=== PATIENT | male | born 1960 | race Caucasian/White ===

== ENCOUNTER 2020-07-29 10:35 | Outpatient (REF) | payer OTHER, SELFPAY | END 2020-07-29 10:36 | disposition home or self-care (01) | LOC: HO.LAB 10:35 | PROVIDERS: PCP Internal Medicine; Visit Provider Internal Medicine | DX: Z20.822 Contact with and (suspected) exposure to COVID-19 (principal) | CPT/HCPCS: 36415; C9803; U0003; U0005 ==

== ENCOUNTER → 2020-09-02 09:17 | Outpatient (BNVA) | payer OTHER, SELFPAY | PROVIDERS: PCP Internal Medicine; Visit Provider Internal Medicine | DX: J44.9 Chronic obstructive pulmonary disease, unspecified (principal); G47.33 Obstructive sleep apnea (adult) (pediatric); Z99.89 Dependence on other enabling machines and devices; Z79.899 Other long term (current) drug therapy | CPT/HCPCS: 99212 ==

== ENCOUNTER → 2021-02-17 10:21 | Outpatient (BNVA) | payer OTHER, SELFPAY | PROVIDERS: PCP Internal Medicine; Visit Provider Internal Medicine | DX: J30.9 Allergic rhinitis, unspecified (principal); J44.9 Chronic obstructive pulmonary disease, unspecified; G47.33 Obstructive sleep apnea (adult) (pediatric); Z99.89 Dependence on other enabling machines and devices | CPT/HCPCS: 99212 ==

== ENCOUNTER → 2021-03-28 10:25 | Outpatient (BNVA) | payer OTHER, SELFPAY | PROVIDERS: PCP Internal Medicine; Visit Provider Urology | DX: N40.1 Benign prostatic hyperplasia with lower urinary tract symptoms (principal); N52.9 Male erectile dysfunction, unspecified; E29.1 Testicular hypofunction | CPT/HCPCS: Q3014 ==

== ENCOUNTER → 2021-04-30 14:04 | Outpatient (BNVA) | payer OTHER, SELFPAY | PROVIDERS: PCP Internal Medicine; Visit Provider Urology | DX: Z13.89 Encounter for screening for other disorder (principal) | CPT/HCPCS: Q3014 ==

== ENCOUNTER → 2021-08-25 09:06 | Outpatient (BNVA) | payer OTHER, SELFPAY | PROVIDERS: PCP Internal Medicine; Visit Provider Internal Medicine | DX: G47.33 Obstructive sleep apnea (adult) (pediatric) (principal); J44.9 Chronic obstructive pulmonary disease, unspecified; J30.9 Allergic rhinitis, unspecified; Z99.89 Dependence on other enabling machines and devices | CPT/HCPCS: 99212 ==

== ENCOUNTER → 2021-11-05 10:16 | Outpatient (BNVA) | payer OTHER, SELFPAY | PROVIDERS: PCP Internal Medicine; Referring Provider Internal Medicine; Visit Provider Physician Assistant | DX: Z12.11 Encounter for screening for malignant neoplasm of colon (principal); K21.9 Gastro-esophageal reflux disease without esophagitis; J44.9 Chronic obstructive pulmonary disease, unspecified; I49.9 Cardiac arrhythmia, unspecified; G47.33 Obstructive sleep apnea (adult) (pediatric); Z99.89 Dependence on other enabling machines and devices | CPT/HCPCS: 99202; 99212 ==

== ENCOUNTER 2021-11-11 14:18 | Outpatient (REF) | payer OTHER, SELFPAY ==
[2021-11-11 14:47] LABS: MANUAL DIFF FLAG NO
[2021-11-11 15:23] LABS: Basophils Absolute Auto 0.1 X10*3/uL (0.0-0.2); Basophils Percent Auto 0.7 % (0-2); Eosinophils Absolute Auto 0.3 X10*3/uL (0.0-0.4); Eosinophils Percent Auto 3.8 % (0-4); Hematocrit 40.1 % (42.0-52.0); Hemoglobin 12.6 g/dl (14.0-18.0); Imm Gran Abs Auto 0.05 X10*3/uL (0.00-0.03); Imm Gran Pct Auto 0.6 % (0.0-0.4); Mean Corpuscular HGB Conc 31.4 g/dl (31.0-36.0); Mean Corpuscular Hemoglobin 27.2 pg (27.0-33.0); Mean Corpuscular Volume 86.4 fL (80.0-98.0); Mean Platelet Volume 10.6 fL (9.4-12.4); Monocytes Absolute Auto 0.7 X10*3/uL (0.1-1.2); Monocytes Percent Auto 7.4 % (2-11); Neutrophils Percent Auto 65.5 % (45-73); Platelet Count 249 X10*3/uL (160-400); Red Blood Count 4.64 X10*6/uL (4.60-5.80); Red Cell Distribution Width 15.2 % (11.0-16.0); White Blood Count 9.1 X10*3/uL (4.8-10.8)
[2021-11-11 15:44] LABS: Alanine Aminotransferase 38 U/L (0-40); Alkaline Phosphatase 76 U/L (39-117); Anion Gap 15 (12-20); Aspartate Amino Transferase 25 U/L (5-37); Bilirubin Total 0.3 mg/dL (0.0-1.0); Blood Urea Nitrogen 11 mg/dL (9-16); Calcium 10.1 mg/dL (8.4-10.2); Carbon Dioxide 31 mmol/L (22-29); Chloride 100 mmol/L (96-108); Estimated Glomerular Filt Rate 27; Glucose Random 157 mg/dL (60-115); Potassium 3.4 mmol/L (3.3-5.1); Sodium 143 mmol/L (135-145); Total Protein 6.7 g/dL (6.5-8.0)
[2021-11-11 16:05] LABS: PSA,Total (Free>4and<10) 1.91 ng/mL (0.00-4.00); Thyroid Stimulating Hormone 0.91 uIU/mL (0.32-4.0)
[2021-11-17 08:03] LABS: Testosterone, Free 316.1 pg/mL (35.0-155.0); Testosterone, Total 911 ng/dL (250-1100)
[2021-11-17 13:26] LABS: Testosterone, Total 792 ng/dL (250-1100)
== END 2021-11-11 14:19 | disposition home or self-care (01) ==
LOC: HO.LAB 14:18
PROVIDERS: Urology; PCP Internal Medicine; Visit Provider Physician Assistant
DX: Z12.5 Encounter for screening for malignant neoplasm of prostate (principal); N40.1 Benign prostatic hyperplasia with lower urinary tract symptoms; E29.1 Testicular hypofunction; I49.9 Cardiac arrhythmia, unspecified; K21.9 Gastro-esophageal reflux disease without esophagitis
CPT/HCPCS: 36415; 80053; 84153; 84402; 84403; 84443; 85025

== ENCOUNTER → 2021-11-18 11:23 | Outpatient (BNVA) | payer OTHER, SELFPAY | PROVIDERS: PCP Internal Medicine; Visit Provider Urology | DX: E29.1 Testicular hypofunction (principal); N52.9 Male erectile dysfunction, unspecified; N40.1 Benign prostatic hyperplasia with lower urinary tract symptoms; N13.8 Other obstructive and reflux uropathy | CPT/HCPCS: 51798; 99212 ==

== ENCOUNTER → 2021-12-18 10:16 | Outpatient (BNVA) | payer OTHER, SELFPAY | PROVIDERS: PCP Internal Medicine; Visit Provider Physician Assistant | DX: K21.9 Gastro-esophageal reflux disease without esophagitis (principal); R14.0 Abdominal distension (gaseous); I49.9 Cardiac arrhythmia, unspecified | CPT/HCPCS: Q3014 ==

== ENCOUNTER 2021-12-31 08:43 | Outpatient (REF) | payer OTHER, SELFPAY ==
[2022-01-01 14:11] LABS: H Pylori Breath Test Positive (Negative)
== END 2021-12-31 08:44 | disposition home or self-care (01) ==
LOC: HO.LNP 08:43
PROVIDERS: PCP Internal Medicine; Visit Provider Physician Assistant
DX: A04.8 Other specified bacterial intestinal infections (principal); Z11.0 Encounter for screening for intestinal infectious diseases
CPT/HCPCS: 83013; 99211

== ENCOUNTER 2022-02-10 08:49 | Outpatient (REF) | payer OTHER, SELFPAY ==
--- NOTE | ~2022-02-10 | US_ITS ---
EXAMINATION: US COMPLETE ABDOMEN WITH LIVER ELASTOGRAPHY CLINICAL INFORMATION: Obesity COMPARISON: None. TECHNIQUE: Real-time imaging of the abdominal viscera. Noninvasive ultrasound liver fibrosis assessment is performed using Emelina ElastPQ point quantification shear wave elastography (2D-SWE) with a C5-2 MHz transducer. Multiple elastography samples are obtained. FINDINGS: PANCREAS: The visualized pancreatic head and body are normal in appearance. The remainder of the pancreas is obscured from visualization by the overlying bowel gas. ABDOMINAL AORTA: The proximal and mid abdominal aorta are normal in caliber. The distal abdominal aorta is not visualized due to bowel gas. INFERIOR VENA CAVA: Visualized portions are normal. LIVER: Liver echotexture is increased. The liver is enlarged. The liver contour is normal. No focal lesion or intrahepatic biliary duct dilatation. The right lobe measures 20 cm in length. The left lobe measures 14 cm in length. Portal flow is normal/hepatopedal Shear wave liver elastography median stiffness is 1.75 m/s (reference: normal median stiffness is 1.3 m/s or less). IQR/median stiffness to assess sampling precision is 0.08 (reference: good quality data set is IQR/median stiffness of 0.15 or less). GALLBLADDER: The gallbladder is normal in size. There are gallstones. The gallbladder wall is normal. There is no pericholecystic fluid. COMMON BILE DUCT: Normal in caliber measuring 0.6 cm in diameter. RIGHT KIDNEY: There are 3 cysts measuring 2.4 x 2.6 x 2.5 cm in the upper pole, 2.4 x 1.8 x 2.1 cm in the midpole with single thin septation and 1.9 x 1.3 x 2.2 cm in the lower pole.. No hydronephrosis. No renal calculi. The kidney measures 11.5 cm in maximum dimension. LEFT KIDNEY: There is a 0.6 cm cyst in the lower pole. No hydronephrosis. No renal calculi. The kidney measures 11 cm in maximum dimension. SPLEEN: Normal. The spleen measures 9.4 cm in maximum dimension. FREE FLUID: None. US/US abdomen comp w elastography IMPRESSION: 1. Impression: Enlarged echogenic liver suggestive of fatty infiltration. Gallstones. Bilateral renal cysts. Limited visualization of the distal abdominal aorta and tail the pancreas. 2. Liver elastography: Adequate liver sampling. Borderline elevated liver stiffness. REFERENCE: Society of Radiologists in Ultrasound Liver Stiffness Thresholds (2020): LIVER STIFFNESS THRESHOLDS: *Liver Stiffness equal or less than 1.3 m/s: High probability of being normal. *Liver Stiffness less than 1.7 m/s: In the absence of other known clinical signs, rules out compensated advanced chronic liver disease. *Liver Stiffness 1.7-2.1 m/s: Suggestive of compensated advanced chronic liver disease but need further test for confirmation. *Liver Stiffness over 2.1 m/s: Rules in compensated advanced chronic liver disease. *Liver Stiffness over 2.4 m/s: Suggestive of clinically significant portal hypertension. QUALITY OF DATA SET: *IQR/Median value equal or less than 0.15 implies a quality data set. *IQR/Median value over 0.15 implies a poor quality data set. SIGNIFICANT CHANGE FROM PRIOR EXAM: Significant change if liver stiffness measurement is 10% or greater from prior exam. OTHER CONSIDERATIONS: The stage of liver fibrosis may be overestimated in the setting of acute hepatitis, liver inflammation, elevated liver function tests, hepatic vascular congestion, obstructive cholestasis, non-fasting state, and infiltrative diseases such as amyloidosis and lymphoma. In some patients with NAFLD, the liver stiffness thresholds for compensated advanced chronic liver disease may be lower. In causes other than viral hepatitis and NAFLD, liver stiffness thresholds are not well established.
== END 2022-02-10 08:50 | disposition home or self-care (01) ==
LOC: HO.US 08:49
PROVIDERS: Visit Provider Physician Assistant
DX: E66.9 Obesity, unspecified (principal); R14.0 Abdominal distension (gaseous); Z87.898 Personal history of other specified conditions
CPT/HCPCS: 76705; 76981

== ENCOUNTER → 2022-02-19 14:45 | Outpatient (BNVA) | payer OTHER, SELFPAY | PROVIDERS: PCP Internal Medicine; Referring Provider Physician Assistant; Visit Provider Internal Medicine | DX: I49.3 Ventricular premature depolarization (principal); I10 Essential (primary) hypertension; R06.02 Shortness of breath; E66.9 Obesity, unspecified; Z68.31 Body mass index [BMI] 31.0-31.9, adult | CPT/HCPCS: 93005; 99202 ==

== ENCOUNTER → 2022-02-26 09:44 | Outpatient (BNVA) | payer OTHER, SELFPAY | PROVIDERS: PCP Internal Medicine; Visit Provider Physician Assistant | DX: Z12.11 Encounter for screening for malignant neoplasm of colon (principal); J44.9 Chronic obstructive pulmonary disease, unspecified; I49.9 Cardiac arrhythmia, unspecified; A04.8 Other specified bacterial intestinal infections | CPT/HCPCS: 99212 ==

== ENCOUNTER → 2022-02-27 10:29 | Outpatient (BNVA) | payer OTHER, SELFPAY | PROVIDERS: PCP Internal Medicine; Referring Provider Internal Medicine | DX: Z11.2 Encounter for screening for other bacterial diseases (principal) | CPT/HCPCS: 99211 ==

== ENCOUNTER 2022-02-27 17:43 | Outpatient (REF) | payer OTHER, SELFPAY ==
[2022-03-01 14:59] LABS: H Pylori Breath Test Negative (Negative)
== END 2022-02-27 17:44 | disposition home or self-care (01) ==
LOC: HO.LNP 17:43
PROVIDERS: Visit Provider Physician Assistant
DX: A04.8 Other specified bacterial intestinal infections (principal)
CPT/HCPCS: 83013

== ENCOUNTER → 2022-03-17 15:01 | Outpatient (BNVA) | payer OTHER, SELFPAY | PROVIDERS: PCP Internal Medicine; Visit Provider Internal Medicine | DX: G47.33 Obstructive sleep apnea (adult) (pediatric) (principal); J30.9 Allergic rhinitis, unspecified; J44.9 Chronic obstructive pulmonary disease, unspecified; Z99.89 Dependence on other enabling machines and devices | CPT/HCPCS: 99212 ==

== ENCOUNTER → 2022-04-14 08:22 | Outpatient (REF) | payer OTHER, SELFPAY ==
--- NOTE | 2022-04-14 08:27 | CA_ITS ---
Transthoracic Echocardiogram Patient (Last, First, Middle): Po Bower P Gender: Male Date of : 1960 Age: 62 Procedure Date: 04/14/2022 Procedure Type: Transthoracic Echocardiogram Location: OP Height: 177.8 cm Weight: 95.71 kg BSA: 2.14 m2 Heart Rate: bpm BP: 130 / 72 mmHg Wire Photo Operator: TO Referring MD: Kai Beard MD Program Manager Environmental Planning: Andrew Woods MD Symptoms: R06.02 - Shortness of breath Study Quality: Fair ECG Rhythm: Sinus Conclusions: - 1. Low normal LV systolic function with impaired relaxation filling pattern with possible wall motion abnormality the basal inferior wall 2. Normal cardiac valvular Doppler 3. Normal RV systolic pressure 4. No gross pericardial effusion Findings Left Ventricle Normal left ventricular cavity size. There is normal left ventricular wall thickness. The left ventricular systolic function is low normal. The visually estimated ejection fraction is between 50-55%. Spectral Doppler is indicative of an impaired relaxation filling pattern. E/E prime ratio is between 8 and 15 consistent with indeterminate filling pressures. Wall Motion Rest Echo Findings The basal inferior segment is hypokinetic. All other scored wall segments showed normal motion. Right Ventricle Normal right ventricular cavity size and systolic function. Atria Both atria are normal in size. Interatrial shunt cannot be excluded. Aortic Valve Normal aortic valve structure and function. There is no aortic valve stenosis. There is no aortic valve regurgitation. Mitral Valve Normal mitral valve structure and function. There is trace mitral valve regurgitation. There is no mitral valve stenosis. Pulmonic Valve The pulmonic valve was not well visualized. Tricuspid Valve Likely normal tricuspid valve structure and function. There is trace tricuspid valve regurgitation. The right ventricular systolic pressure is normal. The right ventricular systolic pressure is 32 mmHg. Normal right atrial pressure. There is no evidence of pulmonary hypertension. Great Vessels All visible segments of the aorta are normal in size. The pulmonary artery was not well visualized. Venous The inferior vena cava is normal in size and collapses greater than 50% with inspiration. Pericardium/Pleural There is no evidence of pericardial effusion. Prior Study Comparison No prior study available for comparison. Measurements 2D Linear Measurements IVSd: 1.13 0.6-0.9/0.6-1.0 cm LVIDd: 5.02 3.9-5.3/4.2-5.9 cm LVIDd Index: 2.35 2.4-3.2/2.2-3.1 cm/m2 LVIDs: 3.44 2.0-3.6 cm LVPWd: 1.00 0.7-1.1 cm LA Diam: 3.10 2.7-3.8/3.0-4.0 cm LAIDs Index: 1.45 1.5-2.3 cm/m2 LV Mass: 248.58 67-162/88-224 g LV Mass Index: 116.16 43-95/49-115 g/m2 LVOT Diam: 2.20 3.0+(-)1.3 cm 2D Systolic Function EF 4C: 50.30 >55% EF 2C: 52.60 >55% EF BiP: 51.70 >55% Mitral Valve MV Pk E: 0.74 MV PK A: 0.65 MV Decel Time: 150.00 E/A: 1.10 E'Lateral: 9.46 E'Medial: 6.42 E/E' Med: 11.50 E/E' Lat: 7.80 PHT: 44.00 MVA PHT: 5.00 Decel Hall: 4.93 Aortic Valve AoV Pk Christopher: 1.31 AoV Mn Christopher: 0.98 AoV VTI: 0.29 AoV Pk Grad: 7.00 Aov Mn Grad: 4.00 SUJEY Cont.VTI: 2.17 LVOT LVOT Pk Christopher: 0.82 LVOT Mn Christopher: 0.51 LVOT VTI: 0.17 LVOT Pk Grad: 3.00 LVOT Mn Grad: 1.00 LVOT Diam: 2.20 LVOT Area: 3.80 Diastolic Function MV Pk E: 0.74 MV Pk A: 0.65 E/A: 1.10 E'Medial: 6.42 E/E' Med: 11.50 E' Laterial: 9.46 E/E' Lat: 7.80 Right Ventricle TAPSE (mm): 21.90 TVS' Christopher: 12.70 Tricuspid Valve TR Pk Christopher: 2.68 TR Pk Grad: 29.00 RA Press: 3.00 RVSP: 32.00 Great Vessels Aorta Sinus of Valsalva: 3.65 2.0-3.5 cm Ao Asc: 3.30 2.1-3.4 cm Updated in Other Vendor System with Status of Final Andrew Woods MD electronically signed on 04/15/2022 4:06:42 PM with status of Final
--- NOTE | 2022-04-14 08:27 | HM_ITS ---
* Total monitoring time 3 days. * Underlying rhythm is sinus. Average ventricular rate 94/Min. Range 56 to 133/Min. About 23% the time, rate greater than 100/Min. * Rare ventricular ectopy. Some couplets. No runs. * Very rare supraventricular ectopy. * No significant pauses or AV blocks. * No diary. MTDD
== END ==
LOC: HO.CARD 08:22
PROVIDERS: Visit Provider Internal Medicine
DX: I49.3 Ventricular premature depolarization (principal); R06.02 Shortness of breath
CPT/HCPCS: 93242; 93306

== ENCOUNTER → 2022-05-19 10:54 | Outpatient (BNVA) | payer OTHER, SELFPAY | PROVIDERS: PCP Internal Medicine; Visit Provider Urology | DX: E29.1 Testicular hypofunction (principal); N52.9 Male erectile dysfunction, unspecified | CPT/HCPCS: 99212 ==

== ENCOUNTER → 2022-05-20 08:48 | Outpatient (REF) | payer OTHER, SELFPAY ==
--- NOTE | ~2022-05-20 | NM_ITS ---
Myocardial perfusion study Indication: Atherosclerotic heart disease to evaluate for myocardial ischemia Technique: The patient was brought in for a Lexiscan perfusion study on 05/20/2022. Patient performed low-level exercise and was injected 0.4 mg of Lexiscan intravenously. Within a minute of injection, 30 mCi of sestamibi was given intravenously. Images were obtained using the SPECT gamma camera interlaced with the gating device. Images were obtained in supine position. Resting perfusion study was performed on 05/21/2022. Patient was administered 30 mCi of sestamibi intravenously at rest. Images were then obtained in supine position. Images obtained with and without CT attenuation. Total DLP 132 mGy-cm. Images were processed with the software and compared side to side in short axis, horizontal long axis and vertical long axis views. Findings: The stress perfusion study showed minimal thinning of the inferior wall of the LV myocardium on non attenuated images as well as normalized uptake in all segments of LV myocardium. Attenuation corrected images show minimal thinning of the basal anterior wall of the LV myocardium.. The gated study shows normal LV systolic function with calculated LVEF of 62%. LV cavity is normal in size. The gated study shows normal systolic wall thickening and contraction of segments. Resting study shows normal uptake of the myocardium. Gating at rest reveals normal systolic wall motion with ejection fraction at greater than 60%. The findings are consistent with normal myocardial perfusion. NM/NM cayla perf SPECT rest & str Impression: 1. Myocardial perfusion imaging study shows normal myocardial perfusion 2. Gated LVEF is 62% 3. Transient ischemic dilatation not present EKG is nondiagnostic for ischemia
--- NOTE | 2022-05-20 08:52 | CA_ITS ---
Acquisition Time: 2022-05-20 09:14:17 Total Exercise Time: 00:02:00 Test Indications: I25.10 Medications: See H Protocol: LEXISCAN Max HR: 117 BPM 73% of Pred: 159 BPM Max BP: 118/079 mmHG Max Work Load: 1.6 METS Pharmacological stress test with Lexiscan injection, while walking slow on treadmill for 2 min without anginal symptoms, without arrythmia, with normotensive response to injection, with EKG changes suggestive of ischemia. Nuclear images pending. Test reviewed with Dr Beard Referred By: Kai Beard Overread By: JUANITO HARDEN
== END ==
LOC: HO.CARD 08:48
PROVIDERS: Visit Provider Internal Medicine
DX: I25.10 Atherosclerotic heart disease of native coronary artery without angina pectoris (principal)
CPT/HCPCS: 78452; 93017; A9500; J0280; J2785

== ENCOUNTER → 2022-06-18 10:16 | Outpatient (BNVA) | payer OTHER, SELFPAY | PROVIDERS: PCP Internal Medicine; Visit Provider Internal Medicine | DX: J44.9 Chronic obstructive pulmonary disease, unspecified (principal); J30.9 Allergic rhinitis, unspecified; G47.33 Obstructive sleep apnea (adult) (pediatric); E66.9 Obesity, unspecified; Z99.89 Dependence on other enabling machines and devices; Z68.29 Body mass index [BMI] 29.0-29.9, adult | CPT/HCPCS: 99212 ==

== ENCOUNTER → 2022-07-06 10:04 | Outpatient (BNVA) | payer OTHER, SELFPAY | PROVIDERS: PCP Internal Medicine; Referring Provider Internal Medicine; Visit Provider Internal Medicine | DX: I49.3 Ventricular premature depolarization (principal); I10 Essential (primary) hypertension; F17.200 Nicotine dependence, unspecified, uncomplicated; Z71.6 Tobacco abuse counseling | CPT/HCPCS: 99212 ==

== ENCOUNTER 2022-09-22 14:00 | Outpatient (RCR) | payer OTHER, SELFPAY ==
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
[2022-09-08 12:03] VITALS: BP 112/60; PULSE 60; TEMP 37
[2022-09-08 12:06] VITALS: BMI 27.4
--- NOTE | 2022-09-10 15:46 | HO.PHP ---
Clients case was reviewed and opened today in treatment team.
--- NOTE | 2022-09-11 17:06 | HO.PHP ---
At 1:00 business writer checked in with patient to inquire of status of suicidal ideation, plan and intent. Pt was pleasant on appraoch, positive speech, calm affect. Stated he does have SI, does have a plan but states he does not have any intention to act on it. Able to identify ways to manage his SI this weekend, stating he will try no to allow himself to go down that train of thought when thinking about my son . States if negative thoughts occur when thinking about his son, he will distract himself with activity, and if that does not help he will call his therapist. Pt also contracted with business writer to call crisis if his SI increases, before developing intent to act. Pt expressed a positive history with respite, crisis and with utilizing AA supports. Pt completed the Weekend plan, set goals and listed several skills to use this weekend to support staying safe.
--- NOTE | 2022-09-15 09:40 | HO.PHPPROGNO ---
Subjective Subjective Date of Service: 09/15/22 Reason For Visit: OCD,MDD,AUD Medical Problems Affecting Mental Status: No Interim History: Continues with some depression, had a frustrating day yesterday. No SI, feels safe. Continues with some OCD, ?checking things ?, states that it is beginning to improve. Craving alcohol yesterday, continues to abstain from alcohol. Continues working with pyridine recovery operator. Finding groups helpful. Medication Compliance: Yes Side effects from medications: No Attending Groups: Yes Review of Systems Acute medical concerns: No Medical Review of Systems: unchanged Review of Systems Review of Systems Yes all other systems are reviewed and are negative Constitutional: Reports no additional constitutional complaints Mental Status Exam Mental Status Exam Patient Appearance: Appropriate Patient Orientation: Person, Place, Time and Situation Level of Consciousness: Appropriate Patient Behavior: Appropriate, Cooperative and Good Eye Contact Mood Description: Depressed Affect Description: Depressed and Anxious Patient Cognition Impaired: No Ability to Follow Directions: Good Speech Pattern: Clear Memory Description: Intact Hallucinations: None Delusions: Not Present Thought Process: Intact Thought Content: positive for Intact Depressive Symptoms: Increased Anxiety, Loss of Int. in Activity, Isolating-Friends/Family, Feelings of Guilt, Unhappiness, Increased Fatigue, Low Self Esteem, Loss of Energy and Difficulty Concentrating Judgement: Fair Diagnostics Vital Signs (24Hr): BMI result Body Mass Index 27.4 Assessment & Plan Assessment & Plan (1) Major depressive disorder, recurrent severe without psychotic features: Status: Acute Code(s): F33.2 - Major depressive disorder, recurrent severe without psychotic features Assessment and Plan: Continues with some depression, had a frustrating day yesterday. Reports it was mostly circumstantial, a ride was late, etc.. No SI, feels safe. Denies any thoughts of harm to self or others in any way at this time. Continues with some OCD, ?checking things ?, states that it is beginning to improve. Has been taking the increased dose of fluoxetine without any issues. Craving alcohol yesterday, continues to abstain from alcohol. Reports that he believes it was due to his frustration yesterday. Continues working with pyridine recovery operator. Finds working with a pyridine recovery operator helpful. Finding groups helpful. Finding topics, sharing his issues to be beneficial. (2) Obsessive-compulsive disorder, unspecified: Status: Acute Code(s): F42.9 - Obsessive-compulsive disorder, unspecified (3) Alcohol use disorder: Status: Acute Code(s): F10.90 - Alcohol use, unspecified, uncomplicated Plan 1. Continue with current [facility] plan of care. 2. Continue with medications as prescribed. 3. Follow-up as per protocol. Patient educated on: diagnosis, medication risk/benefits, substance abuse and therapeutic strategies Reason for contiued partial hosp. stay Substantial Risk for: harm to self, inability to function and rapid decompensation Certification I certify that partial hospital treatment is medically necessary due to the symptoms and problems resulting from the patient's mental illness and the failure to treat the patient at the partial hospital level of care would likely result in the patient requiring inpatient psychiatric care which could not be prevented at a less intensive level of care. Total time managing care of this patient today _20___ minutes. Discharge Plan Discharge Attending provider: Scott Brown Medications: New fluoxetine 40 mg capsule 80 mg PO DAILY Qty: 60 0RF Discontinued fluoxetine 40 mg capsule 40 mg PO DAILY Patient Comments: Patient reports he takes daily. fluoxetine [Prozac] 20 mg capsule 40 mg PO DAILY Patient Comments: Kizzy Duffy [facility] prescriber increased the dose to 80 mg daily. Rx Instructions: Take 2 tabs daily with 40 mg tab for a total dose of 80 mg daily. No Action ipratropium-albuterol 0.5 mg-3 mg(2.5 mg base)/3 mL solution for nebulization 3 ml inhalation Q4-6H PRN (Reason: for wheezing) Qty: 180 0RF Trelegy Ellipta 200-62.5-25 mcg blister with device 1 ea PO DAILY Qty: 60 3RF albuterol sulfate 90 mcg/actuation HFA aerosol inhaler 2 puff PO Q4-6H PRN (Reason: for wheezing) Qty: 8.5 3RF metoprolol tartrate 25 mg tablet 25 mg PO BID 90 Days Qty: 180 2RF tadalafil (pulm. hypertension) 20 mg tablet 20 mg PO DAILY PRN (Reason: sexual activity) Qty: 90 1RF Patient Comments: Confimed with [facility] pharmacy. Patient not on 20 mg tab not 10 mg tab. Rx Instructions: administer approximately 30min before sexual activity; do not use more than 1 dose per 24hrs prednisone 5 mg tablet 5 mg PO DAILY PRN (Reason: maintenance) Qty: 30 1RF azelastine 137 mcg (0.1 %) aerosol,spray 1 spray intranasal BID Qty: 30 0RF nabumetone 750 mg tablet 750 mg PO BID PRN (Reason: pain) bupropion HCl 300 mg tablet extended release 24 hr 300 mg PO DAILY Rx Instructions: Take with 150 mg tab for total of 450 mg daily. cholecalciferol (vitamin D3) 25 mcg (1,000 unit) tablet 25 mcg PO DAILY aspirin 81 mg tablet,delayed release (DR/EC) 81 mg PO DAILY atorvastatin 80 mg tablet 80 mg PO DAILY bupropion HCl 150 mg tablet extended release 24 hr 150 mg PO DAILY lorazepam 1 mg tablet 1 mg PO TID PRN (Reason: Anxiety) ketotifen fumarate [Alaway] 0.025 % (0.035 %) drops 1 drp ophthalmic (eye) naltrexone 50 mg tablet 25 mg PO DAILY quetiapine 100 mg tablet 200 mg PO BEDTIME multivitamin with folic acid [Daily-Sadi (with folic acid)] 400 mcg tablet 1 tab PO DAILY alum-mag hydroxide-simeth [Antacid Plus Anti-Gas] 400-400-40 mg/5 mL suspension PO acetaminophen 500 mg tablet 1,000 mg PO Q4-6H PRN (Reason: Pain) amlodipine 10 mg tablet 10 mg PO DAILY (DME) FreeStyle Lite Strips Strip See Rx Instructions .ROUTE TID Qty: 10 Rx Instructions: As directed (DME) blood-glucose meter [FreeStyle [place] Lite] Kit See Rx Instructions .ROUTE .MEDSUPPLY Qty: 1 Rx Instructions: As directed (DME) lancets [FreeStyle Lancets] 28 gauge misc See Rx Instructions .ROUTE TID Qty: 100 Rx Instructions: As directed alcohol swabs [Alcohol Prep Pads] Pads, Medicated 1 pad topical TID testosterone 20.25 mg/1.25 gram (1.62 %) gel in metered-dose pump 2 pump topical DAILY 30 Days Qty: 75 5RF Rx Instructions: apply 2 pumps over max area - alternate shoulders on alternate days quetiapine 50 mg tablet 50 mg PO DAILY PRN (Reason: Anxiety) furosemide 40 mg tablet 40 mg PO BID gabapentin 600 mg tablet 600 mg PO BID Jardiance 25 mg tablet 25 mg PO QAM
--- NOTE | 2022-09-24 08:28 | HO.PHP ---
Spoke to Po on 09/24/22 to follow up with him due to calling out. [facility] staff reminded Po that today was his last day and explored if he would like to come in tomorrow to say goodbye to the group. Po stated he was aware it was his last day but is feeling unwell and currently at [facility] for the stomach bug. Po asked [facility] staff what he should do. [facility] staff voiced that is his decision. Po stated he doesn't believe he will be able to make it in tomorrow and Wednesday and Wednesday he has appointments. [facility] staff was receptive and asked if he is comfortable with discharging today. Po noted that he is and stated he feels he received the supports he needs and thanked the staff.
== END 2022-09-24 23:59 | disposition home or self-care (01) ==
LOC: HO.PHPA 14:00
PROVIDERS: Visit Provider Psychiatry & Neurology Psychiatry
DX: F33.2 Major depressive disorder, recurrent severe without psychotic features (principal); F42.9 Obsessive-compulsive disorder, unspecified; F10.20 Alcohol dependence, uncomplicated
CPT/HCPCS: 90791; 90853

== ENCOUNTER 2022-12-02 10:38 | Outpatient (AMB) | payer OTHER, SELFPAY ==
--- NOTE | 2022-12-02 11:26 | MHC.OFFVIS ---
Intake Intake Visit Reasons: 6M Labs(set) Intake Note: Patient presents today for a 6mo follow-up Meds- Furosemide Allergies to Antibiotic- None Blood Thinner- Aspirin Boring Machine Operator Required: No Accompanied by: Self / Same As Patient Allergies No Known Allergies [No Known Allergies*] Allergy (Verified 07/06/22 10:15) Medication List - Last Reconciled 12/02/22 by Vincent Smith MD acetaminophen 1,000 mg PO Q4-6H PRN albuterol sulfate 90 mcg/actuation 2 puffs PO Q4-6H PRN alcohol swabs (Alcohol Prep Pads) 1 pad topical TID alum-mag hydroxide-simeth 400-400-40 mg/5 mL (Antacid Plus Anti-Gas) mL PO amlodipine 10 mg PO DAILY aspirin 81 mg PO DAILY atorvastatin 80 mg PO DAILY azelastine 1 spray intranasal BID 90 days blood sugar diagnostic (FreeStyle Lite Strips) As directed blood-glucose meter (FreeStyle [place] Lite kit) As directed bupropion HCl 300 mg PO DAILY bupropion HCl 150 mg PO DAILY cholecalciferol (vitamin D3) 25 mcg PO DAILY empagliflozin (Jardiance) 25 mg PO QAM fluoxetine 80 mg (2 x 40 mg) PO DAILY furosemide 40 mg PO BID gabapentin 600 mg PO BID ipratropium-albuterol 0.5 mg-3 mg(2.5 mg base)/3 mL 1.5 mL inhalation Q4-6H PRN ketotifen fumarate 0.025%(0.035%) (Alaway) 1 drp ophthalmic (eye) lancets (FreeStyle Lancets) As directed lorazepam 1 mg PO TID PRN metoprolol tartrate 25 mg PO BID 90 days multivitamin with folic acid 400 mcg (Daily-Sadi (with folic acid)) 1 tab PO DAILY nabumetone 750 mg PO BID PRN naltrexone 25 mg PO DAILY prednisone 5 mg PO DAILY PRN quetiapine 50 mg PO DAILY PRN quetiapine 200 mg PO BEDTIME tadalafil (pulm. hypertension) 20 mg PO DAILY PRN terazosin 5 mg PO BEDTIME 30 days testosterone 2 pumps topical DAILY 30 days Trelegy Ellipta 200-62.5-25 mcg (sishismhrpc-rmtuwpnlc-tpwwknuj) 1 ea PO DAILY NS HPI HPI Comments History of Present Illness Details Po is a pleasant male. He is seen for the following urologic conditions - lower urinary tract symptoms - erectile dysfunction - hypogonadism Continue good response to testosterone gel Partial erections with daily tadalafil Reiterate 10 mg daily tadalafil 20 mg on demand tadalafil Does report weakness of stream Trial terazosin Hypogonadism Initial symptoms Feels that he is decreased energy, Lack of libido Laboratories 03/27 T 128, 04/27 201, 11/26 792 1.9, 04/28 362 1.7, 11/27 430 1.3 Testosterone replacement with gel Improved symptoms with energy on testosterone Erectile dysfunction Longstanding progressive Partial response to daily 10 mg Increased to 20 mg on demand Lower urine tract symptoms Laser procedure performed number of years ago Feels he is doing well with emptying Adequate stream maintained No current medications PSA 02/25 2.0 Social note patient's son at age 21 2017 years ago from a heroin overdose at [facility] Medical History Allergic rhinitis BPH loc w urin obs/LUTS COPD (chronic obstructive pulmonary disease) Elevated PSA History of alcohol use VIRAJ on CPAP Type 2 diabetes mellitus with unspecified complications Surgical History History of back surgery History of back surgery Family History Father HTN (hypertension) Social History Household Members: Other Household Members Other:: 2 Rabbits Alcohol intake: former Patient Tobacco Use Status: Current everyday Tobacco user Tobacco use type: Cigarette Cigarettes Per Day: 10 Years Smoked: 30 +/- Review of Systems Const Denies chills and Denies fever(s) Card Reports no additional complaints and Denies syncope Resp Denies cough GI Denies abdominal pain and Denies heartburn Reports as per HPI and Denies change in libido Neuro Denies syncope Psych Denies change in libido Endo Denies change in libido Physical Exam Const General: cooperative, healthy appearing, comfortable and no acute distress Orientation/consciousness: patient oriented x3 HEENT Face and sinus: Yes normal facial exam Mouth: moist mucous membranes Neck Neck: Yes normal visual inspection, Yes full ROM and Yes trachea midline Chest Chest palpation & inspection: normal inspection of the chest Resp Effort & Inspection: normal respiratory effort, able to speak in complete sentences and no respiratory distress GI Inspection: Yes normal to inspection Back/Spine/Pelvis Cervical Spine: normal cervical lordosis Thoracic/Lumbar Spine: thoracic and lumbar spine normal to inspection Skin General skin exam: no rashes or lesions noted Neuro General: patient oriented x3, gait normal, tone normal and moves all extremities Extrem General: Yes normal to inspection and Yes capillary refill normal Results AMB Urinalysis, Automated UA Leukoctes 0 Kenyatta/uL Last Edit by FROILAN Herrera on 12/02/22 11:51 UA Nitrite Negative Last Edit by Faye Benavides Kelsey on 12/02/22 11:51 UA Urobilinogen 0.2 mg/dL Last Edit by Faye Benavides Kelsey on 12/02/22 11:51 UA Protein 0 mg/dL Last Edit by Faye Benavides [facility] on 12/02/22 11:51 UA pH 7.0 Last Edit by Faye Benavides Kelsey on 12/02/22 11:51 UA Blood 0 Gregorio/uL Last Edit by Faye Benavides [facility] on 12/02/22 11:51 UA Specific [place] 1.010 Last Edit by FROILAN Herrera on 12/02/22 11:51 UA Ketone Negative Last Edit by Faye Benavides Kelsey on 12/02/22 11:51 UA Bilirubin 0 mg/dL Last Edit by Faye Benavides Kelsey on 12/02/22 11:51 UA Glucose 500 mg/dL Last Edit by Faye Benavides [facility] on 12/02/22 11:51 2+ Faye Benavides 12/02/22 11:51 Results Reviewed Results Reviewed: Laboratory Last Values Urine pH (Auto) 7.0 12/02/22 11:48 Specific [place] (Auto) 1.010 12/02/22 11:48 Urine Protein (Auto) 0 mg/dL 12/02/22 11:48 Glucose (UA)(Auto) 500 mg/dL 12/02/22 11:48 Urine Ketones (Auto) Negative 12/02/22 11:48 Urine Blood (Auto) 0 Gregorio/uL 12/02/22 11:48 Urine Nitrite (Auto) Negative 12/02/22 11:48 Urine Bilirubin (Auto) 0 mg/dL 12/02/22 11:48 Urine Urobilinogen (Auto) 0.2 mg/dL 12/02/22 11:48 Leukocyte Esterase (Auto) 0 Kenyatta/uL 12/02/22 11:48 Assessment & Plan Assessment & Plan (1) BPH loc w urin obs/LUTS: Code(s): N40.1 - Benign prostatic hyperplasia with lower urinary tract symptoms (2) Hypogonadism in male: Code(s): E29.1 - Testicular hypofunction Plan Trial terazosin Orders: Orders AMB Urinalysis Automated 12/02/22 Z13.9 - Encounter for screening, unspecified Medications: New terazosin 5 mg PO BEDTIME 30 caps 1RF 30 days N40.1 - Benign prostatic hyperplasia with lower urinary tract symptoms, R35.0 - Frequency of micturition Patient Instructions: Imaging studies, laboratory and physical exam results were discussed and reviewed in detail. No major barriers to patient understanding were identified. An opportunity to ask questions regarding the treatment plan was provided. All questions were answered. The patient expressed understanding and agreement with the above treatment plan. The patient is aware they should contact our office by phone for worsening of their current condition or the appearance of new urologic symptoms. Compliance is encouraged with any medications and followup testing that is ordered. It is a privilege to participate in the urologic care of your patient. If you have any questions or concerns regarding treatment for the above conditions, or other urologic issues, please do not hesitate to contact me. The office telephone contact is [phone]. This note is constructed using voice recognition software. While every effort has been made to ensure accuracy linen room worker errors may have been included. Yours sincerely, Dr Vincent Smith MD, [facility] - Urology Providers of Expert, Compassionate Care for the Genitourinary System Coding Level of Care Code Est Pt Level 3 (64826) Diagnoses BPH loc w urin obs/LUTS N40.1 Hypogonadism in male E29.1
== END 2022-12-02 11:40 | disposition home or self-care (01) ==
PROVIDERS: Visit Provider Urology
DX: N40.1 Benign prostatic hyperplasia with lower urinary tract symptoms (principal); E29.1 Testicular hypofunction
CPT/HCPCS: 99213

== ENCOUNTER → 2022-12-02 10:38 | Outpatient (BNVA) | payer OTHER, SELFPAY | PROVIDERS: Visit Provider Urology | DX: N40.1 Benign prostatic hyperplasia with lower urinary tract symptoms (principal); N13.8 Other obstructive and reflux uropathy; E29.1 Testicular hypofunction; N52.9 Male erectile dysfunction, unspecified; Z79.82 Long term (current) use of aspirin; Z79.899 Other long term (current) drug therapy | CPT/HCPCS: 99212 ==

== ENCOUNTER 2023-01-07 15:01 | Outpatient (REF) | payer OTHER, SELFPAY ==
[2023-01-07 18:21] LABS: Anion Gap 19 (12-20); Blood Urea Nitrogen 23 mg/dL (9-16); Calcium 9.5 mg/dL (8.4-10.2); Carbon Dioxide 22 mmol/L (22-29); Chloride 103 mmol/L (96-108); Estimated Glomerular Filt Rate 32; Glucose Random 87 mg/dL (60-115); Potassium 3.2 mmol/L (3.3-5.1); Sodium 141 mmol/L (135-145)
== END 2023-01-07 15:02 | disposition home or self-care (01) ==
LOC: HO.CHCLDS 15:01
PROVIDERS: Visit Provider Family Medicine
DX: N17.9 Acute kidney failure, unspecified (principal)
CPT/HCPCS: 36415; 80048

== ENCOUNTER 2023-01-21 14:55 | Outpatient (REF) | payer OTHER, SELFPAY ==
[2023-01-21 17:53] LABS: Alanine Aminotransferase 77 U/L (0-40); Albumin Level 4.2 g/dL (3.5-5.0); Alkaline Phosphatase 67 U/L (39-117); Anion Gap 17 (12-20); Aspartate Amino Transferase 25 U/L (5-37); Bilirubin Total 0.4 mg/dL (0.0-1.0); Blood Urea Nitrogen 19 mg/dL (9-16); Calcium 10.1 mg/dL (8.4-10.2); Carbon Dioxide 25 mmol/L (22-29); Chloride 101 mmol/L (96-108); Estimated Glomerular Filt Rate 26; Glucose Random 95 mg/dL (60-115); Potassium 3.7 mmol/L (3.3-5.1); Sodium 139 mmol/L (135-145); Total Protein 7.1 g/dL (6.5-8.0)
[2023-01-22 04:39] LABS: ~HepC Num1 0.07 S/CO (0.00-0.79); ~Hepatitis C Antibody Nonreactive (Nonreactive)
[2023-01-27 16:48] LABS: HIV RNA PCR Qn Copies Not Detected Copies/mL; HIV RNA PCR Qn Log Copies Not Detected Log cps/mL
== END 2023-01-21 14:56 | disposition home or self-care (01) ==
LOC: HO.CHCLDS 14:55
PROVIDERS: Visit Provider Internal Medicine
DX: E11.22 Type 2 diabetes mellitus with diabetic chronic kidney disease (principal); N18.32 Chronic kidney disease, stage 3b; Z79.4 Long term (current) use of insulin
CPT/HCPCS: 36415; 80053; 86803; 87536; 87900

== ENCOUNTER 2023-04-07 13:59 | Outpatient (REF) | payer OTHER, SELFPAY ==
[2023-04-08 10:41] LABS: CDiff Gene PCR NEGATIVE (Negative)
[2023-04-08 10:55] LABS: MANUAL DIFF FLAG NO
[2023-04-08 10:56] LABS: Basophils Absolute Auto 0.1 X10*3/uL (0.0-0.2); Basophils Percent Auto 0.9 % (0-2); Eosinophils Absolute Auto 0.4 X10*3/uL (0.0-0.4); Eosinophils Percent Auto 4.9 % (0-4); Hematocrit 44.5 % (42.0-52.0); Hemoglobin 13.7 g/dl (14.0-18.0); Imm Gran Abs Auto 0.09 X10*3/uL (0.00-0.03); Imm Gran Pct Auto 1.2 % (0.0-0.4); Lymphocytes Absolute Auto 1.7 X10*3/uL (1.2-4.9); Lymphocytes Percent Auto 22.6 % (20-40); Mean Corpuscular HGB Conc 30.8 g/dl (31.0-36.0); Mean Corpuscular Hemoglobin 30.2 pg (27.0-33.0); Mean Platelet Volume 10.5 fL (9.4-12.4); Monocytes Absolute Auto 0.3 X10*3/uL (0.1-1.2); Monocytes Percent Auto 4.5 % (2-11); Neutrophils Percent Auto 65.9 % (45-73); Platelet Count 283 X10*3/uL (160-400); Red Blood Count 4.54 X10*6/uL (4.60-5.80); Red Cell Distribution Width 14.6 % (11.0-16.0); White Blood Count 7.6 X10*3/uL (4.8-10.8)
[2023-04-08 11:04] LABS: Anion Gap 16 (12-20); Blood Urea Nitrogen 10 mg/dL (9-16); Calcium 10.1 mg/dL (8.4-10.2); Carbon Dioxide 22 mmol/L (22-29); Chloride 108 mmol/L (96-108); Estimated Glomerular Filt Rate 45; Glucose Random 70 mg/dL (60-115); Potassium 4.4 mmol/L (3.3-5.1); Sodium 142 mmol/L (135-145)
[2023-04-08 14:50] LABS: Adenovirus F 40/41 Not Detected (Not Detect.); Astrovirus Not Detected (Not Detect.); Campylobacter Not Detected (Not Detect.); Cryptosporidium Not Detected (Not Detect.); Cyclospora cayetanensis Not Detected (Not Detect.); E. coli EAEC Not Detected (Not Detect.); E. coli EPEC Not Detected (Not Detect.); E. coli ETEC Not Detected (Not Detect.); E. coli STEC Not Detected (Not Detect.); Entamoeba histolytica Not Detected (Not Detect.); Giardia lamblia Not Detected (Not Detect.); Norovirus GI/GII Not Detected (Not Detect.); Plesiomonas shigelloides Not Detected (Not Detect.); Rotavirus A Not Detected (Not Detect.); Salmonella Not Detected (Not Detect.); Sapovirus Not Detected (Not Detect.); Shigella sp./EIEC Not Detected (Not Detect.); Vibrio Not Detected (Not Detect.); Vibrio Cholerae Not Detected (Not Detect.); Yersinia enterocolitica Not Detected (Not Detect.)
== END 2023-04-07 14:00 | disposition home or self-care (01) ==
LOC: HO.CHCLDS 13:59
PROVIDERS: Visit Provider Internal Medicine
DX: R19.7 Diarrhea, unspecified (principal)
CPT/HCPCS: 36415; 80048; 85025; 87177; 87209; 87329; 87493; 87507

== ENCOUNTER 2023-06-15 10:13 | Outpatient (REF) | payer OTHER, SELFPAY ==
[2023-06-15 14:52] LABS: Alanine Aminotransferase 16 U/L (0-40); Albumin Level 4.2 g/dL (3.5-5.0); Alkaline Phosphatase 82 U/L (39-117); Anion Gap 16 (12-20); Aspartate Amino Transferase 17 U/L (5-37); Bilirubin Total 0.6 mg/dL (0.0-1.0); Blood Urea Nitrogen 16 mg/dL (9-16); Calcium 9.9 mg/dL (8.4-10.2); Carbon Dioxide 23 mmol/L (22-29); Chloride 105 mmol/L (96-108); Estimated Glomerular Filt Rate 41; Glucose Random 66 mg/dL (60-115); Potassium 4.3 mmol/L (3.3-5.1); Sodium 140 mmol/L (135-145); Total Protein 7.2 g/dL (6.5-8.0)
== END 2023-06-15 10:14 | disposition home or self-care (01) ==
LOC: HO.CHCLDS 10:13
PROVIDERS: Visit Provider Internal Medicine
DX: E11.22 Type 2 diabetes mellitus with diabetic chronic kidney disease (principal); N18.31 Chronic kidney disease, stage 3a
CPT/HCPCS: 36415; 80053

== ENCOUNTER 2023-07-05 10:01 | Outpatient (AMB) | payer OTHER, SELFPAY ==
[2023-07-05 10:21] VITALS: BP 96/66; PULSE 60; BMI 24.3
--- NOTE | 2023-07-05 10:21 | MHC.OFFVIS ---
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 Required: No Accompanied by: Self / Same As Patient Allergies No Known Allergies [No Known Allergies*] Allergy (Verified 07/06/22 10:15) Medication List - Last Reconciled 07/05/23 by Kai Beard MD acetaminophen 1,000 mg PO Q4-6H PRN albuterol sulfate 90 mcg/actuation (Ventolin HFA) 2 puffs PO Q4-6H PRN alcohol swabs (Alcohol Prep Pads) 1 pad topical TID alum-mag hydroxide-simeth 400-400-40 mg/5 mL (Antacid Plus Anti-Gas) mL PO amlodipine 10 mg PO DAILY aspirin 81 mg PO DAILY atorvastatin 80 mg PO DAILY azelastine 1 spray intranasal BID blood sugar diagnostic (FreeStyle Lite Strips) As directed blood-glucose meter (FreeStyle [place] Lite kit) As directed bupropion HCl 300 mg PO DAILY bupropion HCl 150 mg PO DAILY cholecalciferol (vitamin D3) 25 mcg PO DAILY fluoxetine 80 mg (2 x 40 mg) PO DAILY furosemide 40 mg PO BID gabapentin 600 mg PO BID ipratropium-albuterol 0.5 mg-3 mg(2.5 mg base)/3 mL 1.5 mL inhalation Q4-6H PRN ketotifen fumarate 0.025%(0.035%) (Alaway) 1 drp ophthalmic (eye) lancets (FreeStyle Lancets) As directed lorazepam 1 mg PO TID PRN metoprolol tartrate 25 mg PO BID multivitamin with folic acid 400 mcg (Daily-Sadi (with folic acid)) 1 tab PO DAILY nabumetone 750 mg PO BID PRN naltrexone 25 mg PO DAILY prednisone 5 mg PO DAILY PRN quetiapine 50 mg PO DAILY PRN quetiapine 200 mg PO BEDTIME tadalafil 10 mg PO DAILY 90 days tadalafil (pulm. hypertension) 20 mg PO DAILY PRN terazosin 5 mg PO BEDTIME 30 days testosterone 2 pumps topical DAILY 30 days Trelegy Ellipta 200-62.5-25 mcg (lanjxkevtru-oquyavebf-xckiphcj) 1 ea PO DAILY NS HPI HPI Comments History of Present Illness Details Po returns fo r follow-up. He was seeing Dr. Cruzito siddiqui from [facility] i n the past. No do cumented cardiac i ssues but it seems that he was seen there because of h is risk factor pro file. History of smoking, alcohol e xcess, diabetes, h ypertension, dysli pidemia. Since la st seen, no new ca rdiac issues. No symptoms either. PFS Medical History Allergic rhinitis BPH loc w urin obs/LUTS COPD (chronic obstructive pulmonary disease) Elevated PSA History of alcohol use VIRAJ on CPAP Type 2 diabetes mellitus with unspecified complications Surgical History History of back surgery History of back surgery Family History Father HTN (hypertension) Social History Household Members: Other Household Members Other:: 2 Rabbits Alcohol intake: former Patient Tobacco Use Status: Current everyday Tobacco user Tobacco use type: Cigarette Cigarettes Per Day: 10 Years Smoked: 30 +/- Review of Systems Const Denies weakness ENT Denies dizziness Card Denies chest pain, Denies chest pain with activity, Denies syncope, Denies rapid heart rate, Denies pedal edema, Denies edema, Denies leg edema, Denies lightheadedness, Denies palpitations, Denies dyspnea, Denies dyspnea on exertion and Denies orthopnea Resp Denies cough, Denies dyspnea and Denies dyspnea on exertion GI Denies hematochezia and Denies change in stool character Musc Denies abnormal gait, Denies muscle cramps, Denies muscle weakness, Denies numbness, Denies radiating pain into limb and Denies tingling Neuro Denies abnormal gait, Denies dizziness, Denies syncope, Denies numbness, Denies tingling and Denies weakness Endo Denies palpitations Physical Exam Vital Signs: Last Vital Signs Pulse 60 07/05/23 10:21 BP 96/66 07/05/23 10:21 BMI result Body Mass Index 24.3 Const General: comfortable and no acute distress Orientation/consciousness: patient oriented x3 HEENT Other: Unremarkable Head: Yes normal to inspection Neck Neck: Yes normal visual inspection Chest Chest palpation & inspection: normal inspection of the chest Resp Auscultation: clear to auscultation bilaterally Cardio Palpation: normal PMI Heart sounds: S1 normal heart sound present, S2 normal heart sound present, no gallops, no murmurs and no rubs GI Palpation (GI): Soft to palpation Back/Spine/Pelvis Other: unremarkable Skin General skin exam: no rashes or lesions noted Neuro General: patient oriented x3 Extrem General: Yes normal to inspection Psych Mental Status: mental status grossly normal Office Procedures EKG Details: EKG with sinus rhythm at 60/Min; nonspecific [place] [id number], Complete Assessment & Plan Assessment & Plan (1) Abnormal EKG: Code(s): R94.31 - Abnormal electrocardiogram [ECG] [EKG] (2) VIRAJ on CPAP: Code(s): G47.33 - Obstructive sleep apnea (adult) (pediatric); Z99.89 - Dependence on other enabling machines and devices (3) COPD (chronic obstructive pulmonary disease): Code(s): J44.9 - Chronic obstructive pulmonary disease, unspecified (4) Type 2 diabetes mellitus with unspecified complications: Code(s): E11.8 - Type 2 diabetes mellitus with unspecified complications (5) Essential hypertension: Code(s): I10 - Essential (primary) hypertension (6) Smoking: Code(s): F17.200 - Nicotine dependence, unspecified, uncomplicated (7) Alcohol use disorder: Code(s): F10.90 - Alcohol use, unspecified, uncomplicated Plan Cardiac studies reviewed. EKG with sinus rhythm; nonspecific ST-T changes. Echocardiogram with low-normal LVEF, 50-55%; possible basal inferior hypokinesis; otherwise unremarkable. Another echocardiogram from [facility] from 2021 reported have LVEF of 55-60% but no wall motion abnormalities and otherwise unremarkable. Myocardial perfusion imaging study shows normal perfusion. In the Holter, underlying rhythm was sinus with an average rate of 94/Min. Sinus tachycardia but otherwise unremarkable. Prior records from [facility] also reviewed. According to the notes, he apparently had an abnormal EKG with T inversions in precordial leads and subsequently had workup including echocardiogram and stress test which were also unremarkable. No known coronary disease or cardiomyopathy per documentation. Shortness of breath thought to be from COPD rather than anything else. Overall, no acute or chronic cardiac issues evident. He does indeed have a lot of risk factors however. Mainly needs risk factor modification. Smoking cessation. Alcohol cessation. Discussed about this with him. Total time spent including review of data, counseling, documentation, coordination of care 35 minutes. Coding Level of Care Code Est Pt Level 4 (69215) Diagnoses Abnormal EKG R94.31 VIRAJ on CPAP G47.33; Z99.89 COPD (chronic obstructive pulmonary disease) J44.9 Type 2 diabetes mellitus with unspecified complications E11.8 Essential hypertension I10 Smoking F17.200 Alcohol use disorder F10.90 CPT Codes EKG - CPT: 94635-[id number], Complete ([id number])
== END 2023-07-05 10:49 | disposition home or self-care (01) ==
PROVIDERS: PCP Internal Medicine; Visit Provider Internal Medicine
DX: R94.31 Abnormal electrocardiogram [ECG] [EKG] (principal); G47.33 Obstructive sleep apnea (adult) (pediatric); Z99.89 Dependence on other enabling machines and devices; J44.9 Chronic obstructive pulmonary disease, unspecified; E11.8 Type 2 diabetes mellitus with unspecified complications; I10 Essential (primary) hypertension; F17.200 Nicotine dependence, unspecified, uncomplicated; F10.90 Alcohol use, unspecified, uncomplicated
CPT/HCPCS: 93010; 99214

== ENCOUNTER → 2023-07-05 10:01 | Outpatient (BNVA) | payer OTHER, SELFPAY | PROVIDERS: Visit Provider Internal Medicine | DX: R94.31 Abnormal electrocardiogram [ECG] [EKG] (principal); I10 Essential (primary) hypertension; G47.33 Obstructive sleep apnea (adult) (pediatric); J44.9 Chronic obstructive pulmonary disease, unspecified; E11.8 Type 2 diabetes mellitus with unspecified complications; F10.20 Alcohol dependence, uncomplicated; F17.210 Nicotine dependence, cigarettes, uncomplicated; Z99.89 Dependence on other enabling machines and devices | CPT/HCPCS: 93005; 99212 ==

== ENCOUNTER 2023-08-19 09:25 | Outpatient (REF) | payer OTHER, SELFPAY ==
[2023-08-19 10:22] LABS: MANUAL DIFF FLAG NO
[2023-08-19 10:30] LABS: Basophils Percent Auto 0.3 % (0-2); Eosinophils Absolute Auto 0.7 X10*3/uL (0.0-0.4); Eosinophils Percent Auto 5.6 % (0-4); Hematocrit 38.3 % (42.0-52.0); Hemoglobin 12.6 g/dl (14.0-18.0); Imm Gran Abs Auto 0.03 X10*3/uL (0.00-0.03); Imm Gran Pct Auto 0.3 % (0.0-0.4); Lymphocytes Absolute Auto 1.9 X10*3/uL (1.2-4.9); Lymphocytes Percent Auto 16.1 % (20-40); Mean Corpuscular HGB Conc 32.9 g/dl (31.0-36.0); Mean Corpuscular Hemoglobin 28.3 pg (27.0-33.0); Mean Corpuscular Volume 86.1 fL (80.0-98.0); Mean Platelet Volume 10.3 fL (9.4-12.4); Monocytes Absolute Auto 0.9 X10*3/uL (0.1-1.2); Monocytes Percent Auto 7.7 % (2-11); Neutrophils Absolute Auto 8.3 x10*3/uL (2.0-8.3); Platelet Count 198 X10*3/uL (160-400); Red Blood Count 4.45 X10*6/uL (4.60-5.80); Red Cell Distribution Width 14.4 % (11.0-16.0); White Blood Count 11.8 X10*3/uL (4.8-10.8)
[2023-08-19 10:39] LABS: Venous Blood Gas Refer to POC result
[2023-08-19 10:41] LABS: VBG pCO2 45 mmHg; VBG pH 7.45 (7.32-7.43); VBG pO2 42 mmHg
[2023-08-19 10:42] LABS: VBG Base Excess 7.5 mmol/L; VBG HCO3 32 mmol/L (22-26)
== END 2023-08-19 09:26 | disposition home or self-care (01) ==
LOC: HO.LAB 09:25
PROVIDERS: PCP Internal Medicine; Visit Provider Internal Medicine
DX: J44.9 Chronic obstructive pulmonary disease, unspecified (principal); G47.33 Obstructive sleep apnea (adult) (pediatric); F17.210 Nicotine dependence, cigarettes, uncomplicated; Z99.89 Dependence on other enabling machines and devices; Z79.899 Other long term (current) drug therapy
CPT/HCPCS: 36415; 82803; 85025; 99212

== ENCOUNTER 2023-08-19 09:25 | Outpatient (AMB) | payer OTHER, SELFPAY ==
--- NOTE | 2023-08-19 09:28 | A.OFFVIS_ITS ---
Intake Vital Signs 08/19/23 09:29 Height 5 ft 9 in Weight 165 lb 5.547 oz BMI 24.4 BP 92/60 Blood Pressure Location Lt brachial Position Sitting Pulse 66 Pulse Source Pulse Oximeter Pulse Oximetry (%) 92 Oxygen Delivery Method Room Air Intake Visit Reasons: COPD Intake Note: pt is here for follow up and states he has been in and out of [facility], for ga strointestinal issues and pneumonia, and sugar issues. cpap usage is low, due to all of this. Breathing comes and goes. Tortilla Maker Required: No Allergies No Known Allergies [No Known Allergies*] Allergy (Verified 08/19/23 09:35) Medication List - Last Reconciled 08/19/23 by Tish Girard MD acetaminophen 1,000 mg PO Q4-6H PRN albuterol sulfate 90 mcg/actuation (Ventolin HFA) 2 puffs PO Q4-6H PRN alcohol swabs (Alcohol Prep Pads) 1 pad topical TID alum-mag hydroxide-simeth 400-400-40 mg/5 mL (Antacid Plus Anti-Gas) mL PO amlodipine 10 mg PO DAILY aspirin 81 mg PO DAILY atorvastatin 80 mg PO DAILY azelastine 1 spray intranasal BID blood sugar diagnostic (FreeStyle Lite Strips) As directed blood-glucose meter (FreeStyle Cutler Lite kit) As directed bupropion HCl 300 mg PO DAILY bupropion HCl 150 mg PO DAILY cholecalciferol (vitamin D3) 25 mcg PO DAILY fluoxetine 80 mg (2 x 40 mg) PO DAILY furosemide 40 mg PO BID gabapentin 600 mg PO BID ipratropium-albuterol 0.5 mg-3 mg(2.5 mg base)/3 mL 1.5 mL inhalation Q4-6H PRN ketotifen fumarate 0.025%(0.035%) (Alaway) 1 drp ophthalmic (eye) lancets (FreeStyle Lancets) As directed lorazepam 1 mg PO TID PRN metoprolol tartrate 25 mg PO BID multivitamin with folic acid 400 mcg (Daily-Sadi (with folic acid)) 1 tab PO DAILY naltrexone 25 mg PO DAILY prednisone 5 mg PO DAILY PRN quetiapine 50 mg PO DAILY PRN quetiapine 200 mg PO BEDTIME tadalafil 10 mg PO DAILY 90 days tadalafil (pulm. hypertension) 20 mg PO DAILY PRN terazosin 5 mg PO BEDTIME 30 days testosterone 2 pumps topical DAILY 30 days Trelegy Ellipta 200-62.5-25 mcg ([id number]) 1 ea PO DAILY NS Do you need a note to return to daycare/school/sports/work: No HPI COPD HPI Details This 63 years old gentleman is coming after more than a year for follow-up. He has not been using the CPAP/BiPAP , claiming that he has been in and out of the hospital, mostly at [facility]. He say is he feels claustrophobic when he puts the mask on. However he claims that he sleeps well and denies. Any daytime sleepiness He continues to smoke 1 pack of cigarettes a day.. He say is he continues to have frequent bouts of cough, and is asking for a supply of prednisone. He continues to use Trelegy once a day and also has the nebulizer at home with DuoNeb solution. Which he is supposed to use about 3 times a day as needed. [facility] Medical History Type 2 diabetes mellitus with unspecified complications History of alcohol use Elevated PSA BPH loc w urin obs/LUTS Allergic rhinitis VIRAJ on CPAP COPD (chronic obstructive pulmonary disease) Surgical History History of back surgery History of back surgery Family History Father HTN (hypertension) Social History Household Members: Other Household Members Other:: 2 Rabbits Alcohol intake: former Patient Tobacco Use Status: Current everyday Tobacco user Tobacco use type: Cigarette Cigarettes Per Day: 10 Years Smoked: 30 +/- Review of Systems Const All systems reviewed & are unremarkable except as noted in HPI and below Eyes Reports no additional complaints ENT Reports nasal congestion Card Reports no additional complaints Resp Reports as per HPI GI Reports no additional complaints Reports no additional complaints Musc Reports no additional complaints Skin/Breast Reports system reviewed and no additional complaints, except as documented Neuro Reports no additional complaints Psych Reports no additional complaints Physical Exam Vital Signs: Last Vital Signs Pulse 66 08/19/23 09:29 BP 92/60 08/19/23 09:29 Pulse Ox 92 03/14/24 09:29 Oxygen Delivery Method Room Air 08/19/23 09:29 BMI result Body Mass Index 24.4 Const General: healthy appearing, comfortable, no acute distress, alert and awake Orientation/consciousness: patient oriented x3 HEENT Head: Yes normal to inspection General nose exam: No nasal polyps present and No nasal discharge present Face and sinus: Yes sinuses nontender Mouth: oropharynx normal Throat: Yes posterior oropharynx normal and Yes other (Poor dental hygiene) Eyes General: appearance normal, both eyes and all related structures Neck Neck: Yes normal visual inspection, Yes no lymphadenopathy, No trachea midline (Trach stoma is healed) and Yes no JVD Thyroid: Thyroid normal Chest Chest palpation & inspection: normal inspection of the chest, normal palpation of entire chest wall and no tenderness Resp Other: Percussion note resonant, breath sounds are slightly distant with prolonged expiratory phase. Lungs are mostly clear except for a few scattered wheezes over the basilar areas. Cardio Palpation: normal PMI Rate: regular rate Rhythm: regular rhythm Heart sounds: no gallops and no murmurs Peripheral pulses: Peripheral pulses 2+ throughout GI Palpation (GI): Soft to palpation, nontender, No hepatosplenomegaly present and no masses Auscultation: normal bowel sounds Back/Spine/Pelvis Thoracic/Lumbar Spine: thoracic and lumbar spine normal to inspection Skin General skin exam: no rashes or lesions noted Neuro General: patient oriented x3 and no focal motor deficits Cranial nerves: Yes CN's II-XII intact bilaterally Extrem General: Yes normal to inspection, Yes no clubbing, cyanosis or edema and Yes no calf tenderness Psych Appearance: grossly normal and well kempt Speech and movement: Normal speech and movement present Results Reviewed Results Reviewed: Compliance report for the last 90 nights shows that he has used only for about 2 days. His pressure is supposed to be bilevel Assessment & Plan Assessment & Plan (1) COPD (chronic obstructive pulmonary disease): Comment: He is a case of advanced chronic obstructive pulmonary disease. Reports having frequent bouts of cough which is secondary to his Continued smoking . I think the lung function is as stable as expected. Code(s): J44.9 - Chronic obstructive pulmonary disease, unspecified Plan: Continue to use Trelegy 1 inhalation daily. Korey antonrafts 1 treatment Q 6 hours p.r.n., up to 3 times a day. DO NOT SMOKE. He is asking for prednisone to use when he has increased cough. I explained to him that the best treatment for him is to quit smoking and not use prednisone all the time. (2) VIRAJ on CPAP: Comment: He is supposed to use bilevel CPAP, mostly for his chronic respiratory failure. He has been totally non compliant . I do not think that he will use the CPAP regularly. Code(s): G47.33 - Obstructive sleep apnea (adult) (pediatric); Z99.89 - Dependence on other enabling machines and devices Plan: I talked to him at length and advise that he should try to use CPAP every night. VENOUS BLOOD GAS STUDY IS ORDERED, TO MAKE SURE THAT HE IS NOT CO2 RETAINER. Orders: Orders Complete Blood Count Auto Diff Today G47.33 - Obstructive sleep apnea (adult) (pediatric), J44.9 - Chronic obstructive pulmonary disease, unspecified, Z99.89 - Dependence on other enabling machines and devices Venous Blood Gas Today G47.33 - Obstructive sleep apnea (adult) (pediatric), J44.9 - Chronic obstructive pulmonary disease, unspecified, Z99.89 - Dependence on other enabling machines and devices Coding Level of Care Code Est Pt Level 4 (59869) Diagnoses COPD (chronic obstructive pulmonary disease) J44.9 VIRAJ on CPAP G47.33; Z99.89
[2023-08-19 09:29] VITALS: BP 92/60; PULSE 66; O2SAT 92; BMI 24.4
== END 2023-08-19 09:48 | disposition home or self-care (01) ==
PROVIDERS: PCP Internal Medicine; Visit Provider Internal Medicine
DX: J44.9 Chronic obstructive pulmonary disease, unspecified (principal); G47.33 Obstructive sleep apnea (adult) (pediatric); Z99.89 Dependence on other enabling machines and devices
CPT/HCPCS: 99214

== ENCOUNTER 2023-10-29 13:46 | Outpatient (AMB) | payer OTHER, SELFPAY ==
--- NOTE | 2023-10-29 14:05 | A.OFFVIS_ITS ---
Intake Visit Reasons: Cysto/ follow up Intake Note: Patient presents today for a CYSTOSCOPY Procedure: Meds: Tadalafil, Testo & Terazosin Allergies to Antibiotic: No Known Allergies Blood Thinner: Aspirin Urinalysis test clear for Cysto? YES Disposable Uro-G HD Cystoscope Cannula: Lot: [id number] Exp: 04/01/2027 Allergies No Known Allergies [No Known Allergies*] Allergy (Verified 12/02/23 11:20) HPI Comments Details: Po is a pleasant male. He is seen for the following urologic conditions - lower urinary tract symptoms - erectile dysfunction - hypogonadism Cystoscopy with open bladder neck from prior procedure With bladder instability Trial overactive bladder medications Baseline memory issues so not candidate for oxybutynin Hypogonadism Initial symptoms Feels that he is decreased energy, Lack of libido Laboratories 03/27 T 128, 04/27 201, 11/26 792 1.9, 04/28 362 1.7, 11/27 430 1.3 Testosterone replacement with gel Improved symptoms with energy on testosterone Erectile dysfunction Longstanding progressive Partial response to daily 10 mg Increased to 20 mg on demand Lower urine tract symptoms Laser procedure performed number of years ago Feels he is doing well with emptying Adequate stream maintained No current medications PSA 02/25 2.0 Social note patient's son at age 21 2017 years ago from a heroin overdose at [facility] Medical History Type 2 diabetes mellitus with unspecified complications History of alcohol use Elevated PSA BPH loc w urin obs/LUTS Allergic rhinitis VIRAJ on CPAP COPD (chronic obstructive pulmonary disease) Surgical History History of back surgery History of back surgery Family History Father HTN (hypertension) Social History Household Members: Other Household Members Other:: 2 Rabbits Alcohol intake: former Patient Tobacco Use Status: Current everyday Tobacco user Tobacco use type: Cigarette Cigarettes Per Day: 10 Years Smoked: 30 +/- Review of Systems Const Denies chills and Denies fever(s) Card Reports no additional complaints and Denies syncope Resp Denies cough GI Denies abdominal pain and Denies heartburn Reports as per HPI and Denies change in libido Neuro Denies syncope Psych Denies change in libido Endo Denies change in libido Physical Exam Const General: cooperative, healthy appearing, comfortable and no acute distress Orientation/consciousness: patient oriented x3 HEENT Face and sinus: Yes normal facial exam Mouth: moist mucous membranes Neck Neck: Yes normal visual inspection, Yes full ROM and Yes trachea midline Chest Chest palpation & inspection: normal inspection of the chest Resp Effort & Inspection: normal respiratory effort, able to speak in complete sentences and no respiratory distress GI Inspection: Yes normal to inspection Back/Spine/Pelvis Cervical Spine: normal cervical lordosis Thoracic/Lumbar Spine: thoracic and lumbar spine normal to inspection Skin General skin exam: no rashes or lesions noted Neuro General: patient oriented x3, gait normal, tone normal and moves all extremities Extrem General: Yes normal to inspection and Yes capillary refill normal Office Procedures Cystoscopy Consent Discussed risk and benefit or proposed procedure with the patient. Information consent for procedure given to the patient. Discussed technical aspects, risks, benefits and alternatives in full. Addressed all of the patient's questions and concerns regarding the procedure. The patient demonstrated knowledge and understanding. They wish to proceed with this procedure. Preparation The patient was prepped in the usual manner. A ice cream freezer helper was present and in the room. Genitalia was prepped with betadine solution in a sterile manner. Lidoc suzanne Jelly 2% was placed into the urethra and 16Fr flexible Olympus cystoscope was inserted into the meatus after adequate lubrication. Procedure Cystoscopy performed using a disposable Urovue digital 16 Swedish cystoscope. Meatus circumcised Urethra anterior and posterior urethra Prostatic Urethra open bladder neck Bladder examination with retroflexion of cystoscope Bladder Orifices normal shape and position Bladder Capacity medium Trabeculations grade 2 Cellule Formation - Diverticulum Formation -- Mucosal Erythema - Bladder Tumor --- [id number] DISPOSABLE SCOPE URO-G FLEXIBLE SCOPE Procedure code (CPT) selection complete Office Meds lidocaine HCl 2 % mucosal jelly in applicator Performing Provider: Vincent Smith MD Performing Location: [facility] Administered by: Lesa Rapp RN on 10/29/23 14:13 Dose Route Admin Location Dispensed Lot Number Expiration Date NDC Tire Inspector 10 mL intra-urethral 10 mL nitrofurantoin monohydrate/macrocrystals 100 mg capsule Performing Provider: Vincent Smith MD Performing Location: [facility] Administered by: Lesa Rapp RN on 10/29/23 14:13 Dose Route Admin Location Dispensed Lot Number Expiration Date NDC Tire Inspector 100 mg PO 1 cap naproxen 500 mg tablet Performing Provider: Vincent Smith MD Performing Location: [facility] Administered by: Lesa Rapp RN on 10/29/23 14:13 Dose Route Admin Location Dispensed Lot Number Expiration Date NDC Tire Inspector 500 mg PO 1 tab Results AMB Urinalysis, Automated UA Leukoctes 0 Kenyatta/uL Last Edit by Faye Benavides Kelsey on 10/29/23 14:11 UA Nitrite Negative Last Edit by Faye Benavides [facility] on 10/29/23 14:11 UA Urobilinogen 0.2 mg/dL Last Edit by Faye Benavides Kelsey on 10/29/23 14:1 1 UA Protein 0 mg/dL Last Edit by Faye Benavides [facility] on 10/29/23 14:11 UA pH 7.0 Last Edit by Faye Benavides [facility] on 10/29/23 14:11 UA Blood 0 Gregorio/uL Last Edit by Faye Benavides [facility] on 10/29/23 14:11 UA Specific Troy 1.010 Last Edit by Faye Benavides Kelsey on 10/29/23 14: 11 UA Ketone Negative Last Edit by Faye Benavides [facility] on 10/29/23 14:11 UA Bilirubin 0 mg/dL Last Edit by Faye Benavides [facility] on 10/29/23 14:11 UA Glucose 0 mg/dL Last Edit by Faye Benavides [facility] on 10/29/23 14:11 Results Reviewed Results Reviewed: Laboratory Last Values Urine pH (Auto) 7.0 10/29/23 14:07 Specific Troy (Auto) 1.010 10/29/23 14:07 Urine Protein (Auto) 0 mg/dL 10/29/23 14:07 Glucose (UA)(Auto) 0 mg/dL 10/29/23 14:07 Urine Ketones (Auto) Negative 10/29/23 14:07 Urine Blood (Auto) 0 Gregorio/uL 10/29/23 14:07 Urine Nitrite (Auto) Negative 10/29/23 14:07 Urine Bilirubin (Auto) 0 mg/dL 10/29/23 14:07 Urine Urobilinogen (Auto) 0.2 mg/dL 10/29/23 14:07 Leukocyte Esterase (Auto) 0 Kenyatta/uL 10/29/23 14:07 Assessment & Plan Assessment & Plan (1) Overactive bladder: Code(s): N32.81 - Overactive bladder Category: Medical Plan Trial tolterodine 2 month follow-up Orders: Orders AMB Urinalysis Automated 10/29/23 Z13.9 - Encounter for screening, unspecified AMB Cystoscopy 10/29/23 N40.1 - Benign prostatic hyperplasia with lower urinary tract symptoms Medications: New tolterodine ER 2 mg PO DAILY 30 caps 1RF 30 days N32.81 - Overactive bladder, R39.15 - Urgency of urination Patient Instructions: Imaging studies, laboratory and physical exam results were discussed and reviewed in detail. No major barriers to patient understanding were identified. An opportunity to ask questions regarding the treatment plan was provided. All questions were answered. The patient expressed understanding and agreement with the above treatment plan. The patient is aware they should contact our office by phone for worsening of their current condition or the appearance of new urologic symptoms. Compliance is encouraged with any medications and followup testing that is ordered. It is a privilege to participate in the urologic care of your patient. If you have any questions or concerns regarding treatment for the above conditions, or other urologic issues, please do not hesitate to contact me. The office telephone contact is [phone]. This note is constructed using voice recognition software. While every effort has been made to ensure accuracy neuroscience specialist errors may have been included. Yours sincerely, Dr Vincent Smith MD, [facility] - [facility]rology Providers of Expert, Compassionate Care for the Genitourinary System Coding Level of Care Code Est Pt Level 4 (35178) Diagnoses Overactive bladder N32.81 CPT Codes Cystoscopy - CPT: 66921-[id number] ([id number])
== END 2023-10-29 14:38 | disposition home or self-care (01) ==
PROVIDERS: PCP Internal Medicine; Visit Provider Urology
DX: N40.1 Benign prostatic hyperplasia with lower urinary tract symptoms (principal); Z13.9 Encounter for screening, unspecified
CPT/HCPCS: 52000; 99214

== ENCOUNTER → 2023-10-29 13:46 | Outpatient (BNVA) | payer OTHER, SELFPAY | PROVIDERS: PCP Internal Medicine; Visit Provider Urology | DX: N32.81 Overactive bladder (principal); N40.1 Benign prostatic hyperplasia with lower urinary tract symptoms; R39.15 Urgency of urination; N52.9 Male erectile dysfunction, unspecified | CPT/HCPCS: 52000; 81003; 99212 ==

== ENCOUNTER 2023-12-02 11:00 | Outpatient (AMB) | payer OTHER, SELFPAY ==
[2023-12-02 11:06] VITALS: BP 110/60; PULSE 59; O2SAT 97; BMI 23.3
--- NOTE | 2023-12-02 11:06 | A.OFFVIS_ITS ---
Vital Signs 12/02/23 11:06 Height 5 ft 9 in Weight 158 lb BMI 23.3 BP 110/60 Blood Pressure Location Lt brachial Position Sitting Pulse 59 Pulse Source Pulse Oximeter Pulse Oximetry (%) 97 Oxygen Delivery Method Room Air Intake Visit Reasons: copd Intake Note: pt is here for follow up and has been sick for about 7 months due to diarrhea and nausea, which he states stopped him from using cpap. breathing is comes and goes. 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: No Allergies No Known Allergies [No Known Allergies*] Allergy (Verified 12/02/23 11:20) Medication List - Last Reconciled 12/02/23 by Tish Girard MD acetaminophen 1,000 mg PO Q4-6H PRN albuterol sulfate 90 mcg/actuation (Ventolin HFA) 2 puffs PO Q4-6H PRN alcohol swabs (Alcohol Prep Pads) 1 pad topical TID alum-mag hydroxide-simeth 400-400-40 mg/5 mL (Antacid Plus Anti-Gas) mL PO amlodipine 10 mg PO DAILY aspirin 81 mg PO DAILY atorvastatin 80 mg PO DAILY azelastine 1 spray intranasal BID blood sugar diagnostic (FreeStyle Lite Strips) As directed blood-glucose meter (FreeStyle Standish Lite kit) As directed bupropion HCl XL 300 mg PO DAILY bupropion HCl XL 150 mg PO DAILY cholecalciferol (vitamin D3) 25 mcg PO DAILY fluoxetine 80 mg (2 x 40 mg) PO DAILY furosemide 40 mg PO BID gabapentin 600 mg PO BID ipratropium-albuterol 0.5 mg-3 mg(2.5 mg base)/3 mL 1.5 mL inhalation Q4-6H PRN ketotifen fumarate 0.025%(0.035%) (Alaway) 1 drp ophthalmic (eye) lancets (FreeStyle Lancets) As directed lorazepam 1 mg PO TID PRN metoprolol tartrate 25 mg PO BID multivitamin with folic acid 400 mcg (Daily-Sadi (with folic acid)) 1 tab PO DAILY naltrexone 25 mg PO DAILY prednisone 5 mg PO DAILY PRN quetiapine 50 mg PO DAILY PRN quetiapine 200 mg PO BEDTIME tadalafil 10 mg PO DAILY 90 days tadalafil (pulm. hypertension) 20 mg PO DAILY PRN terazosin 5 mg PO BEDTIME 30 days testosterone 2 pumps topical DAILY 30 days tolterodine ER 2 mg PO DAILY 30 days Trelegy Ellipta 200-62.5-25 mcg (eeqdqpzpuck-gcnjyzgtu-ekwndrbr) 1 ea PO DAILY NS Do you need a note to return to daycare/school/sports/work: No HPI HPI copd: Details: THIS 63 YEARS OLD GENTLEMAN IS HERE FOR HIS ROUTINE FOLLOW-UP. HE CLAIMS THAT HIS BREATHING IS FAIRLY STABLE EXCEPT FOR OCCASIONAL BOUTS OF COUGH. HE HAS HAD. NO ACUTE EXACERBATION FOR HIS CHRONIC RESPIRATORY FAILURE HE IS SUPPOSED TO USE THE BIPAP, BUT HE HAS NOT BEEN ABLE TO USE IT, HE ENDS UP GOING TO THE BATHROOM SEVERAL TIMES DURING THE NIGHT. HE HAS HAD ONGOING CHRONIC DIARRHEA AND IS BEING TREATED BY GASTROENTEROLOGY SERVICE. HE IS STILL SMOKING ABOUT 6 CIGARETTES A DAY. [facility] Medical History Type 2 diabetes mellitus with unspecified complications History of alcohol use Elevated PSA BPH loc w urin obs/LUTS Allergic rhinitis VIRAJ on CPAP COPD (chronic obstructive pulmonary disease) Surgical History History of back surgery History of back surgery Family History Father HTN (hypertension) Social History Household Members: Other Household Members Other:: 2 Rabbits Alcohol intake: former Patient Tobacco Use Status: Current everyday Tobacco user Tobacco use type: Cigarette Cigarettes Per Day: 10 Years Smoked: 30 +/- Review of Systems Const All systems reviewed & are unremarkable except as noted in HPI and below Eyes Reports no additional complaints ENT Reports nasal congestion Card Reports no additional complaints Resp Reports as per HPI GI Reports no additional complaints Reports no additional complaints Musc Reports no additional complaints Skin/Breast Reports system reviewed and no additional complaints, except as documented Neuro Reports no additional complaints Psych Reports no additional complaints Physical Exam Vital Signs: Last Vital Signs Pulse 59 12/02/23 11:06 BP 110/60 12/02/23 11:06 Pulse Ox 97 12/02/23 11:06 Oxygen Delivery Method Room Air 12/02/23 11:06 BMI result Body Mass Index 23.3 Const General: healthy appearing, comfortable, no acute distress, alert and awake Orientation/consciousness: patient oriented x3 HEENT Head: Yes normal to inspection General nose exam: No nasal polyps present and No nasal discharge present Face and sinus: Yes sinuses nontender Mouth: oropharynx normal Throat: Yes posterior oropharynx normal and Yes other (Poor dental hygiene) Eyes General: appearance normal, both eyes and all related structures Neck Neck: Yes normal visual inspection, Yes no lymphadenopathy, No trachea midline (Trach stoma is healed) and Yes no JVD Thyroid: Thyroid normal Chest Chest palpation & inspection: normal inspection of the chest, normal palpation of entire chest wall and no tenderness Resp Other: Percussion note resonant, breath sounds are slightly distant with prolonged expiratory phase. Lungs are mostly clear except for a few scattered wheezes over the basilar areas. Cardio Palpation: normal PMI Rate: regular rate Rhythm: regular rhythm Heart sounds: no gallops and no murmurs Peripheral pulses: Peripheral pulses 2+ throughout GI Palpation (GI): Soft to palpation, nontender, No hepatosplenomegaly present and no masses Auscultation: normal bowel sounds Back/Spine/Pelvis Thoracic/Lumbar Spine: thoracic and lumbar spine normal to inspection Skin General skin exam: no rashes or lesions noted Neuro General: patient oriented x3 and no focal motor deficits Cranial nerves: Yes CN's II-XII intact bilaterally Extrem General: Yes normal to inspection, Yes no clubbing, cyanosis or edema and Yes no calf tenderness Psych Appearance: grossly normal and well kempt Speech and movement: Normal speech and movement present Results Reviewed Results Reviewed: Venous blood gas study on his last visit: PH 7.45, pCO2 45 PO2 42 ( CO2 normalized ) Assessment & Plan Assessment & Plan (1) COPD (chronic obstructive pulmonary disease): Comment: He is a case of advanced chronic obstructive pulmonary disease. Reports having frequent bouts of cough which is secondary to his Continued smoking . I think the lung function is as stable as expected. Code(s): J44.9 - Chronic obstructive pulmonary disease, unspecified Category: Medical Plan: Continue using Trelegy Ellipta 1 inhalation daily Ipratropium-albuterol solution in the nebulizer Q 6 hours p.r.n. when at home ( may use it about twice a day ) Ventolin HFA 2 puffs Q 4-6 hours p.r.n. when outdoors. (2) Allergic rhinitis: Comment: Mild, chronic, controlled . Code(s): J30.9 - Allergic rhinitis, unspecified Category: Medical Plan: Continue usingAzelastin Nasal spray in each nostril b.i.d. (3) Smoking: Comment: He is a long-time smoker, trying to cut down, he is down to 6 cigarettes a day Code(s): F17.200 - Nicotine dependence, unspecified, uncomplicated Category: Social Hx Plan: Again stressed that he needs to quit smoking completely, or at least cut down the number of cigarettes slowly. (4) VIRAJ on CPAP: Comment: He is supposed to use bilevel CPAP( BIPAP ) mostly for his chronic respiratory failure. He has been totally non compliant . I do not think that he will use the BIPAP at all. He does have evidence of significant weight loss so I think he would not have obstructive sleep apnea anymore. The need to use BiPAP is mostly for his chronic respiratory failure. Code(s): G47.33 - Obstructive sleep apnea (adult) (pediatric); Z99.89 - Dependence on other enabling machines and devices Category: Medical Plan: Discussed with him about using the BiPAP and he say is he is going to try again. I asked him if he would like to return the BiPAP apparatus but he wants to keep it at home and try using when he can. Coding Level of Care Code Est Pt Level 3 (65220) Diagnoses COPD (chronic obstructive pulmonary disease) J44.9 Allergic rhinitis J30.9 Smoking F17.200 VIRAJ on CPAP G47.33; Z99.89
== END 2023-12-02 11:27 | disposition home or self-care (01) ==
PROVIDERS: PCP Internal Medicine; Visit Provider Internal Medicine
DX: J44.9 Chronic obstructive pulmonary disease, unspecified (principal); J30.9 Allergic rhinitis, unspecified; F17.200 Nicotine dependence, unspecified, uncomplicated; G47.33 Obstructive sleep apnea (adult) (pediatric); Z99.89 Dependence on other enabling machines and devices
CPT/HCPCS: 99213

== ENCOUNTER → 2023-12-02 11:00 | Outpatient (BNVA) | payer OTHER, SELFPAY | PROVIDERS: PCP Internal Medicine; Visit Provider Internal Medicine | DX: J44.9 Chronic obstructive pulmonary disease, unspecified (principal); J30.9 Allergic rhinitis, unspecified; G47.33 Obstructive sleep apnea (adult) (pediatric); F17.210 Nicotine dependence, cigarettes, uncomplicated; Z99.89 Dependence on other enabling machines and devices | CPT/HCPCS: 99212 ==

== ENCOUNTER 2023-12-17 15:00 | Outpatient (REF) | payer OTHER, SELFPAY ==
[2023-12-17 18:09] LABS: MANUAL DIFF FLAG NO
[2023-12-17 18:17] LABS: Appearance Urine Clear; Color Urine Dark Yellow; Glucose Urine UA Negative (Negative); Leukocyte Esterase Urine Trace (Negative); Nitrite Urine Negative (Negative); PH 5.5 (5.0-9.0); UMIC TRIGGER UA YES; Urine Blood Negative (Negative); Urine Ketones Trace mg/dL (Negative); Urine Protein Negative (Neg-Trace)
[2023-12-17 18:18] LABS: Basophils Absolute Auto 0.1 X10*3/uL (0.0-0.2); Basophils Percent Auto 0.7 % (0-2); Eosinophils Absolute Auto 0.4 X10*3/uL (0.0-0.4); Eosinophils Percent Auto 5.5 % (0-4); Hematocrit 39.8 % (42.0-52.0); Hemoglobin 12.9 g/dl (14.0-18.0); Imm Gran Abs Auto 0.03 X10*3/uL (0.00-0.03); Imm Gran Pct Auto 0.4 % (0.0-0.4); Lymphocytes Absolute Auto 2.2 X10*3/uL (1.2-4.9); Lymphocytes Percent Auto 28.2 % (20-40); Mean Corpuscular HGB Conc 32.4 g/dl (31.0-36.0); Mean Corpuscular Hemoglobin 28.4 pg (27.0-33.0); Mean Corpuscular Volume 87.5 fL (80.0-98.0); Mean Platelet Volume 10.7 fL (9.4-12.4); Monocytes Absolute Auto 0.5 X10*3/uL (0.1-1.2); Monocytes Percent Auto 6.1 % (2-11); Neutrophils Absolute Auto 4.6 x10*3/uL (2.0-8.3); Neutrophils Percent Auto 59.1 % (45-73); Platelet Count 249 X10*3/uL (160-400); Red Blood Count 4.55 X10*6/uL (4.60-5.80); White Blood Count 7.7 X10*3/uL (4.8-10.8)
[2023-12-17 18:29] LABS: Alanine Aminotransferase 14 U/L (0-40); Albumin Level 4.2 g/dL (3.5-5.0); Alkaline Phosphatase 61 U/L (39-117); Anion Gap 13 (12-20); Aspartate Amino Transferase 16 U/L (5-37); Bilirubin Total 0.4 mg/dL (0.0-1.0); Blood Urea Nitrogen 12 mg/dL (9-16); Calcium 9.6 mg/dL (8.4-10.2); Carbon Dioxide 28 mmol/L (22-29); Chloride 102 mmol/L (96-108); Estimated Glomerular Filt Rate 32; Glucose Random 108 mg/dL (60-115); Potassium 4.1 mmol/L (3.3-5.1); Sodium 139 mmol/L (135-145); Total Protein 6.9 g/dL (6.5-8.0); Uric Acid 7.2 mg/dL (3.4-7.0)
[2023-12-17 18:44] LABS: Bacteria Urine None Seen (None Seen); Hyaline Casts Urine >20 /LPF (0-2); RBC Urine 0-2 /HPF (0-2); Squamous Epithelial Cell Urine 0-2 /HPF (0-2); WBC Urine 0-5 /HPF (0-5)
== END 2023-12-17 15:01 | disposition home or self-care (01) ==
LOC: HO.CHCLDS 15:00
PROVIDERS: Visit Provider Internal Medicine
DX: M25.442 Effusion, left hand (principal); M25.461 Effusion, right knee; R60.0 Localized edema
CPT/HCPCS: 36415; 80053; 81001; 84550; 85025

== ENCOUNTER 2023-12-30 09:54 | Outpatient (AMB) | payer OTHER, SELFPAY ==
--- NOTE | 2023-12-30 09:51 | A.OFFVIS_ITS ---
Intake Visit Reasons: 2m follow up-Med Review(Tolterodine) Intake Note: Patient presents today for 2M F/U MED REVIEW Meds: Tadalafil, Testosterone,Tolterodine,Terazosin Allergies to Antibiotic: No Known Allergies Blood Thinner: Aspirin [Patient states he needs refill on tadalafil and request that it be sent to [facility] pharmacy (Cheaper English) Tolterodine patient reports improvement but would like to have a higher dose. Per patient this request is to be sent to [facility] [employer] Insurance Agent Required: No Allergies No Known Allergies [No Known Allergies*] Allergy (Verified 12/30/23 09:52) HPI Comments Details: Po is a pleasant male. He is seen for the following urologic conditions - lower urinary tract symptoms - erectile dysfunction - hypogonadism - bladder instability Has noticed benefit with tolterodine Would like to increase dosage 4 mg provided Prior Cystoscopy with open bladder neck from prior procedure With bladder instability Testosterone refilled Baseline memory issues so not candidate for oxybutynin Hypogonadism Initial symptoms Feels that he is decreased energy, Lack of libido Laboratories 03/27 T 128, 04/27 201, 11/26 792 1.9, 04/28 362 1.7, 11/27 430 1.3 Testosterone replacement with gel Improved symptoms with energy on testosterone Erectile dysfunction Longstanding progressive Partial response to daily 10 mg Increased to 20 mg on demand Lower urine tract symptoms Laser procedure performed number of years ago Feels he is doing well with emptying Adequate stream maintained No current medications PSA 02/25 2.0 Social note patient's son at age 21 2017 years ago from a heroin overdose at [facility] Medical History Type 2 diabetes mellitus with unspecified complications History of alcohol use Elevated PSA BPH loc w urin obs/LUTS Allergic rhinitis VIRAJ on CPAP COPD (chronic obstructive pulmonary disease) Surgical History History of back surgery History of back surgery Family History Father HTN (hypertension) Social History Household Members: Other Household Members Other:: 2 Rabbits Alcohol intake: former Patient Tobacco Use Status: Current everyday Tobacco user Tobacco use type: Cigarette Cigarettes Per Day: 10 Years Smoked: 30 +/- Review of Systems Const Denies chills and Denies fever(s) Card Reports no additional complaints and Denies syncope Resp Denies cough GI Denies abdominal pain and Denies heartburn Reports as per HPI and Denies change in libido Neuro Denies syncope Psych Denies change in libido Endo Denies change in libido Physical Exam Const General: cooperative, healthy appearing, comfortable and no acute distress Orientation/consciousness: patient oriented x3 HEENT Face and sinus: Yes normal facial exam Mouth: moist mucous membranes Neck Neck: Yes normal visual inspection, Yes full ROM and Yes trachea midline Chest Chest palpation & inspection: normal inspection of the chest Resp Effort & Inspection: normal respiratory effort, able to speak in complete sentences and no respiratory distress GI Inspection: Yes normal to inspection Back/Spine/Pelvis Cervical Spine: normal cervical lordosis Thoracic/Lumbar Spine: thoracic and lumbar spine normal to inspection Skin General skin exam: no rashes or lesions noted Neuro General: patient oriented x3, gait normal, tone normal and moves all extremities Extrem General: Yes normal to inspection and Yes capillary refill normal Assessment & Plan Assessment & Plan (1) Overactive bladder: Code(s): N32.81 - Overactive bladder Category: Medical (2) Hypogonadism in male: Code(s): E29.1 - Testicular hypofunction Category: Medical (3) BPH loc w urin obs/LUTS: Code(s): N40.1 - Benign prostatic hyperplasia with lower urinary tract symptoms Category: Medical Plan Restart testosterone Increase tolterodine 4 mg Six-month follow-up lab work Orders: Orders Complete Blood Count no Diff 6 Months E29.1 - Testicular hypofunction Testosterone, Total 6 Months E29.1 - Testicular hypofunction Prostate Specific Antigen 6 Months E29.1 - Testicular hypofunction Medications: Changed From tolterodine ER 2 mg PO DAILY 30 days 30 caps 1RF N32.81 - Overactive bladder, R39.15 - Urgency of urination To tolterodine ER 4 mg PO DAILY 90 caps 1RF 90 days N32.81 - Overactive bladder, R39.15 - Urgency of urination Refilled testosterone apply 2 pumps over max area - alternate shoulders on alternate days 2 pumps topical DAILY 75 grams 5RF 30 days E29.1 - Testicular hypofunction tadalafil Daily medication 10 mg PO DAILY 90 tabs 1RF sexual activity 90 days N52.9 - Male erectile dysfunction, unspecified Discontinued tadalafil (pulm. hypertension) administer approximately 30min before sexual activity; do not use more than 1 dose per 24hrs Discontinued Reason: Patient Completed Course 20 mg PO DAILY PRN 90 tabs 1RF sexual activity E29.1 - Testicular hypofunction testosterone apply 2 pumps over max area - alternate shoulders on alternate days Discontinued Reason: Patient Completed Course 2 pumps topical DAILY 30 days 75 grams 5RF E29.1 - Testicular hypofunction terazosin Discontinued Reason: Patient Completed Course 5 mg PO BEDTIME 30 days 30 caps 1RF N40.1 - Benign prostatic hyperplasia with lower urinary tract symptoms, R35.0 - Frequency of micturition Patient Instructions: Imaging studies, laboratory and physical exam results were discussed and reviewed in detail. No major barriers to patient understanding were identified. An opportunity to ask questions regarding the treatment plan was provided. All questions were answered. The patient expressed understanding and agreement with the above treatment plan. The patient is aware they should contact our office by phone for worsening of their current condition or the appearance of new urologic symptoms. Compliance is encouraged with any medications and followup testing that is ordered. It is a privilege to participate in the urologic care of your patient. If you have any questions or concerns regarding treatment for the above conditions, or other urologic issues, please do not hesitate to contact me. The office telephone contact is [phone]. This note is constructed using voice recognition software. While every effort has been made to ensure accuracy rural carrier associate errors may have been included. Yours sincerely, Dr Vincent Smith MD, [facility] - Urology Providers of Expert, Compassionate Care for the Genitourinary System Coding Level of Care Code Est Pt Level 4 (21868) Complex EM visit Add On G2211 Diagnoses Overactive bladder N32.81 Hypogonadism in male E29.1 BPH loc w urin obs/LUTS N40.1
== END 2023-12-30 10:59 | disposition home or self-care (01) ==
PROVIDERS: PCP Internal Medicine; Visit Provider Urology
DX: N32.81 Overactive bladder (principal); E29.1 Testicular hypofunction; N40.1 Benign prostatic hyperplasia with lower urinary tract symptoms
CPT/HCPCS: 99214; G2211

== ENCOUNTER → 2023-12-30 09:54 | Outpatient (BNVA) | payer OTHER, SELFPAY | PROVIDERS: PCP Internal Medicine; Visit Provider Urology | DX: N40.1 Benign prostatic hyperplasia with lower urinary tract symptoms (principal); N13.8 Other obstructive and reflux uropathy; E29.1 Testicular hypofunction; N32.81 Overactive bladder | CPT/HCPCS: 99212 ==

== ENCOUNTER 2024-01-15 10:57 | Observation (INO) | payer OTHER, SELFPAY ==
[2024-01-15] VITALS (10 sets, daily range): BP systolic 110–157; BP diastolic 77–97; PULSE 77–96; RESP 12–19; TEMP 36.5–37.2; O2SAT 93–100; BMI 23.8
--- NOTE | 2024-01-15 11:11 | ED.NAVMDI ---
HPI - Nausea/Vomiting/Diarrhea General Chief complaint: Abdominal Pain Stated complaint: ABD PAIN X 3 DAYS,DIZZY PER EMS Source: patient, EMS and old records reviewed Mode of arrival: EMS Limitations: no limitations History of Present Illness ED Provider: LUDIVINA HPI Narrative: 63 yo male with PMH of abdominal migraines treated with morphine at [facility], BPH, asthma, GERD, leg edema, HTN, DM, prior ETOH abuse reports no use in 1 year presents with typical abdominal cramps, n/v and diarrhea x 3 days. States he gets this a lot with his abdominal migraines. Denies sick contacts, travel, food exposures, antibiotic use. He denies any recent relapse. States he does take a diuretic and has been taking it while dehydrated. MD elicited complaint: nausea, vomiting, diarrhea and abdominal pain Pertinent past history: other Onset (ago): day(s) (3) Description of vomiting: watery Description of diarrhea: watery Associated nausea: Yes Associated abdominal pain: Yes Location of pain: diffuse Radiation: diffuse Pain consistency: constant Severity: moderate Quality: cramping Exacerbating factors: eating and movement Relieving factors: none Context: other (hx of similar episodes) Associated symptoms: loss of appetite, malaise, nausea/vomiting and weakness Related Data Home Medications ?Medication ?Instructions ?Recorded ?Confirmed aspirin 81 mg tablet,delayed 81 mg PO DAILY 09/02/20 08/19/23 release atorvastatin 80 mg tablet 80 mg PO DAILY 09/02/20 08/19/23 bupropion HCl 300 mg 24 hr tablet, 300 mg PO DAILY 09/02/20 08/19/23 extended release cholecalciferol (vitamin D3) 25 25 mcg PO DAILY 09/02/20 08/19/23 mcg (1,000 unit) tablet ketotifen fumarate 0.025 % (0.035 1 drp ophthalmic (eye) 03/28/21 08/19/23 %) eye drops ([place]) lorazepam 1 mg tablet 1 mg PO TID PRN Anxiety 03/28/21 08/19/23 bupropion HCl 150 mg 24 hr tablet, 150 mg PO DAILY 08/25/21 08/19/23 extended release multivitamin with folic acid 400 1 tab PO DAILY 11/05/21 08/19/23 mcg tablet (Daily-Sadi (with folic acid)) quetiapine 100 mg tablet 200 mg PO BEDTIME 11/05/21 08/19/23 acetaminophen 500 mg tablet 1,000 mg PO Q4-6H PRN Pain 11/18/21 08/19/23 aluminum-mag hydroxide-simethicone ml PO 11/18/21 08/19/23 400 mg-400 mg-40 mg/5 mL oral susp (Antacid Plus Anti-Gas) furosemide 40 mg tablet 40 mg PO BID 02/19/22 08/19/23 naltrexone 50 mg tablet 25 mg PO DAILY 02/19/22 08/19/23 quetiapine 50 mg tablet 50 mg PO DAILY PRN Anxiety 02/19/22 08/19/23 alcohol swabs (Alcohol Prep Pads) 1 pad topical TID 05/19/22 08/19/23 amlodipine 10 mg tablet 10 mg PO DAILY 05/19/22 08/19/23 blood sugar diagnostic (FreeStyle #10 ea 05/19/22 08/19/23 Lite Strips) blood-glucose meter (FreeStyle #1 ea 05/19/22 08/19/23 [place] Lite kit) lancets 28 gauge (FreeStyle #100 ea 05/19/22 08/19/23 Lancets) gabapentin 600 mg tablet 600 mg PO BID 06/18/22 08/19/23 Previous Rx's ?Medication ?Instructions ?Recorded fluoxetine 40 mg capsule 80 mg (2 x 40 mg) PO DAILY #60 caps 09/14/22 prednisone 5 mg tablet 5 mg PO DAILY PRN shortness of 01/20/23 breath or wheezing #30 tabs ipratropium 0.5 mg-albuterol 3 mg 1.5 ml inhalation Q4-6H PRN for 02/15/23 (2.5 mg base)/3 mL nebulization wheezing #180 mL soln metoprolol tartrate 25 mg tablet 25 mg PO BID #180 tabs 06/23/23 azelastine 137 mcg (0.1 %) nasal 1 spray intranasal BID #90 mL 10/29/23 spray albuterol sulfate 90 mcg/actuation 2 puff PO Q4-6H PRN for wheezing 11/23/23 aerosol inhaler (Ventolin HFA) #18 ea Trelegy Ellipta 200 mcg-62.5 1 ea PO DAILY #60 ea 12/10/23 mcg-25 mcg powder for inhalation (xlaweovlcxx-fieyfjfua-ofqbnoyu) tadalafil 10 mg tablet 10 mg PO DAILY sexual activity 90 12/30/23 days #90 tabs testosterone 2 pump topical DAILY 30 days #75 12/30/23 grams tolterodine 4 mg capsule,extended 4 mg PO DAILY 90 days #90 caps 12/30/23 release 24 hr tadalafil (pulm. hypertension) 20 20 mg PO ONCE PRN sexual activity 12/31/23 mg tablet (pulmonary hypertension) #90 tabs Allergies Allergy/AdvReac Type Severity Reaction Status Date / Time No Known Allergies Allergy Verified 01/15/24 11:09 [No Known Allergies*] Review of Systems Review of Systems: Constitutional : No Weight loss, No Fever, No Chills ENT/Mouth : No sore throat, No Rhinorrhea Eyes: No Swelling, No Redness Cardiovascular : No Chest Pain, No SOB, NoEdema Respiratory : No Cough, No Sputum, No Wheezing Gastrointestinal : Positive Nausea, Positive Vomiting, positive Diarrhea, positive abdominal Pain, No Hematochezia, No Melena Genitourinary : No Dysuria, No Urinary Frequency, No Hematuria, No Urgency Musculoskeletal : No joint pain, No Myalgias, No Joint Swelling Skin : No Skin Lesions, No rash Neuro : pos Weakness, No Numbness, No Dizziness, No Headache All other systems reviewed and are negative. Gastrointestinal: Gastrointestinal: Reports nausea PMFSH Past Medical History Attestation statement: The following information was validated with the patient. Source: old records reviewed Medical History Type 2 diabetes mellitus with unspecified complications History of alcohol use Elevated PSA BPH loc w urin obs/LUTS Allergic rhinitis VIRAJ on CPAP COPD (chronic obstructive pulmonary disease) Surgical History History of back surgery History of back surgery Family History Family History Father HTN (hypertension) Social History Social History Household Members: Other Household Members Other:: 2 Rabbits Alcohol intake: former Patient Tobacco Use Status: Current everyday Tobacco user Tobacco use type: Cigarette Cigarettes Per Day: 10 Years Smoked: 30 +/- Smoked in Last 30 Days: Yes Use of substances other than those prescribed or required for medical reasons: No Advance Directives: Yes Advance Directives Information Provided: Yes Advance Directives on File: No Do you have a plan to hurt others: No Plan Physical Exam Vital Signs: Vital Signs: Last Vital Signs Temp 98.2 F 01/15/24 14:22 Pulse 85 01/15/24 14:22 Resp 12 01/15/24 14:22 BP 124/90 H 01/15/24 14:22 Pulse Ox 96 01/15/24 14:22 O2 Del Method Room Air 01/15/24 14:22 BMI result Body Mass Index 23.8 Appearance: Alert. Oriented X3. No acute distress. shaking with mild tremors Eyes: Pupils equal, round and reactive to light. ENT: Pharynx mildly dry MM Neck: Normal inspection. Neck supple. CVS: Normal heart rate and rhythm. Pulses normal. Respiratory: No respiratory distress. Breath sounds normal. Abdomen: Soft and mild diffuse ttp no rebound or guarding Skin: Skin warm and dry. Normal skin color. Normal skin turgor. Extremities: No lower extremity edema. No calf ttp Neuro: Oriented X 3. No motor deficit. No sensory deficit. Course Course Course Narrative: still vomiting after reglan benadryl and ativan added on droperidol will admit for further treatment Medications Administered Discontinued Medications Generic Name Dose Route Start Last Admin Trade Name Tierney PRN Reason Stop Dose Admin Diphenhydramine HCl 25 mg 01/15/24 11:15 01/15/24 11:49 Diphenhydramine Hcl 50 Mg/Ml Vial IVPUSH 01/15/24 11:16 25 mg ONCE ONE Administration Magnesium Sulfate 2 gm in 50 mls @ 25 mls/hr 01/15/24 11:15 01/15/24 13:52 Magnesium Sulfate/H2o IV 01/15/24 13:14 Infused ONCE ONE Infusion Potassium Chloride 10 meq in 100 mls @ 100 mls/hr 01/15/24 12:30 01/15/24 14:31 Potassium Chloride/H20 IV 01/15/24 14:29 100 mls/hr Q1H SONJA Administration Lorazepam 1 mg 01/15/24 11:15 01/15/24 11:51 Lorazepam 2 Mg/Ml Vial IVPUSH 01/15/24 11:16 1 mg STAT STA Administration Metoclopramide HCl 10 mg 01/15/24 11:15 01/15/24 11:51 Metoclopramide Hcl 10 Mg/2 Ml Vial IVPUSH 01/15/24 11:16 10 mg ONCE ONE Administration Medical Decision Making Medical Decision Making [facility] Narrative: 63 yo male with PMH of abdominal migraines treated with morphine at [facility], BPH, asthma, GERD, leg edema, HTN, DM, prior ETOH abuse here n/v/d abdominal pain x 3 days he appears shaky with tremors denies ETOH use for 1 year or illicit drug use at this time he reports this is typical of his abdominal migraines - will obtain labs, hydrate, start on IVF, anti nausea medications/magnesium. No localized ttp if he has stool sample will test it here. Differential Diagnosis Differential Diagnoses: The differential diagnosis associated with the presentation includes gastritis, dehydration, ETOH withdrawal, viral syndrome Admission/Observation Consideration of admission/observation: Escalation of care including admission/observation considered vomiting again - repeat nausea and vomiting medications will admit for further workup Consult Healthcare Provider Management of the patient was discussed with: Hospitalist (will admit) Lab Data [facility] Lab Attestation statement: I reviewed the patient's lab results. 01/15/24 11:43 01/15/24 11:43 Labs: Lab Results 01/15/24 Range/Units 11:43 WBC 11.4 H (4.8-10.8) X10*3/uL RBC 5.98 H D (4.60-5.80) X10*6/uL Hgb 16.8 D (14.0-18.0) g/dl Hct 49.2 D (42.0-52.0) % MCV 82.3 (80.0-98.0) fL MCH 28.1 (27.0-33.0) pg MCHC 34.1 (31.0-36.0) g/dl RDW 14.0 (11.0-16.0) % Plt Count 282 (160-400) X10*3/uL MPV 9.5 (9.4-12.4) fL Immature Gran % (Auto) 0.4 (0.0-0.4) % Neut % (Auto) 80.9 H (45-73) % Lymph % (Auto) 12.5 L (20-40) % [place] % (Auto) 5.2 (2-11) % Eos % (Auto) 0.6 (0-4) % Baso % (Auto) 0.4 (0-2) % Lymph # (Auto) 1.4 (1.2-4.9) X10*3/uL [place] # (Auto) 0.6 (0.1-1.2) X10*3/uL Eos # (Auto) 0.1 (0.0-0.4) X10*3/uL Baso # (Auto) 0.1 (0.0-0.2) X10*3/uL Abs Immat Gran (auto) 0.04 H (0.00-0.03) X10*3/uL Absolute Neuts (auto) 9.2 H (2.0-8.3) x10*3/uL Absolute Nucleated RBC 0.000 (0.0-0.012) X10*3/uL Nucleated RBC % (auto) 0.0 (0.0-0.2) /100WBC Sodium 139 (135-145) mmol/L Potassium 3.2 L D (3.3-5.1) mmol/L Chloride 105 (96-108) mmol/L Carbon Dioxide 21 L (22-29) mmol/L Anion Gap 16 (12-20) BUN 15 (9-16) mg/dL Creatinine 1.96 H (0.5-1.4) mg/dL Estim Creat Clear Calc 39.0 Estimated GFR 35 Random Glucose 135 H (60-115) mg/dL Calcium 10.8 H D (8.4-10.2) mg/dL Magnesium 2.3 (1.6-2.6) mg/dL Total Bilirubin 0.6 (0.0-1.0) mg/dL Direct Bilirubin 0.2 (0.0-0.5) mg/dL AST 26 (5-37) U/L ALT 19 (0-40) U/L Alkaline Phosphatase 69 (39-117) U/L Troponin I High Sens 4.3 (<3.5-35.0) ng/L Total Protein 7.7 (6.5-8.0) g/dL Albumin 4.6 (3.5-5.0) g/dL Lipase 64 (8-78) U/L Ethyl Alcohol < 10 mg/dL Independent Interpretation I performed an independent interpretation of an: EKG Interpretation: Rate: 78 Rhythm: NSR with PVCs [place]: normal Normal P waves. Normal RICHY. Normal QRS complex. ST T wave : inverted t wave V1 - V6 qTC: 405 prior studies: noted on stress 2021 The study has been interpreted contemporaneously by me. EKG #2 Rate: 84 Rhythm: NSR [place]: normal Normal P waves. Normal RICHY. Normal QRS complex. ST T wave : nonspecific ST T wave changes ant lateral leads no SE[place] qTC: 420 prior studies: The study has been interpreted contemporaneously by me. . Independent Historian Clinical information obtained from an independent historian. History obtained from or confirmed by: EMS External Record Review External record reviewed: Inpatient record Critical Care Time Critical Care Time Critical Care Time: Yes Total Critical Care Time: 45 Attestation: IV potassium, repeat IV nausea medications, repeat EKG, review of records I attest to this time spent taking care of the patient Discharge Plan Discharge Clinical Impression: Intractable nausea and vomiting, Acute hypokalemia, Nonspecific ST-T wave electrocardiographic changes Patient Disposition: Admitted As Inpatient Print Language: Hungarian
--- NOTE | 2024-01-15 11:15 | ECG_ITS ---
Test Reason : weakness Blood Pressure : / mmHG Vent. Rate : 078 BPM Atrial Rate : 085 BPM P-R Int : 210 ms QRS Dur : 080 ms QT Int : 356 ms P-R-T Axes : 057 053 018 degrees QTc Int : 405 ms Sinus rhythm with marked sinus arrhythmia with 1st degree A-V block with occasional Premature ventricular complexes ST & T wave abnormality, consider anterolateral ischemia Abnormal ECG No previous ECGs available Referred By: Marla Ledbetter Electronically Signed By:GUERA EDDY MD
[2024-01-15 11:46] LABS: MANUAL DIFF FLAG NO
[2024-01-15 11:48] LABS: Basophils Absolute Auto 0.1 X10*3/uL (0.0-0.2); Basophils Percent Auto 0.4 % (0-2); Eosinophils Absolute Auto 0.1 X10*3/uL (0.0-0.4); Eosinophils Percent Auto 0.6 % (0-4); Hematocrit 49.2 % (42.0-52.0); Hemoglobin 16.8 g/dl (14.0-18.0); Imm Gran Abs Auto 0.04 X10*3/uL (0.00-0.03); Imm Gran Pct Auto 0.4 % (0.0-0.4); Lymphocytes Absolute Auto 1.4 X10*3/uL (1.2-4.9); Lymphocytes Percent Auto 12.5 % (20-40); Mean Corpuscular HGB Conc 34.1 g/dl (31.0-36.0); Mean Corpuscular Hemoglobin 28.1 pg (27.0-33.0); Mean Corpuscular Volume 82.3 fL (80.0-98.0); Mean Platelet Volume 9.5 fL (9.4-12.4); Monocytes Absolute Auto 0.6 X10*3/uL (0.1-1.2); Monocytes Percent Auto 5.2 % (2-11); Neutrophils Absolute Auto 9.2 x10*3/uL (2.0-8.3); Neutrophils Percent Auto 80.9 % (45-73); Platelet Count 282 X10*3/uL (160-400); Red Blood Count 5.98 X10*6/uL (4.60-5.80); White Blood Count 11.4 X10*3/uL (4.8-10.8)
[2024-01-15] MEDS: diphenhydrAMINE HCL 50 MG/ML VIAL 25 MG IVPUSH (11:49)
[2024-01-15] MEDS: Metoclopramide HCl 10 MG/2 ML VIAL IVPUSH (11:51)
[2024-01-15] MEDS: LORazepam 2 MG/ML VIAL 1 MG IVPUSH (11:51)
[2024-01-15 12:02] LABS: Ethanol < 10 mg/dL
--- NOTE | 2024-01-15 12:02 | PC.NURSE ---
Pt presents to ED with c/o nausea and diarrhea x3+ days. States he is dehydrated and has 8/10 cramping in his abd. States he has been seen at [facility] for this about 3 additional times. VSS, afebrile, and A&Ox3 20g in R hand. Pt medicated per AUG. Pt is currently resting comfortably.
[2024-01-15 12:03] LABS: Alanine Aminotransferase 19 U/L (0-40); Albumin Level 4.6 g/dL (3.5-5.0); Alkaline Phosphatase 69 U/L (39-117); Anion Gap 16 (12-20); Aspartate Amino Transferase 26 U/L (5-37); Bilirubin Direct 0.2 mg/dL (0.0-0.5); Bilirubin Total 0.6 mg/dL (0.0-1.0); Blood Urea Nitrogen 15 mg/dL (9-16); Calcium 10.8 mg/dL (8.4-10.2); Carbon Dioxide 21 mmol/L (22-29); Chloride 105 mmol/L (96-108); Estimated Glomerular Filt Rate 35; Glucose Random 135 mg/dL (60-115); Lipase 64 U/L (8-78); Magnesium 2.3 mg/dL (1.6-2.6); Potassium 3.2 mmol/L (3.3-5.1); Sodium 139 mmol/L (135-145); Total Protein 7.7 g/dL (6.5-8.0)
[2024-01-15] MEDS: Magnesium Sulfate/H2O 2 GM/50 ML PIGGYBACK IV (12:22)
[2024-01-15 12:35] LABS: Troponin-I High Sensitivity 4.3 ng/L (<3.5-35.0)
[2024-01-15] MEDS: Potassium Chloride/H20 10 MEQ/100 ML PIGGYBACK 100 MEQ IV ×2 (13:15→14:31)
--- NOTE | 2024-01-15 14:12 | ECG_ITS ---
Test Reason : hypokalemia Blood Pressure : / mmHG Vent. Rate : 084 BPM Atrial Rate : 084 BPM P-R Int : 198 ms QRS Dur : 084 ms QT Int : 356 ms P-R-T Axes : 059 037 -30 degrees QTc Int : 420 ms Sinus rhythm with occasional Premature ventricular complexes ST & T wave abnormality, consider inferior ischemia ST & T wave abnormality, consider anterior ischemia Abnormal ECG When compared with ECG of 15-JAN-2024 11:51, No significant change was found Referred By: Marla Ledbetter Electronically Signed By:GUERA EDDY MD
[2024-01-15 15:26] LABS: Appearance Urine Clear; Color Urine Dark Yellow; Glucose Urine UA Negative (Negative); Leukocyte Esterase Urine Trace (Negative); Nitrite Urine Negative (Negative); PH 6.5 (5.0-9.0); Specific Gravity - Urine 1.025 (1.005-1.025); UMIC TRIGGER UACC YES; Urine Blood Negative (Negative); Urine Ketones Trace mg/dL (Negative); Urine Protein Trace mg/dL (Neg-Trace)
[2024-01-15 15:34] LABS: Amphetamine Screen Urine Not Detected (Not Detect); Barbiturates, Urine Not Detected (Not Detect); Benzodiazepines Screen Urine Not Detected (Not Detect); Buprenorphine Scr Not Detected (Not Detect); Cannabinoid Screen Urine Not Detected (Not Detect); Cocaine Screen Urine Not Detected (Not Detect); Fentanyl, urine Not Detected (Not Detect); Methadone Screen, Urine Not Detected (Not Detect); Opiate Screen Urine Not Detected (Not Detect); Oxycodone Screen Urine Not Detected (Not Detect); Phencyclidine Screen Urine Not Detected (Not Detect)
[2024-01-15] MEDS: 0.9 % Sodium Chloride 1,000 ML 100 ML IVCONT (15:45)
[2024-01-15] MEDS: droPERidol 5 MG/2 ML VIAL 1.25 MG IVPUSH (16:05)
--- NOTE | 2024-01-15 16:21 | P.HPHOSP_ITS ---
History of Present Illness Date of Service: 01/15/24 Attending physician on admission: India Blake Chief Complaint: Nausea vomiting intractable 63-year-old male with past medical history of alcohol withdrawal seizure, BPH, hypertension, hyperlipidemia, hypokalemia, VIRAJ on CPAP, possible paroxysmal AFib, BPH, chronic back pain had spinal stimulator-he says he came to the hospital because he is having 2 -3 days history of intractable nausea vomiting unable to eat, feeling dehydrated-so decided to come to the hospital. He denies any abdominal pain except some epigastric discomfort after vomiting, no diarrhea. Patient says that he has these episodes on and off from long time and correlate'' abdominal migraine''. received multiple meds for nausea ,vomiting -did not response ,so admitted for supportive care ,observation and Gi eval. Lab imaging reviewed: Mild hypokalemia of 3.2, EKG seems similar to 2021 Urine drug screen pending Denies any new complaint of chest pain or shortness of breath or fever or chills or diarrhae Denies any cough Denies any weakness or numbness. Patient denies any alcohol use or any recreation drug use or recent travel or any antibiotic use or any sick contacts. Patient received Reglan, Ativan, IV fluids in the ED-admission requested for intractable nausea vomiting Review of Systems 2 Review of Systems: As above. [facility] Medical History Type 2 diabetes mellitus with unspecified complications History of alcohol use Elevated PSA BPH loc w urin obs/LUTS Allergic rhinitis VIRAJ on CPAP COPD (chronic obstructive pulmonary disease) Family History Father HTN (hypertension) Surgical History History of back surgery History of back surgery Social History Household Members: Other Household Members Other:: 2 Rabbits Alcohol intake: former Patient Tobacco Use Status: Current everyday Tobacco user Tobacco use type: Cigarette Cigarettes Per Day: 10 Years Smoked: 30 +/- Smoked in Last 30 Days: Yes Use of substances other than those prescribed or required for medical reasons: No Advance Directives: Yes Advance Directives Information Provided: Yes Advance Directives on File: No Do you have a plan to hurt others: No Plan Meds Allergies Allergy/AdvReac Type Severity Reaction Status Date / Time No Known Allergies Allergy Verified 01/15/24 11:09 [No Known Allergies*] Active Medications: Current Medications Acetaminophen (Acetaminophen 325 Mg Tablet) 650 mg PO Q6H PRN PRN Reason: Pain, Mild (Pain Scale 1-3), fever or headache Calcium Carbonate (Calcium Carbonate 750 Mg Tab.Chew) 750 mg PO Q4H PRN PRN Reason: Heartburn Enoxaparin Sodium (Enoxaparin Sodium 40 Mg/0.4 Ml Syringe) 40 mg SUBCUT Q24H SONJA Potassium Chloride (Potassium Chloride/H20) 10 meq in 100 mls @ 100 mls/hr IV Q1H SONJA Stop: 01/15/24 18:29 Lactated Ringer's (Lr) 1,000 mls @ 100 mls/hr IVCONT .Q10H SNOJA Magnesium Hydroxide (Milk Of Magnesia 30 Ml Oral.Susp) 30 ml PO DAILY PRN PRN Reason: Constipation Melatonin (Melatonin 3 Mg Tablet) 6 mg PO BEDTIME PRN PRN Reason: Insomnia Ondansetron HCl (Ondansetron Hcl 4 Mg/2 Ml Vial) 4 mg IVPUSH Q8H PRN PRN Reason: nausea /vomitin Pantoprazole Sodium (Pantoprazole Sodium 40 Mg/10 Ml Vial) 40 mg IVPUSH BID SONJA Sodium Chloride (0.9 % Sodium Chloride Flush 3 Ml Syringe) 3 ml IVFLUSH QSHIFT [facility] Home Medications ?Medication ?Instructions ?Recorded ?Confirmed ?Last Taken ?Type aspirin 81 mg tablet,delayed 81 mg PO DAILY 09/02/20 08/19/23 09/08/22 06:00 History release atorvastatin 80 mg tablet 80 mg PO DAILY 09/02/20 08/19/23 09/08/22 06:00 History bupropion HCl 300 mg 24 hr tablet, 300 mg PO DAILY 09/02/20 08/19/23 09/08/22 06:00 History extended release cholecalciferol (vitamin D3) 25 25 mcg PO DAILY 09/02/20 08/19/23 09/08/22 06:00 History mcg (1,000 unit) tablet lorazepam 1 mg tablet 1 mg PO TID PRN Anxiety 03/28/21 08/19/23 Unknown History bupropion HCl 150 mg 24 hr tablet, 150 mg PO DAILY 08/25/21 08/19/23 09/08/22 06:00 History extended release multivitamin with folic acid 400 1 tab PO DAILY 11/05/21 08/19/23 09/08/22 06:00 History mcg tablet (Daily-Sadi (with folic acid)) quetiapine 100 mg tablet 200 mg PO BEDTIME 11/05/21 08/19/23 09/07/22 22:00 History acetaminophen 500 mg tablet 1,000 mg PO Q4-6H PRN Pain 11/18/21 08/19/23 Unknown History naltrexone 50 mg tablet 25 mg PO DAILY 02/19/22 08/19/23 09/08/22 06:00 History quetiapine 50 mg tablet 50 mg PO DAILY PRN Anxiety 02/19/22 08/19/23 09/08/22 06:00 History amlodipine 10 mg tablet 10 mg PO DAILY 05/19/22 08/19/23 09/08/22 06:00 History blood sugar diagnostic (FreeStyle #10 ea 05/19/22 08/19/23 Unknown History Lite Strips) blood-glucose meter (FreeStyle #1 ea 05/19/22 08/19/23 Unknown History [place] Lite kit) lancets 28 gauge (FreeStyle #100 ea 05/19/22 08/19/23 Unknown History Lancets) gabapentin 600 mg tablet 600 mg PO BID 06/18/22 08/19/23 09/08/22 06:00 History aripiprazole 5 mg tablet 5 mg PO DAILY 01/15/24 Unknown History dicyclomine 10 mg capsule 10 mg PO QID 01/15/24 Unknown History fluoxetine 20 mg capsule 20 mg PO DAILY 01/15/24 Unknown History fluoxetine 40 mg capsule 40 mg PO DAILY 01/15/24 Unknown History hydroxyzine HCl 25 mg tablet 25 mg PO DAILY 01/15/24 Unknown History hydroxyzine HCl 25 mg tablet 25 mg PO DAILY 01/15/24 Unknown History zqmlrr-pnqfmprf-uzdesxe cap PO 01/15/24 Unknown History 24,000-76,000-120,000 unit capsule,delayed rel (Creon) rohsik-yfsymehg-eewnijj 1 cap PO TID 01/15/24 Unknown History 36,000-114,000-180,000 unit capsule,delay rel (Creon) loperamide 2 mg capsule 2 mg PO QID PRN Diarrhea 01/15/24 Unknown History ondansetron 4 mg disintegrating 4 mg PO Q8H PRN Nausea And Vomiting 01/15/24 Unknown History tablet tizanidine 2 mg tablet 2 mg PO Q8H PRN muscle spasm 01/15/24 Unknown History trazodone 50 mg tablet 50 mg PO BEDTIME 01/15/24 Unknown History Physical Exam 2 Vital Signs and Narrative: Vital Signs: Last Vital Signs Temp 98.2 F 01/15/24 14:22 Pulse 85 01/15/24 16:07 Resp 17 01/15/24 16:07 BP 112/77 01/15/24 16:07 Pulse Ox 95 01/15/24 16:07 O2 Del Method Room Air 01/15/24 16:07 BMI result Body Mass Index 23.8 Appearance: Alert.? Oriented X3.? not in distress.? Eyes: Pupils equal, round and reactive to light.? Sclera nonicteric.? ENT: Pharynx normal.? mucous membranes-dry. cvs: rrr, [id number]. res: clear to auscultation ,no rhonchii or wheezing abd: no rebound or guarding ,minimum epigastric dicomfort, bs present. ext pulses present , no cyanosis . neuro: axo3 , nonfocal. Results Labs 01/15/24 11:43 01/15/24 11:43 Labs: Laboratory Results - last 24 hr 01/15/24 01/15/24 11:43 15:15 MCV 82.3 MCH 28.1 MCHC 34.1 RDW 14.0 Plt Count 282 MPV 9.5 Immature Gran % (Auto) 0.4 Neut % (Auto) 80.9 H Lymph % (Auto) 12.5 L [place] % (Auto) 5.2 Eos % (Auto) 0.6 Baso % (Auto) 0.4 Lymph # (Auto) 1.4 [place] # (Auto) 0.6 Eos # (Auto) 0.1 Baso # (Auto) 0.1 Abs Immat Gran (auto) 0.04 H Absolute Neuts (auto) 9.2 H Absolute Nucleated RBC 0.000 Nucleated RBC % (auto) 0.0 Anion Gap 16 Estim Creat Clear Calc 39.0 Estimated GFR 35 Random Glucose 135 H Calcium 10.8 H D Magnesium 2.3 Total Bilirubin 0.6 Direct Bilirubin 0.2 AST 26 ALT 19 Alkaline Phosphatase 69 Troponin I High Sens 4.3 Total Protein 7.7 Albumin 4.6 Lipase 64 Urine Color Dark Yellow Urine Appearance Clear Urine pH 6.5 Ur Specific [place] 1.025 Urine Protein Trace Urine Glucose (UA) Negative Urine Ketones Trace Urine Blood Negative Urine Nitrite Negative Ur Leukocyte Esterase Trace H Urine Opiates Screen Not Detected Ur Buprenorphine Scrn Not Detected Ur Oxycodone Screen Not Detected Urine Methadone Screen Not Detected Urine Fentanyl Screen Not Detected Ur Barbiturates Screen Not Detected Ur Phencyclidine Scrn Not Detected Ur Amphetamines Screen Not Detected U Benzodiazepines Scrn Not Detected Urine Cocaine Screen Not Detected U Marijuana (THC) Screen Not Detected Ethyl Alcohol < 10 Assessment and Plan (1) Acute hypokalemia: Status: Acute (2) Intractable nausea and vomiting: Status: Acute Plan 63-year-old male with past medical history of alcohol withdrawal seizure, BPH, hypertension, hyperlipidemia, hypokalemia, VIRAJ on CPAP, possible paroxysmal AFib, BPH, chronic back pain had spinal stimulator. Intractable nausea vomiting unclear etiology ? Patient patient has chronic history of similar episodes Bowel rest, NPO, Continue IV fluid, antiemetics, ppi Urine drug screen GI evaluation Hypokalemia : IV potassium given Patient has multiple other medical comorbidities including hypertension, hyperlipidemia, VIRAJ on CPAP,possible paroxysmal AFib, BPH, chronic back pain had spinal stimulator-we will reconcile medications once medical reconciliation is done. DVT prophylaxis: SubQ Lovenox Patient will be admitted as observation for intractable nausea vomiting requiring IV fluids, unable to tolerate diet, also electrolyte abnormalities and monitoring of renal function and electrolytes. Above management discussed with the patient detail length he understand in agreement with the above plan, time spent 70 minute, patient full code. Quality Stroke Does the patient have a stroke diagnosis?: No VTE Prior VTE?: No VTE Risk Level:: Medical - moderate - high VTE Device Contraindication: N/A - Device Ordered VTE Drug Contraindication: N/A - Med Ordered
[2024-01-15] MEDS: Lactated Ringers 1,000 ML 100 ML IVCONT (17:29)
[2024-01-15] MEDS: Enoxaparin Sodium 40 MG/0.4 ML SYRINGE SUBCUT (17:29)
[2024-01-15] MEDS: ondansetron HCL 4 MG/2 ML VIAL IVPUSH (17:34)
--- NOTE | 2024-01-15 17:59 | PHA.MEDREC ---
Addendum entered by Rachid [facility] 01/15/24 18:34: med rec reviewed Original Note: Pharmacy Consult ? Medication Reconciliation Pharmacy has completed the medication reconciliation.
[2024-01-15 18:03] LABS: Bacteria Urine None Seen (None Seen); RBC Urine 0-2 /HPF (0-2); Squamous Epithelial Cell Urine 0-2 /HPF (0-2); WBC Urine 0-5 /HPF (0-5)
[2024-01-15 20:21] LABS: Glucose, Whole Blood 99 mg/dL (60-115)
[2024-01-15 20:57] LABS: Amphetamine Screen Urine Not Detected (Not Detect); Barbiturates, Urine Not Detected (Not Detect); Benzodiazepines Screen Urine Not Detected (Not Detect); Buprenorphine Scr Not Detected (Not Detect); Cannabinoid Screen Urine Not Detected (Not Detect); Cocaine Screen Urine Not Detected (Not Detect); Fentanyl, urine Not Detected (Not Detect); Methadone Screen, Urine Not Detected (Not Detect); Opiate Screen Urine Not Detected (Not Detect); Oxycodone Screen Urine Not Detected (Not Detect); Phencyclidine Screen Urine Not Detected (Not Detect)
[2024-01-15] MEDS: traZODone HCL 50 MG TABLET PO (21:09)
[2024-01-15] MEDS: Gabapentin 600 MG TABLET PO (21:09)
[2024-01-15] MEDS: Metoprolol Tartrate 25 MG TABLET PO (21:09)
[2024-01-15] MEDS: Pantoprazole Sodium 40 MG/10 ML VIAL IVPUSH (21:09)
[2024-01-15] MEDS: QUEtiapine Fumarate 100 MG TABLET PO (21:09)
[2024-01-15] MEDS: LORazepam 1 MG TABLET PO (21:18)
[2024-01-16] VITALS: BP 103/56; PULSE 60; RESP 16; TEMP 36; O2SAT 95
[2024-01-16 00:20] LABS: Glucose, Whole Blood 84 mg/dL (60-115)
[2024-01-16] MEDS: Lactated Ringers 1,000 ML 100 ML IVCONT (03:59)
[2024-01-16 04:00] VITALS: BP 101/58; PULSE 55; RESP 16; TEMP 36.1; O2SAT 94
[2024-01-16] MEDS: Loperamide HCl 2 MG CAPSULE PO (05:17)
[2024-01-16] MEDS: Acetaminophen 325 MG TABLET 650 MG PO (05:17)
[2024-01-16 06:30] LABS: Glucose, Whole Blood 97 mg/dL (60-115)
[2024-01-16] MEDS: Morphine Sulfate 2 MG/ML CARTRIDGE 1 MG IVPUSH (06:41)
[2024-01-16 07:21] LABS: Anion Gap 12 (12-20); Blood Urea Nitrogen 13 mg/dL (9-16); Calcium 9.2 mg/dL (8.4-10.2); Carbon Dioxide 24 mmol/L (22-29); Chloride 107 mmol/L (96-108); Creatinine Clr Calc Pharmacy 43.5; Estimated Glomerular Filt Rate 39; Glucose Random 93 mg/dL (60-115); Potassium 3.2 mmol/L (3.3-5.1); Sodium 140 mmol/L (135-145)
[2024-01-16 07:43] VITALS: BP 118/63; PULSE 50; RESP 16; TEMP 36.4; O2SAT 95
[2024-01-16 07:55] LABS: Glucose, Whole Blood 92 mg/dL (60-115)
[2024-01-16] MEDS: Pantoprazole Sodium 40 MG/10 ML VIAL IVPUSH (08:13)
[2024-01-16] MEDS: Naltrexone HCl 50 MG TABLET 25 MG PO (08:14)
[2024-01-16] MEDS: ARIPiprazole 5 MG TABLET PO (08:14)
[2024-01-16] MEDS: Cholecalciferol (Vitamin D3) 25 MCG TABLET PO (08:14)
[2024-01-16] MEDS: Gabapentin 600 MG TABLET PO (08:14)
[2024-01-16] MEDS: Dicyclomine HCl 10 MG CAPSULE PO ×2 (08:14→11:15)
[2024-01-16] MEDS: Potassium Chloride ER 20 MEQ TAB.ER.PRT PO (08:14)
[2024-01-16] MEDS: buPROPion HCl XL 150 MG TAB.ER.24H PO (08:14)
[2024-01-16] MEDS: Tolterodine Tartrate LA 4 MG CAP.ER.24H PO (08:14)
[2024-01-16] MEDS: Multivitamin TABLET 1 TAB PO (08:14)
[2024-01-16] MEDS: Aspirin Enteric Coated 81 MG TABLET.DR PO (08:14)
[2024-01-16 08:15] VITALS: BP 118/63; PULSE 50
[2024-01-16] MEDS: Atorvastatin Calcium 80 MG TABLET PO (08:15)
[2024-01-16] MEDS: FLUoxetine HCl 20 MG CAPSULE 60 MG PO (08:15)
[2024-01-16] MEDS: amLODIPine Besylate 10 MG TABLET PO (08:15)
[2024-01-16 08:38] VITALS: PULSE 66; RESP 16; O2SAT 98
[2024-01-16] MEDS: Fluticasone/Umeclidinium/Vilanterol 200/62.5/25 BLST.W.DEV 1 PUFF INHALE (08:38)
--- NOTE | 2024-01-16 09:19 | PM.GICN ---
History of Present Illness Data of Consult Service Date: 01/16/24 Requesting physician: India Blake Primary Care Provider: Saul Spicer MD HPI Reason for consult: nausea 63-year-old male with history of alcohol withdrawal seizure, BPH, hypertension, hyperlipidemia, hypokalemia, VIRAJ on CPAP, possible paroxysmal AFib, BPH, chronic back pain had spinal stimulator, H pylori s/p treatment and gallstones who I am seeing for assessment for nausea Patient noted 3 d of persistent nausea and non bloody vomiting wth poor PO appettite, yellowish diarrhea and upper abdo cramping after eating which can be 8/10 in severity without radiation. Denies melena, and no dysphagia. No sick contacts, no ingestion of poorly cooked foods or meats. no dysphagia or gerd. Last alcohol use- 1 yr ago- , denies taking aspirin or nsaid Today he feels much better with fluids, and suportive care, nausea is gone and stools seem to be forming, pain is less. he wants to try to eat as he feels some of his pain is due to hunge.r Review of Systems Review of Systems: Constitutional : No Weight loss, No Fever, No Chills ENT/Mouth : No sore throat, No Rhinorrhea Eyes: No Swelling, No Redness Cardiovascular : No Chest Pain, No SOB, No Edema Respiratory : No Cough, No Sputum, No Wheezing Gastrointestinal : see HPI Genitourinary : NO Dysuria, No Urinary Frequency, No Hematuria, No Urgency Musculoskeletal : + joint pain, No Myalgias, No Joint Swelling Skin : No Skin Lesions, No rash Neuro : No Weakness, No Numbness, No Dizziness, No Headache Psych : No Anxiety/Panic, No Depression Heme/Lymph: No Bruising, No Lymphadenopathy Endocrine : No Polyuria, No Polydipsia All other systems reviewed and are negative. [facility] Past Medical History Medical History Type 2 diabetes mellitus with unspecified complications History of alcohol use Elevated PSA BPH loc w urin obs/LUTS Allergic rhinitis VIRAJ on CPAP COPD (chronic obstructive pulmonary disease) Family History Family History Father HTN (hypertension) Surgical History Surgical History History of back surgery History of back surgery Social History Social History Household Members: Other Household Members Other:: 2 Rabbits Alcohol intake: former Patient Tobacco Use Status: Current everyday Tobacco user Tobacco use type: Cigarette Cigarettes Per Day: 6 Years Smoked: 30 +/- Advance Directives Date on File: 01/15/24 Meds Allergies Allergy/AdvReac Type Severity Reaction Status Date / Time No Known Allergies Allergy Verified 01/15/24 11:09 [No Known Allergies*] Active Medications: Current Medications Acetaminophen (Acetaminophen 325 Mg Tablet) 650 mg PO Q6H PRN PRN Reason: Pain, Mild (Pain Scale 1-3), fever or headache Last Admin: 01/16/24 05:17 Dose: 650 mg Albuterol Sulfate (Albuterol Sulfate 90 Mcg 8 Gm Inhaler) 2 puff INHALE Q6H PRN PRN Reason: for wheezing Albuterol/Ipratropium (Albuterol/Iprat 2.5/0.5mg 3 Ml Ampul.Neb) 1.5 ml INHALE Q6H PRN PRN Reason: for wheezing Amlodipine Besylate (Amlodipine Besylate 10 Mg Tablet) 10 mg PO DAILY [facility]; Protocol Last Admin: 01/16/24 08:15 Dose: 10 mg Aripiprazole (Aripiprazole 5 Mg Tablet) 5 mg PO DAILY [facility] Last Admin: 01/16/24 08:14 Dose: 5 mg Aspirin (Aspirin Enteric Coated 81 Mg Tablet.Dr) 81 mg PO DAILY [facility] Last Admin: 01/16/24 08:14 Dose: 81 mg Atorvastatin Calcium (Atorvastatin Calcium 80 Mg Tablet) 80 mg PO DAILY [facility] Last Admin: 01/16/24 08:15 Dose: 80 mg Azelastine HCl (Azelastine Hcl Nasal 137 Mcg/[place] 30 Ml) 1 spray NOSTRIL-B BID [facility] Last Admin: 01/15/24 21:10 Dose: Not Given Bupropion HCl (Bupropion Hcl Xl 150 Mg Tab.Er.24h) 150 mg PO DAILY [facility] Last Admin: 01/16/24 08:14 Dose: 150 mg Calcium Carbonate (Calcium Carbonate 750 Mg Tab.Chew) 750 mg PO Q4H PRN PRN Reason: Heartburn Dicyclomine HCl (Dicyclomine Hcl 10 Mg Capsule) 10 mg PO TIDAC [facility] Last Admin: 01/16/24 08:14 Dose: 10 mg Enoxaparin Sodium (Enoxaparin Sodium 40 Mg/0.4 Ml Syringe) 40 mg SUBCUT Q24H [facility] Last Admin: 01/15/24 17:29 Dose: 40 mg Fluoxetine HCl (Fluoxetine Hcl 20 Mg Capsule) 60 mg PO DAILY [facility] Last Admin: 01/16/24 08:15 Dose: 60 mg Fluticasone/Umeclidinium/Vilanterol (Fluticasone/Umeclidinium/Vilanterol 200/62.5/25 Blst.W.Dev) 1 puff INHALE RDAILY [facility] Last Admin: 01/16/24 08:38 Dose: 1 puff Gabapentin (Gabapentin 600 Mg Tablet) 600 mg PO BID [facility] Last Admin: 01/16/24 08:14 Dose: 600 mg Glucose (Glucose Gel 15 Gm Gel..Gram.) 15 gm PO Q15M PRN; Protocol PRN Reason: per Hypoglycemia Standing Ord. Hydroxyzine HCl (Hydroxyzine Hcl 25 Mg Tablet) 25 mg PO DAILY PRN PRN Reason: Anxiety Lactated Ringer's (Lr) 1,000 mls @ 100 mls/hr IVCONT .Q10H [facility] Last Admin: 01/16/24 03:59 Dose: 100 mls/hr Dextrose (D10) 250 mls @ 750 mls/hr IV Q15M PRN; Protocol PRN Reason: per Hypoglycemia Standing Ord. Insulin Human Lispro (Insulin Lispro 100 Unit/Ml 3 Ml Vial) 0 unit SUBCUT Q6H [facility]; Protocol Last Admin: 01/16/24 06:27 Dose: Not Given Loperamide HCl (Loperamide Hcl 2 Mg Capsule) 2 mg PO QID PRN PRN Reason: Diarrhea Last Admin: 01/16/24 05:17 Dose: 2 mg Lorazepam (Lorazepam 1 Mg Tablet) 1 mg PO TID PRN PRN Reason: Anxiety Last Admin: 01/15/24 21:18 Dose: 1 mg Magnesium Hydroxide (Milk Of Magnesia 30 Ml Oral.Susp) 30 ml PO DAILY PRN PRN Reason: Constipation Melatonin (Melatonin 3 Mg Tablet) 6 mg PO BEDTIME PRN PRN Reason: Insomnia Metoprolol Tartrate (Metoprolol Tartrate 25 Mg Tablet) 25 mg PO BID [facility]; Protocol Last Admin: 01/16/24 08:15 Dose: Not Given Multivitamins/Vitamin C (Multivitamin Tablet) 1 tab PO DAILY [facility] Last Admin: 01/16/24 08:14 Dose: 1 tab Naltrexone HCl (Naltrexone Hcl 50 Mg Tablet) 25 mg PO DAILY [facility] Last Admin: 01/16/24 08:14 Dose: 25 mg Non-Formulary Medication (Eoxsut-Kqpyvzhi-Qxvizus [Creon]) 1 cap PO TIDAC [facility] Non-Formulary Medication (Testosterone) 2 pump TOPICAL DAILY [facility] Ondansetron HCl (Ondansetron Hcl 4 Mg/2 Ml Vial) 4 mg IVPUSH Q8H PRN PRN Reason: nausea /vomitin Last Admin: 01/15/24 17:34 Dose: 4 mg Pantoprazole Sodium (Pantoprazole Sodium 40 Mg/10 Ml Vial) 40 mg IVPUSH BID [facility] Last Admin: 01/16/24 08:13 Dose: 40 mg Quetiapine Fumarate (Quetiapine Fumarate 100 Mg Tablet) 100 mg PO BEDTIME [facility] Last Admin: 01/15/24 21:09 Dose: 100 mg Sodium Chloride (0.9 % Sodium Chloride Flush 3 Ml Syringe) 3 ml IVFLUSH QSHIFT [facility] Last Admin: 01/16/24 08:10 Dose: Not Given Tizanidine HCl (Tizanidine Hcl 4 Mg Tablet) 2 mg PO Q8H PRN PRN Reason: muscle spasm Tolterodine Tartrate (Tolterodine Tartrate [place] 4 Mg Cap.Er.24h) 4 mg PO DAILY [facility] Last Admin: 01/16/24 08:14 Dose: 4 mg Trazodone HCl (Trazodone Hcl 50 Mg Tablet) 50 mg PO BEDTIME [facility] Last Admin: 01/15/24 21:09 Dose: 50 mg Vitamin D (Cholecalciferol (Vitamin D3) 25 Mcg Tablet) 25 mcg PO DAILY [facility] Last Admin: 01/16/24 08:14 Dose: 25 mcg Home Medications ?Medication ?Instructions ?Recorded ?Confirmed ?Last Taken ?Type aspirin 81 mg tablet,delayed 81 mg PO DAILY 09/02/20 01/15/24 01/15/24 09:00 History release atorvastatin 80 mg tablet 80 mg PO DAILY 09/02/20 01/15/24 01/15/24 09:00 History cholecalciferol (vitamin D3) 25 25 mcg PO DAILY 09/02/20 01/15/24 01/15/24 09:00 History mcg (1,000 unit) tablet lorazepam 1 mg tablet 1 mg PO TID PRN Anxiety 03/28/21 01/15/24 Unknown History bupropion HCl 150 mg 24 hr tablet, 150 mg PO DAILY 08/25/21 01/15/24 01/15/24 09:00 History extended release multivitamin with folic acid 400 1 tab PO DAILY 11/05/21 01/15/24 01/15/24 09:00 History mcg tablet (Daily-Sadi (with folic acid)) quetiapine 100 mg tablet 100 mg PO BEDTIME 11/05/21 01/15/24 09/07/22 22:00 History acetaminophen 500 mg tablet 1,000 mg PO Q6H PRN Pain 11/18/21 01/15/24 Unknown History naltrexone 50 mg tablet 25 mg PO DAILY 02/19/22 01/15/24 01/15/24 09:00 History amlodipine 10 mg tablet 10 mg PO DAILY 05/19/22 01/15/24 01/15/24 09:00 History blood sugar diagnostic (FreeStyle #10 ea 05/19/22 08/19/23 Unknown History Lite Strips) blood-glucose meter (FreeStyle #1 ea 05/19/22 08/19/23 Unknown History [place] Lite kit) lancets 28 gauge (FreeStyle #100 ea 05/19/22 08/19/23 Unknown History Lancets) gabapentin 600 mg tablet 600 mg PO BID 06/18/22 01/15/24 01/15/24 09:00 History albuterol sulfate 90 mcg/actuation 2 puff PO Q6H PRN for wheezing 01/15/24 01/15/24 Unknown History aerosol inhaler (Ventolin HFA) aripiprazole 5 mg tablet 5 mg PO DAILY 01/15/24 01/15/24 01/15/24 09:00 History dicyclomine 10 mg capsule 10 mg PO TIDAC 01/15/24 01/15/24 01/15/24 09:00 History fluoxetine 20 mg capsule 20 mg PO DAILY 01/15/24 01/15/24 01/15/24 09:00 History fluoxetine 40 mg capsule 40 mg PO DAILY 01/15/24 01/15/2401/14/24 09:00 History furosemide 20 mg tablet 20 mg PO DAILY 01/15/24 01/15/24 01/15/24 09:00 History hydroxyzine HCl 25 mg tablet 25 mg PO DAILY PRN Anxiety 01/15/24 01/15/24 Unknown History ipratropium 0.5 mg-albuterol 3 mg 1.5 ml inhalation Q6H PRN for 01/15/24 01/15/24 Unknown History (2.5 mg base)/3 mL nebulization wheezing soln cbkebk-psrihkav-dwxbpmi 1 cap PO TIDAC 01/15/24 01/15/24 01/15/24 09:00 History 36,000-114,000-180,000 unit capsule,delay rel (Creon) loperamide 2 mg capsule 2 mg PO QID PRN Diarrhea 01/15/24 01/15/24 Unknown History ondansetron 4 mg disintegrating 4 mg PO Q8H PRN Nausea And Vomiting 01/15/24 01/15/24 Unknown History tablet tizanidine 2 mg tablet 2 mg PO Q8H PRN muscle spasm 01/15/24 01/15/24 Unknown History trazodone 50 mg tablet 50 mg PO BEDTIME 01/15/24 01/15/24 Unknown History Physical Exam Vital Signs: Vital Signs: Last Vital Signs Temp 97.5 F 01/16/24 07:43 Pulse 66 01/16/24 08:38 Resp 16 01/16/24 08:38 BP 118/63 01/16/24 08:15 Pulse Ox 95 01/16/24 07:43 O2 Del Method Room Air 01/16/24 07:43 O2 Flow Rate 1 01/16/24 04:00 BMI result Body Mass Index 23.8 Appearance: Alert. Oriented X3. No acute distress. Eyes: Pupils equal, round and reactive to light. ENT: Pharynx mildly dry MM Neck: Normal inspection. Neck supple. CVS: Normal heart rate and rhythm. Pulses normal. Respiratory: No respiratory distress. Breath sounds normal. Abdomen: Soft and mild diffuse ttp no rebound or guarding Skin: Skin warm and dry. Normal skin color. Normal skin turgor. Extremities: No lower extremity edema. No calf ttp Neuro: Oriented X 3. No motor deficit. No sensory deficit. Psych: Appearance: grossly normal Results Labs 01/15/24:43 01/16/24 05:46 Labs: Short CBC 01/15/24 Range/Units 11:43 WBC 11.4 H (4.8-10.8) X10*3/uL Hgb 16.8 D (14.0-18.0) g/dl Hct 49.2 D (42.0-52.0) % Plt Count 282 (160-400) X10*3/uL BMP 01/15/24 01/16/24 11:43 05:46 Sodium 139 140 Potassium 3.2 L D 3.2 L Chloride 105 107 Carbon Dioxide 21 L 24 BUN 15 13 Creatinine 1.96 H 1.76 H Calcium 10.8 H D 9.2 D Liver Function 01/15/24 Range/Units 11:43 Total Bilirubin 0.6 (0.0-1.0) mg/dL Direct Bilirubin 0.2 (0.0-0.5) mg/dL AST 26 (5-37) U/L ALT 19 (0-40) U/L Alkaline Phosphatase 69 (39-117) U/L Albumin 4.6 (3.5-5.0) g/dL Urine 01/15/24 Range/Units 15:15 Urine Color Dark Yellow Urine Appearance Clear Urine pH 6.5 (5.0-9.0) Ur Specific [place] 1.025 (1.005-1.025) Urine Protein Trace (Neg-Trace) mg/dL Urine Glucose (UA) Negative (Negative) mg/dL Assessment and Plan (1) Intractable nausea and vomiting: Status: Acute Plan 1/ Nausea, vomiting, diarrhea now improving and he feels hungry -- most likely a viral gastroenteritis, PLAN: 1/ advance diet as tolerated 2/ if conts to improve then home, otherwise can consider EGD to r/o other pathology such as PUD< GOO 3/ stool GI PCR panel Procedures Date of Service Date of Service: 01/16/24
--- NOTE | 2024-01-16 10:56 | P.PNIM_ITS ---
Subjective Subjective Date of Service: 01/16/24 Interval History: nasuea vomiting Review of Systems vomting improved ,nauseated ,has abd cramping Physical Exam 2 Vital Signs: Vital Signs: Last Vital Signs Temp 97.5 F 01/16/24 07:43 Pulse 66 01/16/24 08:38 Resp 16 01/16/24 08:38 BP 118/63 01/16/24 08:15 Pulse Ox 95 01/16/24 07:43 O2 Del Method Room Air 01/16/24 07:43 O2 Flow Rate 1 01/16/24 04:00 BMI result Body Mass Index 23.8 Objective Data Active Medications Acetaminophen (Acetaminophen 325 Mg Tablet) 650 mg PO Q6H PRN PRN Reason: Pain, Mild (Pain Scale 1-3), fever or headache Last Admin: 01/16/24 05:17 Dose: 650 mg Documented By: HEBERT Albuterol Sulfate (Albuterol Sulfate 90 Mcg 8 Gm Inhaler) 2 puff INHALE Q6H PRN PRN Reason: for wheezing Albuterol/Ipratropium (Albuterol/Iprat 2.5/0.5mg 3 Ml Ampul.Neb) 1.5 ml INHALE Q6H PRN PRN Reason: for wheezing Amlodipine Besylate (Amlodipine Besylate 10 Mg Tablet) 10 mg PO DAILY [facility]; Protocol Last Admin: 01/16/24 08:15 Dose: 10 mg Documented By: YORDAN Aripiprazole (Aripiprazole 5 Mg Tablet) 5 mg PO DAILY [facility] Last Admin: 01/16/24 08:14 Dose: 5 mg Documented By: YORDAN Aspirin (Aspirin Enteric Coated 81 Mg Tablet.Dr) 81 mg PO DAILY [facility] Last Admin: 01/16/24 08:14 Dose: 81 mg Documented By: YORDAN Atorvastatin Calcium (Atorvastatin Calcium 80 Mg Tablet) 80 mg PO DAILY [facility] Last Admin: 01/16/24 08:15 Dose: 80 mg Documented By: YORDAN Azelastine HCl (Azelastine Hcl Nasal 137 Mcg/[employer] 30 Ml) 1 spray NOSTRIL-B BID [facility] Last Admin: 01/15/24 21:10 Dose: Not Given Documented By: HEBERT Non-Admin Reason: Patient Refused Bupropion HCl (Bupropion Hcl Xl 150 Mg Tab.Er.24h) 150 mg PO DAILY [facility] Last Admin: 01/16/24 08:14 Dose: 150 mg Documented By: YORDAN Calcium Carbonate (Calcium Carbonate 750 Mg Tab.Chew) 750 mg PO Q4H PRN PRN Reason: Heartburn Dicyclomine HCl (Dicyclomine Hcl 10 Mg Capsule) 10 mg PO TIDAC [facility] Last Admin: 01/16/24 08:14 Dose: 10 mg Documented By: YORDAN Enoxaparin Sodium (Enoxaparin Sodium 40 Mg/0.4 Ml Syringe) 40 mg SUBCUT Q24H [facility] Last Admin: 01/15/24 17:29 Dose: 40 mg Documented By: AZAEL Fluoxetine HCl (Fluoxetine Hcl 20 Mg Capsule) 60 mg PO DAILY [facility] Last Admin: 01/16/24 08:15 Dose: 60 mg Documented By: YORDAN Fluticasone/Umeclidinium/Vilanterol (Fluticasone/Umeclidinium/Vilanterol 200/62.5/25 Blst.W.Dev) 1 puff INHALE RDAILY [facility] Last Admin: 01/16/24 08:38 Dose: 1 puff Documented By: BROOK[place]N Gabapentin (Gabapentin 600 Mg Tablet) 600 mg PO BID [facility] Last Admin: 01/16/24 08:14 Dose: 600 mg Documented By: YORDAN Glucose (Glucose Gel 15 Gm Gel..Gram.) 15 gm PO Q15M PRN; Protocol PRN Reason: per Hypoglycemia Standing Ord. Hydroxyzine HCl (Hydroxyzine Hcl 25 Mg Tablet) 25 mg PO DAILY PRN PRN Reason: Anxiety Lactated Ringer's (Lr) 1,000 mls @ 100 mls/hr IVCONT .Q10H [facility] Last Admin: 01/16/24 03:59 Dose: 100 mls/hr Documented By: HEBERT Dextrose (D10) 250 mls @ 750 mls/hr IV Q15M PRN; Protocol PRN Reason: per Hypoglycemia Standing Ord. Insulin Human Lispro (Insulin Lispro 100 Unit/Ml 3 Ml Vial) 0 unit SUBCUT Q6H [facility]; Protocol Last Admin: 01/16/24 06:27 Dose: Not Given Documented By: HEBERT Non-Admin Reason: No Insulin Coverage Loperamide HCl (Loperamide Hcl 2 Mg Capsule) 2 mg PO QID PRN PRN Reason: Diarrhea Last Admin: 01/16/24 05:17 Dose: 2 mg Documented By: HEBERT Lorazepam (Lorazepam 1 Mg Tablet) 1 mg PO TID PRN PRN Reason: Anxiety Last Admin: 01/15/24 21:18 Dose: 1 mg Documented By: HEBERT Magnesium Hydroxide (Milk Of Magnesia 30 Ml Oral.Susp) 30 ml PO DAILY PRN PRN Reason: Constipation Melatonin (Melatonin 3 Mg Tablet) 6 mg PO BEDTIME PRN PRN Reason: Insomnia Metoprolol Tartrate (Metoprolol Tartrate 25 Mg Tablet) 25 mg PO BID [facility]; Protocol Last Admin: 01/16/24 08:15 Dose: Not Given Documented By: YORDAN Non-Admin Reason: HR 50 Multivitamins/Vitamin C (Multivitamin Tablet) 1 tab PO DAILY [facility] Last Admin: 01/16/24 08:14 Dose: 1 tab Documented By: YORDAN Naltrexone HCl (Naltrexone Hcl 50 Mg Tablet) 25 mg PO DAILY [facility] Last Admin: 01/16/24 08:14 Dose: 25 mg Documented By: YORDAN Non-Formulary Medication ([id number] [Creon]) 1 cap PO TIDAC [facility] Non-Formulary Medication (Testosterone) 2 pump TOPICAL DAILY [facility] Ondansetron HCl (Ondansetron Hcl 4 Mg/2 Ml Vial) 4 mg IVPUSH Q8H PRN PRN Reason: nausea /vomitin Last Admin: 01/15/24 17:34 Dose: 4 mg Documented By: AZAEL Pantoprazole Sodium (Pantoprazole Sodium 40 Mg/10 Ml Vial) 40 mg IVPUSH BID [facility] Last Admin: 01/16/24 08:13 Dose: 40 mg Documented By: YORDAN Quetiapine Fumarate (Quetiapine Fumarate 100 Mg Tablet) 100 mg PO BEDTIME [facility] Last Admin: 01/15/24 21:09 Dose: 100 mg Documented By: HEBERT Sodium Chloride (0.9 % Sodium Chloride Flush 3 Ml Syringe) 3 ml IVFLUSH QSHIFT [facility] Last Admin: 01/16/24 08:10 Dose: Not Given Documented By: YORDAN Non-Admin Reason: IV Running Tizanidine HCl (Tizanidine Hcl 4 Mg Tablet) 2 mg PO Q8H PRN PRN Reason: muscle spasm Tolterodine Tartrate (Tolterodine Tartrate [place] 4 Mg Cap.Er.24h) 4 mg PO DAILY [facility] Last Admin: 01/16/24 08:14 Dose: 4 mg Documented By: YORDAN Trazodone HCl (Trazodone Hcl 50 Mg Tablet) 50 mg PO BEDTIME [facility] Last Admin: 01/15/24 21:09 Dose: 50 mg Documented By: HEBERT Vitamin D (Cholecalciferol (Vitamin D3) 25 Mcg Tablet) 25 mcg PO DAILY [facility] Last Admin: 01/16/24 08:14 Dose: 25 mcg Documented By: YORDAN Labs 01/15/24 11:43 01/16/24 05:46 Labs: Laboratory Results - last 24 hr 01/15/24 01/15/24 01/15/24 11:43 15:15 18:36 MCV 82.3 MCH 28.1 MCHC 34.1 RDW 14.0 Plt Count 282 MPV 9.5 Immature Gran % (Auto) 0.4 Neut % (Auto) 80.9 H Lymph % (Auto) 12.5 L [place] % (Auto) 5.2 Eos % (Auto) 0.6 Baso % (Auto) 0.4 Lymph # (Auto) 1.4 [place] # (Auto) 0.6 Eos # (Auto) 0.1 Baso # (Auto) 0.1 Abs Immat Gran (auto) 0.04 H Absolute Neuts (auto) 9.2 H Absolute Nucleated RBC 0.000 Nucleated RBC % (auto) 0.0 Anion Gap 16 Estim Creat Clear Calc 39.0 Estimated GFR 35 POC Glucose Random Glucose 135 H Calcium 10.8 H D Magnesium 2.3 Total Bilirubin 0.6 Direct Bilirubin 0.2 AST 26 ALT 19 Alkaline Phosphatase 69 Troponin I High Sens 4.3 Total Protein 7.7 Albumin 4.6 Lipase 64 Urine Color Dark Yellow Urine Appearance Clear Urine pH 6.5 Ur Specific [place] 1.025 Urine Protein Trace Urine Glucose (UA) Negative Urine Ketones Trace Urine Blood Negative Urine Nitrite Negative Ur Leukocyte Esterase Trace H Urine RBC 0-2 Urine WBC 0-5 Ur Squamous Epith Cells 0-2 Urine Bacteria None Seen Hyaline Casts 11-20 Urine Opiates Screen Not Detected Not Detected Ur Buprenorphine Scrn Not Detected Not Detected Ur Oxycodone Screen Not Detected Not Detected Urine Methadone Screen Not Detected Not Detected Urine Fentanyl Screen Not Detected Not Detected Ur Barbiturates Screen Not Detected Not Detected Ur Phencyclidine Scrn Not Detected Not Detected Ur Amphetamines Screen Not Detected Not Detected U Benzodiazepines Scrn Not Detected Not Detected Urine Cocaine Screen Not Detected Not Detected U Marijuana (THC) Screen Not Detected Not Detected Ethyl Alcohol < 10 01/15/24 01/16/24 01/16/24 20:16 00:11 05:46 MCV MCH MCHC RDW Plt Count MPV Immature Gran % (Auto) Neut % (Auto) Lymph % (Auto) [place] % (Auto) Eos % (Auto) Baso % (Auto) Lymph # (Auto) [place] # (Auto) Eos # (Auto) Baso # (Auto) Abs Immat Gran (auto) Absolute Neuts (auto) Absolute Nucleated RBC Nucleated RBC % (auto) Anion Gap 12 Estim Creat Clear Calc 43.5 Estimated GFR 39 POC Glucose 99 84 Random Glucose 93 Calcium 9.2 D Magnesium Total Bilirubin Direct Bilirubin AST ALT Alkaline Phosphatase Troponin I High Sens Total Protein Albumin Lipase Urine Color Urine Appearance Urine pH Ur Specific [place] Urine Protein Urine Glucose (UA) Urine Ketones Urine Blood Urine Nitrite Ur Leukocyte Esterase Urine RBC Urine WBC Ur Squamous Epith Cells Urine Bacteria Hyaline Casts Urine Opiates Screen Ur Buprenorphine Scrn Ur Oxycodone Screen Urine Methadone Screen Urine Fentanyl Screen Ur Barbiturates Screen Ur Phencyclidine Scrn Ur Amphetamines Screen U Benzodiazepines Scrn Urine Cocaine Screen U Marijuana (THC) Screen Ethyl Alcohol 01/16/24 01/16/24 06:26 07:46 MCV MCH MCHC RDW Plt Count MPV Immature Gran % (Auto) Neut % (Auto) Lymph % (Auto) [place] % (Auto) Eos % (Auto) Baso % (Auto) Lymph # (Auto) [place] # (Auto) Eos # (Auto) Baso # (Auto) Abs Immat Gran (auto) Absolute Neuts (auto) Absolute Nucleated RBC Nucleated RBC % (auto) Anion Gap Estim Creat Clear Calc Estimated GFR POC Glucose 97 92 Random Glucose Calcium Magnesium Total Bilirubin Direct Bilirubin AST ALT Alkaline Phosphatase Troponin I High Sens Total Protein Albumin Lipase Urine Color Urine Appearance Urine pH Ur Specific [place] Urine Protein Urine Glucose (UA) Urine Ketones Urine Blood Urine Nitrite Ur Leukocyte Esterase Urine RBC Urine WBC Ur Squamous Epith Cells Urine Bacteria Hyaline Casts Urine Opiates Screen Ur Buprenorphine Scrn Ur Oxycodone Screen Urine Methadone Screen Urine Fentanyl Screen Ur Barbiturates Screen Ur Phencyclidine Scrn Ur Amphetamines Screen U Benzodiazepines Scrn Urine Cocaine Screen U Marijuana (THC) Screen Ethyl Alcohol Quality Stroke Does the patient have a stroke diagnosis?: No VTE Prior VTE?: No VTE Risk Level:: Medical - moderate - high VTE Device Contraindication: N/A - Device Ordered VTE Drug Contraindication: N/A - Med Ordered
[2024-01-16 11:09] VITALS: BP 113/66; PULSE 55; RESP 18; TEMP 36.4; O2SAT 96
[2024-01-16] MEDS: Azelastine HCl Nasal 137 MCG/Spray 30 ML 1 SPRAY NOSTRIL-B (11:10)
[2024-01-16 11:34] LABS: Glucose, Whole Blood 112 mg/dL (60-115)
[2024-01-16 12:04] LABS: Adenovirus F 40/41 Not Detected (Not Detect.); Astrovirus Not Detected (Not Detect.); Campylobacter Not Detected (Not Detect.); Cryptosporidium Not Detected (Not Detect.); Cyclospora cayetanensis Not Detected (Not Detect.); E. coli EAEC Not Detected (Not Detect.); E. coli EPEC Not Detected (Not Detect.); E. coli ETEC Not Detected (Not Detect.); E. coli STEC Not Detected (Not Detect.); Entamoeba histolytica Not Detected (Not Detect.); Giardia lamblia Not Detected (Not Detect.); Norovirus GI/GII Not Detected (Not Detect.); Plesiomonas shigelloides Not Detected (Not Detect.); Rotavirus A Not Detected (Not Detect.); Salmonella Not Detected (Not Detect.); Sapovirus Not Detected (Not Detect.); Shigella sp./EIEC Not Detected (Not Detect.); Vibrio Not Detected (Not Detect.); Vibrio Cholerae Not Detected (Not Detect.); Yersinia enterocolitica Not Detected (Not Detect.)
--- NOTE | 2024-01-16 13:50 | P.DS_ITS ---
DS: Providers Provider Date of Service: 01/16/24 Date of admission: 01/15/24 16:12 Date of discharge: 01/16/24 Primary care physician: Saul Spicer MD Consults: 01/15/24 16:26 Consult to Gastroenterology Routine Consulting Provider: Francoise Juárez Reason for consultation: Intractable nausea vomiting unclear etiology not responding to medical rx Has provider been notified: No Attending physician on discharge: India Blake Discharging clinician: India Blake DS: Diagnosis Discharge Diagnosis (1) Intractable nausea and vomiting: Status: Acute DS: Summary Hospital Course Hospital Course: 63-year-old male with past medical history of alcohol withdrawal seizure, BPH, hypertension, hyperlipidemia, hypokalemia, VIRAJ on CPAP, possible paroxysmal AFib, BPH, chronic back pain had spinal stimulator-he says he came to the hospital because he is having 2 -3 days history of intractable nausea vomiting unable to eat, feeling dehydrated-so decided to come to the hospital. He denies any abdominal pain except some epigastric discomfort after vomiting, no diarrhea. Patient says that he has these episodes on and off from long time and correlate'' abdominal migraine''. received multiple meds for nausea ,vomiting -did not response ,so admitted for supportive care ,observation and Gi eval. Lab imaging reviewed: Mild hypokalemia of 3.2, EKG seems similar to 2021 Urine drug screen pending Denies any new complaint of chest pain or shortness of breath or fever or chills or diarrhae Denies any cough Denies any weakness or numbness. Patient denies any alcohol use or any recreation drug use or recent travel or any antibiotic use or any sick contacts. Patient received Reglan, Ativan, IV fluids in the ED-admission requested for intractable nausea vomiting Hospital course: Patient was admitted for nausea vomiting, mild hypokalemia: Patient was started on bowel rest, IV hydration , potassium repleted: Patient seems to be improved significantly. Seen by GI thought to be possible secondary to possible viral gastroenteritis. Patient improved to the baseline, tolerating diet, going home. BmP Follow-up in 1 week. plan: Potassium 10 mEq p.o. daily for 3 days, monitor BMP in 1 week outpatient. Follow-up outpatient with PCP. Consider outpatient GI. Above management discussed with the patient detail length he understand in agreement with the above plan, time spent 40 minute. Time Attestation Discharge Coordination Time (in mins): 40 min Quality: Safe Use of Opioids Does Pt have an Active Cancer Diagnosis on the Problem List?: No Quality: Stroke Does the patient have a stroke diagnosis?: No Physical Exam Vital Signs: Vital Signs: Last Vital Signs Temp 97.6 F 01/16/24 11:09 Pulse 55 01/16/24 11:09 Resp 18 01/16/24 11:09 BP 113/66 01/16/24 11:09 Pulse Ox 96 01/16/24 11:09 O2 Del Method Room Air 01/16/24 11:09 O2 Flow Rate 1 01/16/24 04:00 BMI result Body Mass Index 23.8 Appearance: Alert.? Oriented X3.? cvs: rrr, [id number] , no murmur res: clear to auscultation ,no rhonchii or wheezing abd: no rebound or guarding ,nt, bs present. ext pulses present , no cyanosis . neuro: axo3 , nonfocal. DS: Data Data Completed and Pending Labs on day of discharge: Laboratory Results - last 24 hr 01/15/24 01/15/24 01/15/24 15:15 18:36 20:16 Sodium Potassium Chloride Carbon Dioxide Anion Gap BUN Creatinine Estim Creat Clear Calc Estimated GFR POC Glucose 99 Random Glucose Calcium Urine Color Dark Yellow Urine Appearance Clear Urine pH 6.5 Ur Specific [place] 1.025 Urine Protein Trace Urine Glucose (UA) Negative Urine Ketones Trace Urine Blood Negative Urine Nitrite Negative Ur Leukocyte Esterase Trace H Urine RBC 0-2 Urine WBC 0-5 Ur Squamous Epith Cells 0-2 Urine Bacteria None Seen Hyaline Casts 11-20 Stl C. cayetanensis PCR Stool Rotavirus A PCR Stl Adenov F PCR Stool Astrovirus (PCR) Stool Campylobacter PCR Stool Cryptosporidium PCR Stl Sh Tox Pr E STEC PCR Stool E coli O157 PCR Stl Enterotoxigenic E PCR Stool EPEC (PCR) Stool EAEC (PCR) Stl E. histolytica PCR Stool Giardia Lamblia PCR Stl P. shigelloides PCR Stool Salmonella PCR Stool Sapovirus (PCR) Stl Shigella/EIEC PCR St Y.enterocolitica PCR Stool Vibrio (PCR) Stl Vibrio cholerae PCR Stl Norovirus GI/GII PCR Urine Opiates Screen Not Detected Not Detected Ur Buprenorphine Scrn Not Detected Not Detected Ur Oxycodone Screen Not Detected Not Detected Urine Methadone Screen Not Detected Not Detected Urine Fentanyl Screen Not Detected Not Detected Ur Barbiturates Screen Not Detected Not Detected Ur Phencyclidine Scrn Not Detected Not Detected Ur Amphetamines Screen Not Detected Not Detected U Benzodiazepines Scrn Not Detected Not Detected Urine Cocaine Screen Not Detected Not Detected U Marijuana (THC) Screen Not Detected Not Detected 01/16/24 01/16/24 01/16/24 00:11 05:46 06:26 Sodium 140 Potassium 3.2 L Chloride 107 Carbon Dioxide 24 Anion Gap 12 BUN 13 Creatinine 1.76 H Estim Creat Clear Calc 43.5 Estimated GFR 39 POC Glucose 84 97 Random Glucose 93 Calcium 9.2 D Urine Color Urine Appearance Urine pH Ur Specific [place] Urine Protein Urine Glucose (UA) Urine Ketones Urine Blood Urine Nitrite Ur Leukocyte Esterase Urine RBC Urine WBC Ur Squamous Epith Cells Urine Bacteria Hyaline Casts Stl C. cayetanensis PCR Stool Rotavirus A PCR Stl Adenov F 40/ PCR Stool Astrovirus (PCR) Stool Campylobacter PCR Stool Cryptosporidium PCR Stl Sh Tox Pr E STEC PCR Stool E coli O157 PCR Stl Enterotoxigenic E PCR Stool EPEC (PCR) Stool EAEC (PCR) Stl E. histolytica PCR Stool Giardia Lamblia PCR Stl P. shigelloides PCR Stool Salmonella PCR Stool Sapovirus (PCR) Stl Shigella/EIEC PCR St Y.enterocolitica PCR Stool Vibrio (PCR) Stl Vibrio cholerae PCR Stl Norovirus GI/GII PCR Urine Opiates Screen Ur Buprenorphine Scrn Ur Oxycodone Screen Urine Methadone Screen Urine Fentanyl Screen Ur Barbiturates Screen Ur Phencyclidine Scrn Ur Amphetamines Screen U Benzodiazepines Scrn Urine Cocaine Screen U Marijuana (THC) Screen 01/16/24 01/16/24 01/16/24 07:46 10:16 11:14 Sodium Potassium Chloride Carbon Dioxide Anion Gap BUN Creatinine Estim Creat Clear Calc Estimated GFR POC Glucose 92 112 Random Glucose Calcium Urine Color Urine Appearance Urine pH Ur Specific [place] Urine Protein Urine Glucose (UA) Urine Ketones Urine Blood Urine Nitrite Ur Leukocyte Esterase Urine RBC Urine WBC Ur Squamous Epith Cells Urine Bacteria Hyaline Casts Stl C. cayetanensis PCR Not Detected Stool Rotavirus A PCR Not Detected Stl Adenov F 40/ PCR Not Detected Stool Astrovirus (PCR) Not Detected Stool Campylobacter PCR Not Detected Stool Cryptosporidium PCR Not Detected Stl Sh Tox Pr E STEC PCR Not Detected Stool E coli O157 PCR Not applicable Stl Enterotoxigenic E PCR Not Detected Stool EPEC (PCR) Not Detected Stool EAEC (PCR) Not Detected Stl E. histolytica PCR Not Detected Stool Giardia [place] PCR Not Detected Stl P. shigelloides PCR Not Detected Stool Salmonella PCR Not Detected Stool Sapovirus (PCR) Not Detected Stl Shigella/EIEC PCR Not Detected St Y.enterocolitica PCR Not Detected Stool Vibrio (PCR) Not Detected Stl Vibrio cholerae PCR Not Detected Stl Norovirus GI/GII PCR Not Detected Urine Opiates Screen Ur Buprenorphine Scrn Ur Oxycodone Screen Urine Methadone Screen Urine Fentanyl Screen Ur Barbiturates Screen Ur Phencyclidine Scrn Ur Amphetamines Screen U Benzodiazepines Scrn Urine Cocaine Screen U Marijuana (THC) Screen Discharge Plan Discharge Anticipated Discharge Date/Time: 01/16/24 13:44 Patient Disposition: Home, Self-Care Discharge Diagnosis: Possible viral gastroenteritis Referrals: Saul Barbour MD [Primary Care Provider] - 1 Week Discharge Medications: New potassium chloride 10 mEq capsule, extended release 10 meq PO DAILY Qty: 3 0RF Continued metoprolol tartrate 25 mg tablet 25 mg PO BID Qty: 180 5RF azelastine 137 mcg (0.1 %) aerosol,spray 1 spray intranasal BID Qty: 90 0RF Trelegy Ellipta 200-62.5-25 mcg blister with device 1 ea PO DAILY Qty: 60 3RF fluoxetine 40 mg capsule 40 mg PO DAILY Rx Instructions: with 20 mg; tdd 60 mg tizanidine 2 mg tablet 2 mg PO Q8H PRN (Reason: muscle spasm) loperamide 2 mg capsule 2 mg PO QID PRN (Reason: Diarrhea) trazodone 50 mg tablet 50 mg PO BEDTIME hydroxyzine HCl 25 mg tablet 25 mg PO DAILY PRN (Reason: Anxiety) ondansetron 4 mg tablet,disintegrating 4 mg PO Q8H PRN (Reason: Nausea And Vomiting) fluoxetine 20 mg capsule 20 mg PO DAILY Rx Instructions: with 40 mg; tdd 60 mg dicyclomine 10 mg capsule 10 mg PO TIDAC aripiprazole 5 mg tablet 5 mg PO DAILY Creon 36,000-114,000- 180,000 unit capsule,delayed release(DR/EC) 1 cap PO TIDAC furosemide 20 mg tablet 20 mg PO DAILY ipratropium-albuterol 0.5 mg-3 mg(2.5 mg base)/3 mL solution for nebulization 1.5 ml inhalation Q6H PRN (Reason: for wheezing) albuterol sulfate [Ventolin HFA] 90 mcg/actuation HFA aerosol inhaler 2 puff PO Q6H PRN (Reason: for wheezing) cholecalciferol (vitamin D3) 25 mcg (1,000 unit) tablet 25 mcg PO DAILY aspirin 81 mg tablet,delayed release (DR/EC) 81 mg PO DAILY atorvastatin 80 mg tablet 80 mg PO DAILY bupropion HCl 150 mg tablet extended release 24 hr 150 mg PO DAILY lorazepam 1 mg tablet 1 mg PO TID PRN (Reason: Anxiety) naltrexone 50 mg tablet 25 mg PO DAILY quetiapine 100 mg tablet 100 mg PO BEDTIME multivitamin with folic acid [Daily-Sadi (with folic acid)] 400 mcg tablet 1 tab PO DAILY acetaminophen 500 mg tablet 1,000 mg PO Q6H PRN (Reason: Pain) amlodipine 10 mg tablet 10 mg PO DAILY (DME) FreeStyle Lite Strips Strip See Rx Instructions .ROUTE TID Qty: 10 Rx Instructions: As directed (DME) blood-glucose meter [FreeStyle [place] Lite] Kit See Rx Instructions .ROUTE .MEDSUPPLY Qty: 1 Rx Instructions: As directed (DME) lancets [FreeStyle Lancets] 28 gauge misc See Rx Instructions .ROUTE TID Qty: 100 Rx Instructions: As directed gabapentin 600 mg tablet 600 mg PO BID tolterodine 4 mg capsule,extended release 24hr 4 mg PO DAILY 90 Days Qty: 90 1RF testosterone 20.25 mg/1.25 gram (1.62 %) gel in metered-dose pump 2 pump topical DAILY 30 Days Qty: 75 5RF Rx Instructions: apply 2 pumps over max area - alternate shoulders on alternate days Discharge Orders: Discharge Order (Routine); Ordered 01/16/24 Ordered By: India Blake Diet: Advance to usual diet Activity on Discharge: As tolerated Stand Alone Forms: Patient Portal Discharge page Print Language: Tunisian Other Ambulatory Orders: Basic Metabolic Panel (Routine) Timeframe: 1 Week Facility: [facility] - Location: Laboratory Ordered By: India Blake Care Plan Goals: Patient was admitted for nausea vomiting, mild hypokalemia: Patient was started on bowel rest, IV hydration , potassium repleted: Patient seems to be improved significantly. Seen by GI thought to be possible secondary to possible viral gastroenteritis. Patient improved to the baseline, tolerating diet, going home. BNP Follow-up in 1 week. Follow-up outpatient with PCP. Consider outpatient GI. Health Concerns: As above. Plan of Treatment: As above. Assessment: As above.
== END 2024-01-16 14:46 | disposition home or self-care (01) ==
LOC: HO.ED 15:24 → HO.EDOVER 16:19 → HO.S3 19:15
PROVIDERS: Admitting Provider Internal Medicine; Emergency Provider Emergency Medicine; PCP Internal Medicine; Visit Provider Internal Medicine
DX: E87.6 Hypokalemia (principal); R53.1 Weakness; R11.2 Nausea with vomiting, unspecified; R10.9 Unspecified abdominal pain; R19.7 Diarrhea, unspecified; I10 Essential (primary) hypertension; E11.9 Type 2 diabetes mellitus without complications; J44.9 Chronic obstructive pulmonary disease, unspecified; R94.31 Abnormal electrocardiogram [ECG] [EKG]; E78.5 Hyperlipidemia, unspecified; Z79.899 Other long term (current) drug therapy
CPT/HCPCS: 36415; 80048; 80076; 80307; 81001; 82947; 83690; 83735; 84484; 85025; 87507; 93005; 94640; 94660; 96361; 96365; 96366; 96367; 96372; 96375; 96376; 99221; 99285; J1200; J1650; J1790; J2060; J2270; J2405; J2470; J2765; J3475; J3480; J7120

== ENCOUNTER → 2024-01-15 11:15 | Outpatient (BNV) | payer OTHER, SELFPAY | PROVIDERS: Admitting Provider Internal Medicine; Emergency Provider Emergency Medicine; PCP Internal Medicine; Visit Provider Internal Medicine Cardiovascular Disease | DX: R94.31 Abnormal electrocardiogram [ECG] [EKG] (principal) | CPT/HCPCS: 93010 ==

== ENCOUNTER → 2024-01-15 16:12 | Outpatient (BNV) | payer OTHER, SELFPAY | PROVIDERS: Admitting Provider Internal Medicine; Emergency Provider Emergency Medicine; PCP Internal Medicine; Visit Provider Internal Medicine | DX: R11.2 Nausea with vomiting, unspecified (principal) | CPT/HCPCS: 99222; 99239 ==

== ENCOUNTER → 2024-01-15 16:12 | Outpatient (BNV) | payer OTHER, SELFPAY | PROVIDERS: Admitting Provider Internal Medicine; Emergency Provider Emergency Medicine; PCP Internal Medicine; Visit Provider Internal Medicine Gastroenterology | DX: R11.2 Nausea with vomiting, unspecified (principal) | CPT/HCPCS: 99222 ==

== ENCOUNTER 2024-02-04 09:04 | Outpatient (REF) | payer OTHER, SELFPAY ==
[2024-02-04 15:15] LABS: Anion Gap 15 (12-20); Blood Urea Nitrogen 9 mg/dL (9-16); Calcium 9.9 mg/dL (8.4-10.2); Carbon Dioxide 28 mmol/L (22-29); Chloride 101 mmol/L (96-108); Estimated Glomerular Filt Rate 36; Glucose Random 117 mg/dL (60-115); Sodium 140 mmol/L (135-145)
== END 2024-02-04 09:05 | disposition home or self-care (01) ==
LOC: HO.CHCLDS 09:04
PROVIDERS: Visit Provider Internal Medicine
DX: E87.6 Hypokalemia (principal)
CPT/HCPCS: 36415; 80048

== ENCOUNTER 2024-04-20 09:51 | Outpatient (AMB) | payer OTHER, SELFPAY ==
[2024-04-20 10:11] VITALS: BP 94/60; PULSE 55; O2SAT 97; BMI 24.6
--- NOTE | 2024-04-20 10:11 | MHC.OFFVIS ---
Vital Signs 04/20/24 10:11 Height 5 ft 9 in Weight 166 lb 7.184 oz BMI 24.6 BP 94/60 Blood Pressure Location Lt brachial Pulse 55 Pulse Source Pulse Oximeter Pulse Oximetry (%) 97 Oxygen Delivery Method Room Air Intake Visit Reasons: copd Intake Note: pt is here for follow up and he has not used his BIPAP lately, he has a problem with nasal congestion that prohibits him from using the machine at night. Putty Glazer Required: No Allergies No Known Allergies [No Known Allergies*] Allergy (Verified 04/20/24 10:40) Medication List - Last Reconciled 04/20/24 by Tish Girard MD acetaminophen 1,000 mg PO Q6H PRN albuterol sulfate 90 mcg/actuation (Ventolin HFA) 2 puffs PO Q6H PRN amlodipine 10 mg PO DAILY aripiprazole 5 mg PO DAILY aspirin 81 mg PO DAILY atorvastatin 80 mg PO DAILY azelastine 1 spray intranasal BID blood sugar diagnostic (FreeStyle Lite Strips) As directed blood-glucose meter (FreeStyle [place] Lite kit) As directed bupropion HCl XL 150 mg PO DAILY cholecalciferol (vitamin D3) 25 mcg PO DAILY dicyclomine 10 mg PO TIDAC fluoxetine 20 mg PO DAILY fluoxetine 40 mg PO DAILY furosemide 20 mg PO DAILY gabapentin 600 mg PO BID hydroxyzine HCl 25 mg PO DAILY PRN ipratropium-albuterol 0.5 mg-3 mg(2.5 mg base)/3 mL 1.5 mL inhalation Q6H PRN lancets (FreeStyle Lancets) As directed [id number]-swrgymu 36,000-114,000- 180,000 unit (Creon) 1 cap PO TIDAC loperamide 2 mg PO QID PRN lorazepam 1 mg PO TID PRN metoprolol tartrate 25 mg PO BID multivitamin with folic acid 400 mcg (Daily-Sadi (with folic acid)) 1 tab PO DAILY naltrexone 25 mg PO DAILY ondansetron 4 mg PO Q8H PRN potassium chloride ER 10 mEq PO DAILY quetiapine 100 mg PO BEDTIME testosterone 2 pumps topical DAILY 30 days tizanidine 2 mg PO Q8H PRN tolterodine ER 4 mg PO DAILY 90 days trazodone 50 mg PO BEDTIME Trelegy Ellipta 200-62.5-25 mcg (clfnlqrbcmh-bvlnqqkhy-icjdjspb) 1 ea PO DAILY NS Do you need a note to return to daycare/school/sports/work: No HPI HPI copd: Details: THIS 64 YEARS OLD GENTLEMAN IS A CASE OF ADVANCED CHRONIC OBSTRUCTIVE PULMONARY DISEASE, WITH CHRONIC RESPIRATORY FAILURE. HE HAS LONGSTANDING HISTORY OF SMOKING, IN SPITE OF HIS ADVANCED COPD HE IS STILL CONTINUING TO SMOKE, NOW INCREASED TO 10 CIGARETTES A DAY. USES TRELEGY 1 INHALATION DAILY AND RESCUE INHALER ( VENTOLIN ) 2 PUFFS ABOUT TWICE A DAY. RESPIRATORY STATUS HAS REMAINED STABLE WITHOUT ANY ACUTE INFECTION OR EXACERBATION. BUT HE STILL CONTINUES TO GET BOUTS OF COUGH, AND GETS SHORT OF BREATH ON WALKING FAST OR CLIMBING STAIRS. HE IS SUPPOSED TO USE BIPAP FOR HIS CHRONIC HYPERCARBIC RESPIRATORY FAILURE, BUT HAS NOT BEEN ABLE TO USE IT DUE TO ONGOING NASAL CONGESTION AT NIGHT. HIS RESPIRATORY STATUS HAS REMAINED STABLE, HIS RESPIRATORY FAILURE REMAINS UNDER CONTROL. ON HIS LAST VISIT VENOUS BLOOD GASES SHOWED THAT HIS PCO2 WAS 45 . OXYGENATION REMAINS IN NORMAL RANGE. HE HAS CHRONIC NONSPECIFIC PSYCHOTIC DISORDER AND ADHD , WITH ANXIETY AND MOOD CHANGES WHICH MAKES HIM SMOKE MODE CIGARETTES. [facility] Medical History (Updated 04/20/24 @ 10:53 by Tish Girard MD) Respiratory failure with hypercapnia Type 2 diabetes mellitus with unspecified complications History of alcohol use Elevated PSA BPH loc w urin obs/LUTS Allergic rhinitis VIRAJ on CPAP COPD (chronic obstructive pulmonary disease) Surgical History History of back surgery History of back surgery Family History Father HTN (hypertension) Social History Household Members: Other Household Members Other:: 2 Rabbits Alcohol intake: former Patient Tobacco Use Status: Current everyday Tobacco user Tobacco use type: Cigarette Cigarettes Per Day: 6 Years Smoked: 30 +/- Advance Directives Date on File: 01/15/24 Review of Systems Const All systems reviewed & are unremarkable except as noted in HPI and below Eyes Reports no additional complaints ENT Reports nasal congestion Card Reports no additional complaints Resp Reports as per HPI GI Reports no additional complaints Reports no additional complaints Musc Reports no additional complaints Skin/Breast Reports system reviewed and no additional complaints, except as documented Neuro Reports no additional complaints Psych Reports no additional complaints Physical Exam Vital Signs: Last Vital Signs Pulse 55 04/20/24 10:11 BP 94/60 04/20/24 10:11 Pulse Ox 97 04/20/24 10:11 Oxygen Delivery Method Room Air 04/20/24 10:11 BMI result Body Mass Index 24.6 Const General: healthy appearing, comfortable, no acute distress, alert and awake Orientation/consciousness: patient oriented x3 HEENT Head: Yes normal to inspection General nose exam: No nasal polyps present and No nasal discharge present Face and sinus: Yes sinuses nontender Mouth: oropharynx normal Throat: Yes posterior oropharynx normal and Yes other (Poor dental hygiene) Eyes General: appearance normal, both eyes and all related structures Neck Neck: Yes normal visual inspection, Yes no lymphadenopathy, No trachea midline (Trach stoma is healed) and Yes no JVD Thyroid: Thyroid normal Chest Chest palpation & inspection: normal inspection of the chest, normal palpation of entire chest wall and no tenderness Resp Other: Percussion note resonant, breath sounds are slightly distant with prolonged expiratory phase. Lungs are mostly clear except for a few scattered wheezes over the basilar areas. Cardio Palpation: normal PMI Rate: regular rate Rhythm: regular rhythm Heart sounds: no gallops and no murmurs Peripheral pulses: Peripheral pulses 2+ throughout GI Palpation (GI): Soft to palpation, nontender, No hepatosplenomegaly present and no masses Auscultation: normal bowel sounds Back/Spine/Pelvis Thoracic/Lumbar Spine: thoracic and lumbar spine normal to inspection Skin General skin exam: no rashes or lesions noted Neuro General: patient oriented x3 and no focal motor deficits Cranial nerves: Yes CN's II-XII intact bilaterally Extrem General: Yes normal to inspection, Yes no clubbing, cyanosis or edema and Yes no calf tenderness Psych Appearance: grossly normal and well kempt Speech and movement: Normal speech and movement present Assessment & Plan Assessment & Plan (1) COPD (chronic obstructive pulmonary disease): Comment: He is a case of advanced chronic obstructive pulmonary disease. He has had acute on chronic respiratory failure, with hypercapnia. At present his breathing status is quite stable, he remains alert without much distress. Reports having frequent bouts of cough which is secondary to his Continued smoking . Code(s): J44.9 - Chronic obstructive pulmonary disease, unspecified Category: Medical Plan: Continue using Trelegy Ellipta 1 inhalation daily, and Ventolin 2 puffs Q 4-6 hours p.r.n.. Cautioned that he should not use more than once or twice a day. (2) Allergic rhinitis: Comment: Mild, chronic, controlled . Code(s): J30.9 - Allergic rhinitis, unspecified Category: Medical Plan: Continue using Azelastin 1 spray in each nostril at bedtime. (3) Smoking: Comment: He is a long-time smoker, trying to cut down, he is up to 10 cigarettes a day again. Code(s): F17.200 - Nicotine dependence, unspecified, uncomplicated Category: Social Hx Plan: Counseled to stop smoking completely, or for the time being at least cut down the number of cigarettes to no more than 5 per day. Because of his long-term smoking he should be in annual lung screening program for which he is being referred. (4) Respiratory failure with hypercapnia: Comment: On his last admission to the hospital he was treated for acute on chronic respiratory failure, with hypercarbia , he was treated with BiPAP, Advised to use it at home every night but he has been totally noncompliant. Respiratory failure is controlled last blood gas showed pCO2 45. Code(s): J96.92 - Respiratory failure, unspecified with hypercapnia Category: Medical Plan: Does not have to use BiPAP, Advised to do deep breathing exercises with pursed lip technique 3 times a day Also use incentive spirometer at least 3 times a day. Orders: Referrals Lung Cancer Screening Referral F17.200 - Nicotine dependence, unspecified, uncomplicated, J44.9 - Chronic obstructive pulmonary disease, unspecified Coding Level of Care Code Est Pt Level 3 (66043) Diagnoses COPD (chronic obstructive pulmonary disease) J44.9 Allergic rhinitis J30.9 Smoking F17.200 Respiratory failure with hypercapnia J96.92
== END 2024-04-20 10:41 | disposition home or self-care (01) ==
PROVIDERS: PCP Internal Medicine; Visit Provider Internal Medicine
DX: J44.9 Chronic obstructive pulmonary disease, unspecified (principal); J30.9 Allergic rhinitis, unspecified; F17.200 Nicotine dependence, unspecified, uncomplicated; J96.92 Respiratory failure, unspecified with hypercapnia
CPT/HCPCS: 99213

== ENCOUNTER → 2024-04-20 09:51 | Outpatient (BNVA) | payer OTHER, SELFPAY | PROVIDERS: PCP Internal Medicine; Visit Provider Internal Medicine | DX: J44.9 Chronic obstructive pulmonary disease, unspecified (principal); J96.92 Respiratory failure, unspecified with hypercapnia; J30.9 Allergic rhinitis, unspecified; F17.210 Nicotine dependence, cigarettes, uncomplicated | CPT/HCPCS: 99212 ==

== ENCOUNTER 2024-05-15 14:41 | Emergency (ER) | payer OTHER, SELFPAY ==
--- NOTE | ~2024-05-15 | CT_ITS ---
EXAMINATION: CT ABDOMEN AND PELVIS WITHOUT CONTRAST CLINICAL INFORMATION: Pain and diarrhea COMPARISON: None available. TECHNIQUE: Multidetector volumetric imaging was performed from the superior aspect of the liver through the pubic symphysis. Sagittal and coronal reformatted images were obtained on the technologist's workstation. This CT examination was performed using dose optimization techniques as appropriate, variously including the following: *Automated exposure control *Adjustment of mA and/or kV according to patient size (this includes techniques or standardized protocols for targeted exams where dose is matched to indication/reason for exam; i.e. extremities or head) *Use of iterative reconstruction technique DLP: 467 mGy-cm FINDINGS: LUNG BASES: The visualized lung bases are unremarkable. LIVER, GALLBLADDER, AND BILIARY TREE: The liver is normal in size, shape, and attenuation. No focal hepatic lesion or biliary ductal dilatation is present. Tiny stones within the gallbladder lumen without acute inflammatory changes. PANCREAS: Unremarkable. SPLEEN: Unremarkable. ADRENAL GLANDS: Unremarkable. KIDNEYS AND URETERS: Right renal cystic foci with calcifications again noted. No hydronephrosis. BLADDER: Unremarkable. GASTROINTESTINAL TRACT: Scattered diverticula without evidence for diverticulitis or colitis. Terminal ileum unremarkable. No inflammatory changes in the cecal base. ABDOMINAL WALL: No significant hernia is appreciated. LYMPH NODES: Normal. VASCULAR: Unremarkable. PELVIC VISCERA: Unremarkable. OSSEOUS STRUCTURES: Fusion changes lumbar spine intact. Spinal stimulator device lower dorsal spine noted. CT/CT abdomen pelvis wo IV con IMPRESSION: No evidence for any acute inflammatory changes. Incidental findings as above. Fleischner guidelines were followed. Electronically signed by: Valentin Aguilar MD 05/15/2024 09:39 PM JACK
[2024-05-15 14:59] VITALS: BP 130/90; PULSE 85; O2SAT 98
[2024-05-15 15:38] VITALS: BP 116/84; PULSE 80; RESP 22; TEMP 36.5; O2SAT 100; BMI 24.4
--- NOTE | 2024-05-15 15:44 | ED.GENADULT ---
HPI - General Adult General Chief complaint: Abdominal Pain Stated complaint: N/V/D X2D PER EMS Time Seen by Provider: 05/15/24 20:01 Source: patient, EMS and old records reviewed Mode of arrival: EMS Limitations: no limitations History of Present Illness ED Provider: LUDIVINA REYES narrative: 64 yo male with PMH of BPH, GERD, depression, VIRAJ on CPAP, CKD, COPD, ETOH use disorder, HTN, PAF, hypokalemia here with c/o 3 days of feeling cold, then started with n/v/d which did stop today. He has abdominal cramps. He denies any fevers, food exposures, travel, recent antibiotics. He reports he has had the same thing before. He is very anxious and shaky on arrival but states no ETOH in 14 months MD complaint: n/v/d Onset (ago): day(s) (3) Location: abdomen Radiation: non-radiation Severity: moderate Quality: aching Pain Consistency: intermittent Relieving factors: none Exacerbating factors: eating Associated symptoms: fever/chills, malaise and nausea/vomiting Treatments prior to arrival: none Related Data Home Medications ?Medication ?Instructions ?Recorded ?Confirmed aspirin 81 mg tablet,delayed 81 mg PO DAILY 09/02/20 04/20/24 release atorvastatin 80 mg tablet 80 mg PO DAILY 09/02/20 04/20/24 cholecalciferol (vitamin D3) 25 25 mcg PO DAILY 09/02/20 04/20/24 mcg (1,000 unit) tablet lorazepam 1 mg tablet 1 mg PO TID PRN Anxiety 03/28/21 04/20/24 bupropion HCl 150 mg 24 hr tablet, 150 mg PO DAILY 08/25/21 04/20/24 extended release multivitamin with folic acid 400 1 tab PO DAILY 11/05/21 04/20/24 mcg tablet (Daily-Sadi (with folic acid)) quetiapine 100 mg tablet 100 mg PO BEDTIME 11/05/21 04/20/24 acetaminophen 500 mg tablet 1,000 mg PO Q6H PRN Pain 11/18/21 04/20/24 naltrexone 50 mg tablet 25 mg PO DAILY 02/19/22 04/20/24 amlodipine 10 mg tablet 10 mg PO DAILY 05/19/22 04/20/24 blood sugar diagnostic (Brian #10 ea 05/19/22 04/20/24 Lite Strips) blood-glucose meter (FreeStyle #1 ea 05/19/22 04/20/24 Kendall Lite kit) lancets 28 gauge (FreeStyle #100 ea 05/19/22 04/20/24 Lancets) gabapentin 600 mg tablet 600 mg PO BID 06/18/22 04/20/24 albuterol sulfate 90 mcg/actuation 2 puff PO Q6H PRN for wheezing 01/15/24 04/20/24 aerosol inhaler (Ventolin HFA) aripiprazole 5 mg tablet 5 mg PO DAILY 01/15/24 04/20/24 dicyclomine 10 mg capsule 10 mg PO TIDAC 01/15/24 04/20/24 fluoxetine 20 mg capsule 20 mg PO DAILY 01/15/24 04/20/24 fluoxetine 40 mg capsule 40 mg PO DAILY 01/15/24 04/20/24 furosemide 20 mg tablet 20 mg PO DAILY 01/15/24 04/20/24 hydroxyzine HCl 25 mg tablet 25 mg PO DAILY PRN Anxiety 01/15/24 04/20/24 ipratropium 0.5 mg-albuterol 3 mg 1.5 ml inhalation Q6H PRN for 01/15/24 04/20/24 (2.5 mg base)/3 mL nebulization wheezing soln uigqcg-tnvvefev-bsvohoh 1 cap PO TIDAC 01/15/24 04/20/24 36,000-114,000-180,000 unit capsule,delay rel (Creon) loperamide 2 mg capsule 2 mg PO QID PRN Diarrhea 01/15/24 04/20/24 ondansetron 4 mg disintegrating 4 mg PO Q8H PRN Nausea And Vomiting 01/15/24 04/20/24 tablet tizanidine 2 mg tablet 2 mg PO Q8H PRN muscle spasm 01/15/24 04/20/24 trazodone 50 mg tablet 50 mg PO BEDTIME 01/15/24 04/20/24 Previous Rx's ?Medication ?Instructions ?Recorded metoprolol tartrate 25 mg tablet 25 mg PO BID #180 tabs 06/23/23 Trelegy Ellipta 200 mcg-62.5 1 ea PO DAILY #60 ea 12/10/23 mcg-25 mcg powder for inhalation (sriryjkbclp-vnzxsodjg-ompwldjv) testosterone 2 pump topical DAILY 30 days #75 12/30/23 grams tolterodine 4 mg capsule,extended 4 mg PO DAILY 90 days #90 caps 12/30/23 release 24 hr potassium chloride 10 mEq 10 meq PO DAILY #3 caps 01/16/24 capsule,extended release azelastine 137 mcg (0.1 %) nasal 1 spray intranasal BID #90 mL 04/17/24 spray ondansetron 4 mg disintegrating 4 mg PO Q8H PRN nausea and 05/15/24 tablet vomiting #20 tabs Allergies Allergy/AdvReac Type Severity Reaction Status Date / Time No Known Allergies Allergy Verified 05/15/24 15:39 [No Known Allergies*] Review of Systems Review of Systems: Constitutional : No Weight loss, No Fever, pos Chills ENT/Mouth : No sore throat, No Rhinorrhea Eyes: No Swelling, No Redness Cardiovascular : No Chest Pain, No SOB, NoEdema Respiratory : No Cough, No Sputum, No Wheezing Gastrointestinal : Positive Nausea, Positive Vomiting, positive Diarrhea, positive abdominal Pain, No Hematochezia, No Melena Genitourinary : No Dysuria, No Urinary Frequency, No Hematuria, No Urgency Musculoskeletal : No joint pain, No Myalgias, No Joint Swelling Skin : No Skin Lesions, No rash Neuro : No Weakness, No Numbness, No Dizziness, No Headache All other systems reviewed and are negative. [facility] Past Medical History Attestation statement: The following information was validated with the patient. Source: old records reviewed Medical History Essential hypertension Nicotine dependence, cigarettes, uncomplicated Respiratory failure with hypercapnia Type 2 diabetes mellitus with unspecified complications History of alcohol use Elevated PSA BPH loc w urin obs/LUTS Allergic rhinitis VIRAJ on CPAP COPD (chronic obstructive pulmonary disease) Surgical History History of back surgery History of back surgery Family History Family History Father HTN (hypertension) Social History Social History Household Members: Other Household Members Other:: 2 Rabbits Alcohol intake: former Patient Tobacco Use Status: Current everyday Tobacco user Tobacco use type: Cigarette Cigarettes Per Day: 6 Years Smoked: 30 +/- Smoked in Last 30 Days: No Use of substances other than those prescribed or required for medical reasons: No Advance Directives: Yes Advance Directives on File: Yes Advance Directives Date on File: 01/15/24 Do you have a plan to hurt others: No Plan Physical Exam ED Vital Signs: Vital Signs - 24 hr 05/15/24 15:38 05/15/24 18:30 05/15/24 20:11 Temperature 97.7 F 97.4 F 97.6 F Pulse Rate 80 76 72 Respiratory Rate 22 H 20 16 Blood Pressure 116/84 139/88 129/87 Pulse Oximetry 100 100 99 Oxygen Delivery Method Room Air Room Air Room Air 05/15/24 22:21 Temperature 97.6 F Pulse Rate 72 Respiratory Rate 16 Blood Pressure 129/87 Pulse Oximetry 99 Oxygen Delivery Method Room Air BMI result Body Mass Index 24.4 Appearance: Alert. Oriented X3. No acute distress. tremulous and anxious Eyes: Pupils equal, round and reactive to light. ENT: Pharynx mildly dry MM Neck: Normal inspection. Neck supple. CVS: Normal heart rate and rhythm. Pulses normal. Respiratory: No respiratory distress. Breath sounds normal. Abdomen: Soft and nontender. no grimace with palpation Skin: Skin warm and dry. Normal skin color. Normal skin turgor. Extremities: No lower extremity edema. Neuro: Oriented X 3. No motor deficit. No sensory deficit. Course Course Course Narrative: RME: 63-year-old male presents to ED for diarrhea, lower abdominal cramping, chills, and fevers. Vital signs stable. Labs UA ordered. Reevaluation(s) Reevaluation #1: tolerating crackers and [place], looks much better at this time in ED x 7 hours no vomiting or diarrhea Medications Administered Discontinued Medications Generic Name Dose Route Start Last Admin Trade Name Freq PRN Reason Stop Dose Admin Lactated Ringer's 1,000 mls @ 999 mls/hr 05/15/24 20:10 05/15/24 21:26 Lr IV 05/15/24 21:10 Infused .Q1H1M ONE Infusion Lorazepam 1 mg 05/15/24 20:10 05/15/24 20:28 Lorazepam 2 Mg/Ml Vial IVPUSH 12/09/24 20:11 1 mg ONCE ONE Administration Metoclopramide HCl 10 mg 05/15/24 20:10 05/15/24 20:28 Metoclopramide Hcl 10 Mg/2 Ml Vial IVPUSH 05/15/24 20:11 10 mg ONCE ONE Administration Medical Decision Making Medical Decision Making [facility] Narrative: 64 yo male with PMH of BPH, GERD, depression, VIRAJ on CPAP, CKD, COPD, ETOH use disorder, HTN, PAF, hypokalemia here with c/o n/v/d and abdominal cramps though admits that the n/v/d did stop today at this time will need basic labs, CT scan ordered for pancreatitis/colitis, IV ativan and reglan ordered for n/v. Differential Diagnosis Differential Diagnoses: The differential diagnosis associated with the presentation includes dehydration, lyte abnormality, pancreatitis, n/v/d Admission/Observation Consideration of admission/observation: Escalation of care including admission/observation considered CT scan negative, labs reassuring tolerating PO no v/d today VS stable Lab Data [facility] Lab Attestation statement: I reviewed the patient's lab results. 05/15/24 15:48 05/15/24 15:48 Labs: Lab Results 05/15/24 Range/Units 15:48 WBC 7.6 (4.8-10.8) X10*3/uL RBC 5.56 (4.60-5.80) X10*6/uL Hgb 15.3 (14.0-18.0) g/dl Hct 46.3 (42.0-52.0) % MCV 83.3 (80.0-98.0) fL MCH 27.5 (27.0-33.0) pg MCHC 33.0 (31.0-36.0) g/dl RDW 14.3 (11.0-16.0) % Plt Count 194 D (160-400) X10*3/uL MPV 9.9 (9.4-12.4) fL Immature Gran % (Auto) 0.1 (0.0-0.4) % Neut % (Auto) 62.9 (45-73) % Lymph % (Auto) 26.3 (20-40) % [place] % (Auto) 6.7 (2-11) % Eos % (Auto) 3.3 (0-4) % Baso % (Auto) 0.7 (0-2) % Lymph # (Auto) 2.0 (1.2-4.9) X10*3/uL [place] # (Auto) 0.5 (0.1-1.2) X10*3/uL Eos # (Auto) 0.3 (0.0-0.4) X10*3/uL Baso # (Auto) 0.1 (0.0-0.2) X10*3/uL Abs Immat Gran (auto) 0.01 (0.00-0.03) X10*3/uL Absolute Neuts (auto) 4.8 (2.0-8.3) x10*3/uL Absolute Nucleated RBC 0.000 (0.0-0.012) X10*3/uL Nucleated RBC % (auto) 0.0 (0.0-0.2) /100WBC Sodium 139 (135-145) mmol/L Potassium 3.7 (3.3-5.1) mmol/L Chloride 104 (96-108) mmol/L Carbon Dioxide 23 (22-29) mmol/L Anion Gap 16 (12-20) BUN 13 (9-16) mg/dL Creatinine 1.99 H (0.5-1.4) mg/dL Estim Creat Clear Calc 37.9 Estimated GFR 34 Random Glucose 96 (60-115) mg/dL Calcium 10.6 H D (8.4-10.2) mg/dL Magnesium 2.1 (1.6-2.6) mg/dL Total Bilirubin 0.7 (0.0-1.0) mg/dL AST 27 (5-37) U/L ALT 22 (0-40) U/L Alkaline Phosphatase 73 (39-117) U/L Total Protein 7.1 (6.5-8.0) g/dL Albumin 4.3 (3.5-5.0) g/dL Lipase 78 (8-78) U/L Ethyl Alcohol < 10 mg/dL Influenza Type A (PCR) NEGATIVE (Negative) Influenza Type B (PCR) NEGATIVE (Negative) RSV RNA Qual (PCR) NEGATIVE (Negative) SARS-CoV-2 RNA (RT-PCR) NEGATIVE (Negative) Independent Interpretation I performed an independent interpretation of an: EKG and CT Scan (normal ) Interpretation: Rate: 58 Rhythm: sinus bradycardia [place]: normal Normal P waves. Normal RICHY. Normal QRS complex. ST T wave : inverted t waves inf and lateral with nonspecific ST T wave changes qTC: 398 prior studies:no sig change from priors The study has been interpreted contemporaneously by me. . Radiology Impression Discussion of test interpretation with radiology: I have reviewed the radiologist's reading. External Record Review External record reviewed: Inpatient record Prescription Management I considered prescription management with: Other Discharge Plan Discharge Clinical Impression: Nausea vomiting and diarrhea Patient Disposition: Home, Self-Care Instructions: Acute Nausea and Vomiting (ED), Acute Diarrhea (ED), Acute Abdominal Pain (ED) Additional Instructions: your labs are reassuring your CT scan is normal please return for any worsening symptoms or concerns stay hydrated and eat a bland diet over 48 hours then advance slowly follow up with your doctor or GI doctor as needed Prescriptions: New ondansetron 4 mg tablet,disintegrating 4 mg PO Q8H PRN (Reason: nausea and vomiting) Qty: 20 0RF No Action metoprolol tartrate 25 mg tablet 25 mg PO BID Qty: 180 5RF Trelegy Ellipta 200-62.5-25 mcg blister with device 1 ea PO DAILY Qty: 60 3RF azelastine 137 mcg (0.1 %) spray,non-aerosol 1 spray intranasal BID Qty: 90 0RF fluoxetine 40 mg capsule 40 mg PO DAILY Rx Instructions: with 20 mg; tdd 60 mg tizanidine 2 mg tablet 2 mg PO Q8H PRN (Reason: muscle spasm) loperamide 2 mg capsule 2 mg PO QID PRN (Reason: Diarrhea) trazodone 50 mg tablet 50 mg PO BEDTIME hydroxyzine HCl 25 mg tablet 25 mg PO DAILY PRN (Reason: Anxiety) ondansetron 4 mg tablet,disintegrating 4 mg PO Q8H PRN (Reason: Nausea And Vomiting) fluoxetine 20 mg capsule 20 mg PO DAILY Rx Instructions: with 40 mg; tdd 60 mg dicyclomine 10 mg capsule 10 mg PO TIDAC aripiprazole 5 mg tablet 5 mg PO DAILY Creon 36,000-114,000- 180,000 unit capsule,delayed release(DR/EC) 1 cap PO TIDAC furosemide 20 mg tablet 20 mg PO DAILY ipratropium-albuterol 0.5 mg-3 mg(2.5 mg base)/3 mL solution for nebulization 1.5 ml inhalation Q6H PRN (Reason: for wheezing) albuterol sulfate [Ventolin HFA] 90 mcg/actuation HFA aerosol inhaler 2 puff PO Q6H PRN (Reason: for wheezing) potassium chloride 10 mEq capsule, extended release 10 meq PO DAILY Qty: 3 0RF cholecalciferol (vitamin D3) 25 mcg (1,000 unit) tablet 25 mcg PO DAILY aspirin 81 mg tablet,delayed release (DR/EC) 81 mg PO DAILY atorvastatin 80 mg tablet 80 mg PO DAILY bupropion HCl 150 mg tablet extended release 24 hr 150 mg PO DAILY lorazepam 1 mg tablet 1 mg PO TID PRN (Reason: Anxiety) naltrexone 50 mg tablet 25 mg PO DAILY quetiapine 100 mg tablet 100 mg PO BEDTIME multivitamin with folic acid [Daily-Sadi (with folic acid)] 400 mcg tablet 1 tab PO DAILY acetaminophen 500 mg tablet 1,000 mg PO Q6H PRN (Reason: Pain) amlodipine 10 mg tablet 10 mg PO DAILY (DME) FreeStyle Lite Strips Strip See Rx Instructions .ROUTE TID Qty: 10 Rx Instructions: As directed (DME) blood-glucose meter [FreeStyle Kendall Lite] Kit See Rx Instructions .ROUTE .MEDSUPPLY Qty: 1 Rx Instructions: As directed (DME) lancets [FreeStyle Lancets] 28 gauge misc See Rx Instructions .ROUTE TID Qty: 100 Rx Instructions: As directed gabapentin 600 mg tablet 600 mg PO BID tolterodine 4 mg capsule,extended release 24hr 4 mg PO DAILY 90 Days Qty: 90 1RF testosterone 20.25 mg/1.25 gram (1.62 %) gel in metered-dose pump 2 pump topical DAILY 30 Days Qty: 75 5RF Rx Instructions: apply 2 pumps over max area - alternate shoulders on alternate days Interventions: ED Discharge Assessment Last Done: 05/15/24 22:21 Discharge Date/Time: 05/15/24 22:22 Print Language: Sudanese
[2024-05-15 15:52] LABS: MANUAL DIFF FLAG NO
[2024-05-15 15:54] LABS: Basophils Absolute Auto 0.1 X10*3/uL (0.0-0.2); Basophils Percent Auto 0.7 % (0-2); Eosinophils Absolute Auto 0.3 X10*3/uL (0.0-0.4); Eosinophils Percent Auto 3.3 % (0-4); Hematocrit 46.3 % (42.0-52.0); Hemoglobin 15.3 g/dl (14.0-18.0); Imm Gran Abs Auto 0.01 X10*3/uL (0.00-0.03); Imm Gran Pct Auto 0.1 % (0.0-0.4); Lymphocytes Percent Auto 26.3 % (20-40); Mean Corpuscular Hemoglobin 27.5 pg (27.0-33.0); Mean Corpuscular Volume 83.3 fL (80.0-98.0); Mean Platelet Volume 9.9 fL (9.4-12.4); Monocytes Absolute Auto 0.5 X10*3/uL (0.1-1.2); Monocytes Percent Auto 6.7 % (2-11); Neutrophils Absolute Auto 4.8 x10*3/uL (2.0-8.3); Neutrophils Percent Auto 62.9 % (45-73); Platelet Count 194 X10*3/uL (160-400); Red Blood Count 5.56 X10*6/uL (4.60-5.80); Red Cell Distribution Width 14.3 % (11.0-16.0); White Blood Count 7.6 X10*3/uL (4.8-10.8)
[2024-05-15 16:15] LABS: Albumin Level 4.3 g/dL (3.5-5.0); Anion Gap 16 (12-20); Aspartate Amino Transferase 27 U/L (5-37); Bilirubin Total 0.7 mg/dL (0.0-1.0); Blood Urea Nitrogen 13 mg/dL (9-16); Calcium 10.6 mg/dL (8.4-10.2); Carbon Dioxide 23 mmol/L (22-29); Chloride 104 mmol/L (96-108); Creatinine Clr Calc Pharmacy 37.9; Estimated Glomerular Filt Rate 34; Glucose Random 96 mg/dL (60-115); Lipase 78 U/L (8-78); Potassium 3.7 mmol/L (3.3-5.1); Sodium 139 mmol/L (135-145); Total Protein 7.1 g/dL (6.5-8.0)
[2024-05-15 16:20] LABS: Alanine Aminotransferase 22 U/L (0-40); Alkaline Phosphatase 73 U/L (39-117)
[2024-05-15 16:35] LABS: Influenza A PCR NEGATIVE (Negative); Influenza B PCR NEGATIVE (Negative); Resp Syncy Virus RNA Qual PCR NEGATIVE (Negative); SARS COV2 PCR INHOUSE NEGATIVE (Negative)
[2024-05-15 18:30] VITALS: BP 139/88; PULSE 76; RESP 20; TEMP 36.3; O2SAT 100
--- NOTE | 2024-05-15 20:06 | ECG_ITS ---
Test Reason : n/v Blood Pressure : / mmHG Vent. Rate : 058 BPM Atrial Rate : 058 BPM P-R Int : 168 ms QRS Dur : 080 ms QT Int : 406 ms P-R-T Axes : 042 050 266 degrees QTc Int : [address] & T wave abnormality, consider anterolateral ischemia Abnormal ECG When compared with ECG of 15-JAN-2024 15:11, Premature ventricular complexes are no longer Present Referred By: Marla Ledbetter Electronically Signed By:GUERA DEDY MD
[2024-05-15 20:11] VITALS: BP 129/87; PULSE 72; RESP 16; TEMP 36.4; O2SAT 99
[2024-05-15 20:25] LABS: Ethanol < 10 mg/dL; Magnesium 2.1 mg/dL (1.6-2.6)
[2024-05-15] MEDS: LORazepam 2 MG/ML VIAL 1 MG IVPUSH (20:28)
[2024-05-15] MEDS: Metoclopramide HCl 10 MG/2 ML VIAL IVPUSH (20:28)
[2024-05-15] MEDS: Lactated Ringers 1,000 ML 999 ML IV (20:29)
[2024-05-15 22:21] VITALS: BP 129/87; PULSE 72; RESP 16; TEMP 36.4; O2SAT 99
--- OUTSIDE RECORDS SUMMARY | 2024-05-17 18:11 | XMS_ITS | Data Portability ---
Author Organization [employer] [employer] in - App[employer] Address [address] [place] [id number] Care Team Providers Care Data Sme Name Role Phone [facility] OTHER [facility] OTHER Assessment Encounter Date Assessment Date Assessment LastModified by Organization Details LastModified Time 08/19/2022 08/19/2022 I have reviewed and agree with the assessment and plan as documented by the streetsweeper operator. I provided real time medical direction for this encounter and was immediately available to provide additional phone based assistance as needed. History as noted by streetsweeper operator. Pt with history of alcoholic gastritis, AUD in remission, CKD, Afib not on AC. Pt reports 5 days of RUQ abdominal pain. Pt has been waxing and waning and improves after he takes tylenol. Pain does not radiate to back and does not worsen with eating. He is eating and drinking fluids normally. No nausea, vomiting, diarrhea, or melena. No fevers or chills. Pt denies any pain currently. On exam, pt awake and alert in no distress. Abdomen soft and non tender. Vitals normal. Impression: Pt with 5 days of intermittent RUQ abdominal pain that is not exacerbated by food and seems to improve after pt takes tylenol. No vomiting or fevers. Pt has no pain currently and his abdomen is soft and non tender. He is afebrile. Pt will need abdominal imaging including abdominal ultrasound to assess for biliary disease in addition to abdomen/pelvic CT scan if the u/s is non diagnostic. This is d/w the pt. Primary care team needs to contact the pt and arrange for him to have outpatient imaging. Pt is told that he needs to seek medical attention right away if he develops recurrent abdominal pain that is persisting or worsening or if he develops any vomiting or fevers. btils Not available 08/19/2022 15:08:26 12/14/2023 12/14/2023 I have reviewed and agree with the assessment and plan as documented by the streetsweeper operator. I provided real-time medical direction for this encounter and was immediately available to provide additional phone-based assistance as needed. History as noted in EMR and by streetsweeper operator. I would add / emphasize: Patient with history of fluid retention on Lasix is seen for bilateral lower extremity edema. Denies chest pain or shortness of breath. Unclear history of degree of CHF/CKD. Reports he was taken from twice daily Lasix to once a day Lasix due to kidney function . AVSS and well-appearing with blood pressure at baseline per report saturating well on room air. Afebrile. BMP demonstrates Creatinine of 2 without elevated BUN or other acute metabolic abnormalities. Patient reports he can have follow-up visit on Wednesday with PCP. Advised going back to 40 mg twice daily of Lasix, lower extremity elevation, and close PCP evaluation on Wednesday for consideration of further labs and additional Lasix dosing. Red flags for ED presentation discussed and patient in agreement with plan. pallfather Not available 12/14/2023 15:50:35 Plan of Treatment Reminders Order Date Submit Date Provider Last Modified By Organization Details Last Modified Time Details Appointments None recorded . Lab BMP, serum or plasma 024 12/14/19 24 [facility], [address] [place] [address], [id number], 4 08:56:22 Referral None recorded . Procedures None recorded . Surgeries None recorded . Imaging None recorded . Medication Orders None recorded . Patient TargetsNo targets recorded. Patient InstructionsNo instructions recorded. Reason for Referral None Reported. Results Created Date Observation Date Name Description Value Unit Range Abnormal Flag Note LastModifiedBy Organization Detail LastModifiedTime Result Notes None recorded. Medical Equipment None Reported. Medications Name Sig Start Date Stop Date Status Note LastModified by Organization Details LastModified Time tetracycline 500 mg capsule TAKE 1 CAPSULE BY MOUTH EVERY 6 HOURS FOR 14 DAYS active Not Available Not Available No t Available fluoxetine 40 mg capsule TAKE 1 CAPSULE BY MOUTH EVERY DAY active Not Available Not Available No t Available furosemide 40 mg tablet TAKE 1 TABLET (40 MG TOTAL) BY MOUTH IN THE MORNING AND 1 TABLET (40 MG TOTAL) IN THE EVENING. active Not Available Not Available No t Available diphenhydram ine 12.5 mg/5 mL oral liquid PLEASE SEE ATTACHED FOR DETAILED DIRECTIONS active Not Available Not Available N ot Available atorvastatin 80 mg tablet TAKE 1 TABLET (80 MG) BY MOUTH IN THE MORNING active Not Available Not Available Not Available prednisone 10 mg tablet TAKE 4 TABLETS EVERY DAY FOR 2 DAYS, THEN 3 TABS X2 DAYS, THEN 2 TABS X2 DAYS, THEN 1 TAB X2 DAYS active Not Available Not Available No t Available gabapentin 600 mg tablet TAKE 1 TABLET BY MOUTH 2 TIMES DAILY active Not Available Not Available Not Available ipratropium 0.5 mg-albuterol 3 mg (2.5 mg base)/3 mL nebulization soln INHALE 1 VIAL VIA NEBULIZER EVERY 4 TO 6 HOURS NEEDED FOR WHEEZING active Not Available Not Available No t Available nabumetone 750 mg tablet TAKE 1 TABLET BY MOUTH TWICE A DAY NEEDED FOR PAIN active Not Available Not Available No t Available Lidocaine Viscous 2 % mucosal solution PLEASE SEE ATTACHED FOR DETAILED DIRECTIONS active Not Available Not Available N ot Available naltrexone 50 mg tablet TAKE 1/2 TABLET BY MOUTH EVERY DAY active Not Available Not Available No t Available FreeStyle Lancets 28 gauge TAKE 1 DROP BY MISC.(NON-D RUG COMBO) ROUTE 3 TIMES EVERY DAY active Not Available Not Available No t Available prednisone 5 mg tablet TAKE 1 TABLET BY MOUTH DAILY NEEDED FOR MAINTENANCE active Not Available Not Available Not Available metronidazol e 250 mg tablet TAKE 1 TABLET BY MOUTH 4 TIMES A DAY FOR 14 DAYS active Not Available Not Available Not Available amlodipine 5 mg tablet TAKE 1 TABLET BY MOUTH EVERY DAY active Not Available Not Available No t Available aspirin 81 mg tablet,delay ed release TAKE 1 TABLET BY MOUTH EVERY DAY active Not Available Not Available No t Available quetiapine 100 mg tablet TAKE 2 TABLETS BY MOUTH EVERY DAY AT NIGHT active Not Available Not Available No t Available acetaminophe n 500 mg tablet TAKE 2 TABLET BY ORAL ROUTE EVERY 4 - 6 HOURS NEEDED NOT TO EXCEED 8 TABLETS PER 24HRS active Not Available Not Available No t Available acetaminophe n ER 650 mg tablet,exten ded release PLEASE SEE ATTACHED FOR DETAILED DIRECTIONS active Not Available Not Available N ot Available potassium chloride ER 20 mEq tablet,exten ded release(part /cryst) TAKE 1 TABLET BY MOUTH EVERY DAY active Not Available Not Available No t Available gabapentin 800 mg tablet TAKE 1 TABLET BY MOUTH THREE TIMES A DAY active Not Available Not Available Not Available amlodipine 10 mg tablet TAKE 1 TABLET BY MOUTH EVERY DAY active Not Available Not Available No t Available omeprazole 20 mg capsule,olya yed release TAKE 1 CAPSULE BY MOUTH TWICE A DAY FOR 14 DAYS active Not Available Not Available No t Available lorazepam 1 mg tablet TAKE 1 TABLET BY MOUTH THREE TIMES A DAY NEEDED FOR SEVERE ANXIETY active Not Available Not Available No t Available azelastine 137 mcg (0.1 %) nasal spray USE 1 SPRAY INTRANASALL Y 2 TIMES A DAY active Not Available Not Available No t Available albuterol sulfate HFA 90 mcg/actuatio n aerosol inhaler TAKE 2 PUFFS BY MOUTH EVERY 4 TO 6 HOURS NEEDED FOR SHORTNESS OF BREATH OR WHEEZING FOR 30 DAYS active Not Available Not Available Not Available fluoxetine 20 mg capsule TAKE 1 CAPSULE BY MOUTH ONCE A DAY WITH 40MG TO EQUAL 60MG active Not Available Not Available N ot Available oxycodone 5 mg tablet TAKE1 TABLET BY MOUTH EVERY BEDTIME DO NOT DRIVE WHILE TAKING THIS MEDICATION active Not Available Not Available N ot Available Stomach Relief 262 mg tablet CHEW 2 TABLETS BY MOUTH 4 TIMES A DAY FOR 14 DAYS active Not Available Not Available Not Available Stomach Relief 262 mg chewable tablet CHEW 2 TABLETS BY MOUTH 4 TIMES A DAY FOR 14 DAYS active Not Available Not Available Not Available Vitamin D3 25 mcg (1,000 unit) tablet TAKE 1 TABLET BY MOUTH DAILY active Not Available Not Available Not Available bupropion HCl XL 300 mg 24 hr tablet, extended release TAKE 1 TABLET BY MOUTH EVERY DAY active Not Available Not Available No t Available bupropion HCl XL 150 mg 24 hr tablet, extended release TAKE 1 TABLET BY MOUTH EVERY MORNING ALONG WITH 300 MG TABS FOR TOTAL OF 450 MG active Not Available Not Available No t Available tadalafil 5 mg tablet TAKE 1 TABLET 1 HOUR BEFORE SEXUAL RELATIONS ONCE DAILY NEEDED. active Not Available Not Available N ot Available tadalafil 10 mg tablet TAKE 1 TABLET 1 HOUR BEFORE SEXUAL RELATIONS ONCE DAILY NEEDED. active Not Available Not Available N ot Available tadalafil 20 mg tablet TAKE ONE TABLET BY MOUTH ONCE DAILY NEEDED FOR SEXUAL ACTIVITY. TAKE 30 MINUTES BEFORE SEXUAL ACTIVITY DO NOT EXCEED ONE TABLET IN 24 HOURS active Not Available Not Available Not Available Alcohol Prep Pads USE 3 TIMES A DAY active Not Available Not Available No t Available metoprolol tartrate 25 mg tablet TAKE 1 TABLET BY MOUTH TWICE A DAY active Not Available Not Available No t Available Antacid Plus Anti-Gas 400 mg-400 mg-40 mg/5 mL oral suspension PLEASE SEE ATTACHED FOR DETAILED DIRECTIONS active Not Available Not Available N ot Available sodium fluoride 1.1 % dental paste PLEASE SEE ATTACHED FOR DETAILED DIRECTIONS active Not Available Not Available N ot Available quetiapine 50 mg tablet TAKE 1 TABLET BY MOUTH EVERY DAY NEEDED active Not Available Not Available No t Available [place] 0.025 % (0.035 %) eye drops INSTIL 1 DROP INTO AFFECTED EYE TWICE A DAY active Not Available Not Available No t Available FreeStyle Lite Strips TEST 3 TIMES A DAY active Not Available Not Available Not Available FreeStyle [place] Lite kit TAKE 1 DROP BY SUBCUTANEOU S ROUTE 3 TIMES EVERY DAY active Not Available Not Available No t Available testosterone 20.25 mg/1.25 gram per pump act.(1.62 %) transdermal gel APPLY 2 PUMPS DAILY OVER MAX AREA. ALTERNATE SHOULDERS ON ALTERNATE DAYS active Not Available Not Available No t Available Jardiance 25 mg tablet TAKE 1 TABLET BY MOUTH EVERY DAY IN THE MORNING active Not Available Not Available No t Available Trelegy Ellipta 200 mcg-62.5 mcg-25 mcg powder for inhalation INHALE 1 PUFF BY MOUTH DAILY active Not Available Not Available Not Available Daily-Sadi (with folic acid) 400 mcg tablet TAKE 1 TABLET BY MOUTH EVERY DAY active Not Available Not Available No t Available Vitals Date Recorded Heart rate Oxygen saturation Oxygen saturation in Arterial blood by Pulse oximetry Body height Respiratory rate Body temperature Body weight Systolic blood pressure Diastolic blood pressure Provider Name and Address Organization Details Last Updated DateTime 4 68 /min 97 % 97 % 175.26 cm 16 /min 97.9 [degF] 08720.6 16 g 107 mm[Hg] 64 mm[Hg] Not Available [employer] 4 15:12:09 Date Recorded Heart rate Oxygen saturation Oxygen saturation in Arterial blood by Pulse oximetry Body temperature Respiratory rate Oxygen saturation Oxygen saturation in Arterial blood by Pulse oximetry Respiratory rate Body temperature Heart rate Systolic blood pressure Diastolic blood pressure Systolic blood pressure Diastolic blood pressure Provider Name and Address Organization Details Last Updated DateTime 3 75 /min 97 % 97 % 98.5 [degF] 16 /min 97 % 97 % 16 /min 98.5 [degF] 75 /min 115 mm[Hg] 70 mm[Hg] 115 mm[Hg] 70 mm[Hg] Not Available [employer] 3 12:16:25 Social History None recorded. Functional Status None recorded. Mental Status None recorded. Family History Nothing Reported. Medical History No medical history recorded. Past Encounters Encounter ID Performer Location Encounter Start Date Encounter Closed Date Diagnosis/Indication Diagnosis SNOMED-CT Code Diagnosis ICD10 Code [id number] Damian Urrutia MD [facility] - [address] [phone] 08/19/2022 12:02:34 08/21/2022 10:58:22 Right upper quadrant pain 283655547 R10.11 [id number] Augustus Osorio MD Main - [address] [address] 12/14/2023 15:11:59 12/14/2023 17:08:41 Edema of lower extremity 851197339 R60.0 Health Concerns Section Related Observation LastModified by Organization Detai ls LastModified Time None Recorded Concern Status LastModified by Organization Details LastModified Time None Recorded Advance Directives Directive None Recorded Payers Encounter Date Sequence Insurance Name Policy Number Policy De La Vega Covered Member ID De La Vega Member ID Guarantor Name 08/19/2022 1 [facility] - DOS PRIOR TO 2022 - DUAL ELIGIBLE (MEDICARE REPLACEMENT/ADV ANTAGE - HMO) Po Bower [id number] Po Engle Rollsaurabh 12/14/2023 1 [facility] - DOS ON OR AFTER 2022 - DUAL ELIGIBLE - LONGTERM OPTIONS AND ONE CARE (MEDICARE REPLACEMENT/ADV ANTAGE - HMO) Po Bower [id number] Po Bower Notes Date Note Type Note Provider Name and Address Organization Details Recorded Time 08/19/2022 text/html This was a supervised home visit with streetsweeper operator Keysha Valentin. HPI: 62 y.o. M c/o pain in RUQ starting 5 days ago, denying any falls, trauma to abd or increased activity prior. Pain is now 4/10, worsened by pressure such as laying on R side or palpating under ribcage, which brings pain up to 8/10. He also c/o increased pain w/ deep breaths, but denies sob. No recent cough, N/V/D, change in stool appearance or fevers. Only other c/o is fatigue. Mbr still has his gallbladder. Eating does not worsen this pain. He denies any hx of liver issues. Mbr has [facility] and Kimmy visiting nurse was there requesting home visit for eval. Mbr agreed to [facility] eval, but was also asked to call his PCP to make them aware and inquire about radiological testing, as [facility] does not have this capability. He and visiting nurse agreed to call PCP. Mbr was advised to go to ER if pain becomes more severe and was also made aware he can call the [facility] 28/12 for any changes. NKDA. 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 ................... ................... ................... ................... ................... ................... ............. CRC Nursing Assessment: Comments: Spoke with member aware visit placed for 08/19/22 plan to cont with Tylenol with fair effect. Discuss if symptom progress to seek more emergent care/911-Verbalize understanding. Verify member identity name/- ................... ................... ................... ................... ................... ................... ................... ........ [employer] Note From Keysha Valentin: Sent to evaluate pt with x5 days of abd pain. Upon arrival, pt is awake and alert, airway open and patent, breathing regular. In full sentences and in no apparent distress, pt describes that he had gradual onset of RUQ pain that has been +responsive to OTC pain medication. Pt states that pain is currently not present at this time, as he took tylenol this AM which resolved it. Pain is generally exacerbated by laying on R side or putting pressure on area. When pain is present, it's described as sharp, at max was 5/10. Pain radiates to R side, but does not radiate to flank or back. Pt denies n/v/d, fever/chills, endorses eating and drinking normally and denies that PO intake makes pain worse. Pt endorses normal urinary and stool output, denying dysuria, polyuria, increased urgency or frequency. Pt still has his gallbladder and has had an episode of this pain x1 time before, a few months ago which resolved on it's own. Pt denies falls/trauma, is not on blood thinners. BGL's have been normal, last one this AM was 92 prior to breakfast. Pt's skin is pink, warm, dry. Abd is soft, not tender, not distended. Pt's R side, just superior to hip, has slight discomfort when palpated, no visible injury/deformity/ab normality. Pt has not contacted PCP at this time to make them aware of pain. Consulted [facility] who advised that pt needs to contact PCP to make them aware and to potentially arrange for imaging. [facility] explained red flags to trigger ER visit. Pt made aware and advised that he will contact PCP today. No further questions or concerns at this time. ................... ................... ................... ................... ................... ................... ................... ........ Disposition: Juliana Urrutia MD [address] [facility], [place], [phone], [employer] 08/19/2022 15:08:54 12/14/2023 text/html HPI: Call returned to oP Bower to triage below. Reports having bilateral leg swelling from knee down. No redness, rash or bruising. Per pt swelling does improve with elevation. No leg pain. No swelling of upper extremities or face. No SOB or wheezing. Per pt is taking furosemide daily. Pt advised of disposition, agrees to [facility] for eval to rule out severe pitting edema and assess vitals as no appointments at [facility] today or tomorrow. Reviewed home care advise, ER precautions and reasons to call back. ................... ................... ................... ................... ................... ................... ................... ........ CRC Nurse Triage Notes (Shadia Loya): Comments: CRC RN DID NOT NEED FURTHER INFO [employer] POC Test Results from Ronn Tov[facility] (15:22:34) pH: 7.41 pH units pCO2: 43.1 mmHg pO2: 49.5 mmHg Na: 142 mmol/L K: 4.0 mmol/L iCa: 1.20 mmol/L Cl: 103 mmol/L TCO2: 27.1 mEq/L Hct: 38 % Hb: 13.0 g/dL Glu: 100 mg/dL Lac: 1.7 mmol/L Cr: 2.0 mg/dL BUN: 9 mg/dL A ................... ................... ................... ................... ................... ................... ................... ........ [employer] Note From Ronn Tovar: Pt reports increased BLE edema over the past week or so. Pt? s furosemide rx sts take 40 mg bid, pt sts he has only been taking 40 mg qd. Pt also sts that his PCP was discussing decreasing the dose to 20 mg qd due to his kidney function. Pt denies CP, SOB, SUMNER, f/n/v/d. Pt is alert, NAD. VSS. Afebrile. Non focal neuro exam. Normal gait. Lungs CTA. Benign ABD exam. +3 BLE pitting edema. POC labs uploaded, Crea 2.0. Pt instructed to take furosemide 40 mg bid today, tomorrow and . Pt also instructed to f/u with PCPs office today for an appt on Wednesday to recheck creatinine and edema. Red flags reviewed. ................... ................... ................... ................... ................... ................... ................... ........ Disposition: Fulfilled Augustus Osorio MD [address] [facility], [place], [address], [place] [employer] - [employer]ANNE WILEY 12/14/2023 19:38:56
--- OUTSIDE RECORDS SUMMARY | 2024-05-17 18:12 | XMS_ITS | Clinical Summary ---
Author Organization Unknown Care Team Providers Care Wireless Retail Manager Name Role Phone HIRAM PARR MD, BRENT Unavailable U cara OGDEN RN, LUIS Unavailable Unavailable Payers Payer Name Policy Type Policy Number Effective Date Expira tion Date [facility] [id number] MEDICAID [facility] [id number] MEDICARE - [facility] [id number] Problems Condition Name Condition Details Condition Category Status Onset Date Resolution Date Last Treatment Date Treating Clinician Comments OTHER CHRONIC PANCREATITIS Active 08-26 00:00: 00 ALCOHOL ABUSE, IN REMISSION Active 08-30 00:00: 00 TYPE 2 DIABETES W DIABETIC AUTONOMIC (POLY)NEUROP ATHY Active 08-26 00:00: 00 ANXIETY DISORDER, UNSPECIFIED Active 08-26 00:00: 00 CHRONIC DIASTOLIC (CONGESTIVE) HEART FAILURE Active 08-26 00:00: 00 ESSENTIAL (PRIMARY) HYPERTENSION Active 08-26 00:00: 00 CHRONIC OBSTRUCTIVE PULMONARY DISEASE, UNSPECIFIED Active 08-26 00:00: 00 INSOMNIA, UNSPECIFIED Active 08-26 00:00: 00 Allergies, Adverse Reactions, Alerts Allergy Name Allergy Type Status Severity Reaction(s) Onset Date Inactive Date Treating Clinician Comments NKA Propensity to adverse reactions Active 2023-08 23:13:3 9 Medications Ordered Medication Name Filled Medication Name Start Date Stop Date Current Medication? Ordering Clinician Indication Dosage Frequency Signature (SIG) Comments Components testosteron e 20.25 mg/1.25 gram per pump act.(1.62 %) transdermal gel 09-01 00:00: 00 Yes [id number] Per instruc tions 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 Per instructio ns 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 (route: transderma l) Med Classific ation: Endocrine Trelegy Ellipta 200 mcg-62.5 mcg-25 mcg powder for inhalation 02-11 00:00: 00 09-01 00:00 :00 No [id number] Per instruc tions EVERY DAY Per instructio ns EVERY DAY (route: inhalation ) Med Classific ation: Respirato ry Therapy Agents azelastine 137 mcg (0.1 %) nasal spray aerosol 09-01 00:00: 00 Yes [id number] Per instruc tions 1 SPRAY INTRANASAL LY TWICE A DAY Per instructio ns 1 SPRAY INTRANASAL LY TWICE A DAY (route: nasal) Med Classific ation: Respirato ry Therapy Agents aspirin 81 mg tablet,olya yed release 09-01 00:00: 00 Yes [id number] 1 tablet DAILY 1 tablet DAILY (route: oral) Med Classific ation: Hematolog ical Agents Alcohol Prep Pads 09-01 00:00: 00 Yes [id number] Per instruc tions 3 TIMES DAILY Per instructio ns 3 TIMES DAILY (route: topical) Med Classific ation: Antisepti cs and Disinfect ants furosemide 40 mg tablet 02-28 00:00: 00 09-01 23:59 :00 No [id number] 1 tablet 2 TIMES DAILY 1 tablet 2 TIMES DAILY (route: oral) Med Classific ation: Cardiovas cular Therapy Agents lorazepam 1 mg tablet 09-01 00:00: 00 Yes [id number] Per instruc tions THREE TIMES A DAY NEEDED Per instructio ns THREE TIMES A DAY NEEDED (route: oral) Med Classific ation: Central Nervous System Agents acetaminoph en ER 650 mg tablet,exte nded release 09-01 00:00: 00 Yes [id number] 1 tablet EVERY 8 HOURS 1 tablet EVERY 8 HOURS (route: oral) Med Classific ation: Analgesic , Anti-infl ammatory or Antipyret ic quetiapine 50 mg tablet 09-01 00:00: 00 11-17 23:59 :00 No [id number] Per instruc tions EVERY DAY NEEDED Per instructio ns EVERY DAY NEEDED (route: oral) Med Classific ation: Central Nervous System Agents metoprolol tartrate 25 mg tablet 09-01 00:00: 00 Yes [id number] 1 tablet TWICE A DAY 1 tablet TWICE A DAY (route: oral) Med Classific ation: Cardiovas cular Therapy Agents amlodipine 10 mg tablet 09-01 00:00: 00 09-01 23:59 :00 No [id number] 1 tablet DAILY 1 tablet DAILY (route: oral) Med Classific ation: Cardiovas cular Therapy Agents atorvastati n 80 mg tablet 09-01 00:00: 00 Yes [id number] 1 tablet BEDTIME 1 tablet BEDTIME (route: oral) Med Classific ation: Cardiovas cular Therapy Agents bupropion HCl XL 300 mg 24 hr tablet, extended release 09-01 00:00: 00 03-30 23:59 :00 No [id number] 1 tablet DAILY 1 tablet DAILY (route: oral) Med Classific ation: Central Nervous System Agents fluoxetine 40 mg capsule 09-01 00:00: 00 Yes [id number] 2 capsule DAILY 2 capsule DAILY (route: oral) Med Classific ation: Central Nervous System Agents gabapentin 600 mg tablet 09-01 00:00: 00 Yes [id number] 1 tablet 2 TIMES DAILY 1 tablet 2 TIMES DAILY (route: oral) Med Classific ation: Central Nervous System Agents ipratropium 0.5 mg-albutero l 3 mg (2.5 mg base)/3 mL nebulizatio n soln 09-01 00:00: 00 Yes [id number] Per instruc tions NEEDED Per instructio ns NEEDED (route: inhalation ) Med Classific ation: Respirato ry Therapy Agents Jardiance 25 mg tablet 02-28 00:00: 00 06-23 23:59 :00 No [id number] 2 tablet DAILY 2 tablet DAILY (route: oral) Med Classific ation: Endocrine melatonin 10 mg capsule 09-01 00:00: 00 Yes [id number] 1 capsule BEDTIME 1 capsule BEDTIME (route: oral) Med Classific ation: Central Nervous System Agents metoprolol tartrate 25 mg tablet 02-28 00:00: 00 09-01 00:00 :00 No [id number] 1 tablet 2 TIMES DAILY 1 tablet 2 TIMES DAILY (route: oral) Med Classific ation: Cardiovas cular Therapy Agents prednisone 5 mg tablet 02-28 00:00: 00 09-01 00:00 :00 No [id number] 1 tablet DAILY 1 tablet DAILY (route: oral) Med Classific ation: Endocrine quetiapine 100 mg tablet 09-01 00:00: 00 Yes [id number] 1 tablet BEDTIME 1 tablet BEDTIME (route: oral) Med Classific ation: Central Nervous System Agents quetiapine 50 mg tablet 09-01 00:00: 00 11-17 23:59 :00 No [id number] 1 tablet DAILY 1 tablet DAILY (route: oral) Med Classific ation: Central Nervous System Agents sulindac 150 mg tablet 02-28 00:00: 00 09-01 00:00 :00 No [id number] 1 tablet 2 TIMES DAILY 1 tablet 2 TIMES DAILY (route: oral) Med Classific ation: Analgesic , Anti-infl ammatory or Antipyret ic tadalafil 10 mg tablet 09-01 00:00: 00 Yes [id number] 1 tablet DAILY 1 tablet DAILY (route: oral) Med Classific ation: Drugs to treat Erectile Dysfuncti on terazosin 5 mg capsule 09-01 00:00: 00 Yes [id number] 1 capsule BEDTIME 1 capsule BEDTIME (route: oral) Med Classific ation: Cardiovas cular Therapy Agents trazodone 50 mg tablet 09-01 00:00: 00 Yes [id number] 1 tablet BEDTIME 1 tablet BEDTIME (route: oral) Med Classific ation: Central Nervous System Agents Trelegy Ellipta 200 mcg-62.5 mcg-25 mcg powder for inhalation 09-01 00:00: 00 Yes [id number] 2 inhalat ion DAILY 2 inhalation DAILY (route: inhalation ) Med Classific ation: Respirato ry Therapy Agents Vitamin D3 25 mcg (1,000 unit) capsule 09-01 00:00: 00 Yes [id number] 1 capsule DAILY 1 capsule DAILY (route: oral) Med Classific ation: Electroly te Balance-N utritiona l Products Wellbutrin XL 150 mg 24 hr tablet, extended release 09-01 00:00: 00 Yes [id number] 1 tablet DAILY 1 tablet DAILY (route: oral) Med Classific ation: Central Nervous System Agents sulindac 150 mg tablet 2022-06 00:00: 00 09-01 00:00 :00 No [id number] 150 mg 2 TIMES DAILY 150 mg 2 TIMES DAILY (route: oral) Med Classific ation: Analgesic , Anti-infl ammatory or Antipyret ic metformin 850 mg tablet 06-28 00:00: 00 09-01 23:59 :00 No [id number] 1 tablet 2 TIMES DAILY 1 tablet 2 TIMES DAILY (route: oral) Med Classific ation: Endocrine amlodipine 5 mg tablet 09-01 00:00: 00 Yes [id number] 1 tablet DAILY 1 tablet DAILY (route: oral) Med Classific ation: Cardiovas cular Therapy Agents Fiber (with aspartame) 3.4 gram/5.8 gram oral powder 09-01 00:00: 00 Yes [id number] 5 g DAILY 5 g DAILY (route: oral) Med Classific ation: Gastroint estinal Therapy Agents furosemide 20 mg tablet 09-01 00:00: 00 Yes [id number] 1 tablet DAILY 1 tablet DAILY (route: oral) Med Classific ation: Cardiovas cular Therapy Agents Abilify 5 mg tablet 6-13 00:00: 00 Yes [id number] 1 tablet DAILY 1 tablet DAILY (route: oral) Med Classific ation: Central Nervous System Agents potassium chloride ER 10 mEq tablet,exte nded release 01-19 00:00: 00 01-20 23:59 :00 No [id number] 1 tablet DAILY 1 tablet DAILY (route: oral) Med Classific ation: Electroly te Balance-N utritiona l Products tizanidine 2 mg tablet 01-19 00:00: 00 Yes [id number] 1 tablet EVERY 8 HOURS 1 tablet EVERY 8 HOURS (route: oral) Med Classific ation: Locomotor System Creon 07,631-20,0 00-120,000 unit capsule,del ayed release 2023-06 024 00:00: 00 Yes [id number] 1 capsule 3 TIMES DAILY 1 capsule 3 TIMES DAILY (route: oral) Med Classific ation: Gastroint estinal Therapy Agents dicyclomine 10 mg capsule 2023-06 024 00:00: 00 Yes [id number] 1 capsule 4 TIMES DAILY 1 capsule 4 TIMES DAILY (route: oral) Med Classific ation: Gastroint estinal Therapy Agents tolterodine ER 4 mg capsule,ext ended release 24 hr 2023-0624 00:00: 00 Yes [id number] 1 capsule DAILY 1 capsule DAILY (route: oral) Med Classific ation: Genitouri nary Therapy Vital Signs Vital Name Observation Time Observation Value Commen ts Pulse 2024-05-11 10:23:00.000 59 /min Respirations 2024-05-11 10:23:00.000 18 /min Systolic Blood Pressure 2024-05-11 10:23:00.000 107 mm [Hg] Diastolic Blood Pressure 2024-05-11 10:23:00.000 70 mm [Hg] Plan of Treatment Planned Activity Planned Date Details Comments Future Scheduled Test SKILLED NU RSE TO EVALUATE PATIENT, IDENTIFY PRIMARY AND CO-MORBID CONDITIONS CODED PER CODING GUIDELINES, AND DEVELOP PATIENT SPECIFIC PLAN OF CARE THAT INCLUDES PATIENT GOAL FOR HOME HEALTH. [code = SKILLED NURSE TO EVALUATE PATIENT, IDENTIFY PRIMARY AND CO-MORBID CONDITIONS CODED PER CODING GUIDELINES, AND DEVELOP PATIENT SPECIFIC PLAN OF CARE THAT INCLUDES PATIENT GOAL FOR HOME HEALTH.] Future Scheduled Test SKILLED NU RSE WILL MAINTAIN SITUATIONAL AWARENESS FOR SAFETY AND WILL NOTIFY CLINICAL FIGURE SKATER AND PHYSICIAN/PROVIDER WITH ANY CHANGE IN CONDITION. [code = SKILLED NURSE WILL MAINTAIN SITUATIONAL AWARENESS FOR SAFETY AND WILL NOTIFY CLINICAL FIGURE SKATER AND PHYSICIAN/PROVIDER WITH ANY CHANGE IN CONDITION.] Future Scheduled Test SKILLED NU RSE TO O/A OF PATIENTS MENTAL/BEHAVIORAL STATUS, ASSESS VITAL SIGNS EACH VISIT, ALLOW 2 PRNS FOR MEDICATION MANAGEMENT. [code = SKILLED NURSE TO O/A OF PATIENTS MENTAL/BEHAVIORAL STATUS, ASSESS VITAL SIGNS EACH VISIT, ALLOW 2 PRNS FOR MEDICATION MANAGEMENT.] Future Scheduled Test SKILLED NU RSE FOR O/A OF GENERAL HEALTH STATUS OF PAIN, CARDIAC, RESPIRATORY, GASTROINTESTINAL, GENITOURINARY, SKIN, NEUROLOGIC, ENDOCRINE SYSTEMS TO IDENTIFY CHANGES ASSOCIATED WITH EXACERBATION FOR EARLY INTERVENTION OF COMPLICATIONS EACH VISIT [code = SKILLED NURSE FOR O/A OF GENERAL HEALTH STATUS OF PAIN, CARDIAC, RESPIRATORY, GASTROINTESTINAL, GENITOURINARY, SKIN, NEUROLOGIC, ENDOCRINE SYSTEMS TO IDENTIFY CHANGES ASSOCIATED WITH EXACERBATION FOR EARLY INTERVENTION OF COMPLICATIONS EACH VISIT ] Future Scheduled Test SKILLED NU RSE FOR O/A AND SKILLED TEACHING RELATED TO MANAGEMENT OF DEPRESSIVE SYMPTOMS AND/OR DEPRESSION. SN TO REPORT SIGNIFICANT CHANGE IN DEPRESSIVE SYMPTOMS TO CLINICAL PROVIDER FOR EARLY INTERVENTION. [code = SKILLED NURSE FOR O/A AND SKILLED TEACHING RELATED TO MANAGEMENT OF DEPRESSIVE SYMPTOMS AND/OR DEPRESSION. SN TO REPORT SIGNIFICANT CHANGE IN DEPRESSIVE SYMPTOMS TO CLINICAL PROVIDER FOR EARLY INTERVENTION.] Future Scheduled Test SKILLED NU RSE TO ASSESS PATIENTS PSYCHOSOCIAL STATUS TO IDENTIFY POTENTIAL ISSUES THAT MAY COMPLICATE THE PROVISION OF THE PLAN OF CARE INCLUDING THE PATIENTS ABILITY TO ACCESS COMMUNITY RESOURCES AND PSYCHOSOCIAL SUPPORT SERVICES. [code = SKILLED NURSE TO ASSESS PATIENTS PSYCHOSOCIAL STATUS TO IDENTIFY POTENTIAL ISSUES THAT MAY COMPLICATE THE PROVISION OF THE PLAN OF CARE INCLUDING THE PATIENTS ABILITY TO ACCESS COMMUNITY RESOURCES AND PSYCHOSOCIAL SUPPORT SERVICES.] Future Scheduled Test SKILLED NU RSE FOR O/A AND SKILLED TEACHING OF COPING SKILLS TO MANAGE ANXIETY AND MAINTAIN SAFETY. [code = SKILLED NURSE FOR O/A AND SKILLED TEACHING OF COPING SKILLS TO MANAGE ANXIETY AND MAINTAIN SAFETY.] Future Scheduled Test SKILLED NU RSE FOR O/A AND TEACHING OF ENDOCRINE SYSTEM TO IDENTIFY CHANGES ASSOCIATED WITH EXACERBATION OF DIABETES FOR EARLY INTERVENTION OF COMPLICATIONS. [code = SKILLED NURSE FOR O/A AND TEACHING OF ENDOCRINE SYSTEM TO IDENTIFY CHANGES ASSOCIATED WITH EXACERBATION OF DIABETES FOR EARLY INTERVENTION OF COMPLICATIONS.] Future Scheduled Test SKILLED NU RSE FOR O/A OF SIGNS AND SYMPTOMS OF SUBSTANCE USE INCLUDING PARTICIPATION IN [facility] SPECIALTY PROGRAM. INSTRUCT PATIENT ON RELATED RISKS AND WILL NOTIFY TREATMENT TEAM NEEDED. [code = SKILLED NURSE FOR O/A OF SIGNS AND SYMPTOMS OF SUBSTANCE USE INCLUDING PARTICIPATION IN [facility] SPECIALTY PRO[facility]. INSTRUCT PATIENT ON RELATED RISKS AND WILL NOTIFY TREATMENT TEAM NEEDED.] Goal 2023-10-28 Patient Goal - NO HOSPITALIZ ATION Goal 2023-12-28 Patient Goal - NO HOSPITALIZ ATION Goal 2024-02-24 Patient Goal - NO HOSPITALIZ ATION Goal 2024-04-27 Patient Goal - STAY OUT OF T HOSPITAL Goal Patient Goal - ST[facility] OUT [facility] Goal Provider Goal - A PLAN OF CARE WILL BE ESTABLISHED THAT MEETS PATIENT'S CARE HOME NEEDS AND INCLUDES PATIENT GOAL FOR HOME HEALTH. Goal Provider Goal - PATIENT WILL REMAIN SAFE IN THE COMMUNITY AND WILL BE FREE OF DANGER TO SELF AND OTHERS THROUGHOUT THE CERTIFICATION PERIOD. Goal Provider Goal - ALTERED MENTAL/BEHAVIORAL STATUS WILL BE IDENTIFIED PROMPTLY AND INTERVENTION INITIATED QUICKLY TO MINIMIZE ASSOCIATED RISKS THROUGHOUT CERTIFICATION PERIOD. Goal Provider Goal - CHANGE IN GENERAL HEALTH STATUS WILL BE IDENTIFIED AND REPORTED TO PHYSICIAN FOR PROMPT INTERVENTION TO MINIMIZE ASSOCIATED RISKS THROUGHOUT CERTIFICATION PERIOD. Goal Provider Goal - PATIENT WILL REMAIN SAFE WITHOUT DECOMPENSATION IN DEPRESSIVE CONDITION, WHILE MAINTAINING OPTIMAL LEVEL OF MENTAL HEALTH AND WELL BEING THROUGHOUT CERTIFICATION PERIOD. Goal Provider Goal - PSYCHOSOCIAL NEEDS WILL BE IDENTIFIED AND PLAN IMPLEMENTED TO MINIMIZE RISK THROUGHOUT CERTIFICATION PERIOD. Goal Provider Goal - PATIENT WILL BE ABLE TO PERFORM DAILY FUNCTIONS AND HAVE OPTIMAL IMPROVEMENT IN LEVEL OF ANXIETY THROUGHOUT CERTIFICATION PERIOD. Goal Provider Goal - PATIENT/CAREGIVER WILL VERBALIZE SIGNS AND SYMPTOMS OF EXACERBATION OF DIABETES TO REPORT TO NURSE/PHYSICIAN THROUGHOUT THE CERTIFICATION PERIOD. Goal Provider Goal - PATIENT WILL REMAIN SAFE IN COMMUNITY AND WILL ACKNOWLEDGE RELATED RISKS OF SUBSTANCE USE THROUGHOUT CERTIFICATION PERIOD. Encounters Start Date/Time End Date/Time Encounter Type Admission Type Attending [facility] Care Department Encounter ID Discharge Date Discharge Status Discharge Condition Discharge Reason Percent Goals Met 2023-09-02 00:00:00 2024-06-27 00:00:00 Outpatient RECERTIFIC ATION [facility] [id number] 20.00
== END 2024-05-15 22:22 | disposition home or self-care (01) ==
PROVIDERS: Physician Assistant; Emergency Provider Emergency Medicine; PCP Internal Medicine
DX: R11.2 Nausea with vomiting, unspecified (principal); R50.9 Fever, unspecified; R53.81 Other malaise; R00.1 Bradycardia, unspecified; Z79.899 Other long term (current) drug therapy
CPT/HCPCS: 0241U; 74176; 80053; 80307; 83690; 83735; 85025; 93005; 99285; J2060; J2765; J7120

== ENCOUNTER → 2024-05-15 20:06 | Outpatient (BNV) | payer OTHER, SELFPAY | PROVIDERS: Emergency Provider Emergency Medicine; PCP Internal Medicine; Visit Provider Internal Medicine Cardiovascular Disease | DX: R94.31 Abnormal electrocardiogram [ECG] [EKG] (principal) | CPT/HCPCS: 93010 ==

== ENCOUNTER 2024-05-17 11:26 | Inpatient (IN) | payer OTHER, SELFPAY ==
[2024-05-17] VITALS (7 sets, daily range): BP systolic 132–165; BP diastolic 77–95; PULSE 48–76; RESP 16–20; TEMP 36.3–36.6; O2SAT 90–100; BMI 25.8
--- NOTE | 2024-05-17 11:40 | ECG_ITS ---
Test Reason : ANXITY Blood Pressure : / mmHG Vent. Rate : 060 BPM Atrial Rate : 060 BPM P-R Int : 162 ms QRS Dur : 078 ms QT Int : 408 ms P-R-T Axes : 076 066 111 degrees QTc Int : 408 ms Normal sinus rhythm Septal infarct , age undetermined Abnormal ECG No previous ECGs available Referred By: Sultana Drake Electronically Signed By:GUERA EDDY MD
[2024-05-17 11:50] LABS: Glucose, Whole Blood 94 mg/dL (60-115)
[2024-05-17] MEDS: LORazepam 2 MG/ML VIAL IVPUSH (12:02)
[2024-05-17] MEDS: Metoclopramide HCl 10 MG/2 ML VIAL IVPUSH ×2 (12:06→16:07)
[2024-05-17 12:09] LABS: MANUAL DIFF FLAG NO
[2024-05-17] MEDS: Lactated Ringers 1,000 ML 999 ML IV (12:09)
[2024-05-17 12:10] LABS: Basophils Percent Auto 0.5 % (0-2); Eosinophils Absolute Auto 0.3 X10*3/uL (0.0-0.4); Eosinophils Percent Auto 3.9 % (0-4); Hematocrit 47.9 % (42.0-52.0); Hemoglobin 15.7 g/dl (14.0-18.0); Imm Gran Abs Auto 0.02 X10*3/uL (0.00-0.03); Imm Gran Pct Auto 0.2 % (0.0-0.4); Lymphocytes Absolute Auto 2.2 X10*3/uL (1.2-4.9); Lymphocytes Percent Auto 26.7 % (20-40); Mean Corpuscular HGB Conc 32.8 g/dl (31.0-36.0); Mean Corpuscular Hemoglobin 27.7 pg (27.0-33.0); Mean Corpuscular Volume 84.5 fL (80.0-98.0); Mean Platelet Volume 10.3 fL (9.4-12.4); Monocytes Absolute Auto 0.6 X10*3/uL (0.1-1.2); Monocytes Percent Auto 7.3 % (2-11); Neutrophils Absolute Auto 4.9 x10*3/uL (2.0-8.3); Neutrophils Percent Auto 61.4 % (45-73); Platelet Count 202 X10*3/uL (160-400); Red Blood Count 5.67 X10*6/uL (4.60-5.80); Red Cell Distribution Width 14.2 % (11.0-16.0); White Blood Count 8.1 X10*3/uL (4.8-10.8)
[2024-05-17 12:28] LABS: Alanine Aminotransferase 33 U/L (0-40); Albumin Level 4.4 g/dL (3.5-5.0); Alkaline Phosphatase 80 U/L (39-117); Anion Gap 17 (12-20); Aspartate Amino Transferase 31 U/L (5-37); Bilirubin Direct 0.3 mg/dL (0.0-0.5); Bilirubin Total 0.8 mg/dL (0.0-1.0); Blood Urea Nitrogen 10 mg/dL (9-16); Calcium 10.1 mg/dL (8.4-10.2); Carbon Dioxide 20 mmol/L (22-29); Chloride 105 mmol/L (96-108); Creatinine Clr Calc Pharmacy 35.7; Estimated Glomerular Filt Rate 36; Ethanol < 10 mg/dL; Glucose Random 85 mg/dL (60-115); Lipase 273 U/L (8-78); Magnesium 2.3 mg/dL (1.6-2.6); Potassium 3.8 mmol/L (3.3-5.1); Sodium 138 mmol/L (135-145); Total Protein 7.3 g/dL (6.5-8.0)
[2024-05-17 12:34] LABS: Troponin-I High Sensitivity < 2.7 ng/L (<3.5-35.0)
[2024-05-17 12:56] LABS: Influenza A PCR NEGATIVE (Negative); Influenza B PCR NEGATIVE (Negative); Resp Syncy Virus RNA Qual PCR NEGATIVE (Negative); SARS COV2 PCR INHOUSE NEGATIVE (Negative)
--- NOTE | 2024-05-17 13:07 | ED_ITS ---
HPI - General Adult General Chief complaint: General Medical Stated complaint: N/V,WEAK,SHAKEY,SOB 90% RA X2D Time Seen by Provider: 05/17/24 11:40 Source: patient and RN notes reviewed Mode of arrival: ambulatory Limitations: no limitations History of Present Illness ED Provider: Sultana Drake PA-C HPI narrative: This is a 64-year-old male, PMH of BPH, GERD, depression, VIRAJ on CPAP, CKD, COPD, ETOH use disorder, HTN, PAF, hypokalemia, who presents emergency department for evaluation of abdominal pain, nausea, vomiting and diarrhea. Patient was seen here 2 days ago with similar symptoms, and was discharged, he states that he has been unable to tolerate any food or drink since being discharged 2 days ago. He states that over the last several days he has had nausea, vomiting and diarrhea. He states that he has vomited approximately 5-6 times today. No bloody or black stool. Upon my initial assessment, patient very anxious, screaming stating that he wishes to be on the floor as she is not feeling well. He reports that he has a history of alcohol use disorder however reports that he has not drank in over 14 months. No other drug use. MD complaint: Sultana Drake PA-C Relieving factors: none Exacerbating factors: none Related Data Home Medications ?Medication ?Instructions ?Recorded ?Confirmed aspirin 81 mg tablet,delayed 81 mg PO DAILY 09/02/20 05/17/24 release atorvastatin 80 mg tablet 80 mg PO DAILY 09/02/20 05/17/24 cholecalciferol (vitamin D3) 25 25 mcg PO DAILY 09/02/20 05/17/24 mcg (1,000 unit) tablet lorazepam 1 mg tablet 1 mg PO TID PRN Anxiety 03/28/21 05/17/24 bupropion HCl 150 mg 24 hr tablet, 150 mg PO DAILY 08/25/21 05/17/24 extended release multivitamin with folic acid 400 1 tab PO DAILY 11/05/21 05/17/24 mcg tablet (Daily-Sadi (with folic acid)) quetiapine 100 mg tablet 100 mg PO BEDTIME 11/05/21 05/17/24 naltrexone 50 mg tablet 25 mg PO DAILY 02/19/22 05/17/24 blood sugar diagnostic (WisamStyle #10 ea 05/19/22 04/20/24 Lite Strips) blood-glucose meter (FreeStyle #1 ea 05/19/22 04/20/24 [facility] Lite kit) lancets 28 gauge (FreeStyle #100 ea 05/19/22 04/20/24 Lancets) gabapentin 600 mg tablet 600 mg PO BID 06/18/22 05/17/24 albuterol sulfate 90 mcg/actuation 2 puff PO Q6H PRN for wheezing 01/15/24 05/17/24 aerosol inhaler (Ventolin HFA) aripiprazole 5 mg tablet 5 mg PO DAILY 01/15/24 05/17/24 dicyclomine 10 mg capsule 10 mg PO TIDAC 01/15/24 05/17/24 fluoxetine 20 mg capsule 20 mg PO DAILY 01/15/24 05/17/24 fluoxetine 40 mg capsule 40 mg PO DAILY 01/15/24 05/17/24 furosemide 20 mg tablet 20 mg PO DAILY 01/15/24 05/17/24 hydroxyzine HCl 25 mg tablet 25 mg PO DAILY PRN Anxiety 01/15/24 05/17/24 loperamide 2 mg capsule 2 mg PO QID PRN Diarrhea 01/15/24 05/17/24 ondansetron 4 mg disintegrating 4 mg PO Q8H PRN Nausea And Vomiting 01/15/24 05/17/24 tablet trazodone 50 mg tablet 50 mg PO BEDTIME 01/15/24 05/17/24 acetaminophen 650 mg 650 mg PO Q8H 05/17/24 05/17/24 tablet,extended release empagliflozin 25 mg tablet 25 mg PO DAILY 05/17/24 05/17/24 (Jardiance) famotidine 20 mg tablet 20 mg PO DAILY 05/17/24 05/17/24 qykvfh-ogbbjbqg-jbxeesg 1 cap PO DAILY PRN SNACK 05/17/24 05/17/24 24,000-76,000-120,000 unit capsule,delayed rel (Creon) isrgvq-ndywcjij-pdthscn 2 cap PO TIDWM 05/17/24 05/17/24 24,000-76,000-120,000 unit capsule,delayed rel (Creon) Previous Rx's ?Medication ?Instructions ?Recorded metoprolol tartrate 25 mg tablet 25 mg PO BID #180 tabs 06/23/23 Trelegy Ellipta 200 mcg-62.5 1 ea PO DAILY #60 ea 12/10/23 mcg-25 mcg powder for inhalation (vqqsdswwwgw-pavyzouif-wjypersb) testosterone 2 pump topical DAILY 30 days #75 12/30/23 grams tolterodine 4 mg capsule,extended 4 mg PO DAILY 90 days #90 caps 12/30/23 release 24 hr potassium chloride 10 mEq 10 meq PO DAILY #3 caps 01/16/24 capsule,extended release azelastine 137 mcg (0.1 %) nasal 1 spray intranasal BID #90 mL 04/17/24 spray Allergies Allergy/AdvReac Type Severity Reaction Status Date / Time No Known Allergies Allergy Verified 05/17/24 11:51 [No Known Allergies*] Review of Systems 2 Review of Systems: Yes all other systems are reviewed and are negative Constitutional: Constitutional: Reports as per [facility] Past Medical History Attestation statement: The following information was validated with the patient. Medical History Essential hypertension Nicotine dependence, cigarettes, uncomplicated Respiratory failure with hypercapnia Type 2 diabetes mellitus with unspecified complications History of alcohol use Elevated PSA BPH loc w urin obs/LUTS Allergic rhinitis VIRAJ on CPAP COPD (chronic obstructive pulmonary disease) Surgical History History of back surgery History of back surgery Family History Family History Father HTN (hypertension) Social History Social History Household Members: None Household Members Other:: 2 Rabbits Housing: Apartment Alcohol intake: former Patient Tobacco Use Status: Current everyday Tobacco user Tobacco use type: Cigarette Cigarette Packs Per Day: 0.3 Cigarettes Per Day: 6.0 Years Smoked: 30 +/- Smoked in Last 30 Days: Yes Patient Interested in Nicotine Replacement: No Patient Given Instructions on How to Stop Smoking: No (refused) Second Hand Smoke Exposure: No Use of substances other than those prescribed or required for medical reasons: No Currently Displaying Signs/Symptoms of Drug Intoxication Withdrawal: No Any prior treatment program specific to substance use: No Have you been hit, kicked, punched, or otherwise hurt by someone within the past year? If so, by whom?: No Do you feel safe in your current relationship?: No Current Relationship Is there a partner from a previous relationship who is making you feel unsafe now?: No Are you made to feel afraid or neglected: No Advance Directives: Yes Advance Directives on File: Yes Advance Directives Date on File: 01/15/24 Do you have a plan to hurt others: No Plan Recently lost weight without trying: No How much weight loss: Not applicable Nutrition Risks: No Nutritional Risk Poor oral hygiene: No service: No Physical Exam ED Vital Signs: Vital Signs - 24 hr 05/17/24 11:48 Pulse Rate 60 Respiratory Rate 18 Blood Pressure 141/87 H Pulse Oximetry 100 Oxygen Delivery Method Nasal Cannula BMI result Body Mass Index 25.8 Const Other: Very anxious appearing, throwing himself across the stretcher, demanding he be placed on the floor General: anxious Limitations: no limitations HENMT Head: Yes normal to inspection, Yes normocephalic and Yes atraumatic Ears: hearing grossly normal bilaterally General nose exam: Normal external nose present Face and sinus: Yes normal facial exam Mouth: Normal oral and palatal mucosa present, oropharynx normal and moist mucous membranes Throat: Yes posterior oropharynx normal Eyes General: appearance normal, both eyes and all related structures Eyelids: Yes eyelids normal Conjunctivae: conjunctivae normal Sclerae: sclerae normal Pupils: Equal, round and reactive pupils present EOM: EOMs intact bilaterally Neck Neck: Yes normal visual inspection, Yes full ROM and Yes no lymphadenopathy Lymphatic: no lymphadenopathy noted Chest Chest palpation & inspection: normal inspection of the chest Resp Effort & Inspection: normal respiratory effort and able to speak in complete sentences Auscultation: clear to auscultation bilaterally, no crackles, no rales, no rhonchi and no wheezes Cardio Rate: regular rate Rhythm: regular rhythm Heart sounds: S1 normal heart sound present and S2 normal heart sound present GI Other: Abdomen is soft however with diffuse tenderness throughout abdomen. No rebound or guarding. Inspection: Yes normal to inspection Skin General skin exam: no rashes or lesions noted Trauma: no lacerations or abrasions Wounds: no wounds Neuro General: moves all extremities Cranial nerves: Yes Equal, round and reactive pupils present Extrem General: Yes normal to inspection Right upper extremity: normal to inspection Left upper extremity: normal to inspection Right lower extremity: normal to inspection Left lower extremity: normal to inspection Course Reevaluation(s) Reevaluation #1: Pt resting, feeling better than his initial presentation but not back to 100%, Labs returned, he has no leukocytosis, stable H&H, chemistry with elevated creatinine at 1.9, similar to previous, and he has a history of CKD. Lipase elevated at 273, worsening levels from previous 2 days ago which were 78. Given elevation, as well as presentation of abdominal pain, nausea, vomiting, will treat as acute pancreatitis. Will administer IV fluids. Discussed case with hospitalist, transfer of care initiated. Time: 14:22 Medications Administered Generic Name Dose Route Start Last Admin Trade Name Freq PRN Reason Stop Dose Admin Lipase/Protease/Amylase 2 cap 05/18/24 08:00 05/18/24 11:35 Lipase/Prot/Amylase 24/76/120k 1 Cap Capsule. PO 2 cap TIDWM SONJA Administration Aripiprazole 5 mg 05/18/24 09:00 05/18/24 08:13 Aripiprazole 5 Mg Tablet PO 5 mg DAILY SONJA Administration Aspirin 81 mg 05/18/24 09:00 05/18/24 08:12 Aspirin Enteric Coated 81 Mg Tablet. PO 81 mg DAILY SONJA Administration Atorvastatin Calcium 80 mg 05/18/24 09:00 05/18/24 08:12 Atorvastatin Calcium 80 Mg Tablet PO 80 mg DAILY SONJA Administration Azelastine HCl 1 spray 05/17/24 21:00 05/18/24 08:25 Azelastine Hcl Nasal 137 Mcg/[place] 30 Ml NOSTRIL-B Not Given BID SONJA Benzonatate 100 mg 05/17/24 15:32 05/17/24 23:43 Benzonatate 100 Mg Capsule PO 100 mg TID PRN Administration Cough Bupropion HCl 150 mg 05/18/24 09:00 05/18/24 08:13 Bupropion Hcl Xl 150 Mg Tab.Er.24h PO 150 mg DAILY SONJA Administration Dicyclomine HCl 10 mg 05/18/24 07:30 05/18/24 11:35 Dicyclomine Hcl 10 Mg Capsule PO 10 mg TIDAC SONJA Administration Empagliflozin 25 mg 05/18/24 09:00 05/18/24 08:14 Empagliflozin 25 Mg Tablet PO 25 mg DAILY SONJA Administration Enoxaparin Sodium 40 mg 05/17/24 16:00 05/17/24 17:33 Enoxaparin Sodium 40 Mg/0.4 Ml Syringe SUBCUT 40 mg Q24H SONJA Administration Famotidine 20 mg 05/18/24 09:00 05/18/24 08:13 Famotidine 20 Mg Tablet PO 20 mg DAILY SONJA Administration Fluoxetine HCl 20 mg 05/18/24 09:00 05/18/24 08:12 Fluoxetine Hcl 20 Mg Capsule PO 20 mg DAILY SONJA Administration Fluoxetine HCl 40 mg 05/18/24 09:00 05/18/24 08:12 Fluoxetine Hcl 20 Mg Capsule PO 40 mg DAILY SONJA Administration Furosemide 20 mg 05/18/24 09:00 05/18/24 08:14 Furosemide 20 Mg Tablet PO 20 mg DAILY SONAJ Administration Protocol Gabapentin 600 mg 05/17/24 21:00 05/18/24 08:13 Gabapentin 600 Mg Tablet PO 600 mg BID SONJA Administration Lactated Ringer's 1,000 mls @ 100 mls/hr 05/17/24 15:45 05/18/24 11:38 Lr IVCONT 100 mls/hr .Q10H SONJA Administration Loperamide HCl 2 mg 05/17/24 20:15 05/17/24 21:38 Loperamide Hcl 2 Mg Capsule PO 2 mg QID PRN Administration Diarrhea Lorazepam 1 mg 05/17/24 20:15 05/17/24 21:38 Lorazepam 1 Mg Tablet PO 1 mg TID PRN Administration Anxiety Metoprolol Tartrate 25 mg 05/17/24 21:00 05/18/24 08:13 Metoprolol Tartrate 25 Mg Tablet PO 25 mg BID SONJA Administration Protocol Multivitamins/Vitamin C 1 tab 05/18/24 09:00 05/18/24 08:13 Multivitamin Tablet PO 1 tab DAILY SONJA Administration Naltrexone HCl 25 mg 05/18/24 09:00 05/18/24 08:12 Naltrexone Hcl 50 Mg Tablet PO 25 mg DAILY SONJA Administration Ondansetron HCl 4 mg 05/17/24 18:00 05/17/24 20:15 Ondansetron Hcl 4 Mg/2 Ml Vial IVPUSH 4 mg Q6H PRN Administration Nausea and Vomiting Oxycodone HCl 5 mg 05/17/24 15:32 05/18/24 08:11 Oxycodone Hcl Immed Release 5 Mg Tablet PO 5 mg Q6H PRN Administration Pain, Moderate(Pain Scale 4-6) Potassium Chloride 10 meq 05/18/24 09:00 05/18/24 08:12 Potassium Chloride Er 10 Meq Tablet.Er PO 10 meq DAILY SONJA Administration Quetiapine Fumarate 100 mg 05/17/24 21:00 05/17/24 21:38 Quetiapine Fumarate 100 Mg Tablet PO 100 mg BEDTIME SONJA Administration Sodium Chloride 3 ml 05/17/24 16:00 05/18/24 07:23 0.9 % Sodium Chloride Flush 3 Ml Syringe IVFLUSH Not Given QSHIFT SONJA Tolterodine Tartrate 4 mg 05/18/24 09:00 05/18/24 08:13 Tolterodine Tartrate La 4 Mg Cap.Er.24h PO 4 mg DAILY SONJA Administration Trazodone HCl 50 mg 05/17/24 21:00 05/17/24 21:38 Trazodone Hcl 50 Mg Tablet PO 50 mg BEDTIME SONJA Administration Vitamin D 25 mcg 05/18/24 09:00 05/18/24 08:14 Cholecalciferol (Vitamin D3) 25 Mcg Tablet PO 25 mcg DAILY SONJA Administration Discontinued Medications Generic Name Dose Route Start Last Admin Trade Name Freq PRN Reason Stop Dose Admin Lactated Ringer's 1,000 mls @ 999 mls/hr 05/17/24 11:46 05/17/24 14:00 Lr IV 05/17/24 12:46 Infused .Q1H1M ONE Infusion Lorazepam 2 mg 05/17/24 11:50 05/17/24 12:02 Lorazepam 2 Mg/Ml Vial IVPUSH 05/17/24 11:51 2 mg ONCE ONE Administration Metoclopramide HCl 10 mg 05/17/24 11:50 05/17/24 12:06 Metoclopramide Hcl 10 Mg/2 Ml Vial IVPUSH 05/17/24 11:51 10 mg ONCE ONE Administration Metoclopramide HCl 10 mg 05/17/24 11:48 05/17/24 12:11 Metoclopramide Hcl 10 Mg/2 Ml Vial IVPUSH 05/17/24 11:49 Not Given ONCE ONE Metoclopramide HCl 10 mg 05/17/24 15:57 05/17/24 16:07 Metoclopramide Hcl 10 Mg/2 Ml Vial IVPUSH 05/17/24 15:58 10 mg ONCE ONE Administration Morphine Sulfate 2 mg 05/17/24 15:32 05/17/24 20:15 Morphine Sulfate 4 Mg/Ml Cartridge IVPUSH 2 mg Q4H PRN Administration Pain, Severe (Pain Scale 7-10) Protocol Medical Decision Making Medical Decision Making [facility] Narrative: This is a 64-year-old male who presents emergency department for evaluation nausea, vomiting the last 2 days. On arrival, patient very tremulous, shaking and anxious. He states that he has vomited 5-6 times. He reports abdominal cramping. Abdomen is soft, with diffuse tenderness throughout. Differential diagnoses include acute gastritis, gastroenteritis, acute pancreatitis, dehydration, electrolyte derangement. Patient medicated with Ativan 2 mg IV, Reglan, and lactated Ringer's. Review of previous ER visit revealing normal workup. He had a normal CT scan at that time. He has been unable to tolerate p.o.. Will repeat labs, medicate with antiemetics and Ativan. Plan: Labs, EKG, plus or minus CT scan however patient had normal CT scan. Will await for improvement of symptoms. Abdomen is soft, with diffuse tenderness throughout, no rebound or guarding. Will defer imaging at this time. Differential Diagnosis Differential Diagnoses: The differential diagnosis associated with the presentation includes See above Lab Data [facility] Lab Attestation statement: I reviewed the patient's lab results. 05/17/24 11:54 05/18/24 06:06 Labs: Lab Results 05/17/24 05/17/24 Range/Units 11:46 11:54 WBC 8.1 (4.8-10.8) X10*3/uL RBC 5.67 (4.60-5.80) X10*6/uL Hgb 15.7 (14.0-18.0) g/dl Hct 47.9 (42.0-52.0) % MCV 84.5 (80.0-98.0) fL MCH 27.7 (27.0-33.0) pg MCHC 32.8 (31.0-36.0) g/dl RDW 14.2 (11.0-16.0) % Plt Count 202 (160-400) X10*3/uL MPV 10.3 (9.4-12.4) fL Immature Gran % (Auto) 0.2 (0.0-0.4) % Neut % (Auto) 61.4 (45-73) % Lymph % (Auto) 26.7 (20-40) % [place] % (Auto) 7.3 (2-11) % Eos % (Auto) 3.9 (0-4) % Baso % (Auto) 0.5 (0-2) % Lymph # (Auto) 2.2 (1.2-4.9) X10*3/uL [place] # (Auto) 0.6 (0.1-1.2) X10*3/uL Eos # (Auto) 0.3 (0.0-0.4) X10*3/uL Baso # (Auto) 0.0 (0.0-0.2) X10*3/uL Abs Immat Gran (auto) 0.02 (0.00-0.03) X10*3/uL Absolute Neuts (auto) 4.9 (2.0-8.3) x10*3/uL Absolute Nucleated RBC 0.000 (0.0-0.012) X10*3/uL Nucleated RBC % (auto) 0.0 (0.0-0.2) /100WBC Sodium 138 (135-145) mmol/L Potassium 3.8 (3.3-5.1) mmol/L Chloride 105 (96-108) mmol/L Carbon Dioxide 20 L (22-29) mmol/L Anion Gap 17 (12-20) BUN 10 (9-16) mg/dL Creatinine 1.91 H (0.5-1.4) mg/dL Estim Creat Clear Calc 35.7 Estimated GFR 36 POC Glucose 94 (60-115) mg/dL Random Glucose 85 (60-115) mg/dL Calcium 10.1 (8.4-10.2) mg/dL Magnesium 2.3 (1.6-2.6) mg/dL Total Bilirubin 0.8 (0.0-1.0) mg/dL Direct Bilirubin 0.3 (0.0-0.5) mg/dL AST 31 (5-37) U/L ALT 33 (0-40) U/L Alkaline Phosphatase 80 (39-117) U/L Troponin I High Sens < 2.7 (<3.5-35.0) ng/L Total Protein 7.3 (6.5-8.0) g/dL Albumin 4.4 (3.5-5.0) g/dL Triglycerides 232 H (<150) mg/dL Cholesterol 175 (<200) mg/dL LDL Cholesterol, Calc 96 (<100) mg/dL HDL Cholesterol 33 L (>40) mg/dL Lipase 273 H (8-78) U/L Ethyl Alcohol < 10 mg/dL Influenza Type A (PCR) NEGATIVE (Negative) Influenza Type B (PCR) NEGATIVE (Negative) RSV RNA Qual (PCR) NEGATIVE (Negative) SARS-CoV-2 RNA (RT-PCR) NEGATIVE (Negative) Radiology Impression Discussion of test interpretation with radiology: I have reviewed the radiologist's reading. External Record Review External record reviewed: Inpatient record, Office record, Outpatient record, Prior outpatient labs, Prior outpatient radiology, Primary care record and Outside ED record Critical Care Time Critical Care Time Critical Care Time: Yes Total Critical Care Time: 35 Attestation: I have personally provided critical care time exclusive of time spent on separately billable procedures. Time includes review of lab data, radiology results, discussion with consultants, and monitoring for potential decompensation. Intervention performed as documented. Discharge Plan Discharge Clinical Impression: Acute pancreatitis Patient Disposition: Admitted As Inpatient Interventions: Admission Worksheet (ED) Last Done: 05/17/24 19:16 Discharge Date/Time: 05/17/24 20:47
--- NOTE | 2024-05-17 14:45 | P.HPHOSP_ITS ---
History of Present Illness Date of Service: 05/17/24 Attending physician on admission: India Blake Chief Complaint: Abdominal pain Pt is a 64-year-old male with a PMH significant for?alcohol use disorder, hx of alcohol withdrawal with seizures, HTN, HLD, ?paroxysmal AFib, chronic back pain BPH, CKD3, and VIRAJ on CPAP who presents to the ED with?intractable nausea, vomiting, diarrhea, and central, nonradiating abdominal pain x3 days. Patient initially presented to the emergency room 2 days ago on 05/15 where workup was largely negative, including lipase that was WNL and CT of abdomen and pelvis that was negative for acute inflammatory changes. Patient reports initially felt better and went home, the once home symptoms returned. Patient states he has only tolerated a small amount of [place] and a couple of crackers, otherwise has not been able to eat or drink anything. Subjective fever and chills. Reports similar symptoms 1 year ago and then again in December. Reports has been diagnosed with ?stomach migraines?. Reports last drank alcohol 14 months ago. No chest pain/pressure, palpitations. Denies shortness or breath or difficulty breathing. In the ED pt's vitals WNL and stable. Labs were significant for lipase 273 (increased from 78 on 05/15/2024), otherwise grossly unremarkable and baseline for patient. No leukocytosis. Stable H&H. No significant electrolyte abnormalities. Creatinine 1.91, at baseline. Hepatic function WNL. Troponin negative. EKG demonstrated normal sinus rhythm without evidence of acute ischemic changes. Pt was treated with lorazepam, metoclopramide, and IVF. Pt will be admitted to the hospital for treatment and further evaluation of acute pancreatitis of unclear etiology. Review of Systems 2 Review of Systems: Negative except for that which is stated in the HPI. [facility] Medical History Essential hypertension Nicotine dependence, cigarettes, uncomplicated Respiratory failure with hypercapnia Type 2 diabetes mellitus with unspecified complications History of alcohol use Elevated PSA BPH loc w urin obs/LUTS Allergic rhinitis VIRAJ on CPAP COPD (chronic obstructive pulmonary disease) Family History Father HTN (hypertension) Surgical History History of back surgery History of back surgery Social History Household Members: None Household Members Other:: 2 Rabbits Housing: Apartment Alcohol intake: former Patient Tobacco Use Status: Current everyday Tobacco user Tobacco use type: Cigarette Cigarette Packs Per Day: 0.3 Cigarettes Per Day: 6.0 Years Smoked: 30 +/- Smoked in Last 30 Days: Yes Patient Interested in Nicotine Replacement: No Patient Given Instructions on How to Stop Smoking: No (refused) Second Hand Smoke Exposure: No Use of substances other than those prescribed or required for medical reasons: No Currently Displaying Signs/Symptoms of Drug Intoxication Withdrawal: No Any prior treatment program specific to substance use: No Have you been hit, kicked, punched, or otherwise hurt by someone within the past year? If so, by whom?: No Do you feel safe in your current relationship?: No Current Relationship Is there a partner from a previous relationship who is making you feel unsafe now?: No Are you made to feel afraid or neglected: No Advance Directives: Yes Advance Directives on File: Yes Advance Directives Date on File: 01/15/24 Do you have a plan to hurt others: No Plan Recently lost weight without trying: No How much weight loss: Not applicable Nutrition Risks: No Nutritional Risk Poor oral hygiene: No service: No Meds Allergies Allergy/AdvReac Type Severity Reaction Status Date / Time No Known Allergies Allergy Verified 05/17/24 11:51 [No Known Allergies*] Home Medications ?Medication ?Instructions ?Recorded ?Confirmed ?Last Taken ?Type aspirin 81 mg tablet,delayed 81 mg PO DAILY 09/02/20 05/17/24 01/15/24 09:00 History release atorvastatin 80 mg tablet 80 mg PO DAILY 09/02/20 05/17/24 01/15/24 09:00 History cholecalciferol (vitamin D3) 25 25 mcg PO DAILY 09/02/20 05/17/24 01/15/24 09:00 History mcg (1,000 unit) tablet lorazepam 1 mg tablet 1 mg PO TID PRN Anxiety 03/28/21 05/17/24 Unknown History bupropion HCl 150 mg 24 hr tablet, 150 mg PO DAILY 08/25/21 05/17/24 01/15/24 09:00 History extended release multivitamin with folic acid 400 1 tab PO DAILY 11/05/21 05/17/24 01/15/24 09:00 History mcg tablet (Daily-Sadi (with folic acid)) quetiapine 100 mg tablet 100 mg PO BEDTIME 11/05/21 05/17/24 09/07/22 22:00 History naltrexone 50 mg tablet 25 mg PO DAILY 02/19/22 05/17/24 01/15/24 09:00 History blood sugar diagnostic (FreeStyle #10 ea 05/19/22 04/20/24 Unknown History Lite Strips) blood-glucose meter (FreeStyle #1 ea 05/19/22 04/20/24 Unknown History [place] Lite kit) lancets 28 gauge (FreeStyle #100 ea 05/19/22 04/20/24 Unknown History Lancets) gabapentin 600 mg tablet 600 mg PO BID 06/18/22 05/17/24 01/15/24 09:00 History albuterol sulfate 90 mcg/actuation 2 puff PO Q6H PRN for wheezing 01/15/24 05/17/24 Unknown History aerosol inhaler (Ventolin HFA) aripiprazole 5 mg tablet 5 mg PO DAILY 01/15/24 05/17/24 01/15/24 09:00 History dicyclomine 10 mg capsule 10 mg PO TIDAC 01/15/24 05/17/24 01/15/24 09:00 History fluoxetine 20 mg capsule 20 mg PO DAILY 01/15/24 05/17/24 01/15/24 09:00 History fluoxetine 40 mg capsule 40 mg PO DAILY 01/15/24 05/17/24 01/15/24 09:00 History furosemide 20 mg tablet 20 mg PO DAILY 01/15/24 05/17/24 01/15/24 09:00 History hydroxyzine HCl 25 mg tablet 25 mg PO DAILY PRN Anxiety 01/15/24 05/17/24 Unknown History loperamide 2 mg capsule 2 mg PO QID PRN Diarrhea 01/15/24 05/17/24 Unknown History ondansetron 4 mg disintegrating 4 mg PO Q8H PRN Nausea And Vomiting 01/15/24 05/17/24 Unknown History tablet trazodone 50 mg tablet 50 mg PO BEDTIME 01/15/24 05/17/24 Unknown History acetaminophen 650 mg 650 mg PO Q8H 05/17/24 05/17/24 Unknown History tablet,extended release empagliflozin 25 mg tablet 25 mg PO DAILY 05/17/24 05/17/24 Unknown History (Jardiance) famotidine 20 mg tablet 20 mg PO DAILY 05/17/24 05/17/24 Unknown History smdxzn-[id number]-spdspjw 1 cap PO DAILY PRN SNACK 05/17/24 05/17/24 Unknown History 24,000-76,000-120,000 unit capsule,delayed rel (Creon) jkhhfe-ybejttrr-vimemug 2 cap PO TIDWM 05/17/24 05/17/24 Unknown History 24,000-76,000-120,000 unit capsule,delayed rel (Creon) Physical Exam 2 Vital Signs and Narrative: Vital Signs: Last Vital Signs Pulse 60 05/17/24 11:48 Resp 18 05/17/24 11:48 BP 141/87 H 05/17/24 11:48 Pulse Ox 100 05/17/24 11:48 O2 Del Method Nasal Cannula 05/17/24 11:48 Oxygen Flow Rate 2 05/17/24 11:48 BMI result Body Mass Index 25.8 General: AOx3,appears uncomfortable, in no acute distress Resp: CTA bilaterally CVS: S1, S2, RRR GI: +BS, no distention, but with periumbilical and epigastric abdominal pain. Skin: Warm, dry Neuro: Cranial nerves II-XII grossly intact bilaterally. Motor grossly intact bilaterally Extremities: No edema Psych: Appropriate affect Results Labs 05/17/24 11:54 05/18/24 06:06 Labs: Laboratory Results - last 24 hr 05/17/24 05/17/24 11:46 11:54 MCV 84.5 MCH 27.7 MCHC 32.8 RDW 14.2 Plt Count 202 MPV 10.3 Immature Gran % (Auto) 0.2 Neut % (Auto) 61.4 Lymph % (Auto) 26.7 Marshall % (Auto) 7.3 Eos % (Auto) 3.9 Baso % (Auto) 0.5 Lymph # (Auto) 2.2 Marshall # (Auto) 0.6 Eos # (Auto) 0.3 Baso # (Auto) 0.0 Abs Immat Gran (auto) 0.02 Absolute Neuts (auto) 4.9 Absolute Nucleated RBC 0.000 Nucleated RBC % (auto) 0.0 Anion Gap 17 Estim Creat Clear Calc 35.7 Estimated GFR 36 POC Glucose 94 Random Glucose 85 Calcium 10.1 Magnesium 2.3 Total Bilirubin 0.8 Direct Bilirubin 0.3 AST 31 ALT 33 Alkaline Phosphatase 80 Troponin I High Sens < 2.7 Total Protein 7.3 Albumin 4.4 Lipase 273 H Ethyl Alcohol < 10 Influenza Type A (PCR) NEGATIVE Influenza Type B (PCR) NEGATIVE RSV RNA Qual (PCR) NEGATIVE SARS-CoV-2 RNA (RT-PCR) NEGATIVE Assessment and Plan (1) Acute pancreatitis: Status: Acute Plan Pt is a 64-year-old male with a PMH significant for?alcohol use disorder, hx of alcohol withdrawal with seizures, HTN, HLD, ?paroxysmal AFib, chronic back pain BPH, CKD3, and VIRAJ on CPAP who presents to the ED with?intractable nausea, vomiting, diarrhea, and central, nonradiating abdominal pain x3 days. Pt will be admitted to the hospital for treatment and further evaluation of acute pancreatitis of unclear etiology. Acute pancreatitis Intractable N/V/D and abd pain x3 days Unable to tolerate p.o. Elevated lipase Unclear etiology: no CBD, LFTs WNL, reports last drank 14 months ago Will check triglycerides Will treat with bowel rest, IVF, IV analgesics, and IV antiemetics If abdominal pain continue/worsens will repeat imaging GI consult COPD Not in acute exacerbation Continue home inhalers HTN Continue amlodipine and metoprolol HLD continue statin Alcohol use disorder In remission, sober x14 months Full Code Attending:?Dr. Blake DVT Prophylaxis: Lovenox Due to patient's intractable N/V and inability to tolerate p.o., pt will require a hospitalization of at least two nights for treatment of?acute pancreatitis requiring IVF, IV analgesics, IV antiemetics, and GI consult. Quality Stroke Does the patient have a stroke diagnosis?: No VTE Prior VTE?: No VTE Risk Level:: Medical - moderate - high VTE Device Contraindication: Treatment Not Indicated VTE Drug Contraindication: N/A - Med Ordered
[2024-05-17 16:11] LABS: Cholesterol 175 mg/dL (<200); HDL Cholesterol 33 mg/dL (>40); LDL Cholesterol Calculated 96 mg/dL (<100); Triglycerides 232 mg/dL (<150)
[2024-05-17] MEDS: Morphine Sulfate 4 MG/ML CARTRIDGE 2 MG IVPUSH ×2 (16:35→20:15)
[2024-05-17] MEDS: Lactated Ringers 1,000 ML 100 ML IVCONT (16:37)
[2024-05-17] MEDS: Enoxaparin Sodium 40 MG/0.4 ML SYRINGE SUBCUT (17:33)
[2024-05-17 18:30] LABS: Amphetamine Screen Urine Not Detected (Not Detect); Barbiturates, Urine Not Detected (Not Detect); Benzodiazepines Screen Urine Not Detected (Not Detect); Buprenorphine Scr Not Detected (Not Detect); Cannabinoid Screen Urine Not Detected (Not Detect); Cocaine Screen Urine Not Detected (Not Detect); Fentanyl, urine Not Detected (Not Detect); Methadone Screen, Urine Not Detected (Not Detect); Opiate Screen Urine POSITIVE (Not Detect); Oxycodone Screen Urine Not Detected (Not Detect); Phencyclidine Screen Urine Not Detected (Not Detect)
--- NOTE | 2024-05-17 18:33 | PC.NURSE ---
pt has had several acute episodes of anxiety and panic. no vomiting or dry heaving noted. pt is difficult to redirect. medicated per mar. currently sleeping, no distress noted
--- NOTE | 2024-05-17 19:01 | PHA.MEDREC ---
Addendum entered by Rachid Spaulding [facility] 05/17/24 19:32: Med rec reviewed Original Note: Pharmacy Consult ? Medication Reconciliation Pharmacy has completed the medication reconciliation. Went to speak to patient in odom about his medications around [id number] and patient was visibly upset and shaking in bed just wanting something to not throw up and did not want to talk at that time. I went back down a bit later to speak with him again and patient was in a room now but sleeping and when I went in and tried waking him patient did not stir. I utilized claims and to confirm the medications. I called patients pharmacy to confirm the medications I had questions on and they were able to provide some information on them. I asked upon the Amlodipine and they confirmed the he picked up Amlodipine 5mg tabs on 01/23 but on 02/[address] discontinued that medication. I asked upon Arpiprazole 5mg tabs and they state he filled that 01/23 for 90 days and hasn't tried filling it since or that he is stopping it. I asked about the Creon and they stated his Creon was filled 03/24 for 28 days and state he has not tried filling that or that he is stopping it. I asked about the Dicyclomine 10mg and they sate he has not gotten that since 02/24 for 30 days and he has not tried filling that since or that he is stopping it. They state the Dr also discontinued the Metoprolol 25mg tab on 02/03. I asked about the Naltrexone 50mg tab and they stated he filled that 04/13 for 30 days and has not tried to refill it yet or that he is stopping it. I asked about the Tizanidine 2mg and they confirmed he filled that on 03/01 for 28 days and nothing since or that he is stopping it. I asked about the Trazodone 50mg and they stated he got Trazodone 50mg tabs 01/19 for 90 and has not filled that since or that he is stopping it. I asked about the Trellegy
[2024-05-17 19:03] LABS: Appearance Urine Clear; Color Urine Yellow; Glucose Urine UA Negative (Negative); Leukocyte Esterase Urine Trace (Negative); Nitrite Urine Negative (Negative); PH 8.5 (5.0-9.0); UMIC TRIGGER UACC YES; Urine Blood Negative (Negative); Urine Ketones Negative (Negative); Urine Protein Negative (Neg-Trace)
[2024-05-17 19:11] LABS: Bacteria Urine None Seen (None Seen); Hyaline Casts Urine 0-2 /LPF (0-2); RBC Urine 0-2 /HPF (0-2); Squamous Epithelial Cell Urine 0-2 /HPF (0-2); WBC Urine 0-5 /HPF (0-5)
[2024-05-17] MEDS: ondansetron HCL 4 MG/2 ML VIAL IVPUSH (20:15)
[2024-05-17] MEDS: Loperamide HCl 2 MG CAPSULE PO (21:38)
[2024-05-17] MEDS: LORazepam 1 MG TABLET PO (21:38)
[2024-05-17] MEDS: QUEtiapine Fumarate 100 MG TABLET PO (21:38)
[2024-05-17] MEDS: Gabapentin 600 MG TABLET PO (21:38)
[2024-05-17] MEDS: traZODone HCL 50 MG TABLET PO (21:38)
[2024-05-17] MEDS: Benzonatate 100 MG CAPSULE PO (23:43)
[2024-05-17] MEDS: oxyCODONE HCl Immed Release 5 MG TABLET PO (23:43)
--- OUTSIDE RECORDS SUMMARY | 2024-05-18 02:00 | XMS_ITS | Clinical Summary ---
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 Per instructio ns 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 (route: transderma l) Med Classific ation: Endocrine Trelegy Ellipta 200 mcg-62.5 mcg-25 mcg powder for inhalation 02-11 00:00: 00 09-01 00:00 :00 No [id number] Per instruc tions EVERY DAY Per instructio ns EVERY DAY (route: inhalation ) Med Classific ation: Respirato ry Therapy Agents azelastine 137 mcg (0.1 %) nasal spray aerosol 09-01 00:00: 00 Yes [id number] Per instruc tions 1 SPRAY INTRANASAL LY TWICE A DAY Per instructio ns 1 SPRAY INTRANASAL LY TWICE A DAY (route: nasal) Med Classific ation: Respirato ry Therapy Agents aspirin 81 mg tablet,olya yed release 09-01 00:00: 00 Yes [id number] 1 tablet DAILY 1 tablet DAILY (route: oral) Med Classific ation: Hematolog ical Agents Alcohol Prep Pads 09-01 00:00: 00 Yes [id number] Per instruc tions 3 TIMES DAILY Per instructio ns 3 TIMES DAILY (route: topical) Med Classific ation: Antisepti cs and Disinfect ants furosemide 40 mg tablet 02-28 00:00: 00 09-01 23:59 :00 No [id number] 1 tablet 2 TIMES DAILY 1 tablet 2 TIMES DAILY (route: oral) Med Classific ation: Cardiovas cular Therapy Agents lorazepam 1 mg tablet 09-01 00:00: 00 Yes [id number] Per instruc tions THREE TIMES A DAY NEEDED Per instructio ns THREE TIMES A DAY NEEDED (route: oral) Med Classific ation: Central Nervous System Agents acetaminoph en ER 650 mg tablet,exte nded release 09-01 00:00: 00 Yes [id number] 1 tablet EVERY 8 HOURS 1 tablet EVERY 8 HOURS (route: oral) Med Classific ation: Analgesic , Anti-infl ammatory or Antipyret ic quetiapine 50 mg tablet 09-01 00:00: 00 11-17 23:59 :00 No [id number] Per instruc tions EVERY DAY NEEDED Per instructio ns EVERY DAY NEEDED (route: oral) Med Classific ation: Central Nervous System Agents metoprolol tartrate 25 mg tablet 09-01 00:00: 00 Yes [id number] 1 tablet TWICE A DAY 1 tablet TWICE A DAY (route: oral) Med Classific ation: Cardiovas cular Therapy Agents amlodipine 10 mg tablet 09-01 00:00: 00 09-01 23:59 :00 No [id number] 1 tablet DAILY 1 tablet DAILY (route: oral) Med Classific ation: Cardiovas cular Therapy Agents atorvastati n 80 mg tablet 09-01 00:00: 00 Yes [id number] 1 tablet BEDTIME 1 tablet BEDTIME (route: oral) Med Classific ation: Cardiovas cular Therapy Agents bupropion HCl XL 300 mg 24 hr tablet, extended release 09-01 00:00: 00 03-30 23:59 :00 No [id number] 1 tablet DAILY 1 tablet DAILY (route: oral) Med Classific ation: Central Nervous System Agents fluoxetine 40 mg capsule 09-01 00:00: 00 Yes [id number] 2 capsule DAILY 2 capsule DAILY (route: oral) Med Classific ation: Central Nervous System Agents gabapentin 600 mg tablet 09-01 00:00: 00 Yes [id number] 1 tablet 2 TIMES DAILY 1 tablet 2 TIMES DAILY (route: oral) Med Classific ation: Central Nervous System Agents ipratropium 0.5 mg-albutero l 3 mg (2.5 mg base)/3 mL nebulizatio n soln 09-01 00:00: 00 Yes [id number] Per instruc tions NEEDED Per instructio ns NEEDED (route: inhalation ) Med Classific ation: Respirato ry Therapy Agents Jardiance 25 mg tablet 02-28 00:00: 00 06-23 23:59 :00 No [id number] 2 tablet DAILY 2 tablet DAILY (route: oral) Med Classific ation: Endocrine melatonin 10 mg capsule 09-01 00:00: 00 Yes [id number] 1 capsule BEDTIME 1 capsule BEDTIME (route: oral) Med Classific ation: Central Nervous System Agents metoprolol tartrate 25 mg tablet 02-28 00:00: 00 09-01 00:00 :00 No [id number] 1 tablet 2 TIMES DAILY 1 tablet 2 TIMES DAILY (route: oral) Med Classific ation: Cardiovas cular Therapy Agents prednisone 5 mg tablet 02-28 00:00: 00 09-01 00:00 :00 No [id number] 1 tablet DAILY 1 tablet DAILY (route: oral) Med Classific ation: Endocrine quetiapine 100 mg tablet 09-01 00:00: 00 Yes [id number] 1 tablet BEDTIME 1 tablet BEDTIME (route: oral) Med Classific ation: Central Nervous System Agents quetiapine 50 mg tablet 09-01 00:00: 00 11-17 23:59 :00 No [id number] 1 tablet DAILY 1 tablet DAILY (route: oral) Med Classific ation: Central Nervous System Agents sulindac 150 mg tablet 02-28 00:00: 00 09-01 00:00 :00 No [id number] 1 tablet 2 TIMES DAILY 1 tablet 2 TIMES DAILY (route: oral) Med Classific ation: Analgesic , Anti-infl ammatory or Antipyret ic tadalafil 10 mg tablet 09-01 00:00: 00 Yes [id number] 1 tablet DAILY 1 tablet DAILY (route: oral) Med Classific ation: Drugs to treat Erectile Dysfuncti on terazosin 5 mg capsule 09-01 00:00: 00 Yes [id number] 1 capsule BEDTIME 1 capsule BEDTIME (route: oral) Med Classific ation: Cardiovas cular Therapy Agents trazodone 50 mg tablet 09-01 00:00: 00 Yes [id number] 1 tablet BEDTIME 1 tablet BEDTIME (route: oral) Med Classific ation: Central Nervous System Agents Trelegy Ellipta 200 mcg-62.5 mcg-25 mcg powder for inhalation 09-01 00:00: 00 Yes [id number] 2 inhalat ion DAILY 2 inhalation DAILY (route: inhalation ) Med Classific ation: Respirato ry Therapy Agents Vitamin D3 25 mcg (1,000 unit) capsule 09-01 00:00: 00 Yes [id number] 1 capsule DAILY 1 capsule DAILY (route: oral) Med Classific ation: Electroly te Balance-N utritiona l Products Wellbutrin XL 150 mg 24 hr tablet, extended release 09-01 00:00: 00 Yes [id number] 1 tablet DAILY 1 tablet DAILY (route: oral) Med Classific ation: Central Nervous System Agents sulindac 150 mg tablet 2022-06 00:00: 00 09-01 00:00 :00 No [id number] 150 mg 2 TIMES DAILY 150 mg 2 TIMES DAILY (route: oral) Med Classific ation: Analgesic , Anti-infl ammatory or Antipyret ic metformin 850 mg tablet 06-28 00:00: 00 09-01 23:59 :00 No [id number] 1 tablet 2 TIMES DAILY 1 tablet 2 TIMES DAILY (route: oral) Med Classific ation: Endocrine amlodipine 5 mg tablet 09-01 00:00: 00 Yes [id number] 1 tablet DAILY 1 tablet DAILY (route: oral) Med Classific ation: Cardiovas cular Therapy Agents Fiber (with aspartame) 3.4 gram/5.8 gram oral powder 09-01 00:00: 00 Yes [id number] 5 g DAILY 5 g DAILY (route: oral) Med Classific ation: Gastroint estinal Therapy Agents furosemide 20 mg tablet 09-01 00:00: 00 Yes [id number] 1 tablet DAILY 1 tablet DAILY (route: oral) Med Classific ation: Cardiovas cular Therapy Agents Abilify 5 mg tablet 6-13 00:00: 00 Yes [id number] 1 tablet DAILY 1 tablet DAILY (route: oral) Med Classific ation: Central Nervous System Agents potassium chloride ER 10 mEq tablet,exte nded release 01-19 00:00: 00 01-20 23:59 :00 No [id number] 1 tablet DAILY 1 tablet DAILY (route: oral) Med Classific ation: Electroly te Balance-N utritiona l Products tizanidine 2 mg tablet 01-19 00:00: 00 Yes [id number] 1 tablet EVERY 8 HOURS 1 tablet EVERY 8 HOURS (route: oral) Med Classific ation: Locomotor System Creon 58,697-42,[id number] 00-120,000 unit capsule,del ayed release 2023-06 024 00:00: 00 Yes [id number] 1 capsule 3 TIMES DAILY 1 capsule 3 TIMES DAILY (route: oral) Med Classific ation: Gastroint estinal Therapy Agents dicyclomine 10 mg capsule 2023-06 024 00:00: 00 Yes [id number] 1 capsule 4 TIMES DAILY 1 capsule 4 TIMES DAILY (route: oral) Med Classific ation: Gastroint estinal Therapy Agents tolterodine ER 4 mg capsule,ext ended release 24 hr 2023-0624 00:00: 00 Yes [id number] 1 capsule DAILY 1 capsule DAILY (route: [...] AWARENESS FOR SAFETY AND WILL NOTIFY CLINICAL CARDIAC MONITOR AND PHYSICIAN/PROVIDER WITH ANY CHANGE IN CONDITION. [code = SKILLED NURSE WILL MAINTAIN SITUATIONAL AWARENESS FOR SAFETY AND WILL NOTIFY CLINICAL CARDIAC MONITOR AND PHYSICIAN/PROVIDER WITH ANY CHANGE IN CONDITION.] [...] SYMPTOMS OF SUBSTANCE USE INCLUDING PARTICIPATION IN [facility] SPECIALTY PROGRAM. INSTRUCT PATIENT ON RELATED RISKS AND WILL NOTIFY TREATMENT TEAM NEEDED. [code = SKILLED NURSE FOR O/A OF SIGNS AND SYMPTOMS OF SUBSTANCE USE INCLUDING PARTICIPATION IN [facility] SPECIALTY PROGRAM. INSTRUCT PATIENT ON RELATED RISKS AND WILL NOTIFY TREATMENT TEAM NEEDED.] Goal 2023-10-28 Patient Goal - NO HOSPITALIZ ATION Goal 2023-12-28 Patient Goal - NO HOSPITALIZ ATION Goal 2024-02-24 Patient Goal - NO HOSPITALIZ ATION Goal 2024-04-27 Patient Goal - STAY OUT OF T HOSPITAL Goal Patient Goal - [facility] Goal Provider Goal - A PLAN OF CARE WILL BE ESTABLISHED THAT MEETS PATIENT'S PENITENTIARY NEEDS AND INCLUDES PATIENT GOAL FOR HOME [...] End Date/Time Encounter Type Admission Type Attending [facility] Care Department Encounter ID Discharge Date Discharge Status Discharge Condition Discharge Reason Percent Goals Met 2023-09-02 00:00:00 2024-06-27 00:00:00 Outpatient RECERTIFIC ATION LUIS OGDEN [facility] [id number] 20.00
--- OUTSIDE RECORDS SUMMARY | 2024-05-18 02:00 | XMS_ITS | Clinical Summary ---
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 Per instructio ns 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 (route: transderma l) Med Classific ation: Endocrine Trelegy Ellipta 200 mcg-62.5 mcg-25 mcg powder for inhalation 02-11 00:00: 00 09-01 00:00 :00 No [id number] Per instruc tions EVERY DAY Per instructio ns EVERY DAY (route: inhalation ) Med Classific ation: Respirato ry Therapy Agents azelastine 137 mcg (0.1 %) nasal spray aerosol 09-01 00:00: 00 Yes [id number] Per instruc tions 1 SPRAY INTRANASAL LY TWICE A DAY Per instructio ns 1 SPRAY INTRANASAL LY TWICE A DAY (route: nasal) Med Classific ation: Respirato ry Therapy Agents aspirin 81 mg tablet,olya yed release 09-01 00:00: 00 Yes [id number] 1 tablet DAILY 1 tablet DAILY (route: oral) Med Classific ation: Hematolog ical Agents Alcohol Prep Pads 09-01 00:00: 00 Yes [id number] Per instruc tions 3 TIMES DAILY Per instructio ns 3 TIMES DAILY (route: topical) Med Classific ation: Antisepti cs and Disinfect ants furosemide 40 mg tablet 02-28 00:00: 00 09-01 23:59 :00 No [id number] 1 tablet 2 TIMES DAILY 1 tablet 2 TIMES DAILY (route: oral) Med Classific ation: Cardiovas cular Therapy Agents lorazepam 1 mg tablet 09-01 00:00: 00 Yes [id number] Per instruc tions THREE TIMES A DAY NEEDED Per instructio ns THREE TIMES A DAY NEEDED (route: oral) Med Classific ation: Central Nervous System Agents acetaminoph en ER 650 mg tablet,exte nded release 09-01 00:00: 00 Yes [id number] 1 tablet EVERY 8 HOURS 1 tablet EVERY 8 HOURS (route: oral) Med Classific ation: Analgesic , Anti-infl ammatory or Antipyret ic quetiapine 50 mg tablet 09-01 00:00: 00 11-17 23:59 :00 No [id number] Per instruc tions EVERY DAY NEEDED Per instructio ns EVERY DAY NEEDED (route: oral) Med Classific ation: Central Nervous System Agents metoprolol tartrate 25 mg tablet 09-01 00:00: 00 Yes [id number] 1 tablet TWICE A DAY 1 tablet TWICE A DAY (route: oral) Med Classific ation: Cardiovas cular Therapy Agents amlodipine 10 mg tablet 09-01 00:00: 00 09-01 23:59 :00 No [id number] 1 tablet DAILY 1 tablet DAILY (route: oral) Med Classific ation: Cardiovas cular Therapy Agents atorvastati n 80 mg tablet 09-01 00:00: 00 Yes [id number] 1 tablet BEDTIME 1 tablet BEDTIME (route: oral) Med Classific ation: Cardiovas cular Therapy Agents bupropion HCl XL 300 mg 24 hr tablet, extended release 09-01 00:00: 00 03-30 23:59 :00 No [id number] 1 tablet DAILY 1 tablet DAILY (route: oral) Med Classific ation: Central Nervous System Agents fluoxetine 40 mg capsule 09-01 00:00: 00 Yes [id number] 2 capsule DAILY 2 capsule DAILY (route: oral) Med Classific ation: Central Nervous System Agents gabapentin 600 mg tablet 09-01 00:00: 00 Yes [id number] 1 tablet 2 TIMES DAILY 1 tablet 2 TIMES DAILY (route: oral) Med Classific ation: Central Nervous System Agents ipratropium 0.5 mg-albutero l 3 mg (2.5 mg base)/3 mL nebulizatio n soln 09-01 00:00: 00 Yes [id number] Per instruc tions NEEDED Per instructio ns NEEDED (route: inhalation ) Med Classific ation: Respirato ry Therapy Agents Jardiance 25 mg tablet 02-28 00:00: 00 06-23 23:59 :00 No [id number] 2 tablet DAILY 2 tablet DAILY (route: oral) Med Classific ation: Endocrine melatonin 10 mg capsule 09-01 00:00: 00 Yes [id number] 1 capsule BEDTIME 1 capsule BEDTIME (route: oral) Med Classific ation: Central Nervous System Agents metoprolol tartrate 25 mg tablet 02-28 00:00: 00 09-01 00:00 :00 No [id number] 1 tablet 2 TIMES DAILY 1 tablet 2 TIMES DAILY (route: oral) Med Classific ation: Cardiovas cular Therapy Agents prednisone 5 mg tablet 02-28 00:00: 00 09-01 00:00 :00 No [id number] 1 tablet DAILY 1 tablet DAILY (route: oral) Med Classific ation: Endocrine quetiapine 100 mg tablet 09-01 00:00: 00 Yes [id number] 1 tablet BEDTIME 1 tablet BEDTIME (route: oral) Med Classific ation: Central Nervous System Agents quetiapine 50 mg tablet 09-01 00:00: 00 11-17 23:59 :00 No [id number] 1 tablet DAILY 1 tablet DAILY (route: oral) Med Classific ation: Central Nervous System Agents sulindac 150 mg tablet 02-28 00:00: 00 09-01 00:00 :00 No [id number] 1 tablet 2 TIMES DAILY 1 tablet 2 TIMES DAILY (route: oral) Med Classific ation: Analgesic , Anti-infl ammatory or Antipyret ic tadalafil 10 mg tablet 09-01 00:00: 00 Yes [id number] 1 tablet DAILY 1 tablet DAILY (route: oral) Med Classific ation: Drugs to treat Erectile Dysfuncti on terazosin 5 mg capsule 09-01 00:00: 00 Yes [id number] 1 capsule BEDTIME 1 capsule BEDTIME (route: oral) Med Classific ation: Cardiovas cular Therapy Agents trazodone 50 mg tablet 09-01 00:00: 00 Yes [id number] 1 tablet BEDTIME 1 tablet BEDTIME (route: oral) Med Classific ation: Central Nervous System Agents Trelegy Ellipta 200 mcg-62.5 mcg-25 mcg powder for inhalation 09-01 00:00: 00 Yes [id number] 2 inhalat ion DAILY 2 inhalation DAILY (route: inhalation ) Med Classific ation: Respirato ry Therapy Agents Vitamin D3 25 mcg (1,000 unit) capsule 09-01 00:00: 00 Yes [id number] 1 capsule DAILY 1 capsule DAILY (route: oral) Med Classific ation: Electroly te Balance-N utritiona l Products Wellbutrin XL 150 mg 24 hr tablet, extended release 09-01 00:00: 00 Yes [id number] 1 tablet DAILY 1 tablet DAILY (route: oral) Med Classific ation: Central Nervous System Agents sulindac 150 mg tablet 2022-06 00:00: 00 09-01 00:00 :00 No [id number] 150 mg 2 TIMES DAILY 150 mg 2 TIMES DAILY (route: oral) Med Classific ation: Analgesic , Anti-infl ammatory or Antipyret ic metformin 850 mg tablet 06-28 00:00: 00 09-01 23:59 :00 No [id number] 1 tablet 2 TIMES DAILY 1 tablet 2 TIMES DAILY (route: oral) Med Classific ation: Endocrine amlodipine 5 mg tablet 09-01 00:00: 00 Yes [id number] 1 tablet DAILY 1 tablet DAILY (route: oral) Med Classific ation: Cardiovas cular Therapy Agents Fiber (with aspartame) 3.4 gram/5.8 gram oral powder 09-01 00:00: 00 Yes [id number] 5 g DAILY 5 g DAILY (route: oral) Med Classific ation: Gastroint estinal Therapy Agents furosemide 20 mg tablet 09-01 00:00: 00 Yes [id number] 1 tablet DAILY 1 tablet DAILY (route: oral) Med Classific ation: Cardiovas cular Therapy Agents Abilify 5 mg tablet 6-13 00:00: 00 Yes [id number] 1 tablet DAILY 1 tablet DAILY (route: oral) Med Classific ation: Central Nervous System Agents potassium chloride ER 10 mEq tablet,exte nded release 01-19 00:00: 00 01-20 23:59 :00 No [id number] 1 tablet DAILY 1 tablet DAILY (route: oral) Med Classific ation: Electroly te Balance-N utritiona l Products tizanidine 2 mg tablet 01-19 00:00: 00 Yes [id number] 1 tablet EVERY 8 HOURS 1 tablet EVERY 8 HOURS (route: oral) Med Classific ation: Locomotor System Creon 19,861-77,[id number] 00-120,000 unit capsule,del ayed release 2023-06 024 00:00: 00 Yes [id number] 1 capsule 3 TIMES DAILY 1 capsule 3 TIMES DAILY (route: oral) Med Classific ation: Gastroint estinal Therapy Agents dicyclomine 10 mg capsule 2023-06 024 00:00: 00 Yes [id number] 1 capsule 4 TIMES DAILY 1 capsule 4 TIMES DAILY (route: oral) Med Classific ation: Gastroint estinal Therapy Agents tolterodine ER 4 mg capsule,ext ended release 24 hr 2023-0624 00:00: 00 Yes [id number] 1 capsule DAILY 1 capsule DAILY (route: [...] AWARENESS FOR SAFETY AND WILL NOTIFY CLINICAL DIESEL BUS MECHANIC AND PHYSICIAN/PROVIDER WITH ANY CHANGE IN CONDITION. [code = SKILLED NURSE WILL MAINTAIN SITUATIONAL AWARENESS FOR SAFETY AND WILL NOTIFY CLINICAL DIESEL BUS MECHANIC AND PHYSICIAN/PROVIDER WITH ANY CHANGE IN CONDITION.] [...] SYMPTOMS OF SUBSTANCE USE INCLUDING PARTICIPATION IN [facility] SPECIALTY PROGRAM. INSTRUCT PATIENT ON RELATED RISKS AND WILL NOTIFY TREATMENT TEAM NEEDED. [code = SKILLED NURSE FOR O/A OF SIGNS AND SYMPTOMS OF SUBSTANCE USE INCLUDING PARTICIPATION IN [facility] SPECIALTY PROGRAM. INSTRUCT PATIENT ON RELATED RISKS AND WILL NOTIFY TREATMENT TEAM NEEDED.] Goal 2023-10-28 Patient Goal - NO HOSPITALIZ ATION Goal 2023-12-28 Patient Goal - NO HOSPITALIZ ATION Goal 2024-02-24 Patient Goal - NO HOSPITALIZ ATION Goal 2024-04-27 Patient Goal - STAY OUT OF T HOSPITAL Goal Patient Goal - [facility] Goal Provider Goal - A PLAN OF CARE WILL BE ESTABLISHED THAT MEETS PATIENT'S [facility] NEEDS AND INCLUDES PATIENT GOAL FOR HOME [...] End Date/Time Encounter Type Admission Type Attending [facility] Care Department Encounter ID Discharge Date Discharge Status Discharge Condition Discharge Reason Percent Goals Met 2023-09-02 00:00:00 2024-06-27 00:00:00 Outpatient RECERTIFIC ATION LUIS OGDEN [facility] [id number] 20.00
[2024-05-18 02:19] VITALS: BMI 26.3
[2024-05-18 03:29] VITALS: BP 145/68; PULSE 54; RESP 16; TEMP 36.4; O2SAT 94
[2024-05-18] MEDS: Lactated Ringers 1,000 ML 100 ML IVCONT ×3 (03:31→20:50)
[2024-05-18 07:02] LABS: Anion Gap 11 (12-20); Blood Urea Nitrogen 10 mg/dL (9-16); Calcium 8.7 mg/dL (8.4-10.2); Carbon Dioxide 23 mmol/L (22-29); Chloride 111 mmol/L (96-108); Estimated Glomerular Filt Rate 46; Glucose Random 78 mg/dL (60-115); Potassium 3.4 mmol/L (3.3-5.1); Sodium 142 mmol/L (135-145)
[2024-05-18 07:52] VITALS: BP 117/65; PULSE 56; RESP 18; TEMP 36.6; O2SAT 92
[2024-05-18] MEDS: oxyCODONE HCl Immed Release 5 MG TABLET PO ×2 (08:11→16:23)
[2024-05-18] MEDS: Lipase/Prot/Amylase 24/76/120K 1 CAP CAPSULE.DR 2 CAP PO ×3 (08:11→16:23)
[2024-05-18] MEDS: Potassium Chloride ER 10 MEQ TABLET.ER PO (08:12)
[2024-05-18] MEDS: FLUoxetine HCl 20 MG CAPSULE 40 MG PO (08:12)
[2024-05-18] MEDS: Naltrexone HCl 50 MG TABLET 25 MG PO (08:12)
[2024-05-18] MEDS: Aspirin Enteric Coated 81 MG TABLET.DR PO (08:12)
[2024-05-18] MEDS: FLUoxetine HCl 20 MG CAPSULE PO (08:12)
[2024-05-18] MEDS: Atorvastatin Calcium 80 MG TABLET PO (08:12)
[2024-05-18 08:13] VITALS: BP 117/65; PULSE 56
[2024-05-18] MEDS: Famotidine 20 MG TABLET PO (08:13)
[2024-05-18] MEDS: Metoprolol Tartrate 25 MG TABLET PO ×2 (08:13→20:47)
[2024-05-18] MEDS: Tolterodine Tartrate LA 4 MG CAP.ER.24H PO (08:13)
[2024-05-18] MEDS: ARIPiprazole 5 MG TABLET PO (08:13)
[2024-05-18] MEDS: Dicyclomine HCl 10 MG CAPSULE PO ×3 (08:13→16:23)
[2024-05-18] MEDS: Multivitamin TABLET 1 TAB PO (08:13)
[2024-05-18] MEDS: Gabapentin 600 MG TABLET PO ×2 (08:13→20:47)
[2024-05-18] MEDS: buPROPion HCl XL 150 MG TAB.ER.24H PO (08:13)
[2024-05-18 08:14] VITALS: BP 117/65
[2024-05-18] MEDS: Empagliflozin 25 MG TABLET PO (08:14)
[2024-05-18] MEDS: Furosemide 20 MG TABLET PO (08:14)
[2024-05-18] MEDS: Cholecalciferol (Vitamin D3) 25 MCG TABLET PO (08:14)
--- NOTE | 2024-05-18 09:12 | MHC.CM.PN ---
Addendum entered by Rena Rodriguez RN 05/18/24 14:35: Per [facility], patient is active w/ [facility] for SN. Return referral sent via [facility]. Patient also has homemaking services. Original Note: IMM DELIVERED. PATIENT LIVES IN AN APARTMENT ALONE. FUNCTIONALLY INDEPENDENT. USES CANE PRN FOR PAIN. USES CPAP, SUPPLIES VIA [facility]. PCP BRENT PARR MD REPORTS HE HAS AN HCP NAMING HIS DAUGHTER, DAVID, HCA. COPY REQUESTED. DP: GOAL IS HOME SELF CARE. MAY NEED SHUTTLE/LYFT RIDE. CM WILL CONTINUE TO FOLLOW.
--- NOTE | 2024-05-18 10:39 | HO.PM.IMPN ---
Subjective Subjective Date of Service: 05/18/24 Interval History: acute pancreatitis Review of Systems abd pain seems improving no nausea /vomiting has diarrhae Physical Exam Vital Signs: Vital Signs: Last Vital Signs Temp 97.8 F 05/18/24 07:52 Pulse 56 05/18/24 08:13 Resp 18 05/18/24 07:52 BP 117/65 05/18/24 08:14 Pulse Ox 92 05/18/24 07:52 O2 Del Method Room Air 05/18/24 07:52 Oxygen Flow Rate 2 05/17/24 11:48 BMI result Body Mass Index 26.3 Appearance: Alert.? Oriented X3. cvs: rrr, [id number] . res: clear to auscultation ,no rhonchii or wheezing abd: no rebound or guarding ,nt, bs present. ext pulses present , no cyanosis. neuro: axo3 , nonfocal. Objective Data Active Medications Acetaminophen (Acetaminophen 325 Mg Tablet) 650 mg PO Q6H PRN PRN Reason: Pain, Mild (Pain Scale 1-3), fever or headache Albuterol Sulfate (Albuterol Sulfate 90 Mcg 8 Gm Inhaler) 2 puff INHALE Q6H PRN PRN Reason: for wheezing Lipase/Protease/Amylase (Lipase/Prot/Amylase 24/76/120k 1 Cap Capsule.) 1 cap PO DAILY PRN PRN Reason: SNACK Lipase/Protease/Amylase (Lipase/Prot/Amylase 24/76/120k 1 Cap Capsule.) 2 cap PO TIDWM [facility] Last Admin: 05/18/24 08:11 Dose: 2 cap Documented By: ISACC Aripiprazole (Aripiprazole 5 Mg Tablet) 5 mg PO DAILY [facility] Last Admin: 05/18/24 08:13 Dose: 5 mg Documented By: ISACC Aspirin (Aspirin Enteric Coated 81 Mg Tablet.) 81 mg PO DAILY [facility] Last Admin: 05/18/24 08:12 Dose: 81 mg Documented By: ISACC Atorvastatin Calcium (Atorvastatin Calcium 80 Mg Tablet) 80 mg PO DAILY [facility] Last Admin: 05/18/24 08:12 Dose: 80 mg Documented By: ISACC Azelastine HCl (Azelastine Hcl Nasal 137 Mcg/[place] 30 Ml) 1 spray NOSTRIL-B BID [facility] Last Admin: 05/18/24 08:25 Dose: Not Given Documented By: ISACC Non-Admin Reason: Patient Refused Benzonatate (Benzonatate 100 Mg Capsule) 100 mg PO TID PRN PRN Reason: Cough Last Admin: 05/17/24 23:43 Dose: 100 mg Documented By: OSEAS Bupropion HCl (Bupropion Hcl Xl 150 Mg Tab.Er.24h) 150 mg PO DAILY [facility] Last Admin: 05/18/24 08:13 Dose: 150 mg Documented By: ISACC Calcium Carbonate (Calcium Carbonate 750 Mg Tab.Chew) 750 mg PO Q4H PRN PRN Reason: Heartburn Dicyclomine HCl (Dicyclomine Hcl 10 Mg Capsule) 10 mg PO TIDAC [facility] Last Admin: 05/18/24 08:13 Dose: 10 mg Documented By: ISACC Empagliflozin (Empagliflozin 25 Mg Tablet) 25 mg PO DAILY [facility] Last Admin: 05/18/24 08:14 Dose: 25 mg Documented By: ISACC Enoxaparin Sodium (Enoxaparin Sodium 40 Mg/0.4 Ml Syringe) 40 mg SUBCUT Q24H [facility] Last Admin: 05/17/24 17:33 Dose: 40 mg Documented By: VILMA Famotidine (Famotidine 20 Mg Tablet) 20 mg PO DAILY [facility] Last Admin: 05/18/24 08:13 Dose: 20 mg Documented By: ISACC Fluoxetine HCl (Fluoxetine Hcl 20 Mg Capsule) 20 mg PO DAILY [facility] Last Admin: 05/18/24 08:12 Dose: 20 mg Documented By: ISACC Fluoxetine HCl (Fluoxetine Hcl 20 Mg Capsule) 40 mg PO DAILY [facility] Last Admin: 05/18/24 08:12 Dose: 40 mg Documented By: ISACC Furosemide (Furosemide 20 Mg Tablet) 20 mg PO DAILY [facility]; Protocol Last Admin: 05/18/24 08:14 Dose: 20 mg Documented By: ISACC Gabapentin (Gabapentin 600 Mg Tablet) 600 mg PO BID [facility] Last Admin: 05/18/24 08:13 Dose: 600 mg Documented By: ISACC Hydroxyzine HCl (Hydroxyzine Hcl 25 Mg Tablet) 25 mg PO DAILY PRN PRN Reason: Anxiety Lactated Ringer's (Lr) 1,000 mls @ 100 mls/hr IVCONT .Q10H [facility] Last Admin: 05/18/24 03:31 Dose: 100 mls/hr Documented By: OSEAS Loperamide HCl (Loperamide Hcl 2 Mg Capsule) 2 mg PO QID PRN PRN Reason: Diarrhea Last Admin: 05/17/24 21:38 Dose: 2 mg Documented By: OSEAS Lorazepam (Lorazepam 1 Mg Tablet) 1 mg PO TID PRN PRN Reason: Anxiety Last Admin: 05/17/24 21:38 Dose: 1 mg Documented By: OSEAS Magnesium Hydroxide (Milk Of Magnesia 30 Ml Oral.Susp) 30 ml PO DAILY PRN PRN Reason: Constipation Melatonin (Melatonin 3 Mg Tablet) 6 mg PO BEDTIME PRN PRN Reason: Insomnia Metoprolol Tartrate (Metoprolol Tartrate 25 Mg Tablet) 25 mg PO BID [facility]; Protocol Last Admin: 05/18/24 08:13 Dose: 25 mg Documented By: ISACC Multivitamins/Vitamin C (Multivitamin Tablet) 1 tab PO DAILY [facility] Last Admin: 05/18/24 08:13 Dose: 1 tab Documented By: ISACC Naltrexone HCl (Naltrexone Hcl 50 Mg Tablet) 25 mg PO DAILY [facility] Last Admin: 05/18/24 08:12 Dose: 25 mg Documented By: ISACC Ondansetron HCl (Ondansetron Hcl 4 Mg/2 Ml Vial) 4 mg IVPUSH Q6H PRN PRN Reason: Nausea and Vomiting Last Admin: 05/17/24 20:15 Dose: 4 mg Documented By: AIED Oxycodone HCl (Oxycodone Hcl Immed Release 5 Mg Tablet) 5 mg PO Q6H PRN PRN Reason: Pain, Moderate(Pain Scale 4-6) Last Admin: 05/18/24 08:11 Dose: 5 mg Documented By: ISACC Potassium Chloride (Potassium Chloride Er 10 Meq Tablet.Er) 10 meq PO DAILY [facility] Last Admin: 05/18/24 08:12 Dose: 10 meq Documented By: ISACC Quetiapine Fumarate (Quetiapine Fumarate 100 Mg Tablet) 100 mg PO BEDTIME [facility] Last Admin: 05/17/24 21:38 Dose: 100 mg Documented By: OSEAS Sodium Chloride (0.9 % Sodium Chloride Flush 3 Ml Syringe) 3 ml IVFLUSH QSHIFT [facility] Last Admin: 05/18/24 07:23 Dose: Not Given Documented By: ISACC Non-Admin Reason: IV Running Tolterodine Tartrate (Tolterodine Tartrate [place] 4 Mg Cap.Er.24h) 4 mg PO DAILY [facility] Last Admin: 05/18/24 08:13 Dose: 4 mg Documented By: ISACC Trazodone HCl (Trazodone Hcl 50 Mg Tablet) 50 mg PO BEDTIME [facility] Last Admin: 05/17/24 21:38 Dose: 50 mg Documented By: OSEAS Vitamin D (Cholecalciferol (Vitamin D3) 25 Mcg Tablet) 25 mcg PO DAILY [facility] Last Admin: 05/18/24 08:14 Dose: 25 mcg Documented By: ISACC Labs 05/17/24 11:54 05/18/24 06:06 Labs: Laboratory Results - last 24 hr 05/17/24 05/17/24 05/17/24 11:46 11:54 18:08 MCV 84.5 MCH 27.7 MCHC 32.8 RDW 14.2 Plt Count 202 MPV 10.3 Immature Gran % (Auto) 0.2 Neut % (Auto) 61.4 Lymph % (Auto) 26.7 [place] % (Auto) 7.3 Eos % (Auto) 3.9 Baso % (Auto) 0.5 Lymph # (Auto) 2.2 [place] # (Auto) 0.6 Eos # (Auto) 0.3 Baso # (Auto) 0.0 Abs Immat Gran (auto) 0.02 Absolute Neuts (auto) 4.9 Absolute Nucleated RBC 0.000 Nucleated RBC % (auto) 0.0 Anion Gap 17 Estim Creat Clear Calc 35.7 Estimated GFR 36 POC Glucose 94 Random Glucose 85 Calcium 10.1 Magnesium 2.3 Total Bilirubin 0.8 Direct Bilirubin 0.3 AST 31 ALT 33 Alkaline Phosphatase 80 Troponin I High Sens < 2.7 Total Protein 7.3 Albumin 4.4 Triglycerides 232 H Cholesterol 175 LDL Cholesterol, Calc 96 HDL Cholesterol 33 L Lipase 273 H Urine Color Yellow Urine Appearance Clear Urine pH 8.5 Ur Specific [place] 1.010 Urine Protein Negative Urine Glucose (UA) Negative Urine Ketones Negative Urine Blood Negative Urine Nitrite Negative Ur Leukocyte Esterase Trace H Urine RBC 0-2 Urine WBC 0-5 Ur Squamous Epith Cells 0-2 Urine Bacteria None Seen Hyaline Casts 0-2 Urine Opiates Screen POSITIVE H Ur Buprenorphine Scrn Not Detected Ur Oxycodone Screen Not Detected Urine Methadone Screen Not Detected Urine Fentanyl Screen Not Detected Ur Barbiturates Screen Not Detected Ur Phencyclidine Scrn Not Detected Ur Amphetamines Screen Not Detected U Benzodiazepines Scrn Not Detected Urine Cocaine Screen Not Detected U Marijuana (THC) Screen Not Detected Ethyl Alcohol < 10 Influenza Type A (PCR) NEGATIVE Influenza Type B (PCR) NEGATIVE RSV RNA Qual (PCR) NEGATIVE SARS-CoV-2 RNA (RT-PCR) NEGATIVE 05/18/24 06:06 MCV MCH MCHC RDW Plt Count MPV Immature Gran % (Auto) Neut % (Auto) Lymph % (Auto) [place] % (Auto) Eos % (Auto) Baso % (Auto) Lymph # (Auto) [place] # (Auto) Eos # (Auto) Baso # (Auto) Abs Immat Gran (auto) Absolute Neuts (auto) Absolute Nucleated RBC Nucleated RBC % (auto) Anion Gap 11 L Estim Creat Clear Calc 44.0 Estimated GFR 46 POC Glucose Random Glucose 78 Calcium 8.7 D Magnesium Total Bilirubin Direct Bilirubin AST ALT Alkaline Phosphatase Troponin I High Sens Total Protein Albumin Triglycerides Cholesterol LDL Cholesterol, Calc HDL Cholesterol Lipase Urine Color Urine Appearance Urine pH Ur Specific [place] Urine Protein Urine Glucose (UA) Urine Ketones Urine Blood Urine Nitrite Ur Leukocyte Esterase Urine RBC Urine WBC Ur Squamous Epith Cells Urine Bacteria Hyaline Casts Urine Opiates Screen Ur Buprenorphine Scrn Ur Oxycodone Screen Urine Methadone Screen Urine Fentanyl Screen Ur Barbiturates Screen Ur Phencyclidine Scrn Ur Amphetamines Screen U Benzodiazepines Scrn Urine Cocaine Screen U Marijuana (THC) Screen Ethyl Alcohol Influenza Type A (PCR) Influenza Type B (PCR) RSV RNA Qual (PCR) SARS-CoV-2 RNA (RT-PCR) Assessment and Plan (1) Acute pancreatitis: Status: Acute Assessment and Plan: 64-year-old male with a PMH significant for?alcohol use disorder, hx of alcohol withdrawal with seizures, HTN, HLD, ?paroxysmal AFib, chronic back pain BPH, CKD3, and VIRAJ on CPAP who presents to the ED with?intractable nausea, vomiting, diarrhea, and central, nonradiating abdominal pain x3 days. Pt will be admitted to the hospital for treatment and further evaluation of acute pancreatitis of unclear etiology. Acute pancreatitis-Unclear etiology: no CBD, LFTs WNL, reports last ank 14 months ago Intractable N/V/D and abd pain x3 days has diarrhae Unable to tolerate p.o. Elevated lipase triglycerides:232 continue IVF, IV analgesics, and IV antiemetics,give trial clear liquids added gi panel,cdiff testing for diarrhae. COPD-Not in acute exacerbation Continue home inhalers HTN Continue amlodipine and metoprolol HLD continue statin Alcohol use disorder In remission, sober x14 months Full Code DVT Prophylaxis: Lovenox ongoing intractable diarrahe and inability to tolerate p.o.,for treatment of?acute pancreatitis requiring IVF, IV analgesics, IV antiemetics, and GI consult. Quality Stroke Does the patient have a stroke diagnosis?: No VTE Prior VTE?: No VTE Risk Level:: Medical - moderate - high VTE Device Contraindication: Treatment Not Indicated VTE Drug Contraindication: N/A - Med Ordered
[2024-05-18 16:00] VITALS: BP 142/82; PULSE 50; RESP 18; TEMP 36.6; O2SAT 97
[2024-05-18] MEDS: Enoxaparin Sodium 40 MG/0.4 ML SYRINGE SUBCUT (16:23)
[2024-05-18] MEDS: Acetaminophen 325 MG TABLET 650 MG PO (18:02)
[2024-05-18] MEDS: ondansetron HCL 4 MG/2 ML VIAL IVPUSH (18:02)
[2024-05-18 19:30] VITALS: BP 144/84; PULSE 91; RESP 16; TEMP 36.2; O2SAT 95
[2024-05-18] MEDS: traZODone HCL 50 MG TABLET PO (20:47)
[2024-05-18] MEDS: QUEtiapine Fumarate 100 MG TABLET PO (20:47)
[2024-05-18] MEDS: LORazepam 1 MG TABLET PO (20:47)
[2024-05-19] VITALS: BP 112/74; PULSE 47; RESP 16; TEMP 36.1; O2SAT 94
[2024-05-19] MEDS: oxyCODONE HCl Immed Release 5 MG TABLET PO ×2 (00:12→08:42)
[2024-05-19] MEDS: Melatonin 3 MG TABLET 6 MG PO (00:12)
[2024-05-19 03:54] VITALS: BP 117/79; PULSE 47; RESP 16; TEMP 36.4; O2SAT 94
[2024-05-19] MEDS: Lactated Ringers 1,000 ML 100 ML IVCONT (05:46)
[2024-05-19 07:53] VITALS: BP 129/76; PULSE 49; RESP 17; TEMP 36.8; O2SAT 93
[2024-05-19 08:43] VITALS: BP 129/76
[2024-05-19] MEDS: Potassium Chloride ER 10 MEQ TABLET.ER PO (08:43)
[2024-05-19] MEDS: Furosemide 20 MG TABLET PO (08:43)
[2024-05-19] MEDS: FLUoxetine HCl 20 MG CAPSULE PO (08:43)
[2024-05-19] MEDS: Dicyclomine HCl 10 MG CAPSULE PO ×2 (08:43→11:36)
[2024-05-19] MEDS: Multivitamin TABLET 1 TAB PO (08:43)
[2024-05-19] MEDS: Atorvastatin Calcium 80 MG TABLET PO (08:43)
[2024-05-19] MEDS: FLUoxetine HCl 20 MG CAPSULE 40 MG PO (08:43)
[2024-05-19] MEDS: ARIPiprazole 5 MG TABLET PO (08:43)
[2024-05-19] MEDS: Lipase/Prot/Amylase 24/76/120K 1 CAP CAPSULE.DR 2 CAP PO ×2 (08:43→11:36)
[2024-05-19] MEDS: Aspirin Enteric Coated 81 MG TABLET.DR PO (08:44)
[2024-05-19] MEDS: Famotidine 20 MG TABLET PO (08:44)
[2024-05-19] MEDS: buPROPion HCl XL 150 MG TAB.ER.24H PO (08:44)
[2024-05-19] MEDS: Naltrexone HCl 50 MG TABLET 25 MG PO (08:44)
[2024-05-19] MEDS: Gabapentin 600 MG TABLET PO (08:44)
[2024-05-19] MEDS: Cholecalciferol (Vitamin D3) 25 MCG TABLET PO (08:44)
[2024-05-19] MEDS: Tolterodine Tartrate LA 4 MG CAP.ER.24H PO (08:45)
[2024-05-19] MEDS: Empagliflozin 25 MG TABLET PO (08:50)
[2024-05-19] MEDS: LORazepam 1 MG TABLET PO (08:58)
[2024-05-19 10:13] LABS: Anion Gap 8 (12-20); Blood Urea Nitrogen 12 mg/dL (9-16); Calcium 8.5 mg/dL (8.4-10.2); Carbon Dioxide 25 mmol/L (22-29); Chloride 110 mmol/L (96-108); Creatinine Clr Calc Pharmacy 44.8; Estimated Glomerular Filt Rate 47; Glucose Random 81 mg/dL (60-115); Potassium 3.7 mmol/L (3.3-5.1); Sodium 139 mmol/L (135-145)
--- NOTE | 2024-05-19 11:01 | P.DS_ITS ---
DS: Providers Provider Date of Service: 05/19/24 Date of admission: 05/17/24 15:31 Date of discharge: 05/19/24 Primary care physician: Saul Spicer MD Consults: 05/17/24 15:37 Consult to Gastroenterology Routine Consulting Provider: Claude Monae Reason for consultation: Acute pancreatitis Attending physician on discharge: India Blake Discharging clinician: India Blake DS: Diagnosis Discharge Diagnosis (1) Acute pancreatitis: Status: Acute DS: Summary Hospital Course Hospital Course: HPI:64-year-old male with a PMH significant for?alcohol use disorder, hx of alcohol withdrawal with seizures, HTN, HLD, ?paroxysmal AFib, chronic back pain BPH, CKD3, and VIRAJ on CPAP who presents to the ED with?intractable nausea, vomiting, diarrhea, and central, nonradiating abdominal pain x3 days. Patient initially presented to the emergency room 2 days ago on 05/15 where workup was largely negative, including lipase that was WNL and CT of abdomen and pelvis that was negative for acute inflammatory changes. Patient reports initially felt better and went home, the once home symptoms returned. Patient states he has only tolerated a small amount of [place] and a couple of crackers, otherwise has not been able to eat or drink anything. Subjective fever and chills. Reports similar symptoms 1 year ago and then again in December. Reports has been diagnosed with ?stomach migraines?. Reports last drank alcohol 14 months ago. No chest pain/pressure, palpitations. Denies shortness or breath or difficulty breathing. In the ED pt's vitals WNL and stable. Labs were significant for lipase 273 (increased from 78 on 05/15/2024), otherwise grossly unremarkable and baseline for patient. No leukocytosis. Stable H&H. No significant electrolyte abnormalities. Creatinine 1.91, at baseline. Hepatic function WNL. Troponin negative. EKG demonstrated normal sinus rhythm without evidence of acute ischemic changes. Pt was treated with lorazepam, metoclopramide, and IVF. Pt will be admitted to the hospital for treatment and further evaluation of acute pancreatitis of unclear etiology. Hospital course: Patient was admitted for nausea vomiting abdominal pain and diarrhea-no leukocytosis , electrolytes fine, mild lipase elevation, ct abd 05/15 : negative ( since recent ct and negative and patient improved quickly-so did not repeat this admission additional studies) : Initially patient was admitted for question of possible mild pancreatitis but seems like symptoms likely related to viral gastroenteritis which responded quickly with hydration and supportive care. Patient improved, tolerating diet, no more diarrhea or abdominal pain. 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 Patient will be going home. plan: Encouraged for p.o. hydration, try bland diet for few days. Follow-up with PCP outpatient. If any new symptoms of abdominal pain or fever or nausea or vomiting -please go to nearest emergency room. Above management discussed with the patient detail length he understand in agreement with the above plan, time spent 40 minute. Time Attestation Total time managing care of this patient today: 40 mintues. Discharge Coordination Time (in mins): 40 min Quality: Safe Use of Opioids Does Pt have an Active Cancer Diagnosis on the Problem List?: No Quality: Stroke Does the patient have a stroke diagnosis?: No Physical Exam Vital Signs: Vital Signs: Last Vital Signs Temp 98.2 F 05/19/24 07:53 Pulse 49 L 05/19/24 07:53 Resp 17 05/19/24 07:53 BP 129/76 05/19/24 08:43 Pulse Ox 93 05/19/24 07:53 O2 Del Method Room Air 05/19/24 07:53 Oxygen Flow Rate 2 05/17/24 11:48 BMI result Body Mass Index 26.3 Appearance: Alert.? Oriented X3.? cvs: rrr, [id number] , no murmur res: clear to auscultation ,no rhonchii or wheezing abd: no rebound or guarding ,nt, bs present. ext pulses present , no cyanosis . neuro: axo3 , nonfocal. DS: Data Data Completed and Pending Labs on day of discharge: Laboratory Results - last 24 hr 05/19/24 09:32 Sodium 139 Potassium 3.7 Chloride 110 H Carbon Dioxide 25 Anion Gap 8 L BUN 12 Creatinine 1.52 H Estim Creat Clear Calc 44.8 Estimated GFR 47 Random Glucose 81 Calcium 8.5 Discharge Plan Discharge Anticipated Discharge Date/Time: 05/19/24 10:56 Patient Disposition: Home Health Service Discharge Diagnosis: Possible viral gastroenteritis versus mild pancreatitis Referrals: Harshad Ho [Outside] - 1 Week Saul Barbour MD [Primary Care Provider] - 1 Week Discharge Medications: Continued metoprolol tartrate 25 mg tablet 25 mg PO BID Qty: 180 5RF Trelegy Ellipta 200-62.5-25 mcg blister with device 1 ea PO DAILY Qty: 60 3RF azelastine 137 mcg (0.1 %) spray,non-aerosol 1 spray intranasal BID Qty: 90 0RF fluoxetine 40 mg capsule 40 mg PO DAILY Rx Instructions: with 20 mg; tdd 60 mg loperamide 2 mg capsule 2 mg PO QID PRN (Reason: Diarrhea) trazodone 50 mg tablet 50 mg PO BEDTIME hydroxyzine HCl 25 mg tablet 25 mg PO DAILY PRN (Reason: Anxiety) ondansetron 4 mg tablet,disintegrating 4 mg PO Q8H PRN (Reason: Nausea And Vomiting) fluoxetine 20 mg capsule 20 mg PO DAILY Rx Instructions: with 40 mg; tdd 60 mg dicyclomine 10 mg capsule 10 mg PO TIDAC aripiprazole 5 mg tablet 5 mg PO DAILY furosemide 20 mg tablet 20 mg PO DAILY albuterol sulfate [Ventolin HFA] 90 mcg/actuation HFA aerosol inhaler 2 puff PO Q6H PRN (Reason: for wheezing) potassium chloride 10 mEq capsule, extended release 10 meq PO DAILY Qty: 3 0RF famotidine 20 mg tablet 20 mg PO DAILY Jardiance 25 mg tablet 25 mg PO DAILY acetaminophen 650 mg tablet extended release 650 mg PO Q8H [place] 24,000-76,000 -120,000 unit capsule,delayed release(DR/EC) 2 cap PO TIDWM [place]on 24,000-76,000 -120,000 unit capsule,delayed release(DR/EC) 1 cap PO DAILY PRN (Reason: SNACK) cholecalciferol (vitamin D3) 25 mcg (1,000 unit) tablet 25 mcg PO DAILY aspirin 81 mg tablet,delayed release (DR/EC) 81 mg PO DAILY atorvastatin 80 mg tablet 80 mg PO DAILY bupropion HCl 150 mg tablet extended release 24 hr 150 mg PO DAILY lorazepam 1 mg tablet 1 mg PO TID PRN (Reason: Anxiety) naltrexone 50 mg tablet 25 mg PO DAILY quetiapine 100 mg tablet 100 mg PO BEDTIME multivitamin with folic acid [Daily-Sadi (with folic acid)] 400 mcg tablet 1 tab PO DAILY (DME) FreeStyle Lite Strips Strip See Rx Instructions .ROUTE TID Qty: 10 Rx Instructions: As directed (DME) blood-glucose meter [FreeStyle [place] Lite] Kit See Rx Instructions .ROUTE .MEDSUPPLY Qty: 1 Rx Instructions: As directed (DME) lancets [FreeStyle Lancets] 28 gauge misc See Rx Instructions .ROUTE TID Qty: 100 Rx Instructions: As directed gabapentin 600 mg tablet 600 mg PO BID tolterodine 4 mg capsule,extended release 24hr 4 mg PO DAILY 90 Days Qty: 90 1RF testosterone 20.25 mg/1.25 gram (1.62 %) gel in metered-dose pump 2 pump topical DAILY 30 Days Qty: 75 5RF Rx Instructions: apply 2 pumps over max area - alternate shoulders on alternate days Discharge Orders: Discharge Order (Routine); Ordered 05/19/24 Ordered By: India Blake Diet: Advance to usual diet Activity on Discharge: As tolerated Stand Alone Forms: Patient Portal Discharge page Print Language: [place] Care Plan Goals: Patient was admitted for nausea vomiting abdominal pain and diarrhea-no leukocytosis , electrolytes fine, mild lipase elevation: Initially patient was admitted for question of possible mild pancreatitis but seems like symptoms likely related to viral gastroenteritis which responded quickly with hydration and supportive care. Patient improved, tolerating diet, no more diarrhea or abdominal pain. Patient will be going home. Health Concerns: As above. Plan of Treatment: as above. Assessment: as above. Discharge Date/Time: 05/19/24 13:29
--- NOTE | 2024-05-19 12:49 | MHC.CM.PN ---
PT WILL DC HOME TODAY WITH RESUMPTION OF [facility] AT 1345 HOURS
== END 2024-05-19 13:29 | disposition home health service (06) | DRG 391 ==
LOC: HO.ED 14:01 → HO.EDOVER 15:58 → HO.S3 19:13
PROVIDERS: Physician Assistant Medical; Admitting Provider Student in an Organized Health Care Education/Training Program; Emergency Provider Emergency Medicine; PCP Internal Medicine; Visit Provider Internal Medicine
DX: A08.4 Viral intestinal infection, unspecified (principal); K85.90 Acute pancreatitis without necrosis or infection, unspecified; G47.33 Obstructive sleep apnea (adult) (pediatric); I12.9 Hypertensive chronic kidney disease with stage 1 through stage 4 chronic kidney disease, or unspecified chronic kidney disease; Z20.822 Contact with and (suspected) exposure to COVID-19; N40.0 Benign prostatic hyperplasia without lower urinary tract symptoms; N18.30 Chronic kidney disease, stage 3 unspecified; F10.91 Alcohol use, unspecified, in remission; E11.22 Type 2 diabetes mellitus with diabetic chronic kidney disease; F17.210 Nicotine dependence, cigarettes, uncomplicated; Z71.6 Tobacco abuse counseling; Z79.82 Long term (current) use of aspirin; Z79.899 Other long term (current) drug therapy
CPT/HCPCS: 0241U; 36415; 74176; 80048; 80053; 80061; 80076; 80307; 81001; 81003; 82947; 83690; 83735; 84484; 85025; 93005; 99221; 99285; J1650; J2060; J2270; J2405; J2765; J7120

== ENCOUNTER → 2024-05-17 11:40 | Outpatient (BNV) | payer OTHER, SELFPAY | PROVIDERS: Emergency Provider Emergency Medicine; PCP Internal Medicine; Visit Provider Internal Medicine Cardiovascular Disease | DX: R94.31 Abnormal electrocardiogram [ECG] [EKG] (principal) | CPT/HCPCS: 93010 ==

== ENCOUNTER → 2024-05-17 15:31 | Outpatient (BNV) | payer OTHER, SELFPAY | PROVIDERS: Admitting Provider Student in an Organized Health Care Education/Training Program; Emergency Provider Emergency Medicine; PCP Internal Medicine; Visit Provider Student in an Organized Health Care Education/Training Program | DX: K85.90 Acute pancreatitis without necrosis or infection, unspecified (principal) | CPT/HCPCS: 99223; 99231; 99239 ==

== ENCOUNTER 2024-05-26 09:32 | Outpatient (AMB) | payer OTHER, SELFPAY ==
--- NOTE | 2024-05-26 07:46 | MHC.OFFVIS ---
Intake Visit Reasons: Current Smoker Allergies No Known Allergies [No Known Allergies*] Allergy (Verified 05/17/24 11:51) HPI HPI Current Smoker: Details: Initial visit for this 64yo smoker with a 22PYH. Patient started smoking at age 19 for 45 years at 1/2ppd. . Denies marijuana use. Notes social second hand smoke exposure. 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 . Reports family history of lung cancer. Father age 58. Denies personal history of cancers. Denies chest CT in last year. . Denies recent travel outside the [place]. Denies recent respiratory illness or recent hospitalization for respiratory issues. Reports history testing positive for COVID. Admits receiving COVID Vaccine. . Denies fever, chills, new/worsening cough, hemoptysis, hoarseness or dysphagia. Denies significant chest pain, significant dyspnea or unintentional weight loss. Patient Lung Cancer Screening Questionnaire reviewed with patient by provider. . Shared Decision Making Completed. Patient meets criteria. Discussed in detail with patient, the risk vs benefit of LDCT screening. Patient consents to proceed with scan. Discussed smoking cessation. [facility] Medical History (Updated 05/26/24 @ 09:49 by Abby Sanchez PA-C) History of alcohol use Essential hypertension Type 2 diabetes mellitus with unspecified complications Respiratory failure with hypercapnia COPD (chronic obstructive pulmonary disease) VIRAJ on CPAP Nicotine dependence, cigarettes, uncomplicated Allergic rhinitis BPH loc w urin obs/LUTS Elevated PSA Surgical History (Updated 05/26/24 @ 09:48 by Abby Sanchez PA-C) History of throat surgery History of back surgery History of back surgery Family History (Updated 05/26/24 @ 09:39 by Abby Sanchez PA-C) Father HTN (hypertension) Lung cancer Social History (Updated 05/26/24 @ 09:50 by Abby Sanchez PA-C) Household Members: None Household Members Other:: 2 Rabbits Housing: Apartment Alcohol intake: former Patient Tobacco Use Status: Current everyday Tobacco user Tobacco use type: Cigarette Years Smoked: (onset 19yo, 1/2ppd x 45yrs, 22pyh) Second Hand Smoke Exposure: No Advance Directives Date on File: 01/15/24 service: No Assessment & Plan Assessment & Plan (1) Nicotine dependence, cigarettes, uncomplicated: Comment: (onset 19yo, 1/2ppd x 45yrs, 22pyh, + fam hx lung ca) Code(s): F17.210 - Nicotine dependence, cigarettes, uncomplicated Category: Medical Plan: - SDM visit completed today in office. - Patient meets criteria for LDCT for lung cancer screening purposes and is asymptomatic. - Smoking cessation counseling offered. Patients can always call [phone]. - Will arrange for a LDCT scan of the chest for screening purposes at [facility]. - Risks, benefits, and alternatives were discussed in detail and the patient agrees to proceed. - Risks discussed include but are not limited to: radiation exposure, anxiety during testing and while awaiting results, false negatives, false positives and possibility of additional intervention such as further imaging or surgical procedures for benign disease. - Benefits are obviously detection of lung cancer at an early stage which can lead to improved outcomes. - Discussed the importance of screening program compliance with adherence to yearly LDCT scan as scheduled - or sooner interval scans for personalized screening regimen. - Discussed follow up plan. Our office will send a letter discussing results and if needed set up phone call and office visit based on CT findings. - Patient educated on results categorization and the management decisions for suspicious findings potentially found on the screening LDCT scan. Any patient with a Lung RADS score of 3 or 4 will be reviewed by a multidisciplinary team at [facility] to form a plan of action in regards to scan findings. - If further work up is warranted for a suspicious lung finding this will be followed by the Lung Cancer Screening program in conjunction with the Thoracic Surgery Department at [facility]. - A copy of the office note and LDCT will be sent to the patient's PCP - as well as documentation on any associated further plans of care. - Incidental findings on LDCT are the PCP's responsibility. These findings are indicated with an S finding on the LDCT Assessment. A note discussing the findings will be sent to the PCP who is then responsible for further management. - All questions answered.? Coding Level of Care Code Lung Cancer Screening G0296 Diagnoses Nicotine dependence, cigarettes, uncomplicated F17.210
== END 2024-05-26 10:22 | disposition home or self-care (01) ==
PROVIDERS: PCP Internal Medicine; Visit Provider Physician Assistant Medical
DX: F17.210 Nicotine dependence, cigarettes, uncomplicated (principal)
CPT/HCPCS: G0296

== ENCOUNTER 2024-05-26 09:49 | Outpatient (REF) | payer OTHER, SELFPAY ==
--- OUTSIDE RECORDS SUMMARY | 2024-05-26 09:51 | XMS_ITS | Clinical Summary ---
Author Organization Unknown Care Team Providers Care National Sales Associate Name Role Phone HIRAM PARR MD, BRENT Unavailable U cara OGDEN RN, LUIS Unavailable Unavailable Payers Payer Name Policy Type Policy Number Effective Date Expira tion Date [facility] [id number] MEDICAID [facility] [id number] MEDICARE - [facility] [id number] Problems Condition Name Condition Details Condition Category [...] %) transdermal gel 09-01 00:00: 00 Yes [id number] Per instruc tions 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 Per instructio ns 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 (route: transderma l) Med Classific ation: Endocrine Trelegy Ellipta 200 mcg-62.5 mcg-25 mcg powder for inhalation 02-11 00:00: 00 09-01 00:00 :00 No [id number] Per instruc tions EVERY DAY Per instructio ns EVERY DAY (route: inhalation ) Med Classific ation: Respirato ry Therapy Agents azelastine 137 mcg (0.1 %) nasal spray aerosol 09-01 00:00: 00 Yes [id number] Per instruc tions 1 SPRAY INTRANASAL LY TWICE A DAY Per instructio ns 1 SPRAY INTRANASAL LY TWICE A DAY (route: nasal) Med Classific ation: Respirato ry Therapy Agents aspirin 81 mg tablet,olya yed release 09-01 00:00: 00 Yes [id number] 1 tablet DAILY 1 tablet DAILY (route: oral) Med Classific ation: Hematolog ical Agents Alcohol Prep Pads 09-01 00:00: 00 Yes [id number] Per instruc tions 3 TIMES DAILY Per instructio ns 3 TIMES DAILY (route: topical) Med Classific ation: Antisepti cs and Disinfect ants furosemide 40 mg tablet 02-28 00:00: 00 09-01 23:59 :00 No [id number] 1 tablet 2 TIMES DAILY 1 tablet 2 TIMES DAILY (route: oral) Med Classific ation: Cardiovas cular Therapy Agents lorazepam 1 mg tablet 09-01 00:00: 00 Yes [id number] Per instruc tions THREE TIMES A DAY NEEDED Per instructio ns THREE TIMES A DAY NEEDED (route: oral) Med Classific ation: Central Nervous System Agents acetaminoph en ER 650 mg tablet,exte nded release 09-01 00:00: 00 Yes [id number] 1 tablet EVERY 8 HOURS 1 tablet EVERY 8 HOURS (route: oral) Med Classific ation: Analgesic , Anti-infl ammatory or Antipyret ic quetiapine 50 mg tablet 09-01 00:00: 00 11-17 23:59 :00 No [id number] Per instruc tions EVERY DAY NEEDED Per instructio ns EVERY DAY NEEDED (route: oral) Med Classific ation: Central Nervous System Agents metoprolol tartrate 25 mg tablet 09-01 00:00: 00 Yes [id number] 1 tablet TWICE A DAY 1 tablet TWICE A DAY (route: oral) Med Classific ation: Cardiovas cular Therapy Agents amlodipine 10 mg tablet 09-01 00:00: 00 09-01 23:59 :00 No [id number] 1 tablet DAILY 1 tablet DAILY (route: oral) Med Classific ation: Cardiovas cular Therapy Agents atorvastati n 80 mg tablet 09-01 00:00: 00 Yes [id number] 1 tablet BEDTIME 1 tablet BEDTIME (route: oral) Med Classific ation: Cardiovas cular Therapy Agents bupropion HCl XL 300 mg 24 hr tablet, extended release 09-01 00:00: 00 03-30 23:59 :00 No [id number] 1 tablet DAILY 1 tablet DAILY (route: oral) Med Classific ation: Central Nervous System Agents fluoxetine 40 mg capsule 09-01 00:00: 00 Yes [id number] 2 capsule DAILY 2 capsule DAILY (route: oral) Med Classific ation: Central Nervous System Agents gabapentin 600 mg tablet 09-01 00:00: 00 Yes [id number] 1 tablet 2 TIMES DAILY 1 tablet 2 TIMES DAILY (route: oral) Med Classific ation: Central Nervous System Agents ipratropium 0.5 mg-albutero l 3 mg (2.5 mg base)/3 mL nebulizatio n soln 09-01 00:00: 00 Yes [id number] Per instruc tions NEEDED Per instructio ns NEEDED (route: inhalation ) Med Classific ation: Respirato ry Therapy Agents Jardiance 25 mg tablet 02-28 00:00: 00 06-23 23:59 :00 No [id number] 2 tablet DAILY 2 tablet DAILY (route: oral) Med Classific ation: Endocrine melatonin 10 mg capsule 09-01 00:00: 00 Yes [id number] 1 capsule BEDTIME 1 capsule BEDTIME (route: oral) Med Classific ation: Central Nervous System Agents metoprolol tartrate 25 mg tablet 02-28 00:00: 00 09-01 00:00 :00 No [id number] 1 tablet 2 TIMES DAILY 1 tablet 2 TIMES DAILY (route: oral) Med Classific ation: Cardiovas cular Therapy Agents prednisone 5 mg tablet 02-28 00:00: 00 09-01 00:00 :00 No [id number] 1 tablet DAILY 1 tablet DAILY (route: oral) Med Classific ation: Endocrine quetiapine 100 mg tablet 09-01 00:00: 00 Yes [id number] 1 tablet BEDTIME 1 tablet BEDTIME (route: oral) Med Classific ation: Central Nervous System Agents quetiapine 50 mg tablet 09-01 00:00: 00 11-17 23:59 :00 No [id number] 1 tablet DAILY 1 tablet DAILY (route: oral) Med Classific ation: Central Nervous System Agents sulindac 150 mg tablet 02-28 00:00: 00 09-01 00:00 :00 No [id number] 1 tablet 2 TIMES DAILY 1 tablet 2 TIMES DAILY (route: oral) Med Classific ation: Analgesic , Anti-infl ammatory or Antipyret ic tadalafil 10 mg tablet 09-01 00:00: 00 Yes [id number] 1 tablet DAILY 1 tablet DAILY (route: oral) Med Classific ation: Drugs to treat Erectile Dysfuncti on terazosin 5 mg capsule 09-01 00:00: 00 Yes [id number] 1 capsule BEDTIME 1 capsule BEDTIME (route: oral) Med Classific ation: Cardiovas cular Therapy Agents trazodone 50 mg tablet 09-01 00:00: 00 Yes [id number] 1 tablet BEDTIME 1 tablet BEDTIME (route: oral) Med Classific ation: Central Nervous System Agents Trelegy Ellipta 200 mcg-62.5 mcg-25 mcg powder for inhalation 09-01 00:00: 00 Yes [id number] 2 inhalat ion DAILY 2 inhalation DAILY (route: inhalation ) Med Classific ation: Respirato ry Therapy Agents Vitamin D3 25 mcg (1,000 unit) capsule 09-01 00:00: 00 Yes [id number] 1 capsule DAILY 1 capsule DAILY (route: oral) Med Classific ation: Electroly te Balance-N utritiona l Products Wellbutrin XL 150 mg 24 hr tablet, extended release 09-01 00:00: 00 Yes [id number] 1 tablet DAILY 1 tablet DAILY (route: oral) Med Classific ation: Central Nervous System Agents sulindac 150 mg tablet 2022-06 00:00: 00 09-01 00:00 :00 No [id number] 150 mg 2 TIMES DAILY 150 mg 2 TIMES DAILY (route: oral) Med Classific ation: Analgesic , Anti-infl ammatory or Antipyret ic metformin 850 mg tablet 06-28 00:00: 00 09-01 23:59 :00 No [id number] 1 tablet 2 TIMES DAILY 1 tablet 2 TIMES DAILY (route: oral) Med Classific ation: Endocrine amlodipine 5 mg tablet 09-01 00:00: 00 Yes [id number] 1 tablet DAILY 1 tablet DAILY (route: oral) Med Classific ation: Cardiovas cular Therapy Agents Fiber (with aspartame) 3.4 gram/5.8 gram oral powder 09-01 00:00: 00 Yes [id number] 5 g DAILY 5 g DAILY (route: oral) Med Classific ation: Gastroint estinal Therapy Agents furosemide 20 mg tablet 09-01 00:00: 00 Yes [id number] 1 tablet DAILY 1 tablet DAILY (route: oral) Med Classific ation: Cardiovas cular Therapy Agents Abilify 5 mg tablet 6-13 00:00: 00 Yes [id number] 1 tablet DAILY 1 tablet DAILY (route: oral) Med Classific ation: Central Nervous System Agents potassium chloride ER 10 mEq tablet,exte nded release 01-19 00:00: 00 01-20 23:59 :00 No [id number] 1 tablet DAILY 1 tablet DAILY (route: oral) Med Classific ation: Electroly te Balance-N utritiona l Products tizanidine 2 mg tablet 01-19 00:00: 00 Yes [id number] 1 tablet EVERY 8 HOURS 1 tablet EVERY 8 HOURS (route: oral) Med Classific ation: Locomotor System Creon 41,369-37,0 00-120,000 unit capsule,del ayed release 2023-06 0-24 00:00: 00 Yes [id number] 1 capsule 3 TIMES DAILY 1 capsule 3 TIMES DAILY (route: oral) Med Classific ation: Gastroint estinal Therapy Agents dicyclomine 10 mg capsule 2023-06 0-24 00:00: 00 Yes [id number] 1 capsule 4 TIMES DAILY 1 capsule 4 TIMES DAILY (route: oral) Med Classific ation: Gastroint estinal Therapy Agents tolterodine ER 4 mg capsule,ext ended release 24 hr 2023-06 024 00:00: 00 Yes [id number] 1 capsule DAILY 1 capsule DAILY (route: oral) Med Classific ation: Genitouri nary Therapy Vital Signs Vital Name Observation Time Observation Value Commen ts Temperature 2024-05-20 12:19:00.000 99 [degF] BMI (%) 2024-05-20 12:19:00.000 23 kg/m2 Height 2024-05-20 12:19:00.000 69 [in_us] Pulse 2024-05-11 10:23:00.000 59 /min O2 Saturation (%) 2024-05-20 12:21:00.000 99 % Respirations 2024-05-20 12:19:00.000 18 /min Respirations 2024-05-11 10:23:00.000 18 /min Weight (lbs) 2024-05-20 12:19:00.000 160 [lb_av] Systolic Blood Pressure 2024-05-20 12:19:00.000 142 mm [Hg] Systolic Blood Pressure 2024-05-11 10:23:00.000 107 mm [Hg] Diastolic Blood Pressure 2024-05-20 12:19:00.000 100 m m[Hg] Diastolic Blood Pressure 2024-05-11 10:23:00.000 70 mm [...] AWARENESS FOR SAFETY AND WILL NOTIFY CLINICAL SUPERVISOR POLE YARD AND PHYSICIAN/PROVIDER WITH ANY CHANGE IN CONDITION. [code = SKILLED NURSE WILL MAINTAIN SITUATIONAL AWARENESS FOR SAFETY AND WILL NOTIFY CLINICAL SUPERVISOR POLE YARD AND PHYSICIAN/PROVIDER WITH ANY CHANGE IN CONDITION.] [...] SYMPTOMS OF SUBSTANCE USE INCLUDING PARTICIPATION IN [facility] SPECIALTY PROGRAM. INSTRUCT PATIENT ON RELATED RISKS AND WILL NOTIFY TREATMENT TEAM NEEDED. [code = SKILLED NURSE FOR O/A OF SIGNS AND SYMPTOMS OF SUBSTANCE USE INCLUDING PARTICIPATION IN [facility] SPECIALTY PROGRAM. INSTRUCT PATIENT ON RELATED RISKS AND WILL NOTIFY TREATMENT TEAM NEEDED.] Goal 2023-10-28 Patient Goal - NO HOSPITALIZ ATION Goal 2023-12-28 Patient Goal - NO HOSPITALIZ ATION Goal 2024-02-24 Patient Goal - NO HOSPITALIZ ATION Goal 2024-04-27 Patient Goal - STAY OUT OF [facility] Goal Patient Goal - STAY OUT [facility] Goal Provider Goal - A PLAN OF CARE WILL BE ESTABLISHED THAT MEETS PATIENT'S LONG-TERM NEEDS AND INCLUDES PATIENT GOAL FOR HOME [...] RISKS OF SUBSTANCE USE THROUGHOUT CERTIFICATION PERIOD. Progress Notes Progress Notes <paragraph>[Visit Date: 2023 by ADILIA OPWERS RN]:</paragraph><paragraph>64 YEAR OLD SINGLE MALE LIVING ALONE IN A APARTMENT IN [place]. DX INCLUDE CHRONIC PANCREATITIS, ALCOHOLISM IN REMISSION, DIABETES, COPD, HYPERTENSION AND CHF. SHADE WAS RELEASED FROM THE HOSPITAL AFTER BEING TREATED FOR VIRAL GASTROENTERITIS. HE REPORTS FEELING A LOT BETTER JUST TIRED. VSS. HE REPORTS ABD PAIN A LEVEL 3 WHICH HE REPORTS IS A HUGE IMPROVEMENT. EATING BLAND DIET NEXT COUPLE DAYS. NO MEDICATION CHANGES WERE MADE EXCEPT NEEDED ZOFRAN. REQUESTING WEEKLY NURSE VISITS ON THURSDAYS.</paragraph> Encounters Start Date/Time End Date/Time Encounter Type Admission Type Attending [facility] Care Department Encounter ID Discharge Date Discharge Status Discharge Condition Discharge Reason Percent Goals Met 2023-09-02 00:00:00 2024-06-27 00:00:00 Outpatient RECERTIFIC [facility] [id number] 25.00
--- OUTSIDE RECORDS SUMMARY | 2024-05-26 09:51 | XMS_ITS | Data Portability ---
Author Organization [employer] Address [address] [place] [id number] Care Team Providers Care Rn Midwife Name Role Phone [facility] OTHER [facility] OTHER Assessment Encounter Date Assessment Date Assessment LastModified by Organization Details LastModified Time 08/19/2022 08/19/2022 I have reviewed and agree with the assessment and plan as documented by the cdl flatbed truck driver. I provided real time medical direction for this encounter and was immediately available to provide additional phone based assistance as needed. History as noted by cdl flatbed truck driver. Pt with history of alcoholic gastritis, AUD [...] assessment and plan as documented by the cdl flatbed truck driver. I provided real-time medical direction for this encounter and was immediately available to provide additional phone-based assistance as needed. History as noted in EMR and by cdl flatbed truck driver. I would add / emphasize: Patient with [...] BMP, serum or plasma 024 12/14/19 24 [facility], [address] [place] [address], [phone], 4 08:56:22 Referral None recorded . Procedures [...] Not Available Not Available Not Available [employer]Style [place] Lite kit TAKE 1 DROP BY SUBCUTANEOU [...] % 175.26 cm 16 /min 97.9 [degF] 41366.6 16 g 107 mm[Hg] 64 mm[Hg] Not Available [employer] 4 15:12:09 Date Recorded Heart rate Oxygen [...] mm[Hg] 115 mm[Hg] 70 mm[Hg] Not Available [employer] 3 12:16:25 Social History None recorded. Functional Status None recorded. Mental Status None recorded. Family History Nothing Reported. Medical History No medical history recorded. Past Encounters Encounter ID Performer Location Encounter Start Date Encounter Closed Date Diagnosis/Indication Diagnosis SNOMED-CT Code Diagnosis ICD10 Code [id number] Damian Urrutia MD Main - [address] [phone] 08/19/2022 12:02:34 08/21/2022 10:58:22 Right upper quadrant pain 399584242 R10.11 [id number] Augustus Osorio MD Main - [address] [id number] 12/14/2023 15:11:59 12/14/2023 17:08:41 Edema of lower extremity 280064239 R60.0 Health Concerns Section Related Observation LastModified by Organization Detai ls LastModified Time None Recorded Concern Status LastModified by Organization Details LastModified Time None Recorded Advance Directives Directive None Recorded Payers Encounter Date Sequence Insurance Name Policy Number Policy De La Vega Covered Member ID De La Vega Member ID Guarantor Name 08/19/2022 1 [facility] - DOS PRIOR TO 2022 - DUAL ELIGIBLE (MEDICARE REPLACEMENT/ADV ANTAGE - HMO) Po Bower [id number] Po Engle Rollsaurabh 12/14/2023 1 [facility] - DOS ON OR AFTER 2022 - DUAL ELIGIBLE - RESIDENTIAL OPTIONS AND ONE CARE (MEDICARE REPLACEMENT/ADV ANTAGE - HMO) Po Bower [id number] Po Bower Notes Date Note Type Note Provider Name and Address Organization Details Recorded Time 08/19/2022 text/html This was a supervised home visit with cdl flatbed truck driver Keysha Valentin. HPI: 62 y.o. M c/o [...] any hx of liver issues. Mbr has [facility] and Kimmy visiting nurse was there [...] ................... ................... ................... ................... ................... ................... ........ Buffing Machine Operator Note From Keysha Valentin: Sent to evaluate [...] to make them aware of pain. Consulted [facility] who advised that pt needs to contact PCP to make them aware and to potentially arrange for imaging. [facility] explained red flags to trigger ER visit. Pt made aware and advised that he will contact PCP today. No further questions or concerns at this time. ................... ................... ................... ................... ................... ................... ................... ........ Disposition: Juliana Urrutia MD [address] [facility], [place], [phone], [employer] 08/19/2022 15:08:54 12/14/2023 text/html HPI: Call returned to Po Bower to triage below. Reports having bilateral [...] and assess vitals as no appointments at [facility] today or tomorrow. Reviewed home care advise, ER precautions and reasons to call back. ................... ................... ................... ................... ................... ................... ................... ........ CRC Nurse Triage Notes (Shadia Loya): Comments: CRC RN DID NOT NEED FURTHER INFO Buffing Machine Operator POC Test Results from [facility] (15:22:34) pH: 7.41 pH units pCO2: 43.1 mmHg pO2: 49.5 mmHg Na: 142 mmol/L K: 4.0 mmol/L iCa: 1.20 mmol/L Cl: 103 mmol/L TCO2: 27.1 mEq/L Hct: 38 % Hb: 13.0 g/dL Glu: 100 mg/dL Lac: 1.7 mmol/L Cr: 2.0 mg/dL BUN: 9 mg/dL A ................... ................... ................... ................... ................... ................... ................... ........ Buffing Machine Operator Note From [facility]: Pt reports increased [...] ........ Disposition: Fulfilled Augustus Osorio MD [address] [facility], [place], [phone], [place] [employer] - [employer] 12/14/2023 19:38:56
--- OUTSIDE RECORDS SUMMARY | 2024-05-26 09:51 | XMS_ITS | Clinical Summary ---
Author Organization Unknown Care Team Providers Care Com Writer Name Role Phone HIRAM PARR MD, BRENT Unavailable U cara OGDEN RN, LUIS Unavailable Unavailable Payers Payer Name Policy Type Policy Number Effective Date Expira tion Date [facility] [id number] MEDICAID [facility] [id number] MEDICARE - [facility] - [place] [id number] Problems Condition Name Condition Details Condition Category [...] %) transdermal gel 09-01 00:00: 00 Yes [id number] Per instruc tions 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 Per instructio ns 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 (route: transderma l) Med Classific ation: Endocrine Trelegy Ellipta 200 mcg-62.5 mcg-25 mcg powder for inhalation 02-11 00:00: 00 09-01 00:00 :00 No [id number] Per instruc tions EVERY DAY Per instructio ns EVERY DAY (route: inhalation ) Med Classific ation: Respirato ry Therapy Agents azelastine 137 mcg (0.1 %) nasal spray aerosol 09-01 00:00: 00 Yes [id number] Per instruc tions 1 SPRAY INTRANASAL LY TWICE A DAY Per instructio ns 1 SPRAY INTRANASAL LY TWICE A DAY (route: nasal) Med Classific ation: Respirato ry Therapy Agents aspirin 81 mg tablet,olya yed release 09-01 00:00: 00 Yes [id number] 1 tablet DAILY 1 tablet DAILY (route: oral) Med Classific ation: Hematolog ical Agents Alcohol Prep Pads 09-01 00:00: 00 Yes [id number] Per instruc tions 3 TIMES DAILY Per instructio ns 3 TIMES DAILY (route: topical) Med Classific ation: Antisepti cs and Disinfect ants furosemide 40 mg tablet 02-28 00:00: 00 09-01 23:59 :00 No [id number] 1 tablet 2 TIMES DAILY 1 tablet 2 TIMES DAILY (route: oral) Med Classific ation: Cardiovas cular Therapy Agents lorazepam 1 mg tablet 09-01 00:00: 00 Yes [id number] Per instruc tions THREE TIMES A DAY NEEDED Per instructio ns THREE TIMES A DAY NEEDED (route: oral) Med Classific ation: Central Nervous System Agents acetaminoph en ER 650 mg tablet,exte nded release 09-01 00:00: 00 Yes [id number] 1 tablet EVERY 8 HOURS 1 tablet EVERY 8 HOURS (route: oral) Med Classific ation: Analgesic , Anti-infl ammatory or Antipyret ic quetiapine 50 mg tablet 09-01 00:00: 00 11-17 23:59 :00 No [id number] Per instruc tions EVERY DAY NEEDED Per instructio ns EVERY DAY NEEDED (route: oral) Med Classific ation: Central Nervous System Agents metoprolol tartrate 25 mg tablet 09-01 00:00: 00 Yes [id number] 1 tablet TWICE A DAY 1 tablet TWICE A DAY (route: oral) Med Classific ation: Cardiovas cular Therapy Agents amlodipine 10 mg tablet 09-01 00:00: 00 09-01 23:59 :00 No [id number] 1 tablet DAILY 1 tablet DAILY (route: oral) Med Classific ation: Cardiovas cular Therapy Agents atorvastati n 80 mg tablet 09-01 00:00: 00 Yes [id number] 1 tablet BEDTIME 1 tablet BEDTIME (route: oral) Med Classific ation: Cardiovas cular Therapy Agents bupropion HCl XL 300 mg 24 hr tablet, extended release 09-01 00:00: 00 03-30 23:59 :00 No [id number] 1 tablet DAILY 1 tablet DAILY (route: oral) Med Classific ation: Central Nervous System Agents fluoxetine 40 mg capsule 09-01 00:00: 00 Yes [id number] 2 capsule DAILY 2 capsule DAILY (route: oral) Med Classific ation: Central Nervous System Agents gabapentin 600 mg tablet 09-01 00:00: 00 Yes [id number] 1 tablet 2 TIMES DAILY 1 tablet 2 TIMES DAILY (route: oral) Med Classific ation: Central Nervous System Agents ipratropium 0.5 mg-albutero l 3 mg (2.5 mg base)/3 mL nebulizatio n soln 09-01 00:00: 00 Yes [id number] Per instruc tions NEEDED Per instructio ns NEEDED (route: inhalation ) Med Classific ation: Respirato ry Therapy Agents Jardiance 25 mg tablet 02-28 00:00: 00 06-23 23:59 :00 No [id number] 2 tablet DAILY 2 tablet DAILY (route: oral) Med Classific ation: Endocrine melatonin 10 mg capsule 09-01 00:00: 00 Yes [id number] 1 capsule BEDTIME 1 capsule BEDTIME (route: oral) Med Classific ation: Central Nervous System Agents metoprolol tartrate 25 mg tablet 02-28 00:00: 00 09-01 00:00 :00 No [id number] 1 tablet 2 TIMES DAILY 1 tablet 2 TIMES DAILY (route: oral) Med Classific ation: Cardiovas cular Therapy Agents prednisone 5 mg tablet 02-28 00:00: 00 09-01 00:00 :00 No [id number] 1 tablet DAILY 1 tablet DAILY (route: oral) Med Classific ation: Endocrine quetiapine 100 mg tablet 09-01 00:00: 00 Yes [id number] 1 tablet BEDTIME 1 tablet BEDTIME (route: oral) Med Classific ation: Central Nervous System Agents quetiapine 50 mg tablet 09-01 00:00: 00 11-17 23:59 :00 No [id number] 1 tablet DAILY 1 tablet DAILY (route: oral) Med Classific ation: Central Nervous System Agents sulindac 150 mg tablet 02-28 00:00: 00 09-01 00:00 :00 No [id number] 1 tablet 2 TIMES DAILY 1 tablet 2 TIMES DAILY (route: oral) Med Classific ation: Analgesic , Anti-infl ammatory or Antipyret ic tadalafil 10 mg tablet 09-01 00:00: 00 Yes [id number] 1 tablet DAILY 1 tablet DAILY (route: oral) Med Classific ation: Drugs to treat Erectile Dysfuncti on terazosin 5 mg capsule 09-01 00:00: 00 Yes [id number] 1 capsule BEDTIME 1 capsule BEDTIME (route: oral) Med Classific ation: Cardiovas cular Therapy Agents trazodone 50 mg tablet 09-01 00:00: 00 Yes [id number] 1 tablet BEDTIME 1 tablet BEDTIME (route: oral) Med Classific ation: Central Nervous System Agents Trelegy Ellipta 200 mcg-62.5 mcg-25 mcg powder for inhalation 09-01 00:00: 00 Yes [id number] 2 inhalat ion DAILY 2 inhalation DAILY (route: inhalation ) Med Classific ation: Respirato ry Therapy Agents Vitamin D3 25 mcg (1,000 unit) capsule 09-01 00:00: 00 Yes [id number] 1 capsule DAILY 1 capsule DAILY (route: oral) Med Classific ation: Electroly te Balance-N utritiona l Products Wellbutrin XL 150 mg 24 hr tablet, extended release 09-01 00:00: 00 Yes [id number] 1 tablet DAILY 1 tablet DAILY (route: oral) Med Classific ation: Central Nervous System Agents sulindac 150 mg tablet 2022-06 00:00: 00 09-01 00:00 :00 No [id number] 150 mg 2 TIMES DAILY 150 mg 2 TIMES DAILY (route: oral) Med Classific ation: Analgesic , Anti-infl ammatory or Antipyret ic metformin 850 mg tablet 06-28 00:00: 00 09-01 23:59 :00 No [id number] 1 tablet 2 TIMES DAILY 1 tablet 2 TIMES DAILY (route: oral) Med Classific ation: Endocrine amlodipine 5 mg tablet 09-01 00:00: 00 Yes [id number] 1 tablet DAILY 1 tablet DAILY (route: oral) Med Classific ation: Cardiovas cular Therapy Agents Fiber (with aspartame) 3.4 gram/5.8 gram oral powder 09-01 00:00: 00 Yes [id number] 5 g DAILY 5 g DAILY (route: oral) Med Classific ation: Gastroint estinal Therapy Agents furosemide 20 mg tablet 09-01 00:00: 00 Yes [id number] 1 tablet DAILY 1 tablet DAILY (route: oral) Med Classific ation: Cardiovas cular Therapy Agents Abilify 5 mg tablet 6-13 00:00: 00 Yes [id number] 1 tablet DAILY 1 tablet DAILY (route: oral) Med Classific ation: Central Nervous System Agents potassium chloride ER 10 mEq tablet,exte nded release 01-19 00:00: 00 01-20 23:59 :00 No [id number] 1 tablet DAILY 1 tablet DAILY (route: oral) Med Classific ation: Electroly te Balance-N utritiona l Products tizanidine 2 mg tablet 01-19 00:00: 00 Yes [id number] 1 tablet EVERY 8 HOURS 1 tablet EVERY 8 HOURS (route: oral) Med Classific ation: Locomotor System Creon 23,792-83,0 00-120,000 unit capsule,del ayed release 2023-06 0-24 00:00: 00 Yes [id number] 1 capsule 3 TIMES DAILY 1 capsule 3 TIMES DAILY (route: oral) Med Classific ation: Gastroint estinal Therapy Agents dicyclomine 10 mg capsule 2023-06 0-24 00:00: 00 Yes [id number] 1 capsule 4 TIMES DAILY 1 capsule 4 TIMES DAILY (route: oral) Med Classific ation: Gastroint estinal Therapy Agents tolterodine ER 4 mg capsule,ext ended release 24 hr 2023-06 024 00:00: 00 Yes [id number] 1 capsule DAILY 1 capsule DAILY (route: [...] AWARENESS FOR SAFETY AND WILL NOTIFY CLINICAL OPTICAL LABORATORY TECHNICIAN AND PHYSICIAN/PROVIDER WITH ANY CHANGE IN CONDITION. [code = SKILLED NURSE WILL MAINTAIN SITUATIONAL AWARENESS FOR SAFETY AND WILL NOTIFY CLINICAL OPTICAL LABORATORY TECHNICIAN AND PHYSICIAN/PROVIDER WITH ANY CHANGE IN CONDITION.] [...] SYMPTOMS OF SUBSTANCE USE INCLUDING PARTICIPATION IN [facility] SPECIALTY PROGRAM. INSTRUCT PATIENT ON RELATED RISKS AND WILL NOTIFY TREATMENT TEAM NEEDED.] Goal 2023-10-28 Patient Goal - NO HOSPITALIZ ATION Goal 2023-12-28 Patient Goal - NO HOSPITALIZ ATION Goal 2024-02-24 Patient Goal - NO HOSPITALIZ ATION Goal 2024-04-27 Patient Goal - STAY OUT OF [facility] Goal Patient Goal - STAY OUT OF [facility] Goal Provider Goal - A PLAN OF CARE WILL BE ESTABLISHED THAT MEETS PATIENT'S USP NEEDS AND INCLUDES PATIENT GOAL FOR HOME [...] Progress Notes <paragraph>[Visit Date: 2023 by ADILIA POWERS RN]:</paragraph><paragraph>64 YEAR OLD SINGLE MALE LIVING ALONE IN A APARTMENT IN [place]. DX INCLUDE CHRONIC PANCREATITIS, ALCOHOLISM IN REMISSION, [...] End Date/Time Encounter Type Admission Type Attending [facility] Care Department Encounter ID Discharge Date Discharge Status Discharge Condition Discharge Reason Percent Goals Met 2023-09-02 00:00:00 2024-06-27 00:00:00 Outpatient RECERTIFIC LUIS GAYTAN [facility] [id number] 25.00
== END 2024-05-26 09:50 | disposition home or self-care (01) ==
LOC: HO.CT 09:49
PROVIDERS: PCP Internal Medicine; Visit Provider Physician Assistant Medical
DX: Z12.2 Encounter for screening for malignant neoplasm of respiratory organs (principal); F17.210 Nicotine dependence, cigarettes, uncomplicated
CPT/HCPCS: 71271; G0296

== ENCOUNTER → 2024-05-26 09:51 | Outpatient (BNV) | payer OTHER, SELFPAY | PROVIDERS: PCP Internal Medicine; Visit Provider Radiology Diagnostic Radiology | DX: Z12.2 Encounter for screening for malignant neoplasm of respiratory organs (principal); F17.210 Nicotine dependence, cigarettes, uncomplicated | CPT/HCPCS: 71271 ==

== ENCOUNTER 2024-06-30 09:47 | Outpatient (REF) | payer OTHER, SELFPAY ==
[2024-06-30 10:45] LABS: Hematocrit 45.4 % (42.0-52.0); Hemoglobin 14.5 g/dl (14.0-18.0); Mean Corpuscular HGB Conc 31.9 g/dl (31.0-36.0); Mean Corpuscular Hemoglobin 27.8 pg (27.0-33.0); Mean Platelet Volume 10.2 fL (9.4-12.4); Platelet Count 208 X10*3/uL (160-400); Red Blood Count 5.22 X10*6/uL (4.60-5.80); Red Cell Distribution Width 14.5 % (11.0-16.0); White Blood Count 6.2 X10*3/uL (4.8-10.8)
[2024-06-30 12:16] LABS: Prostate Specific Antigen 1.18 ng/mL (<0.05-4.0)
[2024-07-04 12:32] LABS: Testosterone, Total 1346 ng/dL (250-1100)
== END 2024-06-30 09:48 | disposition home or self-care (01) ==
LOC: HO.LAB 09:47
PROVIDERS: PCP Urology; Visit Provider Urology
DX: E29.1 Testicular hypofunction (principal); Z12.5 Encounter for screening for malignant neoplasm of prostate
CPT/HCPCS: 36415; 84153; 84403; 85027

== ENCOUNTER → 2024-07-13 09:43 | Outpatient (BNVA) | payer OTHER, SELFPAY | PROVIDERS: PCP Urology; Visit Provider Urology | DX: N25.9 Disorder resulting from impaired renal tubular function, unspecified (principal); E29.1 Testicular hypofunction; N32.89 Other specified disorders of bladder | CPT/HCPCS: 99212 ==

== ENCOUNTER 2024-08-22 09:48 | Outpatient (AMB) | payer OTHER, SELFPAY ==
[2024-08-22 09:57] VITALS: BP 110/70; PULSE 75; O2SAT 95; BMI 22.8
--- NOTE | 2024-08-22 09:57 | MHC.OFFVIS ---
Vital Signs 08/22/24 09:57 Height 5 ft 9 in Weight 154 lb 5.177 oz BMI 22.8 BP 110/70 Blood Pressure Location Lt brachial Position Sitting Pulse 75 Pulse Source Pulse Oximeter Pulse Oximetry (%) 95 Oxygen Delivery Method Room Air Intake Visit Reasons: COPD Intake Note: pt is here for follow up and states he has been coughing and wheezing, but having some trouble with cpap usage due to a stomach issue that has been occurring. Environmental Control Administrator Required: No Allergies No Known Allergies [No Known Allergies*] Allergy (Verified 08/22/24 10:31) Medication List - Last Reconciled 08/22/24 by Tish Girard MD acetaminophen ER 650 mg PO Q8H albuterol sulfate 90 mcg/actuation 2 puffs PO Q4-6H PRN aripiprazole 5 mg PO DAILY aspirin 81 mg PO DAILY atorvastatin 80 mg PO DAILY azelastine 1 spray intranasal BID blood sugar diagnostic (FreeStyle Lite Strips) As directed blood-glucose meter (FreeStyle [place] Lite kit) As directed bupropion HCl XL 150 mg PO DAILY cholecalciferol (vitamin D3) 25 mcg PO DAILY dicyclomine 10 mg PO TIDAC empagliflozin (Jardiance) 25 mg PO DAILY famotidine 20 mg PO DAILY fluoxetine 20 mg PO DAILY fluoxetine 40 mg PO DAILY furosemide 20 mg PO DAILY gabapentin 600 mg PO BID hydroxyzine HCl 25 mg PO DAILY PRN lancets (FreeStyle Lancets) As directed hptsnh-ehgsteqr-ldfogdm 24,000-76,000 -120,000 unit (Creon) 1 cap PO DAILY PRN lofsqf-nolydfis-eexhlox 24,000-76,000 -120,000 unit (Creon) 2 caps PO TID loperamide 2 mg PO QID PRN lorazepam 1 mg PO TID PRN metoprolol tartrate 25 mg PO BID multivitamin with folic acid 400 mcg (Daily-Sadi (with folic acid)) 1 tab PO DAILY naltrexone 25 mg PO DAILY ondansetron 4 mg PO Q8H PRN potassium chloride ER 10 mEq PO DAILY quetiapine 100 mg PO BEDTIME testosterone 2 pumps topical DAILY 30 days tolterodine ER 4 mg PO DAILY 90 days trazodone 50 mg PO BEDTIME Trelegy Ellipta 200-62.5-25 mcg (ecofriybrke-tdeofcqnq-ljhuqqpq) 1 ea PO DAILY NS Do you need a note to return to daycare/school/sports/work: No HPI HPI COPD: Details: THIS 64 YEARS OLD GENTLEMAN, WITH LONGSTANDING HISTORY OF SMOKING, AND WITH SEVERE OBSTRUCTIVE AIRWAY DISORDER, COMES FOR ROUTINE FOLLOW-UP AFTER 4 MONTHS; HE HAS ALSO USED BIPAP FOR HIS RESPIRATORY FAILURE, BUT ON HIS LAST, VISIT PCO2 LEVEL WAS NORMAL AND HE WAS ADVISED THAT HE DOES NOT HAVE TO USE BIPAP, HOWEVER HE WAS STILL USING IT OFF AND ON. NOW HE IS HAVING MORE ISSUES WITH HIS PANCREAS, AND DIGESTIVE SYSTEM., HE IS NOT ABLE TO USE THE BIPAP. HE HAS CUT DOWN THE CIGARETTES TO 2 A DAY. BREATHING MARIE HE IS MUCH BETTER. HAS VERY LITTLE COUGH OR WHEEZING. HE USES TRELEGY ONCE A DAY AND ALBUTEROL ONLY NEEDED ( ONCE OR TWICE A DAY) [facility] Medical History History of alcohol use Essential hypertension Type 2 diabetes mellitus with unspecified complications Respiratory failure with hypercapnia COPD (chronic obstructive pulmonary disease) VIRAJ on CPAP Nicotine dependence, cigarettes, uncomplicated Allergic rhinitis BPH loc w urin obs/LUTS Elevated PSA Surgical History History of throat surgery History of back surgery History of back surgery Family History Father HTN (hypertension) Lung cancer Social History Household Members: None Household Members Other:: 2 Rabbits Housing: Apartment Alcohol intake: former Patient Tobacco Use Status: Current everyday Tobacco user Tobacco use type: Cigarette Cigarettes Per Day: 3 Years Smoked: (onset 19yo, 1/2ppd x 45yrs, 22pyh) Second Hand Smoke Exposure: No Advance Directives Date on File: 01/15/24 service: No Review of Systems Const All systems reviewed & are unremarkable except as noted in HPI and below Eyes Reports no additional complaints ENT Reports nasal congestion Card Reports no additional complaints Resp Reports as per HPI GI Reports no additional complaints Reports no additional complaints Musc Reports no additional complaints Skin/Breast Reports system reviewed and no additional complaints, except as documented Neuro Reports no additional complaints Psych Reports no additional complaints Physical Exam Vital Signs: Last Vital Signs Pulse 75 08/22/24 09:57 BP 110/70 08/22/24 09:57 Pulse Ox 95 08/22/24 09:57 Oxygen Delivery Method Room Air 08/22/24 09:57 BMI result Body Mass Index 22.8 Const General: healthy appearing, comfortable, no acute distress, alert and awake Orientation/consciousness: patient oriented x3 HEENT Head: Yes normal to inspection General nose exam: No nasal polyps present and No nasal discharge present Face and sinus: Yes sinuses nontender Mouth: oropharynx normal Throat: Yes posterior oropharynx normal and Yes other (Poor dental hygiene) Eyes General: appearance normal, both eyes and all related structures Neck Neck: Yes normal visual inspection, Yes no lymphadenopathy, No trachea midline (Trach stoma is healed) and Yes no JVD Thyroid: Thyroid normal Chest Chest palpation & inspection: normal inspection of the chest, normal palpation of entire chest wall and no tenderness Resp Other: Percussion note resonant, breath sounds are slightly distant with prolonged expiratory phase. Lungs are clear and no wheezes or rhonchi are heard today. Cardio Palpation: normal PMI Rate: regular rate Rhythm: regular rhythm Heart sounds: no gallops and no murmurs Peripheral pulses: Peripheral pulses 2+ throughout GI Palpation (GI): Soft to palpation, nontender, No hepatosplenomegaly present and no masses Auscultation: normal bowel sounds Back/Spine/Pelvis Thoracic/Lumbar Spine: thoracic and lumbar spine normal to inspection Skin General skin exam: no rashes or lesions noted Neuro General: patient oriented x3 and no focal motor deficits Cranial nerves: Yes CN's II-XII intact bilaterally Extrem General: Yes normal to inspection, Yes no clubbing, cyanosis or edema and Yes no calf tenderness Psych Appearance: grossly normal and well kempt Speech and movement: Normal speech and movement present Assessment & Plan Assessment & Plan (1) COPD (chronic obstructive pulmonary disease): Comment: Advanced COPD + acute on chronic respiratory failure, with hypercapnia. Doing well and lungs are clear. Code(s): J44.9 - Chronic obstructive pulmonary disease, unspecified Category: Medical Plan: Continue to use Trelegy Ellipta 1 inhalation daily Albuterol HFA 2 puffs Q 6 hours p.r.n. (2) Respiratory failure with hypercapnia: Comment: Advised to use BiPAP at home every night but is noncompliant. Respiratory failure is controlled . Last blood gas study showed pCO2 45. Code(s): J96.92 - Respiratory failure, unspecified with hypercapnia Category: Medical Plan: I told him that he should concentrate on doing deep breathing exercises, and does not have to use the BiPAP (3) Nicotine dependence, cigarettes, uncomplicated: Comment: (onset 19yo, 1/2ppd x 45yrs, 22pyh, + fam hx lung ca) now smoking only 2 cigarettes a day. Is lost LDCT in May 2024 negative Code(s): F17.210 - Nicotine dependence, cigarettes, uncomplicated Category: Medical Plan: Continue to participate in annual lung screening program Coding Level of Care Code Est Pt Level 3 (41642) Diagnoses COPD (chronic obstructive pulmonary disease) J44.9 Respiratory failure with hypercapnia J96.92 Nicotine dependence, cigarettes, uncomplicated F17.210
--- OUTSIDE RECORDS SUMMARY | 2024-08-22 10:53 | XMS_ITS | Clinical Summary ---
Author Organization [facility] Address [address] [place] [address] Phone Care Team Providers Care Community Center Coordinator Name Role Phone Saul Barbour Primary Care Provide r Allergies No known active allergies Medications aspirin (ASPIR-81 ORAL) Take 81 mg by mouth daily. Active thiamine 100 mg tablet Take 100 mg by mouth daily. Active albuterol HFA (PROAIR HFA ; PROVENTIL HFA ; VENTOLIN HFA) 90 mcg/actuation inhaler Inhale 2 Puffs into the lungs every 4 hours as needed. Active amLODIPine (NORVASC) 2.5 mg tablet Take 2.5 mg by mouth daily. Active ammonium lactate (LAC-HYDRIN) 12 % lotion Apply to soles of feet daily. At night wear socks to bed Active budesonide-formot Bakari (SYMBICORT) 160-4.5 mcg/actuation inhaler Inhale 2 Puffs into the lungs 2 times daily. Active cholecalciferol (VITAMIN D-3) 25 mcg (1,000 unit) capsule Take 1,000 capsules by mouth daily. Active DULoxetine (CYMBALTA) [address] capsule Take 20 mg by mouth daily. Active DULoxetine (CYMBALTA) [address] capsule Take 60 mg by mouth 2 times daily. Active folic acid (FOLVITE) 1 mg tablet Take 1 mg by mouth daily. Active gabapentin (NEURONTIN) 300 mg capsule Take 300 mg by mouth 2 times daily. Active levalbuterol (XOPENEX HFA) 45 mcg/actuation inhaler Inhale 1-2 Puffs into the lungs every 4 hours as needed. Active mirtazapine (REMERON) 15 mg tablet Take 15 mg by mouth at bedtime. Active QUEtiapine (SEROquel) 100 mg tablet Take 100 mg by mouth 2 times daily. Active silver sulfADIAZINE (SILVADENE, SSD) 1 % cream Apply small amount to the wound once daily before dressing with bandaid Active tamsulosin (FLOMAX) 0.4 mg 24 hr capsule Take 0.4 mg by mouth daily. Take 30 mins after same meal every day. Active tiotropium (SPIRIVA) 18 mcg per inhalation capsule Inhale 18 mcg into the lungs daily. Inhale the contents of one capsule through the Spiriva device every AM Active tiotropium (Spiriva Respimat) 1.25 mcg/actuation inhalation spray Inhale into the lungs. Active silver sulfADIAZINE (Silvadene) 1 % creamIndications: Ingrowing nail Apply topically 1 (one) time each day. 50 g 07/11/19 26 Active Encounters Date Type Department Care Team Description 07/11/2024 10:00 AM EST Procedure visit Orthopedic Surgery [address] [phone] Alvin Sheriff DPM Cellulitis of left foot (Primary Dx); Ingrowing nail 06/29/2024 10:30 AM EST Office Visit Orthopedic Surgery [place] [id number] [phone] Alvin Sheriff DPM Controlled type 2 diabetes with neuropathy (CMS/HCC) (Primary Dx); Arthritis of both feet; Hammertoes of both feet; Ingrown nail of third toe of left foot; Dermatophytosis, nail from Last 3 Months Immunizations Name Administration Dates Next Due Moderna SARS-CoV-2 COVID-19, mRNA, LNP-S, preservative free 05/26/2021,10/23/2020,09/25/2020 Social History Tobacco Use Types Packs/Day Years Used Date Smoking Tobacco: Some Days Smokeless Tobacco: Current Alcohol Use Standard Drinks/Week Comments No 0 (1 standard drink = 0.6 oz pur e alcohol) Sex and Gender Information Value Date Recorded Sex Assigned at Not on file Legal Sex Male 5:01 AM EST Gender Identity Not on file Sexual Orientation Not on file Obstetrics History Last Filed Vital Signs Vital Sign Reading Time Taken Comments Blood Pressure - - Pulse - - Temperature - - Respiratory Rate - - Oxygen Saturation - - Inhaled Oxygen Concentration - - Weight 82.6 kg (182 lb) 07/11/2024 10:03 AM EST Height 175.3 cm (5' 9 ) 06/29/2024 10:24 AM EST Body Mass Index 26.88 06/29/2024 10:24 AM EST Plan of Treatment Upcoming Encounters Date Type Department Care Team (Late st Contact Info) Description 10/12/2024 2:15 PM EDT Office Visit Orthopedic Surgery - [place] [address] [phone] Alvin Sheriff, STACEY [address] [address] Health Maintenance Due Date Last Done Comments Diabetes: Annual GFR (Glomerular Filtration Rate) 1961 Diabetes: Annual Foot Exam 1971 Diabetes: Annual Retina Eye Exam 1971 Colorectal Cancer Screening: Colonoscopy 05/10/2022 HIV Screening 05/10/2022 Hepatitis C Screening 05/10/2022 Medicare Annual Wellness Visit 05/10/2022 Social Influencers of Health Screening 05/10/2022 Diabetes: Annual Urine Albumin-Creatinine Ratio (uACR) 05/09/2024 Hypertension/CHF/CAD Annual BMP Blood Test 05/09/2024 Depression Screening 08/18/2024 08/19/2023 Diabetes: Blood Sugar Control Test (HGBA1C) 10/30/2024 05/02/2024, 09/15/2023, 07/29/2022 Cholesterol Screening (Lipid Panel) 02/17/2027 02/17/2022 DTaP,Tdap,and Td Vaccines (4 - Td or Tdap) 01/30/2033 01/30/2023, 02/17/2018, 02/03/2016 Hepatitis B Vaccines Completed 06/10/2018, 01/24/2018, 11/18/2016 Zoster Vaccines Completed 05/07/2021, 04/07, 07/13/2018 Pneumococcal Vaccine: 50+ Years Completed 12/26/2022, 03/24/2015 Pneumococcal Vaccine: Pediatrics (0 to 5 Years) and At-Risk Patients (6 to 64 Years) Completed 12/26/2022, 03/24/2015 RSV Immunization Patients 60+ Years Old Completed 07/23/2023 COVID-19 Vaccine Completed 02/08/2024, , 04/26/2022, Additional history exists Influenza Vaccine Completed 02/08/2024, , 03/05/2022, Additional history exists HIB Vaccines Aged Out No longer eligi ble based on patient's age to complete this topic HPV Vaccines Aged Out No longer eligi ble based on patient's age to complete this topic Hepatitis A Vaccines Aged Out No long er eligible based on patient's age to complete this topic IPV Vaccines Aged Out No longer eligi ble based on patient's age to complete this topic MMR Vaccines Aged Out No longer eligi ble based on patient's age to complete this topic Meningococcal ACWY Vaccine Aged Out N o longer eligible based on patient's age to complete this topic Meningococcal B Vacine Aged Out No lo nger eligible based on patient's age to complete this topic RSV Immunization Patients Under 20 months Aged Out No longer eligible based on patient's age to complete this topic Varicella Vaccines Aged Out No longer eligible based on patient's age to complete this topic Insurance [employer] MEDICARE Member Subscriber Plan / Payer (Ef fective 2019-Present) Name:Po Bower Relation to Subscriber:Self Name:Po Bower Payer ID:[id number] Group ID:[id number] Type:Not on file Address: [address] [facility] [place] [phone] Care Teams Community Center Coordinator Relationship Specialty Start Date End Date Saul Barbour [address] [place], [place] PCP - General 06/16/23
--- OUTSIDE RECORDS SUMMARY | 2024-08-22 10:53 | XMS_ITS | Clinical Summary ---
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 Per instructio ns 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 (route: transderma l) Med Classific ation: Endocrine Trelegy Ellipta 200 mcg-62.5 mcg-25 mcg powder for inhalation 02-11 00:00: 00 09-01 00:00 :00 No [id number] Per instruc tions EVERY DAY Per instructio ns EVERY DAY (route: inhalation ) Med Classific ation: Respirato ry Therapy Agents azelastine 137 mcg (0.1 %) nasal spray aerosol 09-01 00:00: 00 Yes [id number] Per instruc tions 1 SPRAY INTRANASAL LY TWICE A DAY Per instructio ns 1 SPRAY INTRANASAL LY TWICE A DAY (route: nasal) Med Classific ation: Respirato ry Therapy Agents aspirin 81 mg tablet,olya yed release 09-01 00:00: 00 Yes [id number] 1 tablet DAILY 1 tablet DAILY (route: oral) Med Classific ation: Hematolog ical Agents Alcohol Prep Pads 09-01 00:00: 00 Yes [id number] Per instruc tions 3 TIMES DAILY Per instructio ns 3 TIMES DAILY (route: topical) Med Classific ation: Antisepti cs and Disinfect ants furosemide 40 mg tablet 02-28 00:00: 00 09-01 23:59 :00 No [id number] 1 tablet 2 TIMES DAILY 1 tablet 2 TIMES DAILY (route: oral) Med Classific ation: Cardiovas cular Therapy Agents lorazepam 1 mg tablet 09-01 00:00: 00 Yes [id number] Per instruc tions THREE TIMES A DAY NEEDED Per instructio ns THREE TIMES A DAY NEEDED (route: oral) Med Classific ation: Central Nervous System Agents acetaminoph en ER 650 mg tablet,exte nded release 09-01 00:00: 00 Yes [id number] 1 tablet EVERY 8 HOURS 1 tablet EVERY 8 HOURS (route: oral) Med Classific ation: Analgesic , Anti-infl ammatory or Antipyret ic quetiapine 50 mg tablet 09-01 00:00: 00 11-17 23:59 :00 No [id number] Per instruc tions EVERY DAY NEEDED Per instructio ns EVERY DAY NEEDED (route: oral) Med Classific ation: Central Nervous System Agents metoprolol tartrate 25 mg tablet 09-01 00:00: 00 Yes [id number] 1 tablet TWICE A DAY 1 tablet TWICE A DAY (route: oral) Med Classific ation: Cardiovas cular Therapy Agents amlodipine 10 mg tablet 09-01 00:00: 00 09-01 23:59 :00 No [id number] 1 tablet DAILY 1 tablet DAILY (route: oral) Med Classific ation: Cardiovas cular Therapy Agents atorvastati n 80 mg tablet 09-01 00:00: 00 Yes [id number] 1 tablet BEDTIME 1 tablet BEDTIME (route: oral) Med Classific ation: Cardiovas cular Therapy Agents bupropion HCl XL 300 mg 24 hr tablet, extended release 09-01 00:00: 00 03-30 23:59 :00 No [id number] 1 tablet DAILY 1 tablet DAILY (route: oral) Med Classific ation: Central Nervous System Agents fluoxetine 40 mg capsule 09-01 00:00: 00 Yes [id number] 2 capsule DAILY 2 capsule DAILY (route: oral) Med Classific ation: Central Nervous System Agents gabapentin 600 mg tablet 09-01 00:00: 00 Yes [id number] 1 tablet 2 TIMES DAILY 1 tablet 2 TIMES DAILY (route: oral) Med Classific ation: Central Nervous System Agents ipratropium 0.5 mg-albutero l 3 mg (2.5 mg base)/3 mL nebulizatio n soln 09-01 00:00: 00 Yes [id number] Per instruc tions NEEDED Per instructio ns NEEDED (route: inhalation ) Med Classific ation: Respirato ry Therapy Agents Jardiance 25 mg tablet 02-28 00:00: 00 06-23 23:59 :00 No [id number] 2 tablet DAILY 2 tablet DAILY (route: oral) Med Classific ation: Endocrine melatonin 10 mg capsule 09-01 00:00: 00 Yes [id number] 1 capsule BEDTIME 1 capsule BEDTIME (route: oral) Med Classific ation: Central Nervous System Agents metoprolol tartrate 25 mg tablet 02-28 00:00: 00 09-01 00:00 :00 No [id number] 1 tablet 2 TIMES DAILY 1 tablet 2 TIMES DAILY (route: oral) Med Classific ation: Cardiovas cular Therapy Agents prednisone 5 mg tablet 02-28 00:00: 00 09-01 00:00 :00 No [id number] 1 tablet DAILY 1 tablet DAILY (route: oral) Med Classific ation: Endocrine quetiapine 100 mg tablet 09-01 00:00: 00 Yes [id number] 1 tablet BEDTIME 1 tablet BEDTIME (route: oral) Med Classific ation: Central Nervous System Agents quetiapine 50 mg tablet 09-01 00:00: 00 11-17 23:59 :00 No [id number] 1 tablet DAILY 1 tablet DAILY (route: oral) Med Classific ation: Central Nervous System Agents sulindac 150 mg tablet 02-28 00:00: 00 09-01 00:00 :00 No [id number] 1 tablet 2 TIMES DAILY 1 tablet 2 TIMES DAILY (route: oral) Med Classific ation: Analgesic , Anti-infl ammatory or Antipyret ic tadalafil 10 mg tablet 09-01 00:00: 00 Yes [id number] 1 tablet DAILY 1 tablet DAILY (route: oral) Med Classific ation: Drugs to treat Erectile Dysfuncti on terazosin 5 mg capsule 09-01 00:00: 00 Yes [id number] 1 capsule BEDTIME 1 capsule BEDTIME (route: oral) Med Classific ation: Cardiovas cular Therapy Agents trazodone 50 mg tablet 09-01 00:00: 00 Yes [id number] 1 tablet BEDTIME 1 tablet BEDTIME (route: oral) Med Classific ation: Central Nervous System Agents Trelegy Ellipta 200 mcg-62.5 mcg-25 mcg powder for inhalation 09-01 00:00: 00 Yes [id number] 2 inhalat ion DAILY 2 inhalation DAILY (route: inhalation ) Med Classific ation: Respirato ry Therapy Agents Vitamin D3 25 mcg (1,000 unit) capsule 09-01 00:00: 00 Yes [id number] 1 capsule DAILY 1 capsule DAILY (route: oral) Med Classific ation: Electroly te Balance-N utritiona l Products Wellbutrin XL 150 mg 24 hr tablet, extended release 09-01 00:00: 00 Yes [id number] 1 tablet DAILY 1 tablet DAILY (route: oral) Med Classific ation: Central Nervous System Agents sulindac 150 mg tablet 2022-06 00:00: 00 09-01 00:00 :00 No [id number] 150 mg 2 TIMES DAILY 150 mg 2 TIMES DAILY (route: oral) Med Classific ation: Analgesic , Anti-infl ammatory or Antipyret ic metformin 850 mg tablet 06-28 00:00: 00 09-01 23:59 :00 No [id number] 1 tablet 2 TIMES DAILY 1 tablet 2 TIMES DAILY (route: oral) Med Classific ation: Endocrine amlodipine 5 mg tablet 09-01 00:00: 00 Yes [id number] 1 tablet DAILY 1 tablet DAILY (route: oral) Med Classific ation: Cardiovas cular Therapy Agents Fiber (with aspartame) 3.4 gram/5.8 gram oral powder 09-01 00:00: 00 Yes [id number] 5 g DAILY 5 g DAILY (route: oral) Med Classific ation: Gastroint estinal Therapy Agents furosemide 20 mg tablet 09-01 00:00: 00 Yes [id number] 1 tablet DAILY 1 tablet DAILY (route: oral) Med Classific ation: Cardiovas cular Therapy Agents Abilify 5 mg tablet 6-13 00:00: 00 Yes [id number] 1 tablet DAILY 1 tablet DAILY (route: oral) Med Classific ation: Central Nervous System Agents potassium chloride ER 10 mEq tablet,exte nded release 01-19 00:00: 00 01-20 23:59 :00 No [id number] 1 tablet DAILY 1 tablet DAILY (route: oral) Med Classific ation: Electroly te Balance-N utritiona l Products tizanidine 2 mg tablet -15 00:00: 00 Yes [id number] 1 tablet EVERY 8 HOURS 1 tablet EVERY 8 HOURS (route: oral) Med Classific ation: Locomotor System Creon 24,000-76,0 00-120,000 unit capsule,del ayed release 2023-06 0-24 00:00: 00 Yes [id number] 1 capsule 3 TIMES DAILY 1 capsule 3 TIMES DAILY (route: oral) Med Classific ation: Gastroint estinal Therapy Agents dicyclomine 10 mg capsule 2023-06 0-24 00:00: 00 Yes [id number] 1 capsule 4 TIMES DAILY 1 capsule 4 TIMES DAILY (route: oral) Med Classific ation: Gastroint estinal Therapy Agents tolterodine ER 4 mg capsule,ext ended release 24 hr 2023-06 0-24 00:00: 00 Yes [id number] 1 capsule DAILY 1 capsule DAILY (route: oral) Med Classific ation: Genitouri nary Therapy Vital Signs Vital Name Observation Time Observation Value Commen ts Temperature 2024-07-20 17:03:00.000 97.7 [degF] Temperature 2024-07-13 16:28:00.000 97.7 [degF] Temperature 2024-07-05 13:14:00.000 97.7 [degF] Temperature 2024-06-28 15:46:00.000 97.8 [degF] Pulse 2024-08-17 15:30:00.000 82 /min Pulse 2024-07-20 17:03:00.000 66 /min Pulse 2024-07-13 16:28:00.000 62 /min Pulse 2024-07-05 13:14:00.000 89 /min Pulse 2024-06-28 15:46:00.000 85 /min Respirations 2024-08-17 15:30:00.000 18 /min Respirations 2024-07-20 17:03:00.000 18 /min Respirations 2024-07-13 16:28:00.000 18 /min Respirations 2024-07-05 13:14:00.000 18 /min Respirations 2024-06-28 15:46:00.000 18 /min Systolic Blood Pressure 2024-08-17 15:30:00.000 132 mm [Hg] Systolic Blood Pressure 2024-07-20 17:03:00.000 118 mm [Hg] Systolic Blood Pressure 2024-07-13 16:28:00.000 117 mm [Hg] Systolic Blood Pressure 2024-07-05 13:14:00.000 128 mm [Hg] Systolic Blood Pressure 2024-06-28 15:46:00.000 118 mm [Hg] Diastolic Blood Pressure 2024-08-17 15:30:00.000 84 mm [Hg] Diastolic Blood Pressure 2024-07-20 17:03:00.000 70 mm [Hg] Diastolic Blood Pressure 2024-07-13 16:28:00.000 80 mm [Hg] Diastolic Blood Pressure 2024-07-05 13:14:00.000 83 mm [Hg] Diastolic Blood Pressure 2024-06-28 15:46:00.000 79 mm [Hg] Plan of Treatment Planned Activity [...] HEALTH.] Future Scheduled Test SKILLED NU RSE FOR O/A, TEACHING AND SELF-MANAGEMENT RELATED TO HEART FAILURE. INSTRUCT PATIENT/CAREGIVER ON SIGNS AND SYMPTOMS OF EXACERBATION TO REPORT. [code = SKILLED NURSE FOR O/A, TEACHING AND SELF-MANAGEMENT RELATED TO HEART FAILURE. INSTRUCT PATIENT/CAREGIVER ON SIGNS AND SYMPTOMS OF EXACERBATION TO REPORT. ] Future Scheduled Test SKILLED NU RSE [...] PATIENTS MENTAL/BEHAVIORAL STATUS, ASSESS VITAL SIGNS EACH VISIT ALLOW 2 PRNS FOR MEDICATION MANAGEMENT. [code = SKILLED NURSE TO O/A OF PATIENTS MENTAL/BEHAVIORAL STATUS, ASSESS VITAL SIGNS EACH VISIT ALLOW 2 PRNS FOR MEDICATION MANAGEMENT.] Future Scheduled Test SKILLED NU RSE WILL MAINTAIN SITUATIONAL AWARENESS FOR SAFETY AND WILL NOTIFY CLINICAL SMOKING PIPE DRILLER AND THREADER AND PHYSICIAN/PROVIDER WITH ANY CHANGE IN CONDITION. [code = SKILLED NURSE WILL MAINTAIN SITUATIONAL AWARENESS FOR SAFETY AND WILL NOTIFY CLINICAL SMOKING PIPE DRILLER AND THREADER AND PHYSICIAN/PROVIDER WITH ANY CHANGE IN CONDITION.] Goal 2023-10-28 Patient Goal - NO HOSPITALIZ ATION Goal 2023-12-28 Patient Goal - NO HOSPITALIZ ATION Goal 2024-02-24 Patient Goal - NO HOSPITALIZ ATION Goal 2024-04-27 Patient Goal - STAY OUT OF T HOSPITAL Goal 2024-06-23 Patient Goal - STAY OUT OF [facility] Goal Patient Goal - STAY OUT OF [facility] Goal Provider Goal - A PLAN OF CARE WILL BE ESTABLISHED THAT MEETS PATIENT'S SENIOR LIVING NEEDS AND INCLUDES PATIENT GOAL FOR HOME HEALTH. Goal Provider Goal - PATIENT/CAREGIVER WILL VERBALIZE/DEMONSTRATE KNOWLEDGE AND MANAGEMENT OF HEART FAILURE DISEASE PROCESS BY END OF EPISODE. Goal Provider Goal - PATIENT/CAREGIVER WILL VERBALIZE SIGNS AND SYMPTOMS OF EXACERBATION OF DIABETES REPORT TO NURSE/PHYSICIAN THROUGHOUT THE CERTIFICATION PERIOD. Goal Provider Goal - PATIENT WILL BE ABLE TO PERFORM DAILY FUNCTIONS AND HAVE OPTIMAL IMPROVEMENT IN LEVEL OF ANXIETY THROUGHOUT CERTIFICATION PERIOD. Goal Provider Goal - PATIENT WILL REMAIN SAFE WITHOUT DECOMPENSATION IN DEPRESSIVE CONDITION, WHILE MAINTAINING OPTIMAL LEVEL OF MENTAL HEALTH AND WELL BEING THROUGHOUT CERTIFICATION PERIOD. Goal Provider Goal - ALTERED MENTAL/BEHAVIORAL STATUS WILL BE IDENTIFIED PROMPTLY AND INTERVENTION INITIATED QUICKLY TO MINIMIZE ASSOCIATED RISKS THROUGHOUT CERTIFICATION PERIOD. Goal Provider Goal - PATIENT WILL REMAIN SAFE IN THE COMMUNITY AND WILL BE FREE OF DANGER TO SELF AND OTHERS THROUGHOUT THE CERTIFICATION PERIOD. Progress Notes Progress Notes <paragraph>[Visit Date: 2024 by LUIS OGDEN RN]:</paragraph><paragraph>PATIENT AT HIS NEW APARTMENT. PATIENTS ROOM VERY CLUTTERED WITH BOXES. PATIENT HAS HIS RABBIT FEED IN THE MIDDLE OF HIS ROOM WHICH IS A FALL RISK.</paragraph> Encounters Start Date/Time End Date/Time Encounter Type Admission Type Attending [facility] Facility Care Department Encounter ID Discharge Date Discharge Status Discharge Condition Discharge Reason Percent Goals Met 2023-09-02 00:00:00 2024-08-26 00:00:00 Outpatient RECERTIFIC ATION LUIS OGDEN [facility] [id number] 41.67
--- OUTSIDE RECORDS SUMMARY | 2024-08-22 10:54 | XMS_ITS | Clinical Summary ---
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 Per instructio ns 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 (route: transderma l) Med Classific ation: Endocrine Trelegy Ellipta 200 mcg-62.5 mcg-25 mcg powder for inhalation 02-11 00:00: 00 09-01 00:00 :00 No [id number] Per instruc tions EVERY DAY Per instructio ns EVERY DAY (route: inhalation ) Med Classific ation: Respirato ry Therapy Agents azelastine 137 mcg (0.1 %) nasal spray aerosol 09-01 00:00: 00 Yes [id number] Per instruc tions 1 SPRAY INTRANASAL LY TWICE A DAY Per instructio ns 1 SPRAY INTRANASAL LY TWICE A DAY (route: nasal) Med Classific ation: Respirato ry Therapy Agents aspirin 81 mg tablet,olya yed release 09-01 00:00: 00 Yes [id number] 1 tablet DAILY 1 tablet DAILY (route: oral) Med Classific ation: Hematolog ical Agents Alcohol Prep Pads 09-01 00:00: 00 Yes [id number] Per instruc tions 3 TIMES DAILY Per instructio ns 3 TIMES DAILY (route: topical) Med Classific ation: Antisepti cs and Disinfect ants furosemide 40 mg tablet 02-28 00:00: 00 09-01 23:59 :00 No [id number] 1 tablet 2 TIMES DAILY 1 tablet 2 TIMES DAILY (route: oral) Med Classific ation: Cardiovas cular Therapy Agents lorazepam 1 mg tablet 09-01 00:00: 00 Yes [id number] Per instruc tions THREE TIMES A DAY NEEDED Per instructio ns THREE TIMES A DAY NEEDED (route: oral) Med Classific ation: Central Nervous System Agents acetaminoph en ER 650 mg tablet,exte nded release 09-01 00:00: 00 Yes [id number] 1 tablet EVERY 8 HOURS 1 tablet EVERY 8 HOURS (route: oral) Med Classific ation: Analgesic , Anti-infl ammatory or Antipyret ic quetiapine 50 mg tablet 09-01 00:00: 00 11-17 23:59 :00 No [id number] Per instruc tions EVERY DAY NEEDED Per instructio ns EVERY DAY NEEDED (route: oral) Med Classific ation: Central Nervous System Agents metoprolol tartrate 25 mg tablet 09-01 00:00: 00 Yes [id number] 1 tablet TWICE A DAY 1 tablet TWICE A DAY (route: oral) Med Classific ation: Cardiovas cular Therapy Agents amlodipine 10 mg tablet 09-01 00:00: 00 09-01 23:59 :00 No [id number] 1 tablet DAILY 1 tablet DAILY (route: oral) Med Classific ation: Cardiovas cular Therapy Agents atorvastati n 80 mg tablet 09-01 00:00: 00 Yes [id number] 1 tablet BEDTIME 1 tablet BEDTIME (route: oral) Med Classific ation: Cardiovas cular Therapy Agents bupropion HCl XL 300 mg 24 hr tablet, extended release 09-01 00:00: 00 03-30 23:59 :00 No [id number] 1 tablet DAILY 1 tablet DAILY (route: oral) Med Classific ation: Central Nervous System Agents fluoxetine 40 mg capsule 09-01 00:00: 00 Yes [id number] 2 capsule DAILY 2 capsule DAILY (route: oral) Med Classific ation: Central Nervous System Agents gabapentin 600 mg tablet 09-01 00:00: 00 Yes [id number] 1 tablet 2 TIMES DAILY 1 tablet 2 TIMES DAILY (route: oral) Med Classific ation: Central Nervous System Agents ipratropium 0.5 mg-albutero l 3 mg (2.5 mg base)/3 mL nebulizatio n soln 09-01 00:00: 00 Yes [id number] Per instruc tions NEEDED Per instructio ns NEEDED (route: inhalation ) Med Classific ation: Respirato ry Therapy Agents Jardiance 25 mg tablet 02-28 00:00: 00 06-23 23:59 :00 No [id number] 2 tablet DAILY 2 tablet DAILY (route: oral) Med Classific ation: Endocrine melatonin 10 mg capsule 09-01 00:00: 00 Yes [id number] 1 capsule BEDTIME 1 capsule BEDTIME (route: oral) Med Classific ation: Central Nervous System Agents metoprolol tartrate 25 mg tablet 02-28 00:00: 00 09-01 00:00 :00 No [id number] 1 tablet 2 TIMES DAILY 1 tablet 2 TIMES DAILY (route: oral) Med Classific ation: Cardiovas cular Therapy Agents prednisone 5 mg tablet 02-28 00:00: 00 09-01 00:00 :00 No [id number] 1 tablet DAILY 1 tablet DAILY (route: oral) Med Classific ation: Endocrine quetiapine 100 mg tablet 09-01 00:00: 00 Yes [id number] 1 tablet BEDTIME 1 tablet BEDTIME (route: oral) Med Classific ation: Central Nervous System Agents quetiapine 50 mg tablet 09-01 00:00: 00 11-17 23:59 :00 No [id number] 1 tablet DAILY 1 tablet DAILY (route: oral) Med Classific ation: Central Nervous System Agents sulindac 150 mg tablet 02-28 00:00: 00 09-01 00:00 :00 No [id number] 1 tablet 2 TIMES DAILY 1 tablet 2 TIMES DAILY (route: oral) Med Classific ation: Analgesic , Anti-infl ammatory or Antipyret ic tadalafil 10 mg tablet 09-01 00:00: 00 Yes [id number] 1 tablet DAILY 1 tablet DAILY (route: oral) Med Classific ation: Drugs to treat Erectile Dysfuncti on terazosin 5 mg capsule 09-01 00:00: 00 Yes [id number] 1 capsule BEDTIME 1 capsule BEDTIME (route: oral) Med Classific ation: Cardiovas cular Therapy Agents trazodone 50 mg tablet 09-01 00:00: 00 Yes [id number] 1 tablet BEDTIME 1 tablet BEDTIME (route: oral) Med Classific ation: Central Nervous System Agents Trelegy Ellipta 200 mcg-62.5 mcg-25 mcg powder for inhalation 09-01 00:00: 00 Yes [id number] 2 inhalat ion DAILY 2 inhalation DAILY (route: inhalation ) Med Classific ation: Respirato ry Therapy Agents Vitamin D3 25 mcg (1,000 unit) capsule 09-01 00:00: 00 Yes [id number] 1 capsule DAILY 1 capsule DAILY (route: oral) Med Classific ation: Electroly te Balance-N utritiona l Products Wellbutrin XL 150 mg 24 hr tablet, extended release 09-01 00:00: 00 Yes [id number] 1 tablet DAILY 1 tablet DAILY (route: oral) Med Classific ation: Central Nervous System Agents sulindac 150 mg tablet 2022-06 00:00: 00 09-01 00:00 :00 No [id number] 150 mg 2 TIMES DAILY 150 mg 2 TIMES DAILY (route: oral) Med Classific ation: Analgesic , Anti-infl ammatory or Antipyret ic metformin 850 mg tablet 06-28 00:00: 00 09-01 23:59 :00 No [id number] 1 tablet 2 TIMES DAILY 1 tablet 2 TIMES DAILY (route: oral) Med Classific ation: Endocrine amlodipine 5 mg tablet 09-01 00:00: 00 Yes [id number] 1 tablet DAILY 1 tablet DAILY (route: oral) Med Classific ation: Cardiovas cular Therapy Agents Fiber (with aspartame) 3.4 gram/5.8 gram oral powder 09-01 00:00: 00 Yes [id number] 5 g DAILY 5 g DAILY (route: oral) Med Classific ation: Gastroint estinal Therapy Agents furosemide 20 mg tablet 09-01 00:00: 00 Yes [id number] 1 tablet DAILY 1 tablet DAILY (route: oral) Med Classific ation: Cardiovas cular Therapy Agents Abilify 5 mg tablet 6-13 00:00: 00 Yes [id number] 1 tablet DAILY 1 tablet DAILY (route: oral) Med Classific ation: Central Nervous System Agents potassium chloride ER 10 mEq tablet,exte nded release 01-19 00:00: 00 01-20 23:59 :00 No [id number] 1 tablet DAILY 1 tablet DAILY (route: oral) Med Classific ation: Electroly te Balance-N utritiona l Products tizanidine 2 mg tablet -15 00:00: 00 Yes [id number] 1 tablet EVERY 8 HOURS 1 tablet EVERY 8 HOURS (route: oral) Med Classific ation: Locomotor System Creon 24,000-76,0 00-120,000 unit capsule,del ayed release 2023-06 0-24 00:00: 00 Yes [id number] 1 capsule 3 TIMES DAILY 1 capsule 3 TIMES DAILY (route: oral) Med Classific ation: Gastroint estinal Therapy Agents dicyclomine 10 mg capsule 2023-06 0-24 00:00: 00 Yes [id number] 1 capsule 4 TIMES DAILY 1 capsule 4 TIMES DAILY (route: oral) Med Classific ation: Gastroint estinal Therapy Agents tolterodine ER 4 mg capsule,ext ended release 24 hr 2023-06 0-24 00:00: 00 Yes [id number] 1 capsule DAILY 1 capsule DAILY (route: [...] AWARENESS FOR SAFETY AND WILL NOTIFY CLINICAL HOSPICE CLINICAL MANAGER AND PHYSICIAN/PROVIDER WITH ANY CHANGE IN CONDITION. [code = SKILLED NURSE WILL MAINTAIN SITUATIONAL AWARENESS FOR SAFETY AND WILL NOTIFY CLINICAL HOSPICE CLINICAL MANAGER AND PHYSICIAN/PROVIDER WITH ANY CHANGE IN CONDITION.] Goal 2023-10-28 Patient Goal - NO HOSPITALIZ ATION Goal 2023-12-28 Patient Goal - NO HOSPITALIZ ATION Goal 2024-02-24 Patient Goal - NO HOSPITALIZ ATION Goal 2024-04-27 Patient Goal - STAY OUT OF T HOSPITAL Goal 2024-06-23 Patient Goal - STAY OUT OF [facility] Goal Patient Goal - STAY OUT OF [facility] Goal Provider Goal - A PLAN OF CARE WILL BE ESTABLISHED THAT MEETS PATIENT'S MCC NEEDS AND INCLUDES PATIENT GOAL FOR HOME [...] End Date/Time Encounter Type Admission Type Attending [facility] Facility Care Department Encounter ID Discharge Date Discharge Status Discharge Condition Discharge Reason Percent Goals Met 2023-09-02 00:00:00 2024-08-26 00:00:00 Outpatient RECERTIFIC ATION LUIS OGDEN [facility] [id number] 41.67
--- OUTSIDE RECORDS SUMMARY | 2024-08-22 10:54 | XMS_ITS | Encounter Summary ---
Author Organization [employer] Address [address] [place] [address] Care Team Providers Care Auto Bumper Mechanic Name Role Phone Saul Barbour MD Primary Care Prov ider Encounter Details Date Type Department Care Team ([facility] Contact Info) Description 05/19/2024 Orders Only [facility] [address] [place], [place] [id number] ProviderAndrea MD Social History Tobacco Use Types Packs/Day Years Used Date Smoking Tobacco: Every Day Cigarettes Passive Smoke Exposure: Never Smokeless Tobacco: Never Alcohol Use Standard Drinks/Week Comments Never 0 (1 standard drink = 0.6 oz pur e alcohol) Depression Answer Date Recorded Patient Health Questionnaire-9 Score 15 08/19/2023 Patient Health Questionnaire-9 Score 15 08/19/2023 Last PHQ-9: Questionnaire Data Not on file 0 08/19/2023 Housing Stability Answer Date Recorded What is your housing situation today? I have [facility] [place] 11/02/[address] you li ve. Do you have problems with any of the following? None of the above 11/02/2023 Food Insecurity Answer Date Recorded Within the past 12 months, y ou worried that your food would run out before you got money to buy more: Never True 11/02/2023 Within the past 12 months,th e food you bought just didn't last and you didn't have enough money to get more: Never True Transportation Answer Date Recorded In the past 12 months, has l ack of transportation kept you from medical appts, meetings, work or from getting things needed for daily living? No 11/02/2023 Utilities Answer Date Recorded In the past 12 months, has t he electric, gas, oil or water company threatened to shut off services in your home? No 11/02/2023 Depression Answer Date Recorded Patient Health Questionnaire-2 Score 4 08/19/2023 Sex and Gender Information Value Date Recorded Sex Assigned at Male 04/06/2022 10:30 AM EDT Legal Sex Male 10:30 AM EDT Gender Identity Male 04/06/2022 10:30 AM EDT Sexual Orientation Straight 04/06/2022 10 :30 AM EDT documented as of this encounter Plan of Treatment Not on file documented as of this encounter Procedures Procedure Name Priority Date/Time Associated Diagnosis Comments HEMOGLOBIN A1C Routine 05/02/2024 11:16 AM EST documented in this encounter Results * Hemoglobin A1c (05/02/2024 11:16 AM EST) Blood Venous blood specimen / Unknown us Historical Provider LAB BLOOD ORDERABLES Shaneka l Result documented in this encounter Visit Diagnoses Not on filedocumented in this encounter Additional Health Concerns Assessment Noted Time PHQ-9 Depression Total Score: 15 024 2:48 PM EDT documented as of this encounter Care Teams Auto Bumper Mechanic Relationship Specialty Start Date End Date Saul Barbour MD [address] [place] [id number] PCP - General Internal Medicine 10/27/19 Harshad Ho 08/13/23 documented as of this encounter
--- OUTSIDE RECORDS SUMMARY | 2024-08-22 10:54 | XMS_ITS | Encounter Summary ---
Author Organization [employer] Address [address] [facility] 7t [place] [address] Care Team Providers Care Tumbler Operator Name Role Phone Saul Barbour MD Primary Care Prov ider Reason for Visit * Reason Onset Date Comments Medication Question 07/28/2022 Encounter Details Date Type Department Care Team ([facility] Contact Info) Description 07/28/2022 Telephone [facility] MEDICINE [address] [place] [address] Saul Barbour MD [address] [place] [address] Medication Question Social History Tobacco Use Types Packs/Day Years Used Date Smoking Tobacco: Every Day Cigarettes Passive Smoke Exposure: Never Smokeless Tobacco: Never Alcohol Use Standard Drinks/Week Comments Never 0 (1 standard drink = 0.6 oz pur e alcohol) Depression Answer Date Recorded Patient Health Questionnaire-9 Score 26 05/22/2022 Depression Answer Date Recorded Patient Health Questionnaire-2 Score 6 05/22/2022 Sex and Gender Information Value Date Recorded Sex Assigned at Male 04/06/2022 10:30 AM EDT Legal Sex Male 10:30 AM EDT Gender Identity Male 04/06/2022 10:30 AM EDT Sexual Orientation Straight 04/06/2022 10 :30 AM EDT COVID-19 Exposure Response Date Recorded In the last 10 days, have yo u been in contact with someone who was confirmed or suspected to have Coronavirus/COVID-19? No / Unsure 07/16/2022 10:47 AM EST documented as of this encounter Miscellaneous Notes * Telephone Encounter - Melissa Neal LPN - 08/24/2022 8:51 AM EDT NURSING TEACHER HOANG BERNABE MESSAGE BELOW * Telephone Encounter - Thomas Boothe - 07/28/2022 4:46 PM EST Tc from doug with [facility] requesting a call back regarding medication Please contact doug at [phone] documented in this encounter Plan of Treatment Not on file documented as of this encounter Visit Diagnoses Not on filedocumented in this encounter Additional Health Concerns Assessment Noted Time PHQ-9 Depression Total Score: 26 1216/ 022 10:52 AM EST documented as of this encounter Care Teams Tumbler Operator Relationship Specialty Start Date End Date Saul Barbour MD [address] [place] [address] PCP - General Internal Medicine 10/27/19 Harshad Ho 08/13/23 documented as of this encounter
--- OUTSIDE RECORDS SUMMARY | 2024-08-22 10:54 | XMS_ITS | Encounter Summary ---
Author Organization [employer] Address [address] [facility] [address] 7t [place] [address] Care Team Providers Care Psychosocial Rehabilitation Counselor Name Role Phone Saul Barbour MD Primary Care Prov ider Encounter Details Date Type Department Care Team ([facility] st Contact Info) Description 09/23/2023 Orders Only [facility] MEDICINE [address] [place] [address] ProviderAndrea MD Social History Tobacco Use Types [...] housing situation today? I have [place] 03/22/[address] you li ve. Do you have problems with any of the following? None of the above 03/22/2023 Food Insecurity Answer Date Recorded Within the past 12 months, y ou worried that your food would run out before you got money to buy more: Never True 03/22/2023 Within the past 12 months,th e food you bought just didn't last and you didn't have enough money to get more: Never True Transportation Answer Date Recorded In the past 12 months, has l ack of transportation kept you from medical appts, meetings, work or from getting things needed for daily living? No 03/22/2023 Utilities Answer Date Recorded In the past 12 months, has t he electric, gas, oil or water company threatened to shut off services in your home? No 03/22/2023 Depression Answer Date Recorded Patient Health Questionnaire-2 [...] Procedure Name Priority Date/Time Associated Diagnosis Comments TISSUE PATHOLOGY Routine 08/30/2023 4:16 PM EDT documented in this encounter Results * Tissue Pathology (08/30/2023 4:16 PM EDT) Tissue us Historical Provider LAB PATHOLOGY ORDERABLES Final Result documented in this encounter Visit Diagnoses Not on filedocumented in this encounter Additional Health Concerns Assessment Noted Time PHQ-9 Depression Total Score: 15 024 2:48 PM EDT documented as of this encounter Care Teams Psychosocial Rehabilitation Counselor Relationship Specialty Start Date End Date Saul Barbour MD [address] [place] [address] PCP - General Internal Medicine 10/27/19 Harshad Ho 08/13/23 documented as of this encounter
--- OUTSIDE RECORDS SUMMARY | 2024-08-22 10:54 | XMS_ITS | Encounter Summary ---
Author Organization [employer] Address [address] [facility] [address] 7t [place] [address] Care Team Providers Care Payroll Representative Name Role Phone Saul Barbour MD Primary Care Prov ider Encounter Details Date Type Department Care Team ([facility] st Contact Info) Description 12/13/2023 Telephone [facility] MEDICINE [address] [place] [address] Saul Barbour MD [address] [place] [address] Social History Tobacco Use Types Packs/Day Years [...] documented as of this encounter Care Teams Payroll Representative Relationship Specialty Start Date End Date Saul Barbour MD [address] [place] [address] PCP - General Internal Medicine 10/27/19 Harshad Ho 08/13/23 documented as of this encounter
--- OUTSIDE RECORDS SUMMARY | 2024-08-22 10:54 | XMS_ITS | Encounter Summary ---
Author Organization [employer] Address 75 [facility] 7t [place] [address] Care Team Providers Care Soft Hat Binder Name Role Phone Saul Barbour MD Primary Care Prov ider Encounter Details Date Type Department Care Team ([facility] Contact Info) Description 09/17/2023 Orders Only [facility] CH[facility] MED & PEDS [address] [place], [place] [phone] Saul Barbour MD [address] [place] [address] Social History Tobacco Use Types Packs/Day Years [...] documented as of this encounter Care Teams Soft Hat Binder Relationship Specialty Start Date End Date Saul Barbour MD [address] [place] [address] PCP - General Internal Medicine 10/27/19 Harshad Ho 08/13/23 documented as of this encounter
--- OUTSIDE RECORDS SUMMARY | 2024-08-22 10:54 | XMS_ITS | Encounter Summary ---
Author Organization [employer] Address 75 [facility] 7t [place] [address] Care Team Providers Care Pulp Roller Name Role Phone Saul Barbour MD Primary Care Prov ider Reason for Visit * Reason Onset Date Comments Med Refill 12/13/2023 Encounter Details Date Type Department Care Team ([facility] st Contact Info) Description 12/13/2023 Telephone [facility] MEDICINE [address] [place] [address] Saul Barbour MD [address] [place] [address] Med Refill Social History Tobacco Use Types Packs/Day Years [...] AM EDT documented as of this encounter Miscellaneous Notes * Telephone Encounter - Tarah Cox - 12/13/2023 2:14 PM EDT TC from pt requesting medication refill. Medications needing refill : ondansetron ODT (Zofran-ODT) 4 MG disintegrating tablet To be sent to: [facility]/pharmacy #[id number] - [place], [place] - [address] [place] [address] documented in this encounter Plan of Treatment Not on file documented as of this encounter Visit Diagnoses Not on filedocumented in this encounter Additional Health Concerns Assessment Noted Time PHQ-9 Depression Total Score: 15 024 2:48 PM EDT documented as of this encounter Care Teams Pulp Roller Relationship Specialty Start Date End Date Saul Barbour MD [address] [place] [address] PCP - General Internal Medicine 10/27/19 Harshad Ho 08/13/23 documented as of this encounter
--- OUTSIDE RECORDS SUMMARY | 2024-08-22 10:54 | XMS_ITS | Encounter Summary ---
Author Organization [employer] Address 75 [facility] 7t [place] [address] Care Team Providers Care Community Health Nurse Supervisor Name Role Phone Saul Barbour MD Primary Care Prov ider Reason for Visit * Reason Onset Date Comments Med Refill 11/30/2023 Encounter Details Date Type Department Care Team ([facility] Contact Info) Description 11/30/2023 Telephone [facility] CHC MED & PEDS [address] [place] [address] Saul Barbour MD [address] [place] [address] Med Refill Social History Tobacco Use Types [...] encounter Miscellaneous Notes * Telephone Encounter - Ml Robles LPN - 11/30/2023 1:03 PM EDT Medication was sent to [facility] #[id number] on 11/23/23 with 1 refill. * Telephone Encounter - Nakita Cuevas - 11/30/2023 12:14 PM EDT TC from pt requesting medication refill. Medications needing refill : ondansetron ODT (Zofran-ODT) 4 MG disintegrating tablet To be sent to: [facility]/pharmacy #[id number] - [place] - [address] [place] [address] documented in this encounter Plan of Treatment Not on file documented as of this encounter Visit Diagnoses Not on filedocumented in this encounter Additional Health Concerns Assessment Noted Time PHQ-9 Depression Total Score: 15 024 2:48 PM EDT documented as of this encounter Care Teams Community Health Nurse Supervisor Relationship Specialty Start Date End Date Saul Barbour MD [address] [place] [address] [place] [address] PCP - General Internal Medicine 10/27/19 Harshad Ho 08/13/23 documented as of this encounter
--- OUTSIDE RECORDS SUMMARY | 2024-08-22 10:54 | XMS_ITS | Encounter Summary ---
Author Organization [employer] Address 75 [facility] 7t [place] [address] Care Team Providers Care Boat Patcher Plastic Name Role Phone Saul Barbour MD Primary Care Prov ider Reason for Visit * Reason Comments Med Change Request Encounter Details Date Type Department Care Team ([facility] Contact Info) Description 10/03/2022 Refill [facility] MED & [facility]EDS [address] [place] [address] Saul Barbour MD [address] [place] [address] Type 2 diabetes mellitus with stage 3b chronic kidney disease, without long-term current use of insulin ([facility]) Social History Tobacco Use Types Packs/Day Years [...] suspected to have Coronavirus/COVID-19? No / Unsure 09/04/2022 8:00 AM EDT documented as of this encounter Plan of Treatment Not on file documented as of this encounter Visit Diagnoses Diagnosis Type 2 diabetes mellitus with stage 3b chronic kidney disease, without long-term current use of insulin ([facility]) documented in this encounter Additional Health Concerns Assessment Noted Time PHQ-9 Depression Total Score: 26 05/22/ 022 10:52 AM EST documented as of this encounter Care Teams Boat Patcher Plastic Relationship Specialty Start Date End Date Saul Barbour MD [address] [place] [address] PCP - General Internal Medicine 10/27/19 Harshad Ho 08/13/23 documented as of this encounter
--- OUTSIDE RECORDS SUMMARY | 2024-08-22 10:54 | XMS_ITS | Data Portability ---
Author Organization [employer] Address [address] [place] [phone] Care Team Providers Care Hose Operator Name Role Phone [facility] OTHER [facility] OTHER Assessment Encounter Date Assessment Date Assessment LastModified by Organization Details LastModified Time 08/19/2022 08/19/2022 I have reviewed and agree with the assessment and plan as documented by the help desk representative. I provided real time medical direction for this encounter and was immediately available to provide additional phone based assistance as needed. History as noted by help desk representative. Pt with history of alcoholic gastritis, AUD [...] assessment and plan as documented by the help desk representative. I provided real-time medical direction for this encounter and was immediately available to provide additional phone-based assistance as needed. History as noted in EMR and by help desk representative. I would add / emphasize: Patient with [...] BMP, serum or plasma 024 12/14/19 24 [facility], [address] [place] [address], [phone], 4 08:56:22 Referral None recorded . Procedures [...] Not Available Not Available Not Available FreeStyle Allen Lite kit TAKE 1 DROP BY SUBCUTANEOU [...] % 175.26 cm 16 /min 97.9 [degF] 84989.6 16 g 107 mm[Hg] 64 mm[Hg] Not Available [employer] 4 15:12:09 Date Recorded Heart rate Oxygen [...] mm[Hg] 115 mm[Hg] 70 mm[Hg] Not Available [employer] 3 12:16:25 Social History None recorded. Functional Status None recorded. Mental Status None recorded. Family History Nothing Reported. Medical History No medical history recorded. Past Encounters Encounter ID Performer Location Encounter Start Date Encounter Closed Date Diagnosis/Indication Diagnosis SNOMED-CT Code Diagnosis ICD10 Code Diagnosis Note [id number] Damian Urrutia MD Main - [address] [phone] 08/19/2022 12:02:34 08/21/2022 10:58:22 Right upper quadrant pain 489653836 R10.11 [id number] Augustus Osorio MD [facility] - [address] [address] 12/14/2023 15:11:59 12/14/2023 17:08:41 Edema of lower extremity 644928239 R60.0 Health Concerns Section Related Observation LastModified by Organization Detai ls LastModified Time None Recorded Concern Status LastModified by Organization Details LastModified Time None Recorded Advance Directives Directive None Recorded Payers Encounter Date Sequence Insurance Name Policy Number Policy De La Vega Covered Member ID De La Vega Member ID Guarantor Name 08/19/2022 1 [facility] - DOS PRIOR TO 2022 - DUAL ELIGIBLE (MEDICARE REPLACEMENT/ADV ANTAGE - HMO) Po Bower [id number] Po [place]le Rollsaurabh 12/14/2023 1 [facility] - DOS ON OR AFTER 2022 - DUAL ELIGIBLE - JAIL OPTIONS AND ONE CARE (MEDICARE REPLACEMENT/ADV ANTAGE - HMO) Po Bower [id number] [employer] [place] Rollend Notes Date Note Type Note Provider Name and Address Organization Details Recorded Time 08/19/2022 text/html This was a supervised home visit with help desk representative Keysha Valentin. HPI: 62 y.o. M c/o [...] any hx of liver issues. Mbr has [facility] and Kimmy visiting nurse was [...] ................... ................... ................... ................... ................... ................... ........ Internal Revenue Agent Note From Keysha Valentin: Sent to evaluate [...] to make them aware of pain. Consulted [facility] who advised that pt needs to contact PCP to make them aware and to potentially arrange for imaging. [facility] explained red flags to trigger ER visit. Pt made aware and advised that he will contact PCP today. No further questions or concerns at this time. ................... ................... ................... ................... ................... ................... ................... ........ Disposition: Juliana Urrutia MD [address], [place], [address], [place] [employer] 08/19/2022 15:08:54 12/14/2023 text/html HPI: Call returned [...] and assess vitals as no appointments at [facility] today or tomorrow. Reviewed home care advise, ER precautions and reasons to call back. ................... ................... ................... ................... ................... ................... ................... ........ CRC Nurse Triage Notes (Shadia Loya): Comments: CRC RN DID NOT NEED FURTHER INFO Internal Revenue Agent POC Test Results from Ronn Tovar [facility] (15:22:34) pH: 7.41 pH units pCO2: 43.1 mmHg pO2: 49.5 mmHg Na: 142 mmol/L K: 4.0 mmol/L iCa: 1.20 mmol/L Cl: 103 mmol/L TCO2: 27.1 mEq/L Hct: 38 % Hb: 13.0 g/dL Glu: 100 mg/dL Lac: 1.7 mmol/L Cr: 2.0 mg/dL BUN: 9 mg/dL A ................... ................... ................... ................... ................... ................... ................... ........ Internal Revenue Agent Note From Ronn Tovar: Pt reports increased [...] ........ Disposition: Fulfilled Augustus Osorio MD [address] [facility],[address], [place], [address], [place] [employer] - DIANNE MALDONADO 12/14/2023 19:38:56
--- OUTSIDE RECORDS SUMMARY | 2024-08-22 10:54 | XMS_ITS | Encounter Summary ---
Author Organization [employer] Address 75 [facility] 7t [place] [address] Care Team Providers Care Butcher Scullion Name Role Phone Saul Barbour MD Primary Care Prov ider Encounter Details Date Type Department Care Team ([facility] Contact Info) Description 11/18/2023 Telephone [facility] CHC MED & PEDS [address] [place] [address] Saul Barbour MD [address] [place] [address] Social History Tobacco Use Types Packs/Day Years [...] encounter Miscellaneous Notes * Telephone Encounter - Wing Scarlett RN - 11/19/2023 9:34 AM EDT Tc to pt's pharmacy and soke to [facility], she stated the Lancet Device is ready for pick up worker. She statedshe would call pt that it is ready to pick up worker. * Telephone Encounter - Nakita Cuevas - 11/18/2023 1:13 PM EDT Tc from pt requesting Lancet Devices (Lancing Device) misc . States [facility] called [facility] and they have not yet gotten device. Please call pt to clarify . documented in this encounter Plan of Treatment Not on file documented as of this encounter Visit Diagnoses Not on filedocumented in this encounter Additional Health Concerns Assessment Noted Time PHQ-9 Depression Total Score: 15 024 2:48 PM EDT documented as of this encounter Care Teams Butcher Scullion Relationship Specialty Start Date End Date Saul Barbour MD [address] [place] [address] PCP - General Internal Medicine 10/27/19 Harshad Ho 08/13/23 documented as of this encounter
--- OUTSIDE RECORDS SUMMARY | 2024-08-22 10:54 | XMS_ITS | Encounter Summary ---
Author Organization [employer] Address 75 [facility] 7t [place] [address] Care Team Providers Care Online Marketing Manager Name Role Phone Saul Barbour MD Primary Care Prov ider Reason for Visit * Reason Onset Date Comments Durable Medical Equipment 08/03/2023 Encounter Details Date Type Department Care Team ([facility] st Contact Info) Description 08/03/2023 Telephone [facility] MEDICINE [address] [place] [address] Saul Barbour MD [address] [place] [address] Durable Medical Equipment Social History Tobacco Use Types Packs/Day Years Used Date Smoking Tobacco: Every Day Cigarettes Passive Smoke Exposure: Never Smokeless Tobacco: Never Alcohol Use Standard Drinks/Week Comments Never 0 (1 standard drink = 0.6 oz pur e alcohol) Depression Answer Date Recorded Patient Health Questionnaire-9 Score 18 06/15/2023 Patient Health Questionnaire-9 Score 18 06/15/2023 Last PHQ-9: Questionnaire Data Not on file 0 06/15/2023 Housing Stability Answer Date Recorded What is [...] Answer Date Recorded Patient Health Questionnaire-2 Score 5 06/15/2023 Sex and Gender Information Value Date Recorded Sex Assigned at Male 04/06/2022 10:30 AM EDT Legal Sex Male 10:30 AM EDT Gender Identity Male 04/06/2022 10:30 AM EDT Sexual Orientation Straight 04/06/2022 10 :30 AM EDT documented as of this encounter Miscellaneous Notes * Telephone Encounter - Tarah Cox - 08/03/2023 3:39 PM EST Tc from pt requesting glucose meter. Pt stated his is broken. documented in this encounter Plan of Treatment Not on file documented as of this encounter Visit Diagnoses Not on filedocumented in this encounter Additional Health Concerns Assessment Noted Time PHQ-9 Depression Total Score: 18 024 10:06 AM EST documented as of this encounter Care Teams Online Marketing Manager Relationship Specialty Start Date End Date Saul Barbour MD [address] [place] [address] PCP - General Internal Medicine 10/27/19 Harshad Caring 08/13/23 documented as of this encounter
--- OUTSIDE RECORDS SUMMARY | 2024-08-22 10:54 | XMS_ITS | Encounter Summary ---
Author Organization [employer] Address [address] [facility] [address] 7[address] [place] [address] Care Team Providers Care Front Office Secretary Name Role Phone Saul Barbour MD Primary Care Prov ider Encounter Details Date Type Department Care Team ([facility] st Contact Info) Description 11/12/2023 Telephone [facility] MEDICINE [address] [place] [address] Saul Barbour MD [address] [place] [address] Social History Tobacco Use Types Packs/Day Years [...] * Telephone Encounter - Tarah Cox - 11/12/2023 12:49 PM EDT Tc from pt stating they received a missed call from PCP however residential mortgage underwriter does not see any notes, Please contact at [phone] documented in this encounter Plan of Treatment Not on file documented as of this encounter Visit Diagnoses Not on filedocumented in this encounter Additional Health Concerns Assessment Noted Time PHQ-9 Depression Total Score: 15 024 2:48 PM EDT documented as of this encounter Care Teams Front Office Secretary Relationship Specialty Start Date End Date Saul Barbour MD [address] [place] [address] PCP - General Internal Medicine 10/27/19 Harshad Ho 08/13/23 documented as of this encounter
--- OUTSIDE RECORDS SUMMARY | 2024-08-22 10:54 | XMS_ITS | Encounter Summary ---
Author Organization [employer] Address 75 [facility] 7t [place] [address] Care Team Providers Care Administrative Clerk Name Role Phone Saul Barbour MD Primary Care Prov ider Reason for Visit * Reason Onset Date Comments FYI 07/28/2023 Encounter Details Date Type Department Care Team ([facility] Contact Info) Description 07/28/2023 Telephone [facility] CHC MED & PEDS [address] [place] [address] Saul Barbour MD [address] [place] [address] FYI Social History Tobacco Use Types Packs/Day Years [...] encounter Miscellaneous Notes * Telephone Encounter - Morena Horne RN - 07/29/2023 2:01 PM EST TC attempted to number listed below for Christos x 3. Call did not go through and said it was an invalid number. TC placed to patient regarding message below. Patient states his fasting blood sugar readings have recently been in the 80s and that his diastolic BP this morning was 89. He is not certain of these readings. Patient reports he became dizzy and fell against the wall in the bathroom on 07/27/23. He slid down the wall and had a brief loss of consciousness. He came around and went back to bed. He then felt normal after resting and went back to the bathroom and lost consciousness again. He states that he bruised his face a bit and his body but didn't really hit his head. He states that he reported this to his [facility] nurse, Christos, and was not advised to seek evaluation or care in the ED. He states that he is a bit bruised up but otherwise has not experienced any more falls or dizziness since 07/27/23. He states that he has not eaten yet at all today because he doesn't feel like it, and he states that he was instructed by Christos to NOT take the following medications this morning: metoprolol, furosemide, amlodipine, metformin. He did not take those medications today. Televist available with PCP today at 3:15pm and patient agreeable to scheduling this visit. Scheduled with PCP for televisit in one hour. TC placed again to Harshad [place]. Asked for recent records and was told Christos is off today. [facility] LM to call us back with recent records. TC placed again to Harshad Ho and asked if I could be transferred to a nurse who is working today to review recent BP and blood glucose readings from patient. Was transferred to the head of Behavioral Health, who said notes from this week have not yet been entered but an entry from last week showed the following BP reading. 07/21/23: 106/67 Gave him the nurses' [facility] to [facility] notes and our call back number. Routing note to PCP so he is aware. Tc from christos with harshad ho calling to advise provider pt has been having low blood pressure and low sugars for the past week. Pt asl ohad a fall this morning. Pt is asymptomatic. Any questions, please contact christos at [phone] * Telephone Encounter - Deidra Simmons - 07/28/2023 10:14 AM EST Tc from christos with harshad ho calling to advise provider pt has been having low blood pressure and low sugars for the past week. Pt asl ohad a fall this morning. Pt is asymptomatic. Any questions, please contact christos at [phone] documented in this encounter Plan of Treatment Not on file documented as of this encounter Visit Diagnoses Not on filedocumented in this encounter Additional Health Concerns Assessment Noted Time PHQ-9 Depression Total Score: 18 024 10:06 AM EST documented as of this encounter Care Teams Administrative Clerk Relationship Specialty Start Date End Date Saul Barbour MD [address] [place] [phone] PCP - General Internal Medicine 10/27/19 Harshad Ho 08/13/23 documented as of this encounter
--- OUTSIDE RECORDS SUMMARY | 2024-08-22 10:54 | XMS_ITS | Encounter Summary ---
Author Organization [employer] Address 75 [facility] 7t [place] [address] Care Team Providers Care Automatic Lathe Operator Name Role Phone Saul Barbour MD Primary Care Prov ider Reason for Visit * Reason Onset Date Comments Med Refill 07/13/2022 Encounter Details Date Type Department Care Team ([facility] st Contact Info) Description 07/13/2022 Telephone [facility] MEDICINE [address] [place] [address] Saul Barbour MD 505 [place] [address] Med Refill Social History Tobacco Use Types Packs/Day Years Used Date Smoking Tobacco: Every Day Cigarettes Smokeless Tobacco: Never Alcohol Use Standard Drinks/Week [...] encounter Miscellaneous Notes * Telephone Encounter - Thomas Boothe - 07/13/2022 11:34 AM EST Tc from pt requesting med refill Gabapentin 600 mg documented in this encounter Plan of Treatment Not on file documented as of this encounter Visit Diagnoses Not on filedocumented in this encounter Additional Health Concerns Assessment Noted Time PHQ-9 Depression Total Score: 26 022 10:52 AM EST documented as of this encounter Care Teams Automatic Lathe Operator Relationship Specialty Start Date End Date Saul Barbour MD [address] [place] [phone] PCP - General Internal Medicine 10/27/19 Harshad Ho 08/13/23 documented as of this encounter
--- OUTSIDE RECORDS SUMMARY | 2024-08-22 10:54 | XMS_ITS | Encounter Summary ---
Author Organization [employer] Address [address] [place] [address] 7t [place] [address] Care Team Providers Care Cottrell Blower Name Role Phone Saul Barbour MD Primary Care Prov ider Encounter Details Date Type Department Care Team ([facility] Contact Info) Description 10/05/2022 Orders Only [facility] CHC MED & PEDS [address] [place], [place] [phone] Saul Barbour MD 505 [place] [address] Back problem (Primary Dx) Social History Tobacco Use Types Packs/Day Years [...] Procedure Name Priority Date/Time Associated Diagnosis Comments CDIFF GENE PCR Routine 04/07/2023 10:00 AM EDT Back problem GASTROINTESTINAL PANEL Routine 10:00 AM EDT Back problem OVA AND PARASITES, CONC AND PERM SMEAR Routine 04/07/2023 10:00 AM EDT Back problem GIARDIA AG, EIA, STOOL Routine 10:00 AM EDT Back problem HEPATITIS C ANTIBODY REFLEX Routine 01/21/2023 2:59 PM EDT Back problem documented in this encounter Results * Ova and Parasites,??Concentrate and Permanent Smear (04/07/2023 10:00 AM EDT) Ova and Parasite Trichrome SEE NOTE [facility] Comment: ??OVA AND PARASITES, CONC AND PERM SMEAR ??Micro Number: ?[id number] ??Test Status: ? Final ??Specimen Source: ?? Stool ??Specimen Quality: ??Adequate ??CONCENTRATION 1: ?? No ova or parasites seen ??TRICHROME 1: ? No ova or parasites seen ? Routine Ova and Parasite exam may not detect some ? parasites that occasionally cause diarrheal ? illness. Cryptosporidium Antigen and/or Cyclospora ? and Isospora Exam may be ordered to detect these ? parasites. One negative sample does not ? necessarily rule out the presence of a parasitic ? infection. ? For additional information, please refer to ? https://[employer]/faq/CUC741 ? (This link is being provided for informational/ ? educational purposes only.)THIS TEST WAS PERFORMED AT:[employer] [facility] [address] [place], [place] ??[id number] JUDSON,MD 04/07/2023 10:0 0 AM EDT 04/07/2023 5:28 PM EDT Daryn Crowder MD LAB MICROBIOLOGY - GENERAL ORDERABLES Final Result Performing Organization Address [facility] Co de Phone Number [facility] [address] [place] [phone] * Giardia Antigen, EIA, Stool (04/07/2023 10:00 AM EDT) Pathologist [facility] Giardia Ag Stool EIA SEE NOTE [facility] Comment:GIARDIA AG, EIA, STO OL Micro Number: [id number] Test Status: Final Specimen Source: Stool Specimen Quality: Adequate Giardia Result 1: Not Detected Reference Range: Not Detected NOTE: Due to intermittent shedding, one negative sample does not necessarily rule out the presence of a parasitic infection.THIS TEST WAS PERFORMED AT:[employer] [address] [id number] APPIAH MD 04/07/2023 10:0 0 AM EDT 04/07/2023 5:28 PM EDT us Daryn Crowder MD LAB BODY FLUIDS AND STOOLS ORDERABLES Final Result Performing Organization Address [facility] Co de Phone Number [facility] [address] [place] [phone] * Gastrointestinal panel (04/07/2023 10:00 AM EDT) Campylobacter Not Detected Not Detect. [facility] Plesiomonas shigelloides Not Detected Not Detect. [facility] Salmonella Not Detected Not Detect. [facility] Vibrio Not Detected Not Detect. [facility] Vibrio cholerae Not Detected Not Detect. [facility] YERSINIA ENTEROCOLITICA Not Detected Not Detect. [facility] Enteroaggregative E. coli (EAEC) Not Detected Not Detect. [facility] Enteropathogenic E. coli (EPEC) Not Detected Not Detect. [facility] Enterotoxigenic E. coli (ETEC) lt/st Not Detected Not Detect. [facility] Shiga-like toxin-producing E. coli (STEC) stx1/stx2 Not Detected Not Detect. [facility] E coli O157 Not applicable Not Detect. [facility] Comment:E. coli containing t he O157 antigen are a subset ofShiga-like toxin- producing E. coli (STEC). Shigella/Enteroinvasive E. coli (EIEC) Not Detected Not Detect. [facility] Cryptosporidium Not Detected Not Detect. [facility] Cyclospora cayetanensis Not Detected Not Detect. [facility] Entamoeba histolytica Not Detected Not Detect. [facility] Giardia lamblia Not Detected Not Detect. [facility] Adenovirus F 40/41 Not Detected Not Detect. [facility] Astrovirus Not Detected Not Detect. [facility] Norovirus GI/GII Not Detected Not Detect. [facility] Rotavirus A Not Detected Not Detect. [facility] Sapovirus Not Detected Not Detect. [facility] Comment: All results must be correlated with clinical findings.Negative results do not exclude the possibility ofgastrointestinal infection and should not be used as thesole basis for diagnosis, treatment, or other managementdecisions. Virus, bacteria, and parasite nucleic acid maypersist in vivo independently of organism viability.Additionally, some organisms may be carried symptomatically.Detection of organism targets does not imply that thecorresponding organisms are infectious or are the causativeagents for clinical symptoms. There is a risk of falsenegative values due to the presence of sequence variants inthe gene targets of the assay, amplification inhibitors inspecimens, or inadequate numbers of organisms foramplification.The identification of several diarrheagenic E. colipathotypes has historically relied upon phenotypiccharacteristics. This panel targets genetic determinantscharacteristic of most pathogenic strains, but may notdetect all strains having phenotypic characteristics of apathotype.The performance of this test has not been established formonitoring treatment of infection with any of the panelorganisms.This assay is performed by Multiplexed PCR, utilizing [employer]. 04/07/2023 10:0 0 AM EDT 04/07/2023 5:28 PM EDT Daryn Crowder MD LAB MICROBIOLOGY - GENERAL ORDERABLES Final Result Performing Organization Address [facility] Co de Phone Number [facility] [address] [place] [phone] * CDiff Gene PCR (04/07/2023 10:00 AM EDT) CDiff Gene PCR NEGATIVE Negative [facility] Comment:If C. difficile stro ngly suspected despite one negativetest, a second test may be sent vs. empiric treatment forC. difficile infection. 04/07/2023 10:0 0 AM EDT 04/07/2023 5:26 PM EDT us Daryn Crowder MD LAB BODY FLUIDS AND STOOLS ORDERABLES Final Result Performing Organization Address [facility] Co de Phone Number [facility] [address] [place] [phone] * Hepatitis C Antibody Reflex (01/21/2023 2:59 PM EDT) Hepatitis C Antibody Nonreactive Nonreactive [facility] Comment:Antibodies to HCV no t detected; does not exclude early acuteHCV infection. 01/21/2023 2:59 PM EDT 01/21/2023 5:19 PM EDT Saul Spicer MD LAB BLOOD ORDERABL ES Final Result [facility] [address] [place] [phone] documented in this encounter Visit Diagnoses Diagnosis Back problem- Primary Other unspecified back disorder documented in this encounter Additional Health Concerns Assessment Noted Time PHQ-9 Depression Total Score: 26 05/22/ 022 10:52 AM EST documented as of this encounter Care Teams Cottrell Blower Relationship Specialty Start Date End Date Saul Barbour MD [address] [place] [phone] PCP - General Internal Medicine 10/27/19 Harshad Ho 08/13/23 documented as of this encounter
--- OUTSIDE RECORDS SUMMARY | 2024-08-22 10:54 | XMS_ITS | Encounter Summary ---
Author Organization [employer] Address 75 [facility] 7t [place] [address] Care Team Providers Care Recreation Facilities Supervisor Name Role Phone Saul Barbour MD Primary Care Prov ider Reason for Visit * Reason Comments Med Refill Encounter Details Date Type Department Care Team ([facility] st Contact Info) Description 12/13/2023 Refill [facility] MEDICINE [address] [place] [address] Daphne Owens MD [address] [place] [address] Social History Tobacco Use Types Packs/Day Years [...] documented as of this encounter Care Teams Recreation Facilities Supervisor Relationship Specialty Start Date End Date Saul Barbour MD [address] [place] [phone] PCP - General Internal Medicine 10/27/19 Harshad Ho 08/13/23 documented as of this encounter
--- OUTSIDE RECORDS SUMMARY | 2024-08-22 10:54 | XMS_ITS | Encounter Summary ---
Author Organization [employer] Address [address] [facility] [address] [place] [address] Care Team Providers Care Group Cio Name Role Phone Saul Barbour MD Primary Care Prov ider Encounter Details Date Type Department Care Team ([facility] st Contact Info) Description 11/12/2023 Telephone [facility] MEDICINE [address] [place] [address] Saul Barbour MD [address] [place] [address] Social History Tobacco Use Types Packs/Day Years [...] documented as of this encounter Care Teams Group Cio Relationship Specialty Start Date End Date Saul Barbour MD [address] [place] [phone] PCP - General Internal Medicine 10/27/19 Harshad Ho 08/13/23 documented as of this encounter
--- OUTSIDE RECORDS SUMMARY | 2024-08-22 10:54 | XMS_ITS | Encounter Summary ---
Author Organization [employer] Address 75 [facility] 7t [place] [address] Care Team Providers Care Garment Form Assembler Name Role Phone Saul Barbour MD Primary Care Prov ider Reason for Visit * Reason Comments Med Refill Encounter Details Date Type Department Care Team ([facility] st Contact Info) Description 11/18/2023 Refill [facility] MEDICINE [address] [place] [address] Saul Barbour MD [address] [place] [address] Social History Tobacco Use Types Packs/Day Years [...] documented as of this encounter Care Teams Garment Form Assembler Relationship Specialty Start Date End Date Saul Barbour MD [address] [place] [phone] PCP - General Internal Medicine 10/27/19 Harshad Ho 08/13/23 documented as of this encounter
--- OUTSIDE RECORDS SUMMARY | 2024-08-22 10:55 | XMS_ITS | Encounter Summary ---
Author Organization [employer] Address [address] [facility] 7t [place] [address] Care Team Providers Care Electronic Sales And Service Technician Name Role Phone Saul Barbour MD Primary Care Prov ider Encounter Details Date Type Department Care Team ([facility] Contact Info) Description 12/23/2023 Orders Only [facility] CHC MED & PEDS [address] [place], [place] [phone] Daryn Crowder MD 505 [place] [address] Right foot pain (Primary Dx) Social History Tobacco Use Types [...] as of this encounter Plan of Treatment Scheduled Orders Name Type Priority Associated Diagnoses Orde r Schedule XR Ankle 2 Views Right Imaging Routine Right foot pain Expected: 12/23/2023, Expires: 12/22/2024 documented as of this encounter Procedures Procedure Name Priority Date/Time Associated Diagnosis Comments XR FOOT 1-2 VIEWS RIGHT Routine 12/24/2023 Right foot pain documented in this encounter Results * XR Foot 1-2 Views Right (12/24/2023) Anatomical Region Laterality Modality Lower Extremities, Foot Right Radiogra phic Imaging Daryn Crowder MD IMG XR PROCEDURES Final Res ult documented in this encounter Visit Diagnoses Diagnosis Right foot pain- Primary Pain in soft tissues of limb documented in this encounter Additional Health Concerns Assessment Noted Time PHQ-9 Depression Total Score: 15 024 2:48 PM EDT documented as of this encounter Care Teams Electronic Sales And Service Technician Relationship Specialty Start Date End Date Saul Barbour MD [address] [place] [phone] PCP - General Internal Medicine 10/27/19 Harshad Ho 08/13/23 documented as of this encounter
--- OUTSIDE RECORDS SUMMARY | 2024-08-22 10:55 | XMS_ITS | Encounter Summary ---
Author Organization [employer] Address 75 [facility] 7t [place] [address] Care Team Providers Care Claim Benefit Specialist Name Role Phone Saul Barbour MD Primary Care Prov ider Reason for Visit * Reason Comments Med Change Request Encounter Details Date Type Department Care Team ([facility] Contact Info) Description 11/10/2022 Refill [facility] CHC MED & PEDS [address] [place] [address] Daryn Crowder MD [address] [place] [address] Chronic midline low back pain without sciatica Social History Tobacco Use Types Packs/Day Years [...] suspected to have Coronavirus/COVID-19? No / Unsure 11/10/2022 10:08 AM EDT documented as of this encounter Plan of Treatment Not on file documented as of this encounter Visit Diagnoses Diagnosis Chronic midline low back pain without sciatica documented in this encounter Additional Health Concerns Assessment Noted Time PHQ-9 Depression Total Score: 26 022 10:52 AM EST documented as of this encounter Care Teams Claim Benefit Specialist Relationship Specialty Start Date End Date Saul Barbour MD [address] [place] [phone] PCP - General Internal Medicine 10/27/19 Harshad Ho 08/13/23 documented as of this encounter
--- OUTSIDE RECORDS SUMMARY | 2024-08-22 10:55 | XMS_ITS | Encounter Summary ---
Author Organization [employer] Address 75 [facility] 7t [place] [address] Care Team Providers Care Automobile Assembler Name Role Phone Saul Barbour MD Primary Care Prov ider Reason for Visit * Reason Onset Date Comments Med Refill 06/23/2023 Encounter Details Date Type Department Care Team ([facility] st Contact Info) Description 06/23/2023 Telephone [facility] CHC MED & PEDS [address] [place] [address] Saul Barbour MD [address] [place] [address] Med Refill Social History Tobacco Use Types [...] encounter Miscellaneous Notes * Telephone Encounter - Mikelpamela Baron - 06/23/2023 9:46 AM EST TC from [facility] Visiting nurse requesting medication refill. Medications needing refill : metoprolol tartrate (Lopressor) 25 MG tablet To be sent to: [facility]/pharmacy #[id number] documented in this encounter Plan of Treatment Not on file documented as of this encounter Visit Diagnoses Not on filedocumented in this encounter Additional Health Concerns Assessment Noted Time PHQ-9 Depression Total Score: 18 024 10:06 AM EST documented as of this encounter Care Teams Automobile Assembler Relationship Specialty Start Date End Date Saul Barbour MD [address] [place] [phone] PCP - General Internal Medicine 10/27/19 Harshad Ho 08/13/23 documented as of this encounter
--- OUTSIDE RECORDS SUMMARY | 2024-08-22 10:55 | XMS_ITS | Encounter Summary ---
Author Organization [employer] Address 75 [facility] 7t [place] [address] Care Team Providers Care Client Finance Analyst Name Role Phone Saul Barbour MD Primary Care Prov ider Reason for Visit * Reason Onset Date Comments Medication Question 06/23/2023 Encounter Details Date Type Department Care Team ([facility] Contact Info) Description 06/23/2023 Telephone [facility] CHC MED & PEDS [address] [place] [address] Saul Barbour MD [address] [place] [address] Medication Question Social History Tobacco Use Types [...] encounter Miscellaneous Notes * Telephone Encounter - Trish Gonzalez RN - 06/30/2023 12:47 PM EST Returned call to Michelle regarding message below. Michelle informed of need to contact pt emery grinder. Information provided to Michelle to contact their office. * Telephone Encounter - Trish Gonzalez RN - 06/23/2023 3:18 PM EST TC X1 to MADDIE Martinez regarding message below. Last time Furosemide was prescribed was on 12/2021. Pt should not be on med anymore. LVM to return call to nurses. * Telephone Encounter - Mikel Baron - 06/23/2023 9:52 AM EST Tc from [facility] visiting nurse requesting clarification on furosemide (Lasix) 40 MG tablet. Karla unsure if pt should be taking medication. You can contact Rita at [phone]. documented in this encounter Plan of Treatment Not on file documented as of this encounter Visit Diagnoses Not on filedocumented in this encounter Additional Health Concerns Assessment Noted Time PHQ-9 Depression Total Score: 18 024 10:06 AM EST documented as of this encounter Care Teams Client Finance Analyst Relationship Specialty Start Date End Date Saul Barbour MD [address] [place] [phone] PCP - General Internal Medicine 10/27/19 Harshad Ho 08/13/23 documented as of this encounter
--- OUTSIDE RECORDS SUMMARY | 2024-08-22 10:55 | XMS_ITS | Encounter Summary ---
Author Organization [employer] Address [address] [place] [address] Care Team Providers Care Electrifier Operator Name Role Phone Saul Barbour MD Primary Care Prov ider Reason for Visit * Reason Onset Date Comments Nurse Triage 07/30/2023 Encounter Details Date Type Department Care Team ([facility] st Contact Info) Description 07/30/2023 Telephone [facility] [address] [place] [address] Saul Barbour MD [address] [place] [address] Nurse Triage Social History Tobacco Use Types Packs/Day Years [...] encounter Miscellaneous Notes * Telephone Encounter - Janene Uriostegui RN - 07/30/2023 3:52 PM EST Called pt. He states he has been having diarrhea on and off x months. Pt states that this is a chronic problem. Pt. Has had testing done in past and also has a referral to gastro but, appt. Is not until December 2023. Pt. Requesting Loperamide. Protocol Used: Diarrhea (Adult) Protocol-Based Disposition: Televiait scheduled for 07/31/23 at 1220am. Positive Triage Question: * Diarrhea is a chronic symptom (recurrent or ongoing AND lasting > 4 weeks) * All higher-acuity triage questions were negative Care Advice Discussed: * Reassurance and Education - Diarrhea * Fluid Therapy During Severe Diarrhea * Food and Nutrition During Severe Diarrhea * Wash Your Hands * Expected Course * Reasons To Call Back * Telephone Encounter - Teodora Sarmiento - 07/30/2023 3:06 PM EST Symptom: Diarrhea Outcome: Schedule an appointment to be seen within 24 hours Reason: Caller denied all higher acuity questions The caller accepted this outcome Please contact pt @ [phone] documented in this encounter Plan of Treatment Not on file documented as of this encounter Visit Diagnoses Diagnosis Diarrhea, unspecified type documented in this encounter Additional Health Concerns Assessment Noted Time PHQ-9 Depression Total Score: 18 024 10:06 AM EST documented as of this encounter Care Teams Electrifier Operator Relationship Specialty Start Date End Date Saul Barbour MD [address] [place] [address] PCP - General Internal Medicine 10/27/19 Harshad Ho 08/13/23 documented as of this encounter
--- OUTSIDE RECORDS SUMMARY | 2024-08-22 10:55 | XMS_ITS | Clinical Summary ---
Author Organization [employer] Address [address] [place] [address] [address] [place] [address] Care Team Providers Care Formula Checker Name Role Phone Saul Barbour MD Primary Care Prov ider Allergies No known active allergies Medications * This document contains information received from the source organization and may not represent a complete record from that organization. albuterol 108 (90 Base) MCG/ACT inhaler Inhale 2 puffs every 4 (four) hours if needed. Active Fluticasone-Umecl idin-Vilant (Trelegy Ellipta) 200-62.5-25 MCG/ACT aerosol powder Inhale 1 puff in the morning. Active folic acid (Folvite) 1 MG tablet Take 1 tablet by mouth in the morning. Active LORazepam (Ativan) 1 MG tablet Take 1 tablet by mouth every 72 hours. 1 tab every 3 days as needed Active naltrexone (Depade) 50 MG tablet Take 1 tablet by mouth in the morning. Active Testosterone 20.25 MG/ACT (1.62%) gel Place 3 Pump on the skin in the morning. Active pyridoxine (Vitamin B-6) 50 MG tablet TAKE 1 TABLET BY MOUTH EVERY DAY Active Azelastine HCl 137 MCG/SPRAY solution USE 1 SPRAY INTRANASALLY 2 TIMES A DAY Active buPROPion XL (Wellbutrin XL) 150 MG 24 hr tablet TAKE 1 TABLET WITH 350MG TO A TOTAL OF 450MG IN THE MORNING Active ipratropium-albut shane (Duo-Neb) 0.5-2.5 mg/3 mL nebulizer solution INHALE 1 VIAL VIA NEBULIZER EVERY 4 TO 6 HOURS NEEDED FOR WHEEZING Active QUEtiapine (SEROquel) 100 MG tablet Take 1 tablet by mouth at night Active Sodium Fluoride (PreviDent 5000 Booster Plus) 1.1 % pasteIndications: Dental cavity Please smear pea-sized amount on tooth brush at night and brush for 2 mins. Do not rinse after brushing . Use regular toothpaste in the morning 100 mL 2 023 Active Additional Information Patient not taking.Reported on 02/04/2024 thiamine (Vitamin B-1) 100 MG tablet TAKE 1 TABLET BY MOUTH TWO TIMES A DAY Active metoprolol tartrate (Lopressor) 25 MG tablet TAKE 1 TABLET BY MOUTH TWICE A DAY 023 Active Multiple Vitamin (Daily-Sadi) tablet Take 1 tablet by mouth in the morning. 90 tablet 1 023 Active tadalafil (Cialis) 10 MG tablet TAKE ONE TABLET BY MOUTH DAILY FOR sexual activity, DAILY medication 023 Active terazosin (Hytrin) 5 MG capsule TAKE 1 CAPSULE BY MOUTH AT BEDTIME 023 Active traZODone (Desyrel) 50 MG tablet TAKE 1 TABLET BY MOUTH DAILY AT BEDTIME NEEDED FOR INSOMNIA 023 Active Melatonin 10 MG capsule Take by mouth. Take 1 capsule by mouth at bedtime as needed Active FLUoxetine (PROzac) 20 MG capsuleIndication s:Mood disorder (CMS/HCC) Take 3 capsules (60 mg) by mouth in the morning. Take 1 capsule by mouth daily in the morning with 20 mg capsule for a total dose of 60 mg 90 capsule 3 023 Active Additional Information Patient not taking.Reported on 02/04/2024 gabapentin (Neurontin) 600 MG tabletIndications :Type 2 diabetes mellitus with stage 3b chronic kidney disease, with long-term current use of insulin (CMS/HCC) Take 1 tablet (600 mg) by mouth 2 times daily. 180 tablet 3 Active ketotifen (Zaditor) 0.025 % ophthalmic solution 1 drop. Into affected eye twice a day Active famotidine (Pepcid) 20 MG tablet Take 20 mg by mouth in the morning. 01/04/2 024 Active FLUoxetine (PROzac) 40 MG capsule Take 40 mg by mouth in the morning. Take 1 capsule by mouth daily in the morning with 20 mg capsule for a total dose of 60 mg Active amLODIPine (Norvasc) 10 MG tabletIndications :Essential hypertension Take 0.5 tablets (5 mg) by mouth in the morning. 90 tablet 1 Active Blood Glucose Monitoring Suppl (FreeStyle Lite) w/Device kit 1 kit in the morning. 1 kit Active D3-1000 25 MCG (1000 UT) tablet TAKE 1 TABLET BY MOUTH EVERY DAY 90 tablet 5 Active ammonium lactate (Lac-Hydrin) 12 % lotion Apply to soles of feet daily and wear socks to bed at night Active hydrOXYzine HCl (Atarax) 25 MG tablet Take 25 mg by mouth in the morning. Active Ronda-Mucil 51.7 % powder MIX 1 ROUNDED TEASPOONFUL IN 8 OUNCES OF COOL LIQUID AND DRINK DAILY NEEDED FOR STOOL BULKING Active psyllium (Metamucil Smooth Texture) 58.6 % powder Take 5.12 g (3 g of fiber) by mouth 2 times daily. 283 g 024 2024 Active glucose blood (FREESTYLE LITE) test stripIndications: Type 2 diabetes mellitus with stage 3b chronic kidney disease, without long-term current use of insulin (CMS/[facility]) 1 each by Other route every 8 (eight) hours. 3x daily 100 each Active Alcohol Swabs (Alcohol Prep) 70 % padsIndications:T ype 2 diabetes mellitus with stage 3b chronic kidney disease, with long-term current use of insulin (CMS/HCC) PLACE 1 EACH ON THE SKIN 3 TIMES DAILY. 100 each Active FreeStyle lancetsIndication s:Type 2 diabetes mellitus with stage 3a chronic kidney disease, without long-term current use of insulin (CMS/HCC) USE TO TEST BLOOD SUGAR ONCE A DAY 100 each 1 024 Active ARIPiprazole (Abilify) 2.5 MG split tablet 1 tablet DAILY (route: oral) Active Alcohol Swabs (Alcohol Prep) pads Per instructions 3 TIMES DAILY (route: topical) 024 Active tiZANidine (Zanaflex) 2 MG capsule 1 tablet EVERY 8 HOURS (route: oral) 024 Active Sod Fluoride-Potassiu m Nitrate 1.1-5 % pasteIndications: Dental caries [place] teeth for 2 minutes, morning and night. Spit, do not rinse. Do not eat or drink anything for 30 minutes following brushing. 112 g 3 024 Active Creon 59170-190193 units capsule delayed-release particles capsule TAKE 1 CAPSULE BY MOUTH 3 TIMES A DAY WITH BREAKFAST,LUNCH AND EVENING MEAL 100 capsule 3 024 Active ondansetron ODT (Zofran-ODT) 4 MG disintegrating tablet TAKE 1 TABLET (4 MG) BY MOUTH EVERY 8 HOURS NEEDED FOR NAUSEA 20 tablet 1 024 Active atorvastatin (Lipitor) 80 MG tabletIndications :Mixed hyperlipidemia TAKE 1 TABLET BY MOUTH EVERY MORNING 90 tablet 3 024 Active dicyclomine (Bentyl) 10 MG capsule TAKE 1 CAPSULE BY MOUTH FOUR TIMES A DAY 360 capsule 1 025 Active Aspirin Low Dose 81 MG EC tabletIndications :Essential hypertension TAKE 1 TABLET (81 MG) BY MOUTH IN THE MORNING 90 tablet 3 025 Active loperamide (Imodium) 2 MG capsuleIndication s:Diarrhea, unspecified type TAKE 1 CAPSULE (2 MG) BY MOUTH IF NEEDED IN THE MORNING, AT NOON, AND AT BEDTIME FOR DIARRHEA. 24 capsule 025 Active acetaminophen (Tylenol 8 Hour) 650 MG ER tablet TAKE 1 TABLET BY MOUTH EVERY 8 HOURS 90 tablet 1 025 Active furosemide (Lasix) 20 MG tablet TAKE 1 TABLET BY MOUTH EVERY DAY IN THE MORNING 90 tablet 1 025 Active furosemide (Lasix) 20 MG tablet TAKE 1 TABLET BY MOUTH EVERY DAY IN THE MORNING 90 tablet 1 024 2024 Discontinued acetaminophen (Tylenol 8 Hour) 650 MG ER tablet TAKE 1 TABLET BY MOUTH EVERY 8 HOURS 90 tablet 1 024 2024 Discontinued Active Problems Problem Noted Date Diagnosed Date Abnormal EKG 03/27/2024 Acid reflux 03/27/2024 Acute hypokalemia 03/27/2024 Alcohol withdrawal seizure 03/27/2024 Allergic rhinitis 03/27/2024 Autonomic neuropathy due to type 2 diabetes brendan itus 03/27/2024 Bloating 03/27/2024 Chronic back pain 03/27/2024 Encounter for screening colonoscopy 03/27/2024 Environmental allergies 03/27/2024 Erectile dysfunction 03/27/2024 Helicobacter pylori infection 03/27/2024 Intractable nausea and vomiting 03/27/2024 Hypogonadism in male 03/27/2024 Irregular heart beat 03/27/2024 Laceration of left arm with complication 024 Leukocytosis 03/27/2024 Major depressive disorder, r ecurrent severe without psychotic features 03/27/2024 Nicotine dependence 03/27/[address]-T wave electrocardiographic govea es 03/27/2024 Obesity 03/27/2024 VIRAJ on CPAP 03/27/2024 Overactive bladder 03/27/2024 Paroxysmal A-fib 03/27/2024 Personal history of other specified conditions 1 PVC (premature ventricular contraction) 03/27/20 Right lower quadrant pain 03/27/2024 SOB (shortness of breath) 03/27/2024 Type 2 diabetes mellitus with unspecified compli cations 03/27/2024 Alcohol use disorder 03/27/2024 Benign localized prostatic h yperplasia with lower urinary tract symptoms (LUTS) 03/27/2024 Obsessive-compulsive disorder, unspecified 03/27 Dental calculus 02/04/2024 Dental plaque 02/04/2024 Anemia in chronic kidney disease 01/24/2024 Vitamin D deficiency 01/24/2024 Chronic diastolic heart failure 08/27/2023 COPD (chronic obstructive pulmonary disease) Chronic diarrhea 06/15/2023 Assessment & Plan (01/20/2024 9:30 AM EDT): Improved, he went to er, no fever/chills reported, no bleeding, he saw GI and creon was increased but patient was takign old dose, discussed with patient proper medication management. Assessment & Plan (06/15/2023 12:26 PM EST): Will refer to GI for evaluation, also due for screening colonocopy Left ear impacted cerumen 04/19/2023 Assessment & Plan (04/19/2023 8:28 AM EST): Will try to complete irrigation with nurses for ear wax removal Impacted cerumen of left ear 01/13/2023 Seizure 01/07/2023 CORRINE (acute kidney injury) 01/07/2023 Ground glass opacity present on imaging of lung 11/30/2022 Assessment & Plan (11/30/2022 3:05 PM EDT): Will repeat ct scan, patient had evidence of aspiration pneumonia. Back problem 05/25/2022 Assessment & Plan (04/19/2023 8:27 AM EST): Chronic back pain, told him in his case due to his renal function it is not recommended to increase gabapentin, told to continue home remedies (rest, Ice, avoid heavy lifting). Type 2 diabetes mellitus wit h diabetic chronic kidney disease 04/21/2022 Assessment & Plan (11/09/2023 10:29 AM EDT): Off medications, continue low carb/no sugar diet, exercise as tolerated, Assessment & Plan (08/04/2023 8:38 AM EST): Patient was on SGLT2 mostly for renal protection, but her was found with lactic acidosis on recent hospitalization and was told to discontinue jardiance. He was started on metformin, his last A1c from 03/2023 was 5.6%, he refers is not eating, although no reported hypoglycemia episode he does report episode of falling at home. Will discontinue metformin, will follow up as schedule, discussed importance of healthy meals Assessment & Plan (06/15/2023 12:25 PM EST): Last A1c from 03/29 were <7.0%, continue jardiance for renal protection, keep low carb/no sodium diet, follow up in 3 months Foot exam done today, found with tinea, will refer to podiatry for nail/foot care Assessment & Plan (04/19/2023 8:29 AM EST): New labs will be ordered for guidance of therapy, no reported episode og hypoglycemia Assessment & Plan (11/19/2022 12:27 PM EDT): Controlled, continue januvia, no changes will be made, keep off energy/soda drinks. 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 Benign prostatic hyperplasia 07/31/2021 CKD stage 3 secondary to diabetes 07/31/2021 Stage 3b chronic kidney disease 07/31/2021 COPD with asthma 09/27/2018 Assessment & Plan (11/30/2022 3:05 PM EDT): Patient lost follow up with pneumologist, will place new referal Assessment & Plan (11/19/2022 12:29 PM EDT): Followed by pneumology, symptoms have remained stable Alcoholism 07/26/2018 Essential hypertension 07/26/2018 Assessment & Plan (11/09/2023 10:22 AM EDT): Controlled, continue amlodipine 5mg and furosemide as prescribed, follow up with nephrology and cardiology Assessment & Plan (08/04/2023 8:35 AM EST): Told patient to decrease amlodipine to 5mg, and furosemide to 20mg, continue with metoprolol, he refers not eating, only eating crackers, reviewed importance of proper nutrition Assessment & Plan (06/15/2023 12:23 PM EST): Controlled, reinforced low sodium diet and exercise as tolerated, follow up in 3 months, new lab ordered Assessment & Plan (09/03/2022 11:55 AM EDT): Controlled, no reported episode of hypotension or bp above 140/90, reinforced low sodium diet and exercise as tolerated Assessment & Plan (05/22/2022 1:14 PM EST): Improved, reinforced low sodium diet and exercise as tolerated, no changes will be made, follow up in 3 momht Mixed hyperlipidemia 07/26/2018 Assessment & Plan (06/15/2023 12:27 PM EST): Will send new labs for guidance of therapy Assessment & Plan (09/03/2022 11:57 AM EDT): On statin therapy, will order new labs on 3 moths for guidance of therapy Mood disorder 07/26/2018 Smoker 07/26/2018 Raised prostate specific antigen 03/15/2018 High prostate specific antigen (PSA) 03/15/2018 Encounters Date Type Department Care Team Description 07/29/2024 Refill [facility] [address] [place] [address] Saul Barbour MD 07/23/2024 Refill [facility] [address] [place] [address] Saul Barbour MD 07/20/2024 Refill [facility] [address] [place] [address] Saul Barbour MD Essential hypertension; Diarrhea, unspecified type 07/16/2024 Refill [facility] [address] [place] [address] Saul Barbour MD 06/22/2024 Refill [facility] [address] [place] [address] Saul Barbour MD 06/09/2024 Orders Only [facility] [address] [place] [address] Shaka Velazquez DMD 05/26/2024 Orders Only [facility] External Provider, [facility] from Last 3 Months Immunizations Name Administration Dates Next Due Hep B, adult 06/10/2018,01/24/2018,11/18/2016 Influenza Injectable Quadriv alant Preservative Free IIV4 MDCK 05/07/2021 Influenza injectable quadriv alent preservative free 03/05/2022,02/14/2019,02/12/2018,01/29 Influenza, IIV3, injectable 05/07/2021,0 02/14/2019,02/12/2018,01/28 Influenza, seasonal, injecta ble, preservative free 01/28/2017 Influenza, trivalent, adjuvanted 01/28/2017 Moderna Covid-19 Vaccine 12+ 05/26/2021,10/24/19 21,09/25/2020 Pneumococcal Conjugate PCV 20 12/26/2022 Pneumococcal Polysaccharide PPSV23 03/24/2015 Tdap 02/17/2018,02/03/2016 Zoster, Recombinant 05/07/2021,04/19/2020,2018 Social History Tobacco Use Types Packs/Day Years Used Date Smoking Tobacco: Every Day Cigarettes Passive Smoke Exposure: Never Smokeless Tobacco: Never Tobacco Cessation:Ready to Q uit: Not Asked; Counseling Given: Not Answered Alcohol Use Standard Drinks/Week Comments Never 0 [...] Orientation Straight 04/06/2022 10 :30 AM EDT Last Filed Vital Signs Vital Sign Reading Time Taken Comments Blood Pressure 134/72 03/27/2024 9:44 AM EDT Pulse 60 02/04/2024 9:19 AM EDT Temperature 36.6 ??C (97.8 ??F) 12/17/2023 2:36 PM ED T Respiratory Rate 16 12/17/2023 2:36 PM EDT Oxygen Saturation 97% 11/09/2023 8:46 AM EDT Inhaled Oxygen Concentration - - Weight 72.1 kg (159 lb) 12/17/2023 2:36 PM EDT Height 175.3 cm (5' 9 ) 12/17/2023 2:36 PM EDT Body Mass Index 23.48 12/17/2023 2:36 PM EDT Plan of Treatment Health Maintenance Due Date Last Done Comments CT Colonography 1961 Dental X-Ray: Full Mouth 1961 FIT DNA/Cologuard 1961 FIT 1961 FOBT 1960 HIV Screening 1960 Sigmoidoscopy 1961 Eye Exam 1971 Alcohol/Substance Use Screening 1973 RSV Patients and Patients Aged 60 years or older (1 - Risk 60-74 years 1-dose series) 2021 Lipid Panel 02/17/2023 02/17/2022, 03/3 , 05/29/2021 Depression Monitoring (PHQ-9) 02/19/2024 08/19/2023, 08/19/2023 Diabetes: Foot Exam 06/15/2024 06/15/2023, 06/15/2023, 06/15/2023, Additional history exists Dental Oral Exam 08/05/2024 02/04/2024, 06/23/2022 Dental Prophylaxis 08/05/2024 02/04/2024, 07/16/2022 Depression Screening 08/18/2024 08/19/2023, 08/19/19 Diabetes: Hemoglobin A1C 10/30/2024 024, 09/15/2023, 03/09/2023, Additional history exists SDOH Screening 11/01/2024 11/02/2023 Dental X-Ray: Bitewings 02/04/2025 02/04/2024, 06/23 Tobacco Screening 03/27/2025 03/27/2024 Colonoscopy 11/06/2031 11/05/2021, 05/04/2011 Colorectal Cancer Screening 11/06/2031 DTaP/Tdap/Td Vaccines (4 - Td or Tdap) 01/30/2033 01/30/2023, 02/17/2018, 02/03/2016 Hepatitis B Vaccines Completed 06/10/2018, 01/24/2018, 11/18/2016 Zoster Vaccines Completed 05/07/2021, 04/07, 07/13/2018 Pneumococcal Vaccine: 50+ Years Completed 12/26/2022, 03/24/2015 Hepatitis C Screening Completed 01/21/2023 COVID-19 Vaccine Completed 02/08/2024, , 04/26/2022, Additional [...] patient's age to complete this topic Meningococcal Vaccine Aged Out No marshall prasad eligible based on patient's age to complete this topic RSV under 20 months Aged Out No longe r eligible based on patient's age to complete this topic Rotavirus Vaccines Aged Out No longer eligible based on patient's age to complete this topic Procedures Procedure Name Priority Date/Time Associated Diagnosis Comments LDCT LUNG SCREENING Routine 05/26/2024 1 0:01 AM EST HEMOGLOBIN A1C Routine 05/02/2024 11:16 AM EST PROPHYLAXIS - ADULT Routine 02/04/2024 9 :30 AM EDT Dental calculus Dental plaque Dental caries BITEWINGS - 4 RADIOGRAPHIC IMAGES Routine 02/04/2024 9:30 AM EDT Dental calculus Dental plaque Dental caries PERIODIC ORAL EVALUATION - ESTABLISHED PATIENT Routine 02/04/2024 9:30 AM EDT Dental calculus Dental plaque Dental caries HEPATITIS C ANTIBODY REFLEX Routine 01/21/2023 2:59 PM EDT Back problem LIPID PANEL, STANDARD Routine 02/17/2022 11:32 AM EDT HM COLONOSCOPY Routine 11/05/2021 from Last 3 Months or Most Recently Relevant to Health Maintenance Results * CT Lung Screening Low dose (05/26/2024 10:01 AM EST) Anatomical Region Laterality Modality Lung Computed Tomogra phy 05/26/2024 10:0 1 AM EST Narrative 07/05/2024 11:04 AM EST ? [facility] ?[address] ?[place] [address] ? CT Scan Report ? Signed ? Patient: Po Bower ?MR#: [id number] ?? [id number] ? : 1960 ?Acct:[id number] ? Age/Sex: 64 / M ?ADM Date: 05/26/24 ? Loc: HO.CT ? Attending Dr: Abby Sanchez PA-C ? Ordering Physician: Abby Sanchez PA-C ?? Date of Service: 05/26/24 ?? Procedure(s): CT lung screening ?? Accession Number(s): [id number] ? cc: Saul Barbour MD; Abby Sanchez PA-C ? Report Number: ?? [id number]: Total DLP = ?? 55.00 mGy-cm ?? EXAMINATION: ??CT LUNG SCREENING ? HISTORY: Smoking history ? TECHNIQUE: Low dose axial images were obtained from the sternal notch ?? to upper abdomen without IV contrast per standard departmental ?? protocol. ??Sagittal and coronal reformatted images were also obtained ?? and reviewed. ??One or more of the following techniques was used for ?? dose reduction: Automated exposure control, adjustment of the mA and/or ?? kV according to patient size, use of iterative reconstruction technique. ? DLP: 55 mGy-cm ? COMPARISON: ??Comparison is made with the prior examination dated ?? 08/03/2017. ? FINDINGS: ? Lung nodules: There are scattered punctate calcified granulomas ?? bilaterally including in the right upper lobe (series 6, image 264) and ?? in the left upper lobe (series 6, images 57 and 149. There is a 3 mm ?? calcified granuloma in the left lower lobe (series 6, image 369). No ?? suspicious pulmonary nodules are identified. ? Emphysema: none ? Coronary Calcification: ??severe ? Aortic Arch Calcification: ??mild ? Potentially Significant Incidentals : none ? Additional Chest Findings: There is no pleural or pericardial effusion. ?? No mediastinal or axillary lymphadenopathy is identified. A spinal ?? stimulator is noted. ? Visualized upper abdomen: The visualized portions of the liver, spleen, ?? and adrenals have an unremarkable unenhanced appearance. There is a ?? probable small hiatal hernia. ? CT/CT lung screening ?? IMPRESSION: ?? No suspicious pulmonary nodules are identified. ? LUNG-RADS ASSESSMENT: ?? Lung-RADS 2: Benign ? MANAGEMENT: ?? Continue annual screening with LDCT in 12 months ? Category S: N/A ? Electronically signed by: ??Louis Maldonado MD ??07/05/2024 11:02 AM EST ?? RP ? Dictated By: ?Louis Maldonado MD ? Signed By: ?<Electronically signed by Louis Maldonado MD in OV> ?07/05/24 1102 ? DD/ 1001 ? TD/TT: 05/26/24 1010 ? Abrasive Mixer Helper: ? Procedure Note Jimena, Image - 07/05/[address] [address] [address] Scan Report Signed Patient: Po Bower PMR#: [id number] : 1960cct:[id number] Age/Sex: 64 / MADM Date: 05/26/24 Loc: HO.CT Attending Dr: Abby Sanchez PA-C Ordering Physician: Abby Sanchez PA-C Date of Service: 05/26/24 Procedure(s): CT lung screening Accession Number(s): [id number] cc: Saul Barbour MD; Abby Sanchez PA-C Report Number: [id number]: Total DLP = 55.00 mGy-cm EXAMINATION: CT LUNG SCREENING HISTORY: Smoking history TECHNIQUE: Low dose axial images were obtained from the sternal notch to upper abdomen without IV contrast per standard departmental protocol. Sagittal and coronal reformatted images were also obtained and reviewed. One or more of the following techniques was used for dose reduction: Automated exposure control, adjustment of the mA and/or kV according to patient size, use of iterative reconstruction technique. DLP: 55 mGy-cm COMPARISON: Comparison is made with the prior examination dated 08/03/2017. FINDINGS: Lung nodules: There are scattered punctate calcified granulomas bilaterally including in the right upper lobe (series 6, image 264) and in the left upper lobe (series 6, images 57 and 149. There is a 3 mm calcified granuloma in the left lower lobe (series 6, image 369). No suspicious pulmonary nodules are identified. Emphysema: none Coronary Calcification: severe Aortic Arch Calcification: mild Potentially Significant Incidentals : none Additional Chest Findings: There is no pleural or pericardial effusion. No mediastinal or axillary lymphadenopathy is identified. A spinal stimulator is noted. Visualized upper abdomen: The visualized portions of the liver, spleen, and adrenals have an unremarkable unenhanced appearance. There is a probable small hiatal hernia. CT/CT lung screening IMPRESSION: No suspicious pulmonary nodules are identified. LUNG-RADS ASSESSMENT: Lung-RADS 2: Benign MANAGEMENT: Continue annual screening with LDCT in 12 months Category S: N/A Electronically signed by: Louis Maldonado MD 07/05/2024 11:02 AM [facility] Dictated By: Louis Maldonado MD Signed By: <Electronically signed by Louis Maldonado MD in OV> 07/05/24 1102 DD/ 1001 TD/TT: 05/26/24 1010 Abrasive Mixer Helper: [facility] External Provider IMG CT PROCEDURES Edited Result - Final * Hemoglobin A1c (05/02/2024 11:16 AM EST) Blood Venous blood specimen / Unknown Historical Provider LAB BLOOD ORDERABLES Shaneka l Result * Hepatitis C Antibody Reflex (01/21/2023 2:59 PM EDT) Pathologist [facility] Hepatitis C Antibody Nonreactive Nonreactive [facility] Comment:Antibodies to HCV no t detected; does not exclude early acuteHCV infection. 01/21/2023 2:59 PM EDT 01/21/2023 5:19 PM EDT Saul Spicer MD LAB BLOOD ORDERABL ES Final Result Performing Organization Address City/State/[facility] Co de Phone Number [facility] [address] [place] [phone] * (ABNORMAL) LIPID PANEL, STANDARD (02/17/2022 11:32 AM EDT) Chol/HDLC Ratio 3.7 <5.0 (calc) [facility] Cholesterol, Total 148 <200 mg/dL [facility] HDL Cholesterol 40 > OR = 40 mg/dL [facility] LDL Cholesterol 72 mg/dL (calc) [facility] Comment: Reference range: <100 ?? Desirable range <100 mg/dL for primary prevention; ?? <70 mg/dL for patients with CHD or diabetic patients ?? with > or = 2 CHD risk factors. ?? LDL-C is now calculated using the Magdalena ?? calculation, which is a validated novel method providing ?? better accuracy than the Friedewald equation in the ?? estimation of LDL-C. ?? Mohan FUENTES et al. FABIOLA. 2013;310(19): 7145-9230 ?? (http://[email or web address]/faq/FSC178) Non-HDL Cholesterol 108 <130 mg/dL (calc) [facility] Comment: For patients with diabetes plus 1 major ASCVD risk ?? factor, treating to a non-HDL-C goal of <100 mg/dL ?? (LDL-C of <70 mg/dL) is considered a therapeutic ?? option. Triglycerides 275(H) <150 mg/dL [facility] Comment: ?? If a non-fasting specimen was collected, consider repeat triglyceride testing on a fasting specimen if clinically indicated. ?? Crystal et al. J. of Clin. Lipidol. 2015;9:129-169. ?? 02/17/2022 11:3 2 AM EDT Saul Spicer MD LAB BLOOD ORDERABL ES Final Result Performing Organization Address City/State/[facility] Co de Phone Number [facility] [address] * Colonoscopy (11/05/2021) Colonoscopy performed [facility] Provider HEALTH MAINTENANCE Final Result from Last 3 Months or Most Recently Relevant to Health Maintenance Insurance [facility] - [facility] * Guarantor: [employer] Account Type Relation to Patient Date of Phone Billing Address Personal/Family Self [address] [facility] [address] [place] Care Teams Formula Checker Relationship Specialty Start Date End Date Saul Barbour MD [address] [facility] [place] [address] PCP - General Internal Medicine 10/27/19 Harshad Ho 08/13/23
--- OUTSIDE RECORDS SUMMARY | 2024-08-22 10:55 | XMS_ITS | Encounter Summary ---
Author Organization [employer] Address [address] [facility] 7t [place] [address] Care Team Providers Care Printing Press Machinist Name Role Phone Saul Barbour MD Primary Care Prov ider Reason for Visit * Reason Onset Date Comments Medication Question 08/02/2023 Encounter Details Date Type Department Care Team ([facility] Contact Info) Description 08/02/2023 Telephone [facility] CHC MED & PEDS [address] [place] [address] Saul Barbour MD 505 [place] [address] Medication Question Social History Tobacco Use Types [...] Telephone Encounter - Morena Horne RN - 08/02/2023 2:55 PM EST TC placed to patient. Patient assured that new script for azithromycin was sent to [facility] today by and should be waiting for him. Patient reports that diarrhea has improved on the antibiotic and he is heading in the right direction. He will pick up driver new script. Patient states that freestyle glucometer is no longer turning on when he inserts a test strip. He needs a new glucometer but asks if he could have a continuous blood glucose monitoring system that sends results and alerts to his phone. If it is possible, he would prefer this. If not, he still needsa new freestyle glucometer. Routing message to Dr. Whatley for review of request for glucometer script and for any advice regarding azithromycin prescription. Patient advised to be in touch with us if symptoms persist/worsen. Tc from pt requesting a call from a nurse or Pcp in regards to the antibiotics he was prescribed byPCP was dispense wrongly at pharmacy stated that he was supposed to received 6 tablets but only got4 tablets, pt would like to know what to do in regards to it. Pt is also requesting another glucosemonitor due to current monitor not working correctly. * Telephone Encounter - Teodora Sarmiento - 08/02/2023 1:52 PM EST Tc from pt requesting a call from a nurse or Pcp in regards to the antibiotics he was prescribed byPCP was dispense wrongly at pharmacy stated that he was supposed to received 6 tablets but only got4 tablets, pt would like to know what to do in regards to it. Pt is also requesting another glucosemonitor due to current monitor not working correctly. documented in this encounter Plan of Treatment Not on file documented as of this encounter Visit Diagnoses Not on filedocumented in this encounter Additional Health Concerns Assessment Noted Time PHQ-9 Depression Total Score: 18 024 10:06 AM EST documented as of this encounter Care Teams Printing Press Machinist Relationship Specialty Start Date End Date Saul Barbour MD [address] [place] [address] PCP - General Internal Medicine 10/27/19 Harshad Ho 08/13/23 documented as of this encounter
--- OUTSIDE RECORDS SUMMARY | 2024-08-22 10:55 | XMS_ITS | Encounter Summary ---
Author Organization [employer] Address 75 [facility] 7t [place] [address] Care Team Providers Care Tourist Information Officer Name Role Phone Saul Barbour MD Primary Care Prov ider Reason for Visit * Reason Onset Date Comments Med Refill 04/25/2024 Encounter Details Date Type Department Care Team ([facility] st Contact Info) Description 04/25/2024 Telephone [facility] MEDICINE [address] [place] [address] Saul Barbour MD [address] [place] [address] Med Refill Social History Tobacco Use Types [...] Telephone Encounter - Ml Robles LPN - 04/25/2024 2:46 PM EST Medication was sent to [facility] #[id number] on 04/21/24 with 1 refill. * Telephone Encounter - Nicole Goldberg - 04/25/2024 2:34 PM EST TC from pt requesting medication refill. Medications needing refill : ondansetron ODT (Zofran-ODT) 4 MG disintegrating tablet To be sent to: [facility]/pharmacy #[id number] documented in this encounter Plan of Treatment Not on file documented as of this encounter Visit Diagnoses Not on filedocumented in this encounter Additional Health Concerns Assessment Noted Time PHQ-9 Depression Total Score: 15 024 2:48 PM EDT documented as of this encounter Care Teams Tourist Information Officer Relationship Specialty Start Date End Date Saul Barbour MD [address] [place] [address] PCP - General Internal Medicine 10/27/19 Harshad Ho 08/13/23 documented as of this encounter
--- OUTSIDE RECORDS SUMMARY | 2024-08-22 10:55 | XMS_ITS | Encounter Summary ---
Author Organization [employer] Address 75 [facility] 7t [place] [address] Care Team Providers Care Severity Of Illness Coordinator Name Role Phone Saul Barbour MD Primary Care Prov ider Encounter Details Date Type Department Care Team ([facility] Contact Info) Description 06/30/2023 Orders Only [facility] CHC MED & PEDS [address] [place], [place] [phone] Saul Barbour MD [address] [place] [address] Social History Tobacco Use Types Packs/Day Years [...] your housing situation today? I have lion livingstno 03/22/[address] you li [...] documented as of this encounter Care Teams Severity Of Illness Coordinator Relationship Specialty Start Date End Date Saul Barbour MD [address] [place] [address] PCP - General Internal Medicine 10/27/19 Harshad Ho 08/13/23 documented as of this encounter
--- OUTSIDE RECORDS SUMMARY | 2024-08-22 10:55 | XMS_ITS | Encounter Summary ---
Author Organization [employer] Address [address] [facility] [address] 7t [place] [address] Care Team Providers Care Risk Control Consultant Name Role Phone Saul Barbour MD Primary Care Prov ider Encounter Details Date Type Department Care Team ([facility] st Contact Info) Description 06/25/2023 Telephone [facility] MEDICINE [address] [place] [address] Saul Barbour MD [address] [place] [address] Social History Tobacco Use Types Packs/Day Years [...] documented as of this encounter Care Teams Risk Control Consultant Relationship Specialty Start Date End Date Saul Barbour MD [address] [place] [address] PCP - General Internal Medicine 10/27/19 Harshad Ho 08/13/23 documented as of this encounter
--- OUTSIDE RECORDS SUMMARY | 2024-08-22 10:55 | XMS_ITS | Encounter Summary ---
Author Organization [employer] Address 75 [facility] 7t [place] [address] Care Team Providers Care Stiff Leg Derrick Operator Name Role Phone Saul Barbour MD Primary Care Prov ider Reason for Visit * Reason Comments Med Refill Encounter Details Date Type Department Care Team ([facility] Contact Info) Description 07/29/2024 Refill [facility] CHC MED & PEDS [address] [place] [address] Saul Barbour MD [address] [place] [address] Social History Tobacco Use Types Packs/Day Years [...] enough money to get more: Never True 05/ Transportation Answer Date Recorded In the past [...] documented as of this encounter Care Teams Stiff Leg Derrick Operator Relationship Specialty Start Date End Date Saul Barbour MD [address] [place] [address] PCP - General Internal Medicine 10/27/19 Harshad Ho 08/13/23 documented as of this encounter
--- OUTSIDE RECORDS SUMMARY | 2024-08-22 10:55 | XMS_ITS | Encounter Summary ---
Author Organization [employer] Address [address] [place] [address] 7t [place] [address] Care Team Providers Care Alodize Machine Operator Name Role Phone Saul Barbour MD Primary Care Prov ider Encounter Details Date Type Department Care Team (Latest Contact Info) Description 09/12/2020 Abstract [facility] Dental, Provider, DDS Social History Tobacco Use Types Packs/Day Years Used Date Smoking Tobacco: Never Assessed Sex and Gender Information Value Date Recorded Sex Assigned at Male 04/06/2022 10:30 AM EDT Legal Sex Male 10:30 AM EDT Gender Identity Male 04/06/2022 10:30 AM EDT Sexual Orientation Straight 04/06/2022 10 :30 AM EDT documented as of this encounter Plan of Treatment Not on file documented as of this encounter Visit Diagnoses Not on filedocumented in this encounter Care Teams Alodize Machine Operator Relationship Specialty Start Date End Date Saul Barbour MD 505 [place] [address] PCP - General Internal Medicine 10/27/19 Elara Caring 08/13/23 documented as of this encounter
--- OUTSIDE RECORDS SUMMARY | 2024-08-22 10:55 | XMS_ITS | Encounter Summary ---
Author Organization [employer] Address 75 [facility] 7t [place] [address] Care Team Providers Care Mechanical Press Operator Name Role Phone Saul Barbour MD Primary Care Prov ider Reason for Visit * Reason Onset Date Comments Order 12/21/2023 Encounter Details Date Type Department Care Team ([facility] Contact Info) Description 12/21/2023 Telephone [facility] CHC MED & PEDS [address] [place] [address] Saul Barbour MD 505 [place] [address] Order Social History Tobacco Use Types Packs/Day Years [...] encounter Miscellaneous Notes * Telephone Encounter - Teodora Sarmiento - 12/22/2023 10:47 AM EDT Tc from pt requesting status on request below . * Telephone Encounter - Nakita Cuevas - 12/21/2023 12:38 PM EDT Tc from pt requesting to add another order for xray for right ankle Please call pt to clarify. documented in this encounter Plan of Treatment Not on file documented as of this encounter Visit Diagnoses Not on filedocumented in this encounter Additional Health Concerns Assessment Noted Time PHQ-9 Depression Total Score: 15 024 2:48 PM EDT documented as of this encounter Care Teams Mechanical Press Operator Relationship Specialty Start Date End Date Saul Barbour MD [address] [place] [address] PCP - General Internal Medicine 10/27/19 Harshad Ho 08/13/23 documented as of this encounter
--- OUTSIDE RECORDS SUMMARY | 2024-08-22 10:55 | XMS_ITS | Encounter Summary ---
Author Organization [employer] Address [address] [facility] 7t [place] [address] Care Team Providers Care Sifting Operator Name Role Phone Saul Barbour MD Primary Care Prov ider Reason for Visit * Reason Onset Date Comments Call Back Request 07/29/2023 Encounter Details Date Type Department Care Team ([facility] Contact Info) Description 07/29/2023 Telephone [facility] CHC MED & PEDS [address] [place] [address] Saul Barbour MD [address] [place] [address] Call Back Request Social History Tobacco Use Types Packs/Day Years [...] Telephone Encounter - Trish Gonzalez RN - 07/30/2023 11:45 AM EST Pt advised to go to [facility] after being triaged yesterday. * Telephone Encounter - Teodora Sarmiento - 07/29/2023 3:57 PM EST Tc from pt requesting to speak with provider or nurse in regards to today's visit states he forgot to tell something to the provider and would like to speak with him in regards to it. Pt states it's regarding a cough and Nausea and blood pressure symptoms that his experiencing but provider already knows. documented in this encounter Plan of Treatment Not on file documented as of this encounter Visit Diagnoses Not on filedocumented in this encounter Additional Health Concerns Assessment Noted Time PHQ-9 Depression Total Score: 18 024 10:06 AM EST documented as of this encounter Care Teams Sifting Operator Relationship Specialty Start Date End Date Saul Barbour MD [address] [place] [address] PCP - General Internal Medicine 10/27/19 Harshad Ho 08/13/23 documented as of this encounter
--- OUTSIDE RECORDS SUMMARY | 2024-08-22 10:55 | XMS_ITS | Encounter Summary ---
Author Organization [employer] Address [address] [facility] 7t [place] [address] Care Team Providers Care Sap Abap Programmer Name Role Phone Saul Barbour MD Primary Care Prov ider Reason for Visit * Reason Comments Med Refill Encounter Details Date Type Department Care Team ([facility] Contact Info) Description 07/23/2024 Refill [facility] CHC MED & PEDS [address] [place] [address] Saul Barbour MD [address] [place] [address] Social History Tobacco Use Types Packs/Day Years [...] documented as of this encounter Care Teams Sap Abap Programmer Relationship Specialty Start Date End Date Saul Barbour MD [address] [place] [address] PCP - General Internal Medicine 10/27/19 Harshad Ho 08/13/23 documented as of this encounter
--- OUTSIDE RECORDS SUMMARY | 2024-08-22 10:55 | XMS_ITS | Encounter Summary ---
Author Organization [employer] Address [address] [place] [address] 7t [place] [address] Care Team Providers Care Therapeutic Activities Services Worker Name Role Phone Saul Barbour MD Primary Care Prov ider Encounter Details Date Type Department Care Team (Latest Contact Info) Description 07/27/2018 Abstract [facility] CONVERSION[facility] Dental, Provider, DDS Social [...] on filedocumented in this encounter Care Teams Therapeutic Activities Services Worker Relationship Specialty Start Date End Date Saul Barbour MD [address] [place] [address] PCP - General Internal Medicine 10/27/19 Elara Caring 08/13/23 documented as of this encounter
--- OUTSIDE RECORDS SUMMARY | 2024-08-22 10:55 | XMS_ITS | Encounter Summary ---
Author Organization [employer] Address 75 [facility] 7t [place] [address] Care Team Providers Care Commodities Broker Name Role Phone Saul Barbour MD Primary Care Prov ider Reason for Visit * Reason Comments Med Refill Encounter Details Date Type Department Care Team ([facility] st Contact Info) Description 11/04/2022 Refill [facility] CHC MED & PEDS [address] [place], [place] [phone] Saul Barbour MD [address] [place] [address] Type 2 diabetes mellitus with stage 3b chronic kidney disease, with long-term current use of insulin (CMS/HCC); Essential hypertension Social History Tobacco Use Types Packs/Day Years [...] with long-term current use of insulin (CMS/HCC) Essential hypertension Unspecified essential hypertension documented in this encounter Additional Health Concerns Assessment Noted Time PHQ-9 Depression Total Score: 26 05/22/ 022 10:52 AM EST documented as of this encounter Care Teams Commodities Broker Relationship Specialty Start Date End Date Saul Barbour MD [address] [place] [address] PCP - General Internal Medicine 10/27/19 Harshad Ho 08/13/23 documented as of this encounter
--- OUTSIDE RECORDS SUMMARY | 2024-08-22 10:55 | XMS_ITS | Encounter Summary ---
Author Organization [employer] Address [address] [place] [address] 7t [place] [address] Care Team Providers Care Highway Maintenance Supervisor Name Role Phone Saul Barbour MD Primary Care Prov ider Encounter Details Date Type Department Care Team ([facility] Contact Info) Description 05/25/2022 Abstract [facility] ADULT DENTAL [address] [place] [address] Angus Rosales DMD [address] [place] [address] Social History Tobacco Use Types Packs/Day Years Used Date Smoking Tobacco: Every Day Cigarettes Tobacco Cessation:Ready to Q uit: Not Asked; Counseling Given: Not Answered Depression Answer Date Recorded Patient Health Questionnaire-9 [...] suspected to have Coronavirus/COVID-19? No / Unsure 05/22/2022 10:19 AM EST documented as of this encounter Plan of Treatment Scheduled Orders Name Type Priority Associated Diagnoses Orde r Schedule 5 B(V) 5 B(V) RESIN-BASED COMPOSITE - 1 SURFACE, POSTERIOR Dental Routine 1 Occurrenc es starting 02/04/2024 4 MODB 4 MODB RESIN-BASED COMPOSITE - 4 OR MORE SURFACES, POSTERIOR Dental Routine [address] arting 02/04/2024 6 MDF(V)L 6 MDF(V)L RESIN-BASED COMPOSITE - 4 OR MORE SURFACES (ANTERIOR) Dental Routine [address] arting 02/04/2024 7 MDL 7 MDL RESIN-BASED COMPOSITE - 3 SURFACES, ANTERIOR Dental Routine [address] arting 02/04/2024 11 ML 11 ML RESIN-BASED COMPOSITE - 2 SURFACES, ANTERIOR Dental Routine [address] arting 02/04/2024 20 B(V) 20 B(V) RESIN-BASED COMPOSITE - 1 SURFACE, POSTERIOR Dental Routine 1 Occurrenc es starting 02/04/2024 32 32 EXTRACTION, ERUPTED TOOTH OR EXPOSED ROOT (ELEVATION AND/OR FORCEPS REMOVAL) Dental Routine 1 Occurr ences starting 02/04/2024 17 17 EXTRACTION, ERUPTED TOOTH OR EXPOSED ROOT (ELEVATION AND/OR FORCEPS REMOVAL) Dental Routine 1 Occurr ences starting 02/04/2024 20 L(V) 20 L(V) RESIN-BASED COMPOSITE - 1 SURFACE, POSTERIOR Dental Routine 1 Occurrenc es starting 02/04/2024 30 30 CROWN - PORCELAIN/CERAMIC Dental Routine 1 Occurrences starting 02/04/2024 31 31 CROWN - PORCELAIN/CERAMIC Dental Routine 1 Occurrences starting 02/04/2024 documented as of this encounter Procedures Procedure Name Priority Date/Time Associated Diagnosis Comments 3 CROWN - PORCELAIN/CERAMIC Routine 05/25/2022 12:00 AM EST 19 CROWN - PORCELAIN/CERAMIC Routine 05/25/2022 12:00 AM EST 14 MODBL COMPOSITE FILLING Routine 05/25/2022 12:00 AM EST 13 MODB COMPOSITE FILLING Routine 05/25/2022 12:00 AM EST 12 COMPOSITE FILLING Routine 022 12:00 AM EST 10 MIDFL COMPOSITE FILLING Routine 05/25/2022 12:00 AM EST 8 DL COMPOSITE FILLING Routine 12:00 AM EST 7 L COMPOSITE FILLING Routine 05/25/2022 12:00 AM EST 7 F COMPOSITE FILLING Routine 05/25/2022 12:00 AM EST 7 D COMPOSITE FILLING Routine 05/25/2022 12:00 AM EST 7 M COMPOSITE FILLING Routine 05/25/2022 12:00 AM EST 21 B COMPOSITE FILLING Routine 12:00 AM EST 20 B COMPOSITE FILLING Routine 12:00 AM EST 18 MOD COMPOSITE FILLING Routine 12:00 AM EST 27 TX COMPOSITE FILLING Routine 05/25/20 12:00 AM EST 28 MOB COMPOSITE FILLING Routine 12:00 AM EST 29 MODB COMPOSITE FILLING Routine 05/25/2022 12:00 AM EST 30 MODB COMPOSITE FILLING Routine 05/25/2022 12:00 AM EST 31 MOB COMPOSITE FILLING Routine 12:00 AM EST 6 TX COMPOSITE FILLING Routine 12:00 AM EST 5 DO COMPOSITE FILLING Routine 12:00 AM EST 4 MOD COMPOSITE FILLING Routine 05/25/20 12:00 AM EST 2 MOD COMPOSITE FILLING Routine 05/25/20 12:00 AM EST 16 EXTRACTION Routine 05/25/2022 12:00 AM EST 15 EXTRACTION Routine 05/25/2022 12:00 AM EST 1 EXTRACTION Routine 05/25/2022 12:00 AM EST 19 ROOT CANAL Routine 05/25/2022 12:00 AM EST documented in this encounter Visit Diagnoses Not on filedocumented in this encounter Additional Health Concerns Assessment Noted Time PHQ-9 Depression Total Score: 26 10:52 AM EST documented as of this encounter Care Teams Highway Maintenance Supervisor Relationship Specialty Start Date End Date Saul Barbour MD [address] [place] [address] PCP - General Internal Medicine 10/27/19 Harshad Ho 08/13/23 documented as of this encounter
--- OUTSIDE RECORDS SUMMARY | 2024-08-22 10:55 | XMS_ITS | Encounter Summary ---
Author Organization [employer] Address [address] [facility] 7t [place] [address] Care Team Providers Care Secretary Name Role Phone Saul Barbour MD Primary Care Prov ider Reason for Visit * Reason Onset Date Comments Appointment 03/04/2023 Encounter Details Date Type Department Care Team ([facility] st Contact Info) Description 03/04/2023 Telephone [facility] ADULT DENTAL [address] [place] [address] Ninoska Aguilar BDS Appointment Social History Tobacco Use Types Packs/Day Years [...] encounter Miscellaneous Notes * Telephone Encounter - Mamta Kumari - 03/04/2023 4:28 PM EDT Patient called in stating that he needs to reschedule an appt that he missed due to being in the hospital. Informed patient that [facility] would have to assist directly. He said he thought he was calling [facility]. I did inform that calls for [facility] come in [facility] the [facility] and that I would relay message to office. It is an appt with Dr. Aguilar and he would jose to be scheduled with someone who can see himDR documented in this encounter Plan of Treatment Not on file documented as of this encounter Visit Diagnoses Not on filedocumented in this encounter Additional Health Concerns Assessment Noted Time PHQ-9 Depression Total Score: 26 022 10:52 AM EST documented as of this encounter Care Teams Secretary Relationship Specialty Start Date End Date Saul Barbour MD [address] [place] [address] PCP - General Internal Medicine 10/27/19 Harshad Ho 08/13/23 documented as of this encounter
--- OUTSIDE RECORDS SUMMARY | 2024-08-22 10:55 | XMS_ITS | Clinical Summary ---
Author Organization [facility] Address [address] [facility] [address] [place] [address] Phone Care Team Providers Care Deck Cadet Name Role Phone Saul Whatley Primary Care Provider + [phone] Allergies Active Allergy Reactions Criticality Noted Date Comments Molds & Smuts 07/31/2021 Other reaction(s): upper resp congestion Pollen Extract 07/31/2021 Other reaction(s): sneezing Medications Mapap Arthritis Pain 650 MG 8 hr tablet TAKE 1 TABLET BY ORAL ROUTE EVERY 8 HOURS NEEDED. DO NOT BREAK, CRUSH, DISSOLVE AND/OR CHEW. 2 Active albuterol HFA (PROVENTIL HFA;VENTOLIN HFA) 108 (90 Base) MCG/ACT inhaler INHALE 2 PUFFS BY MOUTH EVERY 4-6 HOURS NEEDEDF OR SHORTNESS OF BREATH/WHEEZING 2 Active Aspirin Low Dose 81 MG EC tablet Take 81 mg by mouth 1 (one) time each day 2 Active atorvastatin (LIPITOR) 80 MG tablet Take 80 mg by mouth 0 Active azelastine (ASTELIN) 0.1 % nasal spray 0 Refills, Maintenance, 06/03/21 1:25:00 EST, Partial fill upon patient request if the prescription is for a schedule II opioid drug. 0 Active cholecalcifero l (VITAMIN D-3) 25 MCG (1000 UT) tablet Take 1,000 Units by mouth 1 (one) time each day 1 Active Trelegy Ellipta 200-62.5-25 MCG/INH aerosol powder INHALE 1 PUFF ONCE DAY 2 Active Alaway 0.025 % ophthalmic solution INSTIL 1 DROP INTO AFFECTED EYE TWICE A DAY 2 Active LORazepam (ATIVAN) 1 MG tablet Take 1 mg by mouth 2 Active metoprolol tartrate 25 MG tablet TAKE 1 TABLET BY MOUTH TWO TIMES A DAY 2 Active nabumetone (RELAFEN) 750 MG tablet Take 750 mg by mouth 1 Active naltrexone (DEPADE) 50 MG tablet Take 25 mg by mouth 2 Active QUEtiapine (SEROquel) 100 MG tablet Take 200 mg by mouth every night 2 Active thiamine (VITAMIN B-1) 100 MG tablet 2 Active furosemide (Lasix) 40 MG tablet Take 1 tablet (40 mg total) by mouth in the morning and 1 tablet (40 mg total) in the evening. 180 tablet 3 2 Active Testosterone 20.25 MG/ACT (1.62%) gel APPLY 2 PUMPS TOPICALLY DAILY OVER MAX AREA - ALTERNATE SHOULDERS ON ALTERNATE DAYS 2 Active tadalafil (CIALIS) 20 MG tablet take 1 tablet daily As Needed for sexual activity; administer approximately 30min before sexual activity; do not use more than 1 dose per 24hrs 2 Active omeprazole (PriLOSEC) [address] capsule TAKE 1 CAPSULE BY MOUTH TWICE A DAY FOR 14 DAYS 2 Active gabapentin (NEURONTIN) 600 MG tablet Take 600 mg by mouth 2 Active FLUoxetine (PROzac) 40 MG capsule Take by mouth 1 (one) time each day 2 Active predniSONE 5 MG tablet 3 Active ALBUTEROL IN TAKE 2 PUFFS BY MOUTH EVERY 4 TO 6 HOURS NEEDED FOR SHORTNESS OF BREATH OR WHEEZING FOR 30 DAYS 3 Active capsaicin (ZOSTRIX) 0.025 % cream APPLY TO AFFECTED AREA TWICE A DAY 3 Active FLUoxetine (PROzac) 20 MG capsule TAKE 1 CAPSULE BY MOUTH EVERY DAY WITH 40MG TO EQUAL 60 MG 3 Active buPROPion XL (WELLBUTRIN XL) 150 MG 24 hr tablet Take 150 mg by mouth 1 (one) time each day 3 Active loperamide (IMODIUM) 2 MG capsule TAKE 1 CAPSULE BY MOUTH EVERY 4 HOURS NEEDED FOR LOOSE STOOL. NOT TO EXCEED 8 CAPSULES IN 24 HOURS. 3 Active ipratropium-al buterol (DUO-NEB) 0.5-2.5 mg/3 mL nebulizer solution INHALE 1.5ML (1/2 VIAL) VIA NEBULIZER EVERY 4 TO 6 HOURS NEEDED FOR WHEEZING 3 Active folic acid (FOLVITE) 1 MG tablet Take 1,000 mcg by mouth 1 (one) time each day 3 Active tadalafil (CIALIS) 10 MG tablet TAKE ONE TABLET BY MOUTH DAILY FOR sexual activity, DAILY medication 3 Active terazosin (HYTRIN) 5 MG capsule Take 5 mg by mouth at bed time 3 Active KLOR-CON 20 MEQ CR tablet 3 Active sulindac (CLINORIL) 150 MG tablet Take 150 mg by mouth 3 Active Empagliflozin (Jardiance) 25 MG tabletIndicati ons:Stage 3b chronic kidney disease (HCC),Hyperten eileen Take 25 mg by mouth 1 (one) time each day in the morning 90 tablet 3 4 01/24/20 25 Active amLODIPine (NORVASC) 5 MG tabletIndicati ons:Hypertensi on Take 1 tablet (5 mg total) by mouth 1 (one) time each day 90 tablet 3 4 01/24/20 25 Active Active Problems Problem Noted Date Diagnosed Date Anemia in chronic kidney disease 01/24/2024 Vitamin D deficiency, not otherwise specified Back problem 05/25/2022 01/25/2023 Benign hypertension 04/21/2022 Type 2 diabetes mellitus wit h diabetic chronic kidney disease 04/21/2022 Alcoholic gastritis 07/31/2021 Hypertension 07/31/2021 Benign prostatic hyperplasia 07/31/2021 Chest pain 07/31/2021 Stage 3b chronic kidney disease 07/31/2021 Hyperlipidemia 07/31/2021 Moderate chronic obstructive pulmonary disease 0 09/27/2018 01/25/2023 Alcoholism 07/26/2018 01/25/2023 Mood disorder 07/26/2018 01/25/2023 Smoker 07/26/2018 01/25/2023 Prostate specific antigen above reference range 03/15/2018 Encounters Date Type Department Care Team Description 06/07/2024 Orders Only [facility] [address] [place] [address] [place] [id number] Ml Tanner ARNP Stage 3b chronic kidney disease (HCC); Hypertension from Last 3 Months Immunizations Name Administration Dates Next Due Hepatitis B 01/24/2018,11/18/2016 Moderna SARS-COV-2 05/26/2021,10/23/2020, 021 Pneumococcal Polysaccharide 03/24/2015 Shingrix 05/07/2021,04/19/2020,07/13/2018 Tdap 02/17/2018,02/03/2016 Social History Tobacco Use Types Packs/Day Years Used Date Smoking Tobacco: Never Smokeless Tobacco: Never Tobacco Cessation:Counseling Given: Not Answered Alcohol Use Standard Drinks/Week Comments Yes 0 (1 standard drink = 0.6 oz pur e alcohol) Sex and Gender Information Value Date Recorded Sex Assigned at Not on file Legal Sex Male 1:53 PM EST Gender Identity Not on file Sexual Orientation Not on file Last Filed Vital Signs Vital Sign Reading Time Taken Comments Blood Pressure 100/62 01/24/2024 8:20 AM EDT Pulse 60 01/24/2024 7:46 AM EDT Temperature - - Respiratory Rate - - Oxygen Saturation 96% 01/24/2024 7:46 AM EDT Inhaled Oxygen Concentration - - Weight 72.6 kg (160 lb) 01/24/2024 7:46 AM EDT Height 175.3 cm (5' 9 ) 01/24/2024 7:46 AM EDT Body Mass Index 23.63 01/24/2024 7:46 AM EDT Plan of Treatment Upcoming Encounters Date Type Department Care Team (Late st Contact Info) Description 08/24/2024 2:15 PM EDT Office Visit [facility] [address] [facility] [address] [place] [address] Ml Tanner ARNP [address] [facility] [address] [place] [address] [phone] (work) Health Maintenance Due Date Last Done Comments Colorectal Cancer Screening: Annual FOBT 2010 Colorectal Cancer Screening: Colonoscopy 2010 Colorectal Cancer Screening: Sigmoidoscopy 2010 Diabetes: Ophthalmology Exam 04/21/2022 Diabetes: Pedal Pulse Checked 04/21/2022 Diabetes: Sensory Foot Exam 04/21/2022 Diabetes: Visual Foot Exam 04/21/2022 Influenza Vaccine (#1) 2024 2, 05/07/2021, 02/14/2019, Additional history exists Diabetes: Hemoglobin A1C 08/02/2024 024, 09/15/2023, 07/29/2022, Additional history exists Hepatitis B Vaccine Aged Out 06/10/2018, 01/24/2018, 11/18/2016 No longer eligible based on patient's age to complete this topic Pneumococcal Vaccine: Pediatrics (0 to 5 Years) and At-Risk Patients (6 to 64 Years) Completed 12/26/2022, 03/24/2015 Procedures Procedure Name Priority Date/Time Associated Diagnosis Comments HEMOGLOBIN A1C Routine 07/29/2022 9:17 AM EST Type 2 diabetes mellitus with diabetic chronic kidney disease (HCC) Stage 3 chronic kidney disease, not otherwise specified (HCC) Benign hypertension from Last 3 Months or Most Recently Relevant to Health Maintenance Results * (ABNORMAL) Hemoglobin A1c (07/29/2022 9:17 AM EST) Hemoglobin A1C 5.8(H) (4.0-5.6) % [facility] Comment: MONITORING: In known diabetic patients, hemoglobin A1c targets should be discussed with health care provider. DIAGNOSTIC USE: ??The [place] Diabetes Association (ADA) and the World Health Organization (WHO) recommend the use of HbA1c to diagnose diabetes using a threshold of 6.5%. Patients who have an HbA1c between 5.7% and 6.4% are considered at increased risk for developing diabetes in the future. CAUTION: Falsely low HbA1c results may be observed in patients with hemolytic anemia, homozygous forms of abnormal hemoglobin (e.g. SS, CC, SC), , recent blood loss or hemoglobin F greater than 7%. Fructosamine may be used as an alternate test in these cases. REFERENCE: ADA: Standards of Medical Care in Diabetes 2020, The Journal of Clinical and Applied Research and Education Volume 43, Supplement 1 Testing performed or reported by [facility] [employer], a Service of [facility], [address] [place] [id number] Pratik Thompson MD, Laborer [place] [facility]# [id number] Blood (Blood, Venous) 07/29/2022 9:17 AM EST 07/29/2022 9:20 AM EST us Rachid Ortega MD LAB BLOOD ORDERABLES Final Re sult [facility] from Last 3 Months or Most Recently Relevant to Health Maintenance Insurance ([id number]) [facility] [id number] [facility] ([id number]) Care Teams Deck Cadet Relationship Specialty Start Date End Date Whatley, Saul [address] [place] [id number] PCP - General Internal Medicine 07/31/21
--- OUTSIDE RECORDS SUMMARY | 2024-08-22 10:55 | XMS_ITS | Encounter Summary ---
Author Organization [employer] Address [address] [facility] 7t [place] [address] Care Team Providers Care Client Experience Manager Name Role Phone Saul Barbour MD Primary Care Prov ider Encounter Details Date Type Department Care Team ([facility] st Contact Info) Description 04/23/2022 Abstract [facility] MED & PEDS [address] [place] [address] ProviderAndrea MD Social History Tobacco Use Types [...] Procedure Name Priority Date/Time Associated Diagnosis Comments COLONOSCOPY Routine 11/05/2021 COLONOSCOPY Routine 05/04/2011 documented in this encounter Results * Colonoscopy (11/05/2021) Colonoscopy performed us Historical Provider HEALTH MAINTENANCE Final Result * Colonoscopy (05/04/2011) Colonoscopy performed us Historical Provider HEALTH MAINTENANCE Final Result documented in this encounter Visit Diagnoses Not on filedocumented in this encounter Care Teams Client Experience Manager Relationship Specialty Start Date End Date Saul Barbour MD [address] [place] [id number] PCP - General Internal Medicine 10/27/19 Harshad Ho 08/13/23 documented as of this encounter
== END 2024-08-22 10:31 | disposition home or self-care (01) ==
LOC: HO.HPS 09:49
PROVIDERS: PCP Internal Medicine; Visit Provider Internal Medicine
DX: J44.9 Chronic obstructive pulmonary disease, unspecified (principal); J96.92 Respiratory failure, unspecified with hypercapnia; F17.210 Nicotine dependence, cigarettes, uncomplicated
CPT/HCPCS: 99213

== ENCOUNTER → 2024-08-22 09:48 | Outpatient (BNVA) | payer OTHER, SELFPAY | PROVIDERS: PCP Internal Medicine; Visit Provider Internal Medicine | DX: J44.9 Chronic obstructive pulmonary disease, unspecified (principal); J96.92 Respiratory failure, unspecified with hypercapnia; F17.210 Nicotine dependence, cigarettes, uncomplicated | CPT/HCPCS: 99212 ==

== ENCOUNTER 2024-09-29 14:52 | Outpatient (REF) | payer OTHER, SELFPAY ==
--- OUTSIDE RECORDS SUMMARY | 2024-09-29 15:35 | XMS_ITS | Clinical Summary ---
Author Organization [facility] Address [address] [place] [address] Phone Care Team Providers Care Wax Bleacher Name Role Phone Saul Barbour Primary Care [...] (one) time each day. 50 g 07/11/19 Active Encounters Date Type Department Care Team Description 07/11/2024 10:00 AM EST Procedure visit Orthopedic Surgery - [address] [address] Alvin Sheriff, DPTalia Cellulitis of left foot (Primary Dx); Ingrowing nail from Last 3 Months Immunizations Name [...] PM EDT Office Visit Orthopedic Surgery - [place] [address] [facility] [address] [place] [address] Alvin Sheriff, DPM [address] [facility] [place] [address] [place] [address] Health Maintenance Due Date Last Done Comments Diabetes: Annual GFR (Glomerular Filtration Rate) 1961 Diabetes: Annual Foot Exam 1971 Diabetes: Annual Retina Eye Exam 1971 Hepatitis A Vaccines (1 of 2 - Risk 2-dose series) 01/30/1980 Colorectal Cancer Screening: Colonoscopy 05/10/2022 HIV Screening [...] 64 Years) Completed 12/26/2022, 03/24/2015 RSV Immunization Adult Patients Completed 07/23/2023 COVID-19 Vaccine Completed 02/08/2024, , [...] age to complete this topic Meningococcal B Vaccine Aged Out No l onger eligible based on patient's age to complete [...] ID:[id number] Group ID:[id number] Type:Not on file Address: [place] [address] [place] [id number] Care Teams Wax Bleacher Relationship Specialty Start Date End Date Saul Barbour [address] [place], [place] PCP - General 06/16/23
--- OUTSIDE RECORDS SUMMARY | 2024-09-29 15:35 | XMS_ITS | Encounter Summary ---
Author Organization [employer] Address [address] [facility] 7t [place] [address] Care Team Providers Care Sand Screener Operator Name Role Phone Saul Barbour MD Primary Care Prov ider Reason for Visit * Reason Onset Date Comments Med Refill 12/13/2023 Encounter Details Date Type Department Care Team ([facility] st Contact Info) Description 12/13/2023 Telephone [facility] MED[facility]INE [address] [place] [address] Saul Barbour MD [address] [facility] [place] [address] Med Refill Social History Tobacco Use Types [...] MG disintegrating tablet To be sent to: [facility]/pharmacy #[id number] [place], [place] - [address] [place] [address] documented in this encounter Plan of Treatment Upcoming Encounters Date Type Department Care Team (Late st Contact Info) Description 10/11/2024 1:00 PM EDT Office Visit [facility] ADULT D[facility]AL [address] [place] [address] Shaka Velazquez, IRENE [address] [place] [address] documented as of this encounter Visit Diagnoses Not on filedocumented in this encounter Additional Health Concerns Assessment Noted Time PHQ-9 Depression Total Score: 15 024 2:48 PM EDT documented as of this encounter Care Teams Sand Screener Operator Relationship Specialty Start Date End Date Saul Barbour MD [address] [place] [address] PCP - General Internal Medicine 10/27/19 Harshad Ho 08/13/23 documented as of this encounter
--- OUTSIDE RECORDS SUMMARY | 2024-09-29 15:35 | XMS_ITS | Encounter Summary ---
Author Organization [employer] Address [address] [facility] 7t [place] [address] Care Team Providers Care Senior Mechanical Design Engineer Name Role Phone Saul Barbour MD Primary Care Prov ider Reason for Visit * Reason Comments Med Refill Encounter Details Date Type Department Care Team ([facility] Contact Info) Description 09/23/2024 Refill [facility] CH[facility] MED & PEDS [address] [place] [address] Saul Barbour MD [address] [place] [address] Social History Tobacco Use Types Packs/Day Years [...] as of this encounter Plan of Treatment Upcoming Encounters Date Type Department Care Team (Late st Contact Info) Description 10/11/2024 1:00 PM EDT Office Visit [facility] ADULT DENTAL [address] [place] [address] Shaka Velazquez, IRENE [address] [place] [address] documented as of this encounter Visit Diagnoses Not on filedocumented in this encounter Additional Health Concerns Assessment Noted Time PHQ-9 Depression Total Score: 15 024 2:48 PM EDT documented as of this encounter Care Teams Senior Mechanical Design Engineer Relationship Specialty Start Date End Date Saul Barbour MD [address] [place] [address] PCP - General Internal Medicine 10/27/19 Harshad Caring 08/13/23 documented as of this encounter
--- OUTSIDE RECORDS SUMMARY | 2024-09-29 15:35 | XMS_ITS | Encounter Summary ---
Author Organization [employer] Address [address] [facility] 7t [place] [address] Care Team Providers Care Herb Counselor Name Role Phone Saul Barbour MD Primary Care Prov ider Encounter Details Date Type Department Care Team ([facility] st Contact Info) Description 11/18/2023 Telephone [facility] MED & PEDS [address] [place] [address] Saul Barbour MD [address] [place] [address] Social History Tobacco Use Types Packs/Day Years [...] stated the Lancet Device is ready for poultry picker. She statedshe would call pt that it is ready to poultry picker. * Telephone Encounter - Nakita Cuevas - 11/18/2023 1:13 PM EDT Tc from pt requesting Lancet Devices (Lancing Device) misc . States [facility] and they have not yet [facility]. Please call pt to clarify . documented in this encounter Plan of Treatment Upcoming Encounters Date Type Department Care Team (Late st Contact Info) Description 10/11/2024 1:00 PM EDT Office Visit [facility] ADULT DENTAL [address] [place] [address] Shaka Velazquez, DMD [address] [place] [address] documented as of this encounter Visit Diagnoses Not on filedocumented in this encounter Additional Health Concerns Assessment Noted Time PHQ-9 Depression Total Score: 15 024 2:48 PM EDT documented as of this encounter Care Teams Herb Counselor Relationship Specialty Start Date End Date Whatley Spicer, Saul, MD [address] [place] [phone] PCP - General Internal Medicine 10/27/19 Harshad Ho 08/13/23 documented as of this encounter
--- OUTSIDE RECORDS SUMMARY | 2024-09-29 15:35 | XMS_ITS | Encounter Summary ---
Author Organization [employer] Address [address] [facility] [address] 7[address] [place] [address] Care Team Providers Care Consumer Marketing Specialist Name Role Phone Saul Barbour MD Primary Care Prov ider Encounter Details Date Type Department Care Team (Late st Contact Info) Description 09/23/2023 Orders Only [facility] MED[facility] [address] [place] [address] ProviderAndrea MD Social History Tobacco Use Types [...] Description 10/11/2024 1:00 PM EDT Office Visit [facility] CH[facility] ADULT DENTAL [address] [place], [place] [phone] Shaka Velazquez, DMD [address] [place] [address] documented as of this encounter Procedures Procedure Name Priority Date/Time Associated Diagnosis Comments TISSUE PATHOLOGY Routine 08/30/2023 4:16 PM EDT documented in this encounter Results * Tissue Pathology (08/30/2023 4:16 PM EDT) Tissue Historical Provider LAB PATHOLOGY ORDERABLES Final Result documented in this encounter Visit Diagnoses Not on filedocumented in this encounter Additional Health Concerns Assessment Noted Time PHQ-9 Depression Total Score: 15 024 2:48 PM EDT documented as of this encounter Care Teams Consumer Marketing Specialist Relationship Specialty Start Date End Date Saul Barbour MD [address] [place] [address] PCP - General Internal Medicine 10/27/19 Harshad Ho 08/13/23 documented as of this encounter
--- OUTSIDE RECORDS SUMMARY | 2024-09-29 15:35 | XMS_ITS | Encounter Summary ---
Author Organization [employer] Address [address] [facility] 7t [place] [address] Care Team Providers Care Zipper Trimmer Name Role Phone Saul Barbour MD Primary Care Prov ider Reason for Visit * Reason Onset Date Comments Durable Medical Equipment 08/03/2023 Encounter Details Date Type Department Care Team ([facility] st Contact Info) Description 08/03/2023 Telephone [facility] MEDICINE [address] [place] [address] Saul Barbour MD [address] [facility] [place] [place] [address] Durable Medical Equipment Social History Tobacco Use [...] Description 10/11/2024 1:00 PM EDT Office Visit [facility] CHC ADULT DENTAL [address] [place] [address] Shaka Velazquez, IRENE [address] [place] [address] documented as of this encounter Visit Diagnoses Not on filedocumented in this encounter Additional Health Concerns Assessment Noted Time PHQ-9 Depression Total Score: 18 024 10:06 AM EST documented as of this encounter Care Teams Zipper Trimmer Relationship Specialty Start Date End Date Saul Barbour MD [address] [place] [address] PCP - General Internal Medicine 10/27/19 Harshad Ho 08/13/23 documented as of this encounter
--- OUTSIDE RECORDS SUMMARY | 2024-09-29 15:35 | XMS_ITS | Encounter Summary ---
Author Organization [employer] Address [address] [facility] 7t [place] [address] Care Team Providers Care Features Editor Name Role Phone Saul Barbour MD Primary Care Prov ider Encounter Details Date Type Department Care Team ([facility] Contact Info) Description 10/05/2022 Orders Only [facility] MED & PEDS [address] [place], [place] [phone] Saul Barbour MD [address] [place] [address] Back problem (Primary Dx) Social History Tobacco [...] Upcoming Encounters Date Type Department Care Team ([facility] Contact Info) Description 10/11/2024 1:00 PM EDT Office Visit [facility] ADULT DENTAL [address] [place], [place] [phone] Shaka Velazquez DMD [address] [place] [address] documented as of this encounter Procedures Procedure Name Priority Date/Time Associated Diagnosis Comments CDIFF GENE PCR Routine 04/07/2023 10:00 AM EDT Back problem GASTROINTESTINAL PANEL Routine 3 10:00 AM EDT Back problem OVA AND PARASITES, CONC AND PERM SMEAR Routine 04/07/2023 10:00 AM EDT Back problem GIARDIA AG, EIA, STOOL Routine 3 10:00 AM EDT Back problem HEPATITIS C ANTIBODY REFLEX Routine 01/21/2023 2:59 PM EDT Back problem documented in this encounter Results * Ova and Parasites,??Concentrate and Permanent Smear (04/07/2023 10:00 AM EDT) Ova and Parasite Trichrome SEE NOTE [facility] Comment: ??OVA AND PARASITES, CONC AND PERM SMEAR ??Micro Number: ?[id number] ??Test Status: ? Final ??Specimen Source: ?? [...] For additional information, please refer to ? [email or web address] ? (This link is being provided for informational/ ? educational purposes only.)THIS TEST WAS PERFORMED AT:[facility] [address] [place], [place] ??[id number] JUDSON,MD 04/07/2023 10:0 0 AM EDT 04/07/2023 5:28 PM EDT us Daryn Crowder MD LAB MICROBIOLOGY - GENERAL ORDERABLES Final Result Performing Organization Address [facility]/State/[facility] Co de Phone Number [facility] [address] [place] [address] [phone] * Giardia Antigen, EIA, Stool (04/07/2023 10:00 AM EDT) Giardia Ag Stool EIA SEE NOTE [facility] Comment:GIARDIA AG, EIA, STO OL Micro Number: [id number] Test Status: Final Specimen Source: Stool Specimen Quality: Adequate Giardia Result 1: Not Detected Reference Range: Not Detected NOTE: Due to intermittent shedding, one negative sample does not necessarily rule out the presence of a parasitic infection.THIS TEST WAS PERFORMED AT:[facility] [address] [id number] APPIAH MD 04/07/2023 10:0 0 AM EDT 04/07/2023 5:28 PM EDT us Daryn Crowder MD LAB BODY FLUIDS AND STOOLS ORDERABLES Final Result [facility] [address] [place] [phone] * Gastrointestinal panel (04/07/2023 10:00 AM EDT) Campylobacter Not Detected Not Detect. [facility] Plesiomonas shigelloides Not Detected Not Detect. [facility] Salmonella Not Detected Not Detect. [facility] Vibrio Not Detected Not Detect. [facility] Vibrio cholerae Not Detected Not Detect. [facility] YERSINIA ENTEROCOLITICA Not Detected Not Detect. [facility] Enteroaggregative E. coli (EAEC) Not Detected Not Detect. [facility] Enteropathogenic E. coli (EPEC) Not Detected Not Detect. [facility] Enterotoxigenic E. coli (ETEC) lt/st Not Detected Not Detect. [facility] Shiga-like toxin-producing E. coli (STEC) stx1/stx2 Not Detected Not Detect. [facility] E coli O157 Not applicable Not Detect. [facility] Comment:E. coli containing t he O157 antigen are a subset ofShiga-like toxin- producing E. coli (STEC). Shigella/Enteroinvasive E. coli (EIEC) Not Detected Not Detect. [facility] Cryptosporidium Not Detected Not Detect. [facility] Cyclospora cayetanensis Not Detected Not Detect. [facility] Entamoeba histolytica Not Detected Not Detect. [facility] Giardia lamblia Not Detected Not Detect. [facility] Adenovirus F 40/41 Not Detected Not Detect. [facility] Astrovirus Not Detected Not Detect. [facility] Norovirus GI/GII Not Detected Not Detect. [facility] Rotavirus A Not Detected Not Detect. [facility] Sapovirus Not Detected Not Detect. [facility] Comment: All results must be [...] assay is performed by Multiplexed PCR, utilizing Swrve Array. 04/07/2023 10:0 0 AM EDT 04/07/2023 5:28 PM EDT us Daryn Crowder MD LAB MICROBIOLOGY - GENERAL ORDERABLES Final Result Performing Organization Address [facility] de Phone Number [facility] [address] [place] [phone] * CDiff Gene PCR (04/07/2023 10:00 AM EDT) [facility] CDiff Gene PCR NEGATIVE Negative [facility] Comment:If C. difficile stro ngly suspected despite one negativetest, a second test may be sent vs. empiric treatment forC. difficile infection. 04/07/2023 10:0 0 AM EDT 04/07/2023 5:26 PM EDT us Daryn Crowder MD LAB BODY FLUIDS AND STOOLS ORDERABLES Final Result Performing Organization Address [facility] Co de Phone Number [facility] [address] [place] [phone] * Hepatitis C Antibody Reflex (01/21/2023 2:59 PM EDT) Hepatitis C Antibody Nonreactive Nonreactive [facility] Comment:Antibodies to HCV no t detected; does not exclude early acuteHCV infection. 01/21/2023 2:59 PM EDT 01/21/2023 5:19 PM EDT us Saul Spicer MD LAB BLOOD ORDERABL ES Final Result [facility] [address] [place] [phone] [phone] documented in this encounter Visit Diagnoses Diagnosis Back problem- Primary Other unspecified back disorder documented in this encounter Additional Health Concerns Assessment Noted Time PHQ-9 Depression Total Score: 26 022 10:52 AM EST documented as of this encounter Care Teams Features Editor Relationship Specialty Start Date End Date Saul Barbour MD [address] [place] [phone] PCP - General Internal Medicine 10/27/19 Harshad Ho 08/13/23 documented as of this encounter
--- OUTSIDE RECORDS SUMMARY | 2024-09-29 15:35 | XMS_ITS | Encounter Summary ---
Author Organization [employer] Address [address] [facility] 7 [place] [address] Care Team Providers Care Scalemaker Name Role Phone Saul Barbour MD Primary Care Prov ider Reason for Visit * Reason Onset Date Comments Medication Question 08/02/2023 Encounter Details Date Type Department Care Team ([facility] Contact Info) Description 08/02/2023 Telephone [facility] MED & PEDS [address] [place] [address] Saul Barbour MD [address] [place] [address] Medication Question Social History Tobacco Use Types [...] new script for azithromycin was sent to [facility] today by and should be waiting for him. Patient reports that diarrhea has improved on the antibiotic and he is heading in the right direction. He will sampler pickup new script. Patient states that freestyle glucometer [...] Description 10/11/2024 1:00 PM EDT Office Visit [facility] ADULT DENTAL [address] [place], [place] [phone] Shaka Velazquez, DMD [address] [place] [address] documented as of this encounter Visit Diagnoses Not on filedocumented in this encounter Additional Health Concerns Assessment Noted Time PHQ-9 Depression Total Score: 18 024 10:06 AM EST documented as of this encounter Care Teams Scalemaker Relationship Specialty Start Date End Date Saul Barbour MD [address] [place] [address] PCP - General Internal Medicine 10/27/19 Harshad Ho 08/13/23 documented as of this encounter
--- OUTSIDE RECORDS SUMMARY | 2024-09-29 15:35 | XMS_ITS | Encounter Summary ---
Author Organization [employer] Address [address] [facility] 7t [place] [address] Care Team Providers Care Medical Accounts Receivable Specialist Name Role Phone Saul Barbour MD Primary Care Prov ider Reason for Visit * Reason Comments Med Refill Encounter Details Date Type Department Care Team ([facility] st Contact Info) Description 12/13/2023 Refill [facility] MEDICINE [address] [place] [address] Daphne Owens MD [address] [place] [address] Social History Tobacco Use Types Packs/Day Years [...] Upcoming Encounters Date Type Department Care Team ([facility] st Contact Info) Description 10/11/2024 1:00 PM EDT Office Visit [facility] ADULT DENTAL [address] [place] [address] Shaka Velazquez, IRENE [address] [place] [address] documented as of this encounter Visit Diagnoses Not on filedocumented in this encounter Additional Health Concerns Assessment Noted Time PHQ-9 Depression Total Score: 15 024 2:48 PM EDT documented as of this encounter Care Teams Medical Accounts Receivable Specialist Relationship Specialty Start Date End Date Saul Barbour MD [address] [place] [address] PCP - General Internal Medicine 10/27/19 Harshad Caring 08/13/23 documented as of this encounter
--- OUTSIDE RECORDS SUMMARY | 2024-09-29 15:35 | XMS_ITS | Encounter Summary ---
Author Organization [employer] Address [address] [facility] 7 [place] [address] Care Team Providers Care Production Recorder Name Role Phone Saul Barbour MD Primary Care Prov ider Reason for Visit * Reason Comments ER Follow-up Encounter Details Date Type Department Care Team ([facility] st Contact Info) Description 09/29/2024 2:20 PM EDT Office Visit [facility] CHC MED & PEDS [address] [place] [address] Daryn Crowder MD [address] [place] [address] Pre-syncope (Primary Dx); Hypoglycemia; Type 2 diabetes mellitus with stage 3a chronic kidney disease, without long-term current use of insulin ([facility]) Social History Tobacco Use Types Packs/Day Years [...] AM EDT documented as of this encounter Last Filed Vital Signs Vital Sign Reading Time Taken Comments Blood Pressure 110/73 09/29/2024 2:20 PM EDT Pulse 65 09/29/2024 2:20 PM EDT Temperature 36.4 ??C (97.5 ??F) 09/29/2024 2:20 PM ED T Respiratory Rate 19 09/29/2024 2:20 PM EDT Oxygen Saturation 94% 09/29/2024 2:20 PM EDT Inhaled Oxygen Concentration - - Weight 71.4 kg (157 lb 6 oz) 09/29/2024 2:20 PM EDT Height 175.3 cm (5' 9 ) 09/29/2024 2:20 PM EDT Body Mass Index 23.24 09/29/2024 2:20 PM EDT documented in this encounter Progress Notes * Daryn Crowder MD - 09/29/2024 2:20 PM EDT SUBJECTIVE Po Bower is a 64 y.o. male who presents for ER Follow-up. ER Follow-up Pertinent negatives include no chills, coughing or diaphoresis. Evaluated at the emergency department on September 26, 2024 after patient had a near syncopal episode from the neurology office. Blood pressure in the office was noted to be low at 86/58 but at that timepatient was asymptomatic but at the time he was about to leave the office he felt confused and was lowered to the ground. Heart rate was 55 as per EMS. Received fluid boluses in the hospital. EKG sinus bradycardia, no ST elevation or depression. Labs: Creatinine 2.0. Patient remained asymptomatic in the emergency department. Given that he remained asymptomatic and did not want to stay in the hospital he was discharged. Mr. Po Bower reports that he has a poor diet and does not feel like eating most of the time.2 days ago he had a similar episode but did not lose consciousness. Did not eat in the morning. Patient Active Problem List Diagnosis Alcoholism ([facility]) Essential hypertension Mixed hyperlipidemia COPD with asthma ([facility]/HCC) Mood disorder (CMS/HCC) Raised prostate specific antigen Smoker Type 2 diabetes mellitus with diabetic chronic kidney disease ([facility]) Back problem Alcoholic gastritis Benign prostatic hyperplasia CKD stage 3 secondary to diabetes ([facility]) Ground glass opacity present on imaging of lung Seizure ([facility]) CORRINE (acute kidney injury) ([facility]) Impacted cerumen of left ear Left ear impacted cerumen Chronic diarrhea Dental calculus Dental plaque Abnormal EKG Acid reflux Acute hypokalemia Alcohol withdrawal seizure ([facility]/HCC) Allergic rhinitis Anemia in chronic kidney disease Autonomic neuropathy due to type 2 diabetes mellitus ([facility]/HCC) Bloating Chronic back pain Chronic diastolic heart failure ([facility]) Encounter for screening colonoscopy Environmental allergies Erectile dysfunction Helicobacter pylori infection Intractable nausea and vomiting Hypogonadism in male Irregular heart beat Laceration of left arm with complication Leukocytosis Major depressive disorder, recurrent severe without psychotic features ([facility]) Nicotine dependence Nonspecific ST-T wave electrocardiographic changes Obesity VIRAJ on CPAP Overactive bladder Paroxysmal A-fib ([facility]) Personal history of other specified conditions PVC (premature ventricular contraction) Right lower quadrant pain SOB (shortness of breath) Type 2 diabetes mellitus with unspecified complications ([facility]/HCC) Vitamin D deficiency Alcohol use disorder Benign localized prostatic hyperplasia with lower urinary tract symptoms (LUTS) Stage 3b chronic kidney disease ([facility]/HCC) COPD (chronic obstructive pulmonary disease) ([facility]) Obsessive-compulsive disorder, unspecified High prostate specific antigen (PSA) No Known Allergies Current Outpatient Medications on File Prior to Visit Medication Sig Dispense Refill acetaminophen (Tylenol 8 Hour) 650 MG ER tablet TAKE 1 TABLET BY MOUTH EVERY 8 HOURS 90 tablet 1 albuterol 108 (90 Base) MCG/ACT inhaler Inhale 2 puffs every 4 (four) hours if needed. Alcohol Swabs (Alcohol Prep) 70 % pads PLACE 1 EACH ON THE SKIN 3 TIMES DAILY. 100 each 11 Alcohol Swabs (Alcohol Prep) pads Per instructions 3 TIMES DAILY (route: topical) amLODIPine (Norvasc) 10 MG tablet Take 0.5 tablets (5 mg) by mouth in the morning. 90 tablet 1 ammonium lactate (Lac-Hydrin) 12 % lotion Apply to soles of feet daily and wear socks to bed at night ARIPiprazole (Abilify) 2.5 MG split tablet 1 tablet DAILY (route: oral) Aspirin Low Dose 81 MG EC tablet TAKE 1 TABLET (81 MG) BY MOUTH IN THE MORNING 90 tablet 3 atorvastatin (Lipitor) 80 MG tablet TAKE 1 TABLET BY MOUTH EVERY MORNING 90 tablet 3 Azelastine HCl 137 MCG/SPRAY solution USE 1 SPRAY INTRANASALLY 2 TIMES A DAY Blood Glucose Monitoring Suppl (Smarterphone) w/Device kit 1 kit in the morning. 1 kit 0 buPROPion XL (Wellbutrin XL) 150 MG 24 hr tablet TAKE 1 TABLET WITH 350MG TO A TOTAL OF 450MG IN THE MORNING Creon [id number] units capsule delayed-release particles capsule TAKE 1 CAPSULE BY MOUTH 3 TIMES A DAY WITH BREAKFAST,LUNCH AND EVENING MEAL 100 capsule 3 D3-1000 25 MCG (1000 UT) tablet TAKE 1 TABLET BY MOUTH EVERY DAY 90 tablet 5 dicyclomine (Bentyl) 10 MG capsule TAKE 1 CAPSULE BY MOUTH FOUR TIMES A DAY 360 capsule 1 famotidine (Pepcid) 20 MG tablet Take 20 mg by mouth in the morning. FLUoxetine (PROzac) 20 MG capsule Take 3 capsules (60 mg) by mouth in the morning. Take 1 capsule by mouth daily in the morning with 20 mg capsule for a total dose of 60 mg (Patient not taking: Reported on 02/04/2024) 90 capsule 3 FLUoxetine (PROzac) 40 MG capsule Take 40 mg by mouth in the morning. Take 1 capsule by mouth dailyin the morning with 20 mg capsule for a total dose of 60 mg Vyieidrtelc-Xtrqfuvdv-Abppnn (Trelegy Ellipta) 200-62.5-25 MCG/ACT aerosol powder Inhale 1 puff in the morning. folic acid (Folvite) 1 MG tablet Take 1 tablet by mouth in the morning. FreeStyle lancets USE TO TEST BLOOD SUGAR ONCE A DAY 100 each 1 furosemide (Lasix) 20 MG tablet TAKE 1 TABLET BY MOUTH EVERY DAY IN THE MORNING 90 tablet 1 gabapentin (Neurontin) 600 MG tablet TAKE 1 TABLET BY MOUTH 2 TIMES DAILY 180 tablet 3 Ronda-Mucil 51.7 % powder MIX 1 ROUNDED TEASPOONFUL IN 8 OUNCES OF COOL LIQUID AND DRINK DAILY NEEDED FOR STOOL BULKING glucose blood (FREESTYLE LITE) test strip 1 each by Other route every 8 (eight) hours. 3x daily 100each 11 hydrOXYzine HCl (Atarax) 25 MG tablet Take 25 mg by mouth in the morning. ipratropium-albuterol (Duo-Neb) 0.5-2.5 mg/3 mL nebulizer solution INHALE 1 VIAL VIA NEBULIZER EVERY 4 TO 6 HOURS NEEDED FOR WHEEZING ketotifen (Zaditor) 0.025 % ophthalmic solution 1 drop. Into affected eye twice a day loperamide (Imodium) 2 MG capsule TAKE 1 CAPSULE (2 MG) BY MOUTH IF NEEDED IN THE MORNING, AT NOON,AND AT BEDTIME FOR DIARRHEA. 24 capsule 0 LORazepam (Ativan) 1 MG tablet Take 1 tablet by mouth every 72 hours. 1 tab every 3 days as needed Melatonin 10 MG capsule Take by mouth. Take 1 capsule by mouth at bedtime as needed metoprolol tartrate (Lopressor) 25 MG tablet TAKE 1 TABLET BY MOUTH TWICE A DAY Multiple Vitamin (Daily-Sadi) tablet Take 1 tablet by mouth in the morning. 90 tablet 1 naltrexone (Depade) 50 MG tablet Take 1 tablet by mouth in the morning. ondansetron ODT (Zofran-ODT) 4 MG disintegrating tablet TAKE 1 TABLET (4 MG) BY MOUTH EVERY 8 HOURSAS NEEDED FOR NAUSEA 20 tablet 1 pyridoxine (Vitamin B-6) 50 MG tablet TAKE 1 TABLET BY MOUTH EVERY DAY QUEtiapine (SEROquel) 100 MG tablet Take 1 tablet by mouth at night Sod Fluoride-Potassium Nitrate 1.1-5 % paste [place] teeth for 2 minutes, morning and night. Spit, donot rinse. Do not eat or drink anything for 30 minutes following brushing. 112 g 3 Sodium Fluoride (PreviDent 5000 Booster Plus) 1.1 % paste Please smear pea-sized amount on tooth brush at night and brush for 2 mins. Do not rinse after brushing . Use regular toothpaste in the morning (Patient not taking: Reported on 02/04/2024) 100 mL 2 tadalafil (Cialis) 10 MG tablet TAKE ONE TABLET BY MOUTH DAILY FOR sexual activity, DAILY medication terazosin (Hytrin) 5 MG capsule TAKE 1 CAPSULE BY MOUTH AT BEDTIME Testosterone 20.25 MG/ACT (1.62%) gel Place 3 Pump on the skin in the morning. thiamine (Vitamin B-1) 100 MG tablet TAKE 1 TABLET BY MOUTH TWO TIMES A DAY tiZANidine (Zanaflex) 2 MG capsule 1 tablet EVERY 8 HOURS (route: oral) traZODone (Desyrel) 50 MG tablet TAKE 1 TABLET BY MOUTH DAILY AT BEDTIME NEEDED FOR INSOMNIA [DISCONTINUED] acetaminophen (Tylenol 8 Hour) 650 MG ER tablet TAKE 1 TABLET BY MOUTH EVERY 8 HOURS90 tablet 1 No current facility-administered medications on file prior to visit. Review of Systems Constitutional: Negative for appetite change, chills and diaphoresis. Eyes: Negative for photophobia, pain and redness. Respiratory: Negative for cough and shortness of breath. Cardiovascular: Negative for leg swelling. Gastrointestinal: Negative for anal bleeding and blood in stool. Musculoskeletal: Negative for back pain and gait problem. OBJECTIVE Vitals: 09/29/24 1420 BP: 110/73 BP Location: Left arm Patient Position: Sitting BP Cuff Size: Adult Pulse: 65 Resp: 19 Temp: 97.5 ??F (36.4 ??C) TempSrc: Oral SpO2: 94% Weight: 157 lb 6 oz (71.4 kg) Height: 5' 9 (1.753 m) Physical Exam Constitutional: General: He is not in acute distress. Appearance: Normal appearance. He is not ill-appearing, toxic-appearing or diaphoretic. Cardiovascular: Rate and Rhythm: Normal rate. Pulmonary: Effort: Pulmonary effort is normal. Neurological: General: No focal deficit present. Mental Status: He is alert. Psychiatric: Mood and Affect: Mood normal. Assessment/Plan Assessment/Plan Diagnoses and all orders for this visit: Pre-syncope Comments: Pt is to keep himself well hydrated. Hypoglycemia Comments: Advised to get regular snacks and to have breakfast in the morning and to hydrate himself well. Ms Po Rollend is not interested in getting further workup for his episode of presyncope. He states that he had a Holter monitor in the past that was unrevealing and he does not want to waste thetime of anybody. Aware that to contact the office if he changes his mind and if he wants further evaluation with a Holter monitor and to be evaluated by cardiology. He is also instructed to use 1 glucose tablets in case his blood sugar goes below 70 mg/dL. A comprehensive metabolic panel was ordered and we will consider starting an show if he has hypoproteinemia. Orders: - glucose 4 g chewable tablet; Chew 4 tablets (16 g) if needed for low blood sugar. - Comprehensive Metabolic Panel; Future Type 2 diabetes mellitus with stage 3a chronic kidney disease, without long-term current use of insulin (CMS/[facility]) Comments: Fingerstick fasting and 2 hours after a large meal Glucose tablet if fingerstick less than 70 mg/dL Orders: - POCT Glucose documented in this encounter Plan of Treatment Upcoming Encounters Date Type Department Care Team (Late st Contact Info) Description 10/11/2024 1:00 PM EDT Office Visit [facility] ADULT DENTAL [address] [place] [address] Shaka Velazquez, DMD [address] [place] [address] Scheduled Orders Name Type Priority Associated Diagnoses Orde r Schedule Comprehensive Metabolic Panel Lab Routine Hypoglycemia Expected: 09/29/2024 (Approximate), Expires: 09/29/2025 documented as of this encounter Procedures Procedure Name Priority Date/Time Associated Diagnosis Comments POCT GLUCOSE Routine 09/29/2024 2:38 PM EDT Type 2 diabetes mellitus with stage 3a chronic kidney disease, without long-term current use of insulin ([facility]) documented in this encounter Results * POCT Glucose (09/29/2024 2:38 PM EDT) Glucose Blood, POC 98 60 - 200 mg/dL QC Media Lot # [id number] Lot# Expiration Date 61 Blood Capillary blood specimen / Unknown 09/29/2024 2:38 PM EDT Daryn Crowder MD POINT OF CARE TEST ENTER/ED IT ORDERABLES Final Result documented in this encounter Visit Diagnoses Diagnosis Pre-syncope- Primary Syncope and collapse Hypoglycemia Hypoglycemia, unspecified Type 2 diabetes mellitus with stage 3a chronic kidney disease, without long-term current use of insulin ([facility]) documented in this encounter Additional Health Concerns Assessment Noted Time PHQ-9 Depression Total Score: 15 024 2:48 PM EDT documented as of this encounter Care Teams Production Recorder Relationship Specialty Start Date End Date Saul Barbour MD [address] [place] [phone] PCP - General Internal Medicine 10/27/19 Harshad Ho 08/13/23 documented as of this encounter
--- OUTSIDE RECORDS SUMMARY | 2024-09-29 15:35 | XMS_ITS | Encounter Summary ---
Author Organization [employer] Address [address] [facility] [address] [place] [address] Care Team Providers Care Manufacturing Shift Supervisor Name Role Phone Saul Barbour MD Primary Care Prov ider Encounter Details Date Type Department Care Team (Late st Contact Info) Description 11/12/2023 Telephone [facility] MEDICINE [address] [place] [address] Saul Barbour MD [address] [place] [address] Social History Tobacco Use Types Packs/Day Years [...] received a missed call from PCP however keno writer/runner does not see any notes, Please contact at [phone] documented in this encounter Plan of Treatment Upcoming Encounters Date Type Department Care Team (Late st Contact Info) Description 10/11/2024 1:00 PM EDT Office Visit [facility] ADULT DENTAL [address] [place] [address] Shaka Velazquez, IRENE [address] [place] [address] documented as of this encounter Visit Diagnoses Not on filedocumented in this encounter Additional Health Concerns Assessment Noted Time PHQ-9 Depression Total Score: 15 024 2:48 PM EDT documented as of this encounter Care Teams Manufacturing Shift Supervisor Relationship Specialty Start Date End Date Saul Barbour MD [address] [place] [address] PCP - General Internal Medicine 10/27/19 Harshad Ho 08/13/23 documented as of this encounter
--- OUTSIDE RECORDS SUMMARY | 2024-09-29 15:35 | XMS_ITS | Clinical Summary ---
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 Per instructio ns 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 (route: transderma l) Med Classific ation: Endocrine Trelegy Ellipta 200 mcg-62.5 mcg-25 mcg powder for inhalation 02-11 00:00: 00 09-01 00:00 :00 No [id number] Per instruc tions EVERY DAY Per instructio ns EVERY DAY (route: inhalation ) Med Classific ation: Respirato ry Therapy Agents azelastine 137 mcg (0.1 %) nasal spray aerosol 09-01 00:00: 00 Yes [id number] Per instruc tions 1 SPRAY INTRANASAL LY TWICE A DAY Per instructio ns 1 SPRAY INTRANASAL LY TWICE A DAY (route: nasal) Med Classific ation: Respirato ry Therapy Agents aspirin 81 mg tablet,olya yed release 09-01 00:00: 00 Yes [id number] 1 tablet DAILY 1 tablet DAILY (route: oral) Med Classific ation: Hematolog ical Agents Alcohol Prep Pads 09-01 00:00: 00 Yes [id number] Per instruc tions 3 TIMES DAILY Per instructio ns 3 TIMES DAILY (route: topical) Med Classific ation: Antisepti cs and Disinfect ants furosemide 40 mg tablet 02-28 00:00: 00 09-01 23:59 :00 No [id number] 1 tablet 2 TIMES DAILY 1 tablet 2 TIMES DAILY (route: oral) Med Classific ation: Cardiovas cular Therapy Agents lorazepam 1 mg tablet 09-01 00:00: 00 08-29 23:59 :00 No [id number] Per instruc tions THREE TIMES A DAY NEEDED Per instructio ns THREE TIMES A DAY NEEDED (route: oral) Med Classific ation: Central Nervous System Agents acetaminoph en ER 650 mg tablet,exte nded release 09-01 00:00: 00 08-29 23:59 :00 No [id number] 1 tablet EVERY 8 HOURS 1 tablet EVERY 8 HOURS (route: oral) Med Classific ation: Analgesic , Anti-infl ammatory or Antipyret ic quetiapine 50 mg tablet 09-01 00:00: 00 11-17 23:59 :00 No [id number] Per instruc tions EVERY DAY NEEDED Per instructio ns EVERY DAY NEEDED (route: oral) Med Classific ation: Central Nervous System Agents metoprolol tartrate 25 mg tablet 09-01 00:00: 00 Yes [id number] 1 tablet TWICE A DAY 1 tablet TWICE A DAY (route: oral) Med Classific ation: Cardiovas cular Therapy Agents amlodipine 10 mg tablet 09-01 00:00: 00 09-01 23:59 :00 No [id number] 1 tablet DAILY 1 tablet DAILY (route: oral) Med Classific ation: Cardiovas cular Therapy Agents atorvastati n 80 mg tablet 09-01 00:00: 00 Yes [id number] 1 tablet BEDTIME 1 tablet BEDTIME (route: oral) Med Classific ation: Cardiovas cular Therapy Agents bupropion HCl XL 300 mg 24 hr tablet, extended release 09-01 00:00: 00 03-30 23:59 :00 No [id number] 1 tablet DAILY 1 tablet DAILY (route: oral) Med Classific ation: Central Nervous System Agents fluoxetine 40 mg capsule 09-01 00:00: 00 Yes [id number] 2 capsule DAILY 2 capsule DAILY (route: oral) Med Classific ation: Central Nervous System Agents gabapentin 600 mg tablet 09-01 00:00: 00 Yes [id number] 1 tablet 2 TIMES DAILY 1 tablet 2 TIMES DAILY (route: oral) Med Classific ation: Central Nervous System Agents ipratropium 0.5 mg-albutero l 3 mg (2.5 mg base)/3 mL nebulizatio n soln 09-01 00:00: 00 Yes [id number] Per instruc tions NEEDED Per instructio ns NEEDED (route: inhalation ) Med Classific ation: Respirato ry Therapy Agents Jardiance 25 mg tablet 02-28 00:00: 00 06-23 23:59 :00 No [id number] 2 tablet DAILY 2 tablet DAILY (route: oral) Med Classific ation: Endocrine melatonin 10 mg capsule 09-01 00:00: 00 Yes [id number] 1 capsule BEDTIME 1 capsule BEDTIME (route: oral) Med Classific ation: Central Nervous System Agents metoprolol tartrate 25 mg tablet 02-28 00:00: 00 09-01 00:00 :00 No [id number] 1 tablet 2 TIMES DAILY 1 tablet 2 TIMES DAILY (route: oral) Med Classific ation: Cardiovas cular Therapy Agents prednisone 5 mg tablet 02-28 00:00: 00 09-01 00:00 :00 No [id number] 1 tablet DAILY 1 tablet DAILY (route: oral) Med Classific ation: Endocrine quetiapine 100 mg tablet 09-01 00:00: 00 Yes [id number] 1 tablet BEDTIME 1 tablet BEDTIME (route: oral) Med Classific ation: Central Nervous System Agents quetiapine 50 mg tablet 09-01 00:00: 00 11-17 23:59 :00 No [id number] 1 tablet DAILY 1 tablet DAILY (route: oral) Med Classific ation: Central Nervous System Agents sulindac 150 mg tablet 02-28 00:00: 00 09-01 00:00 :00 No [id number] 1 tablet 2 TIMES DAILY 1 tablet 2 TIMES DAILY (route: oral) Med Classific ation: Analgesic , Anti-infl ammatory or Antipyret ic tadalafil 10 mg tablet 09-01 00:00: 00 Yes [id number] 1 tablet DAILY 1 tablet DAILY (route: oral) Med Classific ation: Drugs to treat Erectile Dysfuncti on terazosin 5 mg capsule 09-01 00:00: 00 Yes [id number] 1 capsule BEDTIME 1 capsule BEDTIME (route: oral) Med Classific ation: Cardiovas cular Therapy Agents trazodone 50 mg tablet 09-01 00:00: 00 Yes [id number] 1 tablet BEDTIME 1 tablet BEDTIME (route: oral) Med Classific ation: Central Nervous System Agents Trelegy Ellipta 200 mcg-62.5 mcg-25 mcg powder for inhalation 09-01 00:00: 00 Yes [id number] 2 inhalat ion DAILY 2 inhalation DAILY (route: inhalation ) Med Classific ation: Respirato ry Therapy Agents Vitamin D3 25 mcg (1,000 unit) capsule 09-01 00:00: 00 Yes [id number] 1 capsule DAILY 1 capsule DAILY (route: oral) Med Classific ation: Electroly te Balance-N utritiona l Products Wellbutrin XL 150 mg 24 hr tablet, extended release 09-01 00:00: 00 Yes [id number] 1 tablet DAILY 1 tablet DAILY (route: oral) Med Classific ation: Central Nervous System Agents sulindac 150 mg tablet 2022-06 00:00: 00 09-01 00:00 :00 No [id number] 150 mg 2 TIMES DAILY 150 mg 2 TIMES DAILY (route: oral) Med Classific ation: Analgesic , Anti-infl ammatory or Antipyret ic metformin 850 mg tablet 06-28 00:00: 00 09-01 23:59 :00 No [id number] 1 tablet 2 TIMES DAILY 1 tablet 2 TIMES DAILY (route: oral) Med Classific ation: Endocrine amlodipine 5 mg tablet 09-01 00:00: 00 Yes [id number] 1 tablet DAILY 1 tablet DAILY (route: oral) Med Classific ation: Cardiovas cular Therapy Agents Fiber (with aspartame) 3.4 gram/5.8 gram oral powder 09-01 00:00: 00 Yes [id number] 5 g DAILY 5 g DAILY (route: oral) Med Classific ation: Gastroint estinal Therapy Agents furosemide 20 mg tablet 09-01 00:00: 00 Yes [id number] 1 tablet DAILY 1 tablet DAILY (route: oral) Med Classific ation: Cardiovas cular Therapy Agents Abilify 5 mg tablet 11-17 00:00: 00 Yes [id number] 1 tablet DAILY 1 tablet DAILY (route: oral) Med Classific ation: Central Nervous System Agents potassium chloride ER 10 mEq tablet,exte nded release 01-19 00:00: 00 01-20 23:59 :00 No [id number] 1 tablet DAILY 1 tablet DAILY (route: oral) Med Classific ation: Electroly te Balance-N utritiona l Products tizanidine 2 mg tablet 01-19 00:00: 00 Yes [id number] 1 tablet EVERY 8 HOURS 1 tablet EVERY 8 HOURS (route: oral) Med Classific ation: Locomotor System Creon 24,000-76,0 00-120,000 unit capsule,del ayed release 2023-06 0-24 00:00: 00 Yes [id number] 1 capsule 3 TIMES DAILY 1 capsule 3 TIMES DAILY (route: oral) Med Classific ation: Gastroint estinal Therapy Agents dicyclomine 10 mg capsule 2023-06 0-24 00:00: 00 Yes [id number] 1 capsule 4 TIMES DAILY 1 capsule 4 TIMES DAILY (route: oral) Med Classific ation: Gastroint estinal Therapy Agents tolterodine ER 4 mg capsule,ext ended release 24 hr 2023-06 0-24 00:00: 00 Yes [id number] 1 capsule DAILY 1 capsule DAILY (route: oral) Med Classific ation: Genitouri nary Therapy lorazepam 1 mg tablet 3 00:00: 00 Yes FOR ANXIETY 1 tablet 3 TIMES DAILY 1 tablet 3 TIMES DAILY (route: oral) Med Classific ation: Central Nervous System Agents acetaminoph en ER 650 mg tablet,exte nded release 3 00:00: 00 Yes PAIN 1 tablet EVERY 8 HOURS 1 tablet EVERY 8 HOURS (route: oral) Med Classific ation: Analgesic , Anti-infl ammatory or Antipyret ic Vital Signs Vital Name Observation Time Observation Value Commen ts Temperature 2024-09-20 17:20:00.000 97.7 [degF] Temperature 2024-08-31 14:59:00.000 97.7 [degF] Pulse 2024-09-20 17:20:00.000 85 /min Pulse 2024-09-07 15:26:00.000 100 /min Pulse 2024-08-31 14:59:00.000 61 /min Respirations 2024-09-20 17:20:00.000 18 /min Respirations 2024-09-07 15:26:00.000 18 /min Respirations 2024-08-31 14:59:00.000 18 /min Systolic Blood Pressure 2024-09-20 17:20:00.000 140 mm [Hg] Systolic Blood Pressure 2024-09-07 15:26:00.000 108 mm [Hg] Systolic Blood Pressure 2024-08-31 14:59:00.000 102 mm [Hg] Diastolic Blood Pressure 2024-09-20 17:20:00.000 86 mm [Hg] Diastolic Blood Pressure 2024-09-07 15:26:00.000 83 mm [Hg] Diastolic Blood Pressure 2024-08-31 14:59:00.000 77 mm [Hg] Plan of Treatment Planned Activity [...] HEALTH.] Future Scheduled Test SKILLED NU RSE TO [...] WITH EXACERBATION FOR EARLY INTERVENTION OF COMPLICATIONS WEEKLY. [code = SKILLED NURSE FOR O/A OF GENERAL HEALTH STATUS OF PAIN, CARDIAC, RESPIRATORY, GASTROINTESTINAL, GENITOURINARY, SKIN, NEUROLOGIC, ENDOCRINE SYSTEMS TO IDENTIFY CHANGES ASSOCIATED WITH EXACERBATION FOR EARLY INTERVENTION OF COMPLICATIONS WEEKLY.] Future Scheduled Test SKILLED NU RSE FOR [...] INTERVENTION.] Future Scheduled Test SKILLED NU RSE FOR O/A AND TEACHING OF DIABETIC MANAGEMENT INCLUDING BLOOD SUGAR MONITORING/USE OF GLUCOMETER, DIABETIC DIET, LOWER EXTREMITY SKIN INSPECTION, PROPER SKIN/FOOT CARE, AND SIGNS AND SYMPTOMS HYPO/HYPERGLYCEMIA TO REPORT. [code = SKILLED NURSE FOR O/A AND TEACHING OF DIABETIC MANAGEMENT INCLUDING BLOOD SUGAR MONITORING/USE OF GLUCOMETER, DIABETIC DIET, LOWER EXTREMITY SKIN INSPECTION, PROPER SKIN/FOOT CARE, AND SIGNS AND SYMPTOMS HYPO/HYPERGLYCEMIA TO REPORT.] Future Scheduled Test SKILLED NU RSE FOR O/A, TEACHING AND SELF-MANAGEMENT RELATED TO HEART FAILURE. INSTRUCT PATIENT/CAREGIVER ON SIGNS AND SYMPTOMS OF EXACERBATION TO REPORT. [code = SKILLED NURSE FOR O/A, TEACHING AND SELF-MANAGEMENT RELATED TO HEART FAILURE. INSTRUCT PATIENT/CAREGIVER ON SIGNS AND SYMPTOMS OF EXACERBATION TO REPORT. ] Future Scheduled Test SKILLED NU RSE FOR OBSERVATION AND ASSESSMENT OF PATIENTS PAIN LEVEL AND EFFECTIVENESS OF PAIN MANAGEMENT REGIMEN. SKILLED NURSE TO INSTRUCT PATIENT/CAREGIVER REGARDING PHARMACOLOGIC AND NON-PHARMACOLOGIC PAIN CONTROL MEASURES. SKILLED NURSE TO REPORT TO PHYSICIAN IF PAIN IS UNCONTROLLED WITH CURRENT PAIN MANAGEMENT REGIMEN. [code = SKILLED NURSE FOR OBSERVATION AND ASSESSMENT OF PATIENTS PAIN LEVEL AND EFFECTIVENESS OF PAIN MANAGEMENT REGIMEN. SKILLED NURSE TO INSTRUCT PATIENT/CAREGIVER REGARDING PHARMACOLOGIC AND NON-PHARMACOLOGIC PAIN CONTROL MEASURES. SKILLED NURSE TO REPORT TO PHYSICIAN IF PAIN IS UNCONTROLLED WITH CURRENT PAIN MANAGEMENT REGIMEN.] Future Scheduled Test SKILLED NU RSE TO REVIEW PATIENT MEDICATIONS. INSTRUCT PATIENT/CAREGIVER ON MONITORING OF EFFECTIVENESS, ADVERSE DRUG REACTIONS, SIDE EFFECTS OF ALL MEDICATIONS (PRESCRIPTION/-OTC), AND HOW AND WHEN TO REPORT PROBLEMS. [code = SKILLED NURSE TO REVIEW PATIENT MEDICATIONS. INSTRUCT PATIENT/CAREGIVER ON MONITORING OF EFFECTIVENESS, ADVERSE DRUG REACTIONS, SIDE EFFECTS OF ALL MEDICATIONS (PRESCRIPTION/-OTC), AND HOW AND WHEN TO REPORT PROBLEMS. ] Future Scheduled Test SKILLED NU RSE TO [...] SERVICES.] Future Scheduled Test SKILLED NU RSE WILL MAINTAIN SITUATIONAL AWARENESS FOR SAFETY AND WILL NOTIFY CLINICAL MENTAL MEASUREMENTS TEACHER AND PHYSICIAN/PROVIDER WITH ANY CHANGE IN CONDITION. [code = SKILLED NURSE WILL MAINTAIN SITUATIONAL AWARENESS FOR SAFETY AND WILL NOTIFY CLINICAL MENTAL MEASUREMENTS TEACHER AND PHYSICIAN/PROVIDER WITH ANY CHANGE IN CONDITION.] Goal 2023-10-28 Patient Goal - NO HOSPITALIZ ATION Goal 2023-12-28 Patient Goal - NO HOSPITALIZ ATION Goal 2024-02-24 Patient Goal - NO HOSPITALIZ ATION Goal 2024-04-27 Patient Goal - STAY OUT OF [facility] Goal 2024-06-23 Patient Goal - STAY OUT OF [facility] Goal 2024-08-25 Patient Goal - STAY OUT OF [facility] Goal Patient Goal - STAY OUT OF [facility] Goal Provider Goal - A PLAN OF CARE WILL BE ESTABLISHED THAT MEETS PATIENT'S SENIOR LIVING NEEDS AND INCLUDES PATIENT GOAL FOR HOME HEALTH. Goal Provider Goal - ALTERED MENTAL/BEHAVIORAL STATUS [...] PERIOD. Goal Provider Goal - PATIENT/CAREGIVER WILL VERBALIZE/DEMONSTRATE KNOWLEDGE OF DIABETIC MANAGEMENT. CHANGES IN DIABETIC STATUS WILL BE IDENTIFIED AND REPORTED TO PHYSICIAN FOR PROMPT INTERVENTION THROUGHOUT THE CERTIFICATION PERIOD. Goal Provider Goal - PATIENT/CAREGIVER WILL VERBALIZE/DEMONSTRATE KNOWLEDGE AND MANAGEMENT OF HEART FAILURE DISEASE PROCESS BY END OF EPISODE. Goal Provider Goal - PATIENT/CAREGIVER WILL DEMONSTRATE UNDERSTANDING OF PHARMACOLOGIC AND NONPHARMACOLOGIC PAIN CONTROL MEASURES AND PATIENT WILL HAVE IMPROVEMENT IN PAIN INTERFERING WITH ACTIVITY EVIDENCED BY PAIN CONTROLLED AT LEVEL OF 5 OR LESS BY END OF CERTIFICATION PERIOD. Goal Provider Goal - PATIENT/CAREGIVER WILL VERBALIZE UNDERSTANDING OF EDUCATION PROVIDED ON MEDICATIONS BY THE END OF THE CERTIFICATION PERIOD. Goal Provider Goal - PSYCHOSOCIAL NEEDS WILL BE IDENTIFIED AND PLAN IMPLEMENTED TO MINIMIZE RISK THROUGHOUT CERTIFICATION PERIOD. Goal Provider Goal - PATIENT WILL REMAIN SAFE IN THE COMMUNITY AND WILL BE FREE OF DANGER TO SELF AND OTHERS THROUGHOUT THE CERTIFICATION PERIOD. Progress Notes Progress Notes <paragraph>[Visit Date: 2024 by LUIS OGDEN RN]:</paragraph><paragraph>124 09/26 BS 124 THEN LATER 55 PASSED OUT NEUROLOGIST OFFICE BS 91 DURING VISIT</paragraph> Encounters Start Date/Time End Date/Time Encounter Type Admission Type Attending [facility] Facility Care Department Encounter ID Discharge Date Discharge Status Discharge Condition Discharge Reason Percent Goals Met 2023-09-02 00:00:00 2024-10-25 00:00:00 [facility] [id number] 43.33
--- OUTSIDE RECORDS SUMMARY | 2024-09-29 15:35 | XMS_ITS | Encounter Summary ---
Author Organization [employer] Address [address] [place] [address] Care Team Providers Care Theoretical Physicist Name Role Phone Saul Barbour MD Primary Care Prov ider Encounter Details Date Type Department Care Team (Late st Contact Info) Description 11/12/2023 Telephone [facility] MEDICINE [address] [place] [address] Saul Barbour MD [address] [place] [address] Social History Tobacco Use Types Packs/Day Years [...] 10/11/2024 1:00 PM EDT Office Visit [facility] ADULT D[facility]AL [address] [place] [address] Shaka Velazquez, DMD [address] [place] [address] documented as of this encounter Visit Diagnoses Not on filedocumented in this encounter Additional Health Concerns Assessment Noted Time PHQ-9 Depression Total Score: 15 024 2:48 PM EDT documented as of this encounter Care Teams Theoretical Physicist Relationship Specialty Start Date End Date Saul Barbour MD [address] [place] [address] PCP - General Internal Medicine 10/27/19 Harshad Ho 08/13/23 documented as of this encounter
--- OUTSIDE RECORDS SUMMARY | 2024-09-29 15:35 | XMS_ITS | Encounter Summary ---
Author Organization [employer] Address [address] [facility] [address] [place] [address] Care Team Providers Care Computer Video Game Designer Name Role Phone Saul Barbour MD Primary Care Prov ider Encounter Details Date Type Department Care Team (Latest Contact Info) Description 09/29/2024 Travel Social History Tobacco Use Types Packs/Day Years [...] 10/11/2024 1:00 PM EDT Office Visit [facility] ADULT DENTAL [address] [place] [address] Shaka Velazquez, IRENE [address] [place] [address] documented as of this encounter Visit Diagnoses Not on filedocumented in this encounter Additional Health Concerns Assessment Noted Time PHQ-9 Depression Total Score: 15 024 2:48 PM EDT documented as of this encounter Care Teams Computer Video Game Designer Relationship Specialty Start Date End Date Saul Barbour MD [address] [place] [address] PCP - General Internal Medicine 10/27/19 Harshad Ho 08/13/23 documented as of this encounter
--- OUTSIDE RECORDS SUMMARY | 2024-09-29 15:35 | XMS_ITS | Encounter Summary ---
Author Organization [employer] Address [address] [place] [address] Care Team Providers Care Cigar Packer And Sorter Name Role Phone Saul Barbour MD Primary Care Prov ider Encounter Details Date Type Department Care Team (Late st Contact Info) Description 12/13/2023 Telephone [facility] MEDICINE [address] [place] [address] Saul Barbour MD [address] [place] [address] Social History Tobacco Use Types Packs/Day Years [...] Description 10/11/2024 1:00 PM EDT Office Visit [facility] ADULT D[facility]AL [address] [place] [address] Shaka Velazquez, DMD [address] [place] [address] documented as of this encounter Visit Diagnoses Not on filedocumented in this encounter Additional Health Concerns Assessment Noted Time PHQ-9 Depression Total Score: 15 024 2:48 PM EDT documented as of this encounter Care Teams Cigar Packer And Sorter Relationship Specialty Start Date End Date Saul Barbour MD [address] [place] [address] PCP - General Internal Medicine 10/27/19 Harshad Ho 08/13/23 documented as of this encounter
--- OUTSIDE RECORDS SUMMARY | 2024-09-29 15:35 | XMS_ITS | Continuity of Care Document ---
Author Organization [facility] ter Address [address] [place] [address]- Care Team Providers Care Jitney Driver Name Role Phone Chacorta Spicer MD, Saul Primary Care Phys [id number] Date[facility]s): 09/26/24 - 09/26/[address] [address]- Discharge Disposition: A-D/C Home Attending Physician: Rena Saleem DO Admitting Physician: Rena Saleem DO Referring Physician: Not on Staff, Referring MD Encounter Type: Disch ES Allergies, Adverse Reactions, Alerts Substance Criticality Severity Reaction Reaction Severity Status Mold upper resp congestion Active Pollen sneezing Active Immunizations Given and Recorded Vaccine Date Status Refusal Reason tetanus/diphtheria/pertussis, acel(Tdap) 01/30/23 Given tetanus/diphtheria/pertussis, acel(Tdap) 02/17/18 Given tetanus/diphtheria/pertussis, acel(Tdap) 02/03/16 Recorded pneumococcal 20-valent conjugate vaccine 12/26/22 Recorded [id number] bivalent booster vax 04/26/22 Recorded influenza virus vaccine, inactivated 03/05/22 Federico rded influenza virus vaccine, inactivated 05/07/21 Federico rded influenza virus vaccine, inactivated 02/14/19 Federico rded influenza virus vaccine, inactivated 02/12/18 Federico rded influenza virus vaccine, inactivated 01/28/17 Federico rded SARS-CoV-2 (COVID-19) mRNA-1273 vaccine 05/26/21 R ecorded SARS-CoV-2 (COVID-19) mRNA-1273 vaccine 10/23/20 R ecorded SARS-CoV-2 (COVID-19) mRNA-1273 vaccine 09/25/20 R ecorded zoster vaccine, inactivated 05/07/21 Recorded zoster vaccine, inactivated 04/19/20 Recorded zoster vaccine, inactivated 07/13/18 Recorded hepatitis B adult vaccine 01/24/18 Recorded hepatitis B adult vaccine 11/18/16 Recorded pneumococcal 23-valent vaccine 03/24/15 Given Problem List Condition Confirmation Course Effective Dates Status H ealth Status Informant Alcohol withdrawal seizure Confirmed Active Gastritis, alcoholic Confirmed Active COPD with asthma Confirmed Active Autonomic neuropathy due to type 2 diabetes mellitus Confirmed Active HTN (hypertension), benign Confirmed Active BPH (benign prostatic hyperplasia) Confirmed Active Chest pain Confirmed Active Chronic back pain Confirmed Active Chronic diastolic heart failure Confirmed Active CKD (chronic kidney disease) stage 3, GFR 30-59 ml/min Confirmed Active CKD stage 3 secondary to diabetes Confirmed Active Environmental allergies Confirmed Active Hyperlipidemia Confirmed Active Hypokalemia Confirmed Active Leukocytosis Confirmed Active Mixed hyperlipidemia Confirmed Active Cigarette nicotine dependence Confirmed Active VIRAJ on CPAP Confirmed Active Laceration of left arm with complication Confirmed Active Paroxysmal A-fib Confirmed Active Right lower quadrant pain Confirmed Active Vital Signs Most recent to oldest [Reference Range]: 1 2 3 Oxygen Saturation [94-100 %] 99 % (09/26/24 8:20 PM) 99 % (09/26/24 6:25 PM) 98 % (09/26/24 4:28 PM) Pulse Rate [55-90 bpm] 52 bpm *L* (09/26/24 8:20 PM) 45 bpm *L* (09/26/24 6:25 PM) 47 bpm *L* (09/26/24 4:28 PM) Blood Pressure [90-138/55-84 mm Hg] 114/72mm Hg (09/26/24 8:20 PM) 142/78mm Hg *H* (09/26/24 6:25 PM) 124/73mm Hg (09/26/24 4:28 PM) Respiratory Rate [16-30 br/min] 12 br/min *L* (09/26/24 8:20 PM) 17 br/min (09/26/24 6:25 PM) 18 br/min (09/26/24 4:28 PM) Temperature [96.8-100.4 DegF] 97.5 DegF (09/26/24 11:43 AM) Mode of Delivery (Oxygen) Room air (09/26/24 8:20 PM) Room air (09/26/24 6:25 PM) Room air (09/26/24 4:28 PM) Temperature Route Oral (09/26/24 11:43 AM) Social History Social History Type Response Tobacco Use: 4 or less cigar ettes(less than 1/4 pack)/day in last 30 days. Sex Sex Representation Male (finding) EKG study * Event Display: ECG 12-Lead Authored Date: Please click on pdf link to open report * Event Display: ECG 12-Lead Authored Date: Ventricular Rate: 51 BPM Atrial Rate: 51 BPM P-R Interval: 188 ms QRS Duration: 82 ms Q-T Interval: 442 ms QTC Calculation(Bazett): 407 ms P Ackworth: 46 degrees R Ackworth: 44 degrees T Ackworth: 95 degrees Sinus bradycardia Nonspecific ST and T wave abnormality Abnormal ECG When compared with ECG of 11-Sep-2023 16:28, Nonspecific T wave abnormality no longer evident in Inferior leads T wave inversion no longer evident in Anterior leads QT has shortened Confirmed by Jaime Tang ([id number]) on 09/26/2024 12:47:56 PM Page: Jaime Tang Patient Care team information Care Team Personnel Name: Josie Fortune RN Position: [facility] RN Member Role: Primary Care Nurse Name: Christiano Paul Position: [facility] Outreach Member Role: Lifetime Consulting Physician Name: Jacquelyn Davis RN Position: [facility] SN RN Member Role: Primary Care Nurse Name: Luis Guerrero RN Position: [facility] RN Member Role: Primary Care Nurse Name: Sarina Miranda RN Position: [facility] RN Member Role: Primary Care Nurse Name: Shade Anand RN Position: [facility] ED RN W/OE and Tasks Member Role: Primary Care Nurse Name: Jaime Aguilera RN Position: [facility] RN Member Role: Primary Care Nurse Name: Rhea Espitia RN Position: [facility] RN Member Role: Primary Care Nurse Name: Trina Terrell RN Position: [facility] RN Member Role: Primary Care Nurse Name: Saul Barbour MD Position: [facility] Outreach Member Role: PCP Address: [address] [place] [address]- [place] Telecom: Name: Kimmy Burton RN Position: [facility] RN Supv Member Role: Primary Care Nurse Name: Dorothy Franco RN Position: [facility] RN Member Role: Primary Care Nurse Name: Daphne Valdes RN Position: [facility] RN Member Role: Primary Care Nurse Name: Cady Villar RN Position: [facility] RN Member Role: Primary Care Nurse Name: Paris Barriga RN Position: [facility] Rad RN Member Role: Primary Care Nurse Name: Vincent Lopez RN Position: [facility] RN Member Role: Primary Care Nurse Name: Amaya Ang RN Position: [facility] SN RN Member Role: Primary Care Nurse Name: Rhea Uriostegui RN Position: [facility] RN Supv Member Role: Primary Care Nurse Name: Keysha Charles NP Position: [facility] Associate Professional Member Role: Primary Care Nurse Name: Cesar Cohn RN Position: [facility] RN Member Role: Primary Care Nurse Name: iBll Lal LPN Position: [facility] RN Member Role: Primary Care Nurse Name: Ermelinda Barr RN Position: [facility] RN Member Role: Primary Care Nurse Name: Av Price RN Position: [facility] RN Supv Member Role: Primary Care Nurse Name: Josette Catherine RN Position: [facility] Ball Assembler Member Role: Primary Care Nurse Name: Sultana Morris RN Position: [facility] RN Member Role: Primary Care Nurse Name: Kathy Pardo RN Position: [facility] RN Member Role: Primary Care Nurse Name: Yusuf Carrillo RN Position: [facility] RN Member Role: Primary Care Nurse Name: Emily Ayala RN Position: [facility] RN Member Role: Primary Care Nurse Name: Ml Cartagena RN Position: [facility] RN Member Role: Primary Care Nurse Name: Smitha Hess RN Position: [facility] RN Member Role: Primary Care Nurse Name: Verna Rutledge RN Position: [facility] RN Member Role: Primary Care Nurse Name: Rhea Osorio RN Position: [facility] RN Member Role: Primary Care Nurse Name: Akosua Marion RN Position: [facility] SN RN Member Role: Primary Care Nurse Name: Hannah Mosher RN Position: [facility] RN Member Role: Primary Care Nurse Name: Riki Diaz RN Position: [facility] RN Member Role: Primary Care Nurse Name: Marianne Hanks RN Position: [facility] AMB Nurse Member Role: Primary Care Nurse Name: Isha Cheney RN Position: [facility] RN Member Role: Primary Care Nurse Name: Raymundo Head RN Position: [facility] RN Member Role: Primary Care Nurse Name: Navneet Guajardo RN Position: [facility] SN RN Member Role: Primary Care Nurse Name: Tin Harrington RN Position: [facility] RN Member Role: Primary Care Nurse Name: Destiny Delgado RN Position: [facility] RN Member Role: Primary Care Nurse Name: Estela Magallanes RN Position: [facility] ED RN W/OE and Tasks Member Role: Primary Care Nurse Name: Rosemarie Sanabria RN Position: [facility] AMB Nurse Member Role: Primary Care Nurse Name: Destiny Gordon RN Position: [facility] RN Member Role: Primary Care Nurse Name: Feli Carter RN Position: [facility] RN Member Role: Primary Care Nurse Name: Jaime Phillips RN Position: [facility] RN Member Role: Primary Care Nurse Name: Sharlene Joshua RN Position: [facility] OB RN Member Role: Primary Care Nurse Name: Jayce Galindo RN Position: [facility] ED RN W/OE and Tasks Member Role: Primary Care Nurse Name: Marcia Yun RN Position: [facility] RN Member Role: Primary Care Nurse Name: Danika Eugene RN Position: [facility] RN Member Role: Primary Care Nurse Name: Varsha Soria NP Position: Reference Physician Member Role: Primary Care Nurse Address: [address] [place] [address] [place] [id number] [place] [address] Telecom: Name: Kimmy Perea RN Position: [facility] RN Member Role: Primary Care Nurse Name: Bri Leung LPN Position: [facility] RN Member Role: Primary Care Nurse Name: Deana Salinas RN Position: [facility] RN Member Role: Primary Care Nurse Name: Kimmy Millan RN Position: [facility] SN Stabber Member Role: Primary Care Nurse Name: Sandee Ayoub RN Position: [facility] RN Member Role: Primary Care Nurse Name: Buster Trinidad RN Position: [facility] SN RN Member Role: Primary Care Nurse Name: Jarrod Aguillon RN Position: [facility] RN Member Role: Primary Care Nurse Name: Jaylene Gould RN Position: [facility] AMB Nurse Member Role: Primary Care Nurse Name: Vladimir Durand MD Position: [facility] Outreach Member Role: Lifetime Consulting Physician Address: [address] [facility] [place] [address]- Telecom: Name: Gm RNMarlen Position: [facility] RN Member Role: Primary Care Nurse Name: Joann Soto RN Position: [facility] RN Member Role: Primary Care Nurse Name: Zelda Beckett RN Position: [facility] RN Member Role: Primary Care Nurse Name: Carmella Delgado RN Position: [facility] RN Member Role: Primary Care Nurse Name: Caterina John RN Position: [facility] RN Member Role: Primary Care Nurse Name: Bri Beckford RN Position: [facility] DEENA Office Staff Member Role: Primary Care Nurse Name: Julia Goins RN Position: [facility] AMB Nurse Member Role: Primary Care Nurse Name: Melanie Garay RN Position: [facility] RN Member Role: Primary Care Nurse Name: Rachid Ignacio RN Position: [facility] RN Member Role: Primary Care Nurse Name: Lilia Andersen Position: [facility] RN Member Role: Primary Care Nurse Name: Morena Richard RN Position: [facility] RN Member Role: Primary Care Nurse Name: Sultana Nova RN Position: [facility] SN RN Member Role: Primary Care Nurse Name: Ananth Prince RN Position: [facility] SN RN Member Role: Primary Care Nurse Name: Katina Almonte RN Position: [facility] RN Member Role: Primary Care Nurse Care Team Related Persons Name: DAVID VILLANUEVA Name: NIRAJRINA GARCIAS Insurance Providers Guarantor name: SHADE VILLANUEVA Health Plan Information #: 1 Payer: [employer] Member Number: [id number] Policy Number: NA Group Number: [facility] Health Plan Information #: 2 Payer: [facility] [employer] [employer] Member Number: [id number] Policy Number: NA Group Number: NA
--- OUTSIDE RECORDS SUMMARY | 2024-09-29 15:35 | XMS_ITS | Encounter Summary ---
Author Organization [employer] Address [address] [facility] 7t [place] [address] Care Team Providers Care Department Secretary Name Role Phone Saul Barbour MD Primary Care Prov ider Reason for Visit * Reason Comments Med Refill Encounter Details Date Type Department Care Team ([facility] st Contact Info) Description 11/18/2023 Refill [facility] MEDICINE [address] [place] [address] Saul Barbour MD [address] [place] [address] Social History Tobacco Use Types Packs/Day Years [...] 1:00 PM EDT Office Visit [facility] ADULT DENTAL [address] [place] [address] Shaka Velazquez, IRENE [address] [place] [address] documented as of this encounter Visit Diagnoses Not on filedocumented in this encounter Additional Health Concerns Assessment Noted Time PHQ-9 Depression Total Score: 15 024 2:48 PM EDT documented as of this encounter Care Teams Department Secretary Relationship Specialty Start Date End Date Saul Barbour MD [address] [place] [address] PCP - General Internal Medicine 10/27/19 [facility] 08/13/23 documented as of this encounter
--- OUTSIDE RECORDS SUMMARY | 2024-09-29 15:35 | XMS_ITS | Encounter Summary ---
Author Organization [employer] Address [address] [facility] 7t [place] [address] Care Team Providers Care Radiological Health Specialist Name Role Phone Saul Barbour MD Primary Care Prov ider Reason for Visit * Reason Onset Date Comments FYI 07/28/2023 Encounter Details Date Type Department Care Team ([facility] Contact Info) Description 07/28/2023 Telephone [facility] CHC MED & PEDS [address] [place] [address] Saul Barbour MD [address] [place] [address] Social History Tobacco Use Types Packs/Day Years [...] states that he reported this to his [facility] nurse, Christos, and was not advised to [...] one hour. TC placed again to [facility]. Asked for recent records and was told [facility] today[facility] LM to call [...] Gave him the nurses' fax number at [facility] to send notes and our call back number. Routing note to PCP so he is aware. Tc from christos with harshad lamberto calling to advise provider pt has been having low blood pressure and low sugars for the past week. Pt asl ohad a fall this morning. Pt is asymptomatic. Any questions, please contact christos at [phone] * Telephone Encounter - Deidra Simmons - 07/28/2023 10:14 AM EST Tc from christos with harshad ho calling to advise provider pt has been having low blood pressure and low sugars for the past week. Pt asl ohad a fall this morning. Pt is asymptomatic. Any questions, please contact christos at [phone] documented in this encounter Plan of Treatment Upcoming Encounters Date Type Department Care Team ([facility] st Contact Info) Description 10/11/2024 1:00 PM EDT Office Visit [facility] ADULT DENTAL [address] [place] [address] Shaka Velazquez, DMD [address] [place] [address] documented as of this encounter Visit Diagnoses Not on filedocumented in this encounter Additional Health Concerns Assessment Noted Time PHQ-9 Depression Total Score: 18 024 10:06 AM EST documented as of this encounter Care Teams Radiological Health Specialist Relationship Specialty Start Date End Date Saul Barbour MD [address] [place] [address] PCP - General Internal Medicine 10/27/19 [facility] 08/13/23 documented as of this encounter
--- OUTSIDE RECORDS SUMMARY | 2024-09-29 15:35 | XMS_ITS | Encounter Summary ---
Author Organization [employer] Address [address] [facility] [address] 7t [place] [address] Care Team Providers Care Ice Skating Teacher Name Role Phone Saul Barbour MD Primary Care Prov ider Encounter Details Date Type Department Care Team ([facility] st Contact Info) Description 05/19/2024 Orders Only [facility] CHC MED & PEDS [address] [place], [place] [phone] ProviderAndrea MD Social History Tobacco Use Types [...] Description 10/11/2024 1:00 PM EDT Office Visit [facility] CHC ADULT DENTAL [address] [place], [place] [phone] Shaka Velazquez, DMD [address] [place], [place] [phone] documented as of this encounter Procedures Procedure [...] documented as of this encounter Care Teams Ice Skating Teacher Relationship Specialty Start Date End Date Saul Barbour MD [address] [place] [address] PCP - General Internal Medicine 10/27/19 [facility] 08/13/23 documented as of this encounter
--- OUTSIDE RECORDS SUMMARY | 2024-09-29 15:35 | XMS_ITS | Encounter Summary ---
Author Organization [employer] Address [address] [facility] 7t [place] [address] Care Team Providers Care Evaporator Supervisor Name Role Phone Saul Barbour MD Primary Care Prov ider Reason for Visit * Reason Onset Date Comments Med Refill 07/13/2022 Encounter Details Date Type Department Care Team ([facility] st Contact Info) Description 07/13/2022 Telephone [facility] MEDICINE [address] [place] [address] Saul Barbour MD [address] [facility] [address] [place] [address] Med Refill Social History Tobacco Use Types [...] Upcoming Encounters Date Type Department Care Team ([facility] st Contact Info) Description 10/11/2024 1:00 PM EDT Office Visit [facility] ADULT DENTAL [address] [place] [address] Shaka Velazquez, IRENE [address] [place] [address] documented as of this encounter Visit Diagnoses Not on filedocumented in this encounter Additional Health Concerns Assessment Noted Time PHQ-9 Depression Total Score: 26 1216/ 022 10:52 AM EST documented as of this encounter Care Teams Evaporator Supervisor Relationship Specialty Start Date End Date Saul Barbour MD [address] [place] [address] PCP - General Internal Medicine 10/27/19 [facility] 08/13/23 documented as of this encounter
--- OUTSIDE RECORDS SUMMARY | 2024-09-29 15:35 | XMS_ITS | Encounter Summary ---
Author Organization [employer] Address [address] [facility] 7t [place] [address] Care Team Providers Care Web Press Operator Assistant Name Role Phone Saul Barbour MD Primary Care Prov ider Reason for Visit * Reason Onset Date Comments Medication Question 07/28/2022 Encounter Details Date Type Department Care Team ([facility] st Contact Info) Description 07/28/[address] [facility] MEDICINE [address] [place] [address] Saul Barbour MD [address] [facility] [place] [address] Medication Question Social History Tobacco Use Types [...] Neal LPN - 08/24/2022 8:51 AM EDT FINANCIAL ANALYSIS ADVISOR HOANG BERNABE MESSAGE BELOW * Telephone Encounter - Thomas Boothe - 07/28/2022 4:46 PM EST Tc from doug with [facility] requesting a call back regarding medication Please contact doug at [phone] documented in this encounter Plan of Treatment Upcoming Encounters Date Type Department Care Team ([facility] st Contact Info) Description 10/11/2024 1:00 PM EDT Office Visit [facility] ADULT DENTAL [address] [place], [place] [phone] Shaka Velazquez, DMD [address] [place], [place] [phone] documented as of this encounter Visit Diagnoses Not on filedocumented in this encounter Additional Health Concerns Assessment Noted Time PHQ-9 Depression Total Score: 26 05/22/ 022 10:52 AM EST documented as of this encounter Care Teams Web Press Operator Assistant Relationship Specialty Start Date End Date Saul Barbour MD [address] [place] [address] PCP - General Internal Medicine 10/27/19 [facility]ad Ho 08/13/23 documented as of this encounter
--- OUTSIDE RECORDS SUMMARY | 2024-09-29 15:35 | XMS_ITS | Encounter Summary ---
Author Organization [employer] Address [address] [facility] 7 [place] [address] Care Team Providers Care Mill Operator Head Name Role Phone Saul Barbour MD Primary Care Prov ider Reason for Visit * Reason Comments Med Change Request Encounter Details Date Type Department Care Team ([facility] Contact Info) Description 10/03/2022 Refill [facility] CHC MED & PEDS [address] [place] [address] Saul Barbour MD [address] [place] [address] Type 2 diabetes mellitus with stage 3b chronic kidney disease, without long-term current use of insulin ([facility]) Social History Tobacco Use Types Packs/Day [...] Description 10/11/2024 1:00 PM EDT Office Visit [facility] CHC ADULT DENTAL [address] [place] [address] Marcus Shaka, DMD [address] [place] [address] documented as of this encounter Visit Diagnoses Diagnosis Type 2 diabetes mellitus with stage 3b chronic kidney disease, without long-term current use of insulin ([facility]) documented in this encounter Additional Health Concerns Assessment Noted Time PHQ-9 Depression Total Score: 26 022 10:52 AM EST documented as of this encounter Care Teams Mill Operator Head Relationship Specialty Start Date End Date Saul Barbour MD [address] [place] [address] PCP - General Internal Medicine 10/27/19 H[facility]ad Ho 08/13/23 documented as of this encounter
--- OUTSIDE RECORDS SUMMARY | 2024-09-29 15:35 | XMS_ITS | Encounter Summary ---
Author Organization [employer] Address [address] [facility] 7[address] [place] [address] Care Team Providers Care Change Management Lead Name Role Phone Saul Barbour MD Primary Care Prov ider Reason for Visit * Reason Onset Date Comments Nurse Triage 09/28/2024 ER Follow-up 09/28/2024 Encounter Details Date Type Department Care Team ([facility] st Contact Info) Description 09/28/2024 Telephone [facility] CHC MED & PEDS [address] [place] [address] Saul Barbour MD [address] [place] [address] Nurse Triage; ER Follow-up Social History Tobacco Use Types Packs/Day Years [...] encounter Miscellaneous Notes * Telephone Encounter - Evelyn Zamarripa RN - 09/28/2024 4:49 PM EDT called pt to triage, spoke to pt. pt states was at a provider's office on 09/25 and passed out. pt was taken to the ER at [facility] and had low BP and low sugar. no note in the chart as yet and will requestthem. pt states his BP was very low and his sugar was about 50. pt states also felt very sweaty anddizzy with the episode. no further fainting episode but had another episode of feeling sweaty and dizzy. pt has glucose meter and can check his sugars. advised home care: rest, fluids, good nutrition, do not skip meals, have a snack if feeling shaky again, sit or lie down if starting to have symptoms, juice with sugar if feeling dizzy or weak, and call back if worsening or new concerns. given appt tomorrow with [facility] at 2:20 for exam. pt understands and agrees with plan. insurance verified. Protocol Used: Fainting (Adult) Protocol-Based Disposition: See in Office or Video Visit Today Positive Triage Questions: * All other patients, and now alert and feels fine (Exception: SIMPLE FAINT due to stress, pain, prolonged standing, or suddenly standing.) * Patient wants to be seen * All higher-acuity triage questions were negative Care Advice Discussed: * Treatment - Fainting * Expected Course - Fainting * Prevention - Fainting * Warning Symptoms for Fainting * Reasons To Call Back - You become worse * Telephone Encounter - Orquidea Betancourt - 09/28/2024 4:25 PM EDT Patient calling to report ED visit on : Date: 09/25/24 Hospital: [facility] Seen for: fainted due to low blood sugar and low BP Symptomatic Yes *if yes message should go to Triage Contact pt at [phone] documented in this encounter Plan of Treatment Upcoming Encounters Date Type Department Care Team ([facility] st Contact Info) Description 10/11/2024 1:00 PM EDT Office Visit [facility] ADULT DENTAL [address] [place] [address] Shaka Velazquez DMD [address] [place] [address] documented as of this encounter Visit Diagnoses Not on filedocumented in this encounter Additional Health Concerns Assessment Noted Time PHQ-9 Depression Total Score: 15 024 2:48 PM EDT documented as of this encounter Care Teams Change Management Lead Relationship Specialty Start Date End Date Saul Barbour MD [address] [place] [address] PCP - General Internal Medicine 10/27/19 Harshad Ho 08/13/23 documented as of this encounter
--- OUTSIDE RECORDS SUMMARY | 2024-09-29 15:35 | XMS_ITS | Data Portability ---
Author Organization [employer] Address [address] [place] [id number] Care Team Providers Care Manager Health Name Role Phone [facility] OTHER [facility] OTHER Assessment Encounter Date Assessment Date Assessment LastModified by Organization Details LastModified Time 08/19/2022 08/19/2022 I have reviewed and agree with the assessment and plan as documented by the patient service technician pst. I provided real time medical direction for this encounter and was immediately available to provide additional phone based assistance as needed. History as noted by patient service technician pst. Pt with history of alcoholic gastritis, AUD [...] assessment and plan as documented by the patient service technician pst. I provided real-time medical direction for this encounter and was immediately available to provide additional phone-based assistance as needed. History as noted in EMR and by patient service technician pst. I would add / emphasize: Patient with [...] BMP, serum or plasma 024 12/14/[address], [phone] 4 08:56:22 Referral None recorded . Procedures [...] Not Available Not Available Not Available [employer] [place] Lite kit TAKE 1 DROP BY SUBCUTANEOU [...] % 175.26 cm 16 /min 97.9 [degF] 71703.6 16 g 107 mm[Hg] 64 mm[Hg] Not Available [employer] - production 4 15:12:09 Date Recorded Heart rate Oxygen [...] mm[Hg] 115 mm[Hg] 70 mm[Hg] Not Available [facility] - production 3 12:16:25 Social History None recorded. Functional Status None recorded. Mental Status None recorded. Family History Nothing Reported. Medical History No medical history recorded. Past Encounters Encounter ID Performer Location Encounter Start Date Encounter Closed Date Diagnosis/Indication Diagnosis SNOMED-CT Code Diagnosis ICD10 Code Diagnosis Note [id number] Damian Urrutia MD [facility] [address] [place] [phone] 08/19/2022 12:02:34 08/21/2022 10:58:22 Right upper quadrant pain 019181406 R10.11 [id number] Augustus Osorio MD Main - [facility] [address] [place] [phone] 12/14/2023 15:11:59 12/14/2023 17:08:41 Edema of lower extremity 907637444 R60.0 Health Concerns Section Related Observation LastModified by Organization Detai ls LastModified Time None Recorded Concern Status LastModified by Organization Details LastModified Time None Recorded Advance Directives Directive None Recorded Payers Encounter Date Sequence Insurance Name Policy Number Policy De La Vega Covered Member ID De La Vega Member ID Guarantor Name 08/19/2022 1 [facility] - DOS PRIOR TO 2022 - DUAL ELIGIBLE (MEDICARE REPLACEMENT/ADV ANTAGE - HMO) Po Bower [id number] Po Bower 12/14/2023 1 [facility] - DOS ON OR AFTER 2022 - DUAL ELIGIBLE - NURSING HOME OPTIONS AND ONE CARE (MEDICARE REPLACEMENT/ADV ANTAGE - HMO) Po Bower [id number] Po Bower Notes Date Note Type Note Provider Name and Address Organization Details Recorded Time 08/19/2022 text/html This was a supervised home visit with patient service technician pst Keysha Valentin. HPI: 62 y.o. M c/o [...] any hx of liver issues. Mbr has [facility] and Kimmy, visiting nurse was there requesting home visit for eval. Mbr agreed to [facility] eval, but was also asked to call his PCP to make them aware and inquire about radiological testing, as [facility] does not have this capability. He and [...] ................... ................... ................... ................... ................... ................... ........ Hogshead Roller Note From Keysha Valentin: Sent to evaluate [...] to make them aware of pain. Consulted [facility] who advised that pt needs to contact PCP to make them aware and to potentially arrange for imaging. [facility] explained red flags to trigger ER visit. Pt made aware and advised that he will contact PCP today. No further questions or concerns at this time. ................... ................... ................... ................... ................... ................... ................... ........ Disposition: Fulfilled Damian Urrutia MD [address] [facility],[address], [place], [address], [employer] 08/19/2022 15:08:54 12/14/2023 text/html HPI: Call returned [...] and assess vitals as no appointments at [facility] today or tomorrow. Reviewed home care advise, ER precautions and reasons to call back. ................... ................... ................... ................... ................... ................... ................... ........ CRC Nurse Triage Notes (Shadia Loya): Comments: CRC RN DID NOT NEED FURTHER INFO Hogshead Roller POC Test Results from Ronn Tovar [facility] (15:22:34) pH: 7.41 pH units pCO2: 43.1 mmHg pO2: 49.5 mmHg Na: 142 mmol/L K: 4.0 mmol/L iCa: 1.20 mmol/L Cl: 103 mmol/L TCO2: 27.1 mEq/L Hct: 38 % Hb: 13.0 g/dL Glu: 100 mg/dL Lac: 1.7 mmol/L Cr: 2.0 mg/dL BUN: 9 mg/dL A ................... ................... ................... ................... ................... ................... ................... ........ Hogshead Roller Note From Ronn Tovar: Pt reports increased [...] ........ Disposition: Fulfilled Augustus Osorio MD [address] [facility],[address], [place], [address], [employer] 12/14/2023 19:38:56
--- OUTSIDE RECORDS SUMMARY | 2024-09-29 15:35 | XMS_ITS | Encounter Summary ---
Author Organization [employer] Address [address] [facility] 7t [place] [address] Care Team Providers Care Cash Grain Grower Name Role Phone Saul Barbour MD Primary Care Prov ider Reason for Visit * Reason Onset Date Comments Med Refill 11/30/2023 Encounter Details Date Type Department Care Team ([facility] Contact Info) Description 11/30/2023 Telephone [facility] MED & PEDS [address] [place] [address] Saul Barbour MD [address] [place] [address] Med Refill Social History Tobacco Use Types [...] 1:03 PM EDT Medication was sent to [facility] #[id number] on 11/23/23 with 1 refill. * Telephone Encounter - Nakita Cuevas - 11/30/2023 12:14 PM EDT TC from pt requesting medication refill. Medications needing refill : ondansetron ODT (Zofran-ODT) 4 MG disintegrating tablet To be sent to: [facility]/pharmacy #[id number] - [place] - [address] [place] [address] documented in this encounter Plan of Treatment Upcoming Encounters Date Type Department Care Team (Late st Contact Info) Description 10/11/2024 1:00 PM EDT Office Visit [facility] CHC ADULT DENTAL [address] [place] [address] Shaka Velazquez, DMD [address] [place] [address] documented as of this encounter Visit Diagnoses Not on filedocumented in this encounter Additional Health Concerns Assessment Noted Time PHQ-9 Depression Total Score: 15 024 2:48 PM EDT documented as of this encounter Care Teams Cash Grain Grower Relationship Specialty Start Date End Date Saul Barbour MD [address] [place] [id number] PCP - General Internal Medicine 10/27/19 Harshad Ho 08/13/23 documented as of this encounter
--- OUTSIDE RECORDS SUMMARY | 2024-09-29 15:35 | XMS_ITS | Encounter Summary ---
Author Organization [employer] Address [address] [facility] [address] [place] [address] Care Team Providers Care Level Glass Vial Filler Name Role Phone Saul Barbour MD Primary Care Prov ider Encounter Details Date Type Department Care Team ([facility] st Contact Info) Description 09/17/2023 Orders Only [facility] CHC MED & PEDS [address] [place] [address] Saul Barbour MD [address] [place] [address] Social History Tobacco Use Types Packs/Day Years [...] 1:00 PM EDT Office Visit [facility] ADULT DENTAL [address] [place] [address] Shaka Velazquez, IRENE [address] [place] [address] documented as of this encounter Visit Diagnoses Not on filedocumented in this encounter Additional Health Concerns Assessment Noted Time PHQ-9 Depression Total Score: 15 024 2:48 PM EDT documented as of this encounter Care Teams Level Glass Vial Filler Relationship Specialty Start Date End Date Saul Barbour MD [address] [place] [address] PCP - General Internal Medicine 10/27/19 Harshad Ho 08/13/23 documented as of this encounter
--- OUTSIDE RECORDS SUMMARY | 2024-09-29 15:36 | XMS_ITS | Clinical Summary ---
Author Organization Unknown Care Team Providers Care National Facilities Manager Name Role Phone HIRAM PARR MD, RBENT Unavailable U cara OGDEN RN, LUIS Unavailable Unavailable Payers Payer Name Policy Type Policy Number Effective Date Expira tion Date [facility] [id number] MEDICAID [facility] [id number] MEDICARE - [facility] [id number] Problems Condition Name Condition Details Condition Category [...] %) transdermal gel 09-01 00:00: 00 Yes [id number] Per instruc tions 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 Per instructio ns 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 (route: transderma l) Med Classific ation: Endocrine Trelegy Ellipta 200 mcg-62.5 mcg-25 mcg powder for inhalation 02-11 00:00: 00 09-01 00:00 :00 No [id number] Per instruc tions EVERY DAY Per instructio ns EVERY DAY (route: inhalation ) Med Classific ation: Respirato ry Therapy Agents azelastine 137 mcg (0.1 %) nasal spray aerosol 09-01 00:00: 00 Yes [id number] Per instruc tions 1 SPRAY INTRANASAL LY TWICE A DAY Per instructio ns 1 SPRAY INTRANASAL LY TWICE A DAY (route: nasal) Med Classific ation: Respirato ry Therapy Agents aspirin 81 mg tablet,olya yed release 09-01 00:00: 00 Yes [id number] 1 tablet DAILY 1 tablet DAILY (route: oral) Med Classific ation: Hematolog ical Agents Alcohol Prep Pads 09-01 00:00: 00 Yes [id number] Per instruc tions 3 TIMES DAILY Per instructio ns 3 TIMES DAILY (route: topical) Med Classific ation: Antisepti cs and Disinfect ants furosemide 40 mg tablet 02-28 00:00: 00 09-01 23:59 :00 No [id number] 1 tablet 2 TIMES DAILY 1 tablet 2 TIMES DAILY (route: oral) Med Classific ation: Cardiovas cular Therapy Agents lorazepam 1 mg tablet 09-01 00:00: 00 08-29 23:59 :00 No [id number] Per instruc tions THREE TIMES A DAY NEEDED Per instructio ns THREE TIMES A DAY NEEDED (route: oral) Med Classific ation: Central Nervous System Agents acetaminoph en ER 650 mg tablet,exte nded release 09-01 00:00: 00 08-29 23:59 :00 No [id number] 1 tablet EVERY 8 HOURS 1 tablet EVERY 8 HOURS (route: oral) Med Classific ation: Analgesic , Anti-infl ammatory or Antipyret ic quetiapine 50 mg tablet 09-01 00:00: 00 11-17 23:59 :00 No [id number] Per instruc tions EVERY DAY NEEDED Per instructio ns EVERY DAY NEEDED (route: oral) Med Classific ation: Central Nervous System Agents metoprolol tartrate 25 mg tablet 09-01 00:00: 00 Yes [id number] 1 tablet TWICE A DAY 1 tablet TWICE A DAY (route: oral) Med Classific ation: Cardiovas cular Therapy Agents amlodipine 10 mg tablet 09-01 00:00: 00 09-01 23:59 :00 No [id number] 1 tablet DAILY 1 tablet DAILY (route: oral) Med Classific ation: Cardiovas cular Therapy Agents atorvastati n 80 mg tablet 09-01 00:00: 00 Yes [id number] 1 tablet BEDTIME 1 tablet BEDTIME (route: oral) Med Classific ation: Cardiovas cular Therapy Agents bupropion HCl XL 300 mg 24 hr tablet, extended release 09-01 00:00: 00 03-30 23:59 :00 No [id number] 1 tablet DAILY 1 tablet DAILY (route: oral) Med Classific ation: Central Nervous System Agents fluoxetine 40 mg capsule 09-01 00:00: 00 Yes [id number] 2 capsule DAILY 2 capsule DAILY (route: oral) Med Classific ation: Central Nervous System Agents gabapentin 600 mg tablet 09-01 00:00: 00 Yes [id number] 1 tablet 2 TIMES DAILY 1 tablet 2 TIMES DAILY (route: oral) Med Classific ation: Central Nervous System Agents ipratropium 0.5 mg-albutero l 3 mg (2.5 mg base)/3 mL nebulizatio n soln 09-01 00:00: 00 Yes [id number] Per instruc tions NEEDED Per instructio ns NEEDED (route: inhalation ) Med Classific ation: Respirato ry Therapy Agents Jardiance 25 mg tablet 02-28 00:00: 00 06-23 23:59 :00 No [id number] 2 tablet DAILY 2 tablet DAILY (route: oral) Med Classific ation: Endocrine melatonin 10 mg capsule 09-01 00:00: 00 Yes [id number] 1 capsule BEDTIME 1 capsule BEDTIME (route: oral) Med Classific ation: Central Nervous System Agents metoprolol tartrate 25 mg tablet 02-28 00:00: 00 09-01 00:00 :00 No [id number] 1 tablet 2 TIMES DAILY 1 tablet 2 TIMES DAILY (route: oral) Med Classific ation: Cardiovas cular Therapy Agents prednisone 5 mg tablet 02-28 00:00: 00 09-01 00:00 :00 No [id number] 1 tablet DAILY 1 tablet DAILY (route: oral) Med Classific ation: Endocrine quetiapine 100 mg tablet 09-01 00:00: 00 Yes [id number] 1 tablet BEDTIME 1 tablet BEDTIME (route: oral) Med Classific ation: Central Nervous System Agents quetiapine 50 mg tablet 09-01 00:00: 00 11-17 23:59 :00 No [id number] 1 tablet DAILY 1 tablet DAILY (route: oral) Med Classific ation: Central Nervous System Agents sulindac 150 mg tablet 02-28 00:00: 00 09-01 00:00 :00 No [id number] 1 tablet 2 TIMES DAILY 1 tablet 2 TIMES DAILY (route: oral) Med Classific ation: Analgesic , Anti-infl ammatory or Antipyret ic tadalafil 10 mg tablet 09-01 00:00: 00 Yes [id number] 1 tablet DAILY 1 tablet DAILY (route: oral) Med Classific ation: Drugs to treat Erectile Dysfuncti on terazosin 5 mg capsule 09-01 00:00: 00 Yes [id number] 1 capsule BEDTIME 1 capsule BEDTIME (route: oral) Med Classific ation: Cardiovas cular Therapy Agents trazodone 50 mg tablet 09-01 00:00: 00 Yes [id number] 1 tablet BEDTIME 1 tablet BEDTIME (route: oral) Med Classific ation: Central Nervous System Agents Trelegy Ellipta 200 mcg-62.5 mcg-25 mcg powder for inhalation 09-01 00:00: 00 Yes [id number] 2 inhalat ion DAILY 2 inhalation DAILY (route: inhalation ) Med Classific ation: Respirato ry Therapy Agents Vitamin D3 25 mcg (1,000 unit) capsule 09-01 00:00: 00 Yes [id number] 1 capsule DAILY 1 capsule DAILY (route: oral) Med Classific ation: Electroly te Balance-N utritiona l Products Wellbutrin XL 150 mg 24 hr tablet, extended release 09-01 00:00: 00 Yes [id number] 1 tablet DAILY 1 tablet DAILY (route: oral) Med Classific ation: Central Nervous System Agents sulindac 150 mg tablet 2022-06 00:00: 00 09-01 00:00 :00 No [id number] 150 mg 2 TIMES DAILY 150 mg 2 TIMES DAILY (route: oral) Med Classific ation: Analgesic , Anti-infl ammatory or Antipyret ic metformin 850 mg tablet 06-28 00:00: 00 09-01 23:59 :00 No [id number] 1 tablet 2 TIMES DAILY 1 tablet 2 TIMES DAILY (route: oral) Med Classific ation: Endocrine amlodipine 5 mg tablet 09-01 00:00: 00 Yes [id number] 1 tablet DAILY 1 tablet DAILY (route: oral) Med Classific ation: Cardiovas cular Therapy Agents Fiber (with aspartame) 3.4 gram/5.8 gram oral powder 09-01 00:00: 00 Yes [id number] 5 g DAILY 5 g DAILY (route: oral) Med Classific ation: Gastroint estinal Therapy Agents furosemide 20 mg tablet 09-01 00:00: 00 Yes [id number] 1 tablet DAILY 1 tablet DAILY (route: oral) Med Classific ation: Cardiovas cular Therapy Agents Abilify 5 mg tablet 11-17 00:00: 00 Yes [id number] 1 tablet DAILY 1 tablet DAILY (route: oral) Med Classific ation: Central Nervous System Agents potassium chloride ER 10 mEq tablet,exte nded release 01-19 00:00: 00 01-20 23:59 :00 No [id number] 1 tablet DAILY 1 tablet DAILY (route: oral) Med Classific ation: Electroly te Balance-N utritiona l Products tizanidine 2 mg tablet 01-19 00:00: 00 Yes [id number] 1 tablet EVERY 8 HOURS 1 tablet EVERY 8 HOURS (route: oral) Med Classific ation: Locomotor System Creon 24,000-76,0 00-120,000 unit capsule,del ayed release 2023-06 0-24 00:00: 00 Yes [id number] 1 capsule 3 TIMES DAILY 1 capsule 3 TIMES DAILY (route: oral) Med Classific ation: Gastroint estinal Therapy Agents dicyclomine 10 mg capsule 2023-06 0-24 00:00: 00 Yes [id number] 1 capsule 4 TIMES DAILY 1 capsule 4 TIMES DAILY (route: oral) Med Classific ation: Gastroint estinal Therapy Agents tolterodine ER 4 mg capsule,ext ended release 24 hr 2023-06 0-24 00:00: 00 Yes [id number] 1 capsule DAILY 1 capsule DAILY (route: [...] AWARENESS FOR SAFETY AND WILL NOTIFY CLINICAL BULK TANK DRIVER AND PHYSICIAN/PROVIDER WITH ANY CHANGE IN CONDITION. [code = SKILLED NURSE WILL MAINTAIN SITUATIONAL AWARENESS FOR SAFETY AND WILL NOTIFY CLINICAL BULK TANK DRIVER AND PHYSICIAN/PROVIDER WITH ANY CHANGE IN CONDITION.] Goal 2023-10-28 Patient Goal - NO HOSPITALIZ ATION Goal 2023-12-28 Patient Goal - NO HOSPITALIZ ATION Goal 2024-02-24 Patient Goal - NO HOSPITALIZ ATION Goal 2024-04-27 Patient Goal - STAY OUT OF [facility] Goal 2024-06-23 Patient Goal - STAY OUT OF [facility] Goal 2024-08-25 Patient Goal - [facility] OUT [facility] Goal Patient Goal - STAY OUT OF [facility] Goal Provider Goal - A PLAN OF CARE WILL BE ESTABLISHED THAT MEETS PATIENT'S SNF NEEDS AND INCLUDES PATIENT GOAL FOR HOME [...] End Date/Time Encounter Type Admission Type Attending [facility] Facility Care Department Encounter ID Discharge Date Discharge Status Discharge Condition Discharge Reason Percent Goals Met 2023-09-02 00:00:00 2024-10-25 00:00:00 Outpatient [facility] GAY[facility] [id number] 43.33
--- OUTSIDE RECORDS SUMMARY | 2024-09-29 15:36 | XMS_ITS | Encounter Summary ---
Author Organization [employer] Address [address] [facility] [address] [place] [address] Care Team Providers Care Buyer Broker Name Role Phone Saul Barbour MD Primary Care Prov ider Reason for Visit * Reason Comments Med Change Request Encounter Details Date Type Department Care Team ([facility] Contact Info) Description 11/10/2022 Refill [facility] CH[facility] MED & PEDS [address] [place] [address] Daryn Crowder MD [address] [place] [address] Chronic midline low back pain without sciatica [...] Description 10/11/2024 1:00 PM EDT Office Visit [facility] CHC ADULT DENTAL [address] [place] [address] Shaka Velazquez DMD [address] [place] [address] documented as of this encounter Visit Diagnoses Diagnosis Chronic midline low back pain without sciatica documented in this encounter Additional Health Concerns Assessment Noted Time PHQ-9 Depression Total Score: 26 05/22/ 022 10:52 AM EST documented as of this encounter Care Teams Buyer Broker Relationship Specialty Start Date End Date Saul Barbour MD [address] [place] [address] PCP - General Internal Medicine 10/27/19 Harshad Ho 08/13/23 documented as of this encounter
--- OUTSIDE RECORDS SUMMARY | 2024-09-29 15:36 | XMS_ITS | Clinical Summary ---
Author Organization [facility] Address [address] [place] [address] Phone Care Team Providers Care Archery Instructor Name Role Phone Saul Whatley Primary Care Provider Allergies Active Allergy Reactions Criticality Noted Date [...] MOUTH TWO TIMES A DAY 2 Active naltrexone (DEPADE) 50 MG tablet Take 25 mg by mouth 2 Active QUEtiapine (SEROquel) 100 MG tablet Take 200 mg by mouth every night 2 Active thiamine (VITAMIN B-1) 100 MG tablet 2 Active Testosterone 20.25 MG/ACT (1.62%) gel APPLY 2 PUMPS TOPICALLY DAILY OVER MAX AREA - ALTERNATE SHOULDERS ON ALTERNATE DAYS 2 Active tadalafil (CIALIS) 20 MG tablet take 1 tablet daily As Needed for sexual activity; administer approximately 30min before sexual activity; do not use more than 1 dose per 24hrs 2 Active gabapentin (NEURONTIN) 600 MG tablet Take 600 mg by mouth 2 Active FLUoxetine (PROzac) 40 MG capsule Take by mouth 1 (one) time each day 2 Active ALBUTEROL IN TAKE 2 PUFFS BY MOUTH EVERY 4 TO 6 HOURS NEEDED FOR SHORTNESS OF BREATH OR WHEEZING FOR 30 DAYS 3 Active buPROPion XL (WELLBUTRIN XL) 150 [...] FOR sexual activity, DAILY medication 3 Active Empagliflozin (Jardiance) 25 MG tabletIndicati ons:Stage 3b chronic kidney disease (HCC),Hyperten eileen Take 25 mg by mouth 1 (one) time each day in the morning 90 tablet 3 4 01/24/20 25 Active amLODIPine (NORVASC) 5 MG tabletIndicati ons:Hypertensi on Take 1 tablet (5 mg total) by mouth 1 (one) time each day 90 tablet 3 4 01/24/20 25 Active Creon 29156-112976 units capsule delayed-releas e particles TAKE 1 CAPSULE BY MOUTH 3 TIMES A DAY WITH BREAKFAST,LUNCH AND EVENING MEAL Active dicyclomine (BENTYL) 10 MG capsule Take 1 capsule by mouth in the morning and 1 capsule at noon and 1 capsule in the evening and 1 capsule before bedtime. 4 Active FLUoxetine (PROzac) 20 MG capsuleIndicat ions:Depressio n Take 20 mg by mouth 1 (one) time each day Take with 40 mg for 60 mg total/day Active furosemide (Lasix) 40 MG tabletIndicati ons:Stage 3b chronic kidney disease (HCC),Hyperten eileen Take 1 tablet (40 mg total) by mouth in the morning and 1 tablet (40 mg total) in the evening. 180 tablet 3 5 08/25/19 26 Active Active Problems Problem Noted Date Diagnosed [...] Encounters Date Type Department Care Team Description 08/24/2024 2:15 PM EDT Office Visit [facility] [address] [phone] Ml Tanner ARNP Stage 3b chronic kidney disease (HCC) (Primary Dx); Hypertension; Anemia in chronic kidney disease; Vitamin D deficiency, not otherwise specified from Last 3 Months Immunizations Immunization Administration Dates Next Due Hepatitis B 01/24/2018,11/18/2016 Moderna SARS-COV-2 05/26/2021,10/23/2020, 021 Pneumococcal Polysaccharide 03/24/2015 Shingrix 05/07/2021,04/19/2020,07/13/2018 Tdap 02/17/2018,02/03/2016 Social History Tobacco Use Types Packs/Day Years Used Date Smoking Tobacco: Every Day Cigarettes Smokeless Tobacco: Never Tobacco Cessation:Ready to Q uit: Not Asked; Counseling Given: Not Answered Alcohol Use Standard Drinks/Week Comments Not Currently 0 (1 standard drink = 0.6 oz pur e alcohol) Sex and Gender Information Value Date Recorded Sex Assigned at Not on file Legal Sex Male 1:53 PM EST Gender Identity Not on file Sexual Orientation Not on file Last Filed Vital Signs Vital Sign Reading Time Taken Comments Blood Pressure 100/70 08/24/2024 2:27 PM EDT Pulse 83 08/24/2024 2:27 PM EDT Temperature - - Respiratory Rate - - Oxygen Saturation 98% 08/24/2024 2:27 PM EDT Inhaled Oxygen Concentration - - Weight 68.9 kg (152 lb) 08/24/2024 2:27 PM EDT Height 175.3 cm (5' 9 ) 01/24/2024 7:46 AM EDT Body Mass Index 22.45 01/24/2024 7:46 AM EDT Plan of Treatment Upcoming Encounters Date Type Department Care Team (Late st Contact Info) Description 02/26/2025 10:30 AM EDT Office Visit [facility] [address] [phone] Ml aTnner ARNP [address] [phone] Health Maintenance Due Date Last Done Comments Colorectal Cancer Screening: Annual FOBT 2010 Colorectal Cancer Screening: Colonoscopy 2010 Colorectal Cancer Screening: Sigmoidoscopy 2010 Diabetes: Ophthalmology Exam 04/21/2022 Diabetes: Pedal Pulse Checked 04/21/2022 Diabetes: Sensory Foot Exam 04/21/2022 Diabetes: Visual Foot Exam 04/21/2022 Diabetes: Hemoglobin A1C 08/02/2024 024, 09/15/2023, 07/29/2022, Additional history exists Influenza Vaccine (Season Ended) 2025 03/05/2022, 05/07/2021, 02/14/2019, Additional history exists Hepatitis B Vaccine Aged Out 06/10/2018, 01/24/2018, 11/18/2016 No longer eligible based on patient's age to complete this topic Pneumococcal Vaccine: 50+ Years Completed 12/26/2022, 03/24/2015 Pneumococcal Vaccine: Peds (0 to 5 Years) and At-Risk Patients (6 to 49 Years) Discontinued 12/26/2022, 03/24/2015 Procedures Procedure Name Priority Date/Time Associated Diagnosis Comments MAGNESIUM Routine 09/11/2024 12:03 PM EDT Stage 3b chronic kidney disease (HCC) Hypertension Anemia in chronic kidney disease Vitamin D deficiency, not otherwise specified PROTEIN / CREATININE RATIO, URINE Routine 09/11/2024 12:03 PM EDT Stage 3b chronic kidney disease (HCC) Hypertension Anemia in chronic kidney disease Vitamin D deficiency, not otherwise specified URINE ALBUMIN / CREATININE RATIO Routine 09/11/2024 12:03 PM EDT Stage 3b chronic kidney disease (HCC) Hypertension Anemia in chronic kidney disease Vitamin D deficiency, not otherwise specified CBC Routine 09/11/2024 12:03 PM EDT Stage 3b chronic kidney disease (HCC) Hypertension Anemia in chronic kidney disease Vitamin D deficiency, not otherwise specified RENAL FUNCTION PANEL Routine 09/11/2024 12:03 PM EDT Stage 3b chronic kidney disease (HCC) Hypertension Anemia in chronic kidney disease Vitamin D deficiency, not otherwise specified PTH, INTACT Routine 09/11/2024 12:03 PM EDT Stage 3b chronic kidney disease (HCC) Hypertension Anemia in chronic kidney disease Vitamin D deficiency, not otherwise specified HEMOGLOBIN A1C Routine 07/29/2022 9:17 AM EST Type 2 diabetes mellitus with diabetic chronic kidney disease (HCC) Stage 3 chronic kidney disease, not otherwise specified (HCC) Benign hypertension from Last 3 Months or Most Recently Relevant to Health Maintenance Results * (ABNORMAL) Urine Protein / creatinine ratio (09/11/2024 12:03 PM EDT) Creatinine, Ur 20.1 Not Estab. mg/dL [facility] Protein, Ur 5.1 Not Estab. mg/dL [facility] Urine Protein/Creati nine Ratio 254(H) 0 - 200 mg/g creat [facility] Urine (Urine, Clean Catch) 09/11/2024 12:03 PM EDT 09/11/2024 Ml STEWARTP LAB URINE ORDERABLES Final Result [facility] [address] [place] [address] * Urine Albumin / Creatinine Ratio (09/11/2024 12:03 PM EDT) Albumin, Urine <3.0 Not Estab. ug/mL [facility] Albumin/Creatin ine Ratio <15 0 - 29 mg/g creat [facility] Comment: ? Normal: ?0 - ??29 ? Moderately increased: 30 - 300 ? Severely increased: ? >300 Urine (Urine, Clean Catch) 09/11/2024 12:03 PM EDT 09/11/2024 Ml Tanner [facility] LAB URINE ORDERABLES Final Result Performing Organization Address City/[facility]/ZIP Co de Phone Number [facility] [address] [place] [address] * CBC (09/11/2024 12:03 PM EDT) WBC 7.2 3.4 - 10.8 x10E3/uL [facility] RBC 5.17 4.14 - 5.80 x10E6/uL [facility] Hemoglobin 14.5 13.0 - 17.7 g/dL [facility] Hematocrit 44.5 37.5 - 51.0 % [facility] MCV 86 79 - 97 fL [facility] MCH 28.0 26.6 - 33.0 pg [facility] MCHC 32.6 31.5 - 35.7 g/dL [facility] RDW 13.4 11.6 - 15.4 % [facility] Platelets 216 150 - 450 x10E3/uL [facility] Blood (Blood, Venous) 09/11/2024 12:03 PM EDT 09/11/2024 Ml Tanner [facility] LAB BLOOD ORDERABLES Final Result Performing Organization Address City/[facility]/ZIP Co de Phone Number [facility] [address] [place] [address] * PTH, intact (09/11/2024 12:03 PM EDT) Pathologist [facility] PTH 52 15 - 65 pg/mL [facility] Blood (Blood, Venous) 09/11/2024 12:03 PM EDT 09/11/2024 [facility] LAB BLOOD ORDERABLES Final Result Performing Organization Address City/[facility]/ZIP Co de Phone Number [facility] [address] [place] [address] * Magnesium (09/11/2024 12:03 PM EDT) [facility] Magnesium 2.1 1.6 - 2.3 mg/dL [facility] Blood (Blood, Venous) 09/11/2024 12:03 PM EDT 09/11/2024 [facility] LAB BLOOD ORDERABLES Final Result Performing Organization Address City/[facility] Co de Phone Number [facility] [address] [place] [address] * (ABNORMAL) Renal function panel (09/11/2024 12:03 PM EDT) Pathologist [facility] Glucose 85 70 - 99 mg/dL [facility] BUN 16 8 - 27 mg/dL [facility] Creatinine 1.63(H) 0.76 - 1.27 mg/dL [facility] eGFR CKD-EPI CR 2020 47(L) >59 mL/min/1.7 3 [facility] BUN/Creatinine Ratio 10 10 - 24 [facility] Sodium 143 134 - 144 mmol/L [facility] Potassium 4.4 3.5 - 5.2 mmol/L [facility] Chloride 100 96 - 106 mmol/L [facility] Bicarbonate (CO2) 24 20 - 29 mmol/L [facility] Calcium 9.6 8.6 - 10.2 mg/dL [facility] Albumin 4.6 3.9 - 4.9 g/dL [facility] Phosphorus 3.1 2.8 - 4.1 mg/dL [facility] Blood (Blood, Venous) 09/11/2024 12:03 PM EDT 09/11/2024 Ml Tanner [employer] LAB BLOOD ORDERABLES Final Result [facility] [address] [place] [address] * (ABNORMAL) Hemoglobin A1c (07/29/2022 9:17 AM EST) Hemoglobin A1C 5.8(H) (4.0-5.6) % [facility] Comment: MONITORING: In known diabetic patients, hemoglobin A1c targets should be discussed with health care provider. DIAGNOSTIC USE: ??The [place] Diabetes Association (ADA) and the World Health [...] Supplement 1 Testing performed or reported by [facility], a Service of [facility], [address] [place] [address] Pratik Thompson MD, Medical Numerical Control Operator [facility]# [id number] Blood (Blood, Venous) 07/29/2022 9:17 AM EST 07/29/2022 9:20 AM EST Rachid Ortega MD LAB BLOOD ORDERABLES Final Re sult [facility] from Last 3 Months or Most Recently Relevant to Health Maintenance Insurance * Guarantor: [employer] Account Type Relation to Patient Date of Phone Billing Address Personal/Family Self 1960 [address] [facility] [address] ([id number]) [address] [place] [address] [facility] ([id number]) Care Teams Archery Instructor Relationship Specialty Start Date End Date Saul Whatley [address] [place] [address] PCP - General Internal Medicine 07/31/21
--- OUTSIDE RECORDS SUMMARY | 2024-09-29 15:36 | XMS_ITS | Encounter Summary ---
Author Organization [employer] Address [address] [facility] 7t [place] [address] Care Team Providers Care It Project Coordinator Name Role Phone Saul Barbour MD Primary Care Prov ider Encounter Details Date Type Department Care Team ([facility] st Contact Info) Description 06/30/2023 Orders Only [facility] CHC MED & PEDS [address] [place] [address] Saul Barbour MD [address] [place] [address] Social History Tobacco Use Types Packs/Day Years [...] [facility] AD[facility] [address] [place] [address] Shaka Velazquez, IRENE [address] [place] [address] documented as of this encounter Visit Diagnoses Not on filedocumented in this encounter Additional Health Concerns Assessment Noted Time PHQ-9 Depression Total Score: 18 024 10:06 AM EST documented as of this encounter Care Teams It Project Coordinator Relationship Specialty Start Date End Date Saul Barbour MD [address] [place] [address] PCP - General Internal Medicine 10/27/19 Harshad Ho 08/13/23 documented as of this encounter
--- OUTSIDE RECORDS SUMMARY | 2024-09-29 15:36 | XMS_ITS | Encounter Summary ---
Author Organization [employer] Address [address] [facility] 7[address] [place] [address] Care Team Providers Care Ornamental Metal Worker Helper Name Role Phone Saul Barbour MD Primary Care Prov ider Reason for Visit * Reason Onset Date Comments Call Back Request 07/29/2023 Encounter Details Date Type Department Care Team ([facility] Contact Info) Description 07/29/2023 Telephone [facility] CHC MED & PEDS [address] [place] [address] Saul Barbour MD [address] [place] [address] Call Back Request Social History Tobacco Use [...] AM EST Pt advised to go to [facility] after being triaged yesterday. * Telephone Encounter [...] Description 10/11/2024 1:00 PM EDT Office Visit [facility] CHC ADULT DENTAL [address] [place] [address] Shaka Velazquez, DMD [address] [place] [address] documented as of this encounter Visit Diagnoses Not on filedocumented in this encounter Additional Health Concerns Assessment Noted Time PHQ-9 Depression Total Score: 18 024 10:06 AM EST documented as of this encounter Care Teams Ornamental Metal Worker Helper Relationship Specialty Start Date End Date Saul Barbour MD [address] [place] [address] PCP - General Internal Medicine 10/27/19 Harshad Ho 08/13/23 documented as of this encounter
--- OUTSIDE RECORDS SUMMARY | 2024-09-29 15:36 | XMS_ITS | Encounter Summary ---
Author Organization [employer] Address [address] [place] [address] [address] [place] [address] Care Team Providers Care Strap Making Machine Operator Name Role Phone Saul Barbour MD Primary Care Prov ider Encounter Details Date Type Department Care Team (Late st Contact Info) Description 04/23/2022 Abstract [facility] MED & PEDS [address] [place] [address] ProviderAndrea MD Social History Tobacco Use Types [...] Encounters Date Type Department Care Team (Late Contact Info) Description 10/11/2024 1:00 PM EDT Office Visit [facility] ADULT DENTAL [address] [place] [address] Shaka Velazquez, IRENE [address] [place] [address] documented as of this encounter Procedures Procedure Name Priority Date/Time Associated Diagnosis Comments COLONOSCOPY Routine 11/05/2021 COLONOSCOPY Routine 05/04/2011 documented in this encounter Results * Colonoscopy (11/05/2021) Colonoscopy performed us Historical Provider HEALTH MAINTENANCE Final Result * Hm Colonoscopy (05/04/2011) Colonoscopy performed us Historical Provider HEALTH MAINTENANCE Final Result documented in this encounter Visit Diagnoses Not on filedocumented in this encounter Care Teams Strap Making Machine Operator Relationship Specialty Start Date End Date Saul Barbour MD [address] [place] [address] PCP - General Internal Medicine 10/27/19 Harshad Ho 08/13/23 documented as of this encounter
--- OUTSIDE RECORDS SUMMARY | 2024-09-29 15:36 | XMS_ITS | Encounter Summary ---
Author Organization [employer] Address [address] [facility] 7[address] [place] [address] Care Team Providers Care Advisory Software Engineer Name Role Phone Saul Barbour MD Primary Care Prov ider Reason for Visit * Reason Comments Med Refill Encounter Details Date Type Department Care Team (Late Contact Info) Description 11/04/2022 Refill [facility] MED & PEDS [address] [place] [address] Saul Barbour MD [address] [place] [address] Type 2 diabetes mellitus with stage 3b chronic kidney disease, with long-term current use of insulin ([facility]); Essential hypertension Social History Tobacco Use Types [...] Description 10/11/2024 1:00 PM EDT Office Visit [facility]C ADULT DENTAL [address] [place] [address] Shaka Velazquez, DMD [address] [place] [address] documented as of this encounter Visit Diagnoses Diagnosis Type 2 diabetes mellitus with stage 3b chronic kidney disease, with long-term current use of insulin ([facility]) Essential hypertension Unspecified essential hypertension documented in this encounter Additional Health Concerns Assessment Noted Time PHQ-9 Depression Total Score: 26 022 10:52 AM EST documented as of this encounter Care Teams Advisory Software Engineer Relationship Specialty Start Date End Date Saul Barbour MD [address] [place] [address] PCP - General Internal Medicine 10/27/19 Hrashad Ho 08/13/23 documented as of this encounter
--- OUTSIDE RECORDS SUMMARY | 2024-09-29 15:36 | XMS_ITS | Encounter Summary ---
Author Organization [employer] Address [address] [facility] 7[address] [place] [address] Care Team Providers Care Wardrobe Assistant Name Role Phone Saul Barbour MD Primary Care Prov ider Reason for Visit * Reason Onset Date Comments Med Refill 06/23/2023 Encounter Details Date Type Department Care Team ([facility] Contact Info) Description 06/23/2023 Telephone [facility] MED & PEDS [address] [place] [address] Saul Barbour MD [address] [place] [address] Med Refill Social History Tobacco Use Types [...] encounter Miscellaneous Notes * Telephone Encounter - Mikel Baron - 06/23/2023 9:46 AM EST TC from [facility] Visiting nurse requesting medication refill. Medications needing refill : metoprolol tartrate (Lopressor) 25 MG tablet To be sent to: [facility]/pharmacy #[id number] documented in this encounter Plan of Treatment Upcoming Encounters Date Type Department Care Team (Late st Contact Info) Description 10/11/2024 1:00 PM EDT Office Visit [facility] ADULT DENTAL [address] [place] [address] Shaka Velazquez, IRENE [address] [place] [address] documented as of this encounter Visit Diagnoses Not on filedocumented in this encounter Additional Health Concerns Assessment Noted Time PHQ-9 Depression Total Score: 18 024 10:06 AM EST documented as of this encounter Care Teams Wardrobe Assistant Relationship Specialty Start Date End Date Saul Barbour MD [address] [place] [address] PCP - General Internal Medicine 10/27/19 Harshad Ho 08/13/23 documented as of this encounter
--- OUTSIDE RECORDS SUMMARY | 2024-09-29 15:36 | XMS_ITS | Encounter Summary ---
Author Organization [employer] Address [address] [place] [address] [address] [place] [address] Care Team Providers Care Big Data Software Engineer Name Role Phone Saul Barbour MD Primary Care Prov ider Encounter Details Date Type Department Care Team (Latest Contact Info) Description 09/12/2020 Abstract [facility] CONVERSIONS Dental, Provider, DDS Social History Tobacco [...] Upcoming Encounters Date Type Department Care Team ([facility] st Contact Info) Description 10/11/2024 1:00 PM EDT Office Visit [facility] CHC ADULT DENTAL [address] [place], [place] [phone] Shaka Velazquez, DMD [address] [place], [place] documented as of this encounter Visit Diagnoses Not on filedocumented in this encounter Care Teams Big Data Software Engineer Relationship Specialty Start Date End Date Saul Barbour MD [address] [place], [place] PCP - General Internal Medicine 10/27/19 Harshad Ho 08/13/23 documented as of this encounter
--- OUTSIDE RECORDS SUMMARY | 2024-09-29 15:36 | XMS_ITS | Clinical Summary ---
Author Organization [employer] Address [address] [facility] 7t [place] [address] Care Team Providers Care Steel Grinder Name Role Phone Saul Barbour MD Primary [...] TABLET BY MOUTH TWO TIMES A DAY 023 Active metoprolol tartrate (Lopressor) 25 MG tablet [...] Additional Information Patient not taking.Reported on 02/04/2024 ketotifen (Zaditor) 0.025 % ophthalmic solution 1 drop. Into affected eye twice a day Active famotidine (Pepcid) 20 MG tablet Take 20 mg by mouth in the morning. 024 Active FLUoxetine (PROzac) 40 MG capsule Take 40 mg by mouth in the morning. Take 1 capsule by mouth daily in the morning with 20 mg capsule for a total dose of 60 mg 023 Active amLODIPine (Norvasc) 10 MG tabletIndications :Essential hypertension Take 0.5 tablets (5 mg) by mouth in the morning. 90 tablet 1 Active Blood Glucose Monitoring Suppl (FreeStyle Lite) w/Device kit 1 kit in the morning. 1 kit Active D3-1000 25 MCG (1000 UT) tablet TAKE 1 TABLET BY MOUTH EVERY DAY 90 tablet 5 024 Active ammonium lactate (Lac-Hydrin) 12 % lotion Apply to soles of feet daily and wear socks to bed at night Active hydrOXYzine HCl (Atarax) 25 MG tablet Take 25 mg by mouth in the morning. Active Ronda-Mucil 51.7 % powder MIX 1 ROUNDED TEASPOONFUL IN 8 OUNCES OF COOL LIQUID AND DRINK DAILY NEEDED FOR STOOL BULKING 024 Active glucose blood (FREESTYLE LITE) test stripIndications: Type 2 diabetes mellitus with stage 3b chronic kidney disease, without long-term current use of insulin ([facility]) 1 each by Other route every 8 (eight) hours. 3x daily 100 each 11 024 Active Alcohol Swabs (Alcohol Prep) 70 % padsIndications:T ype 2 diabetes mellitus with stage 3b chronic kidney disease, with long-term current use of insulin ([facility]) PLACE 1 EACH ON THE SKIN 3 TIMES DAILY. 100 each 11 024 Active FreeStyle lancetsIndication s:Type 2 diabetes mellitus with stage 3a chronic kidney disease, without long-term current use of insulin ([facility]) USE TO TEST BLOOD SUGAR ONCE A DAY 100 each 1 024 Active ARIPiprazole (Abilify) 2.5 MG split tablet 1 tablet DAILY (route: oral) Active Alcohol Swabs (Alcohol Prep) pads Per instructions 3 TIMES DAILY (route: topical) Active tiZANidine (Zanaflex) 2 MG capsule 1 tablet EVERY 8 HOURS (route: oral) Active Sod Fluoride-Potassiu m Nitrate 1.1-5 % pasteIndications: Dental caries Welch teeth for 2 minutes, morning and night. Spit, do not rinse. Do not eat or drink anything for 30 minutes following brushing. 112 g 3 024 Active Creon 14145-433009 units capsule delayed-release particles capsule TAKE 1 [...] BEDTIME FOR DIARRHEA. 24 capsule 025 Active furosemide (Lasix) 20 MG tablet TAKE 1 TABLET BY MOUTH EVERY DAY IN THE MORNING 90 tablet 1 025 Active gabapentin (Neurontin) 600 MG tabletIndications :Type 2 diabetes mellitus with stage 3b chronic kidney disease, with long-term current use of insulin ([facility]) TAKE 1 TABLET BY MOUTH 2 TIMES DAILY 180 tablet 3 025 Active acetaminophen (Tylenol 8 Hour) 650 MG ER tablet TAKE 1 TABLET BY MOUTH EVERY 8 HOURS 90 tablet 1 025 Active glucose 4 g chewable tabletIndications :Hypoglycemia Chew 4 tablets (16 g) if needed for low blood sugar. 50 tablet 12 025 2025 Active gabapentin (Neurontin) 600 MG tabletIndications :Type 2 diabetes mellitus with stage 3b chronic kidney disease, with long-term current use of insulin ([facility]) Take 1 tablet (600 mg) by mouth 2 times daily. 180 tablet 3 024 2024 Discontinued psyllium (Metamucil Smooth Texture) 58.6 % powder Take 5.12 g (3 g of fiber) by mouth 2 times daily. 283 g 11 024 2024 acetaminophen (Tylenol 8 Hour) 650 MG ER tablet TAKE 1 TABLET BY MOUTH EVERY 8 HOURS 90 tablet 1 025 2024 Discontinued Active Problems Problem Noted Date [...] Encounters Date Type Department Care Team Description 09/29/2024 2:20 PM EDT Office Visit [facility] MED & PEDS [address] [place] [address] Daryn Crowder MD Pre-syncope (Primary Dx); Hypoglycemia; Type 2 diabetes mellitus with stage 3a chronic kidney disease, without long-term current use of insulin ([facility]) 09/29/2024 Travel 09/28/2024 Telephone [facility] [address] [place] [address] Saul Barbour MD Nurse Triage; ER Follow-up 09/23/2024 Refill [facility] [address] [place] [address] Saul Barbour MD 08/31/2024 Refill [facility] [address] [place] [address] Saul Barbour MD Type 2 diabetes mellitus with stage 3b chronic kidney disease, with long-term current use of insulin (CMS/HCC) 07/29/2024 Refill [facility] [address] [place] [address] Saul Barbour MD 07/23/2024 Refill [facility] [address] [place], [place] [phone] Saul Barbour MD 07/20/2024 Refill [facility] [address] [place], [place] [phone] Saul Barbour MD Essential hypertension; Diarrhea, unspecified type 07/16/2024 Refill [facility] [address] [place], [place] [phone] Saul Barbour MD from Last 3 Months Immunizations Name Administration [...] Mass Index 23.24 09/29/2024 2:20 PM EDT Plan of Treatment Upcoming Encounters Date Type Department Care Team (Late st Contact Info) Description 10/11/2024 1:00 PM EDT Office Visit [facility] ADULT DENTAL [address] [place] [address] Shaka Velazquez, DMD [address] [place] [address] Health Maintenance Due Date Last Done Comments CT Colonography 1961 Dental X-Ray: Full Mouth 1961 FIT DNA/Cologuard 1961 FIT 1961 FOBT 1961 HIV Screening 1961 Sigmoidoscopy 1961 Eye Exam 1971 Alcohol/Substance Use Screening 1973 RSV Patients and Patients Aged 60 years or older (1 - Risk 60-74 years 1-dose series) 2021 Lipid Panel 02/17/2023 02/17/2022, 08/07, 05/29/2021 Diabetes: Foot Exam 06/15/2024 06/15/2023, 06/15/2023, 06/15/2023, Additional history exists Dental Oral Exam 08/05/2024 02/04/2024, 06/23/2022 Dental Prophylaxis 08/05/2024 02/04/2024, 07/16/2022 Depression Screening 08/18/2024 08/19/2023, 08/19/19 Diabetes: Hemoglobin A1C 10/30/2024 024, 09/15/2023, 03/09/2023, Additional history exists SDOH Screening 11/01/2024 11/02/2023 Dental X-Ray: Bitewings 02/04/2025 02/04/2024, 06/23 Tobacco Screening 09/29/2025 09/29/2024 Colonoscopy 11/06/2031 11/05/2021, 05/04/2011 Colorectal Cancer Screening [...] disease, without long-term current use of insulin ([facility]) HEMOGLOBIN A1C Routine 05/02/2024 11:16 AM EST [...] Recently Relevant to Health Maintenance Results * POCT Glucose (09/29/2024 2:38 PM EDT) Pathologist [facility] Glucose Blood, POC 98 60 - 200 mg/dL QC Media Lot # [id number] Lot# Expiration Date [id number] Blood Capillary blood specimen / Unknown 09/29/2024 2:38 PM EDT us Daryn Crowder MD POINT OF CARE TEST ENTER/ED IT ORDERABLES Final Result * Hemoglobin A1c (05/02/2024 11:16 AM EST) Blood Venous blood specimen / Unknown Historical Provider LAB BLOOD ORDERABLES Shaneka l Result * Hepatitis C Antibody Reflex (01/21/2023 2:59 PM EDT) [facility] Hepatitis C Antibody Nonreactive Nonreactive [facility] Comment:Antibodies to HCV no t detected; does not exclude early acuteHCV infection. 01/21/2023 2:59 PM EDT 01/21/2023 5:19 PM EDT Saul Spicer MD LAB BLOOD ORDERABL ES Final Result [facility] [address] [place] [phone] * (ABNORMAL) LIPID PANEL, STANDARD (02/17/2022 11:32 AM EDT) [facility] Chol/HDLC Ratio 3.7 <5.0 (calc) [facility] Cholesterol, Total 148 <200 mg/dL [...] ?? LDL-C is now calculated using the Mohan-Shin ?? calculation, which is a validated novel method providing ?? better accuracy than the Friedewald equation in the ?? estimation of LDL-C. ?? Mohan SS et al. FABIOLA. 2013;310(19): 6401-5174 ?? (http://education.48domain/faq/CAW287) Non-HDL Cholesterol 108 <130 mg/dL (calc) [facility] Comment: For patients with diabetes plus 1 major ASCVD risk ?? factor, treating to a non-HDL-C goal of <100 mg/dL ?? (LDL-C of <70 mg/dL) is considered a therapeutic ?? option. Triglycerides 275(H) <150 mg/dL [facility] Comment: ?? If a non-fasting specimen was collected, consider repeat triglyceride testing on a fasting specimen if clinically indicated. ?? Crystal et al. J. of Clin. Lipidol. 2015;9:129-169. ?? 02/17/2022 11:3 2 AM EDT Saul Spicer MD LAB BLOOD ORDERABL ES Final Result [facility] [address] * Colonoscopy (11/05/2021) Colonoscopy performed [facility] Provider HEALTH MAINTENANCE Final Result from Last 3 Months or Most Recently Relevant to Health Maintenance Insurance [facility] Member Subscriber Plan / Payer (Ef fective 2019-Present) Name:Po Bower Relation to Subscriber:Self Name:Po Bower Payer ID:Not on file Group ID:[id number] Type:Not on file Address: [address] ONE CARE < 65 [facility] STANDARD [facility] Care Teams Steel Grinder Relationship Specialty Start Date End Date Saul Barbour MD [address] [place] [id number] PCP - General Internal Medicine 10/27/19 Harshad Ho 08/13/23
--- OUTSIDE RECORDS SUMMARY | 2024-09-29 15:36 | XMS_ITS | Encounter Summary ---
Author Organization [employer] Address [address] [facility] 7t [place] [address] Care Team Providers Care Hvac Lead Name Role Phone Saul Barbour MD Primary Care Prov ider Encounter Details Date Type Department Care Team (Late Contact Info) Description 05/25/2022 Abstract [facility] ADULT DENTAL [address] [place], [place] [phone] Angus Rosales DMD [address] [place], [place] [phone] Social History Tobacco Use Types Packs/Day Years [...] Upcoming Encounters Date Type Department Care Team ([facility] Contact Info) Description 10/11/2024 1:00 PM EDT Office Visit [facility] ADULT [facility] [address] [place] [address] Shaka Velazquez, DMD [address] [place] [address] Scheduled Orders Name Type Priority Associated Diagnoses [...] COMPOSITE FILLING Routine 12:00 AM EST 27 AL COMPOSITE FILLING Routine 05/25/20 12:00 AM EST 28 MOB COMPOSITE FILLING Routine 12:00 AM EST 29 MODB COMPOSITE FILLING Routine 05/25/2022 12:00 AM EST 30 MODB COMPOSITE FILLING Routine 05/25/2022 12:00 AM EST 31 MOB COMPOSITE FILLING Routine 12:00 AM EST 6 AL COMPOSITE FILLING Routine 12:00 AM EST 5 [...] documented as of this encounter Care Teams Hvac Lead Relationship Specialty Start Date End Date Saul Barbour MD [address] [place] [phone] PCP - General Internal Medicine 10/27/19 Harshad Ho 08/13/23 documented as of this encounter
--- OUTSIDE RECORDS SUMMARY | 2024-09-29 15:36 | XMS_ITS | Encounter Summary ---
Author Organization [employer] Address [address] [facility] 7t [place] [address] Care Team Providers Care Comedian Name Role Phone Saul Barbour MD Primary Care Prov ider Reason for Visit * Reason Onset Date Comments Nurse Triage 07/30/2023 Encounter Details Date Type Department Care Team ([facility] st Contact Info) Description 07/30/2023 Telephone [facility] MED & PEDS [address] [place] [address] Saul Barbour MD [address] [place] [address] Nurse Triage Social History Tobacco Use Types [...] accepted this outcome Please contact pt @ [phone] documented in this encounter Plan of Treatment Upcoming Encounters Date Type Department Care Team ([facility] st Contact Info) Description 10/11/2024 1:00 PM EDT Office Visit [facility] ADULT DENTAL [address] [place] [address] Shaka Velazquez DMD [address] [place] [address] documented as of this encounter Visit Diagnoses Diagnosis Diarrhea, unspecified type documented in this encounter Additional Health Concerns Assessment Noted Time PHQ-9 Depression Total Score: 18 024 10:06 AM EST documented as of this encounter Care Teams Comedian Relationship Specialty Start Date End Date Saul Barbour MD [address] [place] [address] PCP - General Internal Medicine 10/27/19 Harshad Ho 08/13/23 documented as of this encounter
--- OUTSIDE RECORDS SUMMARY | 2024-09-29 15:36 | XMS_ITS | Encounter Summary ---
Author Organization [employer] Address [address] [facility] [address] 7t [place] [address] Care Team Providers Care Senior Mechanical Technician Name Role Phone Saul Barbour MD Primary Care Prov ider Encounter Details Date Type Department Care Team (Late st Contact Info) Description 06/25/2023 Telephone [facility] MEDICINE [address] [place] [address] Saul Barbour MD [address] [place] [address] Social History Tobacco Use Types Packs/Day Years [...] Description 10/11/2024 1:00 PM EDT Office Visit [facility] ADULT DENTAL [address] [place] [address] Shaka Velazquez, DMD [address] [place] [address] documented as of this encounter Visit Diagnoses Not on filedocumented in this encounter Additional Health Concerns Assessment Noted Time PHQ-9 Depression Total Score: 18 024 10:06 AM EST documented as of this encounter Care Teams Senior Mechanical Technician Relationship Specialty Start Date End Date Saul Barbour MD [address] [place] [address] PCP - General Internal Medicine 10/27/19 Harshad Ho 08/13/23 documented as of this encounter
--- OUTSIDE RECORDS SUMMARY | 2024-09-29 15:36 | XMS_ITS | Encounter Summary ---
Author Organization [employer] Address [address] [place] [address] 7[address] [place] [address] Care Team Providers Care Partnership Marketing Manager Name Role Phone Saul Barbour MD Primary Care Prov ider Encounter Details Date Type Department Care Team (Latest Contact Info) Description 07/27/2018 Abstract [facility] Dental, Provider, DDS Social History Tobacco [...] Upcoming Encounters Date Type Department Care Team ([facility] st Contact Info) Description 10/11/2024 1:00 PM EDT Office Visit [facility] ADULT DENTAL [address] [place], [place] [phone] Shaka Velazquez, DMD [address] [place], [place] documented as of this encounter Visit Diagnoses Not on filedocumented in this encounter Care Teams Partnership Marketing Manager Relationship Specialty Start Date End Date Saul Barbour MD [address] [place], [place] PCP - General Internal Medicine 10/27/19 Harshad Ho 08/13/23 documented as of this encounter
--- OUTSIDE RECORDS SUMMARY | 2024-09-29 15:36 | XMS_ITS | Encounter Summary ---
Author Organization [employer] Address [address] [facility] 7 [place] [address] Care Team Providers Care Health Promotion Manager Name Role Phone Saul Barbour MD Primary Care Prov ider Reason for Visit * Reason Onset Date Comments Order 12/21/2023 Encounter Details Date Type Department Care Team ([facility] st Contact Info) Description 12/21/2023 Telephone [facility] MED & PEDS [address] [place] [address] Saul Barbour MD [address] [place] [address] Order Social History Tobacco Use Types Packs/Day [...] Description 10/11/2024 1:00 PM EDT Office Visit [facility] ADULT DENTAL [address] [place] [address] Shaka Velazquez, DMD [address] [place] [address] documented as of this encounter Visit Diagnoses Not on filedocumented in this encounter Additional Health Concerns Assessment Noted Time PHQ-9 Depression Total Score: 15 024 2:48 PM EDT documented as of this encounter Care Teams Health Promotion Manager Relationship Specialty Start Date End Date Saul Barbour MD [address] [place] [address] PCP - General Internal Medicine 10/27/19 Harshad Ho 08/13/23 documented as of this encounter
--- OUTSIDE RECORDS SUMMARY | 2024-09-29 15:36 | XMS_ITS | Encounter Summary ---
Author Organization [employer] Address [address] [facility] 7t [place] [address] Care Team Providers Care Retort Press Operator Name Role Phone Saul Barbour MD Primary Care Prov ider Reason for Visit * Reason Onset Date Comments Appointment 03/04/2023 Encounter Details Date Type Department Care Team (Late st Contact Info) Description 03/04/2023 Telephone [facility] [address] [place] [address] Ninoska Aguilar BDS Appointment Social History Tobacco [...] calls for [facility] come in though the [facility] and that I would relay message to office. It is an appt with Dr. Aguilar and he would jose to be scheduled with someone who can see himDR documented in this encounter Plan of Treatment Upcoming Encounters Date Type Department Care Team (Late st Contact Info) Description 10/11/2024 1:00 PM EDT Office Visit [facility] ADULT D[facility] [address] [place] [address] Shaka Velazquez, DMD [address] [place] [address] documented as of this encounter Visit Diagnoses Not on filedocumented in this encounter Additional Health Concerns Assessment Noted Time PHQ-9 Depression Total Score: 26 05/22/ 022 10:52 AM EST documented as of this encounter Care Teams Retort Press Operator Relationship Specialty Start Date End Date Saul Barbour MD [address] [place] [address] PCP - General Internal Medicine 10/27/19 Harshad Ho 08/13/23 documented as of this encounter
--- OUTSIDE RECORDS SUMMARY | 2024-09-29 15:36 | XMS_ITS | Encounter Summary ---
Author Organization [employer] Address 75 [facility] 7t [place] [address] Care Team Providers Care Technician Semiconductor Development Name Role Phone Saul Barbour MD Primary Care Prov ider Encounter Details Date Type Department Care Team ([facility] st Contact Info) Description 12/23/2023 Orders Only [facility] MED & PEDS [address] [place], [place] [phone] Daryn Crowder MD [address] [place] [address] Right foot pain (Primary Dx) Social History [...] Visit [facility] ADULT DENTAL [address] [place] [address] Shaka Velazquez DMD [address] [place] [address] Scheduled Orders Name Type Priority Associated Diagnoses [...] Lower Extremities, Foot Right Radiogra phic Imaging us Daryn Crowder MD IMG XR PROCEDURES Final Res ult documented in this encounter Visit Diagnoses Diagnosis Right foot pain- Primary Pain in soft tissues of limb documented in this encounter Additional Health Concerns Assessment Noted Time PHQ-9 Depression Total Score: 15 024 2:48 PM EDT documented as of this encounter Care Teams Technician Semiconductor Development Relationship Specialty Start Date End Date Saul Barbour MD [address] [place] [address] PCP - General Internal Medicine 10/27/19 Harshad oH 08/13/23 documented as of this encounter
--- OUTSIDE RECORDS SUMMARY | 2024-09-29 15:36 | XMS_ITS | Encounter Summary ---
Author Organization [employer] Address [address] [facility] 7t [place] [address] Care Team Providers Care Fabrication Inspector Name Role Phone Saul Barbour MD Primary Care Prov ider Reason for Visit * Reason Onset Date Comments Med Refill 04/25/2024 Encounter Details Date Type Department Care Team ([facility] Contact Info) Description 04/25/2024 Telephone [facility] MEDICINE [address] [place] [address] Saul Barbour MD [address] [facility] [place] [address] Med Refill Social History Tobacco Use Types [...] 2:46 PM EST Medication was sent to [facility] #[id number] on 04/21/24 with 1 refill. * Telephone Encounter - Nicole Goldberg - 04/25/2024 2:34 PM EST TC from pt requesting medication refill. Medications needing refill : ondansetron ODT (Zofran-ODT) 4 MG disintegrating tablet To be sent to: [facility]/pharmacy #[id number] documented in this encounter Plan of Treatment Upcoming Encounters Date Type Department Care Team (Late st Contact Info) Description 10/11/2024 1:00 PM EDT Office Visit [facility] ADULT DENTAL [address] [place] [address] Shaka Velazquez, IRENE [address] [place] [address] documented as of this encounter Visit Diagnoses Not on filedocumented in this encounter Additional Health Concerns Assessment Noted Time PHQ-9 Depression Total Score: 15 024 2:48 PM EDT documented as of this encounter Care Teams Fabrication Inspector Relationship Specialty Start Date End Date Saul Barbour MD [address] [place] [address] PCP - General Internal Medicine 10/27/19 Harshad Ho 08/13/23 documented as of this encounter
--- OUTSIDE RECORDS SUMMARY | 2024-09-29 15:36 | XMS_ITS | Encounter Summary ---
Author Organization [employer] Address [address] [facility] 7 [place] [address] Care Team Providers Care Melt Supervisor Name Role Phone Saul Barbour MD Primary Care Prov ider Reason for Visit * Reason Onset Date Comments Medication Question 06/23/2023 Encounter Details Date Type Department Care Team ([facility] Contact Info) Description 06/23/2023 Telephone [facility] MED & PEDS [address] [place] [address] Saul Barbour MD [address] [place] [address] Medication Question Social History Tobacco Use Types [...] Michelle informed of need 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 Information provided to Michelle to contact their [...] clarification on furosemide (Lasix) 40 MG tablet. Ritais unsure if pt should be taking medication. You can contact Rita at [phone]. documented in this encounter Plan of Treatment Upcoming Encounters Date Type Department Care Team (Late st Contact Info) Description 10/11/2024 1:00 PM EDT Office Visit [facility] ADULT DENTAL [address] [place] [address] Shaka Velazquez, DMD [address] [place] [address] documented as of this encounter Visit Diagnoses Not on filedocumented in this encounter Additional Health Concerns Assessment Noted Time PHQ-9 Depression Total Score: 18 024 10:06 AM EST documented as of this encounter Care Teams Melt Supervisor Relationship Specialty Start Date End Date Saul Barbour MD [address] [place] [address] PCP - General Internal Medicine 10/27/19 Harshad Ho 08/13/23 documented as of this encounter
[2024-09-29 17:50] LABS: Alanine Aminotransferase 27 U/L (0-40); Alkaline Phosphatase 64 U/L (39-117); Anion Gap 14 (12-20); Aspartate Amino Transferase 36 U/L (5-37); Bilirubin Total 0.2 mg/dL (0.0-1.0); Blood Urea Nitrogen 23 mg/dL (9-16); Calcium 9.3 mg/dL (8.4-10.2); Carbon Dioxide 24 mmol/L (22-29); Chloride 105 mmol/L (96-108); Estimated Glomerular Filt Rate 30; Glucose Random 82 mg/dL (60-115); Potassium 4.1 mmol/L (3.3-5.1); Sodium 139 mmol/L (135-145); Total Protein 7.2 g/dL (6.5-8.0)
== END 2024-09-29 14:53 | disposition home or self-care (01) ==
LOC: HO.CHCLDS 14:52
PROVIDERS: Visit Provider Internal Medicine
DX: E16.2 Hypoglycemia, unspecified (principal)
CPT/HCPCS: 36415; 80053

== ENCOUNTER 2024-10-11 14:09 | Outpatient (REF) | payer OTHER, SELFPAY ==
--- OUTSIDE RECORDS SUMMARY | 2024-10-11 15:24 | XMS_ITS | Data Portability ---
Author Organization [employer] Address [address] [place] [id number] Care Team Providers Care Plant Pathology Teacher Name Role Phone [facility] OTHER [phone] [facility] [address] OTHER Assessment Encounter Date Assessment Date Assessment LastModified by Organization Details LastModified Time 08/19/2022 08/19/2022 I have reviewed and agree with the assessment and plan as documented by the generator assembler. I provided real time medical direction for this encounter and was immediately available to provide additional phone based assistance as needed. History as noted by generator assembler. Pt with history of alcoholic gastritis, AUD [...] assessment and plan as documented by the generator assembler. I provided real-time medical direction for this encounter and was immediately available to provide additional phone-based assistance as needed. History as noted in EMR and by generator assembler. I would add / emphasize: Patient with [...] serum or plasma 024 12/14/[address], [phone] 4 08:56:22 Referral None recorded . Procedures [...] Not Available Not Available Not Available FreeStyle [place] Lite kit TAKE 1 DROP BY SUBCUTANEOU [...] % 175.26 cm 16 /min 97.9 [degF] 76860.6 16 g 107 mm[Hg] 64 mm[Hg] Not Available [employer] - production 4 15:12:09 Date Recorded Heart [...] [id number] Damian Urrutia MD Main - [facility] [address] [place] [phone] 08/19/2022 12:02:34 08/21/2022 10:58:22 Right upper quadrant pain [id number] R10.11 [id number] Augustus Osorio MD Main - [facility] [address] [place] [phone] 12/14/2023 15:11:59 12/14/2023 17:08:41 Edema of lower extremity [id number] R60.0 Health Concerns Section Related Observation LastModified by Organization Deta[employer] ls LastModified Time None Recorded Concern Status LastModified by Organization Details LastModified Time None Recorded Advance Directives Directive None Recorded Payers Insurance Date Sequence Insurance Name Policy Number Policy [place] Covered Member ID De [place] Member ID Guarantor Name 12/14/[address] [facility] - DOS PRIOR TO 2022 - DUAL ELIGIBLE (MEDICARE REPLACEMENT/ADV ANTAGE - HMO) Po Bower [id number] Po Bower 12/14/[address] [facility] - DOS ON OR AFTER 2022 - DUAL ELIGIBLE - SKILLED NURSING OPTIONS AND ONE CARE (MEDICARE REPLACEMENT/ADV ANTAGE - HMO) Po Bower [id number] Po Bower Notes Date Note Type Note Provider Name and Address Organization Details Recorded Time 08/19/2022 text/html This was a supervised home visit with generator assembler Keysha Valentin. HPI: 62 y.o. M c/o [...] any hx of liver issues. Mbr has [facility] and Kimmy, visiting nurse was [...] ................... ................... ................... ................... ................... ................... ........ Health Promotion Specialist Note From Keysha Valentin: Sent to evaluate [...] to make them aware of pain. Consulted [facility] who advised that pt needs to contact PCP to make them aware and to potentially arrange for imaging. [facility] explained red flags to trigger ER visit. Pt made aware and advised that he will contact PCP today. No further questions or concerns at this time. ................... ................... ................... ................... ................... ................... ................... ........ Disposition: Fulfilled Damian Urrutia MD [address] [facility],[address], [place], [address], [employer] 08/19/2022 15:08:54 12/14/2023 text/html HPI: Call returned [...] assess vitals as no appointments at [facility] today or tomorrow. Reviewed home care advise, ER precautions and reasons to call back. ................... ................... ................... ................... ................... ................... ................... ........ CRC Nurse Triage Notes (Shadia Loya): Comments: CRC RN DID NOT NEED FURTHER INFO Health Promotion Specialist POC Test Results from Ronn Tovar [facility] (15:22:34) pH: 7.41 pH units pCO2: 43.1 mmHg pO2: 49.5 mmHg Na: 142 mmol/L K: 4.0 mmol/L iCa: 1.20 mmol/L Cl: 103 mmol/L TCO2: 27.1 mEq/L Hct: 38 % Hb: 13.0 g/dL Glu: 100 mg/dL Lac: 1.7 mmol/L Cr: 2.0 mg/dL BUN: 9 mg/dL A ................... ................... ................... ................... ................... ................... ................... ........ Health Promotion Specialist Note From Ronn Tovar: Pt reports increased [...] ........ Disposition: Fulfilled Augustus Osorio MD [address] [facility],[address], [place], [address], [employer] 12/14/2023 19:38:56
--- OUTSIDE RECORDS SUMMARY | 2024-10-11 15:24 | XMS_ITS | Encounter Summary ---
Author Organization [employer] Address [address] [place] [address] Care Team Providers Care Grease And Tallow Pumper Name Role Phone aSul Barbour MD Primary Care Prov ider Encounter Details Date Type Department Care Team (Late st Contact Info) Description 09/23/[address] [facility] MEDICINE [address] [place] [address] ProviderAndrea MD Social History Tobacco Use Types [...] is your housing situation today? I have lionjose m livingston 03/22/[address] you [...] Care Team (Late st Contact Info) Description 11/03/2024 8:00 AM EDT Office Visit [facility] ADULT DENTAL [address] [place], [place] [phone] Shaka Velazquez DMD 505 [place] [address] 12/13/2024 10:30 AM EDT Office Visit [facility] MED & PEDS [address] [place], [place] [phone] Saul Barbour MD 505 [place] [address] documented as of this encounter Procedures Procedure [...] documented as of this encounter Care Teams Grease And Tallow Pumper Relationship Specialty Start Date End Date Saul Barbour MD [address] [place] [address] PCP - General Internal Medicine 10/27/19 Harshad Ho 08/13/23 documented as of this encounter
--- OUTSIDE RECORDS SUMMARY | 2024-10-11 15:24 | XMS_ITS | Encounter Summary ---
Author Organization [employer] Address [address] [facility] 7t [place] [address] Care Team Providers Care Patented Hogshead Assembler Name Role Phone Saul Barbour MD Primary Care Prov ider Reason for Visit * Reason Onset Date Comments Medication Question 08/02/2023 Encounter Details Date Type Department Care Team ([facility] Contact Info) Description 08/02/2023 Telephone [facility] [address] [place] [address] Saul Barbour MD [address] [place] [address] Medication Question Social History Tobacco Use Types [...] new script for azithromycin was sent to [facility] today by and should be waiting for him. Patient reports that diarrhea has improved on the antibiotic and he is heading in the right direction. He will molded goods spot picker new script. Patient states that freestyle glucometer [...] Description 11/03/2024 8:00 AM EDT Office Visit [facility] ADULT DENTAL [address] [place] [address] Shaka Velazquez, DMD [address] [place] [address] 12/13/2024 10:30 AM EDT Office Visit [facility] MED & PEDS [address] [place] [address] Saul Barbour MD [address] [place] [address] documented as of this encounter Visit Diagnoses Not on filedocumented in this encounter Additional Health Concerns Assessment Noted Time PHQ-9 Depression Total Score: 18 024 10:06 AM EST documented as of this encounter Care Teams Patented Hogshead Assembler Relationship Specialty Start Date End Date Saul Barbour MD [address] [place] [address] PCP - General Internal Medicine 10/27/19 Harshad Ho 08/13/23 documented as of this encounter
--- OUTSIDE RECORDS SUMMARY | 2024-10-11 15:24 | XMS_ITS | Encounter Summary ---
Author Organization [employer] Address [address] [facility] [address] [place] [address] Care Team Providers Care Bar Manager Name Role Phone Saul Barbour MD Primary Care Prov ider Encounter Details Date Type Department Care Team (Latest Contact Info) Description 07/27/2018 Abstract [facility] CONVERSIONS Dental, Provider, DDS Social History Tobacco [...] Upcoming Encounters Date Type Department Care Team ( st Contact Info) Description 11/03/2024 8:00 AM EDT Office Visit [facility] AD[facility] [address] [place], [place] [phone] Shaka Velazquez DMD [address] [place] [address] 12/13/2024 10:30 AM EDT Office Visit [facility] MED & PEDS [address] [place], [place] [phone] Saul Barbour MD [address] [place] [address] documented as of this encounter Visit Diagnoses Not on filedocumented in this encounter Care Teams Bar Manager Relationship Specialty Start Date End Date Saul Barbour MD [address] [place] [address] PCP - General Internal Medicine 10/27/19 Harshad Ho 08/13/23 documented as of this encounter
--- OUTSIDE RECORDS SUMMARY | 2024-10-11 15:24 | XMS_ITS | Encounter Summary ---
Author Organization [employer] Address [address] [facility] 7[address] [place] [address] Care Team Providers Care Director Of Outside Sales Name Role Phone Saul Barbour MD Primary Care Prov ider Reason for Visit * Reason Onset Date Comments Nurse Triage 07/30/2023 Encounter Details Date Type Department Care Team ([facility] st Contact Info) Description 07/30/2023 Telephone [facility] MED & PEDS [address] [place] [address] Saul Barbour MD [address] [place] [address] Nurse Triage Social History Tobacco Use Types [...] accepted this outcome Please contact pt @ [phone] documented in this encounter Plan of Treatment Upcoming Encounters Date Type Department Care Team (Late st Contact Info) Description 11/03/2024 8:00 AM EDT Office Visit [facility] ADULT DENTAL [address] [place] [address] Shaka Velazquez DMD [address] [place] [address] 12/13/2024 10:30 AM EDT Office Visit [facility] MED & PEDS [address] [place] [address] Saul Barbour MD [address] [place] [address] documented as of this encounter Visit Diagnoses Diagnosis Diarrhea, unspecified type documented in this encounter Additional Health Concerns Assessment Noted Time PHQ-9 Depression Total Score: 18 024 10:06 AM EST documented as of this encounter Care Teams Director Of Outside Sales Relationship Specialty Start Date End Date Saul Barbour MD [address] [place] [address] PCP - General Internal Medicine 10/27/19 Harshad Ho 08/13/23 documented as of this encounter
--- OUTSIDE RECORDS SUMMARY | 2024-10-11 15:24 | XMS_ITS | Encounter Summary ---
Author Organization [employer] Address [address] [place] [address] Care Team Providers Care Chopper Operator Name Role Phone Saul Barbour MD Primary Care Prov ider Reason for Visit * Reason Comments Med Refill Encounter Details Date Type Department Care Team ([facility] st Contact Info) Description 12/13/2023 Refill [facility] MEDICINE [address] [place] [address] Daphne Owens MD [address] [place], [place] [phone] Social History Tobacco Use Types Packs/Day Years [...] Description 11/03/2024 8:00 AM EDT Office Visit [facility] ADULT DENTAL [address] [place] [address] Shaka Velazquez, IRENE [address] [place] [address] 12/13/2024 10:30 AM EDT Office Visit [facility] MED & PEDS [address] [place] [address] Saul Barbour MD [address] [place] [address] documented as of this encounter Visit Diagnoses Not on filedocumented in this encounter Additional Health Concerns Assessment Noted Time PHQ-9 Depression Total Score: 15 024 2:48 PM EDT documented as of this encounter Care Teams Chopper Operator Relationship Specialty Start Date End Date Saul Barbour MD [address] [place] [address] PCP - General Internal Medicine 10/27/19 Harshad Ho 08/13/23 documented as of this encounter
--- OUTSIDE RECORDS SUMMARY | 2024-10-11 15:24 | XMS_ITS | Encounter Summary ---
Author Organization [employer] Address [address] [place] [address] Care Team Providers Care Non Linear Editor Name Role Phone Saul Barbour MD Primary Care Prov ider Encounter Details Date Type Department Care Team (Late st Contact Info) Description 05/19/2024 Orders Only [facility] CH[facility] MED & PEDS [address] [place], [place] [phone] ProviderAndrea MD Social History Tobacco Use Types [...] Description 11/03/2024 8:00 AM EDT Office Visit [facility] ADULT DENTAL [address] [place], [place] [phone] Shaka Velazquez DMD [address] [place] [address] 12/13/2024 10:30 AM EDT Office Visit [facility] MED & PEDS [address] [place], [place] [phone] Saul Barbour MD [address] [place] [address] documented as of this encounter Procedures Procedure [...] documented as of this encounter Care Teams Non Linear Editor Relationship Specialty Start Date End Date Saul Barbour MD [address] [place] [address] PCP - General Internal Medicine 10/27/19 Harshad [facility] 08/13/23 documented as of this encounter
--- OUTSIDE RECORDS SUMMARY | 2024-10-11 15:24 | XMS_ITS | Encounter Summary ---
Author Organization [employer] Address [address] [place] [address] Care Team Providers Care In Room Dining Server Name Role Phone Saul Barbour MD Primary Care Prov ider Encounter Details Date Type Department Care Team ([facility] st Contact Info) Description 11/18/2023 Telephone [facility] CH[facility] MED & PEDS [address] [place], [place] [phone] Saul Barbour MD [address] [place] [address] Social History Tobacco Use Types Packs/Day Years [...] stated the Lancet Device is ready for belt picker. She statedshe would call pt that it is ready to belt picker. * Telephone Encounter - Nakita Cuevas [...] 11/03/2024 8:00 AM EDT Office Visit [facility] ADULT D[facility] [address] [place] [address] Shaka Velazquez, IRENE [address] [place] [address] 12/13/2024 10:30 AM EDT Office Visit [facility] MED & PEDS [address] [place] [address] Sual Barbour MD [address] [place] [address] documented as of this encounter Visit Diagnoses Not on filedocumented in this encounter Additional Health Concerns Assessment Noted Time PHQ-9 Depression Total Score: 15 024 2:48 PM EDT documented as of this encounter Care Teams In Room Dining Server Relationship Specialty Start Date End Date Saul Barbour MD [address] [place] [address] PCP - General Internal Medicine 10/27/19 Harshad Ho 08/13/23 documented as of this encounter
--- OUTSIDE RECORDS SUMMARY | 2024-10-11 15:24 | XMS_ITS | Encounter Summary ---
Author Organization [employer] Address [address] [place] [address] Care Team Providers Care Flatbed Stitcher Name Role Phone Saul Barbour MD Primary Care Prov ider Encounter Details Date Type Department Care Team (Late st Contact Info) Description 06/25/2023 Telephone [facility] MEDICINE [address] [place] [address] Saul Barbour MD [address] [place], [place] [phone] Social History Tobacco Use Types Packs/Day Years [...] [facility] ADULT DENTAL [address] [place] [address] Shaka Velazquez, IRENE [address] [place] [address] 12/13/2024 10:30 AM EDT Office Visit [facility] MED & PEDS [address] [place] [address] Saul Barbour MD [address] [place] [address] documented as of this encounter Visit Diagnoses Not on filedocumented in this encounter Additional Health Concerns Assessment Noted Time PHQ-9 Depression Total Score: 18 024 10:06 AM EST documented as of this encounter Care Teams Flatbed Stitcher Relationship Specialty Start Date End Date Saul Barbour MD [address] [place] [address] PCP - General Internal Medicine 10/27/19 Harshad Ho 08/13/23 documented as of this encounter
--- OUTSIDE RECORDS SUMMARY | 2024-10-11 15:24 | XMS_ITS | Encounter Summary ---
Author Organization [employer] Address [address] [place] [address] Care Team Providers Care Cardiac Monitor Technician Name Role Phone Saul Barbour MD Primary Care Prov ider Reason for Visit * Reason Onset Date Comments Medication Question 07/28/2022 Encounter Details Date Type Department Care Team ([facility] st Contact Info) Description 07/28/2022 Telephone [facility] MEDICINE [address] [place] [address] Saul Barbour MD [address] [place] [address] Medication Question Social History Tobacco Use Types [...] Neal LPN - 08/24/2022 8:51 AM EDT CLINIC NURSE HOANG BERNABE MESSAGE BELOW * Telephone Encounter - Thomas Tl - 07/28/2022 4:46 PM EST Tc from doug with [facility] requesting a call back regarding medication Please contact doug at [phone] documented in this encounter Plan of Treatment Upcoming Encounters Date Type Department Care Team (Late st Contact Info) Description 11/03/2024 8:00 AM EDT Office Visit [facility] ADULT DENTAL [address] [place] [address] Shaka Velazquez, IRENE [address] [place] [address] 12/13/2024 10:30 AM EDT Office Visit [facility] MED & PEDS [address] [place] [address] Saul Barbour MD [address] [place] [address] documented as of this encounter Visit Diagnoses Not on filedocumented in this encounter Additional Health Concerns Assessment Noted Time PHQ-9 Depression Total Score: 26 1216/2 022 10:52 AM EST documented as of this encounter Care Teams Cardiac Monitor Technician Relationship Specialty Start Date End Date Saul Barbour MD [address] [place] [address] PCP - General Internal Medicine 10/27/19 Harshad Ho 08/13/23 documented as of this encounter
--- OUTSIDE RECORDS SUMMARY | 2024-10-11 15:24 | XMS_ITS | Encounter Summary ---
Author Organization [employer] Address [address] [place] [address] Care Team Providers Care Artificial Inseminator Name Role Phone Saul Barbour MD Primary Care Prov ider Reason for Visit * Reason Onset Date Comments Medication Question 10/04/2024 Encounter Details Date Type Department Care Team ([facility] st Contact Info) Description 10/04/2024 Telephone [facility] MEDICINE [address] [place] [address] Saul Barbour MD [address] [place] [address] Medication Question Social History Tobacco Use Types [...] encounter Miscellaneous Notes * Telephone Encounter - Greg Cota - 10/04/2024 4:03 PM EDT TC from pt reports was seen on 09/29/[address] Crowder who prescribed Glucose tablets but insurancedenied. Would like to know if there is a generic version that provider can prescribe . documented in this encounter Plan of Treatment Upcoming Encounters Date Type Department Care Team (Late st Contact Info) Description 11/03/2024 8:00 AM EDT Office Visit [facility] ADULT DENTAL [address] [place] [address] Shaka Velazquez DMD [address] [place] [address] 12/13/2024 10:30 AM EDT Office Visit [facility] MED & PEDS [address] [place] [address] Saul Barbour MD [address] [place] [address] documented as of this encounter Visit Diagnoses Not on filedocumented in this encounter Additional Health Concerns Assessment Noted Time PHQ-9 Depression Total Score: 15 024 2:48 PM EDT documented as of this encounter Care Teams Artificial Inseminator Relationship Specialty Start Date End Date Whatley Spicer, Saul, MD [address] [place] [address] PCP - General Internal Medicine 10/27/19 Harshad Ho 08/13/23 documented as of this encounter
--- OUTSIDE RECORDS SUMMARY | 2024-10-11 15:24 | XMS_ITS | Encounter Summary ---
Author Organization [employer] Address [address] 7t [place] [address] Care Team Providers Care Bilingual Teacher Aide Name Role Phone Saul Barbour MD Primary Care Prov ider Encounter Details Date Type Department Care Team ([facility] Contact Info) Description 10/05/2022 Orders Only [facility] MED & PEDS [address] [place], [place] [phone] Saul Barbour MD 505 [place] [address] Back problem (Primary Dx) Social History Tobacco [...] Upcoming Encounters Date Type Department Care Team ([facility] Contact Info) Description 11/03/2024 8:00 AM EDT Office Visit [facility] ADULT DENTAL 505 [place], [place] [phone] Shaka Velazquez, IRENE 505 [place], [place] [phone] 12/13/2024 10:30 AM EDT Office Visit [facility]C MED & PEDS 505 [place] [address] Saul Barbour MD 505 [place] [address] documented as of this encounter Procedures Procedure [...] EDT) Ova and Parasite Trichrome SEE NOTE [facility] Comment: ??OVA AND PARASITES, CONC AND PERM SMEAR ??Micro Number: ?[id number] ??Test Status: ? Final ??Specimen Source: ?? [...] For additional information, please refer to ? https://education.[employer]/faq/XAG160 ? (This link is being provided for informational/ ? educational purposes only.)THIS TEST WAS PERFORMED AT:[facility] [address] [place], [place] ??[id number] JUDSON,MD 04/07/2023 10:0 0 AM EDT 04/07/2023 5:28 PM EDT us Daryn Crowder MD LAB MICROBIOLOGY - GENERAL ORDERABLES Final Result [facility] [address] [place] [phone] * Giardia Antigen, EIA, Stool (04/07/2023 10:00 AM EDT) Giardia Ag Stool EIA SEE NOTE [facility] Comment:GIARDIA AG, EIA, STO OL Micro Number: [id number] Test Status: Final Specimen Source: Stool Specimen Quality: Adequate Giardia Result 1: Not Detected Reference Range: Not Detected NOTE: Due to intermittent shedding, one negative sample does not necessarily rule out the presence of a parasitic infection.THIS TEST WAS PERFORMED AT:[facility] [address] [id number] APPIAH MD 04/07/2023 10:0 0 AM EDT 04/07/2023 5:28 PM EDT us Daryn Crowder MD LAB BODY FLUIDS AND STOOLS ORDERABLES Final Result [facility] [address] [place] [phone] [phone] * Gastrointestinal panel (04/07/2023 10:00 AM EDT) Campylobacter Not Detected Not Detect. [facility] Plesiomonas shigelloides Not Detected Not Detect. [facility] Salmonella Not Detected Not Detect. [facility] Vibrio Not Detected Not Detect. [facility] Vibrio cholerae Not Detected Not Detect. [facility] YERSINIA ENTEROCOLITICA Not Detected Not Detect. [facility] Enteroaggregative E. coli (EAEC) Not Detected Not Detect. [facility] Enteropathogenic E. coli (EPEC) Not Detected Not Detect. [facility] Enterotoxigenic E. coli (ETEC) lt/st Not Detected Not Detect. [facility] Shiga-like toxin-producing E. coli (STEC) stx1/stx2 Not Detected Not Detect. [facility] E coli O157 Not applicable Not Detect. [facility] Comment:E. coli containing t he O157 antigen are a subset ofShiga-like toxin- producing E. coli (STEC). Shigella/Enteroinvasive E. coli (EIEC) Not Detected Not Detect. [facility] Cryptosporidium Not Detected Not Detect. [facility] Cyclospora cayetanensis Not Detected Not Detect. [facility] Entamoeba histolytica Not Detected Not Detect. [facility] Giardia lamblia Not Detected Not Detect. [facility] Adenovirus F 40/41 Not Detected Not Detect. [facility] Astrovirus Not Detected Not Detect. [facility] Norovirus GI/GII Not Detected Not Detect. [facility] Rotavirus A Not Detected Not Detect. [facility] Sapovirus Not Detected Not Detect. [facility] Comment: All results must be [...] assay is performed by Multiplexed PCR, utilizing [employer]. 04/07/2023 10:0 0 AM EDT 04/07/2023 5:28 PM EDT us Daryn Crowder MD LAB MICROBIOLOGY - GENERAL ORDERABLES Final Result [facility] [address] [place] [phone] * CDiff Gene PCR (04/07/2023 10:00 AM EDT) CDiff Gene PCR NEGATIVE Negative [facility] Comment:If C. difficile stro ngly suspected despite one negativetest, a second test may be sent vs. empiric treatment forC. difficile infection. 04/07/2023 10:0 0 AM EDT 04/07/2023 5:26 PM EDT us Daryn Crowder MD LAB BODY FLUIDS AND STOOLS ORDERABLES Final Result Performing Organization Address [facility] Co de Phone Number [facility] [address] [place] [address] [phone] * Hepatitis C Antibody Reflex (01/21/2023 2:59 PM EDT) Hepatitis C Antibody Nonreactive Nonreactive [facility] Comment:Antibodies to HCV no t detected; does not exclude early acuteHCV infection. 01/21/2023 2:59 PM EDT 01/21/2023 5:19 PM EDT us Saul Spicer MD LAB BLOOD ORDERABL ES Final Result Performing Organization Address [facility] Co de Phone Number [facility] [address] [place] [address] [phone] documented in this encounter Visit Diagnoses Diagnosis Back problem- Primary Other unspecified back disorder documented in this encounter Additional Health Concerns Assessment Noted Time PHQ-9 Depression Total Score: 26 05/22/ 022 10:52 AM EST documented as of this encounter Care Teams Bilingual Teacher Aide Relationship Specialty Start Date End Date Saul Barbour MD [address] [place] [phone] PCP - General Internal Medicine 10/27/19 Harshad Ho 08/13/23 documented as of this encounter
--- OUTSIDE RECORDS SUMMARY | 2024-10-11 15:24 | XMS_ITS | Encounter Summary ---
Author Organization [employer] Address [address] 7t [place] [address] Care Team Providers Care Maxillofacial Prosthodontist Name Role Phone Saul Barbour MD Primary Care Prov ider Reason for Visit * Reason Onset Date Comments Durable Medical Equipment 08/03/2023 Encounter Details Date Type Department Care Team (Late st Contact Info) Description 08/03/2023 Telephone [facility] MEDICINE [address] [place] [address] Saul Barbour MD [address] [place], [place] [phone] Durable Medical Equipment Social History Tobacco Use [...] [facility] ADULT DENTAL 505 [place] [address] Shaka Velazquez DMD 505 [place] [address] 12/13/2024 10:30 AM EDT Office Visit [facility] MED & PEDS [address] [place] [address] Saul Barbour MD 505 [place] [address] documented as of this encounter Visit Diagnoses Not on filedocumented in this encounter Additional Health Concerns Assessment Noted Time PHQ-9 Depression Total Score: 18 024 10:06 AM EST documented as of this encounter Care Teams Maxillofacial Prosthodontist Relationship Specialty Start Date End Date Saul Barbour MD 505 [place] [address] PCP - General Internal Medicine 10/27/19 Harshad Ho 08/13/23 documented as of this encounter
--- OUTSIDE RECORDS SUMMARY | 2024-10-11 15:24 | XMS_ITS | Encounter Summary ---
Author Organization [employer] Address [address] 7t [place] [address] Care Team Providers Care Display Mechanic Name Role Phone Saul Barbour MD Primary Care Prov ider Reason for Visit * Reason Comments Med Change Request Encounter Details Date Type Department Care Team ([facility] Contact Info) Description 10/03/2022 Refill [facility] CHC MED & PEDS [address] [place] [address] Saul Barbour MD 505 [place] [address] Type 2 diabetes mellitus with stage 3b chronic kidney disease, without long-term current use of insulin ([facility]) Social History Tobacco Use Types [...] [facility] ADULT DENTAL [address] [place] [address] Shaka Velazquez DMD 505 [place] [address] 12/13/2024 10:30 AM EDT Office Visit [facility] MED & PEDS [address] [place] [address] Saul Barbour MD 505 [place] [address] documented as of this encounter Visit Diagnoses Diagnosis Type 2 diabetes mellitus with stage 3b chronic kidney disease, without long-term current use of insulin ([facility]) documented in this encounter Additional Health Concerns Assessment Noted Time PHQ-9 Depression Total Score: 26 022 10:52 AM EST documented as of this encounter Care Teams Display Mechanic Relationship Specialty Start Date End Date Saul Barbour MD [address] [place] [address] PCP - General Internal Medicine 10/27/19 Harshad Ho 08/13/23 documented as of this encounter
--- OUTSIDE RECORDS SUMMARY | 2024-10-11 15:24 | XMS_ITS | Encounter Summary ---
Author Organization [employer] Address [address] [facility] 7t [place] [address] Care Team Providers Care Intellectual Property Paralegal Name Role Phone Saul Barbour MD Primary Care Prov ider Reason for Visit * Reason Onset Date Comments Medication Question 06/23/2023 Encounter Details Date Type Department Care Team ([facility] Contact Info) Description 06/23/2023 Telephone [facility] CHC MED & PEDS [address] [place] [address] Saul Barbour MD [address] [place] [address] Medication Question Social History Tobacco Use Types [...] Miscellaneous Notes * Telephone Encounter - Trish Gonzalze RN - 06/30/2023 12:47 PM EST Returned call to Michelle regarding message below. Michelle informed of need to contact pt director data architecture. Information provided to Michelle to contact their [...] taking medication. You can contact Rita at [phone]. documented in this encounter Plan of Treatment Upcoming Encounters Date Type Department Care Team (Late st Contact Info) Description 11/03/2024 8:00 AM EDT Office Visit [facility] ADULT [facility] [address] [place] [address] Shaka Velazquez, IRENE 505 [place] [address] 12/13/2024 10:30 AM EDT Office Visit [facility] MED & PEDS [address] [place] [address] Saul Barbour MD [address] [place] [address] documented as of this encounter Visit Diagnoses Not on filedocumented in this encounter Additional Health Concerns Assessment Noted Time PHQ-9 Depression Total Score: 18 024 10:06 AM EST documented as of this encounter Care Teams Intellectual Property Paralegal Relationship Specialty Start Date End Date Saul Barbour MD [address] [place] [address] PCP - General Internal Medicine 10/27/19 Harshad Caring 08/13/23 documented as of this encounter
--- OUTSIDE RECORDS SUMMARY | 2024-10-11 15:24 | XMS_ITS | Encounter Summary ---
Author Organization [employer] Address [address] 7t [place] [address] Care Team Providers Care Exercise Science Instructor Name Role Phone Saul Barbour MD Primary Care Prov ider Encounter Details Date Type Department Care Team ([facility] st Contact Info) Description 10/02/2024 Orders Only 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
--- OUTSIDE RECORDS SUMMARY | 2024-10-11 15:24 | XMS_ITS | Clinical Summary ---
Author Organization [address] [facility] Address [address] [place] [address] Phone Care Team Providers Care Crate Opener Name Role Phone Saul Barbour Primary Care [...] each day. 50 g 07/11/19 26 Active Immunizations Name Administration Dates Next Due Moderna [...] PM EDT Office Visit [facility] [place] [address] [phone] Alvin Sheriff DPM [address] [address] Health Maintenance Due Date Last Done Comments [...] patient's age to complete this topic Insurance [facility] MEDICARE Member Subscriber Plan / Payer (Ef fective 2019-Present) Name:Po Bower Relation to Subscriber:Self Name:Po Bower Payer ID:[id number] Group ID:[id number] Type:Not on file Address: [facility] [place] [phone] Care Teams Crate Opener Relationship Specialty Start Date End Date Saul Barbour [address] [place], [place] PCP - General 06/16/23
--- OUTSIDE RECORDS SUMMARY | 2024-10-11 15:24 | XMS_ITS | Encounter Summary ---
Author Organization [employer] Address [address] 7t [place] [address] Care Team Providers Care Business Operations Manager Name Role Phone Saul Barbour MD Primary Care Prov ider Reason for Visit * Reason Onset Date Comments Med Refill 12/13/2023 Encounter Details Date Type Department Care Team (Late st Contact Info) Description 12/13/2023 Telephone [facility] MEDICINE [address] [place] [address] Saul Barbour MD [address] [place], [place] [phone] Med Refill Social History Tobacco Use Types [...] MG disintegrating tablet To be sent to: [facility]/pharmacy #[id number] documented in this encounter Plan of Treatment Upcoming Encounters Date Type Department Care Team ([facility] st Contact Info) Description 11/03/2024 8:00 AM EDT Office Visit [facility] ADULT DENTAL [address] [place] [address] Shaka Velazquez DMD 505 [place] [address] 12/13/2024 10:30 AM EDT Office Visit [facility] MED & PEDS [address] [place] [address] Saul Barbour MD 505 [place] [address] documented as of this encounter Visit Diagnoses Not on filedocumented in this encounter Additional Health Concerns Assessment Noted Time PHQ-9 Depression Total Score: 15 024 2:48 PM EDT documented as of this encounter Care Teams Business Operations Manager Relationship Specialty Start Date End Date Saul Barbour MD [address] [place] [address] PCP - General Internal Medicine 10/27/19 Harshad Ho 08/13/23 documented as of this encounter
--- OUTSIDE RECORDS SUMMARY | 2024-10-11 15:24 | XMS_ITS | Encounter Summary ---
Author Organization [employer] Address [address] [facility] 7t [place] [address] Care Team Providers Care Manager Traffic Name Role Phone Saul Barbour MD Primary Care Prov ider Encounter Details Date Type Department Care Team (Latest Contact Info) Description 09/12/2020 Abstract [facility] Dental, Provider, DDS Social History Tobacco [...] [facility] ADULT D[facility] [address] [place], [place] [phone] Shaka Velazquez DMD [address] [place], [place] 12/13/2024 10:30 AM EDT Office Visit [facility] MED & PEDS [address] [place], [place] [phone] Saul Barbour MD 505 [place] [address] documented as of this encounter Visit Diagnoses Not on filedocumented in this encounter Care Teams Manager Traffic Relationship Specialty Start Date End Date Saul Barbour MD [address] [place] [address] PCP - General Internal Medicine 10/27/19 Harshad Ho 08/13/23 documented as of this encounter
--- OUTSIDE RECORDS SUMMARY | 2024-10-11 15:24 | XMS_ITS | Encounter Summary ---
Author Organization [employer] Address [address] 7t [place] [address] Care Team Providers Care Lapeler Name Role Phone Saul Barbour MD Primary Care Prov ider Encounter Details Date Type Department Care Team (Late st Contact Info) Description 11/12/2023 Telephone [facility] MEDICINE [address] [place] [address] Saul Barbour MD [address] [place], [place] [phone] Social History Tobacco Use Types Packs/Day Years [...] Description 11/03/2024 8:00 AM EDT Office Visit [facility] ADULT DENTAL [address] [place] [address] Shaka Velazquez, IRENE 505 [place] [address] 12/13/2024 10:30 AM EDT Office Visit [facility] MED & PEDS [address] [place] [address] Saul Barbour MD 505 [place] [address] documented as of this encounter Visit Diagnoses Not on filedocumented in this encounter Additional Health Concerns Assessment Noted Time PHQ-9 Depression Total Score: 15 024 2:48 PM EDT documented as of this encounter Care Teams Lapeler Relationship Specialty Start Date End Date Saul Barbour MD 505 [place] [address] PCP - General Internal Medicine 10/27/19 Harshad Ho 08/13/23 documented as of this encounter
--- OUTSIDE RECORDS SUMMARY | 2024-10-11 15:24 | XMS_ITS | Encounter Summary ---
Author Organization [employer] Address [address] 7[address] [place] [address] Care Team Providers Care Test Center Administrator Name Role Phone Saul Barbour MD Primary Care Prov ider Encounter Details Date Type Department Care Team ([facility] st Contact Info) Description 09/17/2023 Orders Only [facility] CHC MED & PEDS [address] [place], [place] [phone] Saul Barbour MD 505 [place] [address] Social History Tobacco Use Types Packs/Day Years [...] Description 11/03/2024 8:00 AM EDT Office Visit [facility] ADULT DENTAL [address] [place] [address] Shaka Velazquez, IRENE 505 [place] [address] 12/13/2024 10:30 AM EDT Office Visit [facility] MED & PEDS [address] [place] [address] Saul Barbour MD 505 [place] [address] documented as of this encounter Visit Diagnoses Not on filedocumented in this encounter Additional Health Concerns Assessment Noted Time PHQ-9 Depression Total Score: 15 024 2:48 PM EDT documented as of this encounter Care Teams Test Center Administrator Relationship Specialty Start Date End Date Saul Barbour MD 505 [place] [address] PCP - General Internal Medicine 10/27/19 Harshad Ho 08/13/23 documented as of this encounter
--- OUTSIDE RECORDS SUMMARY | 2024-10-11 15:24 | XMS_ITS | Encounter Summary ---
Author Organization [employer] Address [address] [facility] 7t [place] [address] Care Team Providers Care Claim Taker Name Role Phone Saul Barbour MD Primary Care Prov ider Reason for Visit * Reason Onset Date Comments Med Refill 11/30/2023 Encounter Details Date Type Department Care Team ([facility] st Contact Info) Description 11/30/2023 Telephone [facility] CHC MED & PEDS [address] [place] [address] Saul Barbour MD 505 [place] [address] Med Refill Social History Tobacco Use Types [...] Miscellaneous Notes * Telephone Encounter - Ml Rolbes LPN - 11/30/2023 1:03 PM EDT Medication was sent to [facility] #[id number] on 11/23/23 with 1 refill. * Telephone Encounter - Nakita Cuevas - 11/30/2023 12:14 PM EDT TC from pt requesting medication refill. Medications needing refill : ondansetron ODT (Zofran-ODT) 4 MG disintegrating tablet To be sent to: [facility]/pharmacy #[id number] - [place] - [address] [place] [address] documented in this encounter Plan of Treatment Upcoming Encounters Date Type Department Care Team (Late st Contact Info) Description 11/03/2024 8:00 AM EDT Office Visit [facility] ADULT DENTAL [address] [place] [address] Shaka Velazquez, IRENE 505 [place] [address] 12/13/2024 10:30 AM EDT Office Visit [facility] MED & PEDS [address] [place] [address] Saul Barbour MD 505 [place] [address] documented as of this encounter Visit Diagnoses Not on filedocumented in this encounter Additional Health Concerns Assessment Noted Time PHQ-9 Depression Total Score: 15 024 2:48 PM EDT documented as of this encounter Care Teams Claim Taker Relationship Specialty Start Date End Date Saul Barbour MD 505 [place] [address] PCP - General Internal Medicine 10/27/19 Harshad Ho 08/13/23 documented as of this encounter
--- OUTSIDE RECORDS SUMMARY | 2024-10-11 15:24 | XMS_ITS | Encounter Summary ---
Author Organization [employer] Address [address] [facility] [address] 7[address] [place] [address] Care Team Providers Care Pharmacy Technician Instructor Name Role Phone Saul Barbour MD Primary Care Prov ider Encounter Details Date Type Department Care Team (Late st Contact Info) Description 12/13/2023 Telephone [facility] MEDICINE [address] [place] [address] Saul Barbour MD [address] [place], [place] [phone] Social History Tobacco Use Types Packs/Day Years [...] 11/03/2024 8:00 AM EDT Office Visit [facility] ADULT DENTAL 505 [place] [address] Shaka Velazquez, IRENE 505 [place] [address] 12/13/2024 10:30 AM EDT Office Visit [facility] MED & PEDS [address] [place] [address] Saul Barbour MD 505 [place] [address] documented as of this encounter Visit Diagnoses Not on filedocumented in this encounter Additional Health Concerns Assessment Noted Time PHQ-9 Depression Total Score: 15 024 2:48 PM EDT documented as of this encounter Care Teams Pharmacy Technician Instructor Relationship Specialty Start Date End Date Saul Barbour MD [address] [place] [address] PCP - General Internal Medicine 10/27/19 Harshad Ho 08/13/23 documented as of this encounter
--- OUTSIDE RECORDS SUMMARY | 2024-10-11 15:24 | XMS_ITS | Encounter Summary ---
Author Organization [employer] Address [address] [place] [address] Care Team Providers Care Gastroenterologist Name Role Phone Saul Barbour MD Primary Care Prov ider Reason for Visit * Reason Onset Date Comments Med Refill 07/13/2022 Encounter Details Date Type Department Care Team (Late st Contact Info) Description 07/13/2022 Telephone [facility] MEDICINE [address] [place] [address] Saul Barbour MD [address] [facility] [address] [place], [place] [phone] Med Refill Social History Tobacco Use Types [...] 11/03/2024 8:00 AM EDT Office Visit [facility] ADULT DENTAL [address] [place] [address] Shaka Velazquez, IRNEE 505 [place] [address] 12/13/2024 10:30 AM EDT Office Visit [facility] MED & PEDS 505 [place] [address] Saul Barbour MD 505 [place] [address] documented as of this encounter Visit Diagnoses Not on filedocumented in this encounter Additional Health Concerns Assessment Noted Time PHQ-9 Depression Total Score: 26 05/22/ 022 10:52 AM EST documented as of this encounter Care Teams Gastroenterologist Relationship Specialty Start Date End Date Saul Barbour MD 505 [place] [address] PCP - General Internal Medicine 10/27/19 Harshad Ho 08/13/23 documented as of this encounter
--- OUTSIDE RECORDS SUMMARY | 2024-10-11 15:24 | XMS_ITS | Encounter Summary ---
Author Organization [employer] Address [address] 7[address] [place] [address] Care Team Providers Care Field Artillery Radar Operator Name Role Phone Saul Barbour MD Primary Care Prov ider Reason for Visit * Reason Comments Med Refill Encounter Details Date Type Department Care Team ([facility] st Contact Info) Description 11/18/2023 Refill [facility] MEDICINE [address] [place] [address] Saul Barbour MD [address] [place] [address] Social History Tobacco Use Types Packs/Day Years [...] 11/03/2024 8:00 AM EDT Office Visit [facility] ADULT DENTAL [address] [place] [address] Shaka Velazquez, IRENE 505 [place] [address] 12/13/2024 10:30 AM EDT Office Visit [facility] MED & PEDS [address] [place] [address] Saul Barbour MD 505 [place] [address] documented as of this encounter Visit Diagnoses Not on filedocumented in this encounter Additional Health Concerns Assessment Noted Time PHQ-9 Depression Total Score: 15 024 2:48 PM EDT documented as of this encounter Care Teams Field Artillery Radar Operator Relationship Specialty Start Date End Date Saul Barbour MD 505 [place] [address] PCP - General Internal Medicine 10/27/19 Harshad Ho 08/13/23 documented as of this encounter
--- OUTSIDE RECORDS SUMMARY | 2024-10-11 15:24 | XMS_ITS | Encounter Summary ---
Author Organization [employer] Address [address] [facility] 7t [place] [address] Care Team Providers Care Rn Access Name Role Phone Saul Barbour MD Primary Care Prov ider Reason for Visit * Reason Onset Date Comments Nurse Triage 09/28/2024 ER Follow-up 09/28/2024 Encounter Details Date Type Department Care Team ([facility] st Contact Info) Description 09/28/[address] [facility] CHC MED & PEDS [address] [place] [address] Saul Barbour MD 505 [place] [address] Nurse Triage; ER Follow-up Social History Tobacco [...] pt was [facility] the [place] [facility] and had low BP and low sugar. [...] or new concerns. given appt tomorrow with [facility] at 2:20 for exam. pt [...] become worse * Telephone Encounter - Orquidea Serafin - 09/28/2024 4:25 PM EDT Patient calling to report ED visit on : Date: 09/25/24 Hospital: [facility] Seen for: fainted due to low blood sugar and low BP Symptomatic Yes *if yes message should go to Triage Contact pt at [phone] documented in this encounter Plan of Treatment Upcoming Encounters Date Type Department Care Team (Late st Contact Info) Description 11/03/2024 8:00 AM EDT Office Visit [facility] ADULT DENTAL [address] [place] [address] Shaka Velazquez DMD 505 [place] [address] 12/13/2024 10:30 AM EDT Office Visit [facility] MED & PEDS [address] [place] [address] Saul Barbour MD [address] [place] [address] documented as of this encounter Visit Diagnoses Not on filedocumented in this encounter Additional Health Concerns Assessment Noted Time PHQ-9 Depression Total Score: 15 024 2:48 PM EDT documented as of this encounter Care Teams Rn Access Relationship Specialty Start Date End Date Saul Barbour MD [address] [place] [address] PCP - General Internal Medicine 10/27/19 Harshad Ho 08/13/23 documented as of this encounter
--- OUTSIDE RECORDS SUMMARY | 2024-10-11 15:24 | XMS_ITS | Encounter Summary ---
Author Organization [employer] Address [address] [facility] [address] 7t [place] [address] Care Team Providers Care Service Department Manager Name Role Phone Saul Barbour MD Primary Care Prov ider Encounter Details Date Type Department Care Team ([facility] st Contact Info) Description 06/30/2023 Orders Only [facility] CHC MED & PEDS [address] [place], [place] [phone] Saul Barbour MD 505 [place] [address] Social History Tobacco Use Types Packs/Day Years [...] Visit [facility] ADULT DENTAL [address] [place] [address] Shaka Velazquez DMD 505 [place] [address] 12/13/2024 10:30 AM EDT Office Visit [facility] MED & PEDS [address] [place] [address] Saul Barbour MD [address] [place] [address] documented as of this encounter Visit Diagnoses Not on filedocumented in this encounter Additional Health Concerns Assessment Noted Time PHQ-9 Depression Total Score: 18 024 10:06 AM EST documented as of this encounter Care Teams Service Department Manager Relationship Specialty Start Date End Date Saul Barbour MD [address] [place] [address] PCP - General Internal Medicine 10/27/19 Harshad Ho 08/13/23 documented as of this encounter
--- OUTSIDE RECORDS SUMMARY | 2024-10-11 15:24 | XMS_ITS | Encounter Summary ---
Author Organization [employer] Address [address] 7[address] [place] [address] Care Team Providers Care Spanish Teacher Name Role Phone Saul Barbour MD Primary Care Prov ider Encounter Details Date Type Department Care Team (Late st Contact Info) Description 11/12/2023 Telephone [facility] MEDICINE [address] [place] [address] Saul Barbour MD [address] [place], [place] [phone] Social History Tobacco Use Types Packs/Day Years [...] received a missed call from PCP however communications writer does not see any notes, Please contact at [phone] documented in this encounter Plan of Treatment Upcoming Encounters Date Type Department Care Team (Late st Contact Info) Description 11/03/2024 8:00 AM EDT Office Visit [facility] ADULT DENTAL [address] [place] [address] Shaka Velazquez, IRENE 505 [place] [address] 12/13/2024 10:30 AM EDT Office Visit [facility] MED & PEDS [address] [place] [address] Saul Barbour MD 505 [place] [address] documented as of this encounter Visit Diagnoses Not on filedocumented in this encounter Additional Health Concerns Assessment Noted Time PHQ-9 Depression Total Score: 15 024 2:48 PM EDT documented as of this encounter Care Teams Spanish Teacher Relationship Specialty Start Date End Date Saul Barbour MD 505 [place] [address] PCP - General Internal Medicine 10/27/19 Harshad Ho 08/13/23 documented as of this encounter
--- OUTSIDE RECORDS SUMMARY | 2024-10-11 15:24 | XMS_ITS | Encounter Summary ---
Author Organization [employer] Address [address] [facility] 7t [place] [address] Care Team Providers Care Computer Assembler Name Role Phone Saul Barbour MD Primary Care Prov ider Reason for Visit * Reason Onset Date Comments FYI 07/28/2023 Encounter Details Date Type Department Care Team ([facility] Contact Info) Description 07/28/2023 Telephone [facility] CHC MED & PEDS [address] [place] [address] Saul Barbour MD 505 [place] [address] FYI Social History Tobacco Use Types Packs/Day [...] states that he reported this to his [facility] nurse, Christos, and was not advised to [...] told Christos is off today. Transferred to Christos's VM. She did not answer. LM to call [...] Gave him the nurses' fax number at [facility] to send notes and our call back number. Routing note to PCP so he is aware. Tc from christos with harshad ho calling to advise provider pt has been having low blood pressure and low sugars for the past week. Pt asl ohad a fall this morning. Pt is asymptomatic. Any questions, please contact christos at [phone] * Telephone Encounter - Deidra Simmons - 07/28/2023 10:14 AM EST Tc from christos with harshad ho calling to advise provider pt has been having low blood pressure and low sugars for the past week. Pt asl ohad a fall this morning. Pt is asymptomatic. Any questions, please contact christos at [phone] documented in this encounter Plan of Treatment Upcoming Encounters Date Type Department Care Team (Late st Contact Info) Description 11/03/2024 8:00 AM EDT Office Visit [facility] ADULT DENTAL [address] [place] [address] Shaka Velazquez, IRENE 505 [place] [address] 12/13/2024 10:30 AM EDT Office Visit [facility] MED & PEDS 505 [place] [address] Saul Barbour MD 505 [place] [address] documented as of this encounter Visit Diagnoses Not on filedocumented in this encounter Additional Health Concerns Assessment Noted Time PHQ-9 Depression Total Score: 18 024 10:06 AM EST documented as of this encounter Care Teams Computer Assembler Relationship Specialty Start Date End Date Saul Barbour MD [address] [place] [address] [place] [address] PCP - General Internal Medicine 10/27/19 Harshad Ho 08/13/23 documented as of this encounter
--- OUTSIDE RECORDS SUMMARY | 2024-10-11 15:24 | XMS_ITS | Encounter Summary ---
Author Organization [employer] Address [address] 7[address] [place] [address] Care Team Providers Care Ad Compositor Name Role Phone Saul Barbour MD Primary Care Prov ider Reason for Visit * Reason Comments Filling Patient presents tod ay for filings Kendra ACOSTA Encounter Details Date Type Department Care Team ([facility] st Contact Info) Description 10/11/2024 1:00 PM EDT Office Visit [facility] ADULT DENTAL [address] [place] [address] Shaka Velazquez, DMD [address] [place] [address] Dental caries (Primary Dx) Social History Tobacco Use Types [...] AM EDT documented as of this encounter Progress Notes * Shaka Velazquez DMD - 10/11/2024 1:00 PM EDT Patient ID: Po Bower is a 64 y.o. male. Time Out: Timeout Date: 10/11/24, Timeout Time: 1301 (saman #4) Location: [facility] Tooth: #4 Procedure: Worship Verified the above with patient, railway yard assistant, and provider. Confirmed via patient's chart, intraorally and by radiographs. Gravel Truck Driver: not applicable Chief Complaint Patient presents with Filling Patient presents today for carmen ACOSTA Medical Hx: Vitals: There were no vitals taken for this visit. Medications, Med Hx reviewed with patient and updated in chart. Consent Obtained: The risks, benefits, indications, potential complications, and alternatives were explained to the patient and informed consent was obtained with good understanding. Treatment Provided: Dental procedures in this visit D2394 - RESIN-BASED COMPOSITE - 4+ SURF, POSTERIOR 4 MODB (Completed) Service provider: Shaka Velazquez DMD Billing provider: Shaka Velazquez DMD D9450 - CASE PRESENTATION, DETAILED AND EXTENSIVE TREATMENT PLANNING (Completed) Service provider: Shaka Velazquez DMD Billing provider: Shaka Velazquez DMD Diagnosis: recurrent caries #4-MODB Pt notes some discomfort in this area due to food impaction Pt notes LR fractured tooth- no pain. #31-MO fractured, decay. Large DOBL fracture of #30, recurrent decay. Need updated xrays, teeth may not be restorable Recommend periodic and prophy at NV Topical: 20% Benzocaine Anesthesia: 4% Septocaine (Articaine) w/ 1:200,000 epinephrine Number of Cartridges: 1 Injection Type: Buccal infiltration Confirmed profound anesthesia. Isolation: high speed suction, cotton rolls, and cheek guard Prep: All caries removed, Existing latter-day removed, and Preparation finalized Matrix: Tofflemire and wedge and size 000 cord soaked in hemodent placed in sulcus for retraction for buccal saman, verified removal prior to discharge Etch: 37% Phosphoric Acid Etch Desensitizer: Gluma Liner/Base: None Ramos: I-Ramos Worship Material: Filtek [place] Flowable Composite and Voco Grandioso Packable Shade: A4 Polished. Occlusion & contacts verified. Patient satisfied with comfort and esthetics. Patient tolerated procedure well. Post-operative instructions were given. Patient departed alert, oriented, and in stable condition. NV: [id number] and prophy Credit Clerk: Kendra Baron Dentist: Shaka Velazquez DMD documented in this encounter Plan of Treatment Upcoming Encounters Date Type Department Care Team (Late st Contact Info) Description 11/03/2024 8:00 AM EDT Office Visit [facility] ADULT DENTAL [address] [place] [address] Shaka Velazquez DMD 505 [place] [address] 12/13/2024 10:30 AM EDT Office Visit [facility] MED & PEDS [address] [place] [address] Saul Barbour MD [address] [place] [address] Scheduled Orders Name Type Priority Associated Diagnoses Orde r Schedule PERIODIC ORAL EVALUATION - ESTABLISHED PATIENT Dental Routine 1 Occurren ana starting 10/11/2024 PROPHYLAXIS - ADULT Dental Routine 1 Occ urrences starting 10/11/2024 documented as of this encounter Procedures Procedure Name Priority Date/Time Associated Diagnosis Comments 4 MODB RESIN-BASED COMPOSITE - 4+ SURF, POSTERIOR Routine 10/11/2024 1:00 PM EDT Dental caries CASE PRESENTATION, DETAILED AND EXTENSIVE TREATMENT PLANNING Routine 10/11/2024 1:00 PM EDT Dental caries documented in this encounter Visit Diagnoses Diagnosis Dental caries- Primary Unspecified dental caries documented in this encounter Additional Health Concerns Assessment Noted Time PHQ-9 Depression Total Score: 15 03/2 024 2:48 PM EDT documented as of this encounter Care Teams Ad Compositor Relationship Specialty Start Date End Date Saul Barbour MD [address] [place] [address] PCP - General Internal Medicine 10/27/19 Harshad Ho 08/13/23 documented as of this encounter
--- OUTSIDE RECORDS SUMMARY | 2024-10-11 15:24 | XMS_ITS | Encounter Summary ---
Author Organization [employer] Address [address] [facility] 7t [place] [address] Care Team Providers Care Dock Boss Name Role Phone Saul aBrbour MD Primary Care Prov ider Reason for Visit * Reason Onset Date Comments Call Back Request 07/29/2023 Encounter Details Date Type Department Care Team ([facility] st Contact Info) Description 07/29/2023 Telephone [facility] CHC MED & PEDS [address] [place] [address] Saul Barbour MD [address] [place] [address] Call Back Request Social History Tobacco Use [...] AM EST Pt advised to go to [facility] after being triaged yesterday. * Telephone Encounter [...] 8:00 AM EDT Office Visit [facility] ADULT DENTAL [address] [place] [address] Shaka Velazquez, IRENE [address] [place] [address] 12/13/2024 10:30 AM EDT Office Visit [facility] MED & PEDS [address] [place] [address] Saul Barbour MD [address] [place] [address] documented as of this encounter Visit Diagnoses Not on filedocumented in this encounter Additional Health Concerns Assessment Noted Time PHQ-9 Depression Total Score: 18 024 10:06 AM EST documented as of this encounter Care Teams Dock Boss Relationship Specialty Start Date End Date Saul Barbour MD [address] [place] [address] PCP - General Internal Medicine 10/27/19 Harshad Ho 08/13/23 documented as of this encounter
--- OUTSIDE RECORDS SUMMARY | 2024-10-11 15:25 | XMS_ITS | Encounter Summary ---
Author Organization [employer] Address [address] [facility] [address] 7t [place] [address] Care Team Providers Care Sales Representative [facility] Name Role Phone Saul Barbour MD Primary Care Prov ider Reason for Visit * Reason Onset Date Comments Appointment 03/04/2023 Encounter Details Date Type Department Care Team ([facility] st Contact Info) Description 03/04/2023 Telephone [facility] ADULT DENTAL [address] [place] [address] Ninoska Aguilar BDS Appointment Social History Tobacco [...] calls for [facility] come in though the [facility] and that I would relay message to office. It is an appt with Dr. Aguilar and he would jose to be scheduled with someone who can see himDR documented in this encounter Plan of Treatment Upcoming Encounters Date Type Department Care Team (Late st Contact Info) Description 11/03/2024 8:00 AM EDT Office Visit [facility] ADULT DENTAL 505 [place] [address] Shaka Velazquez, IRENE [address] [place] [address] 12/13/2024 10:30 AM EDT Office Visit [facility] MED & PEDS [address] [place], [place] [phone] Saul Barbour MD [address] [place] [address] documented as of this encounter Visit Diagnoses Not on filedocumented in this encounter Additional Health Concerns Assessment Noted Time PHQ-9 Depression Total Score: 26 1216/ 022 10:52 AM EST documented as of this encounter Care Teams Sales Representative Womens [facility] Relationship Specialty Start Date End Date Saul Barbour MD [address] [place] [address] PCP - General Internal Medicine 10/27/19 Harshad Ho 08/13/23 documented as of this encounter
--- OUTSIDE RECORDS SUMMARY | 2024-10-11 15:25 | XMS_ITS | Clinical Summary ---
Author Organization [facility] Address [address] [facility] [address] [place] [address] Phone Care Team Providers Care Supervisor Carbon Paper Coating Name Role Phone Saul Whatley Primary Care [...] tablet 3 4 01/24/20 25 Active Creon 46238-495006 units capsule delayed-releas e particles TAKE 1 [...] Office Visit [facility] [address] [address] Ml Tanner ARNP Stage 3b [...] Office Visit [facility] [address] [phone] Ml Tanner ARNP [address] [address] Health Maintenance Due Date Last [...] Creatinine, Ur 20.1 Not Estab. mg/dL [facility] Protein, Ur 5.1 Not Estab. mg/dL [facility] Urine Protein/Creati nine Ratio 254(H) 0 - 200 mg/g creat [facility] Urine (Urine, Clean Catch) 09/11/2024 12:03 PM EDT 09/11/2024 Ml [facility] LAB URINE ORDERABLES Final Result [facility] [address] [place] [address] * Urine Albumin / Creatinine Ratio (09/11/2024 12:03 PM EDT) Albumin, Urine <3.0 Not Estab. ug/mL [facility] Albumin/Creatin ine Ratio <15 0 - 29 mg/g creat [facility] Comment: ? Normal: ?0 - ??29 ? Moderately increased: 30 - 300 ? Severely increased: ? >300 Urine (Urine, Clean Catch) 09/11/2024 12:03 PM EDT 09/11/2024 Ml Tanner [facility] LAB URINE ORDERABLES Final Result Performing Organization Address City/[facility]/ZIP Co de Phone Number [facility] [address] [place] [address] * CBC (09/11/2024 12:03 PM EDT) WBC 7.2 3.4 - 10.8 x10E3/uL [facility] RBC 5.17 4.14 - 5.80 x10E6/uL [facility] Hemoglobin 14.5 13.0 - 17.7 g/dL [facility] Hematocrit 44.5 37.5 - 51.0 % [facility] MCV 86 79 - 97 fL [facility] MCH 28.0 26.6 - 33.0 pg [facility] MCHC 32.6 31.5 - 35.7 g/dL [facility] RDW 13.4 11.6 - 15.4 % [facility] Platelets 216 150 - 450 x10E3/uL [facility] Blood (Blood, Venous) 09/11/2024 12:03 PM EDT 09/11/2024 Ml Tanner [facility] LAB BLOOD ORDERABLES Final Result Performing Organization Address City/[facility]/ZIP Co de Phone Number [facility] [address] [place] [address] * PTH, intact (09/11/2024 12:03 PM EDT) Pathologist [facility] PTH 52 15 - 65 pg/mL [facility] Blood (Blood, Venous) 09/11/2024 12:03 PM EDT 09/11/2024 [facility] LAB BLOOD ORDERABLES Final Result Performing Organization Address City/[facility]/ZIP Co de Phone Number [facility] [address] [place] [address] * Magnesium (09/11/2024 12:03 PM EDT) [facility] Magnesium 2.1 1.6 - 2.3 mg/dL [facility] Blood (Blood, Venous) 09/11/2024 12:03 PM EDT 09/11/2024 [facility] LAB BLOOD ORDERABLES Final Result Performing Organization Address City/[facility] Co de Phone Number [facility] [address] [place] [address] * (ABNORMAL) Renal function panel (09/11/2024 12:03 PM EDT) Pathologist [facility] Glucose 85 70 - 99 mg/dL [facility] BUN 16 8 - 27 mg/dL [facility] Creatinine 1.63(H) 0.76 - 1.27 mg/dL [facility] eGFR CKD-EPI CR 2020 47(L) >59 mL/min/1.7 3 [facility] BUN/Creatinine Ratio 10 10 - 24 [facility] Sodium 143 134 - 144 mmol/L [facility] Potassium 4.4 3.5 - 5.2 mmol/L [facility] Chloride 100 96 - 106 mmol/L [facility] Bicarbonate (CO2) 24 20 - 29 mmol/L [facility] Calcium 9.6 8.6 - 10.2 mg/dL [facility] Albumin 4.6 3.9 - 4.9 g/dL [facility] Phosphorus 3.1 2.8 - 4.1 mg/dL [facility] Blood (Blood, Venous) 09/11/2024 12:03 PM EDT 09/11/2024 Ml Tanner SOIL SCIENCE TEACHER LAB BLOOD ORDERABLES Final Result [facility] [address] [place] [address] * (ABNORMAL) Hemoglobin A1c (07/29/2022 9:17 AM EST) Hemoglobin A1C 5.8(H) (4.0-5.6) % [facility] Comment: MONITORING: In known diabetic patients, hemoglobin A1c targets should be discussed with health care provider. DIAGNOSTIC USE: ??The English Diabetes Association (ADA) and the World Health [...] Supplement 1 Testing performed or reported by [facility], a Service of [facility], [address] [place] [address] Pratik Thompson MD, Soil Science Teacher [facility]# [id number] Blood (Blood, Venous) 07/29/2022 9:17 AM EST 07/29/2022 9:20 AM EST Rachid Ortega MD LAB BLOOD ORDERABLES Final Re sult [facility] from Last 3 Months or Most Recently Relevant to Health Maintenance Insurance * Guarantor: Po Bower Account Type Relation to Patient Date of Phone Billing Address Personal/Family Self 1960 [address] [facility] [address] ([id number]) [address] [place] [address] [facility] ([id number]) Care Teams Supervisor Carbon Paper Coating Relationship Specialty Start Date End Date Saul Whatley [address] [place] [address] PCP - General Internal Medicine 07/31/21
--- OUTSIDE RECORDS SUMMARY | 2024-10-11 15:25 | XMS_ITS | Encounter Summary ---
Author Organization [employer] Address [address] [address] [address] 7[address] [place] [address] Care Team Providers Care Carton Lettering Machine Operator Name Role Phone Saul Barbour MD Primary Care Prov ider Encounter Details Date Type Department Care Team (Late Contact Info) Description 05/25/2022 Abstract [facility] ADULT DENTAL [address] [place] [address] Angus Rosales, IRENE [address] [place], [place] [phone] Social History Tobacco Use Types Packs/Day Years [...] Upcoming Encounters Date Type Department Care Team ([facility] Contact Info) Description 11/03/2024 8:00 AM EDT Office Visit [facility] ADULT DENTAL [address] [place] [address] Shaka Velazquez, IRENE [address] [place] [address] 12/13/2024 10:30 AM EDT Office Visit [facility] MED & PEDS [address] [place] [address] Saul Barbour MD [address] [place] [address] Scheduled Orders Name Type Priority Associated Diagnoses Orde r Schedule 5 B(V) 5 B(V) RESIN-BASED COMPOSITE - 1 SURFACE, POSTERIOR Dental Routine 1 Occurrenc es starting 02/04/2024 6 MDF(V)L 6 MDF(V)L RESIN-BASED COMPOSITE [...] 12:00 AM EST 12 COMPOSITE FILLING Routine 12:00 AM EST 10 MIDFL COMPOSITE FILLING [...] COMPOSITE FILLING Routine 12:00 AM EST 27 ME COMPOSITE FILLING Routine 05/25/20 12:00 AM EST 28 MOB COMPOSITE FILLING Routine 12:00 AM EST 29 MODB COMPOSITE FILLING Routine 05/25/2022 12:00 AM EST 30 MODB COMPOSITE FILLING Routine 05/25/2022 12:00 AM EST 31 MOB COMPOSITE FILLING Routine 12:00 AM EST 6 ME COMPOSITE FILLING Routine 12:00 AM EST 5 [...] documented as of this encounter Care Teams Carton Lettering Machine Operator Relationship Specialty Start Date End Date Saul Barbour MD [address] [place] [address] PCP - General Internal Medicine 10/27/19 Harshad Ho 08/13/23 documented as of this encounter
--- OUTSIDE RECORDS SUMMARY | 2024-10-11 15:25 | XMS_ITS | Encounter Summary ---
Author Organization [employer] Address [address] 7[address] [place] [address] Care Team Providers Care Complaint Specialist Name Role Phone Saul Barbour MD Primary Care Prov ider Reason for Visit * Reason Onset Date Comments Med Refill 04/25/2024 Encounter Details Date Type Department Care Team ([facility] st Contact Info) Description 04/25/2024 Telephone [facility] MED[facility]INE [address] [place] [address] Saul Barbour MD [address] [place] [address] Med Refill Social History Tobacco Use Types [...] 2:46 PM EST Medication was sent to [facility] #[id number] on 04/21/24 with 1 refill. * Telephone Encounter - Nicole Goldberg - 04/25/2024 2:34 PM EST TC from pt requesting medication refill. Medications needing refill : ondansetron ODT (Zofran-ODT) 4 MG disintegrating tablet To be sent to: [facility]/pharmacy #[id number] documented in this encounter Plan of Treatment Upcoming Encounters Date Type Department Care Team (Late st Contact Info) Description 11/03/2024 8:00 AM EDT Office Visit [facility] ADULT DENTAL [address] [place] [address] Shaka Velazquez DMD 505 [place] [address] 12/13/2024 10:30 AM EDT Office Visit [facility] MED & PEDS [address] [place] [address] Saul Barbour MD 505 [place] [address] documented as of this encounter Visit Diagnoses Not on filedocumented in this encounter Additional Health Concerns Assessment Noted Time PHQ-9 Depression Total Score: 15 024 2:48 PM EDT documented as of this encounter Care Teams Complaint Specialist Relationship Specialty Start Date End Date Saul Barbour MD [address] [place] [address] PCP - General Internal Medicine 10/27/19 Harshad Caring 08/13/23 documented as of this encounter
--- OUTSIDE RECORDS SUMMARY | 2024-10-11 15:25 | XMS_ITS | Encounter Summary ---
Author Organization [employer] Address [address] [facility] 7t [place] [address] Care Team Providers Care Correctional Maintenance Technician Name Role Phone Saul Barbour MD Primary Care Prov ider Reason for Visit * Reason Onset Date Comments Med Refill 06/23/2023 Encounter Details Date Type Department Care Team ([facility] st Contact Info) Description 06/23/[address] [facility] CHC MED & PEDS [address] [place] [address] Saul Barbour MD 505 [place] [address] Med Refill Social History Tobacco Use Types [...] Miscellaneous Notes * Telephone Encounter - Mikel Tod - 06/23/2023 9:46 AM EST TC from [facility] Visiting nurse requesting medication refill. Medications needing refill : metoprolol tartrate (Lopressor) 25 MG tablet To be sent to: [facility]/pharmacy #[id number] documented in this encounter Plan of Treatment Upcoming Encounters Date Type Department Care Team (Late st Contact Info) Description 11/03/2024 8:00 AM EDT Office Visit [facility] ADULT DENTAL [address] [place] [address] Shaka Velazquez DMD 505 [place] [address] 12/13/2024 10:30 AM EDT Office Visit [facility] MED & PEDS [address] [place] [address] Saul Barbour MD 505 [place] [address] documented as of this encounter Visit Diagnoses Not on filedocumented in this encounter Additional Health Concerns Assessment Noted Time PHQ-9 Depression Total Score: 18 024 10:06 AM EST documented as of this encounter Care Teams Correctional Maintenance Technician Relationship Specialty Start Date End Date Saul Barbour MD [address] [place] [address] PCP - General Internal Medicine 10/27/19 Harshad Ho 08/13/23 documented as of this encounter
--- OUTSIDE RECORDS SUMMARY | 2024-10-11 15:25 | XMS_ITS | Clinical Summary ---
Author Organization [employer] Address [address] 7[address] [place] [address] Care Team Providers Care Data Technical Lead Name Role Phone Saul Barbour MD [...] 4 TO 6 HOURS NEEDED FOR WHEEZING 022 Active QUEtiapine (SEROquel) 100 MG tablet Take [...] disease, without long-term current use of insulin ([facility]) 1 each by Other route every 8 (eight) hours. 3x daily 100 each 11 024 Active Alcohol Swabs (Alcohol Prep) 70 % padsIndications:T ype 2 diabetes mellitus with stage 3b chronic kidney disease, with long-term current use of insulin ([facility]) PLACE 1 EACH ON THE SKIN 3 TIMES DAILY. 100 each 11 024 Active FreeStyle lancetsIndication s:Type 2 diabetes mellitus with stage 3a chronic kidney disease, without long-term current use of insulin ([facility]) USE TO TEST BLOOD SUGAR ONCE A DAY 100 each 1 024 Active ARIPiprazole (Abilify) 2.5 MG split tablet 1 tablet DAILY (route: oral) Active Alcohol Swabs (Alcohol Prep) pads Per instructions 3 TIMES DAILY (route: topical) Active tiZANidine (Zanaflex) 2 MG capsule 1 tablet EVERY 8 HOURS (route: oral) 024 Active Sod Fluoride-Potassiu m Nitrate 1.1-5 % pasteIndications: Dental caries [place] teeth for 2 minutes, morning and night. Spit, do not rinse. Do not eat or drink anything for 30 minutes following brushing. 112 g 3 024 Active Creon [id number] units capsule delayed-release particles capsule TAKE 1 [...] disease, with long-term current use of insulin ([facility]) TAKE 1 TABLET BY MOUTH 2 TIMES DAILY 180 tablet 3 025 Active acetaminophen (Tylenol 8 Hour) 650 MG ER tablet TAKE 1 TABLET BY MOUTH EVERY 8 HOURS 90 tablet 1 025 Active glucose 4 g chewable tabletIndications :Hypoglycemia Chew 4 tablets (16 g) if needed for low blood sugar. 50 tablet 12 025 2025 Active psyllium (Metamucil Smooth Texture) 58.6 % powder Take 5.12 g (3 g of fiber) by mouth 2 times daily. 283 g 024 2024 acetaminophen (Tylenol 8 Hour) 650 [...] conditions 1 PVC (premature ventricular contraction) 03/27/20 24 Right lower quadrant pain 03/27/2024 SOB (shortness [...] Encounters Date Type Department Care Team Description 10/11/2024 1:00 PM EDT Office Visit [facility] ADULT DENTAL [address] [place] [address] Shaka Velazquez DMD Dental caries (Primary Dx) 10/04/2024 Telephone [facility] MEDICINE [address] [place] [address] Saul Barbour MD Medication Question 10/03/2024 Telephone [facility] MED & PEDS [address] [place] [address] Saul Barbour MD Results 10/02/2024 Orders Only [facility] MED [facility] PED[facility] [address] [place] [address] Daryn Crowder MD CKD stage 3 secondary to diabetes ([facility]/H[facility]) (Primary Dx) 09/29/2024 2:20 PM EDT Office Visit [facility] MED [facility] PED[facility] [address] [place] [address] Daryn Crowder MD Pre-syncope (Primary Dx); Hypoglycemia; Type 2 diabetes mellitus with stage 3a chronic kidney disease, without long-term current use of insulin ([facility]) 09/29/2024 Travel 09/28/2024 Telephone [facility] & PED[facility] [address] [place] [address] Saul Barbour MD Nurse Triage; ER Follow-up 09/23/2024 Refill [facility] CH[facility] MED & PEDS [address] [place] [address] Salu Barbour MD 08/31/2024 Refill [facility] MED & PEDS [address] [place] [address] Saul Barbour MD Type 2 diabetes mellitus with stage 3b chronic kidney disease, with long-term current use of insulin ([facility]) 07/29/2024 Refill [facility] MED & PEDS [address] [place] [address] Saul Barbour MD 07/23/2024 Refill [facility] MED & PEDS [address] [place] [address] Saul Barbour MD 07/20/2024 Refill [facility] MED & PEDS [address] [place], [place] [phone] Saul Barbour MD Essential hypertension; Diarrhea, unspecified type 07/16/2024 Refill [facility] MED[facility]INE [address] [place] [address] Saul Barbour MD from Last 3 Months [...] 8:00 AM EDT Office Visit [facility] [address] [place] [address] Shaka Velazquez DMD [address] [place], [place] [phone] 12/13/2024 10:30 AM EDT Office Visit [facility] P[facility] [address] [place], [place] [phone] Saul Barbour MD [address] [place], [place] [phone] Health Maintenance Due Date Last Done Comments CT Colonography 1961 Dental X-Ray: Full Mouth 1961 FIT DNA/Cologuard 1961 FIT 1961 FOBT 1961 HIV Screening 1961 Sigmoidoscopy 1961 Eye Exam 1971 Alcohol/Substance Use Screening 1973 RSV Patients and Patients Aged 60 years or older (1 - Risk 60-74 years 1-dose series) 2021 Lipid Panel 02/17/2023 02/17/2022, 03/3 , 05/29/2021 Diabetes: Foot Exam 06/15/2024 06/15/2023, 06/15/2023, 06/15/2023, Additional history exists Dental Oral Exam 08/05/2024 02/04/2024, 06/23/2022 Dental Prophylaxis 08/05/2024 02/04/2024, 07/16/2022 Depression Screening 08/18/2024 08/19/2023, 03/14/20 24 Diabetes: Hemoglobin A1C 10/30/2024 024, 09/15/2023, 03/09/2023, Additional history exists SDOH Screening 11/01/2024 11/02/2023 Dental X-Ray: Bitewings 02/04/2025 02/04/2024, 06/23 Tobacco Screening 10/11/2025 10/11/2024 Colonoscopy 11/06/2031 11/05/2021, 05/04/2011 Colorectal Cancer Screening [...] Procedure Name Priority Date/Time Associated Diagnosis Comments CASE PRESENTATION, DETAILED AND EXTENSIVE TREATMENT PLANNING Routine 10/11/2024 1:00 PM EDT Dental caries 4 MODB RESIN-BASED COMPOSITE - 4+ SURF, POSTERIOR Routine 10/11/2024 1:00 PM EDT Dental caries COMPREHENSIVE METABOLIC PANEL Routine 09/29/2024 2:55 PM EDT Hypoglycemia POCT GLUCOSE Routine 09/29/2024 2:38 PM EDT Type 2 diabetes mellitus with stage 3a chronic kidney disease, without long-term current use of insulin ([facility]) HEMOGLOBIN A1C Routine 05/02/2024 11:16 [...] Relevant to Health Maintenance Results * (ABNORMAL) Comprehensive Metabolic Panel (09/29/2024 2:55 PM EDT) Sodium 139 135 - 145 mmol/L [facility] Potassium 4.1 3.3 - 5.1 mmol/L [facility] Comment:Mild Hemolysis.Inter pret result with caution Chloride 105 96 - 108 mmol/L [facility] Carbon Dioxide 24 22 - 29 mmol/L [facility] Anion Gap 14 12 - 20 [facility] Urea Nitrogen (BUN) 23(H) 9 - 16 mg/dL [facility] Creatinine, Serum 2.22(H) 0.5 - 1.4 mg/dL [facility] Estimated Glomerular Filt Rate 30 [facility] Comment:Chronic Kidney Disea se: Estimated GFR < 60 mL/min/[id number] Kidney Disease: Estimated GFR < 15 mL/min/1.73m2 Glucose 82 60 - 115 mg/dL [facility] Calcium 9.3 8.4 - 10.2 mg/dL [facility] Bilirubin, Total 0.2 0.0 - 1.0 mg/dL [facility] Aspartate Amino Transferase 36 5 - 37 U/L [facility] Comment:Mild Hemolysis.Inter pret result with caution Alanine Aminotransferase 27 0 - 40 U/L [facility] Total Protein 7.2 6.5 - 8.0 g/dL [facility] Comment:Mild Hemolysis.Inter pret result with caution Albumin Level 4.0 3.5 - 5.0 g/dL [facility] Alkaline Phosphatase 64 39 - 117 U/L [facility] Blood Venous blood specimen / Unknown 09/29/2024 2:55 PM EDT 09/29/2024 5:34 PM EDT Daryn Crowder MD LAB BLOOD ORDERABLES Final Result [facility] [address] [place] [phone] * POCT Glucose (09/29/2024 2:38 PM EDT) Glucose Blood, POC 98 60 - 200 mg/dL QC Media Lot # [id number] Lot# Expiration Date Blood Capillary blood specimen / Unknown 09/29/2024 2:38 PM EDT Daryn Crowder MD POINT OF CARE TEST ENTER/ED IT ORDERABLES Final Result * Hemoglobin A1c (05/02/2024 11:16 AM EST) Blood Venous blood specimen / Unknown Andrea Provider LAB BLOOD ORDERABLES Shaneka l Result * Hepatitis C Antibody Reflex (01/21/2023 2:59 PM EDT) Hepatitis C Antibody Nonreactive Nonreactive [facility] Comment:Antibodies to HCV no t detected; does not exclude early acuteHCV infection. 01/21/2023 2:59 PM EDT 01/21/2023 5:19 PM EDT us Saul Spicer MD LAB BLOOD ORDERABL ES Final Result Performing Organization Address City/[facility]/ZIP Co de Phone Number [facility] [address] [place] [phone] * (ABNORMAL) LIPID PANEL, STANDARD (02/17/2022 11:32 AM EDT) Chol/HDLC Ratio 3.7 <5.0 (calc) [facility] Cholesterol, Total 148 <200 mg/dL [...] ?? Mohan SS et al. FABIOLA. 2013;310(19): 2223-9352 ?? (http://education.[employer]/faq/MNW702) Non-HDL Cholesterol 108 <130 mg/dL (calc) [facility] Comment: For patients with diabetes plus 1 major ASCVD risk ?? factor, treating to a non-HDL-C goal of <100 mg/dL ?? (LDL-C of <70 mg/dL) is considered a therapeutic ?? option. Triglycerides 275(H) <150 mg/dL [facility] Comment: ?? If a non-fasting specimen was collected, consider repeat triglyceride testing on a fasting specimen if clinically indicated. ?? Crystal et al. J. of Clin. Lipidol. 2015;9:129-169. ?? 02/17/2022 11:3 2 AM EDT us Saul Spicer MD LAB BLOOD ORDERABL ES Final Result [facility] [address] [place] [place] [phone], * Hm Colonoscopy (11/05/2021) Colonoscopy performed us Historical Provider MD HEALTH MAINTENANCE Final Result from Last 3 Months or Most Recently Relevant to Health Maintenance Insurance [employer] ONE CARE < 65 [facility] ONE CARE < 65 DENTAL [facility] Care Teams Data Technical Lead Relationship Specialty Start Date End Date WhatleySaul Restrepo MD [address] [place] [phone] PCP - General Internal Medicine 10/27/19 Harshad Ho 08/13/23
--- OUTSIDE RECORDS SUMMARY | 2024-10-11 15:25 | XMS_ITS | Encounter Summary ---
Author Organization [employer] Address [address] [facility] 7t [place] [address] Care Team Providers Care Cream Buyer Name Role Phone Saul Barbour MD Primary Care Prov ider Reason for Visit * Reason Comments Med Refill Encounter Details Date Type Department Care Team (Late Contact Info) Description 11/04/[address] [facility] MED & PEDS [address] [place] [address] Saul Barbour MD [address] [place] [address] Type 2 diabetes mellitus with stage 3b chronic kidney disease, with long-term current use of insulin ([facility]); Essential hypertension Social History Tobacco Use Types [...] Department Care Team (Late Contact Info) Description 11/03/2024 8:00 AM EDT Office Visit [facility] ADULT DENTAL [address] [place] [address] Shaka Velazquez DMD [address] [place] [address] 12/13/2024 10:30 AM EDT Office Visit [facility] CHC MED & PEDS [address] [place] [address] Saul Barbour MD [address] [place] [address] documented as of this encounter Visit Diagnoses Diagnosis Type 2 diabetes mellitus with stage 3b chronic kidney disease, with long-term current use of insulin ([facility]) Essential hypertension Unspecified essential hypertension documented in this encounter Additional Health Concerns Assessment Noted Time PHQ-9 Depression Total Score: 26 12/ 022 10:52 AM EST documented as of this encounter Care Teams Cream Buyer Relationship Specialty Start Date End Date Saul Barbour MD [address] [place] [address] PCP - General Internal Medicine 10/27/19 Harshad Ho 08/13/23 documented as of this encounter
--- OUTSIDE RECORDS SUMMARY | 2024-10-11 15:25 | XMS_ITS | Encounter Summary ---
Author Organization [employer] Address [address] [facility] 7t [place] [address] Care Team Providers Care Paper Processing Machine Helper Name Role Phone Saul Barbour MD Primary Care Prov ider Reason for Visit * Reason Comments Med Change Request Encounter Details Date Type Department Care Team (Late Contact Info) Description 11/10/2022 Refill [facility] CHC MED & PEDS [address] [place] [address] Daryn Crowder MD [address] [place] [address] Chronic midline low back pain without sciatica [...] Description 11/03/2024 8:00 AM EDT Office Visit [facility] ADULT DENTAL [address] [place] [address] Shaka Velazquez DMD [address] [place] [address] 12/13/2024 10:30 AM EDT Office Visit [facility] MED & PEDS [address] [place] [address] Saul Barbour MD [address] [place] [address] documented as of this encounter Visit Diagnoses Diagnosis Chronic midline low back pain without sciatica documented in this encounter Additional Health Concerns Assessment Noted Time PHQ-9 Depression Total Score: 26 12/ 022 10:52 AM EST documented as of this encounter Care Teams Paper Processing Machine Helper Relationship Specialty Start Date End Date Salu Barbour MD [address] [place] [address] PCP - General Internal Medicine 10/27/19 Harshad Ho 08/13/23 documented as of this encounter
--- OUTSIDE RECORDS SUMMARY | 2024-10-11 15:25 | XMS_ITS | Encounter Summary ---
Author Organization [employer] Address [address] [facility] 7t [place] [address] Care Team Providers Care Scale Operator Name Role Phone Saul Barbour MD Primary Care Prov ider Encounter Details Date Type Department Care Team (Late st Contact Info) Description 04/23/2022 Abstract [facility] MED & PEDS [address] [place], [place] [phone] ProviderAndrea MD Social History Tobacco Use Types [...] Description 11/03/2024 8:00 AM EDT Office Visit [facility] ADULT DENTAL [address] [place] [address] Shaka Velazquez DMD 505 [place] [address] 12/13/2024 10:30 AM EDT Office Visit [facility] MED & PEDS [address] [place] [address] Saul Barbour MD [address] [place] [address] documented as of this encounter Procedures Procedure Name Priority Date/Time Associated Diagnosis Comments COLONOSCOPY Routine 11/05/2021 HM COLONOSCOPY Routine 05/04/2011 documented in this encounter Results * Hm Colonoscopy (11/05/2021) Colonoscopy performed us Historical Provider HEALTH MAINTENANCE Final Result * Colonoscopy (05/04/2011) Colonoscopy performed Historical Provider HEALTH MAINTENANCE Final Result documented in this encounter Visit Diagnoses Not on filedocumented in this encounter Care Teams Scale Operator Relationship Specialty Start Date End Date WhatleySaul Restrepo MD [address] [place] [phone] PCP - General Internal Medicine 10/27/19 Harshad Ho 08/13/23 documented as of this encounter
--- OUTSIDE RECORDS SUMMARY | 2024-10-11 15:25 | XMS_ITS | Encounter Summary ---
Author Organization [employer] Address [address] 7t [place] [address] Care Team Providers Care Sap Portal Architect Name Role Phone Saul Barbour MD Primary Care Prov ider Encounter Details Date Type Department Care Team ([facility] st Contact Info) Description 12/23/2023 Orders Only [facility] MED & PEDS [address] [place], [place] [phone] Daryn Crowder MD [address] [place] [address] Right foot pain (Primary Dx) Social History [...] Visit [facility] ADULT DENT[facility] [address] [place] [address] Shaka Velazquez DMD [address] [place] [address] 12/13/2024 10:30 AM EDT Office Visit [facility] MED & PEDS [address] [place] [address] Saul Barbour MD [address] [place] [address] Scheduled Orders Name Type Priority Associated Diagnoses [...] as of this encounter Care Teams Sap Portal Architect Relationship Specialty Start Date End Date Saul Barbour MD [address] [place] [phone] PCP - General Internal Medicine 10/27/19 Harshad Ho 08/13/23 documented as of this encounter
--- OUTSIDE RECORDS SUMMARY | 2024-10-11 15:25 | XMS_ITS | Encounter Summary ---
Author Organization [employer] Address [address] [facility] 7t [place] [address] Care Team Providers Care Ceramics Technician Name Role Phone Saul Barbour MD Primary Care Prov ider Reason for Visit * Reason Onset Date Comments Order 12/21/2023 Encounter Details Date Type Department Care Team ([facility] Contact Info) Description 12/21/2023 Telephone [facility]ED[facility] [address] [place] [address] Saul Barbour MD [address] [place] [address] Order Social History Tobacco Use Types Packs/Day [...] Upcoming Encounters Date Type Department Care Team ([facility] st Contact Info) Description 11/03/2024 8:00 AM EDT Office Visit [facility] ADULT DENTAL [address] [place] [address] Shaka Velazquez DMD 505 [place] [address] 12/13/2024 10:30 AM EDT Office Visit [facility] MED & PEDS [address] [place] [address] Saul Barbour MD [address] [place] [address] documented as of this encounter Visit Diagnoses Not on filedocumented in this encounter Additional Health Concerns Assessment Noted Time PHQ-9 Depression Total Score: 15 024 2:48 PM EDT documented as of this encounter Care Teams Ceramics Technician Relationship Specialty Start Date End Date Saul Barbour MD [address] [place] [address] PCP - General Internal Medicine 10/27/19 Harshad Ho 08/13/23 documented as of this encounter
[2024-10-11 18:35] LABS: Anion Gap 15 (12-20); Blood Urea Nitrogen 12 mg/dL (9-16); Carbon Dioxide 28 mmol/L (22-29); Chloride 104 mmol/L (96-108); Estimated Glomerular Filt Rate 30; Glucose Random 77 mg/dL (60-115); Sodium 143 mmol/L (135-145)
== END 2024-10-11 14:10 | disposition home or self-care (01) ==
LOC: HO.CHCLDS 14:09
PROVIDERS: Visit Provider Internal Medicine
DX: E11.22 Type 2 diabetes mellitus with diabetic chronic kidney disease (principal); N18.30 Chronic kidney disease, stage 3 unspecified
CPT/HCPCS: 36415; 80048

== ENCOUNTER 2024-12-13 10:58 | Outpatient (REF) | payer OTHER, SELFPAY ==
--- OUTSIDE RECORDS SUMMARY | 2024-12-09 23:59 | XMS_ITS | Continuity of Care Document ---
Author Organization [facility] Address [address] [facility], 3r d Floor, [address] [place] [id number]- Care Team Providers Care Manager Packaging Name Role Phone Chacorta Spicer MD, Saul Primary Care Phys [facility] Encounter [facility] Date(s): 11/09/24 - 12/09/24 [facility] [address] [place] [address], [address] [place] [id number] Encounter Type: Triage Allergies, Adverse Reactions, Alerts Substance Criticality Severity Reaction Reaction Severity Status Mold upper resp congestion Active Pollen sneezing Active Immunizations Given and Recorded Vaccine Date Status Refusal Reason tetanus/diphtheria/pertussis, acel(Tdap) 01/30/23 Given tetanus/diphtheria/pertussis, acel(Tdap) 02/17/18 Given tetanus/diphtheria/pertussis, acel(Tdap) 02/03/16 Recorded pneumococcal 20-valent conjugate vaccine 12/26/22 Recorded [id number] bivalent booster vax 04/26/22 Recorded influenza virus [...] 11/18/16 Recorded pneumococcal 23-valent vaccine 03/24/15 Given Medications Acetaminophen = 500 mg, By Mouth, 3 times a day, PRN Pain , Moderate, 0 Refills, Maintenance, 09/19/24 8:32:00 AM EDT, Partial fill upon patient request if the prescription is for a schedule II opioid drug. Start Date: 09/19/24 Status: Ordered Repeat number: 1 albuterol-ipratropium 3 mg-0.5 mg/3 ml inhalation solution 3 mL, Inhalation, Every 6 hours, # 30 each, 0 Refills, Maintenance, 05/15/23 10:00:00 AM EST, Solution, Partial fill upon patient request if the prescription is for a schedule II opioid drug. Start Date: 05/15/23 Status: Ordered Quantity: 30.0 Unit: each Repeat number: 1 amLODIPine 10 mg oral tablet 10 mg, 1, tablet, By Mouth, Daily, Refills 0, Maintenance, 03/20/24 8:57:00 AM EDT, Partial fill upon patient request if the prescription is for a schedule II opioid drug. Start Date: 03/20/24 Status: Ordered Repeat number: 1 ARIPiprazole 5 mg oral tablet 5 mg, 1, tablet, By Mouth, Daily, Refills 0, Maintenance, 12/28/23 10:17:00 AM EDT, Partial fill upon patient request if the prescription is for a schedule II opioid drug. Start Date: 12/28/23 Status: Ordered Repeat number: 1 aspirin 81 mg oral delayed release tablet 81 mg, 1, tablet, By Mouth, Daily, Refills 0, Maintenance, 09/19/24 8:32:00 AM EDT, Partial fill upon patient request if the prescription is for a schedule II opioid drug. Start Date: 09/19/24 Status: Ordered Repeat number: 1 atorvastatin 80 mg oral tablet 1 tablet = 80 mg, By Mouth, Daily, # 30 tablet, 0 Refills, Maintenance, 07/25/21 3:38:00 PM EST, Tablet, [facility] 3, Partial fill upon patient request if the prescription is for a schedule II opioid drug., 175, cm, 07/24/21 8:09:00 EST, Height, 86.5, kg, 07/23/21 16:07:00 EST, Dry Weight Start Date: 07/25/21 Status: Ordered Quantity: 30.0 Unit: tablet Repeat number: 1 azelastine 137 mcg/inh (0.1%) nasal spray Nares, Both, Daily, PRN sneezing, allergy symptoms, 90 mL, 0 Refill(s), SPRAY 1 SPRAY INTRANASALLY 2 TIMES A DAY, 0 Refills, 08/25/23 5:52:00 PM EDT, Partial fill upon patient request if the prescription is for a schedule II opioid drug. Start Date: 08/25/23 Status: Ordered Repeat number: 1 buPROPion 300 mg/24 hours (XL) oral tablet, extended release 1 tablet = 300 mg, By Mouth, Daily, # 30 tablet, 0 Refills, Maintenance, 07/25/21 3:38:00 PM EST, XLTablet, [facility], Partial fill upon patient request if the prescription is for a schedule II opioid drug., 175, cm, 07/24/21 8:09:00 EST, Height, 86.5, kg, 07/23/21 16:07:00 EST, Dry Weight Start Date: 07/25/21 Stop Date: 08/24/21 Status: Ordered Quantity: 30.0 Unit: tablet Repeat number: 1 Creon 24,000 units oral delayed release capsule See Instructions, 2 capsule By Mouth 3 times a day with meals and 1 capsule with each snack, # 240 capsule, 6 Refills, Maintenance, 12/28/23 11:07:00 AM EDT, EC Capsule, [facility]/pharmacy #[id number], Partial fill upon patient request if the prescription is for a schedule II opioid drug., 175.26, cm, 12/28/23 10:09:00 EDT, Height, 72.8, kg, 09/28/23 13:20:00 EDT, Dry Weight Start Date: 12/28/23 Status: Ordered Quantity: 240.0 Unit: capsule Repeat number: 7 Creon 36,000 units oral delayed release capsule 1 capsule, By Mouth, 3 times a day with meals, # 270 capsule, 0 Refills, Maintenance, 05/15/23 3:52:00 PM EST, [facility] 3, Partial fill upon patient request if the prescription is for a schedule II opioid drug., 1 capsule By Mouth 3 times a day with meals, 175.26, cm, 05/15/23 11:14:00EST, Height, 77.3, kg, 05/15/23 3:55:00 EST, Dry Weight Start Date: 05/15/23 Status: Ordered Quantity: 270.0 Unit: capsule Repeat number: 1 D3 1000 intl units (25 mcg) oral tablet 90 each, 0 Refill(s), TAKE 1 TABLET BY MOUTH EVERY DAY, 0 Refills, 08/25/23 6:01:00 PM EDT, Partial fill upon patient request if the prescription is for a schedule II opioid drug. Start Date: 08/25/23 Status: Ordered Repeat number: 1 Daily Sadi oral tablet 1 tablet, By Mouth, Daily, # 90 tablet, 0 Refills, Maintenance, 05/15/23 2:51:00 PM EST, Tablet, [facility]/pharmacy #[id number], Partial fill upon patient request if the prescription is for a schedule II opioid drug., 1 tablet By Mouth Daily, 175.26, cm, 05/15/23 11:14:00 EST, Height, 77.3, kg, 05/15/23 3:55:00EST, Dry Weight Start Date: 05/15/23 Status: Ordered Quantity: 90.0 Unit: tablet Repeat number: 1 dicyclomine 10 mg oral capsule 1 capsule = 10 mg, By Mouth, Daily, 0 Refills, Maintenance, 12/28/23 10:16:00 AM EDT, Partial fill upon patient request if the prescription is for a schedule II opioid drug. Start Date: 12/28/23 Status: Ordered Repeat number: 1 famotidine 20 mg oral tablet 20 mg, 1, tablet, By Mouth, Daily, # 90 tablet, Refills 1, Tot. Refills 1, Maintenance, 07/31/24 8:53:00 AM EST, Route to Pharmacy Electronically, [facility]/pharmacy #[id number], Partial fill upon patient requestif the prescription is for a schedule II opioid drug., 175.26, cm, 03/30/24 9:52:00 EDT, Height, 72.8, kg, 09/28/23 13:20:00 EDT, Dry Weight Start Date: 07/31/24 Status: Ordered Quantity: 90.0 Unit: tablet Repeat number: 2 FLUoxetine 60 mg oral tablet 1 tablet = 60 mg, By Mouth, Daily in AM, # 30 tablet, 0 Refills, Maintenance, 05/15/23 9:48:00 AM EST, Tablet, Partial fill upon patient request if the prescription is for a schedule II opioid drug. Start Date: 05/15/23 Status: Ordered Quantity: 30.0 Unit: tablet Repeat number: 1 furosemide 40 mg oral tablet 180 each, 0 Refill(s), TAKE 1 TABLET (40 MG TOTAL) BY MOUTH IN THE MORNING AND 1 TABLET (40 MG TOTAL) IN THE EVENING., Refills 0, 08/25/23 5:57:00 PM EDT, Partial fill upon patient request if the prescription is for a schedule II opioid drug. Start Date: 08/25/23 Status: Ordered Repeat number: 1 gabapentin 600 mg oral tablet 1 tablet = 600 mg, 2 times a day Start Date: 03/18/22 Status: Ordered Repeat number: 1 Golytely - oral powder for reconstitution 240 mL, By Mouth, Every 10 minutes, # 1 each, 0 Refills, Maintenance, 03/20/24 12:49:00 PM EDT, RECPowder, [facility]/pharmacy #[id number], Partial fill upon patient request if the prescription is for a scheduleII opioid drug., 240 mL By Mouth Every 10 minutes, 175.26, cm, 03/20/24 8:52:00 EDT, Height, 72.8, kg, 09/28/23 13:20:00 EDT, Dry Weight Start Date: 03/20/24 Status: Ordered Quantity: 1.0 Unit: each Repeat number: 1 Jardiance 25 mg oral tablet 1 tablet = 25 mg, By Mouth, Daily in AM, 0 Refills, Maintenance, 09/22/24 1:46:00 PM EDT, Partial fill upon patient request if the prescription is for a schedule II opioid drug. Start Date: 09/22/24 Status: Ordered Repeat number: 1 LORazepam 1 mg oral tablet 1 tablet = 1 mg, By Mouth, 3 times a day, PRN for anxiety, # 7 tablet, 0 Refills, Maintenance, 01/04/23 4:01:00 PM EDT, Tablet, [facility]/pharmacy #[id number], Partial fill upon patient request if the prescription is for a schedule II opioid drug., 176, cm, 10/26/22 13:33:00 EDT, Height, 82.1, kg, 10/23/22 13:40 :00 EDT, Dry Weight Start Date: 01/04/23 Status: Ordered Quantity: 7.0 Unit: tablet Repeat number: 1 melatonin 10 mg oral tablet 1 tablet = 10 mg, By Mouth, Daily at bedtime, 0 Refills, Maintenance, 09/19/24 8:14:00 AM EDT, Partial fill upon patient request if the prescription is for a schedule II opioid drug. Start Date: 09/19/24 Status: Ordered Repeat number: 1 Metoprolol Tartrate 25 mg oral tablet 1 tablet = 25 mg, By Mouth, 2 times a day, 0 Refills, Maintenance, 10/16/22 11:15:00 AM EDT, Partialfill upon patient request if the prescription is for a schedule II opioid drug. Start Date: 10/16/22 Status: Ordered Repeat number: 1 naltrexone 50 mg oral tablet 1 tablet = 50 mg, By Mouth, Daily, 0 Refills, Maintenance, 09/19/24 8:32:00 AM EDT, Partial fill upon patient request if the prescription is for a schedule II opioid drug. Start Date: 09/19/24 Status: Ordered Repeat number: 1 omeprazole 20 mg oral enteric coated capsule 1 capsule, By Mouth, Daily, # 30 capsule, 0 Refills, Maintenance, 11/27/24 8:44:00 PM EDT, [facility] [id number], 175, cm, 10/25/24 13:26:00 EDT, Height, 75, kg, 09/22/24 13:20:00 EDT, Dry Weight Start Date: 11/27/24 Status: Ordered Quantity: 30.0 Unit: capsule Repeat number: 1 omeprazole 40 mg oral enteric coated capsule 1 capsule, By Mouth, Daily, # 30 capsule, 0 Refills, Maintenance, 11/27/24 8:44:00 PM EDT, [facility] [id number], 175, cm, 10/25/24 13:26:00 EDT, Height, 75, kg, 09/22/24 13:20:00 EDT, Dry Weight Start Date: 11/27/24 Status: Ordered Quantity: 30.0 Unit: capsule Repeat number: 1 ondansetron 4 mg oral tablet, disintegrating 1 tablet = 4 mg, By Mouth, Every 8 hours, PRN as needed for nausea/vomiting, # 30 tablet, 0 Refills, Maintenance, 09/11/23 8:40:00 PM EDT, DIS Tablet, [facility]/pharmacy #[id number], Partial fill upon patient request if the prescription is for a schedule II opioid drug., 175, cm, 09/11/23 12:13:00 EDT, Height, 75, kg, 09/11/23 12:13:00 EDT, Dry Weight Start Date: 09/11/23 Status: Ordered Quantity: 30.0 Unit: tablet Repeat number: 1 pancrelipase 10,000 units-32,000 units-42,000 units oral delayed release capsule 2 capsule, By Mouth, 3 times a day, with each meal and snack, # 180 capsule, 2 Refills, Maintenance, 10/25/24 2:03:00 PM EDT, CR Capsule, [facility]/pharmacy #[id number], Partial fill upon patient request if the prescription is for a schedule II opioid drug., 2 capsule By Mouth 3 times a day,x30 days,Instr:with each meal and snack, 175, cm, 10/25/24 13:26:00 EDT, Height, 75, kg, 09/22/24 13:20:00 EDT, Dry Weight Start Date: 10/25/24 Stop Date: 01/23/25 Status: Ordered Quantity: 180.0 Unit: capsule Repeat number: 3 Indications: Other chronic pancreatitis; [id number] with Electrolytes (Eqv-GoLYTELY) oral powder for reconstitution See Instructions, ok to substitute for any gallon prep, # 1 each, 0 Refills, Maintenance, 09/12/24 3:57:00 PM EDT, [id number], Partial fill upon patient request if the prescription is for a schedule II opioid drug., ok to substitute for any gallon prep, 175.26, cm, 03/30/24 9:52:00 EDT, Height, 72.8, kg, 09/28/23 13:20:00 EDT, Dry Weight Start Date: 09/12/24 Status: Ordered Quantity: 1.0 Unit: each Repeat number: 1 psyllium 2.4 g/3.7 g oral powder for reconstitution = 2.4 Gm, By Mouth, 2 times a day, PRN as needed for constipation, dissolve in 8 oz of fluid, # 30 pack/packet, 1 Refills, Maintenance, 03/20/24 12:50:00 PM EDT, REC Powder, [facility]/pharmacy #[id number], Partial fill upon patient request if the prescription is for a schedule II opioid drug., 175.26, cm, 03/20/24 8:52:00 EDT, Height, 72.8, kg, 09/28/23 13:20:00 EDT, Dry Weight Start Date: 03/20/24 Status: Ordered Quantity: 30.0 Unit: pack/packet Repeat number: 2 psyllium 3.4 g/5.4 g oral powder for reconstitution See Instructions, PRN Diarrhea, 1.7 Gm By Mouth daily. May increase to twice daily as needed., # 300 Gm, 3 Refills, Maintenance, 12/28/23 11:08:00 AM EDT, REC Powder, [facility]/pharmacy #[id number], Partial fill upon patient request if the prescription is for a schedule II opioid drug., 175.26, cm, 12/28/23 10:09:00 EDT, Height, 72.8, kg, 09/28/23 13:20:00 EDT, Dry Weight Start Date: 12/28/23 Status: Ordered Quantity: 300.0 Unit: g Repeat number: 4 Indications: Other chronic pancreatitis; Diarrhea, unspecified; psyllium 3.4 gm/5.8 gm oral powder for reconstitution 5 mL, By Mouth, Daily, PRN For stool bulking, # 300 Gm, 0 Refills, Maintenance, 08/31/23 7:48:00 AM EDT, REC Powder, [facility] 3, Partial fill upon patient request if the prescription is for a schedule II opioid drug., 175, cm, 08/30/23 20:07:00 EDT, Height, 75, kg, 08/25/23 10:01:00 EDT, Dry Weight Start Date: 08/31/23 Status: Ordered Quantity: 300.0 Unit: g Repeat number: 1 QUEtiapine 100 mg oral tablet 100 mg, 1, tablet, By Mouth, Daily at bedtime, # 30 tablet, Refills 0, Tot. Refills 0, Maintenance,02/26/23 7:33:00 AM EDT, Route to Pharmacy Electronically, [facility]/pharmacy #[id number], Partial fill upon patient request if the prescription is for a schedule II opioid drug., 176, cm, 02/25/23 19:49:00 EDT, Height, 74.6, kg, 02/23/23 17:58:00 EDT, Dry Weight Start Date: 02/26/23 Stop Date: 03/28/23 Status: Ordered Quantity: 30.0 Unit: tablet Repeat number: 1 QUEtiapine 50 mg oral tablet 30 each, 0 Refill(s), TAKE 1 TABLET BY MOUTH EVERY DAY NEEDED, 0 Refills, 08/25/23 6:02:00 PM EDT, Partial fill upon patient request if the prescription is for a schedule II opioid drug. Start Date: 08/25/23 Status: Ordered Repeat number: 1 tolterodine 4 mg oral capsule, extended release 1 capsule = 4 mg, By Mouth, Daily, 0 Refills, Maintenance, 09/19/24 8:19:00 AM EDT, Partial fill upon patient request if the prescription is for a schedule II opioid drug. Start Date: 09/19/24 Status: Ordered Repeat number: 1 traZODone 50 mg oral tablet 50 mg, By Mouth, Daily at bedtime, PRN, # 30 tablet, Refills 0, Tot. Refills 0, Maintenance, Insomnia, 02/26/23 9:29:00 AM EDT, Route to Pharmacy Electronically, [facility]/pharmacy #[id number], Partial fill upon patient request if the prescription is for a schedule II opioid drug., 176, cm, 02/26/23 8:18:00 EDT, Height, 74.6, kg, 02/23/23 17:58:00 EDT, Dry Weight Start Date: 02/26/23 Stop Date: 03/28/23 Status: Ordered Quantity: 30.0 Unit: tablet Repeat number: 1 Trelegy Ellipta 200 mcg-62.5 mcg-25 mcg/inh inhalation powder 1 puffs, Inhalation, Daily, at the same time every day, 0 Refills, Maintenance, 06/26/22 10:24:00 AMEST, Powder, Partial fill upon patient request if the prescription is for a schedule II opioid drug. Start Date: 06/26/22 Status: Ordered Repeat number: 1 Vistaril pamoate 25 mg oral capsule 1 capsule = 25 mg, By Mouth, 3 times a day, PRN for anxiety, Please do not drive or conduct activities that might be danger to yourself or others while taking this medication., # 20 capsule, 0 Refills, Maintenance, 05/15/23 3:52:00 PM EST, Capsule, [facility], Partial fill upon patientrequest if the prescription is for a schedule II opioid drug., 175.26, cm, 05/15/23 11:14:00 EST, Height, 77.3, kg, 05/15/23 3:55:00 EST, Dry Weight Start Date: 05/15/23 Status: Ordered Quantity: 20.0 Unit: capsule Repeat number: 1 Problem List Condition Confirmation Course Effective Dates [...] Active Right lower quadrant pain Confirmed Active Social History Social History Type Response Tobacco Use: 4 or less cigar ettes(less than 1/4 pack)/day in last 30 days. Sex Sex Representation Male (finding) Patient Care team information Care Team Personnel Name: Josie Fortune RN Position: [facility] RN Member Role: Primary Care Nurse Name: Christiano Paul Position: [facility] Outreach Member Role: Lifetime Consulting Physician Name: Jacquelyn Davis RN Position: [facility] SN RN Member Role: Primary Care Nurse Name: Luis Guerrero RN Position: [facility] RN Member Role: Primary Care Nurse Name: Sarina Miranda RN Position: [facility] RN Member Role: Primary Care Nurse Name: Shade Anand RN Position: [facility] ED RN W/OE and Tasks Member Role: Primary Care Nurse Name: Jaime Aguilera RN Position: [facility] RN Member Role: Primary Care Nurse Name: Rhea Espitia RN Position: [facility] RN Member Role: Primary Care Nurse Name: Trina Terrell RN Position: [facility] RN Member Role: Primary Care Nurse Name: Saul Barbour MD Position: [facility] Outreach Member Role: PCP Address: [address] [place] [address]- Telecom: Name: Kimmy Burton RN Position: [facility] RN Supv Member Role: Primary Care Nurse Name: Dorothy Franco RN Position: [facility] RN Member Role: Primary Care Nurse Name: Daphne Valdes RN Position: [facility] RN Member Role: Primary Care Nurse Name: Cady Villar RN Position: [facility] RN Member Role: Primary Care Nurse Name: Paris Barriga RN Position: [facility] Rad RN Member Role: Primary Care Nurse Name: Vincent Lopez RN Position: [facility] RN Member Role: Primary Care Nurse Name: Amaya Ang RN Position: [facility] SN RN Member Role: Primary Care Nurse Name: Rhea Uriostegui RN Position: [facility] RN Supv Member Role: Primary Care Nurse Name: Keysha Charles NP Position: [facility] Associate Professional Member Role: Primary Care Nurse Name: Cesar Cohn RN Position: [facility] RN Member Role: Primary Care Nurse Name: Bill Lal LPN Position: [facility] RN Member Role: Primary Care Nurse Name: Ermelinda Barr RN Position: [facility] RN Member Role: Primary Care Nurse Name: Av Price RN Position: [facility] RN Supv Member Role: Primary Care Nurse Name: Josette Catherine RN Position: [facility] Hospital Bridge Worker Apprentice Member Role: Primary Care Nurse Name: Sultana Morris RN Position: [facility] SN RN Member Role: Primary Care Nurse Name: Kathy Pardo RN Position: [facility] RN Member Role: Primary Care Nurse Name: Yusuf Carrillo RN Position: [facility] RN Member Role: Primary Care Nurse Name: Emily Ayala RN Position: [facility] RN Member Role: Primary Care Nurse Name: Ml Cartagena RN Position: [facility] RN Member Role: Primary Care Nurse Name: Smitha Hess RN Position: [facility] RN Member Role: Primary Care Nurse Name: Rhea Osorio RN Position: [facility] RN Member Role: Primary Care Nurse Name: Akosua Marion RN Position: [facility] SN RN Member Role: Primary Care Nurse Name: Hannah Mosher RN Position: [facility] RN Member Role: Primary Care Nurse Name: Riki Diaz RN Position: [facility] RN Member Role: Primary Care Nurse Name: Marianne Hanks RN Position: [facility] AMB Nurse Member Role: Primary Care Nurse Name: Isha Cheney RN Position: [facility] RN Member Role: Primary Care Nurse Name: Raymundo Head RN Position: [facility] RN Member Role: Primary Care Nurse Name: Navneet Guajardo RN Position: [facility] SN RN Member Role: Primary Care Nurse Name: Sheron Hayes RN Position: [facility] RN Member Role: Primary Care Nurse Name: Tin Harrington RN Position: [facility] RN Member Role: Primary Care Nurse Name: Destiny Delgado RN Position: [facility] RN Member Role: Primary Care Nurse Name: Estela Magallanes RN Position: [facility] ED RN W/OE and Tasks Member Role: Primary Care Nurse Name: Rosemarie Sanabria RN Position: [facility] AMB Nurse Member Role: Primary Care Nurse Name: Destiny Gordon RN Position: [facility] RN Member Role: Primary Care Nurse Name: Feli Carter RN Position: [facility] RN Member Role: Primary Care Nurse Name: Jaime Phillips RN Position: [facility] RN Member Role: Primary Care Nurse Name: Sharlene Joshua RN Position: [facility] OB RN Member Role: Primary Care Nurse Name: Jayce Galindo RN Position: [facility] ED RN W/OE and Tasks Member Role: Primary Care Nurse Name: Marcia Yun RN Position: [facility] RN Member Role: Primary Care Nurse Name: Danika Eugene RN Position: [facility] RN Member Role: Primary Care Nurse Name: Varsha Soria NP Position: Reference Physician Member Role: Primary Care Nurse Address: [address] [place] [address] [place] [address]- [place] Telecom: Name: Kimmy Perea RN Position: [facility] RN Member Role: Primary Care Nurse Name: Deana Salinas RN Position: [facility] RN Member Role: Primary Care Nurse Name: Kimmy Millan RN Position: [facility] SN Parasitology Teacher Member Role: Primary Care Nurse Name: Sandee Ayoub RN Position: [facility] RN Member Role: Primary Care Nurse Name: Buster Trinidad RN Position: [facility] RN Member Role: Primary Care Nurse Name: Jarrod Aguillon RN Position: [facility] RN Member Role: Primary Care Nurse Name: Jaylene Gould RN Position: [facility] AMB Nurse Member Role: Primary Care Nurse Name: Vladimir Durand MD Position: [facility] Outreach Member Role: Lifetime Consulting Physician Address: [address] [facility], [place] [address]- Telecom: Name: Marlen Worrell RN Position: [facility] RN Member Role: Primary Care Nurse Name: Joann Soto RN Position: [facility] RN Member Role: Primary Care Nurse Name: Zelda Beckett RN Position: [facility] RN Member Role: Primary Care Nurse Name: Carmella Delgado RN Position: [facility] RN Member Role: Primary Care Nurse Name: Caterina John RN Position: [facility] RN Member Role: Primary Care Nurse Name: Bri Beckford RN Position: [facility] DEENA Office Staff Member Role: Primary Care Nurse Name: Julia Goins RN Position: [facility] HORACIO Nurse Member Role: Primary Care Nurse Name: Melanie Garay RN Position: [facility] RN Member Role: Primary Care Nurse Name: Rachid Ignacio RN Position: [facility] RN Member Role: Primary Care Nurse Name: Lilia Andersen Position: [facility] RN Member Role: Primary Care Nurse Name: Morena Richard RN Position: [facility] RN Member Role: Primary Care Nurse Name: Sultana Nova RN Position: [facility] SN RN Member Role: Primary Care Nurse Name: Ananth Prince RN Position: [facility] SN RN Member Role: Primary Care Nurse Name: Katina Almonte RN Position: [facility] RN Member Role: Primary Care Nurse Care Team Related Persons Name: DAVID VILLANUEVA Name: RINA VILLANUEVA Insurance Providers Guarantor name: [facility] Plan Information #: 1 Payer: [facility] Payer Identifier: NA Member Number: [id number] Group Number: [id number] Subscriber Identifier: [id number] Relationship to Subscriber: self Coverage Type: Medicare Managed Care (Includes Medicare Advantage Plans) Coverage Verification Date: [employer]: NA Address: NA
--- OUTSIDE RECORDS SUMMARY | 2024-12-13 12:07 | XMS_ITS | Data Portability ---
Author Organization [employer] [facility], [facility] Address [address] [place] [address] Care Team Providers Care Registered Public Health Nurse Name Role Phone [facility] OTHER HIM [facility] OTHER Assessment Encounter Date Assessment Date Assessment LastModified by Organization Details LastModified Time 08/19/2022 08/19/2022 I have reviewed and agree with the assessment and plan as documented by the capacitor pack press operator. I provided real time medical direction for this encounter and was immediately available to provide additional phone based assistance as needed. History as noted by capacitor pack press operator. Pt with history of alcoholic gastritis, [...] assessment and plan as documented by the capacitor pack press operator. I provided real-time medical direction for this encounter and was immediately available to provide additional phone-based assistance as needed. History as noted in EMR and by capacitor pack press operator. I would add / emphasize: Patient [...] BMP, serum or plasma 024 12/14/[address], [phone] 4 08:56:22 Referral None recorded . Procedures [...] Lancets 28 gauge [facility] DR[facility]-D [facility]UG COMBO) ROUTE 3 TIMES EVERY DAY [...] Not Available Not Available Not Available [employer] Haigler Lite kit TAKE 1 DROP BY SUBCUTANEOU [...] Respiratory rate Body temperature Heart rate Systolic And Diastolic Systolic And Diastolic Provider Name and Address Organization Details Last Updated DateTime 3 75 /min 97 % 97 % 98.5 [degF] 16 /min 97 % 97 % 16 /min 98.5 [degF] 75 /min 115/70 mm[Hg] 115/70 mm[Hg] Not Available [employer] 3 12:16:25 Date Recorded Heart rate Oxygen saturation Oxygen saturation in Arterial blood by Pulse oximetry Body height Respiratory rate Body temperature Body weight Systolic And Diastolic Provider Name and Address Organization Details Last Updated DateTime 4 68 /min 97 % 97 % 175.26 cm 16 /min 97.9 [degF] 88854.6 16 g 107/64 mm[Hg] Not Available [email or web address] - 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 Functional Status None recorded. Mental Status None recorded. Family History Nothing Reported. Medical History No medical history recorded. Past Encounters Encounter ID Performer Location Encounter Start Date Encounter Closed Date Diagnosis/Indication Diagnosis SNOMED-CT Code Diagnosis ICD10 Code Diagnosis Note [id number] Damian Urrutia MD [facility] [address] [place] [phone] 08/19/2022 12:02:34 08/21/2022 10:58:22 Right upper quadrant pain 315711305 R10.11 [id number] Augustus Osorio MD Main - [facility] [address] [place] [phone] 12/14/2023 15:11:59 12/14/2023 17:08:41 Edema of lower extremity 517475027 R60.0 Health Concerns Section Related Observation LastModified by Organization Detai ls LastModified Time None Recorded Concern Status LastModified by Organization Details LastModified Time None Recorded Advance Directives Directive None Recorded Payers Insurance Date Sequence Insurance Name Policy Number Policy De La Vega Covered Member ID De La Vega Member ID Guarantor Name 12/14/2023 1 [facility] - DOS PRIOR TO 2022 - DUAL ELIGIBLE (MEDICARE REPLACEMENT/ADV ANTAGE - HMO) Po Bower [id number] Po Bower 12/14/2023 1 [facility] - DOS ON OR AFTER 2022 - DUAL ELIGIBLE - ASSISTED OPTIONS AND ONE CARE (MEDICARE REPLACEMENT/ADV ANTAGE - HMO) Po Bower [id number] Po Bower Notes Date Note Type Note Provider Name and Address Organization Details Recorded Time 08/19/2022 text/html This was a supervised home visit with capacitor pack press operator Keysha Valentin. HPI: 62 y.o. M [...] any hx of liver issues. Mbr has [facility] and Kimmy, visiting nurse was there requesting home visit for eval. Mbr agreed to [facility] eval, but was also asked to call his PCP to make them aware and inquire about radiological testing, [facility] He and [...] ................... ................... ................... ................... ................... ................... ........ Roll Up Operator Note From Keysha Valentin: Sent to [...] to make them aware of pain. Consulted [facility] who advised that pt needs to contact PCP to make them aware and to potentially arrange for imaging. [facility] explained red flags to trigger ER visit. Pt made aware and advised that he will contact PCP today. No further questions or concerns at this time. ................... ................... ................... ................... ................... ................... ................... ........ Disposition: Fulfilled Damian Urrutia MD [address] [facility],[address], [place], [address], [employer] 08/19/2022 15:08:54 12/14/2023 text/html HPI: Call returned [...] and assess vitals as no appointments at [facility] today or tomorrow. Reviewed home care advise, ER precautions and reasons to call back. ................... ................... ................... ................... ................... ................... ................... ........ CRC Nurse Triage Notes (Shadia Loya): Comments: CRC RN DID NOT NEED FURTHER INFO Roll Up Operator POC Test Results from Ronn Tovar [facility] (15:22:34) pH: 7.41 pH units pCO2: 43.1 mmHg pO2: 49.5 mmHg Na: 142 mmol/L K: 4.0 mmol/L iCa: 1.20 mmol/L Cl: 103 mmol/L TCO2: 27.1 mEq/L Hct: 38 % Hb: 13.0 g/dL Glu: 100 mg/dL Lac: 1.7 mmol/L Cr: 2.0 mg/dL BUN: 9 mg/dL A ................... ................... ................... ................... ................... ................... ................... ........ Roll Up Operator Note From Ronn Tovar: Pt reports increased BLE edema over the past week or so. Pt s furosemide rx sts take 40 mg [...] ........ Disposition: Fulfilled Augustus Osorio MD [address] [facility],[address], [place], [address], [place] [employer] SourceDIANNE WILEY 12/14/2023 19:38:56
--- OUTSIDE RECORDS SUMMARY | 2024-12-13 12:07 | XMS_ITS | Encounter Summary ---
Author Organization [email or web address] Address [address] [place] [address] Care Team Providers Care Aircraft Mechanic Armament Name Role Phone Saul Barbour MD Primary Care Prov ider Encounter Details Date Type Department Care Team ([facility] st Contact Info) Description 10/02/2024 Orders Only [facility] [address] [place], [place] [phone] Daryn Crowder MD [address] [place] [address] CKD stage 3 secondary to diabetes (CMS/HCC) [...] Care Team (Late st Contact Info) Description 12/19/2024 9:00 AM EDT Office Visit [facility] [address] [place] [address] Shaka Velazquez, DMD [address] [place] [address] documented as of this encounter Procedures Procedure Name Priority Date/Time Associated Diagnosis Comments BASIC METABOLIC PANEL Routine 10/11/2024 2:11 PM EDT CKD stage 3 secondary to diabetes ([facility]) documented in this encounter Results * (ABNORMAL) Basic Metabolic Panel (10/11/2024 2:11 PM EDT) Sodium 143 135 - 145 mmol/L [facility] Potassium 4.0 3.3 - 5.1 mmol/L [facility] Chloride 104 96 - 108 mmol/L [facility] Carbon Dioxide 28 22 - 29 mmol/L [facility] Anion Gap 15 12 - 20 [facility] Urea Nitrogen (BUN) 12 9 - 16 mg/dL [facility] Creatinine, Serum 2.23(H) 0.5 - 1.4 mg/dL [facility] Estimated Glomerular Filt Rate 30 [facility] Comment:Chronic Kidney Disea se: Estimated GFR < 60 mL/min/1.08e6Jtlhlv Kidney Disease: Estimated GFR < 15 mL/min/1.73m2 Glucose 77 60 - 115 mg/dL [facility] Calcium 9.0 8.4 - 10.2 mg/dL [facility] Blood Venous blood specimen / Unknown 10/11/2024 2:11 PM EDT 10/11/2024 6:08 PM EDT us Daryn Crowder MD LAB BLOOD ORDERABLES Final Result [facility] [address] [place] [phone] documented in this encounter Visit Diagnoses Diagnosis CKD stage 3 secondary to diabetes (CMS/HCC)- Primary documented in this encounter Additional Health Concerns Assessment Noted Time PHQ-9 Depression Total Score: 15 03/2 024 2:48 PM EDT documented as of this encounter Care Teams Aircraft Mechanic Armament Relationship Specialty Start Date End Date Saul Barbour MD [address] [place] [phone] PCP - General Internal Medicine 10/27/19 Harshad Ho 08/13/23 documented as of this encounter
--- OUTSIDE RECORDS SUMMARY | 2024-12-13 12:07 | XMS_ITS | Clinical Summary ---
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, CMS/HCC V28); Ingrown nail of fourth toe of left foot 10/19/2024 11:00 AM EDT Procedure visit Orthopedic Surgery [address] [phone] Alvin Sheriff, DPM Cellulitis of right foot (Primary Dx); 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, CMS/HCC V28); Ingrown nail of second toe of right foot 10/12/2024 2:15 PM EDT Office Visit Orthopedic Surgery [address] [phone] Alvin Sheriff, DPM Ingrown nail of second toe of right foot (Primary Dx); 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, CMS/HCC V28); Dermatophytosis, nail from Last 3 Months Immunizations [...] - - Weight 82.6 kg (182 lb) 11/02/2024 10:36 AM EDT Height 175.3 cm (5' 9.02 ) 10/12/2024 2:43 PM ED T Body Mass Index 26.86 10/12/2024 2:43 PM EDT Plan of Treatment Upcoming Encounters Date Type Department Care Team (Late st Contact Info) Description 2025 10:15 AM EDT Office Visit Orthopedic Surgery - [place] [address] [phone] Alvin Sheriff, DPTalia [address] [address] Health Maintenance Due Date Last Done Comments Diabetes: Annual Foot Exam 1971 Diabetes: Annual Retina Eye Exam 1971 Hepatitis A Vaccines (1 of 2 - Risk 2-dose series) 01/30/1980 Colorectal Cancer Screening: Colonoscopy 05/10/2022 HIV Screening 05/10/2022 Hepatitis C Screening 05/10/2022 Medicare Annual Wellness Visit 05/10/2022 Social Influencers of Health Screening 05/10/2022 Depression Screening 08/18/2024 08/19/2023 Diabetes: Blood Sugar Control Test (HGBA1C) 10/30/2024 05/02/2024, 09/15/2023, 07/29/2022 Influenza Vaccine (#1) 2025 , 03/27/2023, 03/05/2022, Additional history exists Diabetes: Annual Urine Albumin-Creatinine Ratio (uACR) 09/11/2025 09/11/2024 Diabetes: Annual GFR (Glomerular Filtration Rate) 10/11/2025 10/11/2024, 09/29/2024 Hypertension/CHF/CAD Annual BMP Blood Test 10/11/2025 10/11/2024, 09/29/2024 Cholesterol Screening (Lipid Panel) 02/17/2027 02/17/2022 DTaP,Tdap,and Td Vaccines (4 - Td or Tdap) 01/30/2033 01/30/2023, 02/17/2018, 02/03/2016 Hepatitis B Vaccines Completed 06/10/2018, 01/24/2018, 11/18/2016 Zoster Vaccines Completed 05/07/2021, 04/07, 07/13/2018 Pneumococcal Vaccine: 50+ Years Completed 12/26/2022, 03/24/2015 RSV Immunization Adult Patients Completed 07/23/2023 COVID-19 Vaccine Completed 02/08/2024, , 04/26/2022, Additional history exists HIB Vaccines Aged Out [...] patient's age to complete this topic Insurance [facility] MEDICARE Member Subscriber Plan / Payer (Ef fective 2019-Present) Name:Po Bower Relation to Subscriber:Self Name:Po Bower Payer ID:[id number] Group ID:[id number] Type:Not on file Address: [address] [phone] Care Teams Physiotherapy Practice Manager Relationship Specialty Start Date End Date Saul Barbour [address] [place], [place] PCP - General 06/16/23
--- OUTSIDE RECORDS SUMMARY | 2024-12-13 12:07 | XMS_ITS | Encounter Summary ---
Author Organization [facility] Address [address] [place] [address] Care Team Providers Care Civil Engineering Teacher Name Role Phone Margaret Valle Primary Care Provider Unavailabl e Saul Barbour MD Primary Care Prov ider Unavailable Encounter Details Date Type Department Care Team Description 09/20/2017 Release of Information Medical Records [address] [place] [id number] Abstract, Provider Social History Tobacco Use Types Packs/Day Years Used Date Smoking Tobacco: Some Days Smokeless Tobacco: Current Alcohol Use Standard Drinks/Week Comments No 0 (1 standard drink = 0.6 oz pur e alcohol) Sex Assigned at Date Recorded Not on file documented as of this encounter Plan of Treatment Not on file documented as of this encounter Visit Diagnoses Not on filedocumented in this encounter Care Teams Civil Engineering Teacher Relationship Specialty Start Date End Date Margaret Valle PCP - General Internal Medicine 09/14/17 06/15/23 Saul Barbour MD PCP - General Internal Medicine 06/16/23 documented as of this encounter
--- OUTSIDE RECORDS SUMMARY | 2024-12-13 12:08 | XMS_ITS | Clinical Summary ---
Author Organization [facility] Address [address] [facility] [address] [place] [address] Phone Care Team Providers Care Associate Spa Director Name Role Phone Saul Whatley Primary Care [...] tablet 3 4 01/24/20 25 Active Creon [id number] units capsule delayed-releas e particles TAKE 1 [...] Prostate specific antigen above reference range 03/15/2018 Immunizations Immunization Administration Dates Next Due Hepatitis [...] Care Team (Late st Contact Info) Description 01/05/2025 Orders Only [facility] [address] [phone] Ml Tanner ARNP [address] [phone] Stage 3b chronic kidney disease (HCC); Hypertension; Anemia in chronic kidney disease; Vitamin D deficiency, not otherwise specified 02/26/2025 10:30 AM EDT Office Visit [facility] [address] [phone] Ml Tanner ARNP [address] [phone] Health Maintenance Due Date Last Done Comments Colorectal Cancer Screening: Annual FOBT 2010 Colorectal Cancer Screening: Colonoscopy 2010 Colorectal Cancer Screening: Sigmoidoscopy 2010 Diabetes: Ophthalmology Exam 04/21/2022 Diabetes: Pedal Pulse Checked 04/21/2022 Diabetes: Sensory Foot Exam 04/21/2022 Diabetes: Visual Foot Exam 04/21/2022 Diabetes: Hemoglobin A1C 08/02/2024 024, 09/15/2023, 07/29/2022, Additional history exists Influenza Vaccine (#1) 2025 , 05/07/2021, 02/14/2019, Additional history exists Hepatitis B Vaccine Aged Out 06/10/2018, 01/24/2018, 11/18/2016 No longer eligible based on patient's age to complete this topic Pneumococcal Vaccine: 50+ Years Completed 12/26/2022, 03/24/2015 Pneumococcal Vaccine: Peds (0 to 5 Years) and At-Risk Patients (6 to 49 Years) Discontinued 12/26/2022, 03/24/2015 Procedures Procedure Name Priority Date/Time Associated Diagnosis Comments PTH, INTACT Routine 11/27/2024 10:56 AM EDT MAGNESIUM Routine 11/27/2024 10:56 AM EDT PROTEIN / CREATININE RATIO, URINE Routine 11/27/2024 10:56 AM EDT CBC Routine 11/27/2024 10:56 AM EDT RENAL FUNCTION PANEL Routine 11/27/2024 10:56 AM EDT HEMOGLOBIN A1C Routine 07/29/2022 9:17 AM EST Type 2 diabetes mellitus with diabetic chronic kidney disease (HCC) Stage 3 chronic kidney disease, not otherwise specified (HCC) Benign hypertension from Last 3 Months or Most Recently Relevant to Health Maintenance Results * (ABNORMAL) Protein, Total, Random Urine w/Creatinine (Protein/Creat Ratio) (11/27/2024 10:56 AM EDT) Creatinine, Ur 13.3 Not Estab. mg/dL [facility] Protein, Ur <4.0 Not Estab. mg/dL [facility] Comment:Verified by repeat analysis Urine Protein/Creatinin e Ratio Comment(A ) 0 - 200 mg/g creat [facility] Comment: This result is below the assay's limit of quantitation indicating a dilute specimen, potentially due to diurnal variation. Consider recollection at a time likely to provide a more concentrated urine. 11/27/2024 10:5 6 AM EDT 11/27/2024 Ml Tanner [facility] URINE ORDERABLES Final Result [facility] [address] [place] [phone] * (ABNORMAL) CBC (11/27/2024 10:56 AM EDT) WBC 8.6 3.4 - 10.8 x10E3/uL [facility] RBC 5.23 4.14 - 5.80 x10E6/uL [facility] Hemoglobin 14.3 13.0 - 17.7 g/dL [facility] Hematocrit 45.7 37.5 - 51.0 % [facility] MCV 87 79 - 97 fL [facility] MCH 27.3 26.6 - 33.0 pg [facility] MCHC 31.3(L) 31.5 - 35.7 g/dL [facility] RDW 13.9 11.6 - 15.4 % [facility] Platelets 252 150 - 450 x10E3/uL [facility] 11/27/2024 10:5 6 AM EDT 11/27/2024 Ml [facility] LAB BLOOD ORDERABLES Final Result Performing Organization Address [facility]/ZIP Co de Phone Number [facility] [address] [place] [address] * (ABNORMAL) PTH, Intact (11/27/2024 10:56 AM EDT) PTH 91(H) 15 - 65 pg/mL [facility] 11/27/2024 10:5 6 AM EDT 11/27/2024 [facility] LAB BLOOD ORDERABLES Final Result Performing Organization Address [facility] de Phone Number [facility] [address] [place] [address] * Magnesium (11/27/2024 10:56 AM EDT) Magnesium 2.1 1.6 - 2.3 mg/dL [facility] 11/27/2024 10:5 6 AM EDT 11/27/2024 [facility] LAB BLOOD ORDERABLES Final Result Performing Organization Address City/[facility] Co de Phone Number [facility] [address] [place] [address] * (ABNORMAL) Renal Function Panel (11/27/2024 10:56 AM EDT) Glucose 71 70 - 99 mg/dL [facility] BUN 17 8 - 27 mg/dL [facility] Creatinine 1.97(H) 0.76 - 1.27 mg/dL [facility] eGFR CKD-EPI CR 2020 37(L) >59 mL/min/1.7 3 [facility] BUN/Creatinine Ratio 9(L) 10 - 24 [facility] Sodium 142 134 - 144 mmol/L [facility] Potassium 4.0 3.5 - 5.2 mmol/L [facility] Chloride 99 96 - 106 mmol/L [facility] Bicarbonate (CO2) 25 20 - 29 mmol/L [facility] Calcium 8.8 8.6 - 10.2 mg/dL [facility] Phosphorus 3.0 2.8 - 4.1 mg/dL [facility] Albumin 4.6 3.9 - 4.9 g/dL [facility] 11/27/2024 10:5 6 AM EDT 11/27/2024 Ml Ciro [facility] LAB BLOOD ORDERABLES Final Result [facility] [address] [place] [phone] * (ABNORMAL) Hemoglobin A1c (07/29/2022 9:17 AM EST) [facility] Hemoglobin A1C 5.8(H) (4.0-5.6) % [facility] Comment: MONITORING: In known diabetic patients, hemoglobin A1c targets should be discussed with health care provider. DIAGNOSTIC USE: The [place] Diabetes Association (ADA) and the World Health [...] Supplement 1 Testing performed or reported by [facility], a Service of [facility], [address] [place] [address] Pratik Thompson MD, Chemical Process Analyst [facility]# [id number] Blood specimen (specimen) Venous blood / Unknown 07/29/2022 9:17 AM EST 07/29/2022 9:20 AM EST Rachid Ortega MD LAB BLOOD ORDERABLES Final Re sult [facility] from Last 3 Months or Most Recently Relevant to Health Maintenance Insurance [employer] [address] [place] [address] [facility] ([id number]) [address] [phone] [facility] ([id number]) Care Teams Associate Spa Director Relationship Specialty Start Date End Date Saul Whatley [address] [place] [address] PCP - General Internal Medicine 07/31/21
[2024-12-13 16:38] LABS: Albumin Level 4.7 g/dL (3.5-5.0); Alkaline Phosphatase 60 U/L (39-117); Aspartate Amino Transferase 35 U/L (5-37); Cholesterol 160 mg/dL (<200); HDL Cholesterol 36 mg/dL (>40); Total Protein 7.3 g/dL (6.5-8.0); Triglycerides 192 mg/dL (<150)
[2024-12-13 16:52] LABS: Alanine Aminotransferase 29 U/L (0-40)
--- OUTSIDE RECORDS SUMMARY | 2024-12-23 20:00 | XMS_ITS | Clinical Summary ---
Author Organization Unknown Care Team Providers Care Pulp Grinder Feeder Name Role Phone HIRAM PARR MD, BRENT Unavailable U cara OGDEN RN, LUIS Unavailable Unavailable Payers Payer Name Policy Type Policy Number Effective Date Expira tion Date [facility] [place] [id number] MED[facility]ID [facility] [id number] MEDICARE - [facility] - [place] [id number] Problems Condition Name Condition Details Condition Category [...] %) transdermal gel 09-01 00:00: 00 Yes [id number] Per instruc tions 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 Per instructio ns 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 (route: transderma l) Med Classific ation: Endocrine Trelegy Ellipta 200 mcg-62.5 mcg-25 mcg powder for inhalation 02-11 00:00: 00 09-01 00:00 :00 No [id number] Per instruc tions EVERY DAY Per instructio ns EVERY DAY (route: inhalation ) Med Classific ation: Respirato ry Therapy Agents azelastine 137 mcg (0.1 %) nasal spray aerosol 09-01 00:00: 00 Yes [id number] Per instruc tions 1 SPRAY INTRANASAL LY TWICE A DAY Per instructio ns 1 SPRAY INTRANASAL LY TWICE A DAY (route: nasal) Med Classific ation: Respirato ry Therapy Agents aspirin 81 mg tablet,olya yed release 09-01 00:00: 00 Yes [id number] 1 tablet DAILY 1 tablet DAILY (route: oral) Med Classific ation: Hematolog ical Agents Alcohol Prep Pads 09-01 00:00: 00 Yes [id number] Per instruc tions 3 TIMES DAILY Per instructio ns 3 TIMES DAILY (route: topical) Med Classific ation: Antisepti cs and Disinfect ants furosemide 40 mg tablet 02-28 00:00: 00 09-01 23:59 :00 No [id number] 1 tablet 2 TIMES DAILY 1 tablet 2 TIMES DAILY (route: oral) Med Classific ation: Cardiovas cular Therapy Agents lorazepam 1 mg tablet 09-01 00:00: 00 08-29 23:59 :00 No [id number] Per instruc tions THREE TIMES A DAY NEEDED Per instructio ns THREE TIMES A DAY NEEDED (route: oral) Med Classific ation: Central Nervous System Agents acetaminoph en ER 650 mg tablet,exte nded release 09-01 00:00: 00 08-29 23:59 :00 No [id number] 1 tablet EVERY 8 HOURS 1 tablet EVERY 8 HOURS (route: oral) Med Classific ation: Analgesic , Anti-infl ammatory or Antipyret ic quetiapine 50 mg tablet 09-01 00:00: 00 11-17 23:59 :00 No [id number] Per instruc tions EVERY DAY NEEDED Per instructio ns EVERY DAY NEEDED (route: oral) Med Classific ation: Central Nervous System Agents metoprolol tartrate 25 mg tablet 09-01 00:00: 00 Yes [id number] 1 tablet TWICE A DAY 1 tablet TWICE A DAY (route: oral) Med Classific ation: Cardiovas cular Therapy Agents amlodipine 10 mg tablet 09-01 00:00: 00 09-01 23:59 :00 No [id number] 1 tablet DAILY 1 tablet DAILY (route: oral) Med Classific ation: Cardiovas cular Therapy Agents atorvastati n 80 mg tablet 09-01 00:00: 00 Yes [id number] 1 tablet BEDTIME 1 tablet BEDTIME (route: oral) Med Classific ation: Cardiovas cular Therapy Agents bupropion HCl XL 300 mg 24 hr tablet, extended release 09-01 00:00: 00 03-30 23:59 :00 No [id number] 1 tablet DAILY 1 tablet DAILY (route: oral) Med Classific ation: Central Nervous System Agents fluoxetine 40 mg capsule 09-01 00:00: 00 Yes [id number] 2 capsule DAILY 2 capsule DAILY (route: oral) Med Classific ation: Central Nervous System Agents gabapentin 600 mg tablet 09-01 00:00: 00 Yes [id number] 1 tablet 2 TIMES DAILY 1 tablet 2 TIMES DAILY (route: oral) Med Classific ation: Central Nervous System Agents ipratropium 0.5 mg-albutero l 3 mg (2.5 mg base)/3 mL nebulizatio n soln 09-01 00:00: 00 Yes [id number] Per instruc tions NEEDED Per instructio ns NEEDED (route: inhalation ) Med Classific ation: Respirato ry Therapy Agents Jardiance 25 mg tablet 02-28 00:00: 00 06-23 23:59 :00 No [id number] 2 tablet DAILY 2 tablet DAILY (route: oral) Med Classific ation: Endocrine melatonin 10 mg capsule 09-01 00:00: 00 Yes [id number] 1 capsule BEDTIME 1 capsule BEDTIME (route: oral) Med Classific ation: Central Nervous System Agents metoprolol tartrate 25 mg tablet 02-28 00:00: 00 09-01 00:00 :00 No [id number] 1 tablet 2 TIMES DAILY 1 tablet 2 TIMES DAILY (route: oral) Med Classific ation: Cardiovas cular Therapy Agents prednisone 5 mg tablet 02-28 00:00: 00 09-01 00:00 :00 No [id number] 1 tablet DAILY 1 tablet DAILY (route: oral) Med Classific ation: Endocrine quetiapine 100 mg tablet 09-01 00:00: 00 Yes [id number] 1 tablet BEDTIME 1 tablet BEDTIME (route: oral) Med Classific ation: Central Nervous System Agents quetiapine 50 mg tablet 09-01 00:00: 00 11-17 23:59 :00 No [id number] 1 tablet DAILY 1 tablet DAILY (route: oral) Med Classific ation: Central Nervous System Agents sulindac 150 mg tablet 02-28 00:00: 00 09-01 00:00 :00 No [id number] 1 tablet 2 TIMES DAILY 1 tablet 2 TIMES DAILY (route: oral) Med Classific ation: Analgesic , Anti-infl ammatory or Antipyret ic tadalafil 10 mg tablet 09-01 00:00: 00 Yes [id number] 1 tablet DAILY 1 tablet DAILY (route: oral) Med Classific ation: Drugs to treat Erectile Dysfuncti on terazosin 5 mg capsule 09-01 00:00: 00 Yes [id number] 1 capsule BEDTIME 1 capsule BEDTIME (route: oral) Med Classific ation: Cardiovas cular Therapy Agents trazodone 50 mg tablet 09-01 00:00: 00 Yes [id number] 1 tablet BEDTIME 1 tablet BEDTIME (route: oral) Med Classific ation: Central Nervous System Agents Trelegy Ellipta 200 mcg-62.5 mcg-25 mcg powder for inhalation 09-01 00:00: 00 Yes [id number] 2 inhalat ion DAILY 2 inhalation DAILY (route: inhalation ) Med Classific ation: Respirato ry Therapy Agents Vitamin D3 25 mcg (1,000 unit) capsule 09-01 00:00: 00 Yes [id number] 1 capsule DAILY 1 capsule DAILY (route: oral) Med Classific ation: Electroly te Balance-N utritiona l Products Wellbutrin XL 150 mg 24 hr tablet, extended release 09-01 00:00: 00 Yes [id number] 1 tablet DAILY 1 tablet DAILY (route: oral) Med Classific ation: Central Nervous System Agents sulindac 150 mg tablet 2022-06 00:00: 00 09-01 00:00 :00 No [id number] 150 mg 2 TIMES DAILY 150 mg 2 TIMES DAILY (route: oral) Med Classific ation: Analgesic , Anti-infl ammatory or Antipyret ic metformin 850 mg tablet 06-28 00:00: 00 09-01 23:59 :00 No [id number] 1 tablet 2 TIMES DAILY 1 tablet 2 TIMES DAILY (route: oral) Med Classific ation: Endocrine amlodipine 5 mg tablet 09-01 00:00: 00 Yes [id number] 1 tablet DAILY 1 tablet DAILY (route: oral) Med Classific ation: Cardiovas cular Therapy Agents Fiber (with aspartame) 3.4 gram/5.8 gram oral powder 09-01 00:00: 00 Yes [id number] 5 g DAILY 5 g DAILY (route: oral) Med Classific ation: Gastroint estinal Therapy Agents furosemide 20 mg tablet 09-01 00:00: 00 Yes [id number] 1 tablet DAILY 1 tablet DAILY (route: oral) Med Classific ation: Cardiovas cular Therapy Agents Abilify 5 mg tablet 11-17 00:00: 00 Yes [id number] 1 tablet DAILY 1 tablet DAILY (route: oral) Med Classific ation: Central Nervous System Agents potassium chloride ER 10 mEq tablet,exte nded release 01-19 00:00: 00 01-20 23:59 :00 No [id number] 1 tablet DAILY 1 tablet DAILY (route: oral) Med Classific ation: Electroly te Balance-N utritiona l Products tizanidine 2 mg tablet 01-19 00:00: 00 Yes [id number] 1 tablet EVERY 8 HOURS 1 tablet EVERY 8 HOURS (route: oral) Med Classific ation: Locomotor System Creon 24,000-76,0 00-120,000 unit capsule,del ayed release 2023-06 0-24 00:00: 00 Yes [id number] 1 capsule 3 TIMES DAILY 1 capsule 3 TIMES DAILY (route: oral) Med Classific ation: Gastroint estinal Therapy Agents dicyclomine 10 mg capsule 2023-06 0-24 00:00: 00 Yes [id number] 1 capsule 4 TIMES DAILY 1 capsule 4 TIMES DAILY (route: oral) Med Classific ation: Gastroint estinal Therapy Agents tolterodine ER 4 mg capsule,ext ended release 24 hr 2023-06 0-24 00:00: 00 Yes [id number] 1 capsule DAILY 1 capsule DAILY (route: [...] Observation Time Observation Value Commen ts Temperature 2024-12-07 08:36:00.000 97.6 [degF] Temperature 2024-11-23 11:11:00.000 97.7 [degF] Temperature 2024-11-16 08:18:00.000 98.6 [degF] Temperature 2024-11-03 08:01:00.000 98.6 [degF] Pulse 2024-12-07 08:36:00.000 80 /min Pulse 2024-11-23 11:11:00.000 73 /min Pulse 2024-11-16 08:18:00.000 76 /min Pulse 2024-11-03 08:01:00.000 81 /min Respirations 2024-12-07 08:36:00.000 18 /min Respirations 2024-11-23 11:11:00.000 18 /min Respirations 2024-11-16 08:18:00.000 16 /min Respirations 2024-11-03 08:01:00.000 16 /min Systolic Blood Pressure 2024-12-07 08:36:00.000 138 mm [Hg] Systolic Blood Pressure 2024-11-23 11:11:00.000 117 mm [Hg] Systolic Blood Pressure 2024-11-16 08:18:00.000 106 mm [Hg] Systolic Blood Pressure 2024-11-03 08:01:00.000 142 mm [Hg] Diastolic Blood Pressure 2024-12-07 08:36:00.000 80 mm [Hg] Diastolic Blood Pressure 2024-11-23 11:11:00.000 72 mm [Hg] Diastolic Blood Pressure 2024-11-16 08:18:00.000 66 mm [Hg] Diastolic Blood Pressure 2024-11-03 08:01:00.000 90 mm [Hg] Plan of Treatment Planned Activity [...] REPORT.] Future Scheduled Test SKILLED NU RSE TO PROVIDE TEACHING ON SIGNS AND SYMPTOMS AND MANAGEMENT OF HYPERTENSION. [code = SKILLED NURSE TO PROVIDE TEACHING ON SIGNS AND SYMPTOMS AND MANAGEMENT OF HYPERTENSION.] Future Scheduled Test SKILLED NU RSE FOR O/A, TEACHING AND SELF-MANAGEMENT RELATED TO HEART FAILURE. INSTRUCT PATIENT/CAREGIVER ON SIGNS AND SYMPTOMS OF EXACERBATION TO REPORT. WEIGHT TO BE OBTAINED. WEIGHT GAIN OF 2 LBS OVERNIGHT OR 5 LBS IN 1 WEEK TO BE REPORTED TO PHYSICIAN. [code = SKILLED NURSE FOR O/A, TEACHING AND SELF-MANAGEMENT RELATED TO HEART FAILURE. INSTRUCT PATIENT/CAREGIVER ON SIGNS AND SYMPTOMS OF EXACERBATION TO REPORT. WEIGHT TO BE OBTAINED. WEIGHT GAIN OF 2 LBS OVERNIGHT OR 5 LBS IN 1 WEEK TO BE REPORTED TO PHYSICIAN. ] Future Scheduled Test SKILLED NU RSE TO REVIEW PATIENT MEDICATIONS. INSTRUCT PATIENT/CAREGIVER ON MONITORING OF EFFECTIVENESS, ADVERSE DRUG REACTIONS, SIDE EFFECTS OF ALL MEDICATIONS (PRESCRIPTION/-OTC), AND HOW AND WHEN TO REPORT PROBLEMS. [code = SKILLED NURSE TO REVIEW PATIENT MEDICATIONS. INSTRUCT PATIENT/CAREGIVER ON MONITORING OF EFFECTIVENESS, ADVERSE DRUG REACTIONS, SIDE EFFECTS OF ALL MEDICATIONS (PRESCRIPTION/-OTC), AND HOW AND WHEN TO REPORT PROBLEMS.] Future Scheduled Test SKILLED NU RSE FOR O/A OF CLIENT'S SLEEP PATTERNS. MAY TEACH INTERVENTIONS R/T ACQUIRING IMPROVED REST [code = SKILLED NURSE FOR O/A OF CLIENT'S SLEEP PATTERNS. MAY TEACH INTERVENTIONS R/T ACQUIRING IMPROVED REST] Future Scheduled Test SKILLED NU RSE TO [...] FOR SAFETY AND WILL NOTIFY CLINICAL SUPERVISOR FRUIT GRADING AND PHYSICIAN/PROVIDER WITH ANY CHANGE IN CONDITION. [code = SKILLED NURSE WILL MAINTAIN SITUATIONAL AWARENESS FOR SAFETY AND WILL NOTIFY CLINICAL SUPERVISOR FRUIT GRADING AND PHYSICIAN/PROVIDER WITH ANY CHANGE IN CONDITION.] Goal 2023-10-28 Patient Goal - NO HOSPITALIZ ATION Goal 2023-12-28 Patient Goal - NO HOSPITALIZ ATION Goal 2024-02-24 Patient Goal - NO HOSPITALIZ ATION Goal 2024-04-27 Patient Goal - STAY OUT OF [facility] Goal 2024-06-23 Patient Goal - STAY OUT OF [facility] Goal 2024-08-25 Patient Goal - STAY OUT OF [facility] Goal 2024-10-24 Patient Goal - STAY OUT OF [facility] Goal Patient Goal - STAY OUT OF [facility] Goal Provider Goal - A PLAN OF CARE WILL BE ESTABLISHED THAT MEETS PATIENT'S GROUP HOME NEEDS AND INCLUDES PATIENT GOAL FOR HOME HEALTH. Goal Provider Goal - CHANGE IN GENERAL [...] PATIENT/CAREGIVER WILL VERBALIZE SIGNS AND SYMPTOMS OF HYPERTENSION AND WILL BE ABLE TO DEMONSTRATE ABILITY TO MANAGE EXACERBATION BY END OF THE EPISODE. Goal Provider Goal - PATIENT/CAREGIVER WILL VERBALIZE/DEMONSTRATE KNOWLEDGE AND MANAGEMENT OF HEART FAILURE DISEASE PROCESS BY END OF EPISODE. Goal Provider Goal - PATIENT/CAREGIVER WILL VERBALIZE UNDERSTANDING OF EDUCATION PROVIDED ON MEDICATIONS BY THE END OF THE CERTIFICATION PERIOD. Goal Provider Goal - PATIENT WILL REPORT AT LEAST 6-8 HOURS A NIGHT, RESTFUL SLEEP PATTERNS ACHIEVED USING THERAPEUTIC INTERVENTIONS BEFORE THE END OF THE CERTIFICATION PERIOD. Goal Provider Goal - PSYCHOSOCIAL NEEDS WILL BE IDENTIFIED AND PLAN IMPLEMENTED TO MINIMIZE RISK THROUGHOUT CERTIFICATION PERIOD. Goal Provider Goal - PATIENT WILL REMAIN SAFE IN THE COMMUNITY AND WILL BE FREE OF DANGER TO SELF AND OTHERS THROUGHOUT THE CERTIFICATION PERIOD. Encounters Start Date/Time End Date/Time Encounter Type Admission Type Attending [facility] Facility Care Department Encounter ID Discharge Date Discharge Status Discharge Condition Discharge Reason Percent Goals Met 2024-10-26 00:00:00 2024-12-24 00:00:00 Outpatient RECERTIFIC LUIS GAYTAN [facility] [id number]
== END 2024-12-13 10:59 | disposition home or self-care (01) ==
LOC: HO.CHCLDS 10:58
PROVIDERS: Visit Provider Internal Medicine
DX: E11.22 Type 2 diabetes mellitus with diabetic chronic kidney disease (principal); N18.31 Chronic kidney disease, stage 3a
CPT/HCPCS: 36415; 80061; 80076

== ENCOUNTER 2025-01-11 09:23 | Outpatient (AMB) | payer OTHER, SELFPAY ==
--- NOTE | 2025-01-11 09:44 | A.OFFVIS_ITS ---
Intake Visit Reasons: 6m/PSA/Testo/PVR Intake Note: Patient is present for ED, HYPOGONADISM Urology Medication:TOLTERODINE,TESTOSTERONE, TADALAFIL Antibiotic Allergy:NONE Blood Thinner:ASPIRIN LABS DONE: 12/13/2024 PSA: 1.0 TESTOSTERONE: 610 Asphalt Tamping Machine Operator Required: No Accompanied by: Self / Same As Patient Allergies No Known Allergies (No Known Allergies*) Allergy (Verified 01/17/25 10:52) HPI Comments Details: Po is a pleasant male. He is seen for the following urologic conditions - lower urinary tract symptoms - erectile dysfunction - hypogonadism - bladder instability Testosterone in adequate range Follow-up from increased dose tolterodine 4 mg Has been effective Prior Cystoscopy with open bladder neck from prior procedure With bladder instability Testosterone refilled Baseline memory issues so not candidate for oxybutynin Six-month follow-up lab work PVR Hypogonadism Initial symptoms Feels that he is decreased energy, Lack of libido Laboratories 03/27 T 128, 04/27 201, 11/26 792 1.9, 04/28 362 1.7, 11/27 430 1.3. 07/01 1346, 12/29 610 1.0 40 Testosterone replacement with gel Improved symptoms with energy on testosterone Erectile dysfunction Longstanding progressive Partial response to daily 10 mg Increased to 20 mg on demand Response to combination Cialis and vacuum pump Lower urine tract symptoms Laser procedure performed number of years ago Feels he is doing well with emptying Adequate stream maintained No current medications PSA 02/25 2.0 Social note patient's son at age 21 2017 years ago from a heroin overdose at [facility] Medical History History of alcohol use Essential hypertension Type 2 diabetes mellitus with unspecified complications Respiratory failure with hypercapnia COPD (chronic obstructive pulmonary disease) VIRAJ on CPAP Nicotine dependence, cigarettes, uncomplicated Allergic rhinitis BPH loc w urin obs/LUTS Elevated PSA Surgical History History of throat surgery History of back surgery History of back surgery Family History Father HTN (hypertension) Lung cancer Social History Household Members: None Household Members Other:: 2 Rabbits Housing: Apartment Alcohol intake: former Patient Tobacco Use Status: Current everyday Tobacco user Tobacco use type: Cigarette Cigarettes Per Day: 6 Years Smoked: (onset 19yo, 1/2ppd x 45yrs, 22pyh) Second Hand Smoke Exposure: No Advance Directives Date on File: 01/15/24 service: No Review of Systems Const Denies chills and Denies fever(s) Card Reports no additional complaints and Denies syncope Resp Denies cough GI Denies abdominal pain and Denies heartburn Reports as per HPI and Denies change in libido Neuro Denies syncope Psych Denies change in libido Endo Denies change in libido Physical Exam Const General: cooperative, healthy appearing, comfortable and no acute distress Orientation/consciousness: patient oriented x3 HEENT Face and sinus: Yes normal facial exam Mouth: moist mucous membranes Neck Neck: Yes normal visual inspection, Yes full ROM and Yes trachea midline Chest Chest palpation & inspection: normal inspection of the chest Resp Effort & Inspection: normal respiratory effort, able to speak in complete sentences and no respiratory distress GI Inspection: Yes normal to inspection Back/Spine/Pelvis Cervical Spine: normal cervical lordosis Thoracic/Lumbar Spine: thoracic and lumbar spine normal to inspection Skin General skin exam: no rashes or lesions noted Neuro General: patient oriented x3, gait normal, tone normal and moves all extremities Extrem General: Yes normal to inspection and Yes capillary refill normal Assessment & Plan Assessment & Plan (1) Overactive bladder: Code(s): N32.81 - Overactive bladder Category: Medical (2) BPH loc w urin obs/LUTS: Code(s): N40.1 - Benign prostatic hyperplasia with lower urinary tract symptoms Category: Medical (3) Hypogonadism in male: Code(s): E29.1 - Testicular hypofunction Category: Medical Plan Continue topical testosterone therapy Orders: Orders Testosterone, Total 5 Months E29.1 - Testicular hypofunction Prostate Specific Antigen 5 Months E29.1 - Testicular hypofunction Hematocrit 5 Months E29.1 - Testicular hypofunction Medications: Changed From testosterone apply 2 pumps over max area - alternate shoulders on alternate days 2 pumps topical DAILY 30 days 75 grams 5RF E29.1 - Testicular hypofunction To testosterone apply 2 pumps over max area - alternate shoulders on alternate days 2 pumps topical DAILY 75 grams 5RF 30 days E29.1 - Testicular hypofunction Refilled tadalafil Daily medication USE [employer] COU[employer]ON NOT INSURANCE 10 mg PO DAILY 90 tabs 1RF sexual activity 90 days N52.9 - Male erectile dysfunction, unspecified Discontinued tolterodine ER Discontinued Reason: Doctor's Order 4 mg PO DAILY 90 days 90 caps 1RF N32.81 - Overactive bladder, R39.15 - Urgency of urination Patient Instructions: This note is constructed using voice recognition software. While every effort has been made to ensure accuracy assembly loader errors may have been included. Imaging studies, laboratory and physical exam results were discussed and reviewed in detail. No major barriers to patient understanding were identified. An opportunity to ask questions regarding the treatment plan was provided. All questions were answered. The patient expressed understanding and agreement with the above treatment plan. The patient is aware they should contact our office by phone for worsening of their current condition or the appearance of new urologic symptoms. Compliance is encouraged with any medications and followup testing that is ordered. It is a privilege to participate in the urologic care of your patient. If you have any questions or concerns regarding treatment for the above conditions, or other urologic issues, please do not hesitate to contact me. The office telephone contact is [phone]. Sincerely, Dr Vincent Smith MD, JOZEF [facility] - Urology Compassionate Specialist Care for the Genitourinary System Coding Level of Care Code Est Pt Level 3 (67745) Complex EM visit Add On G2211 Diagnoses Overactive bladder N32.81 BPH loc w urin obs/LUTS N40.1 Hypogonadism in male E29.1
--- OUTSIDE RECORDS SUMMARY | 2025-01-11 09:47 | XMS_ITS | Clinical Summary ---
Author Organization [address] [facility] Address [address] [place] [address] Phone Care Team Providers Care Apartment Property Manager Name Role Phone Saul Barbour Primary [...] 10:45 AM EDT Procedure visit Orthopedic Surgery [address] [phone] Alvin Sheriff, DPM Cellulitis of left foot (Primary Dx); 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, CMS/HCC V28); Ingrown nail of fourth toe of left foot 10/19/2024 11:00 AM EDT Procedure visit Orthopedic Surgery [address] [phone] Alvin Sheriff, DPM Cellulitis of right foot (Primary Dx); 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, CMS/HCC V28); Ingrown nail of second toe of right foot 10/12/2024 2:15 PM EDT Office Visit Orthopedic Surgery [address] [phone] Alvin Sheriff, DPM Ingrown nail of second [...] AM EDT Office Visit Orthopedic Surgery - [place] [address] [phone] Alvin Sheriff, DPTalia [address] [address] Health Maintenance Due Date Last Done Comments Diabetes: Annual Foot Exam 1971 Diabetes: Annual Retina Eye Exam 1971 Hepatitis A Vaccines (1 of 2 - Risk 2-dose series) 01/30/1980 Colorectal Cancer Screening: Colonoscopy 05/10/2022 HIV Screening 05/10/2022 Hepatitis C Screening 05/10/2022 Medicare Annual Wellness Visit 05/10/2022 Social Influencers of Health Screening 05/10/2022 Depression Screening 06/07/2024 Diabetes: Blood Sugar Control Test (HGBA1C) 10/30/2024 [...] patient's age to complete this topic Insurance [facility] MEDICARE Member Subscriber Plan / Payer (Ef fective 2019-Present) Name:Po Bower Relation to Subscriber:Self Name:Po Bower Payer ID:[id number] Group ID:[id number] Type:Not on file Address: [address] [place] [address] Care Teams Apartment Property Manager Relationship Specialty Start Date End Date Saul Barbour [address] [place], [place] PCP - General 06/16/23
--- OUTSIDE RECORDS SUMMARY | 2025-01-11 09:47 | XMS_ITS | Encounter Summary ---
Author Organization [employer] Address [address] [place] [address] Care Team Providers Care Chain Pegger Name Role Phone Saul Barbour MD Primary Care Prov ider Encounter Details Date Type Department Care Team ([facility] st Contact Info) Description 10/02/2024 Orders Only [facility] [address], [place] [phone] Daryn Crowder MD [address] [place] [address] CKD stage 3 secondary to diabetes (CMS/HCC) [...] Care Team (Late st Contact Info) Description 01/31/2025 9:00 AM EDT Office Visit [facility] [address] [place] [address] Shaka Velazquez DMD [address] [place] [address] 03/15/2025 9:30 AM EDT Telemedicine [facility] [address], [place] [phone] Saul Barbour MD [address], [place] [phone] documented as of this encounter Procedures Procedure Name Priority Date/Time Associated Diagnosis Comments BASIC METABOLIC PANEL Routine 10/11/2024 2:11 PM EDT CKD stage 3 secondary to diabetes ([facility]) documented in this encounter Results * (ABNORMAL) Basic Metabolic Panel (10/11/2024 2:11 PM EDT) Sodium 143 135 - 145 mmol/L [facility] Potassium 4.0 3.3 - 5.1 mmol/L [facility] Chloride 104 96 - 108 mmol/L [facility] Carbon Dioxide 28 22 - 29 mmol/L [facility] Anion Gap 15 12 - 20 [facility] Urea Nitrogen (BUN) 12 9 - 16 mg/dL [facility] Creatinine, Serum 2.23(H) 0.5 - 1.4 mg/dL [facility] Estimated Glomerular Filt Rate 30 [facility] Comment:Chronic Kidney Disea se: Estimated GFR < 60 mL/min/[id number] Kidney Disease: Estimated GFR < 15 mL/min/1.73m2 Glucose 77 60 - 115 mg/dL [facility] Calcium 9.0 8.4 - 10.2 mg/dL [facility] Blood Venous blood specimen / Unknown 10/11/2024 2:11 PM EDT 10/11/2024 6:08 PM EDT us Daryn Crowder MD LAB BLOOD ORDERABLES Final Result [facility] [address] [place] [address] [phone] documented in this encounter Visit Diagnoses Diagnosis CKD stage 3 secondary to diabetes (CMS/[facility])- Primary documented in this encounter Additional Health Concerns Assessment Noted Time PHQ-9 Depression Total Score: 15 08/18/ 024 2:48 PM EDT documented as of this encounter Care Teams Chain Pegger Relationship Specialty Start Date End Date Saul Barbour MD [address] [place] [phone] PCP - General Internal Medicine 10/27/19 Harshad Ho 08/13/23 documented as of this encounter
--- OUTSIDE RECORDS SUMMARY | 2025-01-11 09:47 | XMS_ITS | Clinical Summary ---
Author Organization [facility] Address [address] [place] [address] Phone Care Team Providers Care Database Marketing Analyst Name Role Phone Unavailable Primary Care Provider Unavailabl e Social History Tobacco Use Types Packs/Day Years Used Date Smoking Tobacco: Never Assessed Education Answer Date Recorded Are you interested in more education? Not on zay e 12/14/2023 Are you concerned about learning? Not on file 12/14/2023 No 12/14/2023 No 12/14/2023 Digital Access Answer Date Recorded No 12/14/2023 No 12/14/2023 Reliable internet access at home? Not on file 12/14/2023 Device with a working camera? Not on file Sex and Gender Information Value Date Recorded Sex Assigned at Not on file Legal Sex Male 10:34 PM EDT Gender Identity Not on file Sexual Orientation Not on file Plan of Treatment Not on file Medical Devices Not on file Additional Source Comments The information contained in this document represents components of the legal health record. It is not the complete legal health record.[facility]
--- OUTSIDE RECORDS SUMMARY | 2025-01-11 09:47 | XMS_ITS | Encounter Summary ---
Author Organization [facility] Address [address] [address] Phone Care Team Providers Care Recruiter Manager Name Role Phone Saul Whatley Primary Care Provider [phone] Encounter Details Date Type Department Care Team (Late st Contact Info) Description 01/05/2025 Orders Only [facility] [address] [phone] Ml Tanner ARNP [address] [address] Stage 3b chronic kidney disease (HCC); Hypertension; Anemia in chronic kidney disease; Vitamin D deficiency, not otherwise specified Social History Tobacco Use Types Packs/Day Years Used Date Smoking Tobacco: Every Day Cigarettes Smokeless Tobacco: Never Alcohol Use Standard Drinks/Week Comments Not Currently 0 (1 standard drink = 0.6 oz pur e alcohol) Sex and Gender Information Value Date Recorded Sex Assigned at Not on file Legal Sex Male 1:53 PM EST Gender Identity Not on file Sexual Orientation Not on file documented as of this encounter Plan of Treatment Upcoming Encounters Date Type Department Care Team (Late st Contact Info) Description 02/26/2025 10:30 AM EDT Office Visit [facility] [address] [address] Ml Tanner ARNP [address] [address] documented as of this encounter Procedures Procedure Name Priority Date/Time Associated Diagnosis Comments PROTEIN / CREATININE RATIO, URINE Routine 12/26/2024 12:50 PM EDT URINE ALBUMIN / CREATININE RATIO Routine 12/26/2024 12:50 PM EDT CBC Routine 12/26/2024 12:50 PM EDT PTH, INTACT Routine 12/26/2024 12:50 PM EDT RENAL FUNCTION PANEL Routine 12/26/2024 12:50 PM EDT documented in this encounter Results * PTH, Intact (12/26/2024 12:50 PM EDT) PTH 34 15 - 65 pg/mL [facility] 12/26/2024 12:5 0 PM EDT 12/26/2024 [facility] LAB BLOOD ORDERABLES Final Result [facility] [place] [address] [place] [phone] * Urine Albumin / Creatinine Ratio (12/26/2024 12:50 PM EDT) Albumin, Urine <3.0 Not Estab. ug/mL [facility] Albumin/Creatin ine Ratio <13 0 - 29 mg/g creat [facility] Comment: Normal: 0 - 29 Moderately increased: 30 - 300 Severely increased: >300 12/26/2024 12:5 0 PM EDT 12/26/2024 [facility] LAB URINE ORDERABLES Final Result [facility] [place] [address] [place] [address] * (ABNORMAL) Protein, Total, Random Urine w/Creatinine (Protein/Creat Ratio) (12/26/2024 12:50 PM EDT) Creatinine, Ur 23.0 Not Estab. mg/dL [facility] Protein, Ur <4.0 Not Estab. mg/dL [facility] Comment:Verified by repeat analysis Urine Protein/Creatinin e Ratio Comment(A ) 0 - 200 mg/g creat [facility] Comment: This result is below the assay's limit of quantitation indicating a dilute specimen, potentially due to diurnal variation. Consider recollection at a time likely to provide a more concentrated urine. 12/26/2024 12:5 0 PM EDT 12/26/2024 Ml Tanner [facility] LAB URINE ORDERABLES Final Result [facility] [address] [place] [address] * (ABNORMAL) CBC (12/26/2024 12:50 PM EDT) Pathologist [facility] WBC 8.2 3.4 - 10.8 x10E3/uL [facility] RBC 4.64 4.14 - 5.80 x10E6/uL [facility] Hemoglobin 12.2(L) 13.0 - 17.7 g/dL [facility] Hematocrit 39.0 37.5 - 51.0 % [facility] MCV 84 79 - 97 fL [facility] MCH 26.3(L) 26.6 - 33.0 pg [facility] MCHC 31.3(L) 31.5 - 35.7 g/dL [facility] RDW 13.6 11.6 - 15.4 % [facility] Platelets 214 150 - 450 x10E3/uL [facility] 12/26/2024 12:5 0 PM EDT 12/26/2024 Ml Ciro [facility] LAB BLOOD ORDERABLES Final Result [facility] [address] [place] [address] * (ABNORMAL) Renal Function Panel (12/26/2024 12:50 PM EDT) Glucose 85 70 - 99 mg/dL [facility] BUN 11 8 - 27 mg/dL [facility] Creatinine 1.88(H) 0.76 - 1.27 mg/dL [facility] eGFR CKD-EPI CR 2020 40(L) >59 mL/min/1.7 3 [facility] BUN/Creatinine Ratio 6(L) 10 - 24 [facility] Sodium 139 134 - 144 mmol/L [facility] Potassium 4.4 3.5 - 5.2 mmol/L [facility] Chloride 103 96 - 106 mmol/L [facility] Bicarbonate (CO2) 19(L) 20 - 29 mmol/L [facility] Calcium 9.2 8.6 - 10.2 mg/dL [facility] Albumin 4.0 3.9 - 4.9 g/dL [facility] Phosphorus 4.0 2.8 - 4.1 mg/dL [facility] 12/26/2024 12:5 0 PM EDT 12/26/2024 Ml PRETTY LAB BLOOD ORDERABLES Final Result [facility] [address] [place] [phone] documented in this encounter Visit Diagnoses Diagnosis Stage 3b chronic kidney disease (HCC) Hypertension Anemia in chronic kidney disease Vitamin D deficiency, not otherwise specified documented in this encounter Care Teams Recruiter Manager Relationship Specialty Start Date End Date Saul Whatley [address] [place] [address] PCP - General Internal Medicine 07/31/21 documented as of this encounter
== END 2025-01-11 10:31 | disposition home or self-care (01) ==
LOC: HO.HUSH 09:24
PROVIDERS: PCP Urology; Visit Provider Urology
DX: N32.81 Overactive bladder (principal); N40.1 Benign prostatic hyperplasia with lower urinary tract symptoms; E29.1 Testicular hypofunction
CPT/HCPCS: 99213; G2211

== ENCOUNTER → 2025-01-11 09:23 | Outpatient (BNVA) | payer OTHER, SELFPAY | PROVIDERS: PCP Urology; Visit Provider Urology | DX: N32.81 Overactive bladder (principal); E29.1 Testicular hypofunction; N52.9 Male erectile dysfunction, unspecified | CPT/HCPCS: 99212 ==

== ENCOUNTER 2025-01-17 10:04 | Outpatient (AMB) | payer OTHER, SELFPAY ==
[2025-01-17 10:19] VITALS: BP 98/50; PULSE 67; O2SAT 94; BMI 28.0
--- NOTE | 2025-01-17 10:19 | A.OFFVIS_ITS ---
Vital Signs 01/17/25 10:19 Height 5 ft 9 in Weight 189 lb 9.561 oz BMI 28.0 BP 98/50 L Blood Pressure Location Lt brachial Position Sitting Pulse 67 Pulse Source Pulse Oximeter Pulse Oximetry (%) 94 Oxygen Delivery Method Room Air Intake Visit Reasons: copd Intake Note: pt is here for follow up and states he is pretty good, Perishable Freight Inspector Required: No Allergies No Known Allergies (No Known Allergies*) Allergy (Verified 01/17/25 10:52) Medication List - Last Reconciled 01/17/25 by Tish Girard MD acetaminophen ER 650 mg PO Q8H albuterol sulfate 2.5 mg (6 mL) inhalation Q4-6H PRN 30 days albuterol sulfate 90 mcg/actuation 2 puffs PO Q4-6H PRN aripiprazole 5 mg PO DAILY aspirin 81 mg PO DAILY atorvastatin 80 mg PO DAILY azelastine 1 spray intranasal BID bupropion HCl XL 150 mg PO DAILY cholecalciferol (vitamin D3) 25 mcg PO DAILY dicyclomine 10 mg PO TIDAC empagliflozin (Jardiance) 25 mg PO DAILY famotidine 20 mg PO DAILY fluoxetine 20 mg PO DAILY fluoxetine 40 mg PO DAILY furosemide 20 mg PO DAILY gabapentin 600 mg PO BID hydroxyzine HCl 25 mg PO DAILY PRN xmiaig-xjxgexmo-fxxwyir 24,000-76,000 -120,000 unit (Creon) 1 cap PO DAILY PRN knkini-elcujbmm-anuaqzf 24,000-76,000 -120,000 unit (Creon) 2 caps PO TID loperamide 2 mg PO QID PRN metoprolol tartrate 25 mg PO BID multivitamin with folic acid 400 mcg (Daily-Sadi (with folic acid)) 1 tab PO DAILY naltrexone 25 mg PO DAILY ondansetron 4 mg PO Q8H PRN potassium chloride ER 10 mEq PO DAILY quetiapine 100 mg PO BEDTIME tadalafil 10 mg PO DAILY 90 days tadalafil (pulm. hypertension) 20 mg PO ONCE PRN testosterone 2 pumps topical DAILY 30 days trazodone 50 mg PO BEDTIME Trelegy Ellipta 200-62.5-25 mcg (eopbrwptral-nmwvhkgic-ksnvmted) 1 ea PO DAILY NS Do you need a note to return to daycare/school/sports/work: No HPI HPI copd: Details: THIS 64 YEARS OLD GENTLEMAN HAS CHRONIC OBSTRUCTIVE PULMONARY DISEASE WITH CHRONIC RESPIRATORY FAILURE. HE HAS USED BIPAP IN THE PAST BUT STOPPED USING IT ABOUT 6 MONTHS AGO. COMES TODAY FOR HIS, ROUTINE FOLLOW-UP. COMPLAINS OF POOR SLEEP AT NIGHT, KEEPS ON WAKING UP. AND COMPLAINS OF DAYTIME SLEEPINESS. HE DOES HAVE HISTORY OF RESPIRATORY FAILURE WITH HYPERCAPNIA IN THE PAST AND, NEEDS TO BE CHECKED FOR RECURRENCE OF HYPERCAPNIA. HE HAS PUT ON LOT OF WEIGHT WITH POT BELLY. BLAMES IT ON DRINKING LOT OF SODA. I QUESTIONED HIM AND HE DENIES USING ANY ALCOHOL. HE DOES SMOKE A FEW CIGARETTES EVERY DAY [facility] Medical History History of alcohol use Essential hypertension Type 2 diabetes mellitus with unspecified complications Respiratory failure with hypercapnia COPD (chronic obstructive pulmonary disease) VIRAJ on CPAP Nicotine dependence, cigarettes, uncomplicated Allergic rhinitis BPH loc w urin obs/LUTS Elevated PSA Surgical History History of throat surgery History of back surgery History of back surgery Family History Father HTN (hypertension) Lung cancer Social History Household Members: None Household Members Other:: 2 Rabbits Housing: Apartment Alcohol intake: former Patient Tobacco Use Status: Current everyday Tobacco user Tobacco use type: Cigarette Cigarettes Per Day: 6 Years Smoked: (onset 19yo, 1/2ppd x 45yrs, 22pyh) Second Hand Smoke Exposure: No Advance Directives Date on File: 01/15/24 service: No Review of Systems Const All systems reviewed & are unremarkable except as noted in HPI and below Eyes Reports no additional complaints ENT Reports nasal congestion Card Reports no additional complaints Resp Reports as per HPI GI Reports no additional complaints Reports no additional complaints Musc Reports no additional complaints Skin/Breast Reports system reviewed and no additional complaints, except as documented Neuro Reports no additional complaints Psych Reports no additional complaints Physical Exam Vital Signs: Last Vital Signs Pulse 67 01/17/25 10:19 BP 98/50 L 01/17/25 10:19 Pulse Ox 94 01/17/25 10:19 Oxygen Delivery Method Room Air 01/17/25 10:19 BMI result Body Mass Index 28.0 Const General: healthy appearing, comfortable, no acute distress, alert and awake Orientation/consciousness: patient oriented x3 HEENT Head: Yes normal to inspection General nose exam: No nasal polyps present and No nasal discharge present Face and sinus: Yes sinuses nontender Mouth: oropharynx normal Throat: Yes posterior oropharynx normal and Yes other (Poor dental hygiene) Eyes General: appearance normal, both eyes and all related structures Neck Neck: Yes normal visual inspection, Yes no lymphadenopathy, No trachea midline (Trach stoma is healed) and Yes no JVD Thyroid: Thyroid normal Chest Chest palpation & inspection: normal inspection of the chest, normal palpation of entire chest wall and no tenderness Resp Other: Percussion note resonant, breath sounds are distant with prolonged expiratory phase. Lungs are clear and no wheezes or rhonchi are heard today. Cardio Palpation: normal PMI Rate: regular rate Rhythm: regular rhythm Heart sounds: no gallops and no murmurs Peripheral pulses: Peripheral pulses 2+ throughout GI Palpation (GI): Soft to palpation, nontender, No hepatosplenomegaly present and no masses Auscultation: normal bowel sounds Back/Spine/Pelvis Thoracic/Lumbar Spine: thoracic and lumbar spine normal to inspection Skin General skin exam: no rashes or lesions noted Neuro General: patient oriented x3 and no focal motor deficits Cranial nerves: Yes CN's II-XII intact bilaterally Extrem General: Yes normal to inspection, Yes no clubbing, cyanosis or edema and Yes no calf tenderness Psych Appearance: grossly normal and well kempt Speech and movement: Normal speech and movement present Assessment & Plan Assessment & Plan (1) COPD (chronic obstructive pulmonary disease): Comment: Advanced COPD . Doing well and lungs are clear. Respiratory status seems to be stable. Code(s): J44.9 - Chronic obstructive pulmonary disease, unspecified Category: Medical Plan: Continue Trelegy Ellipta 1 inhalation daily Albuterol HFA 2 puffs Q 4-6 hours p.r.n./ alternatively albuterol solution 2.5 mg in the nebulizer Q 6 hours p.r.n. when at home. (2) VIRAJ on CPAP: Comment: He has been on BiPAP for treatment of hypercapnia as well as for his sleep apnea. But since his last visit he stopped using the BiPAP. Because he is somewhat sleepy and very slow during the daytime, it seems that he is developing respiratory failure in addition to VIRAJ. Code(s): G47.33 - Obstructive sleep apnea (adult) (pediatric); Z99.89 - Dependence on other enabling machines and devices Category: Medical Plan: I advised him to start using the BiPAP at night for at least 6 hours every night. We will check for his compliance in 4-6 weeks, and reorder the supplies. (3) Respiratory failure with hypercapnia: Comment: Patient has not use the BiPAP since last visit, now he complains of poor sleep at night and also daytime sleepiness. He may have developed hypercapnic respiratory failure again. Code(s): J96.92 - Respiratory failure, unspecified with hypercapnia Category: Medical Plan: Venous blood gas study ordered. Patient advised to start using the BiPAP every night again (4) Nicotine dependence, cigarettes, uncomplicated: Comment: (onset 19yo, 1/2ppd x 45yrs, 22pyh, + fam hx lung ca) now smoking only 2 cigarettes a day. His last LDCT in May 2024 negative. Code(s): F17.210 - Nicotine dependence, cigarettes, uncomplicated Category: Medical Plan: Counseled to quit completely but it seems to be difficult for him. Advised that he should continue to have LDCT on a yearly basis Orders: Orders Venous Blood Gas Today J44.9 - Chronic obstructive pulmonary disease, unspecified, J96.92 - Respiratory failure, unspecified with hypercapnia Coding Level of Care Code Est Pt Level 4 (70091) Diagnoses COPD (chronic obstructive pulmonary disease) J44.9 VIRAJ on CPAP G47.33; Z99.89 Respiratory failure with hypercapnia J96.92 Nicotine dependence, cigarettes, uncomplicated F17.210
--- OUTSIDE RECORDS SUMMARY | 2025-01-17 10:43 | XMS_ITS | Encounter Summary ---
Author Organization [employer] Address [address] [place] [address] Care Team Providers Care Bisque Brusher Name Role Phone Saul Barbuor MD Primary Care Prov ider Encounter Details Date Type Department Care Team ([facility] st Contact Info) Description 10/02/[address] [facility] [address] [place], [place] [phone] Daryn Crowder MD [address] [place] [address] CKD stage 3 secondary to diabetes (CMS/HCC) [...] 9:00 AM EDT Office Visit [facility] [address] [place] [address] Shaka Velazquez DMD [address] [place] [address] 03/15/2025 9:30 AM EDT Telemedicine [facility] [address] [place], [place] [phone] Saul Barbour MD [address] [place], [place] [phone] documented as of this encounter Procedures Procedure Name Priority Date/Time Associated Diagnosis Comments BASIC METABOLIC PANEL Routine 10/11/2024 2:11 PM EDT CKD stage 3 secondary to diabetes ([facility]) documented in this encounter Results * (ABNORMAL) Basic Metabolic Panel (10/11/2024 2:11 PM EDT) Sodium 143 135 - 145 mmol/L [facility] Potassium 4.0 3.3 - 5.1 mmol/L [facility] Chloride 104 96 - 108 mmol/L [facility] Carbon Dioxide 28 22 - 29 mmol/L [facility] Anion Gap 15 12 - 20 [facility] Urea Nitrogen (BUN) 12 9 - 16 mg/dL [facility] Creatinine, Serum 2.23(H) 0.5 - 1.4 mg/dL [facility] Estimated Glomerular Filt Rate 30 [facility] Comment:Chronic Kidney Disea se: Estimated GFR < 60 mL/min/1.27q9Quffjl Kidney Disease: Estimated GFR < 15 mL/min/1.73m2 Glucose 77 60 - 115 mg/dL [facility] Calcium 9.0 8.4 - 10.2 mg/dL [facility] Blood Venous blood specimen / Unknown 10/11/2024 2:11 PM EDT 10/11/2024 6:08 PM EDT us Daryn Crowder MD LAB BLOOD ORDERABLES Final Result [facility] [address] [place] [phone] documented in this encounter Visit Diagnoses Diagnosis CKD stage 3 secondary to diabetes (CMS/[facility])- Primary documented in this encounter Additional Health Concerns Assessment Noted Time PHQ-9 Depression Total Score: 15 08/18/ 024 2:48 PM EDT documented as of this encounter Care Teams Bisque Brusher Relationship Specialty Start Date End Date Saul Barbour MD [address] [place] [phone] PCP - General Internal Medicine 10/27/19 Harshad Ho 08/13/23 documented as of this encounter
--- OUTSIDE RECORDS SUMMARY | 2025-01-17 10:43 | XMS_ITS | Clinical Summary ---
Author Organization [facility] Address [address] [place] [address] Phone Care Team Providers Care Delivery Crew Worker Name Role Phone Saul Barbour Primary Care [...] 10:45 AM EDT Procedure visit Orthopedic Surgery [address] [phone] Alvin Sheriff DPM Cellulitis of left foot (Primary Dx); 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, CMS/HCC V28); Ingrown nail of fourth toe of left foot 10/19/2024 11:00 AM EDT Procedure visit Orthopedic Surgery [place] [address] [phone] Alvin Sheriff DPTalia Cellulitis of right foot (Primary Dx); 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, CMS/HCC V28); Ingrown nail of second toe of right foot from Last 3 Months Immunizations Name Administration [...] AM EDT Office Visit Orthopedic Surgery - [place] [address] [phone] Alvin Sheriff, DPTalia [address] [address] Health Maintenance Due Date Last Done Comments [...] patient's age to complete this topic Insurance [facility] MEDICARE Member Subscriber Plan / Payer (Ef fective 2019-Present) Name:Po Bower Relation to Subscriber:Self Name:Po Bower Payer ID:[id number] Group ID:[id number] Type:Not on file Address: [place] [address] [address] [address] [phone] Care Teams Delivery Crew Worker Relationship Specialty Start Date End Date Saul Barbour [address] [place], [place] [facility] - General 06/16/23
--- OUTSIDE RECORDS SUMMARY | 2025-01-17 10:43 | XMS_ITS | Clinical Summary ---
Author Organization [facility] Address [address] [facility] [address] [place] [address] Phone Care Team Providers Care Intensive Care Nurse Name Role Phone Saul Whatley Primary Care [...] tablet 3 4 01/24/20 25 Active Creon [id number] units capsule delayed-releas e particles TAKE 1 [...] Encounters Date Type Department Care Team Description 01/05/2025 Orders Only [facility] [address] [phone] Ml Tanner ARNP Stage 3b chronic kidney disease (HCC); Hypertension; [...] Office Visit [facility] [address] [phone] Ml Tanner ARNP [address] [phone] Health Maintenance Due Date Last [...] Date/Time Associated Diagnosis Comments PTH, INTACT Routine 12/26/2024 12:50 PM EDT URINE ALBUMIN / CREATININE RATIO Routine 12/26/2024 12:50 PM EDT PROTEIN / CREATININE RATIO, URINE Routine 12/26/2024 12:50 PM EDT CBC Routine 12/26/2024 12:50 PM EDT RENAL FUNCTION PANEL Routine 12/26/2024 12:50 PM EDT PTH, INTACT Routine 11/27/2024 10:56 AM EDT [...] w/Creatinine (Protein/Creat Ratio) (12/26/2024 12:50 PM EDT) Only the most recent of2 resultswithin the time period is included. Creatinine, Ur 23.0 Not Estab. mg/dL [facility] Protein, Ur <4.0 Not Estab. mg/dL [facility] Comment:Verified by repeat analysis Urine Protein/Creatinin e Ratio Comment(A ) 0 - 200 mg/g creat [facility] Comment: This result is below the assay's limit of quantitation indicating a dilute specimen, potentially due to diurnal variation. Consider recollection at a time likely to provide a more concentrated urine. 12/26/2024 12:5 0 PM EDT 12/26/2024 Ml Tanner [facility] URINE ORDERABLES Final Result [facility] [address] [place] [address] * Urine Albumin / Creatinine Ratio (12/26/2024 12:50 PM EDT) Albumin, Urine <3.0 Not Estab. ug/mL [facility] Albumin/Creatin ine Ratio <13 0 - 29 mg/g creat [facility] Comment: Normal: 0 - 29 Moderately increased: 30 - 300 Severely increased: >300 12/26/2024 12:5 0 PM EDT 12/26/2024 [facility] LAB URINE ORDERABLES Final Result [facility] [address] [place] [address] * (ABNORMAL) CBC (12/26/2024 12:50 PM EDT) Only the most recent of2 resultswithin the time period is included. WBC 8.2 3.4 - 10.8 x10E3/uL [facility] RBC 4.64 4.14 - 5.80 x10E6/uL [facility] Hemoglobin 12.2(L) 13.0 - 17.7 g/dL [facility] Hematocrit 39.0 37.5 - 51.0 % [facility] MCV 84 79 - 97 fL [facility] MCH 26.3(L) 26.6 - 33.0 pg [facility] MCHC 31.3(L) 31.5 - 35.7 g/dL [facility] RDW 13.6 11.6 - 15.4 % [facility] Platelets 214 150 - 450 x10E3/uL [facility] 12/26/2024 12:5 0 PM EDT 12/26/2024 [facility] LAB BLOOD ORDERABLES Final Result [facility] [address] [place] [address] * PTH, Intact (12/26/2024 12:50 PM EDT) Only the most recent of2 resultswithin the time period is included. PTH 34 15 - 65 pg/mL [facility] 12/26/2024 12:5 0 PM EDT 12/26/2024 Ml Tanner [facility] LAB BLOOD ORDERABLES Final Result [facility] [address] [place] [address] * (ABNORMAL) Renal Function Panel (12/26/2024 12:50 PM EDT) Only the most recent of2 resultswithin the time period is included. Glucose 85 70 - 99 mg/dL [facility] BUN 11 8 - 27 mg/dL [facility] Creatinine 1.88(H) 0.76 - 1.27 mg/dL [facility] e[facility] 2020 40(L) >59 mL/min/1.7 3 [facility] BUN/Creatinine Ratio 6(L) 10 - 24 [facility] Sodium 139 134 - 144 mmol/L [facility] Potassium 4.4 3.5 - 5.2 mmol/L [facility] Chloride 103 96 - 106 mmol/L [facility] Bicarbonate (CO2) 19(L) 20 - 29 mmol/L [facility] Calcium 9.2 8.6 - 10.2 mg/dL [facility] Albumin 4.0 3.9 - 4.9 g/dL [facility] Phosphorus 4.0 2.8 - 4.1 mg/dL [facility] 12/26/2024 12:5 0 PM EDT 12/26/2024 Ml Tanner [facility] LAB BLOOD ORDERABLES Final Result [facility] [address] [place] [address] * Magnesium (11/27/2024 10:56 AM EDT) Magnesium 2.1 1.6 - 2.3 mg/dL [facility] 11/27/2024 10:5 6 AM EDT 11/27/2024 Ml Tanner [facility] LAB BLOOD ORDERABLES Final Result Performing Organization Address [facility] Co de Phone Number [facility] [address] [place] [address] * (ABNORMAL) Hemoglobin A1c (07/29/2022 9:17 AM EST) Hemoglobin A1C 5.8(H) (4.0-5.6) % [facility] Comment: MONITORING: In known diabetic patients, hemoglobin A1c targets should be discussed with health care provider. DIAGNOSTIC USE: The [place] [employer] (ADA) and the World Health [...] Supplement 1 Testing performed or reported by [facility], a Service of [facility], [address] [place] [address] Pratik Thompson MD, Scalper Operator [facility]# [id number] Blood specimen (specimen) Venous blood / Unknown 07/29/2022 9:17 AM EST 07/29/2022 9:20 AM EST Rachid Ortega MD LAB BLOOD ORDERABLES Final Re sult [facility] from Last 3 Months or Most Recently Relevant to Health Maintenance Insurance [address] [place] [address] ([id number]) [place] [phone] [address] [place] [address] [facility] ([id number]) Care Teams Intensive Care Nurse Relationship Specialty Start Date End Date Saul Whatley [address] [place] [address] PCP - General Internal Medicine 07/31/21
--- OUTSIDE RECORDS SUMMARY | 2025-01-17 10:43 | XMS_ITS | Clinical Summary ---
Author Organization [facility] Address [address] [place] [phone] Phone Care Team Providers Care Lens Molding Equipment Operator Name Role Phone Unavailable Primary Care Provider [...] It is not the complete legal health record.[facility]
== END 2025-01-17 10:52 | disposition home or self-care (01) ==
LOC: HO.HPS 10:04
PROVIDERS: PCP Internal Medicine; Visit Provider Internal Medicine
DX: J44.9 Chronic obstructive pulmonary disease, unspecified (principal); G47.33 Obstructive sleep apnea (adult) (pediatric); Z99.89 Dependence on other enabling machines and devices; J96.92 Respiratory failure, unspecified with hypercapnia; F17.210 Nicotine dependence, cigarettes, uncomplicated
CPT/HCPCS: 99214

== ENCOUNTER → 2025-01-17 10:04 | Outpatient (BNVA) | payer OTHER, SELFPAY | PROVIDERS: PCP Internal Medicine; Visit Provider Internal Medicine | DX: G47.33 Obstructive sleep apnea (adult) (pediatric) (principal); Z99.89 Dependence on other enabling machines and devices; J96.92 Respiratory failure, unspecified with hypercapnia; J44.9 Chronic obstructive pulmonary disease, unspecified; F17.210 Nicotine dependence, cigarettes, uncomplicated | CPT/HCPCS: 99212 ==

== ENCOUNTER 2025-03-12 11:24 | Outpatient (REF) | payer OTHER, SELFPAY ==
[2025-03-12 12:25] LABS: Venous Blood Gas Refer to POC result
[2025-03-12 12:29] LABS: VBG HCO3 31 mmol/L (22-26); VBG O2 % Saturation 31.0 %
--- OUTSIDE RECORDS SUMMARY | 2025-03-12 14:33 | XMS_ITS | Clinical Summary ---
Author Organization [facility] Address [address] [place] [phone] Phone Care Team Providers Care Florist Manager Name Role Phone Unavailable Primary Care Provider [...] It is not the complete legal health record.[facility]
== END 2025-03-12 11:25 | disposition home or self-care (01) ==
LOC: HO.LAB 11:24
PROVIDERS: PCP Internal Medicine; Visit Provider Internal Medicine
DX: J44.9 Chronic obstructive pulmonary disease, unspecified (principal); J96.92 Respiratory failure, unspecified with hypercapnia; G47.33 Obstructive sleep apnea (adult) (pediatric); F17.210 Nicotine dependence, cigarettes, uncomplicated; Z99.89 Dependence on other enabling machines and devices
CPT/HCPCS: 36415; 82803; 99212

== ENCOUNTER 2025-03-12 11:24 | Outpatient (AMB) | payer OTHER, SELFPAY ==
--- OUTSIDE RECORDS SUMMARY | 2025-03-07 13:00 | XMS_ITS | Encounter Summary ---
Author Organization [employer] Address [address] [facility] [address] [place] [address] Care Team Providers Care Reinforcing Iron And Rebar Workers Name Role Phone Saul Barbour MD Primary Care Prov ider Reason for Visit * Reason Comments [place] Extraction Encounter Details Date Type Department Care Team ([facility] Contact Info) Description 03/07/2025 1:00 PM EDT Office Visit [facility] [address] [place], [place] [phone] Shaka Velazquez, IRENE [address] [place] [address] Full coverage crown needed for tooth at risk for fracture (Primary Dx); Non-restorable tooth Social History Tobacco Use Types Packs/Day Years Used Date Smoking Tobacco: Every Day Cigarettes Passive Smoke Exposure: Never Smokeless Tobacco: Never Alcohol Use Standard Drinks/Week Comments Never 0 (1 standard drink = 0.6 oz pur e alcohol) Depression Answer Date Recorded Patient Health Questionnaire-9 Score 4 12/13/2024 Patient Health Questionnaire-9 Score 4 12/13/2024 Last PHQ-9: Questionnaire Data Not on file 0 12/13/2024 Housing Stability Answer Date Recorded What is your housing situation today? I have lion [place] 12/13/[address] you li ve. Do you have problems with any of the following? None of the above 12/13/2024 Food Insecurity Answer Date Recorded Within the past 12 months, y ou worried that your food would run out before you got money to buy more: Never True 12/13/2024 Within the past 12 months,th e food you bought just didn't last and you didn't have enough money to get more: Never True 02/2025 Transportation Answer Date Recorded In the past 12 months, has l ack of transportation kept you from medical appts, meetings, work or from getting things needed for daily living? No 12/13/2024 Utilities Answer Date Recorded In the past 12 months, has t he electric, gas, oil or water company threatened to shut off services in your home? No 12/13/2024 Depression Answer Date Recorded Patient Health Questionnaire-2 Score 2 12/13/2024 Internet Access Answer Date Recorded Internet Access Q1 Yes 12/13/2024 Internet Access Q2 Not on file 12/13/2024 Sex and Gender Information Value Date Recorded Sex Assigned at Male 04/06/2022 10:30 AM EDT Legal Sex Male 10:30 AM EDT Gender Identity Male 04/06/2022 10:30 AM EDT Sexual Orientation Straight 04/06/2022 10 :30 AM EDT documented as of this encounter Last Filed Vital Signs Vital Sign Reading Time Taken Comments Blood Pressure 110/70 03/07/2025 1:04 PM EDT Pulse - - Temperature - - Respiratory Rate - - Oxygen Saturation - - Inhaled Oxygen Concentration - - Weight - - Height - - Body Mass Index - - documented in this encounter Progress Notes * Shaka Velazquez DMD - 03/07/2025 1:00 PM EDT Patient ID: Po Bower is a 65 y.o. male. Time Out: Timeout Date: 03/07/25, Timeout Time: 1303 (crown delivery and extraction) Location: [facility] Tooth: #28 and #29 Procedure: [place] Verified the above with patient, press assistant, and provider. Confirmed via patient's chart, intraorally and by radiographs. Floor Scraper: not applicable Chief Complaint Patient presents with [place] Extraction Medical Hx: Vitals: Blood pressure 110/70. Medications, Med Hx reviewed with patient and updated in chart. Consent Obtained: The risks, benefits, indications, potential complications, and alternatives were explained to the patient and informed consent was obtained with good understanding. Treatment Provided: Dental procedures in this visit [id number] - EXTRACTION, ERUPTED TOOTH OR EXPOSED ROOT (ELEVATION/FORCEPS REMOVAL) 2 (Completed) Service provider: Shaka Velazquez DMD Billing provider: Shaka Velazquez DMD [id number] - CROWN - PORCELAIN/CERAMIC 28 (Completed) Service provider: Shaka Velazquez DMD Billing provider: Shaka Velazquez DMD [id number] - CROWN - PORCELAIN/CERAMIC 29 (Completed) Service provider: Shaka Velazquez DMD Billing provider: Shaka Velazquez DMD [id number] - CASE PRESENTATION, DETAILED AND EXTENSIVE TREATMENT PLANNING (Completed) Service provider: Shaka Velazquez DMD Billing provider: Shaka Velazquez DMD Topical: 20% Benzocaine Anesthesia: 4% Septocaine (Articaine) w/ 1:200,000 epinephrine Number of Cartridges: 1 Injection Type: Buccal infiltration and Intrapapillary injection Confirmed profound anesthesia. Isolation: cotton rolls and high speed suction Removed Provisional and cleaned excess cement, pumiced tooth as needed. Tried on final scientologist Verified interproximal contacts and margins BW taken to confirm margins and contacts Occlusion adjusted as needed Tooth Treatment: Gluma applied Cemented with: Relyx Unicem Cleaned excess cement, flossed Patient satisfied with comfort and esthetics. POI given. -----EXT Note Timeout: see above Consent Obtained: The risks, benefits, indications, potential complications, and alternatives were explained to the patient and informed consent was obtained with good understanding. Diagnosis: #2 non-restorable due to advanced caries, fracture Topical: 20% Benzocaine Anesthesia: 4% Septocaine (Articaine) w/ 1:200,000 epinephrine Number of Cartridges: 2 Injection Type: Buccal infiltration and Palatal infiltration Confirmed profound anesthesia. Pharyngeal curtain and bite block placed. Removed tooth with elevators and forceps. Apices intact. Surgical Extraction: N/A Socket curetted & irrigated with sterile water. Compressed alveolar bone. Sutures: None Needed All adjacent teeth intact. Hemostasis achieved. Complications: None Written and verbal post-op instructions given. Patient discharged in stable condition; ambulatory, alert, and oriented. NV: Sergio Contact Lens Assistant: Kendra Baron Dentist: Shaka Velazquez DMD documented in this encounter Plan of Treatment Upcoming Encounters Date Type Department Care Team ([facility] st Contact Info) Description 03/14/2025 9:30 AM EDT Telemedicine [facility] [address] [place] [phone] Saul Barbour MD [address] [place] [address] 03/22/2025 1:00 PM EDT Office Visit [facility] [address] [place] [address] Marcus Shaka, DMD [address] [place] [address] 06/08/2025 8:00 AM EST Office Visit [facility] [address] [place] [address] Una Sultana documented as of this encounter Procedures Procedure Name Priority Date/Time Associated Diagnosis Comments 2 EXTRACTION, ERUPTED TOOTH OR EXPOSED ROOT (ELEVATION/FORCEPS REMOVAL) Routine 03/07/2025 1:00 PM EDT Non-restorable tooth 29 CROWN - PORCELAIN/CERAMIC Routine 03/07/2025 1:00 PM EDT Full coverage crown needed for tooth at risk for fracture 28 CROWN - PORCELAIN/CERAMIC Routine 03/07/2025 1:00 PM EDT Full coverage crown needed for tooth at risk for fracture CASE PRESENTATION, DETAILED AND EXTENSIVE TREATMENT PLANNING Routine 03/07/2025 1:00 PM EDT Full coverage crown needed for tooth at risk for fracture Non-restorable tooth documented in this encounter Visit Diagnoses Diagnosis Full coverage crown needed for tooth at risk for fracture- Primary Non-restorable tooth documented in this encounter Additional Health Concerns Assessment Noted Time PHQ-9 Depression Total Score: 4 12/14/19 25 10:26 AM EDT documented as of this encounter Care Teams Reinforcing Iron And Rebar Workers Relationship Specialty Start Date End Date Saul Barbour MD [address] [place] [phone] PCP - General Internal Medicine 10/27/19 Harshad Ho 08/13/23 documented as of this encounter
[2025-03-12 11:37] VITALS: BP 120/78; PULSE 60; O2SAT 98; BMI 24.7
--- NOTE | 2025-03-12 11:37 | A.OFFVIS_ITS ---
Vital Signs 03/12/25 11:37 Height 5 ft 9 in Weight 167 lb 8.821 oz BMI 24.7 BP 120/78 Blood Pressure Location Lt brachial Position Sitting Pulse 60 Pulse Source Pulse Oximeter Pulse Oximetry (%) 98 Oxygen Delivery Method Room Air Intake Visit Reasons: COPD Intake Note: pt is here for follow up and states his breathing has been good, trying to get on the cpap, he is having a lot of trouble with stomach, nausea which stops him from using cpap at night at times. Aircraft Sheet Metal Mechanic Required: No Chef Manager: Chef Manager offered & declined Allergies No Known Allergies (No Known Allergies*) Allergy (Verified 03/12/25 11:49) Medication List - Last Reconciled 03/12/25 by Tish Girard MD acetaminophen ER 650 mg PO Q8H albuterol sulfate 90 mcg/actuation 2 puffs PO Q4-6H PRN albuterol sulfate 2.5 mg (6 mL) inhalation Q4-6H PRN 30 days aripiprazole 5 mg PO DAILY aspirin 81 mg PO DAILY atorvastatin 80 mg PO DAILY azelastine 1 spray intranasal BID bupropion HCl XL 150 mg PO DAILY cholecalciferol (vitamin D3) 25 mcg PO DAILY dicyclomine 10 mg PO TIDAC empagliflozin (Jardiance) 25 mg PO DAILY famotidine 20 mg PO DAILY fluoxetine 20 mg PO DAILY fluoxetine 40 mg PO DAILY furosemide 20 mg PO DAILY gabapentin 600 mg PO BID hydroxyzine HCl 25 mg PO DAILY yppynt-bhochhov-mfwedgn 24,000-76,000 -120,000 unit (Creon) 1 cap PO DAILY PRN auybpg-gpnvomip-urptmos 24,000-76,000 -120,000 unit (Creon) 2 caps PO TID loperamide 2 mg PO QID PRN metoprolol tartrate 25 mg PO BID multivitamin with folic acid 400 mcg (Daily-Sadi (with folic acid)) 1 tab PO DAILY naltrexone 25 mg PO DAILY ondansetron 4 mg PO Q8H PRN potassium chloride ER 10 mEq PO DAILY quetiapine 100 mg PO BEDTIME tadalafil 10 mg PO DAILY 90 days tadalafil (pulm. hypertension) 20 mg PO ONCE PRN testosterone 2 pumps topical DAILY 30 days trazodone 50 mg PO BEDTIME Trelegy Ellipta 200-62.5-25 mcg (zlkjzwdtocm-twksnhgid-scsqgazw) 1 ea PO DAILY NS Do you need a note to return to daycare/school/sports/work: No HPI HPI COPD: Details: THIS 65 YEARS OLD GENTLEMAN IS HERE FOR FOLLOW-UP, FOR COPD, RESPIRATORY FAILURE, SLEEP APNEA. HE WAS STARTED ON BIPAP TREATMENT NOT ONLY FOR SLEEP APNEA BUT ALSO FOR CHRONIC RESPIRATORY FAILURE WITH HYPERCAPNIA. BREATHING MARIE HAS BEEN DOING GOOD AND DENIES ANY ACUTE EXACERBATION. HE HAS NOT BEEN USING BIPAP EXCEPT FOR 3 NIGHTS IN THE WHOLE MONTH. HE CLAIMS THAT HE SLEEPS GOOD, AT LEAST 6-7 HOURS PER NIGHT AND WAKES UP REFRESHED. DURING THE DAYTIME HE IS SHORT OF BREATH ON USUAL WALKING AND EXERTION BUT HAS HAD NO BOUTS OF COUGH OR EXPECTORATION. HE USES TRELEGY ONCE A DAY AND ALBUTEROL JUST NEEDED. HE IS SMOKING ONLY ABOUT 3-4 CIGARETTES A DAY. [facility] Medical History History of alcohol use Essential hypertension Type 2 diabetes mellitus with unspecified complications Respiratory failure with hypercapnia COPD (chronic obstructive pulmonary disease) VIRAJ on CPAP Nicotine dependence, cigarettes, uncomplicated Allergic rhinitis BPH loc w urin obs/LUTS Elevated PSA Surgical History History of throat surgery History of back surgery History of back surgery Family History Father HTN (hypertension) Lung cancer Social History Household Members: None Household Members Other:: 2 Rabbits Housing: Apartment Alcohol intake: former Patient Tobacco Use Status: Current everyday Tobacco user Tobacco use type: Cigarette Cigarettes Per Day: 4 Years Smoked: (onset 19yo, 1/2ppd x 45yrs, 22pyh) Second Hand Smoke Exposure: No Advance Directives Date on File: 01/15/24 service: No Review of Systems Const All systems reviewed & are unremarkable except as noted in HPI and below Eyes Reports no additional complaints ENT Reports nasal congestion Card Reports no additional complaints Resp Reports as per HPI GI Reports no additional complaints Reports no additional complaints Musc Reports no additional complaints Skin/Breast Reports system reviewed and no additional complaints, except as documented Neuro Reports no additional complaints Psych Reports no additional complaints Physical Exam Vital Signs: Last Vital Signs Pulse 60 03/12/25 11:37 BP 120/78 03/12/25 11:37 Pulse Ox 98 03/12/25 11:37 Oxygen Delivery Method Room Air 03/12/25 11:37 BMI result Body Mass Index 24.7 Const General: healthy appearing, comfortable, no acute distress, alert and awake Orientation/consciousness: patient oriented x3 HEENT Head: Yes normal to inspection General nose exam: No nasal polyps present and No nasal discharge present Face and sinus: Yes sinuses nontender Mouth: oropharynx normal Throat: Yes posterior oropharynx normal and Yes other (Poor dental hygiene) Eyes General: appearance normal, both eyes and all related structures Neck Neck: Yes normal visual inspection, Yes no lymphadenopathy, No trachea midline (Trach stoma is healed) and Yes no JVD Thyroid: Thyroid normal Chest Chest palpation & inspection: normal inspection of the chest, normal palpation of entire chest wall and no tenderness Resp Other: Percussion note resonant, breath sounds are distant with prolonged expiratory phase. Lungs are clear and no wheezes or rhonchi are heard today. Cardio Palpation: normal PMI Rate: regular rate Rhythm: regular rhythm Heart sounds: no gallops and no murmurs Peripheral pulses: Peripheral pulses 2+ throughout GI Palpation (GI): Soft to palpation, nontender, No hepatosplenomegaly present and no masses Auscultation: normal bowel sounds Back/Spine/Pelvis Thoracic/Lumbar Spine: thoracic and lumbar spine normal to inspection Skin General skin exam: no rashes or lesions noted Neuro General: patient oriented x3 and no focal motor deficits Cranial nerves: Yes CN's II-XII intact bilaterally Extrem General: Yes normal to inspection, Yes no clubbing, cyanosis or edema and Yes no calf tenderness Psych Appearance: grossly normal and well kempt Speech and movement: Normal speech and movement present Results Reviewed Results Reviewed: COMPLIANCE REPORT REVIEWED BUT HE USED IT ONLY FOR 3 NIGHTS IN THE WHOLE MONTH. VENOUS BLOOD GAS STUDY ORDERED ph 7.44 , pco2 45 po2 29 ( GOOD ) Assessment & Plan Assessment & Plan (1) COPD (chronic obstructive pulmonary disease): Comment: Advanced COPD . Doing well and lungs are clear. Respiratory status seems to be stable. Code(s): J44.9 - Chronic obstructive pulmonary disease, unspecified Category: Medical Plan: CONTINUE USING TRELEGY ELLIPTA 1 INHALATION DAILY ALBUTEROL HFA 2 PUFFS Q 6 HOURS P.R.N. (2) Respiratory failure with hypercapnia: Comment: THIS GENTLEMAN DOES HAVE CHRONIC RESPIRATORY FAILURE WITH HYPERCAPNIA . HE WAS SUPPOSED TO BE USING BIPAP EVERY NIGHT BUT HE HAS NOT BEEN ABLE TO USE IT. CLAIMS THAT HE SLEEPS GOOD EVERY NIGHT WITHOUT THE BIPAP. VENOUS BLOOD GAS STUDY, PH Study : PH 7.44 PCO2 IS 45 . HCO3 31 Code(s): J96.92 - Respiratory failure, unspecified with hypercapnia Category: Medical Plan: VENOUS BLOOD GAS STUDY. ADVISED TO AVOID USING ANY ALCOHOL NARCOTIC . ADVISED TO DO DEEP BREATHING EXERCISES DURING THE DAYTIME (3) VIRAJ on CPAP: Comment: He has been on BiPAP for treatment of hypercapnia as well as for his sleep apnea. But currently he is not using and claims that he does not sleep well with the mask on his face. He claims that he sleeps okay without the mask . Code(s): G47.33 - Obstructive sleep apnea (adult) (pediatric); Z99.89 - Dependence on other enabling machines and devices Category: Medical Plan: Will check venous blood gases (4) Nicotine dependence, cigarettes, uncomplicated: Comment: (onset 19yo, 1/2ppd x 45yrs, 22pyh, + fam hx lung ca) now smoking only 4 cigarettes a day. His last LDCT in May 2024 negative. Code(s): F17.210 - Nicotine dependence, cigarettes, uncomplicated Category: Medical Plan: Again discussed and stressed on him that he should quit smoking completely. Orders: Orders Venous Blood Gas Today J44.9 - Chronic obstructive pulmonary disease, unspecified, J96.92 - Respiratory failure, unspecified with hypercapnia Coding Level of Care Code Est Pt Level 3 (30089) Diagnoses COPD (chronic obstructive pulmonary disease) J44.9 Respiratory failure with hypercapnia J96.92 VIRAJ on CPAP G47.33; Z99.89 Nicotine dependence, cigarettes, uncomplicated F17.210
--- OUTSIDE RECORDS SUMMARY | 2025-03-12 14:02 | XMS_ITS | Encounter Summary ---
Author Organization [employer] Address [address] [place] [address] 7 [place] [address] Care Team Providers Care Community Case Manager Name Role Phone Saul Barbour MD Primary Care Prov ider Encounter Details Date Type Department Care Team ([facility] Contact Info) Description 10/05/2022 Orders Only [facility] [address] [place], [place] [phone] Saul Barbour MD [address] [place], [place] [phone] Back problem (Primary Dx) Social History Tobacco [...] Upcoming Encounters Date Type Department Care Team ([facility] Contact Info) Description 03/14/2025 9:30 AM EDT Telemedicine [facility] [address] [place], [place] [phone] Saul Barbour MD [address] [place], [place] [phone] 03/22/2025 1:00 PM EDT Office Visit [facility] [address] [place] [address] Shaka Velazquez, DMD [address] [place] [address] 06/08/2025 8:00 AM EST Office Visit [facility] [address] [place] [address] Una Sultana documented as of this encounter [...] AM EDT) Ova and Parasite Trichrome SEE [facility] Comment: OVA AND PARASITES, CONC AND PERM SMEAR Micro Number: [id number] Test Status: Final Specimen Source: Stool Specimen Quality: Adequate CONCENTRATION 1: No ova or parasites seen TRICHROME 1: No ova or parasites seen Routine Ova and Parasite exam may not detect some parasites that occasionally cause diarrheal illness. Cryptosporidium Antigen and/or Cyclospora and Isospora Exam may be ordered to detect these parasites. One negative sample does not necessarily rule out the presence of a parasitic infection. For additional information, please refer to https://education.Connecture/faq/SXG503 (This link is being provided for informational/ educational purposes only.)THIS TEST WAS PERFORMED AT:[facility] [place] [address] [place] [address]VHSH JUDSON,MD 04/07/2023 10:0 0 AM EDT 04/07/2023 5:28 PM EDT Daryn Crowder MD LAB MICROBIOLOGY - GENERAL ORDERABLES Final Result Performing Organization Address [facility] Co de Phone Number [facility] [address] [place] [address] [phone] * Giardia Antigen, EIA, Stool (04/07/2023 10:00 AM EDT) Giardia Ag Stool EIA SEE NOTE [facility] Comment:GIARDIA AG, EIA, STO OL Micro Number: [id number] Test Status: Final Specimen Source: Stool Specimen Quality: Adequate Giardia Result 1: Not Detected Reference Range: Not Detected NOTE: Due to intermittent shedding, one negative sample does not necessarily rule out the presence of a parasitic infection.THIS TEST WAS PERFORMED AT:[facility] [address] [id number] APPIAH MD 04/07/2023 10:0 0 AM EDT 04/07/2023 5:28 PM EDT us Daryn Crowdre MD LAB BODY FLUIDS AND STOOLS ORDERABLES Final Result Performing Organization Address [facility] Co de Phone Number [facility] [address] [place] [address] [phone] * Gastrointestinal panel (04/07/2023 10:00 AM EDT) Campylobacter Not Detected Not Detect. [facility] Plesiomonas shigelloides Not Detected Not Detect. [facility] Salmonella Not Detected Not Detect. [facility] Vibrio Not Detected Not Detect. [facility] Vibrio cholerae Not Detected Not Detect. [facility] YERSINIA ENTEROCOLITICA Not Detected Not Detect. [facility] Enteroaggregative E. coli (EAEC) Not Detected Not Detect. [facility] Enteropathogenic E. coli (EPEC) Not Detected Not Detect. [facility] Enterotoxigenic E. coli (ETEC) lt/st Not Detected Not Detect. [facility] Shiga-like toxin-producing E. coli (STEC) stx1/stx2 Not Detected Not Detect. [facility] E coli O157 Not applicable Not Detect. [facility] Comment:E. coli containing t he O157 antigen are a subset ofShiga-like toxin- producing E. coli (STEC). Shigella/Enteroinvasive E. coli (EIEC) Not Detected Not Detect. [facility] Cryptosporidium Not Detected Not Detect. [facility] Cyclospora cayetanensis Not Detected Not Detect. [facility] Entamoeba histolytica Not Detected Not Detect. [facility] Giardia lamblia Not Detected Not Detect. [facility] Adenovirus F 40/41 Not Detected Not Detect. [facility] Astrovirus Not Detected Not Detect. [facility] Norovirus GI/GII Not Detected Not Detect. [facility] Rotavirus A Not Detected Not Detect. [facility] Sapovirus Not Detected Not Detect. [facility] Comment: All results must be [...] assay is performed by Multiplexed PCR, utilizing [employer] Array. 04/07/2023 10:0 0 AM EDT 04/07/2023 5:28 PM EDT us Daryn Crowder MD LAB MICROBIOLOGY - GENERAL ORDERABLES Final Result Performing Organization Address [facility] Co de Phone Number [facility] [address] [place] [phone] * CDiff Gene PCR (04/07/2023 10:00 AM EDT) CDiff Gene PCR NEGATIVE Negative [facility] Comment:If C. difficile stro ngly suspected despite one negativetest, a second test may be sent vs. empiric treatment forC. difficile infection. 04/07/2023 10:0 0 AM EDT 04/07/2023 5:26 PM EDT us Daryn Crowder MD LAB BODY FLUIDS AND STOOLS ORDERABLES Final Result Performing Organization Address [facility] de Phone Number [facility] [address] [place] [phone] * Hepatitis C Antibody Reflex (01/21/2023 2:59 PM EDT) Hepatitis C Antibody Nonreactive Nonreactive [facility] Comment:Antibodies to HCV no t detected; does not exclude early acuteHCV infection. 01/21/2023 2:59 PM EDT 01/21/2023 5:19 PM EDT us Saul Spicer MD LAB BLOOD ORDERABL ES Final Result Performing Organization Address [facility] Co de Phone Number [facility] [address] [place] [phone] documented in this encounter Visit Diagnoses Diagnosis Back problem- Primary Other unspecified back disorder documented in this encounter Additional Health Concerns Assessment Noted Time PHQ-9 Depression Total Score: 26 05/22/ 022 10:52 AM EST documented as of this encounter Care Teams Community Case Manager Relationship Specialty Start Date End Date Saul Barbour MD [address] [place] [phone] PCP - General Internal Medicine 10/27/19 Harshad Ho 08/13/23 documented as of this encounter
--- OUTSIDE RECORDS SUMMARY | 2025-03-12 14:02 | XMS_ITS | Encounter Summary ---
Author Organization [employer] Address [address] [facility] [address] 7t [place] [address] Care Team Providers Care Foundation Drill Operator Name Role Phone Saul Barbour MD Primary Care Prov ider Encounter Details Date Type Department Care Team ([facility] st Contact Info) Description 09/17/2023 Orders Only [facility] MED & PEDS [address] [place], [place] [address] Saul Barbour MD 505 [place] [address] Social History Tobacco Use Types Packs/Day Years [...] Care Team (Late st Contact Info) Description 03/14/2025 9:30 AM EDT Telemedicine [facility] MED & PEDS 505 [place] [address] Saul Barbour MD 505 [place] [address] 03/22/2025 1:00 PM EDT Office Visit [facility]ULT [facility] 505 [place] [address] Shaka Velazquez, IRENE 505 [place] [address] 06/08/2025 8:00 AM EST Office Visit [facility] 505 [place] [address] Una Sultana documented as of this encounter Visit Diagnoses Not on filedocumented in this encounter Additional Health Concerns Assessment Noted Time PHQ-9 Depression Total Score: 15 024 2:48 PM EDT documented as of this encounter Care Teams Foundation Drill Operator Relationship Specialty Start Date End Date Saul Barbour MD 505 [place] [address] PCP - General Internal Medicine 10/27/19 Harshad Ho 08/13/23 documented as of this encounter
--- OUTSIDE RECORDS SUMMARY | 2025-03-12 14:02 | XMS_ITS | Encounter Summary ---
Author Organization [employer] Address [address] 7t [place] [address] Care Team Providers Care Tariff Inspector Name Role Phone Saul Barbour MD Primary Care Prov ider Encounter Details Date Type Department Care Team (Late st Contact Info) Description 09/23/2023 Orders Only [facility] MEDICINE [address] [place] [address] ProviderAndrea MD Social History Tobacco Use Types [...] t he electric, gas, oil or water [employer] threatened to shut off services in your [...] Info) Description 03/14/2025 9:30 AM EDT Telemedicine [facility] MED & PEDS 505 [place] [address] Saul Barbour MD 505 [place] [address] 03/22/2025 1:00 PM EDT Office Visit [facility] 505 [place] [address] Shaka Velazquez DMD 505 [place] [address] 06/08/2025 8:00 AM EST Office Visit [facility] AD[facility] 505 [place] [address] Una Sultana documented as of this encounter [...] documented as of this encounter Care Teams Tariff Inspector Relationship Specialty Start Date End Date Saul Barbour MD 505 [place] [address] PCP - General Internal Medicine 10/27/19 Harshad Ho 08/13/23 documented as of this encounter
--- OUTSIDE RECORDS SUMMARY | 2025-03-12 14:02 | XMS_ITS | Clinical Summary ---
Author Organization [facility] Address 175 [place] [address] Phone Care Team Providers Care Labor Commissioner Name Role Phone Saul Barbour Primary Care [...] Encounters Date Type Department Care Team Description 2025 10:15 AM EDT Office Visit Orthopedic Surgery - [address] [address] Alvin Sheriff, DPM Arthritis of both feet (Primary Dx); Hammertoes of both feet; Ingrowing nail; Capsulitis of right foot from Last 3 Months Immunizations Immunization Administration Dates Next Due Moderna SARS-CoV-2 COVID-19, [...] Care Team (Late st Contact Info) Description 04/03/2025 9:45 AM EDT Office Visit Orthopedic Surgery - [place] [address] [facility] [place] [facility] 250 [place] [phone] Alvin Sheriff, DPM [facility] 250 [place] [address] Health Maintenance Due Date Last Done Comments Colorectal Cancer Screening: Colonoscopy 1961 Diabetes: Annual Foot Exam 1971 Diabetes: Annual Retina Eye Exam 1971 Hepatitis A Vaccines (1 of 2 - Risk 2-dose series) 01/30/1980 HIV Screening 05/10/2022 Hepatitis C Screening 05/10/2022 Medicare Annual Wellness Visit 05/10/2022 Social Influencers of Health Screening 05/10/2022 Depression Screening 06/07/2024 Diabetes: Blood Sugar Control Test (HGBA1C) 06/15/2025 12/13/2024, 05/02/2024, 09/15/2023, Additional history exists Diabetes: Annual GFR (Glomerular Filtration Rate) 10/11/2025 10/11/2024, 09/29/2024 Hypertension/CHF/CAD Annual BMP Blood Test 10/11/2025 10/11/2024, 09/29/2024 Diabetes: Annual Urine Albumin-Creatinine Ratio (uACR) 12/26/2025 12/26/2024, 09/11/2024 Cholesterol Screening (Lipid Panel) 12/13/2029 12/13/2024, 02/17/2022 DTaP,Tdap,and Td Vaccines (4 - Td or Tdap) 01/30/2033 01/30/2023, 02/17/2018, 02/03/2016 Hepatitis B Vaccines Completed 06/10/2018, 01/24/2018, 11/18/2016 Zoster Vaccines Completed 05/07/2021, 04/07, 07/13/2018 Pneumococcal Vaccine: 50+ Years Completed 12/26/2022, 03/24/2015 RSV Immunization Adult Patients Completed 07/23/2023 COVID-19 Vaccine Completed 02/08/2024, , 04/26/2022, Additional history exists Influenza Vaccine Completed 01/23/2025, , 03/27/2023, Additional history exists HIB Vaccines Aged Out [...] Priority Date/Time Associated Diagnosis Comments XR FOOT 3+ VIEWS RIGHT Routine 2025 10:47 AM EDT Pain INJECTION TENDON OR LIGAMENT Routine 2025 10:15 AM EDT Capsulitis of right foot from Last 3 Months Results * XR Foot 3+ Views Right (2025 10:47 AM EDT) Anatomical Region Laterality Modality Lower Extremities, Foot Right Computed Radiography Narrative 2025 12:31 PM EDT Right foot 3 views weightbearing:Right foot reviewed showing no fractures though there is severe arthritic change to the tarsometatarsal joint and the talonavicular joint. 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 Fracture of the posterior talar tuber us Alvin Sheriff DPM IMG XR PROCEDURES Edited Re sult - Final * Injection tendon or ligament (2025 10:15 AM EDT) Narrative Alvin Sheriff DPM - 2025 10:15 AM EDT Alvin Sheriff DPM 2025 12:34 PM Injection tendon or ligament Indications: pain Details: 25 G needle Medications: 0.5 mL lidocaine (PF) 1 %; 40 mg triamcinolone acetonide 40 mg/mL Informed Consent: Laterality: Right Alvin Sheriff DPM IN CLINIC/BEDSIDE ORDERABLE S Final Result from Last 3 Months Insurance [facility] MEDICARE Member Subscriber Plan / Payer (Ef fective 2019-Present) Name:SHADE VILLANUEVA Relation to Subscriber:Self Name:Shade Villanueva Payer ID:[id number] Group ID:[id number] Type:Not on file Address: [place] [address] [address] [id number] Care Teams Labor Commissioner Relationship Specialty Start Date End Date Saul Barbour [address] [place] [address] PCP - General 06/16/23
--- OUTSIDE RECORDS SUMMARY | 2025-03-12 14:02 | XMS_ITS | Encounter Summary ---
Author Organization [employer] Address [address] [place] [address] 7 [place] [address] Care Team Providers Care Supervisor Soakers Name Role Phone Saul Barbour MD Primary Care Prov ider Reason for Visit * Reason Comments Med Change Request Encounter Details Date Type Department Care Team ([facility] st Contact Info) Description 10/03/2022 Refill C [facility] MED [facility] PEDS [address] [place], [place] [phone] Saul Barbour MD 505 [place] [address] Type 2 diabetes mellitus with stage 3b chronic kidney disease, without long-term current use of insulin ([facility] [facility]) Social History Tobacco Use Types [...] Info) Description 03/14/2025 9:30 AM EDT Telemedicine [facility] MED & PEDS 505 [place] [address] Saul Barbour MD 505 [place] [address] 03/22/2025 1:00 PM EDT Office Visit [facility] ADULT DENTAL 505 [place] [address] Shaka Velazquez DMD 505 [place] [address] 06/08/2025 8:00 AM EST Office Visit [facility] 505 [place] [address] Una Sultana documented as of this encounter Visit Diagnoses Diagnosis Type 2 diabetes mellitus with stage 3b chronic kidney disease, without long-term current use of insulin (HCC) documented in this encounter Additional Health Concerns Assessment Noted Time PHQ-9 Depression Total Score: 26 022 10:52 AM EST documented as of this encounter Care Teams Supervisor Soakers Relationship Specialty Start Date End Date Saul Barbour MD 505 [place] [address] PCP - General Internal Medicine 10/27/19 Harshad Ho 08/13/23 documented as of this encounter
--- OUTSIDE RECORDS SUMMARY | 2025-03-12 14:02 | XMS_ITS | Encounter Summary ---
Author Organization [employer] Address [address] [facility] [facility] [address] 7t [place] [address] Care Team Providers Care University Professor Name Role Phone Saul Barbour MD Primary Care Prov ider Encounter Details Date Type Department Care Team ([facility] st Contact Info) Description 10/02/2024 Orders Only [facility] CHC MED & PEDS [address] [place], [place] [phone] Daryn Crowder MD 505 [place] [address] CKD stage 3 secondary to diabetes (CMS/HCC) [...] Info) Description 03/14/2025 9:30 AM EDT Telemedicine [facility] MED & PEDS 505 [place] [address] Saul Barbour MD 505 [place] [address] 03/22/2025 1:00 PM EDT Office Visit [facility] ADULT DENTAL 505 [place] [address] Shaka Velazquez DMD 505 [place] [address] 06/08/2025 8:00 AM EST Office Visit [facility] ADULT DENTAL 505 [place] [address] Una Sultana documented as of this encounter Procedures Procedure Name Priority Date/Time Associated Diagnosis Comments BASIC METABOLIC PANEL Routine 10/11/2024 2:11 PM EDT CKD stage 3 secondary to diabetes ([facility]) documented in this encounter Results * (ABNORMAL) Basic Metabolic Panel (10/11/2024 2:11 PM EDT) Sodium 143 135 - 145 mmol/L [facility] Potassium 4.0 3.3 - 5.1 mmol/L [facility] Chloride 104 96 - 108 mmol/L [facility] Carbon Dioxide 28 22 - 29 mmol/L [facility] Anion Gap 15 12 - 20 [facility] Urea Nitrogen (BUN) 12 9 - 16 mg/dL [facility] Creatinine, Serum 2.23(H) 0.5 - 1.4 mg/dL [facility] Estimated Glomerular Filt Rate 30 [facility] Comment:Chronic Kidney Disea se: Estimated GFR < 60 mL/min/[id number] Kidney Disease: Estimated GFR < 15 mL/min/1.73m2 Glucose 77 60 - 115 mg/dL [facility] Calcium 9.0 8.4 - 10.2 mg/dL [facility] Blood Venous blood specimen / Unknown 10/11/2024 2:11 PM EDT 10/11/2024 6:08 PM EDT us Daryn Crowder MD LAB BLOOD ORDERABLES Final Result [facility] [address] [place] [address] [phone] documented in this encounter Visit Diagnoses Diagnosis CKD stage 3 secondary to diabetes (HCC)- Primary documented in this encounter Additional Health Concerns Assessment Noted Time PHQ-9 Depression Total Score: 15 08/18/2 024 2:48 PM EDT documented as of this encounter Care Teams University Professor Relationship Specialty Start Date End Date Saul Barbour MD [address] [place] [address] PCP - General Internal Medicine 10/27/19 Harshad Caring 08/13/23 documented as of this encounter
--- OUTSIDE RECORDS SUMMARY | 2025-03-12 14:02 | XMS_ITS | Encounter Summary ---
Author Organization [employer] Address [address] [facility] [address]t [place] [address] Care Team Providers Care Senior Administrative Support Name Role Phone Saul Barbour MD Primary Care Prov ider Encounter Details Date Type Department Care Team (Late st Contact Info) Description 01/05/2025 Orders Only [facility] CHC MED & PEDS [address] [place], [place] [phone] ProviderAndrea MD Social History Tobacco Use Types [...] Info) Description 03/14/2025 9:30 AM EDT Telemedicine [facility] MED & PEDS 505 [place] [address] Saul Barbour MD 505 [place] [address] 03/22/2025 1:00 PM EDT Office Visit [facility] ADULT DENTAL 505 [place] [address] Shaka Velazquez, IRENE 505 [place] [address] 06/08/2025 8:00 AM EST Office Visit [facility] ADULT DENTAL 505 [place] [address] Una Sultana documented as of this encounter Procedures Procedure Name Priority Date/Time Associated Diagnosis Comments DIABETES EYE EXAM Routine 01/05/2025 4:21 PM EDT documented in this encounter Results * Hm Diabetes Eye Exam (01/05/2025 4:21 PM EDT) us Historical Provider HEALTH MAINTENANCE Final Result documented in this encounter Visit Diagnoses Not on filedocumented in this encounter Additional Health Concerns Assessment Noted Time PHQ-9 Depression Total Score: 4 12/14/19 25 10:26 AM EDT documented as of this encounter Care Teams Senior Administrative Support Relationship Specialty Start Date End Date Saul Barbour MD 505 [place] [address] PCP - General Internal Medicine 10/27/19 aHrshad Ho 08/13/23 documented as of this encounter
--- OUTSIDE RECORDS SUMMARY | 2025-03-12 14:02 | XMS_ITS | Encounter Summary ---
Author Organization [employer] Address [address] [facility] 7t [place] [address] Care Team Providers Care Dx Board Operator Name Role Phone Saul Barbour MD Primary Care Prov ider Reason for Visit * Reason Onset Date Comments Medication Question 07/28/2022 Encounter Details Date Type Department Care Team ([facility] st Contact Info) Description 07/28/2022 Telephone [facility] MEDICINE [address] [place] [address] Saul Barbour MD [address] [place] [address] Medication Question Social History Tobacco Use Types [...] Neal LPN - 08/24/2022 8:51 AM EDT ASSISTANT PROGRAM DIRECTOR HOANG BERNABE MESSAGE BELOW * Telephone Encounter - Thomas Boothe - 07/28/2022 4:46 PM EST Tc from doug with [facility] requesting a call back regarding medication Please contact doug at [phone] documented in this encounter Plan of Treatment Upcoming Encounters Date Type Department Care Team (Late st Contact Info) Description 03/14/2025 9:30 AM EDT Telemedicine [facility] MED & PEDS [address] [place] [address] Saul Barbour MD 505 [place] [address] 03/22/2025 1:00 PM EDT Office Visit [facility] ADULT DENTAL 505 [place] [address] Shaka Velazquez, DMD 505 [place] [address] 06/08/2025 8:00 AM EST Office Visit [facility] ADULT DENTAL [address] [place] [address] Una Sultana documented as of this encounter Visit Diagnoses Not on filedocumented in this encounter Additional Health Concerns Assessment Noted Time PHQ-9 Depression Total Score: 26 022 10:52 AM EST documented as of this encounter Care Teams Dx Board Operator Relationship Specialty Start Date End Date Saul Barbour MD 505 [place] [address] PCP - General Internal Medicine 10/27/19 Harshad Ho 08/13/23 documented as of this encounter
--- OUTSIDE RECORDS SUMMARY | 2025-03-12 14:02 | XMS_ITS | Encounter Summary ---
Author Organization [employer] Address [address] [facility] 7t [place] [address] Care Team Providers Care Culled Fruit Packer Name Role Phone Saul Barbour MD Primary Care Prov ider Reason for Visit * Reason Onset Date Comments Med Refill 07/13/2022 Encounter Details Date Type Department Care Team ([facility] st Contact Info) Description 07/13/2022 Telephone [facility] MEDICINE [address] [place] [address] Saul Barbour MD [address] [place], [place] [phone] Med Refill Social History Tobacco Use Types [...] Info) Description 03/14/2025 9:30 AM EDT Telemedicine [facility] MED & PEDS 505 [place] [address] Saul Barbour MD 505 [place] [address] 03/22/2025 1:00 PM EDT Office Visit [facility] ADULT DENTAL 505 [place] [address] Shaka Velazquez DMD 505 [place] [address] 06/08/2025 8:00 AM EST Office Visit [facility] ADULT DENTAL [address] [place] [address] Una Sultana documented as of this encounter Visit Diagnoses Not on filedocumented in this encounter Additional Health Concerns Assessment Noted Time PHQ-9 Depression Total Score: 26 022 10:52 AM EST documented as of this encounter Care Teams Culled Fruit Packer Relationship Specialty Start Date End Date Saul Barbour MD 505 [place] [address] PCP - General Internal Medicine 10/27/19 Harshad Ho 08/13/23 documented as of this encounter
--- OUTSIDE RECORDS SUMMARY | 2025-03-12 14:02 | XMS_ITS | Encounter Summary ---
Author Organization [employer] Address [address] 7t [place] [address] Care Team Providers Care Logistic Manager Name Role Phone Saul Barbour MD Primary Care Prov ider Encounter Details Date Type Department Care Team ([facility] st Contact Info) Description 12/13/2023 Telephone [facility] MEDICINE [address] [place] [address] Saul Barbour MD [address] [place], [place] [phone] Social History Tobacco Use Types Packs/Day Years [...] Info) Description 03/14/2025 9:30 AM EDT Telemedicine [facility] MED & PEDS 505 [place] [address] Saul Barbour MD 505 [place] [address] 03/22/2025 1:00 PM EDT Office Visit [facility] ADULT DENTAL 505 [place] [address] Shaka Velazquez, IRENE 505 [place] [address] 06/08/2025 8:00 AM EST Office Visit [facility] ADULT DENTAL 505 [place] [address] Una Sultana documented as of this encounter Visit Diagnoses Not on filedocumented in this encounter Additional Health Concerns Assessment Noted Time PHQ-9 Depression Total Score: 15 024 2:48 PM EDT documented as of this encounter Care Teams Logistic Manager Relationship Specialty Start Date End Date Saul Barbour MD 505 [place] [address] PCP - General Internal Medicine 10/27/19 Harshad Ho 08/13/23 documented as of this encounter
--- OUTSIDE RECORDS SUMMARY | 2025-03-12 14:02 | XMS_ITS | Encounter Summary ---
Author Organization [employer] Address [address] [facility] [address] 7t [place] [address] Care Team Providers Care Rail Walker Name Role Phone Saul Barbour MD Primary Care Prov ider Reason for Visit * Reason Comments Med Refill Encounter Details Date Type Department Care Team (Late st Contact Info) Description 12/13/2023 Refill [facility] MEDICINE 230 [place] [address] Daphne Owens MD 505 [place], [place] [phone] Social History Tobacco Use Types Packs/Day Years [...] Info) Description 03/14/2025 9:30 AM EDT Telemedicine [facility] MED & PEDS 505 [place] [address] Saul Barbour MD 505 [place] [address] 03/22/2025 1:00 PM EDT Office Visit [facility] ADULT DENTAL 505 [place] [address] Shaka Velazquez DMD 505 [place] [address] 06/08/2025 8:00 AM EST Office Visit [facility] ADULT DENTAL 505 [place] [address] Una Sultana documented as of this encounter Visit Diagnoses Not on filedocumented in this encounter Additional Health Concerns Assessment Noted Time PHQ-9 Depression Total Score: 15 024 2:48 PM EDT documented as of this encounter Care Teams Rail Walker Relationship Specialty Start Date End Date Saul Barbour MD [address] [place] [address] PCP - General Internal Medicine 10/27/19 Harshad Ho 08/13/23 documented as of this encounter
--- OUTSIDE RECORDS SUMMARY | 2025-03-12 14:02 | XMS_ITS | Encounter Summary ---
Author Organization [employer] Address [address] [facility] 7t [place] [address] Care Team Providers Care Bicycle Repairman Name Role Phone Saul Barbour MD Primary Care Prov ider Reason for Visit * Reason Comments Med Refill Encounter Details Date Type Department Care Team ([facility] st Contact Info) Description 12/07/2024 Refill [facility]C MED & PEDS [address] [place], [place] [phone] Saul Barbour MD 505 [place] [address] Essential (primary) hypertension; Chronic kidney disease, stage 3b (CMS/HCC) Social History Tobacco Use Types Packs/Day Years [...] 03/14/2025 9:30 AM EDT Telemedicine [facility] MED & PEDS [address] [place] [address] Saul Barbour MD 505 [place] [address] 03/22/2025 1:00 PM EDT Office Visit [facility] ADULT DENTAL [address] [place] [address] Shaka Velazquez DMD 505 [place] [address] 06/08/2025 8:00 AM EST Office Visit [facility] ADULT DENTAL [address] [place] [address] Una Sultana documented as of this encounter Visit Diagnoses Diagnosis Essential (primary) hypertension Unspecified essential hypertension Chronic kidney disease, stage 3b (CMS/HCC) (HCC) documented in this encounter Additional Health Concerns Assessment Noted Time PHQ-9 Depression Total Score: 15 024 2:48 PM EDT documented as of this encounter Care Teams Bicycle Repairman Relationship Specialty Start Date End Date Saul Barbour MD [address] [place] [address] PCP - General Internal Medicine 5/22/20 Harshad Ho 08/13/23 documented as of this encounter
--- OUTSIDE RECORDS SUMMARY | 2025-03-12 14:02 | XMS_ITS | Encounter Summary ---
Author Organization [employer] Address [address] [facility] [address] 7t [place] [address] Care Team Providers Care Flat Breakdown Processor Name Role Phone Saul Barbour MD Primary Care Prov ider Encounter Details Date Type Department Care Team (Late st Contact Info) Description 11/06/2024 Telephone [facility] ADULT DENT[facility] 230 [place] [address] Shaka Silveira, DMD [address] [place], [place] [phone] Social History Tobacco Use Types Packs/Day Years [...] encounter Miscellaneous Notes * Telephone Encounter - Janna Gonzalez - 11/06/2024 2:13 PM EDT PT would like to speak to dr silveira and get a rs appt. He missed the last appt due to falling on his face. CS documented in this encounter Plan of Treatment Upcoming Encounters Date Type Department Care Team (Late st Contact Info) Description 03/14/2025 9:30 AM EDT Telemedicine [facility] MED & PEDS 505 [place] [address] Saul Barbour MD 505 [place] [address] 03/22/2025 1:00 PM EDT Office Visit [facility] ADULT DENTAL 505 [place] [address] Shaka Silveira DMD 505 [place] [address] 06/08/2025 8:00 AM EST Office Visit [facility] ADULT D[facility] 505 [place] [address] Una Sultana documented as of this encounter Visit Diagnoses Not on filedocumented in this encounter Additional Health Concerns Assessment Noted Time PHQ-9 Depression Total Score: 15 024 2:48 PM EDT documented as of this encounter Care Teams Flat Breakdown Processor Relationship Specialty Start Date End Date Saul Barbour MD [address] [place] [address] PCP - General Internal Medicine 10/27/19 Harshad Ho 08/13/23 documented as of this encounter
--- OUTSIDE RECORDS SUMMARY | 2025-03-12 14:02 | XMS_ITS | Encounter Summary ---
Author Organization [employer] Address [address] [facility] [address] 7t [place] [address] Care Team Providers Care Window Maker Name Role Phone Saul Barbour MD Primary Care Prov ider Reason for Visit * Reason Onset Date Comments DR EDWARDS PT 12/19/2024 Encounter Details Date Type Department Care Team ([facility] st Contact Info) Description 12/19/2024 Telephone [facility] ADULT DENTAL [address] [place] [address] Shaka Edwards, DMD [address] [place] [address] DR EDWARDS PT Social History Tobacco Use Types Packs/Day Years [...] * Telephone Encounter - Janna Gonzalez - 12/19/2024 11:35 AM EDT PT is calling to see about what time his antibiotics will be sent to the pharmacy. Please contact pt when available. Thank you documented in this encounter Plan of Treatment Upcoming Encounters Date Type Department Care Team (Late st Contact Info) Description 03/14/2025 9:30 AM EDT Telemedicine [facility] MED & PEDS 505 [place] [address] Saul Barbour MD 505 [place] [address] 03/22/2025 1:00 PM EDT Office Visit [facility] ADULT DENTAL [address] [place] [address] Shaka Edwards DMD 505 [place] [address] 06/08/2025 8:00 AM EST Office Visit [facility] ADULT DENTAL [address] [place] [address] Una Sultana documented as of this encounter Visit Diagnoses Not on filedocumented in this encounter Additional Health Concerns Assessment Noted Time PHQ-9 Depression Total Score: 4 12/14/19 25 10:26 AM EDT documented as of this encounter Care Teams Window Maker Relationship Specialty Start Date End Date Saul Barbour MD [address] [place] [address] PCP - General Internal Medicine 10/27/19 Harshad Ho 08/13/23 documented as of this encounter
--- OUTSIDE RECORDS SUMMARY | 2025-03-12 14:03 | XMS_ITS | Encounter Summary ---
Author Organization [employer] Address [address] [place] [address] 7 [place] [address] Care Team Providers Care Accounting Teacher Name Role Phone Saul Barbour MD Primary Care Prov ider Reason for Visit * Reason Comments Med Refill Encounter Details Date Type Department Care Team ([facility] Contact Info) Description 11/04/2022 Refill [facility]C MED & PEDS [address] [place], [place] [phone] Saul Barbour MD 505 [place] [address] Type 2 diabetes mellitus with stage 3b chronic kidney disease, with long-term current use of insulin ([facility] [place] [facility]); Essential hypertension Social History Tobacco Use Types [...] Upcoming Encounters Date Type Department Care Team ([facility] Contact Info) Description 03/14/2025 9:30 AM EDT Telemedicine [facility] CHC MED & PEDS [address] [place], [place] [phone] Saul Barbour MD 505 [place] [address] 03/22/2025 1:00 PM EDT Office Visit [facility] ADULT DENTAL [address] [place] [address] Shaka Velazquez DMD 505 [place] [address] 06/08/2025 8:00 AM EST Office Visit [facility] ADULT DENTAL [address] [place] [address] Una Sultana documented as of this encounter Visit Diagnoses Diagnosis Type 2 diabetes mellitus with stage 3b chronic kidney disease, with long-term current use of insulin (HCC) Essential hypertension Unspecified essential hypertension documented in this encounter Additional Health Concerns Assessment Noted Time PHQ-9 Depression Total Score: 26 022 10:52 AM EST documented as of this encounter Care Teams Accounting Teacher Relationship Specialty Start Date End Date Saul Barbour MD [address] [place] [address] PCP - General Internal Medicine 10/27/19 Harshad Ho 08/13/23 documented as of this encounter
--- OUTSIDE RECORDS SUMMARY | 2025-03-12 14:03 | XMS_ITS | Encounter Summary ---
Author Organization [employer] Address [address] [facility] 7t [place] [address] Care Team Providers Care Senior Functional Analyst Name Role Phone Saul Barbour MD Primary Care Prov ider Reason for Visit * Reason Onset Date Comments Call Back Request 07/29/2023 Encounter Details Date Type Department Care Team ([facility] Contact Info) Description 07/29/2023 Telephone [facility] CHC MED & PEDS [address] [place], [place] [phone] Saul Barbour MD [address] [place] [address] Call Back Request Social History Tobacco Use [...] AM EST Pt advised to go to [facility] after being triaged yesterday. * Telephone Encounter [...] Description 03/14/2025 9:30 AM EDT Telemedicine [facility] MED & PEDS [address] [place] [address] Saul Barbour MD 505 [place] [address] 03/22/2025 1:00 PM EDT Office Visit [facility] ADULT DENTAL [address] [place] [address] Shaka Velazquez DMD 505 [place] [address] 06/08/2025 8:00 AM EST Office Visit [facility] ADULT DENTAL [address] [place] [address] Una Sultana documented as of this encounter Visit Diagnoses Not on filedocumented in this encounter Additional Health Concerns Assessment Noted Time PHQ-9 Depression Total Score: 18 024 10:06 AM EST documented as of this encounter Care Teams Senior Functional Analyst Relationship Specialty Start Date End Date Saul Barbour MD [address] [place] [address] PCP - General Internal Medicine 10/27/19 Harshad Ho 08/13/23 documented as of this encounter
--- OUTSIDE RECORDS SUMMARY | 2025-03-12 14:03 | XMS_ITS | Encounter Summary ---
Author Organization [employer] Address [address] [facility] 7t [place] [address] Care Team Providers Care Equestrian Trainer Name Role Phone Saul Barbour MD Primary Care Prov ider Reason for Visit * Reason Onset Date Comments Med Refill 04/25/2024 Encounter Details Date Type Department Care Team ([facility] st Contact Info) Description 04/25/2024 Telephone [facility] MEDICINE [address] [place] [address] Saul Barbour MD [address] [place], [place] [phone] Med Refill Social History Tobacco Use Types [...] 2:46 PM EST Medication was sent to [facility] #[id number] on 04/21/24 with 1 refill. * Telephone Encounter - Nicole Goldberg - 04/25/2024 2:34 PM EST TC from pt requesting medication refill. Medications needing refill : ondansetron ODT (Zofran-ODT) 4 MG disintegrating tablet To be sent to: [facility]/pharmacy #[id number] documented in this encounter Plan of Treatment Upcoming Encounters Date Type Department Care Team (Late st Contact Info) Description 03/14/2025 9:30 AM EDT Telemedicine [facility] MED & PEDS [address] [place] [address] Saul Barbour MD 505 [place] [address] 03/22/2025 1:00 PM EDT Office Visit [facility] ADULT DENTAL [address] [place] [address] Shaka Velazquez DMD 505 [place] [address] 06/08/2025 8:00 AM EST Office Visit [facility] CHC ADULT DENTAL [address] [place] [address] Una Sultana documented as of this encounter Visit Diagnoses Not on filedocumented in this encounter Additional Health Concerns Assessment Noted Time PHQ-9 Depression Total Score: 15 08/18/ 024 2:48 PM EDT documented as of this encounter Care Teams Equestrian Trainer Relationship Specialty Start Date End Date Saul Barbour MD 505 [place] [address] PCP - General Internal Medicine 10/27/19 Harshad Ho 08/13/23 documented as of this encounter
--- OUTSIDE RECORDS SUMMARY | 2025-03-12 14:03 | XMS_ITS | Encounter Summary ---
Author Organization [employer] Address [address] [address] [facility] [address] 7t [place] [address] Care Team Providers Care Lead Radiologic Technologist Name Role Phone Saul Barbour MD Primary Care Prov ider Reason for Visit * Reason Onset Date Comments Appointment 03/04/2023 Encounter Details Date Type Department Care Team (Late st Contact Info) Description 03/04/2023 Telephone [facility] [address] [place], [place] [phone] Ninoska Aguilar BDS Appointment Social History Tobacco [...] calls for [facility] come in though the [facility] and that I would relay message to office. It is an appt with Dr. Aguilar and he would jose to be scheduled with someone who can see himDR documented in this encounter Plan of Treatment Upcoming Encounters Date Type Department Care Team (Late st Contact Info) Description 03/14/2025 9:30 AM EDT Telemedicine [facility] MED & PEDS [address] [place] [address] Saul Barbour MD 505 [place] [address] 03/22/2025 1:00 PM EDT Office Visit [facility] ADULT DENTAL [address] [place] [address] Shaka Velazquez DMD 505 [place] [address] 06/08/2025 8:00 AM EST Office Visit [facility] ADULT DENTAL [address] [place] [address] Una Sultana documented as of this encounter Visit Diagnoses Not on filedocumented in this encounter Additional Health Concerns Assessment Noted Time PHQ-9 Depression Total Score: 26 022 10:52 AM EST documented as of this encounter Care Teams Lead Radiologic Technologist Relationship Specialty Start Date End Date Saul Barbour MD [address] [place] [address] PCP - General Internal Medicine 10/27/19 Harshad Caring 08/13/23 documented as of this encounter
--- OUTSIDE RECORDS SUMMARY | 2025-03-12 14:03 | XMS_ITS | Encounter Summary ---
Author Organization [employer] Address [address] [place] [address] 7 [place] [address] Care Team Providers Care Windmill Technician Name Role Phone Saul Barbour MD Primary Care Prov ider Encounter Details Date Type Department Care Team (Late st Contact Info) Description 04/23/2022 Abstract [facility] MED & PEDS [address] [place] [address] ProviderAndrea MD Social History Tobacco Use Types [...] Info) Description 03/14/2025 9:30 AM EDT Telemedicine [facility] MED & PEDS [address] [place] [address] Saul Barbour MD 505 [place] [address] 03/22/2025 1:00 PM EDT Office Visit [facility] ADULT DENTAL [address] [place] [address] Shaka Velazquez DMD 505 [place] [address] 06/08/2025 8:00 AM EST Office Visit [facility] ADULT DENTAL [address] [place] [address] Una Sultana documented as of this encounter Procedures Procedure Name Priority Date/Time Associated Diagnosis Comments COLONOSCOPY Routine 11/05/2021 COLONOSCOPY Routine 05/04/2011 documented in this encounter Results * Colonoscopy (11/05/2021) Colonoscopy performed Historical Provider HEALTH MAINTENANCE Final Result * Colonoscopy (05/04/2011) Colonoscopy performed Historical Provider HEALTH MAINTENANCE Final Result documented in this encounter Visit Diagnoses Not on filedocumented in this encounter Care Teams Windmill Technician Relationship Specialty Start Date End Date WhatleySaul Restrepo MD [address] [place] [address] [place] [address] PCP - General Internal Medicine 10/27/19 Harshad Ho 08/13/23 documented as of this encounter
--- OUTSIDE RECORDS SUMMARY | 2025-03-12 14:03 | XMS_ITS | Encounter Summary ---
Author Organization [employer] Address [address] 7t [place] [address] Care Team Providers Care Durable Medical Equipment Technician Name Role Phone Saul Barbour MD Primary Care Prov ider Encounter Details Date Type Department Care Team ([facility] st Contact Info) Description 06/30/2023 Orders Only [facility] CHC MED & PEDS [address] [place], [place] [phone] Saul Barbour MD [address] [place] [address] Social History Tobacco Use Types Packs/Day Years [...] 03/14/2025 9:30 AM EDT Telemedicine [facility] MED & PEDS [address] [place] [address] Saul Barbour MD [address] [place] [address] 03/22/2025 1:00 PM EDT Office Visit [facility] ADULT DENTAL [address] [place] [address] Shaka Velazquez, IRENE [address] [place] [address] 06/08/2025 8:00 AM EST Office Visit [facility] ADULT DENTAL [address] [place] [address] Una Sultana documented as of this encounter Visit Diagnoses Not on filedocumented in this encounter Additional Health Concerns Assessment Noted Time PHQ-9 Depression Total Score: 18 024 10:06 AM EST documented as of this encounter Care Teams Durable Medical Equipment Technician Relationship Specialty Start Date End Date Saul Barbour MD [address] [place] [address] PCP - General Internal Medicine 10/27/19 Harshad Ho 08/13/23 documented as of this encounter
--- OUTSIDE RECORDS SUMMARY | 2025-03-12 14:03 | XMS_ITS | Encounter Summary ---
Author Organization [employer] Address [address] 7t [place] [address] Care Team Providers Care Certified Physician Assistant Name Role Phone Saul Barbour MD Primary Care Prov ider Encounter Details Date Type Department Care Team ([facility] Contact Info) Description 05/25/2022 Abstract [facility] ADULT DENTAL [address] [place] [address] Angus Rosales DMD 505 [place], [place] [phone] Social History Tobacco Use Types Packs/Day Years [...] Upcoming Encounters Date Type Department Care Team ([facility] Contact Info) Description 03/14/2025 9:30 AM EDT Telemedicine [facility] CHC MED & PEDS [address] [place], [place] [phone] Saul Barbour MD 505 [place] [address] 03/22/2025 1:00 PM EDT Office Visit [facility] ADULT DENTAL [address] [place], [place] [phone] Marcus Shaka, IRENE 505 [place] [address] 06/08/2025 8:00 AM EST Office Visit [facility] ADULT DENTAL [address] [place] [address] Una Sultana Scheduled Orders Name Type Priority Associated Diagnoses Orde r Schedule 11 MF 11 MF RESIN-BASED COMPOSITE - 2 SURF, ANTERIOR Dental Routine [address] arting 02/04/2024 17 17 EXTRACTION, ERUPTED TOOTH OR EXPOSED ROOT (ELEVATION/FORCEPS REMOVAL) Dental Routine [address] arting 02/04/2024 7 MDFL 7 MDFL RESIN-BASED COMPOSITE - 4 OR MORE SURFACES (ANTERIOR) Dental Routine [address] arting 11/28/2024 6 MDF(V)L 6 MDF(V)L RESIN-BASED COMPOSITE - 4 OR MORE SURFACES (ANTERIOR) Dental Routine [address] arting 03/07/2025 5 (V) 5 (V) RESIN-BASED COMPOSITE - 3 SURF, POSTERIOR Dental Routine 1 Occurrences starting 03/07/2025 8 DF 8 DF RESIN-BASED COMPOSITE - 2 SURF, ANTERIOR Dental Routine [address] arting 03/07/2025 documented as of this encounter Procedures Procedure [...] documented as of this encounter Care Teams Certified Physician Assistant Relationship Specialty Start Date End Date Saul Barbour MD [address] [place] [address] PCP - General Internal Medicine 10/27/19 Harshad Ho 08/13/23 documented as of this encounter
--- OUTSIDE RECORDS SUMMARY | 2025-03-12 14:03 | XMS_ITS | Encounter Summary ---
Author Organization [employer] Address [address] [facility] [address] 7t [place] [address] Care Team Providers Care Crime Scene Analyst Name Role Phone Saul Barbour MD Primary Care Prov ider Encounter Details Date Type Department Care Team ([facility] st Contact Info) Description 11/12/2023 Telephone [facility] MEDICINE [address] [place] [address] Saul Barbour MD [address] [place], [place] [phone] Social History Tobacco Use Types Packs/Day Years [...] received a missed call from PCP however insurance underwriter sales does not see any notes, Please contact at [phone] documented in this encounter Plan of Treatment Upcoming Encounters Date Type Department Care Team (Late st Contact Info) Description 03/14/2025 9:30 AM EDT Telemedicine [facility] MED & PEDS [address] [place] [address] Saul Barbour MD 505 [place] [address] 03/22/2025 1:00 PM EDT Office Visit [facility] ADULT DENTAL [address] [place] [address] Shaka Velazquez DMD 505 [place] [address] 06/08/2025 8:00 AM EST Office Visit [facility] ADULT DENTAL [address] [place] [address] Una Sultana documented as of this encounter Visit Diagnoses Not on filedocumented in this encounter Additional Health Concerns Assessment Noted Time PHQ-9 Depression Total Score: 15 024 2:48 PM EDT documented as of this encounter Care Teams Crime Scene Analyst Relationship Specialty Start Date End Date Saul Barbour MD [address] [place] [address] PCP - General Internal Medicine 10/27/19 Harshad Ho 08/13/23 documented as of this encounter
--- OUTSIDE RECORDS SUMMARY | 2025-03-12 14:03 | XMS_ITS | Encounter Summary ---
Author Organization [employer] Address [address] 7t [place] [address] Care Team Providers Care Customer Service Sales Consultant Name Role Phone Saul Barbour MD Primary Care Prov ider Encounter Details Date Type Department Care Team ([facility] st Contact Info) Description 11/18/2023 Telephone [facility] CHC MED & PEDS [address] [place], [place] [phone] Saul Barbour MD [address] [place] [address] Social History Tobacco Use Types Packs/Day Years [...] stated the Lancet Device is ready for picking crew supervisor. She statedshe would call pt that it is ready to picking crew supervisor. * Telephone Encounter - Nakita Cuevas - 11/18/2023 1:13 PM EDT Tc from pt requesting Lancet Devices (Lancing Device) misc . States [facility] called [facility] and they have not yet [facility]. Please call pt to clarify . documented in this encounter Plan of Treatment Upcoming Encounters Date Type Department Care Team (Late st Contact Info) Description 03/14/2025 9:30 AM EDT Telemedicine [facility] MED & PEDS [address] [place] [address] Saul Barbour MD [address] [place] [address] 03/22/2025 1:00 PM EDT Office Visit [facility] ADULT DENTAL [address] [place] [address] Shaka Velazquez, IRENE 505 [place] [address] 06/08/2025 8:00 AM EST Office Visit [facility] ADULT DENTAL [address] [place] [address] Una Sultana documented as of this encounter Visit Diagnoses Not on filedocumented in this encounter Additional Health Concerns Assessment Noted Time PHQ-9 Depression Total Score: 15 08/18/ 024 2:48 PM EDT documented as of this encounter Care Teams Customer Service Sales Consultant Relationship Specialty Start Date End Date Saul Barbour MD [address] [place] [address] PCP - General Internal Medicine 10/27/19 Harshad Ho 08/13/23 documented as of this encounter
--- OUTSIDE RECORDS SUMMARY | 2025-03-12 14:03 | XMS_ITS | Encounter Summary ---
Author Organization [employer] Address [address] [facility] [address]t [place] [address] Care Team Providers Care Manager Fine Name Role Phone Saul Barbour MD Primary Care Prov ider Encounter Details Date Type Department Care Team ([facility] st Contact Info) Description 12/23/2023 Orders Only [facility] CHC MED & PEDS [address] [place], [place] [phone] Daryn Crowder MD [address] [place] [address] Right foot pain (Primary Dx) Social History [...] 03/14/2025 9:30 AM EDT Telemedicine [facility] MED & PEDS [address] [place] [address] Saul Barbour MD [address] [place] [address] 03/22/2025 1:00 PM EDT Office Visit [facility] ADULT DENTAL [address] [place] [address] Shaka Velazquez DMD [address] [place] [address] 06/08/2025 8:00 AM EST Office Visit [facility] ADULT DENTAL [address] [place] [address] Una Sultana Scheduled Orders Name Type Priority [...] documented as of this encounter Care Teams Manager Fine Relationship Specialty Start Date End Date Saul Barbour MD [address] [place] [address] PCP - General Internal Medicine 10/27/19 Harshad Ho 08/13/23 documented as of this encounter
--- OUTSIDE RECORDS SUMMARY | 2025-03-12 14:03 | XMS_ITS | Encounter Summary ---
Author Organization [employer] Address [address] [facility] 7t [place] [address] Care Team Providers Care Etl Developer Name Role Phone Saul Barbour MD Primary Care Prov ider Reason for Visit * Reason Comments Med Refill Encounter Details Date Type Department Care Team ([facility] st Contact Info) Description 03/03/2025 Refill [facility] CHC MED & PEDS [address] [place], [place] [phone] Saul Barbour MD 505 [place], [place] [phone] Diarrhea, unspecified type Social History Tobacco Use Types Packs/Day Years [...] [facility] [address] [place] [address] Saul Barbour MD [address] [place] [address] 03/22/2025 1:00 PM EDT Office Visit [facility] ADULT DENTAL [address] [place] [address] Shaka Velazquez DMD 505 [place] [address] 06/08/2025 8:00 AM EST Office Visit [facility] ADULT DENTAL [address] [place] [address] Una Sultana documented as of this encounter Visit Diagnoses Diagnosis Diarrhea, unspecified type documented in this encounter Additional Health Concerns Assessment Noted Time PHQ-9 Depression Total Score: 4 12/14/19 25 10:26 AM EDT documented as of this encounter Care Teams Etl Developer Relationship Specialty Start Date End Date Saul Barbour MD [address] [place] [address] PCP - General Internal Medicine 10/27/19 Harshad Ho 08/13/23 documented as of this encounter
--- OUTSIDE RECORDS SUMMARY | 2025-03-12 14:03 | XMS_ITS | Encounter Summary ---
Author Organization [employer] Address [address] [place] [address] 7t [place] [address] Care Team Providers Care Senior Software Engineering Manager Name Role Phone Saul Barbour MD Primary Care Prov ider Reason for Visit * Reason Comments Med Change Request Encounter Details Date Type Department Care Team ([facility] Contact Info) Description 11/10/2022 Refill [facility] MED & PEDS [address] [place] [address] Daryn Crowder MD 505 [place] [address] Chronic midline low back pain without sciatica [...] Upcoming Encounters Date Type Department Care Team ([facility] Contact Info) Description 03/14/2025 9:30 AM EDT Telemedicine [facility] MED & PEDS [address] [place] [address] Saul Barbour MD [address] [place] [address] 03/22/2025 1:00 PM EDT Office Visit [facility] ADULT DENTAL 505 [place] [address] Shaka Velazquez, IRENE 505 [place] [address] 06/08/2025 8:00 AM EST Office Visit [facility] ADULT DENTAL [address] [place] [address] Una Sultana documented as of this encounter Visit Diagnoses Diagnosis Chronic midline low back pain without sciatica documented in this encounter Additional Health Concerns Assessment Noted Time PHQ-9 Depression Total Score: 26 022 10:52 AM EST documented as of this encounter Care Teams Senior Software Engineering Manager Relationship Specialty Start Date End Date Saul Barbour MD [address] [place] [address] PCP - General Internal Medicine 10/27/19 Harshad Ho 08/13/23 documented as of this encounter
--- OUTSIDE RECORDS SUMMARY | 2025-03-12 14:03 | XMS_ITS | Encounter Summary ---
Author Organization [employer] Address [address] [facility] [address] [address] 7t [place] [address] Care Team Providers Care Room Service Manager Name Role Phone Saul Barbour MD Primary Care Prov ider Reason for Visit * Reason Comments Med Refill Encounter Details Date Type Department Care Team ([facility] st Contact Info) Description 11/18/2023 Refill [facility] MEDICINE [address] [place] [address] Saul Barbour MD [address] [place], [place] [phone] Social History Tobacco Use Types Packs/Day Years [...] 9:30 AM EDT Telemedicine [facility] MED & PEDS 505 [place] [address] Saul Barbour MD 505 [place] [address] 03/22/2025 1:00 PM EDT Office Visit [facility] ADULT DENTAL 505 [place] [address] Shaka Velazquez DMD 505 [place] [address] 06/08/2025 8:00 AM EST Office Visit [facility] ADULT DENTAL 505 [place] [address] Una Sultana documented as of this encounter Visit Diagnoses Not on filedocumented in this encounter Additional Health Concerns Assessment Noted Time PHQ-9 Depression Total Score: 15 024 2:48 PM EDT documented as of this encounter Care Teams Room Service Manager Relationship Specialty Start Date End Date Saul Barbour MD 505 [place] [address] PCP - General Internal Medicine 10/27/19 Harshad Ho 08/13/23 documented as of this encounter
--- OUTSIDE RECORDS SUMMARY | 2025-03-12 14:03 | XMS_ITS | Encounter Summary ---
Author Organization [employer] Address [address] 7t [place] [address] Care Team Providers Care Linen Aide Name Role Phone Saul Barbour MD Primary Care Prov ider Encounter Details Date Type Department Care Team ([facility] st Contact Info) Description 03/12/2025 Orders Only GENERIC EXTERNAL DATA DEPARTMENT Provider, Generic External Data Social History Tobacco Use Types Packs/Day Years [...] 9:30 AM EDT Telemedicine [facility] MED & PEDS 505 [place], [place] [phone] Saul Barbour MD 505 [place] [address] 03/22/2025 1:00 PM EDT Office Visit [facility] ADULT DENTAL 505 [place], [place] [phone] Shaka Velazquez, IRENE 505 [place], [place] [phone] 06/08/2025 8:00 AM EST Office Visit [facility] ADULT DENTAL 505 [place], [place] [phone] Una Sultana documented as of this encounter Procedures Procedure Name Priority Date/Time Associated Diagnosis Comments VENOUS BLOOD GAS Routine 03/12/2025 12:1 9 PM EDT documented in this encounter Results * (ABNORMAL) VENOUS BLOOD GAS (03/12/2025 12:19 PM EDT) VBG pH 7.44(H) 7.32 - 7.43 [facility] VBG PCO2 45 mmHg [facility] VBG PO2 29 mmHg [facility] VBG Base Excess 6.1 mmol/L [facility] VBG HCO3 31(H) 22 - 26 mmol/L [facility] O2 Sat, Santana 31.0 % [facility] 03/12/2025 12:1 9 PM EDT 03/12/2025 12:28 PM EDT us Generic External Data Provider LAB BLOOD ORDERAB LES Final Result [facility] [address] [place] [address] [phone] documented in this encounter Visit Diagnoses Not on filedocumented in this encounter Additional Health Concerns Assessment Noted Time PHQ-9 Depression Total Score: 4 12/14/19 25 10:26 AM EDT documented as of this encounter Care Teams Linen Aide Relationship Specialty Start Date End Date Saul Barbour MD [address] [place] [address] PCP - General Internal Medicine 10/27/19 Harshad Caring 08/13/23 documented as of this encounter
--- OUTSIDE RECORDS SUMMARY | 2025-03-12 14:03 | XMS_ITS | Encounter Summary ---
Author Organization [employer] Address [address] [facility] 7t [place] [address] Care Team Providers Care Car Repairer Pullman Name Role Phone Saul Barbour MD Primary Care Prov ider Reason for Visit * Reason Onset Date Comments Med Refill 01/30/2025 Encounter Details Date Type Department Care Team ([facility] st Contact Info) Description 01/30/2025 Telephone [facility] MEDICINE [address] [place] [address] Saul Barbour MD [address] [place], [place] [phone] Med Refill Social History Tobacco Use Types [...] Telephone Encounter - Ml Robles LPN - 01/30/2025 11:59 AM EDT Medication was sent to [facility] #[id number] on 09/04/24 90 day supply with 3 refills. LASTEX OPERATOR checked on 01/30/25 last filled on 12/04/24 and has refills. * Telephone Encounter - Mikel Baron - 01/30/2025 11:56 AM EDT TC from pt requesting medication refill. Medications needing refill: gabapentin (Neurontin) 600 MG tablet To be sent to: [facility]/pharmacy #[id number] - [place] - [address] [place] [address] documented in this encounter Plan of Treatment Upcoming Encounters Date Type Department Care Team (Late st Contact Info) Description 03/14/2025 9:30 AM EDT Telemedicine [facility] MED & PEDS 505 [place] [address] Saul Barbour MD 505 [place] [address] 03/22/2025 1:00 PM EDT Office Visit [facility] ADULT DENTAL [address] [place] [address] Shaka Velazquez, IRENE 505 [place] [address] 06/08/2025 8:00 AM EST Office Visit [facility] ADULT DENTAL 505 [place] [address] Una Sultana documented as of this encounter Visit Diagnoses Diagnosis Type 2 diabetes mellitus with stage 3b chronic kidney disease, with long-term current use of insulin (HCC) documented in this encounter Additional Health Concerns Assessment Noted Time PHQ-9 Depression Total Score: 4 12/14/19 25 10:26 AM EDT documented as of this encounter Care Teams Car Repairer Pullman Relationship Specialty Start Date End Date Saul Barbour MD 505 [place] [address] PCP - General Internal Medicine 10/27/19 Harshad Ho 08/13/23 documented as of this encounter
--- OUTSIDE RECORDS SUMMARY | 2025-03-12 14:03 | XMS_ITS | Encounter Summary ---
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 Information provided to Michelle to contact their [...] taking medication. You can contact Rita at [phone]. documented in this encounter Plan of Treatment Upcoming Encounters Date Type Department Care Team (Late st Contact Info) Description 03/14/2025 9:30 AM EDT Telemedicine [facility] MED & PEDS [address] [place] [address] Saul Barbour MD 505 [place] [address] 03/22/2025 1:00 PM EDT Office Visit [facility] ADULT DENTAL [address] [place] [address] Shaka Velazquez DMD 505 [place] [address] 06/08/2025 8:00 AM EST Office Visit [facility] ADULT DENTAL 505 [place] [address] Una Sultana documented as of this encounter Visit Diagnoses Not on filedocumented in this encounter Additional Health Concerns Assessment Noted Time PHQ-9 Depression Total Score: 18 024 10:06 AM EST documented as of this encounter Care Teams Face Man Relationship Specialty Start Date End Date Saul Barbour MD 505 [place] [address] PCP - General Internal Medicine 10/27/19 Harshad Caring 08/13/23 documented as of this encounter
--- OUTSIDE RECORDS SUMMARY | 2025-03-12 14:03 | XMS_ITS | Encounter Summary ---
Author Organization [employer] Address [address] [facility] 7t [place] [address] Care Team Providers Care Drop Hammer Operator Helper Name Role Phone Saul Barbour MD Primary Care Prov ider Reason for Visit * Reason Onset Date Comments Med Refill 12/13/2023 Encounter Details Date Type Department Care Team ([facility] st Contact Info) Description 12/13/2023 Telephone [facility] MEDICINE 230 [place] [address] Saul Barbour MD [address] [place], [place] [phone] Med Refill Social History Tobacco Use Types [...] disintegrating tablet To be sent to: [facility]/pharmacy #[id number] [place], [place] - [address] [place] [address] documented in this encounter Plan of Treatment Upcoming Encounters Date Type Department Care Team (Late st Contact Info) Description 03/14/2025 9:30 AM EDT Telemedicine [facility] MED & PEDS 505 [place] [address] Saul Barbour MD 505 [place] [address] 03/22/2025 1:00 PM EDT Office Visit [facility] ADULT DENTAL 505 [place] [address] Shaka Velazquez DMD 505 [place] [address] 06/08/2025 8:00 AM EST Office Visit [facility] ADULT DENTAL 505 [place] [address] Una Sultana documented as of this encounter Visit Diagnoses Not on filedocumented in this encounter Additional Health Concerns Assessment Noted Time PHQ-9 Depression Total Score: 15 08/18/ 024 2:48 PM EDT documented as of this encounter Care Teams Drop Hammer Operator Helper Relationship Specialty Start Date End Date Saul Barbour MD [address] [place] [address] PCP - General Internal Medicine 10/27/19 Harshad Ho 08/13/23 documented as of this encounter
--- OUTSIDE RECORDS SUMMARY | 2025-03-12 14:03 | XMS_ITS | Encounter Summary ---
Author Organization [employer] Address 75 [facility] 7 [place] [address] Care Team Providers Care Licensed Mortician Name Role Phone Saul Barbour MD Primary Care Prov ider Reason for Visit * Reason Onset Date Comments FYI 07/28/2023 Encounter Details Date Type Department Care Team ([facility] Contact Info) Description 07/28/2023 Telephone [facility] CHC MED & PEDS [address] [place] [address] Saul Barbour MD 505 [place] [address] Social History Tobacco Use Types Packs/Day Years [...] Miscellaneous Notes * Telephone Encounter - Morena oHrne RN - 07/29/2023 2:01 PM EST TC [...] states that he reported this to [facility] nurse, Christos, and was not advised to [...] recent records. TC placed again to Harshad [place] and asked if I could be transferred to a nurse who is working today to review recent BP and blood glucose readings from patient. Was transferred to the head of Behavioral Health, who said notes from this week have not yet been entered but an entry from last week showed the following BP reading. 07/21/23: 106/67 Gave him the nurses' fax number at [facility] to send notes and our call back number. Routing note to PCP so he is aware. Tc from christos with harshad ho calling to advise provider pt has been having low blood pressure and low sugars for the past week. Pt asl ohad a fall this morning. Pt is asymptomatic. Any questions, please contact christos at [phone] * Telephone Encounter - Deidra Simmons - 07/28/2023 10:14 AM EST Tc from christso with harshad ho calling to advise provider pt has been having low blood pressure and low sugars for the past week. Pt asl ohad a fall this morning. Pt is asymptomatic. Any questions, please contact christos at [phone] documented in this encounter Plan of Treatment Upcoming Encounters Date Type Department Care Team (Late st Contact Info) Description 03/14/2025 9:30 AM EDT Telemedicine [facility] MED & PEDS 505 [place] [address] Saul Barbour MD 505 [place] [address] 03/22/2025 1:00 PM EDT Office Visit [facility] ADULT DENTAL 505 [place] [address] Shaka Velazquez, IRENE 505 [place] [address] 06/08/2025 8:00 AM EST Office Visit [facility] CHC ADULT DENTAL [address] [place] [address] Una Sultana documented as of this encounter Visit Diagnoses Not on filedocumented in this encounter Additional Health Concerns Assessment Noted Time PHQ-9 Depression Total Score: 18 024 10:06 AM EST documented as of this encounter Care Teams Licensed Mortician Relationship Specialty Start Date End Date Saul Barbour MD 505 [place] [address] PCP - General Internal Medicine 10/27/19 Harshad Ho 08/13/23 documented as of this encounter
--- OUTSIDE RECORDS SUMMARY | 2025-03-12 14:03 | XMS_ITS | Encounter Summary ---
Author Organization [employer] Address [address] [facility] 7t [place] [address] Care Team Providers Care Airfield Defence Guard Name Role Phone Saul Barbour MD Primary Care Prov ider Reason for Visit * Reason Onset Date Comments Durable Medical Equipment 08/03/2023 Encounter Details Date Type Department Care Team ([facility] st Contact Info) Description 08/03/2023 Telephone [facility] MEDICINE 230 [place] [address] Saul Barbour MD [address] [place], [place] [phone] Durable Medical Equipment Social History Tobacco Use [...] [facility] MED & PEDS 505 [place] [address] Saul Barbour MD 505 [place] [address] 03/22/2025 1:00 PM EDT Office Visit [facility] ADULT DENTAL 505 [place] [address] Shaka Velazquez DMD 505 [place] [address] 06/08/2025 8:00 AM EST Office Visit [facility] ADULT DENTAL 505 [place] [address] Una Sultana documented as of this encounter Visit Diagnoses Not on filedocumented in this encounter Additional Health Concerns Assessment Noted Time PHQ-9 Depression Total Score: 18 024 10:06 AM EST documented as of this encounter Care Teams Airfield Defence Guard Relationship Specialty Start Date End Date Saul Barbour MD [address] [place] [address] PCP - General Internal Medicine 10/27/19 Harshad Ho 08/13/23 documented as of this encounter
--- OUTSIDE RECORDS SUMMARY | 2025-03-12 14:03 | XMS_ITS | Encounter Summary ---
Author Organization [employer] Address [address] [facility] [address] 7t [place] [address] Care Team Providers Care Coat Padder Name Role Phone Saul Barbour MD Primary Care Prov ider Encounter Details Date Type Department Care Team (Late st Contact Info) Description 05/19/2024 Orders Only [facility] CHC MED & PEDS [address] [place], [place] [phone] ProviderAndrea MD Social History Tobacco Use Types [...] Info) Description 03/14/2025 9:30 AM EDT Telemedicine [facility] MED & PEDS 505 [place] [address] Saul Barbour MD 505 [place] [address] 03/22/2025 1:00 PM EDT Office Visit [facility] ADULT DENTAL 505 [place] [address] Shaka Velazquez DMD 505 [place] [address] 06/08/2025 8:00 AM EST Office Visit [facility] ADULT DENTAL 505 [place] [address] Una Sultana documented as of this encounter [...] documented as of this encounter Care Teams Coat Padder Relationship Specialty Start Date End Date Saul Barbour MD 505 [place] [address] PCP - General Internal Medicine 10/27/19 Harshad Ho 08/13/23 documented as of this encounter
--- OUTSIDE RECORDS SUMMARY | 2025-03-12 14:03 | XMS_ITS | Encounter Summary ---
Author Organization [employer] Address 75 [facility] 7 [place] [address] Care Team Providers Care Clearance Center Manager Name Role Phone Saul Barbour MD Primary Care Prov ider Reason for Visit * Reason Onset Date Comments Order 12/21/2023 Encounter Details Date Type Department Care Team ([facility] st Contact Info) Description 12/21/2023 Telephone [facility] CHC MED & PEDS 505 [place] [address] Saul Barbour MD 505 [place] [address] Order Social History Tobacco Use Types Packs/Day [...] EDT Telemedicine [facility] MED & PEDS 505 [place] [address] Saul Barbour MD 505 [place] [address] 03/22/2025 1:00 PM EDT Office Visit [facility] ADULT DENTAL 505 [place] [address] Shaka Velazquez DMD 505 [place] [address] 06/08/2025 8:00 AM EST Office Visit [facility] ADULT DENTAL [address] [place] [address] Una Sultana documented as of this encounter Visit Diagnoses Not on filedocumented in this encounter Additional Health Concerns Assessment Noted Time PHQ-9 Depression Total Score: 15 024 2:48 PM EDT documented as of this encounter Care Teams Clearance Center Manager Relationship Specialty Start Date End Date Saul Barbour MD 505 [place] [address] PCP - General Internal Medicine 10/27/19 Harshad Ho 08/13/23 documented as of this encounter
--- OUTSIDE RECORDS SUMMARY | 2025-03-12 14:03 | XMS_ITS | Encounter Summary ---
Author Organization [employer] Address [address] [place] [address] 7 [place] [address] Care Team Providers Care Pie Icer Machine Name Role Phone Saul Barbour MD Primary Care Prov ider Encounter Details Date Type Department Care Team (Latest Contact Info) Description 09/12/2020 Abstract [facility] Dental, Provider, DDS Social History Tobacco [...] [facility] MED & PEDS 505 [place] [address] Saul Barbour MD 505 [place] [address] 03/22/2025 1:00 PM EDT Office Visit [facility] ADULT DENTAL 505 [place] [address] Shaka Velazquez DMD 505 [place] [address] 06/08/2025 8:00 AM EST Office Visit [facility] ADULT DENTAL 505 [place] [address] Una Sultana documented as of this encounter Visit Diagnoses Not on filedocumented in this encounter Care Teams Pie Icer Machine Relationship Specialty Start Date End Date Saul Barbour MD [address] [place] [address] PCP - General Internal Medicine 10/27/19 Harshad Ho 08/13/23 documented as of this encounter
--- OUTSIDE RECORDS SUMMARY | 2025-03-12 14:03 | XMS_ITS | Encounter Summary ---
Author Organization [employer] Address [address] [facility] [address] 7t [place] [address] Care Team Providers Care Hot Mill Observer Name Role Phone Saul Barbour MD Primary Care Prov ider Encounter Details Date Type Department Care Team ([facility] st Contact Info) Description 06/25/2023 Telephone [facility] MEDICINE 230 [place] [address] Saul Barbour MD [address] [place], [place] [phone] Social History Tobacco Use Types Packs/Day Years [...] [facility] MED & PEDS 505 [place] [address] Saul Barbour MD 505 [place] [address] 03/22/2025 1:00 PM EDT Office Visit [facility] ADULT DENTAL 505 [place] [address] Shaka Velazquez, IRENE 505 [place] [address] 06/08/2025 8:00 AM EST Office Visit [facility] ADULT DENTAL 505 [place] [address] Una Sultana documented as of this encounter Visit Diagnoses Not on filedocumented in this encounter Additional Health Concerns Assessment Noted Time PHQ-9 Depression Total Score: 18 024 10:06 AM EST documented as of this encounter Care Teams Hot Mill Observer Relationship Specialty Start Date End Date Saul Barbour MD 505 [place] [address] PCP - General Internal Medicine 10/27/19 Harshad Ho 08/13/23 documented as of this encounter
--- OUTSIDE RECORDS SUMMARY | 2025-03-12 14:03 | XMS_ITS | Encounter Summary ---
Author Organization [employer] Address 75 [facility] 7 [place] [address] Care Team Providers Care Avionics System Engineer Name Role Phone Saul Barbour MD Primary Care Prov ider Reason for Visit * Reason Onset Date Comments Medication Question 08/02/2023 Encounter Details Date Type Department Care Team ([facility] Contact Info) Description 08/02/2023 Telephone [facility] CHC MED & PEDS 505 [place], [place] [phone] Saul Barbour MD 505 [place] [address] Medication Question Social History Tobacco Use Types [...] new script for azithromycin was sent to [facility] today by and should be waiting for him. Patient reports that diarrhea has improved on the antibiotic and he is heading in the right direction. He will pickle sorter new script. Patient states that freestyle glucometer [...] 9:30 AM EDT Telemedicine [facility] MED & PEDS 505 [place] [address] Saul Barbour MD 505 [place] [address] 03/22/2025 1:00 PM EDT Office Visit [facility] ADULT DENTAL 505 [place] [address] Shaka Velazquez, IRENE 505 [place] [address] 06/08/2025 8:00 AM EST Office Visit [facility] ADULT DENTAL 505 [place] [address] Una Sultana documented as of this encounter Visit Diagnoses Not on filedocumented in this encounter Additional Health Concerns Assessment Noted Time PHQ-9 Depression Total Score: 18 024 10:06 AM EST documented as of this encounter Care Teams Avionics System Engineer Relationship Specialty Start Date End Date Saul Barbour MD 505 [place] [address] PCP - General Internal Medicine 10/27/19 Harshad Ho 08/13/23 documented as of this encounter
--- OUTSIDE RECORDS SUMMARY | 2025-03-12 14:03 | XMS_ITS | Encounter Summary ---
Author Organization [employer] Address 75 [facility] 7 [place] [address] Care Team Providers Care Bark Scaler Name Role Phone Saul Barbour MD Primary Care Prov ider Reason for Visit * Reason Onset Date Comments Med Refill 06/23/2023 Encounter Details Date Type Department Care Team ([facility] Contact Info) Description 06/23/2023 Telephone [facility] CHC MED & PEDS 505 [place], [place] [phone] Saul Barbour MD 505 [place] [address] Med Refill Social History Tobacco Use Types [...] - 06/23/2023 9:46 AM EST TC from [facility] Visiting nurse requesting medication refill. Medications needing refill : metoprolol tartrate (Lopressor) 25 MG tablet To be sent to: [facility]/pharmacy #[id number] documented in this encounter Plan of Treatment Upcoming Encounters Date Type Department Care Team (Late st Contact Info) Description 03/14/2025 9:30 AM EDT Telemedicine [facility] MED & PEDS [address] [place] [address] Saul Barbour MD 505 [place] [address] 03/22/2025 1:00 PM EDT Office Visit [facility] ADULT DENTAL [address] [place] [address] Shaka Velazquez DMD 505 [place] [address] 06/08/2025 8:00 AM EST Office Visit [facility] ADULT DENTAL [address] [place] [address] Una Sultana documented as of this encounter Visit Diagnoses Not on filedocumented in this encounter Additional Health Concerns Assessment Noted Time PHQ-9 Depression Total Score: 18 024 10:06 AM EST documented as of this encounter Care Teams Bark Scaler Relationship Specialty Start Date End Date Saul Barbour MD [address] [place] [address] PCP - General Internal Medicine 10/27/19 Harshad Ho 08/13/23 documented as of this encounter
--- OUTSIDE RECORDS SUMMARY | 2025-03-12 14:03 | XMS_ITS | Encounter Summary ---
Author Organization [employer] Address [address] [facility] 7 [place] [address] Care Team Providers Care Travel Physical Therapist Name Role Phone Saul Barbour MD Primary Care Prov ider Reason for Visit * Reason Onset Date Comments Med Refill 11/30/2023 Encounter Details Date Type Department Care Team ([facility] Contact Info) Description 11/30/2023 Telephone [facility] CH[facility] MED & PEDS [address] [place], [place] [phone] Saul Barbour MD [address] [place] [address] Med Refill Social History Tobacco Use Types [...] 1:03 PM EDT Medication was sent to [facility] #[id number] on 11/23/23 with 1 refill. * Telephone Encounter - Nakita Cuevas - 11/30/2023 12:14 PM EDT TC from pt requesting medication refill. Medications needing refill : ondansetron ODT (Zofran-ODT) 4 MG disintegrating tablet To be sent to: [facility]/pharmacy #[id number] - [id number] documented in this encounter Plan of Treatment Upcoming Encounters Date Type Department Care Team (Late st Contact Info) Description 03/14/2025 9:30 AM EDT Telemedicine [facility] MED & PEDS [address] [place] [address] Saul Barbour MD [address] [place] [address] 03/22/2025 1:00 PM EDT Office Visit [facility] ADULT DENTAL [address] [place] [address] Shaka Velazquez DMD [address] [place] [address] 06/08/2025 8:00 AM EST Office Visit [facility] ADULT DENTAL [address] [place] [address] Una Sultana documented as of this encounter Visit Diagnoses Not on filedocumented in this encounter Additional Health Concerns Assessment Noted Time PHQ-9 Depression Total Score: 15 024 2:48 PM EDT documented as of this encounter Care Teams Travel Physical Therapist Relationship Specialty Start Date End Date Saul Barbour MD [address] [place] [address] PCP - General Internal Medicine 10/27/19 Harshad Ho 08/13/23 documented as of this encounter
--- OUTSIDE RECORDS SUMMARY | 2025-03-12 14:03 | XMS_ITS | Encounter Summary ---
Author Organization [employer] Address [address] [facility] 7t [place] [address] Care Team Providers Care Code And Test Clerk Name Role Phone Saul Barbour MD Primary Care Prov ider Encounter Details Date Type Department Care Team ([facility] st Contact Info) Description 01/30/2025 Orders Only [facility] [address] [place] [address] Provider, MD Andrea Social History Tobacco Use Types Packs/Day Years [...] Info) Description 03/14/2025 9:30 AM EDT Telemedicine [facility] MED & PEDS [address] [place] [address] Saul Barbour MD 505 [place] [address] 03/22/2025 1:00 PM EDT Office Visit [facility] ADULT DENTAL [address] [place] [address] Shaka Velazquez, DMD 505 [place] [address] 06/08/2025 8:00 AM EST Office Visit [facility] ADULT DENTAL [address] [place] [address] Una Sultana documented as of this encounter Procedures Procedure Name Priority Date/Time Associated Diagnosis Comments XR FOOT 3+ VIEWS RIGHT Routine 2025 12:11 PM EDT documented in this encounter Results * XR Foot 3+ Views Right (2025 12:11 PM EDT) Anatomical Region Laterality Modality Lower Extremities, Foot Right Radiogra phic Imaging us Historical Provider MD YOUSSEF XR PROCEDURES Final R esult documented in this encounter Visit Diagnoses Not on filedocumented in this encounter Additional Health Concerns Assessment Noted Time PHQ-9 Depression Total Score: 4 12/14/19 25 10:26 AM EDT documented as of this encounter Care Teams Code And Test Clerk Relationship Specialty Start Date End Date WhatleySaul Restrepo MD [address] [place] [address] PCP - General Internal Medicine 10/27/19 Harshad Ho 08/13/23 documented as of this encounter
--- OUTSIDE RECORDS SUMMARY | 2025-03-12 14:03 | XMS_ITS | Encounter Summary ---
Author Organization [employer] Address [address] [place] [address] 7 [place] [address] Care Team Providers Care Linux Network Engineer Name Role Phone Saul Barbour MD Primary Care Prov ider Encounter Details Date Type Department Care Team (Latest Contact Info) Description 07/27/2018 Abstract [facility] CONVERSIONS Dental, Provider, DDS Social History [...] Care Team ( st Contact Info) Description 03/14/2025 9:30 AM EDT Telemedicine [facility] MED & PEDS [address] [place] [address] Saul Barbour MD 505 [place] [address] 03/22/2025 1:00 PM EDT Office Visit [facility] ADULT DENTAL [address] [place] [address] Shaka Velazquez DMD [address] [place] [address] 06/08/2025 8:00 AM EST Office Visit [facility] ADULT DENTAL [address] [place] [address] Una Sultana documented as of this encounter Visit Diagnoses Not on filedocumented in this encounter Care Teams Linux Network Engineer Relationship Specialty Start Date End Date Saul Barbour MD [address] [place] [address] PCP - General Internal Medicine 10/27/19 Harshad Ho 08/13/23 documented as of this encounter
--- OUTSIDE RECORDS SUMMARY | 2025-03-12 14:03 | XMS_ITS | Encounter Summary ---
Author Organization [employer] Address [address] [facility] 7 [place] [address] Care Team Providers Care Informal Waiter/Waitress Name Role Phone Saul Barbour MD Primary Care Prov ider Reason for Visit * Reason Onset Date Comments Nurse Triage 07/30/2023 Encounter Details Date Type Department Care Team ([facility] st Contact Info) Description 07/30/2023 Telephone [facility] CHC MED & PEDS [address] [place] [address] Saul Barbour MD [address] [place] [address] Nurse Triage Social History Tobacco Use Types [...] accepted this outcome Please contact pt @ [phone] documented in this encounter Plan of Treatment Upcoming Encounters Date Type Department Care Team (Late st Contact Info) Description 03/14/2025 9:30 AM EDT Telemedicine [facility] MED & PEDS [address] [place] [address] Saul Barbour MD [address] [place] [address] 03/22/2025 1:00 PM EDT Office Visit [facility] ADULT DENTAL [address] [place] [address] Shaka Velazquez DMD 505 [place] [address] 06/08/2025 8:00 AM EST Office Visit [facility] ADULT DENTAL [address] [place] [address] Una Sultana documented as of this encounter Visit Diagnoses Diagnosis Diarrhea, unspecified type documented in this encounter Additional Health Concerns Assessment Noted Time PHQ-9 Depression Total Score: 18 024 10:06 AM EST documented as of this encounter Care Teams Informal Waiter/Waitress Relationship Specialty Start Date End Date Saul Barbour MD [address] [place] [address] PCP - General Internal Medicine 10/27/19 Harshad Ho 08/13/23 documented as of this encounter
--- OUTSIDE RECORDS SUMMARY | 2025-03-12 14:03 | XMS_ITS | Encounter Summary ---
Author Organization [employer] Address [address] [facility] [address] [place] [address] Care Team Providers Care Pump Operator Name Role Phone Saul Barbour MD Primary Care Prov ider Encounter Details Date Type Department Care Team ([facility] st Contact Info) Description 11/12/2023 Telephone [facility] GENERAL MEDICINE [address] [place] [address] Saul Barbour MD [address] [place], [place] [phone] Social History Tobacco Use Types Packs/Day Years [...] [facility] [address] [place] [address] Saul Barbour MD [address] [place] [address] 03/22/2025 1:00 PM EDT Office Visit [facility] ADULT DENTAL [address] [place] [address] Shaka Velazquez, IRENE 505 [place] [address] 06/08/2025 8:00 AM EST Office Visit [facility] ADULT DENTAL [address] [place] [address] Una Sultana documented as of this encounter Visit Diagnoses Not on filedocumented in this encounter Additional Health Concerns Assessment Noted Time PHQ-9 Depression Total Score: 15 024 2:48 PM EDT documented as of this encounter Care Teams Pump Operator Relationship Specialty Start Date End Date Saul Barbour MD [address] [place] [address] PCP - General Internal Medicine 10/27/19 Harshad Ho 08/13/23 documented as of this encounter
--- OUTSIDE RECORDS SUMMARY | 2025-03-12 14:03 | XMS_ITS | Clinical Summary ---
Author Organization [facility] Address [address] [facility] [address] [place] [address] Phone Care Team Providers Care President & Ceo Name Role Phone Saul Whatley Primary Care Provider Allergies Active Allergy Reactions Criticality Noted Date Comments Molds & Smuts 07/31/2021 Other reaction(s): upper resp congestion Pollen Extract 07/31/2021 Other reaction(s): sneezing Medications Mapap Arthritis Pain 650 MG 8 hr tablet TAKE 1 TABLET BY ORAL ROUTE EVERY 8 HOURS NEEDED. DO NOT BREAK, CRUSH, DISSOLVE AND/OR CHEW. 07/16/19 22 Active albuterol HFA (PROVENTIL HFA;VENTOLIN HFA) 108 (90 Base) MCG/ACT inhaler INHALE 2 PUFFS BY MOUTH EVERY 4-6 HOURS NEEDEDF OR SHORTNESS OF BREATH/WHEEZING 07/16/19 22 Active Aspirin Low Dose 81 MG EC tablet Take 81 mg by mouth 1 (one) time each day 07/25/19 22 Active atorvastatin (LIPITOR) 80 MG tablet Take 80 mg by mouth 06/02/20 20 Active azelastine (ASTELIN) 0.1 % nasal spray 0 Refills, Maintenance, 06/03/21 1:25:00 EST, Partial fill upon patient request if the prescription is for a schedule II opioid drug. 06/02/20 20 Active cholecalcifero l (VITAMIN D-3) 25 MCG (1000 UT) tablet Take 1,000 Units by mouth 1 (one) time each day 05/25/20 21 Active Trelegy Ellipta 200-62.5-25 MCG/INH aerosol powder INHALE 1 PUFF ONCE DAY 07/16/19 22 Active Alaway 0.025 % ophthalmic solution INSTIL 1 DROP INTO AFFECTED EYE TWICE A DAY 07/16/19 22 Active metoprolol tartrate 25 MG tablet TAKE 1 TABLET BY MOUTH TWO TIMES A DAY 07/15/19 22 Active naltrexone (DEPADE) 50 MG tablet Take 25 mg by mouth 07/25/19 22 Active QUEtiapine (SEROquel) 100 MG tablet Take 200 mg by mouth every night 07/25/19 22 Active thiamine (VITAMIN B-1) 100 MG tablet 07/15/19 22 Active Testosterone 20.25 MG/ACT (1.62%) gel APPLY 2 PUMPS TOPICALLY DAILY OVER MAX AREA - ALTERNATE SHOULDERS ON ALTERNATE DAYS 04/04/20 22 Active tadalafil (CIALIS) 20 MG tablet take 1 tablet daily As Needed for sexual activity; administer approximately 30min before sexual activity; do not use more than 1 dose per 24hrs 02/18/20 22 Active gabapentin (NEURONTIN) 600 MG tablet Take 600 mg by mouth 04/06/20 22 Active FLUoxetine (PROzac) 40 MG capsule Take by mouth 1 (one) time each day 03/31/20 22 Active ALBUTEROL IN TAKE 2 PUFFS BY MOUTH EVERY 4 TO 6 HOURS NEEDED FOR SHORTNESS OF BREATH OR WHEEZING FOR 30 DAYS 06/26/19 23 Active buPROPion XL (WELLBUTRIN XL) 150 MG 24 hr tablet Take 150 mg by mouth 1 (one) time each day 12/03/19 23 Active loperamide (IMODIUM) 2 MG capsule TAKE 1 CAPSULE BY MOUTH EVERY 4 HOURS NEEDED FOR LOOSE STOOL. NOT TO EXCEED 8 CAPSULES IN 24 HOURS. 10/27/19 23 Active ipratropium-al buterol (DUO-NEB) 0.5-2.5 mg/3 mL nebulizer solution INHALE 1.5ML (1/2 VIAL) VIA NEBULIZER EVERY 4 TO 6 HOURS NEEDED FOR WHEEZING 12/01/19 23 Active folic acid (FOLVITE) 1 MG tablet Take 1,000 mcg by mouth 1 (one) time each day 10/27/19 23 Active tadalafil (CIALIS) 10 MG tablet TAKE ONE TABLET BY MOUTH DAILY FOR sexual activity, DAILY medication 12/15/19 23 Active amLODIPine (NORVASC) 5 MG tabletIndicati ons:Hypertensi on Take 1 tablet (5 mg total) by mouth 1 (one) time each day 90 tablet 3 01/24/20 24 Active Creon 97839-588184 units capsule delayed-releas e particles TAKE 1 CAPSULE BY MOUTH 3 TIMES A DAY WITH BREAKFAST,LUNCH AND EVENING MEAL Active dicyclomine (BENTYL) 10 MG capsule Take 1 capsule by mouth in the morning and 1 capsule at noon and 1 capsule in the evening and 1 capsule before bedtime. 12/28/19 24 Active FLUoxetine (PROzac) 20 MG capsuleIndicat ions:Depressio n Take 20 mg by mouth 1 (one) time each day Take with 40 mg for 60 mg total/day Active furosemide (Lasix) 40 MG tabletIndicati ons:Stage 3b chronic kidney disease (HCC),Hyperten eileen Take 1 tablet (40 mg total) by mouth in the morning and 1 tablet (40 mg total) in the evening. 180 tablet 3 08/25/19 25 026 Active LORazepam (ATIVAN) 1 MG tablet Take 1 mg by mouth 07/25/19 22 025 Discontin ued(Med List Maintenan ce) Active Problems Problem Noted Date Diagnosed Date [...] Encounters Date Type Department Care Team Description 02/26/2025 10:30 AM EDT Office Visit [facility] [address] [place] [phone] Ml Tanner ARNP Stage 3b chronic kidney disease (HCC) (Primary Dx); Hypertension; Anemia in chronic kidney disease; Vitamin D deficiency, not otherwise specified 01/05/2025 Orders Only [facility] [address] [address] Ml TannerMARIA DE JESUS Stage 3b chronic kidney disease (HCC); Hypertension; Anemia in chronic kidney disease; Vitamin D deficiency, not otherwise specified from Last 3 Months Immunizations Immunization Administration Dates Next Due Hepatitis B 01/24/2018,11/18/2016 Moderna SARS-COV-2 05/26/2021,10/23/2020, 021 Pneumococcal Polysaccharide 03/24/2015 Shingrix 05/07/2021,04/19/2020,07/13/2018 Tdap 02/17/2018,02/03/2016 Family History Medical History Relation Comments Cancer Father Heart disease Father Relation Status Comments Father Social History Tobacco Use Types Packs/Day Years [...] Sign Reading Time Taken Comments Blood Pressure 116/78 02/26/2025 10:45 AM EDT Pulse 74 02/26/2025 10:30 AM EDT Temperature - - Respiratory Rate - - Oxygen Saturation 93% 02/26/2025 10:30 AM EDT Inhaled Oxygen Concentration - - Weight 81.9 kg (180 lb 9.6 oz) 02/26/2025 10:30 AM EDT Height 175.3 cm (5' 9 ) 01/24/2024 7:46 AM EDT Body Mass Index 26.67 01/24/2024 7:46 AM EDT Plan of Treatment Upcoming Encounters Date Type Department Care Team (Late st Contact Info) Description 08/27/2025 10:30 AM EDT Office Visit [facility] [address] [phone] Ml Tanner, 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 [address] [facility] [address] [place] [phone] Health Maintenance Due Date Last Done Comments Colorectal Cancer Screening: Annual FOBT 2010 Colorectal Cancer Screening: Colonoscopy 2010 Colorectal Cancer Screening: Sigmoidoscopy 2010 Diabetes: Ophthalmology Exam 04/21/2022 Diabetes: Pedal Pulse Checked 04/21/2022 Diabetes: Sensory Foot Exam 04/21/2022 Diabetes: Visual Foot Exam 04/21/2022 Influenza Vaccine (#1) 2025 , 05/07/2021, 02/14/2019, Additional history exists Diabetes: Hemoglobin A1C 03/15/2025 025, 05/02/2024, 09/15/2023, Additional history exists Hepatitis B Vaccine Aged [...] FUNCTION PANEL Routine 12/26/2024 12:50 PM EDT HEMOGLOBIN A1C Routine 07/29/2022 9:17 AM EST Type 2 diabetes mellitus with diabetic chronic kidney disease (HCC) Stage 3 chronic kidney disease, not otherwise specified (HCC) Benign hypertension from Last 3 Months or Most Recently Relevant to Health Maintenance Results * (ABNORMAL) Protein, Total, Random Urine w/Creatinine (Protein/Creat Ratio) (12/26/2024 12:50 PM EDT) Creatinine, Ur 23.0 Not Estab. mg/dL [facility] Protein, Ur <4.0 Not Estab. mg/dL [facility] Comment:Verified by repeat analysis Urine Protein/Creatinin e Ratio Comment(A ) 0 - 200 mg/g creat [facility] Comment: This result is below the assay's limit of quantitation indicating a dilute specimen, potentially due to diurnal variation. Consider recollection at a time likely to provide a more concentrated urine. 12/26/2024 12:5 0 PM EDT 12/26/2024 [email or web address] LAB URINE ORDERABLES Final Result Performing Organization Address City/[facility]/ZIP Co de Phone Number [facility] [address] [place] [address] * Urine Albumin / Creatinine Ratio (12/26/2024 12:50 PM EDT) Albumin, Urine <3.0 Not Estab. ug/mL [facility] Albumin/Creatin ine Ratio <13 0 - 29 mg/g creat [facility] Comment: Normal: 0 - 29 Moderately increased: 30 - 300 Severely increased: >300 12/26/2024 12:5 0 PM EDT 12/26/2024 [email or web address] LAB URINE ORDERABLES Final Result [facility] [address] [place] [address] * (ABNORMAL) CBC (12/26/2024 12:50 PM EDT) WBC 8.2 3.4 - 10.8 x10E3/uL [facility] RBC 4.64 4.14 - 5.80 x10E6/uL [facility] Hemoglobin 12.2(L) 13.0 - 17.7 g/dL [facility] Hematocrit 39.0 37.5 - 51.0 % [facility] MCV 84 79 - 97 fL [facility] MCH 26.3(L) 26.6 - 33.0 pg [facility] MCHC 31.3(L) 31.5 - 35.7 g/dL [facility] RDW 13.6 11.6 - 15.4 % [facility] Platelets 214 150 - 450 x10E3/uL [facility] 12/26/2024 12:5 0 PM EDT 12/26/2024 [facility] LAB BLOOD ORDERABLES Final Result Performing Organization Address City/[facility]/ZIP Co de Phone Number [facility] [address] [place] [address] * PTH, Intact (12/26/2024 12:50 PM EDT) PTH 34 15 - 65 pg/mL [facility] 12/26/2024 12:5 0 PM EDT 12/[facility] Final Result Performing Organization Address City/[facility]/ZIP Co de Phone Number [facility] [address] [place] [address] * (ABNORMAL) Renal Function Panel (12/26/2024 12:50 PM EDT) Glucose 85 70 - 99 mg/dL [facility] BUN 11 8 - 27 mg/dL [facility] Creatinine 1.88(H) 0.76 - 1.27 mg/dL [facility] eGFR CKD-EPI CR 2020 40(L) >59 mL/min/1.7 3 [facility] BUN/Creatinine Ratio 6(L) 10 - 24 [facility] Sodium 139 134 - 144 mmol/L [facility] Potassium 4.4 3.5 - 5.2 mmol/L [facility] Chloride 103 96 - 106 mmol/L [facility] Bicarbonate (CO2) 19(L) 20 - 29 mmol/L [facility] Calcium 9.2 8.6 - 10.2 mg/dL [facility] Albumin 4.0 3.9 - 4.9 g/dL [facility] Phosphorus 4.0 2.8 - 4.1 mg/dL [facility] 12/26/2024 12:5 0 PM EDT 12/26/2024 Ml Tanner [facility] LAB BLOOD ORDERABLES Final Result [facility] [address] [place] [address] * (ABNORMAL) Hemoglobin A1c (07/29/2022 9:17 AM EST) Hemoglobin A1C 5.8(H) (4.0-5.6) % [facility] Comment: MONITORING: In known diabetic patients, hemoglobin A1c targets should be discussed with health care provider. DIAGNOSTIC USE: The English Diabetes Association (ADA) and the World [...] Supplement 1 Testing performed or reported by [facility], a Service of [facility], [address] [place] [address] Pratik Thompson MD, Endoscopic Technician [facility]# [id number] Blood specimen (specimen) Venous blood / Unknown 07/29/2022 9:17 AM EST 07/29/2022 9:20 AM EST us Rachid Ortega MD LAB BLOOD ORDERABLES Final Re sult [facility] from Last 3 Months or Most Recently Relevant to Health Maintenance Insurance [facility] ([id number]) [address] [facility] [place] [address] [facility] ([id number]) YOBANI CONTRERAS [phone] Care Teams President & Ceo Relationship Specialty Start Date End Date Saul Whatley [address] [place] [address] [place] [id number] PCP - General Internal Medicine 07/31/21
--- OUTSIDE RECORDS SUMMARY | 2025-03-12 14:04 | XMS_ITS | Clinical Summary ---
Author Organization [employer] Address [address] [facility] [address] [place] [address] Care Team Providers Care Stoner Hand Name Role Phone Saul Barbour MD Primary [...] toothpaste in the morning 100 mL 2 Active terazosin (Hytrin) 5 MG capsule TAKE 1 CAPSULE BY MOUTH AT BEDTIME Active traZODone (Desyrel) 50 MG tablet TAKE 1 TABLET BY MOUTH DAILY AT BEDTIME NEEDED FOR INSOMNIA Active Melatonin 10 MG capsule Take by mouth. Take 1 capsule by mouth at bedtime as needed Active FLUoxetine (PROzac) 20 MG capsuleIndication s:Mood disorder (CMS/HCC) Take 3 capsules (60 mg) by mouth in the morning. Take 1 capsule by mouth daily in the morning with 20 mg capsule for a total dose of 60 mg 90 capsule 3 Active ketotifen (Zaditor) 0.025 % ophthalmic solution 1 drop. Into affected eye twice a day Active famotidine (Pepcid) 20 MG tablet Take 20 mg by mouth in the morning. Active FLUoxetine (PROzac) 40 MG capsule Take 40 mg by mouth in the morning. Take 1 capsule by mouth daily in the morning with 20 mg capsule for a total dose of 60 mg Active Blood Glucose Monitoring Suppl (FreeStyle Lite) w/Device kit 1 kit in the morning. 1 kit Active ammonium lactate (Lac-Hydrin) 12 % lotion Apply to soles of feet daily and wear socks to bed at night Active hydrOXYzine HCl (Atarax) 25 MG tablet Take 25 mg by mouth in the morning. Active Ronda-Mucil 51.7 % powder MIX 1 ROUNDED TEASPOONFUL IN 8 OUNCES OF COOL LIQUID AND DRINK DAILY NEEDED FOR STOOL BULKING Active glucose blood (FREESTYLE LITE) test stripIndications: Type 2 diabetes mellitus with stage 3b chronic kidney disease, without long-term current use of insulin ([facility]) 1 each by Other route every 8 (eight) hours. 3x daily 100 each 11 024 Active ARIPiprazole (Abilify) 2.5 MG split tablet 1 tablet DAILY (route: oral) 024 Active Alcohol Swabs (Alcohol Prep) pads Per instructions 3 TIMES DAILY (route: topical) 024 Active tiZANidine (Zanaflex) 2 MG capsule 1 tablet EVERY 8 HOURS (route: oral) 024 Active Sod Fluoride-Potassiu m Nitrate 1.1-5 % pasteIndications: Dental caries [place] teeth for 2 minutes, morning and night. Spit, do not rinse. Do not eat or drink anything for 30 minutes following brushing. 112 g 3 024 Active Aspirin Low Dose 81 MG EC tabletIndications :Essential hypertension TAKE 1 TABLET (81 MG) BY MOUTH IN THE MORNING 90 tablet 3 025 Active gabapentin (Neurontin) 600 MG tabletIndications :Type 2 diabetes mellitus with stage 3b chronic kidney disease, with long-term current use of insulin ([facility]) TAKE 1 TABLET BY MOUTH 2 TIMES DAILY 180 tablet 3 025 Active glucose 4 g chewable tabletIndications :Hypoglycemia Chew 4 tablets (16 g) if needed for low blood sugar. 50 tablet 12 025 2025 Active D3-1000 25 MCG (1000 UT) tablet TAKE 1 TABLET BY MOUTH EVERY DAY 90 tablet 5 025 Active tiZANidine (Zanaflex) 2 MG tablet TAKE 1 TABLET EVERY 8 HOURS BY ORAL ROUTE NEEDED FOR 14 DAYS, FOR MUSCLE SPASMS. 42 tablet 3 025 Active Sodium Fluoride 1.1 % creamIndications: Dental caries [place] teeth for 2 minutes, morning and night. Spit, do not rinse. Do not eat or drink anything for 30 minutes following use. 112 g 3 025 Active ondansetron ODT (Zofran-ODT) 4 MG disintegrating tablet TAKE 1 TABLET BY MOUTH EVERY 8 HOURS NEEDED FOR NAUSEA 20 tablet 1 025 Active dicyclomine (Bentyl) 10 MG capsule TAKE 1 CAPSULE BY MOUTH FOUR TIMES A DAY 360 capsule 1 025 Active acetaminophen (Tylenol 8 Hour) 650 MG ER tablet TAKE 1 TABLET BY MOUTH EVERY 8 HOURS 90 tablet 1 Active Additional Information Patient not taking.Reported on 03/07/2025 atorvastatin (Lipitor) 80 MG tabletIndications :Mixed hyperlipidemia TAKE 1 TABLET BY MOUTH EVERY MORNING 90 tablet 3 Active Creon [id number] units capsule delayed-release particles capsule Take 1 capsule by mouth with breakfast, with lunch, and with evening meal. TAKE 1 CAPSULE BY MOUTH 3 TIMES A DAY WITH BREAKFAST,LUNCH AND EVENING MEAL 100 capsule 3 025 Active FreeStyle lancetsIndication s:Type 2 diabetes mellitus with stage 3a chronic kidney disease, without long-term current use of insulin (HCC) 1 each by Other route Once per day. USE TO TEST BLOOD SUGAR ONCE A DAY 100 each Active tadalafil (Cialis) 10 MG tablet Take 1 tablet (10 mg) by mouth if needed each day for erectile dysfunction. TAKE ONE TABLET BY MOUTH DAILY FOR sexual activity, DAILY medication 10 tablet 3 Active thiamine (Vitamin B-1) 100 MG tablet Take 1 tablet (100 mg) by mouth 2 times daily. TAKE 1 TABLET BY MOUTH TWO TIMES A DAY 60 tablet 3 Active Additional Information Patient not taking.Reported on 03/07/2025 Alcohol Swabs ([facility] Prep) 70 % padsIndications:T ype 2 diabetes mellitus with stage 3b chronic kidney disease, with long-term current use of insulin ([facility]) PLACE 1 EACH ON THE SKIN 3 TIMES DAILY. 100 each Active metoprolol tartrate (Lopressor) 25 MG tablet Take 1 tablet (25 mg) by mouth 2 times daily. TAKE 1 TABLET BY MOUTH TWICE A DAY 180 tablet Active Multiple Vitamin (Daily-Sadi) tablet Take 1 tablet by mouth in the morning. 90 tablet 1 Active loperamide (Imodium) 2 MG capsuleIndication s:Diarrhea, unspecified type TAKE 1 CAPSULE (2 MG) BY MOUTH IF NEEDED IN THE MORNING, AT NOON, AND AT BEDTIME FOR DIARRHEA. 24 capsule Active thiamine (Vitamin B-1) 100 MG tablet TAKE 1 TABLET BY MOUTH TWO TIMES A DAY 023 2024 Discontinued(R eorder (will not trigger notification to Pharmacy)) metoprolol tartrate (Lopressor) 25 MG tablet TAKE 1 TABLET BY MOUTH TWICE A DAY 023 2024 Discontinued(R eorder (will not trigger notification to Pharmacy)) Multiple Vitamin (Daily-Sadi) tablet Take 1 tablet by mouth in the morning. 90 tablet 1 023 2024 Discontinued(R eorder (will not trigger notification to Pharmacy)) tadalafil (Cialis) 10 MG tablet TAKE ONE TABLET BY MOUTH DAILY FOR sexual activity, DAILY medication 023 2024 Discontinued(R eorder (will not trigger notification to Pharmacy)) FreeStyle lancetsIndication s:Type 2 diabetes mellitus with stage 3a chronic kidney disease, without long-term current use of insulin ([facility]) USE TO TEST BLOOD SUGAR ONCE A DAY 100 each 1 024 2024 Discontinued(R eorder (will not trigger notification to Pharmacy)) Creon [id number] units capsule delayed-release particles capsule TAKE 1 CAPSULE BY MOUTH 3 TIMES A DAY WITH BREAKFAST,LUNCH AND EVENING MEAL 100 capsule 3 024 2024 Discontinued(R eorder (will not trigger notification to Pharmacy)) atorvastatin (Lipitor) 80 MG tabletIndications :Mixed hyperlipidemia TAKE 1 TABLET BY MOUTH EVERY MORNING 90 tablet 3 024 2024 Discontinued(R eorder (will not trigger notification to Pharmacy)) Alcohol Swabs (CVS Prep) 70 % padsIndications:T ype 2 diabetes mellitus with stage 3b chronic kidney disease, with long-term current use of insulin ([facility]) PLACE 1 EACH ON THE SKIN 3 TIMES DAILY. 100 each 11 025 2024 Discontinued(R eorder (will not trigger notification to Pharmacy)) loperamide (Imodium) 2 MG capsuleIndication s:Diarrhea, unspecified type TAKE 1 CAPSULE (2 MG) BY MOUTH IF NEEDED IN THE MORNING, AT NOON, AND AT BEDTIME FOR DIARRHEA. 24 capsule 025 2024 Discontinued(R eorder (will not trigger notification to Pharmacy)) Active Problems Problem Noted Date Diagnosed Date Right foot pain 12/13/2024 Assessment & Plan (12/13/2024 11:02 AM EDT): Will refer to podiatry for evaluation Abnormal EKG 03/27/2024 Acid reflux 03/27/2024 Acute hypokalemia 03/27/2024 Alcohol withdrawal seizure (CMS/HCC) 03/27/2024 Allergic rhinitis 03/27/2024 Autonomic neuropathy due [...] disorder, r ecurrent severe without psychotic features (CMS/HCC) 03/27/2024 Nicotine dependence 03/27/[address]-T wave [...] Impacted cerumen of left ear 01/13/2023 Seizure (CMS/HCC) 01/07/2023 CORRINE (acute kidney injury) 01/07/2023 Ground [...] chronic kidney disease 04/21/2022 Assessment & Plan (12/13/2024 10:49 AM EDT): Controlled A1c 5.7%, on jardiance due to proteinuria, keep low carb/no sugar diet, follow up in 3 months Assessment & Plan (11/09/2023 10:29 AM EDT): [...] diabetes 07/31/2021 Stage 3b chronic kidney disease ([facility]/HCC) 2021 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 Assessment & Plan (11/30/2022 3:05 PM EDT): Patient lost follow up with pneumologist, will place new referal Assessment & Plan (11/19/2022 12:29 PM EDT): Followed by pneumology, symptoms have remained stable Alcoholism ([facility]) 07/26/2018 Essential hypertension 07/26/2018 Assessment & Plan (12/13/2024 10:48 AM EDT): Controlled, keep low sodium diet and exercise as tolerated, keep bp log, target <140/90 Assessment & Plan (11/09/2023 10:22 AM EDT): [...] momht Mixed hyperlipidemia 07/26/2018 Assessment & Plan (12/13/2024 10:50 AM EDT): Will order new heptic/lipid panel for assement Assessment & Plan (06/15/2023 12:27 PM EST): Will send new labs for guidance of therapy Assessment & Plan (09/03/2022 11:57 AM EDT): On statin therapy, will order new labs on 3 moths for guidance of therapy Mood disorder 07/26/2018 Smoker 07/26/2018 Raised prostate specific antigen 03/15/2018 High prostate specific antigen (PSA) 03/15/2018 Encounters Date Type Department Care Team Description 03/12/2025 Orders Only GENERIC EXTERNAL DATA DEPARTMENT Provider, Generic External Data 03/07/2025 1:00 PM EDT Office Visit [facility] [address] [place] [address] Shaka Velazquez, IRENE Full coverage crown needed for tooth at risk for fracture (Primary Dx); Non-restorable tooth 03/03/2025 Refill [facility] [address] [place] [address] Saul Barbour MD Diarrhea, unspecified type 02/27/2025 Telephone [facility] [address] [place] [address] Shaka Velazquez DMD 02/22/2025 9:00 AM EDT Office Visit [facility] [address] [place] [address] Shaka Velazquez DMD Secondary dental caries associated with failed or defective dental tenriism (Primary Dx); Full coverage crown needed for tooth at risk for fracture 02/08/2025 Refill [facility] [address] [place] [phone] Saul Barbour MD Mixed hyperlipidemia; Type 2 diabetes mellitus with stage 3a chronic kidney disease, without long-term current use of insulin ([facility]); Type 2 diabetes mellitus with stage 3b chronic kidney disease, with long-term current use of insulin ([facility]); Diarrhea, unspecified type 01/31/2025 9:00 AM EDT Office Visit [facility] [address] [place] [address] Shaka Velazquez DMD Non-restorable tooth (Primary Dx) 01/30/2025 Orders Only [facility] [address] [place] [address] Andrea Anderson MD 01/30/2025 Telephone [facility] [address] [place] [phone] Saul Barbour MD Med Refill 01/27/2025 Refill [facility] [address] [place] [address] Saul Barbour MD 01/20/2025 Refill [facility] [address] [place] [phone] Saul Barbour MD 01/14/2025 Refill [facility] [address] [place], [place] [phone] Saul Barbour MD 01/10/2025 9:00 AM EDT Office Visit [facility] [address] [place] [address] Shaka Velazquez DMD Necrosis of dental pulp (Primary Dx); Secondary dental caries associated with failed or defective dental tenriism 01/07/2025 Refill [facility] [address] [place] [address] Saul Barbour MD Diarrhea, unspecified type 01/05/2025 Orders Only [facility] [address] [place] [address] Andrea Anderson MD 12/28/2024 Telephone [facility] [address] [place] [address] Saul Barbour MD Nurse Triage 12/19/2024 9:00 AM EDT Office Visit [facility] [address] [place] [address] Shaka Velazquez DMD Secondary dental caries associated with failed or defective dental tenriism (Primary Dx); Dental caries 12/19/2024 Telephone [facility] [address] [facility] [place] [address] ABRAHAM PT 12/14/2024 Results Follow-Up [facility] [address] [place] [address] Saul Barbour MD POCT Glucose, POCT HGB A1C, Lipid Panel, Standard, Hepatic Function Panel 12/13/2024 10:30 AM EDT Office Visit [facility] [address] [place] [address] Saul Barbour MD Essential hypertension (Primary Dx); Type 2 diabetes mellitus with stage 3a chronic kidney disease, without long-term current use of insulin ([facility]); Mixed hyperlipidemia; Right foot pain 12/13/2024 Travel 12/11/2024 Refill [facility] [address] [place] [address] Saul Barbour MD from Last 3 Months Immunizations Immunization Administration Dates Next Due Hep B, adult [...] Pressure 110/70 03/07/2025 1:04 PM EDT Pulse 92 12/13/2024 10:24 AM EDT Temperature 37.1 C (98.8 F) 12/13/2024 10:24 AM EDT Respiratory Rate 20 12/13/2024 10:24 AM EDT Oxygen Saturation 94% 09/29/2024 2:20 PM EDT Inhaled Oxygen Concentration - - Weight 78.5 kg (173 lb) 12/13/2024 10:24 AM EDT Height 175.3 cm (5' 9 ) 12/13/2024 10:24 AM EDT Body Mass Index 25.55 12/13/2024 10:24 AM EDT Plan of Treatment Upcoming Encounters Date Type Department Care Team (Late st Contact Info) Description 03/14/2025 9:30 AM EDT Telemedicine [facility] [address] [place] [address] Saul Barbour MD [address] [place] [address] 03/22/2025 1:00 PM EDT Office Visit [facility] [address] [place] [address] Shaka Velazquez DMD [address] [place] [address] 06/08/2025 8:00 AM EST Office Visit [facility] [address] [place] [address] Una Sultana Health Maintenance Due Date Last Done Comments CT Colonography 1961 Dental X-Ray: Full Mouth 1961 FIT DNA/Cologuard 1961 FIT 1961 FOBT 1961 HIV Screening 1961 Sigmoidoscopy 1961 Dental X-Ray: Bitewings 02/04/2025 02/04/2024, 06/23 Dental Oral Exam 05/31/2025 11/28/2024, , 06/23/2022 Dental Prophylaxis 05/31/2025 11/28/2024, 0 02/04/2024, 07/16/2022 Diabetes: Hemoglobin A1C 06/15/2025 025, 05/02/2024, 09/15/2023, Additional history exists Alcohol/Substance Use Screening 12/13/2025 12/13/2024 Depression Screening 12/13/2025 12/13/2024, 12/14/19 Diabetes: Foot Exam 12/13/2025 12/13/2024, 12/13/2024, 12/13/2024, Additional history exists Disability Screening 12/13/2025 12/13/2024 Lipid Panel 12/13/2025 12/13/2024, 02/05, 09/03/2021, Additional history exists SDOH Screening 12/13/2025 12/13/2024 Tobacco Screening 03/07/2026 03/07/2025 Eye Exam 01/05/2027 01/05/2025 Colonoscopy 11/06/2031 11/05/2021, 05/04/2011 Colorectal Cancer Screening 11/06/2031 DTaP/Tdap/Td Vaccines (4 - Td or Tdap) 01/30/2033 01/30/2023, 02/17/2018, 02/03/2016 Hepatitis B Vaccines Completed 06/10/2018, 01/24/2018, 11/18/2016 Zoster Vaccines Completed 05/07/2021, 04/07, 07/13/2018 Pneumococcal Vaccine: 50+ Years Completed 12/26/2022, 03/24/2015 Hepatitis C Screening Completed 01/21/2023 RSV Patients and Patients Aged 60 years or older Completed 07/23/2023 COVID-19 Vaccine Completed 02/08/2024, , [...] GAS Routine 03/12/2025 12:1 9 PM EDT CASE PRESENTATION, DETAILED AND EXTENSIVE TREATMENT PLANNING Routine 03/07/2025 1:00 PM EDT Full coverage crown needed for tooth at risk for fracture Non-restorable tooth 29 CROWN - PORCELAIN/CERAMIC Routine 03/07/2025 1:00 PM EDT Full coverage crown needed for tooth at risk for fracture 28 CROWN - PORCELAIN/CERAMIC Routine 03/07/2025 1:00 PM EDT Full coverage crown needed for tooth at risk for fracture 2 EXTRACTION, ERUPTED TOOTH OR EXPOSED ROOT (ELEVATION/FORCEPS REMOVAL) Routine 03/07/2025 1:00 PM EDT Non-restorable tooth CASE PRESENTATION, DETAILED AND EXTENSIVE TREATMENT PLANNING Routine 02/22/2025 9:00 AM EDT Secondary dental caries associated with failed or defective dental tenriism Full coverage crown needed for tooth at risk for fracture 28,29 CROWN PREP Routine 02/22/2025 9:00 AM EDT Secondary dental caries associated with failed or defective dental tenriism Full coverage crown needed for tooth at risk for fracture 29 CORE BUILDUP, INCL ANY PINS WHEN REQ Routine 02/22/2025 9:00 AM EDT Secondary dental caries associated with failed or defective dental tenriism Full coverage crown needed for tooth at risk for fracture 28 CORE BUILDUP, INCL ANY PINS WHEN REQ Routine 02/22/2025 9:00 AM EDT Secondary dental caries associated with failed or defective dental tenriism Full coverage crown needed for tooth at risk for fracture CASE PRESENTATION, DETAILED AND EXTENSIVE TREATMENT PLANNING Routine 01/31/2025 9:00 AM EDT Non-restorable tooth 30 EXTRACTION, ERUPTED TOOTH REQ REMOVAL OF BONE AND/OR SECTIONING OF TOOTH Routine 01/31/2025 9:00 AM EDT Non-restorable tooth XR FOOT 3+ VIEWS RIGHT Routine 2025 12:11 PM EDT CASE PRESENTATION, DETAILED AND EXTENSIVE TREATMENT PLANNING Routine 01/10/2025 9:00 AM EDT Secondary dental caries associated with failed or defective dental tenriism Necrosis of dental pulp ENDO - CLEAN AND SHAPE Routine 01/10/2025 9:00 AM EDT Secondary dental caries associated with failed or defective dental tenriism Necrosis of dental pulp HM DIABETES EYE EXAM Routine 01/05/2025 4:21 PM EDT CASE PRESENTATION, DETAILED AND EXTENSIVE TREATMENT PLANNING Routine 12/19/2024 9:00 AM EDT Secondary dental caries associated with failed or defective dental tenriism Dental caries 31 EXTRACTION, ERUPTED TOOTH REQ REMOVAL OF BONE AND/OR SECTIONING OF TOOTH Routine 12/19/2024 9:00 AM EDT Secondary dental caries associated with failed or defective dental tenriism Dental caries 32 EXTRACTION, ERUPTED TOOTH OR EXPOSED ROOT (ELEVATION/FORCEPS REMOVAL) Routine 12/19/2024 9:00 AM EDT Secondary dental caries associated with failed or defective dental tenriism Dental caries HEPATIC FUNCTION PANEL Routine 12/13/2024 11:00 AM EDT Type 2 diabetes mellitus with stage 3a chronic kidney disease, without long-term current use of insulin (CMS/HCC) LIPID PANEL, STANDARD Routine 12/13/2024 11:00 AM EDT Type 2 diabetes mellitus with stage 3a chronic kidney disease, without long-term current use of insulin (CMS/[facility]) POCT GLYCATED HEMOGLOBIN, TOTAL Routine 12/13/2024 10:28 AM EDT Type 2 diabetes mellitus with stage 3a chronic kidney disease, without long-term current use of insulin (CMS/[facility]) POCT GLUCOSE Routine 12/13/2024 10:28 AM EDT Type 2 diabetes mellitus with stage 3a chronic kidney disease, without long-term current use of insulin ([facility]) PROPHYLAXIS - ADULT Routine 11/28/2024 9 :00 AM EDT PERIODIC ORAL EVALUATION - ESTABLISHED PATIENT Routine 11/28/2024 9:00 AM EDT Secondary dental caries associated with failed or defective dental tenriism Dental caries BITEWINGS - 4 RADIOGRAPHIC IMAGES Routine 02/04/2024 9:30 AM EDT Dental calculus Dental plaque Dental caries HEPATITIS C ANTIBODY REFLEX Routine 01/21/2023 2:59 PM EDT Back problem HM COLONOSCOPY Routine 11/05/2021 from Last 3 Months or Most Recently Relevant to Health Maintenance Results * (ABNORMAL) VENOUS BLOOD GAS (03/12/2025 12:19 PM EDT) VBG pH 7.44(H) 7.32 - 7.43 [facility] VBG PCO2 45 mmHg [facility] VBG PO2 29 mmHg [facility] VBG Base Excess 6.1 mmol/L [facility] VBG HCO3 31(H) 22 - 26 mmol/L [facility] O2 Sat, Santana 31.0 % [facility] 03/12/2025 12:1 9 PM EDT 03/12/2025 12:28 PM EDT us Generic External Data Provider LAB BLOOD ORDERAB LES Final Result [facility] [address] [place] [phone] * XR Foot 3+ Views Right (2025 12:11 PM EDT) Anatomical Region Laterality Modality Lower Extremities, Foot Right Radiogra phic Imaging us Historical Provider MD YOUSSEF XR PROCEDURES Final R esult * Diabetes Eye Exam (01/05/2025 4:21 PM EDT) us Historical Provider HEALTH MAINTENANCE Final Result * Hepatic Function Panel (12/13/2024 11:00 AM EDT) Bilirubin, Total 0.4 0.0 - 1.0 mg/dL [facility] Bilirubin, Direct 0.2 0.0 - 0.5 mg/dL [facility] Aspartate Amino Transferase 35 5 - 37 U/L [facility] Alanine Aminotransferase 29 0 - 40 U/L [facility] Total Protein 7.3 6.5 - 8.0 g/dL [facility] Albumin Level 4.7 3.5 - 5.0 g/dL [facility] Alkaline Phosphatase 60 39 - 117 U/L [facility] Blood Venous blood specimen / Unknown 12/13/2024 11:00 AM EDT 12/13/2024 4:03 PM EDT Saul Spicer MD LAB BLOOD ORDERABL ES Final Result [facility] [address] [place] [phone] * (ABNORMAL) Lipid Panel, Standard (12/13/2024 11:00 AM EDT) Triglycerides 192(H) <150 mg/dL [facility] Comment:Desirable Triglyceri de: less than 150 mg/dLBorderline High Triglyceride 150-199 mg/dLHigh Triglyceride: 200-499 mg/dLVery High Triglyceride: greater than or equal to 5OO mg/dL Cholesterol 160 <200 mg/dL [facility] Comment:Desirable Cholestero l: less than 200 mg/dLBorderline High Cholesterol: 200-239 mg/dLHigh Cholesterol: greater than 239 mg/dL LDL Cholesterol Calculated 86 <100 mg/dL [facility] Comment:Desirable LDL: less than 100 mg/dLNear Optimal/Above Optimal LDL: 110- 129 mg/dLBorderline High LDL: 130-159 mg/dLHigh LDL: 160-189 mg/dLVery High LDL: greater than or equal to 190 mg/dL HDL Cholesterol 36(L) >40 mg/dL [facility] Comment:Desirable HDL: great er than 40 mg/dL Note: This HDL assay may give artificially low results in patients with liver disease. Blood Venous blood specimen / Unknown 12/13/2024 11:00 AM EDT 12/13/2024 4:03 PM EDT Saul Spicer MD LAB BLOOD ORDERABL ES Final Result [facility] [address] [place] [address] [phone] * POCT HGB A1C (12/13/2024 10:28 AM EDT) Hemoglobin A1C 5.7 4.0 - 5.7 % QC Media Lot # [id number] Lot# Expiration Date Blood 12/13/2024 10:2 8 AM EDT Saul Spicer MD POINT OF CARE TEST ENTER/EDIT ORDERABLES Final Result * POCT Glucose (12/13/2024 10:28 AM EDT) Glucose Blood, POC 103 60 - 200 mg/dL QC Media Lot # [id number] Lot# Expiration Date Blood Capillary blood specimen / Unknown 12/13/2024 10:28 AM EDT Saul Spicer MD POINT OF CARE TEST ENTER/EDIT ORDERABLES Final Result * Hepatitis C Antibody Reflex (01/21/2023 2:59 PM EDT) Hepatitis C Antibody Nonreactive Nonreactive [facility] Comment:Antibodies to HCV no t detected; does not exclude early acuteHCV infection. 01/21/2023 2:59 PM EDT 01/21/2023 5:19 PM EDT Saul Spicer MD LAB BLOOD ORDERABL ES Final Result [facility] [address] [place] [address] [phone] * Colonoscopy (11/05/2021) Colonoscopy performed us Historical Provider HEALTH MAINTENANCE Final Result from Last 3 Months or Most Recently Relevant to Health Maintenance Insurance [facility] < [address] [facility] Care Teams Stoner Hand Relationship Specialty Start Date End Date Saul Barbour MD [address] [place] [phone] PCP - General Internal Medicine 10/27/19 Harshad Ho 08/13/23
--- OUTSIDE RECORDS SUMMARY | 2025-04-22 20:00 | XMS_ITS | Clinical Summary ---
Author Organization Unknown Care Team Providers Care Sediment Remediation Consultant Name Role Phone HIRAM PARR MD, BRENT Unavailable U cara OGDEN RN, LUIS Unavailable Unavailable Payers Payer Name Policy Type Policy Number Effective Date Expira tion Date 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 (route: transderma l) Med Classific ation: Endocrine Trelegy Ellipta 200 mcg-62.5 mcg-25 mcg powder for inhalation 02-11 00:00: 00 09-01 00:00 :00 No [id number] Per instruc tions EVERY DAY Per instructio ns EVERY DAY (route: inhalation ) Med Classific ation: Respirato ry Therapy Agents azelastine 137 mcg (0.1 %) nasal spray aerosol 09-01 00:00: 00 Yes [id number] Per instruc tions 1 SPRAY INTRANASAL LY TWICE A DAY Per instructio ns 1 SPRAY INTRANASAL LY TWICE A DAY (route: nasal) Med Classific ation: Respirato ry Therapy Agents aspirin 81 mg tablet,olya yed release 09-01 00:00: 00 Yes [id number] 1 tablet DAILY 1 tablet DAILY (route: oral) Med Classific ation: Hematolog ical Agents Alcohol Prep Pads 09-01 00:00: 00 Yes [id number] Per instruc tions 3 TIMES DAILY Per instructio ns 3 TIMES DAILY (route: topical) Med Classific ation: Antisepti cs and Disinfect ants furosemide 40 mg tablet 02-28 00:00: 00 09-01 23:59 :00 No [id number] 1 tablet 2 TIMES DAILY 1 tablet 2 TIMES DAILY (route: oral) Med Classific ation: Cardiovas cular Therapy Agents lorazepam 1 mg tablet 09-01 00:00: 00 08-29 23:59 :00 No [id number] Per instruc tions THREE TIMES A DAY NEEDED Per instructio ns THREE TIMES A DAY NEEDED (route: oral) Med Classific ation: Central Nervous System Agents acetaminoph en ER 650 mg tablet,exte nded release 09-01 00:00: 00 08-29 23:59 :00 No [id number] 1 tablet EVERY 8 HOURS 1 tablet EVERY 8 HOURS (route: oral) Med Classific ation: Analgesic , Anti-infl ammatory or Antipyret ic quetiapine 50 mg tablet 09-01 00:00: 00 11-17 23:59 :00 No [id number] Per instruc tions EVERY DAY NEEDED Per instructio ns EVERY DAY NEEDED (route: oral) Med Classific ation: Central Nervous System Agents metoprolol tartrate 25 mg tablet 09-01 00:00: 00 Yes [id number] 1 tablet TWICE A DAY 1 tablet TWICE A DAY (route: oral) Med Classific ation: Cardiovas cular Therapy Agents amlodipine 10 mg tablet 09-01 00:00: 00 09-01 23:59 :00 No [id number] 1 tablet DAILY 1 tablet DAILY (route: oral) Med Classific ation: Cardiovas cular Therapy Agents atorvastati n 80 mg tablet 09-01 00:00: 00 Yes [id number] 1 tablet BEDTIME 1 tablet BEDTIME (route: oral) Med Classific ation: Cardiovas cular Therapy Agents bupropion HCl XL 300 mg 24 hr tablet, extended release 09-01 00:00: 00 03-30 23:59 :00 No [id number] 1 tablet DAILY 1 tablet DAILY (route: oral) Med Classific ation: Central Nervous System Agents fluoxetine 40 mg capsule 09-01 00:00: 00 Yes [id number] 2 capsule DAILY 2 capsule DAILY (route: oral) Med Classific ation: Central Nervous System Agents gabapentin 600 mg tablet 09-01 00:00: 00 Yes [id number] 1 tablet 2 TIMES DAILY 1 tablet 2 TIMES DAILY (route: oral) Med Classific ation: Central Nervous System Agents ipratropium 0.5 mg-albutero l 3 mg (2.5 mg base)/3 mL nebulizatio n soln 09-01 00:00: 00 Yes [id number] Per instruc tions NEEDED Per instructio ns NEEDED (route: inhalation ) Med Classific ation: Respirato ry Therapy Agents Jardiance 25 mg tablet 02-28 00:00: 00 06-23 23:59 :00 No [id number] 2 tablet DAILY 2 tablet DAILY (route: oral) Med Classific ation: Endocrine melatonin 10 mg capsule 09-01 00:00: 00 Yes [id number] 1 capsule BEDTIME 1 capsule BEDTIME (route: oral) Med Classific ation: Central Nervous System Agents metoprolol tartrate 25 mg tablet 02-28 00:00: 00 09-01 00:00 :00 No [id number] 1 tablet 2 TIMES DAILY 1 tablet 2 TIMES DAILY (route: oral) Med Classific ation: Cardiovas cular Therapy Agents prednisone 5 mg tablet 02-28 00:00: 00 09-01 00:00 :00 No [id number] 1 tablet DAILY 1 tablet DAILY (route: oral) Med Classific ation: Endocrine quetiapine 100 mg tablet 09-01 00:00: 00 Yes [id number] 1 tablet BEDTIME 1 tablet BEDTIME (route: oral) Med Classific ation: Central Nervous System Agents quetiapine 50 mg tablet 09-01 00:00: 00 11-17 23:59 :00 No [id number] 1 tablet DAILY 1 tablet DAILY (route: oral) Med Classific ation: Central Nervous System Agents sulindac 150 mg tablet 02-28 00:00: 00 09-01 00:00 :00 No [id number] 1 tablet 2 TIMES DAILY 1 tablet 2 TIMES DAILY (route: oral) Med Classific ation: Analgesic , Anti-infl ammatory or Antipyret ic tadalafil 10 mg tablet 09-01 00:00: 00 Yes [id number] 1 tablet DAILY 1 tablet DAILY (route: oral) Med Classific ation: Drugs to treat Erectile Dysfuncti on terazosin 5 mg capsule 09-01 00:00: 00 Yes [id number] 1 capsule BEDTIME 1 capsule BEDTIME (route: oral) Med Classific ation: Cardiovas cular Therapy Agents trazodone 50 mg tablet 09-01 00:00: 00 Yes [id number] 1 tablet BEDTIME 1 tablet BEDTIME (route: oral) Med Classific ation: Central Nervous System Agents Trelegy Ellipta 200 mcg-62.5 mcg-25 mcg powder for inhalation 09-01 00:00: 00 Yes [id number] 2 inhalat ion DAILY 2 inhalation DAILY (route: inhalation ) Med Classific ation: Respirato ry Therapy Agents Vitamin D3 25 mcg (1,000 unit) capsule 09-01 00:00: 00 Yes [id number] 1 capsule DAILY 1 capsule DAILY (route: oral) Med Classific ation: Electroly te Balance-N utritiona l Products Wellbutrin XL 150 mg 24 hr tablet, extended release 09-01 00:00: 00 Yes [id number] 1 tablet DAILY 1 tablet DAILY (route: oral) Med Classific ation: Central Nervous System Agents sulindac 150 mg tablet 2022-06 00:00: 00 09-01 00:00 :00 No [id number] 150 mg 2 TIMES DAILY 150 mg 2 TIMES DAILY (route: oral) Med Classific ation: Analgesic , Anti-infl ammatory or Antipyret ic metformin 850 mg tablet 06-28 00:00: 00 09-01 23:59 :00 No [id number] 1 tablet 2 TIMES DAILY 1 tablet 2 TIMES DAILY (route: oral) Med Classific ation: Endocrine amlodipine 5 mg tablet 09-01 00:00: 00 Yes [id number] 1 tablet DAILY 1 tablet DAILY (route: oral) Med Classific ation: Cardiovas cular Therapy Agents Fiber (with aspartame) 3.4 gram/5.8 gram oral powder 09-01 00:00: 00 Yes [id number] 5 g DAILY 5 g DAILY (route: oral) Med Classific ation: Gastroint estinal Therapy Agents furosemide 20 mg tablet 09-01 00:00: 00 Yes [id number] 1 tablet DAILY 1 tablet DAILY (route: oral) Med Classific ation: Cardiovas cular Therapy Agents Abilify 5 mg tablet 11-17 00:00: 00 Yes [id number] 1 tablet DAILY 1 tablet DAILY (route: oral) Med Classific ation: Central Nervous System Agents potassium chloride ER 10 mEq tablet,exte nded release 01-19 00:00: 00 01-20 23:59 :00 No [id number] 1 tablet DAILY 1 tablet DAILY (route: oral) Med Classific ation: Electroly te Balance-N utritiona l Products tizanidine 2 mg tablet 01-19 00:00: 00 Yes [id number] 1 tablet EVERY 8 HOURS 1 tablet EVERY 8 HOURS (route: oral) Med Classific ation: Locomotor System Creon 24,000-76,0 00-120,000 unit capsule,del ayed release 2023-06 0-24 00:00: 00 Yes [id number] 1 capsule 3 TIMES DAILY 1 capsule 3 TIMES DAILY (route: oral) Med Classific ation: Gastroint estinal Therapy Agents dicyclomine 10 mg capsule 2023-06 0-24 00:00: 00 Yes [id number] 1 capsule 4 TIMES DAILY 1 capsule 4 TIMES DAILY (route: oral) Med Classific ation: Gastroint estinal Therapy Agents tolterodine ER 4 mg capsule,ext ended release 24 hr 2023-06 0-24 00:00: 00 Yes [id number] 1 capsule DAILY 1 capsule DAILY (route: oral) Med Classific ation: Genitouri nary Therapy lorazepam 1 mg tablet 3-25 00:00: 00 Yes [id number] FOR ANXIETY 1 tablet 3 TIMES DAILY 1 tablet 3 TIMES DAILY (route: oral) Med Classific ation: Central Nervous System Agents acetaminoph en ER 650 mg tablet,exte nded release 3-25 00:00: 00 Yes [id number] PAIN 1 tablet EVERY 8 HOURS 1 tablet EVERY 8 HOURS (route: oral) Med Classific ation: Analgesic , Anti-infl ammatory or Antipyret ic amoxicillin 500 mg capsule 7-15 00:00: 00 12-23 23:59 :00 No [id number] 1 capsule EVERY 8 HOURS 1 capsule EVERY 8 HOURS (route: oral) Med Classific ation: Anti-Infe ctive Agents Plan of Treatment Planned Activity Planned Date [...] AWARENESS FOR SAFETY AND WILL NOTIFY CLINICAL CORRECTIONS SPECIALIST AND PHYSICIAN/PROVIDER WITH ANY CHANGE IN CONDITION. [code = SKILLED NURSE WILL MAINTAIN SITUATIONAL AWARENESS FOR SAFETY AND WILL NOTIFY CLINICAL CORRECTIONS SPECIALIST AND PHYSICIAN/PROVIDER WITH ANY CHANGE IN CONDITION.] Future Scheduled Test SKILLED NU RSE TO ASSESS PATIENT S PSYCHOSOCIAL STATUS TO IDENTIFY POTENTIAL ISSUES THAT MAY COMPLICATE THE PROVISION OF THE PLAN OF CARE INCLUDING THE PATIENT S ABILITY TO ACCESS COMMUNITY RESOURCES AND PSYCHOSOCIAL SUPPORT SERVICES. [code = SKILLED NURSE TO ASSESS PATIENT S PSYCHOSOCIAL STATUS TO IDENTIFY POTENTIAL ISSUES THAT MAY COMPLICATE THE PROVISION OF THE PLAN OF CARE INCLUDING THE PATIENT S ABILITY TO ACCESS COMMUNITY RESOURCES AND PSYCHOSOCIAL SUPPORT SERVICES.] Future Scheduled Test SKILLED NU RSE TO [...] OF EXACERBATION TO REPORT. WEIGHT TO BE OBTAINED WEEKLY. WEIGHT GAIN OF 2 LBS OVERNIGHT OR 5 LBS IN 1 WEEK TO BE REPORTED TO PHYSICIAN. IF UNABLE TO WEIGH PATIENT, SKILLED NURSE TO OBTAIN MEASUREMENT OF CALF IN CM AT EACH VISIT AND REPORT AN INCREASE OF 1 CM TO PHYSICIAN. [code = SKILLED NURSE FOR O/A, TEACHING AND SELF-MANAGEMENT RELATED TO HEART FAILURE. INSTRUCT PATIENT/CAREGIVER ON SIGNS AND SYMPTOMS OF EXACERBATION TO REPORT. WEIGHT TO BE OBTAINED WEEKLY. WEIGHT GAIN OF 2 LBS OVERNIGHT OR 5 LBS IN 1 WEEK TO BE REPORTED TO PHYSICIAN. IF UNABLE TO WEIGH PATIENT, SKILLED NURSE TO OBTAIN MEASUREMENT OF CALF IN CM AT EACH VISIT AND REPORT AN INCREASE OF 1 CM TO PHYSICIAN.] Future Scheduled Test SKILLED NU RSE FOR O/A AND TEACHING OF ENDOCRINE SYSTEM TO IDENTIFY CHANGES ASSOCIATED WITH EXACERBATION DIABETES FOR EARLY INTERVENTION OF COMPLICATIONS. [code = SKILLED NURSE FOR O/A AND TEACHING OF ENDOCRINE SYSTEM TO IDENTIFY CHANGES ASSOCIATED WITH EXACERBATION DIABETES FOR EARLY INTERVENTION OF COMPLICATIONS.] Goal 2024-10-24 Patient Goal - STAY [facility] OF [facility] WITH [facility] Goal 2024-12-21 Patient Goal - STAY OUT OF [facility] WITH [facility] Goal 2025-02-21 Patient Goal - STAY OUT OF [facility] WITH [facility] Goal Patient Goal - STAY OUT OF [facility] WITH [facility] Goal 2023-12-28 Patient Goal - NO HOSPITALIZ ATION Goal 2024-02-24 Patient Goal - NO HOSPITALIZ ATION Goal 2024-04-27 Patient Goal - STAY OUT OF [facility] WITH [facility] Goal 2024-06-23 Patient Goal - STAY OUT OF [facility] WITH [facility] Goal 2024-08-25 Patient Goal - STAY OUT OF [facility] WITH [facility] Goal 2023-10-28 Patient Goal - NO HOSPITALIZ ATION Goal Provider Goal - A PLAN OF CARE WILL BE ESTABLISHED THAT MEETS PATIENT'S SENIOR CARE NEEDS AND INCLUDES PATIENT GOAL FOR HOME [...] VERBALIZE SIGNS AND SYMPTOMS OF EXACERBATION OF DIABETESREPORT TO NURSE/PHYSICIAN THROUGHOUT THE CERTIFICATION PERIOD. Encounters Start Date/Time End Date/Time Encounter Type Admission Type Attending [facility] Facility Care Department Encounter ID Discharge Date Discharge Status Discharge Condition Discharge Reason Percent Goals Met 2025-02-23 00:00:00 2025-04-23 00:00:00 Outpatient RECERTIFIC ATION [facility] [id number]
== END 2025-03-12 11:55 | disposition home or self-care (01) ==
LOC: HO.HPS 11:24
PROVIDERS: PCP Internal Medicine; Visit Provider Internal Medicine
DX: J44.9 Chronic obstructive pulmonary disease, unspecified (principal); J96.92 Respiratory failure, unspecified with hypercapnia; G47.33 Obstructive sleep apnea (adult) (pediatric); Z99.89 Dependence on other enabling machines and devices; F17.210 Nicotine dependence, cigarettes, uncomplicated
CPT/HCPCS: 99213